=== PATIENT | female | born 1945 | race Caucasian/White ===

== ENCOUNTER 2016-07-28 12:28 | Inpatient (IN) | payer MEDICARE, MEDICAID ==
[~2016-07-28] VITALS: Ht 160 cm; Wt 86.0 kg
[2016-07-28] VITALS (7 sets, daily range): BP systolic 127–144; BP diastolic 60–78; PULSE 80–89; RESP 18–20; TEMP 97.8–98.2; O2SAT 95–98
[~2016-07-28 12:28] MED LIST: ALPR.5 PO; CELE20TA PO; CREON24 PO; HYDR-3516 PO; IPRA1POW8 NEB; LEVO50TA4 PO; METO25TA3 PO; MYLASUS2 PO; POTA10CA PO; QUET1TAB7 PO; XARE15TA PO; ZANTTAB PO
--- NOTE | 2016-07-28 13:04 | PD ---
HPI Chief Complaint: General Weakness Time Seen by Provider: 12:48 Travel History International Travel<30 days: No Contact w/Intl Traveler<30days: No Traveled to known affect area: No History of Present Illness HPI Patient is a 70-year-old female who presents to emergency room for evaluation of general weakness. Patient reports that she does not know why she is in the emergency room, patient reports that she cannot provide any information about her health care, requested I call her primary care doctor at home docs. Patient reports that she has been coughing, reports that she has had a productive cough for an unknown period of time. Patient denies chest pain. Patient reports that she does use 2 L of oxygen at all times, patient reports that her primary care doctor recently increased her oxygen to 3 L. Patient is alert to person and place, requests that I did not ask any questions and I just call her primary care doctor as "they know everything." Patient refuses to provide further HPI at this time. PFSH Past Medical History Hx Anticoagulant Therapy: Yes (XARELTO) Arthritis: Yes (HANDS) Asthma: No Atrial Fibrillation: Yes Autoimmune Disease: No Blood Disorders: No Anxiety: Yes Depression: Yes Heart Rhythm Problems: Yes Cancer: Yes (HX LUNG CA) Cardiac Catheterization: Yes Cardiovascular Problems: Yes (HBP) High Cholesterol: No Chemotherapy: Yes (HX) Chest Pain: Yes Congestive Heart Failure: Yes COPD: Yes Cerebrovascular Accident: No Coronary Artery Disease: Yes Diabetes: No Diminished Hearing: Yes Endocrine: No Fibromyalgia: Yes Gastrointestinal Disorders: Yes GERD: Yes Glaucoma: No Genitourinary: No Headaches: Yes Hepatitis: No Hiatal Hernia: No Hypertension: Yes Immune Disorder: No Implanted Vascular Access Dvce: No Kidney Stones: No Musculoskeletal: No Neurologic: No Psychiatric: Yes Reproductive: No Respiratory: Yes (COPD) Immunizations Current: Yes Migraines: No Myocardial Infarction: Yes (X2) Pneumonia: Yes Radiation Therapy: Yes Renal Failure: No Seizures: No Sickle Cell Disease: No Sleep Apnea: No Thyroid Disease: Yes Ulcer: No Menopausal: Yes : 1 Para: 1 Miscarriage: 0 : 0 Past Surgical History Abdominal Surgery: Yes AICD: No Arteriovenous Shunt: No Body Medical Devices: Neck stent Cardiac Surgery: No Section: No Cholecystectomy: Yes Ear Surgery: No Endocrine Surgery: No Eye Surgery: No Genitourinary Surgery: No Gynecologic Surgery: No Insulin Pump: No Joint Replacement: No Neurologic Surgery: No Oral Surgery: No Pacemaker: No Thoracic Surgery: No Other Surgery: Yes (POLYPS REMOVED FROM LARYNX; ENDOSCOPY) Social History Alcohol Use: No Tobacco Use: No Substance Use: No Allergies-Medications (Allergen,Severity, Reaction): Coded Allergies: Adhesives (Verified Allergy, Severe, RASK, 07/28/16) skin breakdown Calcium Channel Blockers (Verified Allergy, Severe, DIFFICULTY BREATHING, 05/03/16) Entex LA (Verified Allergy, Severe, Anaphylaxis, 05/03/16) Marcaine (Verified Allergy, Severe, DIFFICULTY BREATHING, 05/03/16) Minocin (Verified Allergy, Severe, DIFFICULTY BREATHING, 05/03/16) Nonsteroidal Anti-Inflammatory Agts (Verified Allergy, Severe, DIFFICULTY BREATHING, 05/03/16) PEANUTS (Verified Allergy, Severe, lips swelling, 05/03/16) Penicillin (Verified Allergy, Severe, DIFFICULTY BREATHING, 05/03/16) Prilosec (Verified Allergy, Severe, DIFFICULTY BREATHING, 05/03/16) Promethazine (Verified Allergy, Severe, DIFFICULTY BREATHING, 05/03/16) Sulfa (Verified Allergy, Severe, DIFFICULTY BREATHING, 05/03/16) Prednisone (Verified Allergy, Intermediate, rash and lips swell, 05/03/16) Zyrtec (Verified Allergy, Intermediate, rash, 05/03/16) Zyprexa (Verified Adverse Reaction, Severe, Severe vomiting., 05/03/16) Fluticasone (Verified Adverse Reaction, Intermediate, Rawness of the skin around the nose. Inhaled steroids do , 05/03/16) the same to her mouth. Omeprazole (Verified Adverse Reaction, Intermediate, [place] funny, 05/03/16) Zithromax (Verified Adverse Reaction, Intermediate, Says it made her jittery and it was harder to breathe. 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 Not sure would get same reaction to Injectable. Lian Huber MD. Klonapen (Adverse Reaction, Severe, Caused amnesia and a fall. , 07/10/13) Reported Meds & Prescriptions Reported Meds & Active Scripts Active Xarelto (Rivaroxaban) 15 Mg Tab 20 Mg PO DAILY Quetiapine (Quetiapine Fumarate) 25 Mg Tab 25 Mg PO BID Creon (Amylase/Lipase/Protease) 24,000-76,000-120,000 Units Cap 1 Cap PO TID Metoprolol Tartrate 25 Mg Tab 25 Mg PO Q12HR Hydrocodone-Acetaminophen 5-325 mg Tab 1 Tab PO Q4H PRN Celexa (Citalopram Hydrobromide) 20 Mg Tab 40 Mg PO DAILY Xanax (Alprazolam) 0.5 Mg Tab 0.5 Mg PO Q8H PRN Reported Ipratropium [place] 1 Pow Pow 0.5 Mg NEB TID Levothyroxine (Levothyroxine Sodium) 50 Mcg Tab 50 Mcg PO DAILY Zantac 150 Maximum Strength (Ranitidine HCl) 150 Mg Tab 150 Mg PO BID Mylanta Liq (Pxtcrnri-Zigcekkcx-Tuoikfktsew Liq) 200-200-20 Mg/5 Ml Susp 30 Ml PO Q8HR Take between meals or as directed. Shake well. Maximum 120 ml/24 hrs. Potassium Chloride ER (Potassium Chloride) 10 Meq Cap 10 Meq PO DAILY Review of Systems Except as stated in HPI: all other systems reviewed are Neg General / Constitutional: No: Fever Eyes: No: Visual changes HENT: No: Headaches Cardiovascular: No: Chest Pain or Discomfort Respiratory: Positive: Cough Gastrointestinal: No: Abdominal Pain Genitourinary: No: Dysuria Musculoskeletal: No: Pain Skin: No Rash Neurologic: Positive: Weakness Psychiatric: No: Depression Endocrine: No: Polydipsia Hematologic/Lymphatic: No: Easy Bruising Physical Exam Narrative GENERAL: No acute distress SKIN: Warm and dry. HEAD: Atraumatic. Normocephalic. ENT: No nasal bleeding or discharge. Mucous membranes pink and moist. NECK: Trachea midline. No JVD. CARDIOVASCULAR: Regular rate and rhythm. No murmur appreciated. RESPIRATORY: Patient with scattered wheezing throughout upper and lower lobes lungs . Breath sounds equal bilaterally. GASTROINTESTINAL: Abdomen soft, non-tender, nondistended. Hepatic and splenic margins not palpable. MUSCULOSKELETAL: No obvious deformities. No clubbing. No cyanosis. No edema. NEUROLOGICAL: Awake and alert. No obvious cranial nerve deficits. Motor grossly within normal limits. Normal speech. PSYCHIATRIC: Appropriate mood and affect; insight and judgment normal. Data Data Last Documented VS Vital Signs Date Time Temp Pulse Resp B/P Pulse Ox O2 Delivery O2 Flow Rate FiO2 07/28/16 17:30 97.8 89 18 137/68 96 Room Air 3 Orders Electrocardiogram (07/28/16 13:04) B-Type Natriuretic Peptide (07/28/16 13:04) Ckmb (Isoenzyme) Profile (07/28/16 13:04) Complete Blood Count With Diff (07/28/16 13:04) Comprehensive Metabolic Panel (07/28/16 13:04) Magnesium (Mg) (07/28/16 13:04) Prothrombin Time / Inr (Pt) (07/28/16 13:04) Act Partial Throm Time (Ptt) (07/28/16 13:04) Troponin I (07/28/16 13:04) Lipase (07/28/16 13:04) Chest, Single Ap (07/28/16 13:04) Ecg Monitoring (07/28/16 13:04) Iv Access Insert/Monitor (07/28/16 13:04) Oximetry (07/28/16 13:04) Oxygen Administration (07/28/16 13:04) Sodium Chloride 0.9% Flush (Ns Flush) (07/28/16 13:15) Albuterol-Ipratropium Neb (Duoneb Neb) (07/28/16 13:15) Ct Pulmonary Angiogram (07/28/16 14:32) Iohexol 350 Inj (Omnipaque 350 Inj) (07/28/16 15:36) Albuterol-Ipratropium Neb (Duoneb Neb) (07/28/16 17:15) Admit Order (Ed Use Only) (07/28/16 17:48) Labs Laboratory Tests Test 07/28/16 11:30 White Blood Count 4.8 TH/MM3 Red Blood Count 3.53 MIL/MM3 Hemoglobin 10.3 GM/DL Hematocrit 31.3 % Mean Corpuscular Volume 88.5 FL Mean Corpuscular Hemoglobin 29.3 PG Mean Corpuscular Hemoglobin 33.1 % Concent Red Cell Distribution Width 16.7 % Platelet Count 196 TH/MM3 Mean Platelet Volume 7.2 FL Neutrophils (%) (Auto) 74.6 % Lymphocytes (%) (Auto) 13.1 % Monocytes (%) (Auto) 9.0 % Eosinophils (%) (Auto) 2.5 % Basophils (%) (Auto) 0.8 % Neutrophils # (Auto) 3.6 TH/MM3 Lymphocytes # (Auto) 0.6 TH/MM3 Monocytes # (Auto) 0.4 TH/MM3 Eosinophils # (Auto) 0.1 TH/MM3 Basophils # (Auto) 0.0 TH/MM3 CBC Comment DIFF FINAL Differential Comment Prothrombin Time 12.3 SEC Prothromb Time International 1.1 RATIO Ratio Activated Partial 31.9 SEC Thromboplast Time Sodium Level 139 MEQ/L Potassium Level 3.9 MEQ/L Chloride Level 101 MEQ/L Carbon Dioxide Level 33.7 MEQ/L Anion Gap 4 MEQ/L Blood Urea Nitrogen 8 MG/DL Creatinine 0.92 MG/DL Estimat Glomerular Filtration 61 ML/MIN Rate Random Glucose 101 MG/DL Calcium Level 9.3 MG/DL Magnesium Level 2.2 MG/DL Total Bilirubin 0.5 MG/DL Aspartate Amino Transf 9 U/L (AST/SGOT) Alanine Aminotransferase 19 U/L (ALT/SGPT) Alkaline Phosphatase 67 U/L Total Creatine Kinase 41 U/L Troponin I 0.05 NG/ML B-Type Natriuretic Peptide 128 PG/ML Total Protein 6.6 GM/DL Albumin 3.4 GM/DL Lipase 181 U/L [facility] Medical Decision Making Medical Screen Exam Complete: Yes Emergency Medical Condition: Yes Interpretation(s) Vital Signs Date Time Temp Pulse Resp B/P Pulse Ox O2 Delivery O2 Flow Rate FiO2 07/28/16 12:44 98.2 85 20 136/60 98 Differential Diagnosis electrolyte abnormality, pneumonia, CHF, COPD exacerbation, pneumothorax Narrative Course Patient is a 70 year old female who presents to the ER with c/o of generalized weakness. Patient reports that she has been coughing, reports that she is productive cough. Patient unable to provide further history of present illness this time. Patient requests that I call her primary care doctor for further information about her health care. patients pcp: Guillermo Cm [phone] - pt request that I call Saloni Putnam if I want to know why she was sent to the ER call made to home aakash Campos from [facility] sent pt to ER as she has complete opacification of right hemithorax, pt with hx of lung cancer, reports that pt has been complaining of increasing sob discussed with tayla that this opacification has been there in the past, patient has been seen by pulmonary doctors, Dr. Mckenna and performed a bronchoscopy on previous admission. Tayla with home docs requests the patient be admitted and be seen by pulmonary physicians for possible bronchoscopy. I went to patient's room and reevaluated her, pt now finally speaking to me. pt reports that she has been feeling increasingly sob. pt reports that her oxygen had to be increased from 2 liter to 3 liter. pt reports that she would like to be admitted to the hospital so that she can have bronchoscopy performed. plan to admit her to the hospital under family medicine service as pt's family pcp dr amber pemberton case discussed with nathan hospitalist, accepts pt to dr betts service for obs Diagnosis Primary Impression: COPD exacerbation Additional Impressions: right lung opacification SOB (shortness of breath) Admitting Information Admitting Physician Requests: Observation Lizbeth Abraham DO Jul 28, 2016 13:04
[2016-07-28] MEDS: SODIUM CHLORIDE 0.9% FLUSH 5 ML FLUSH IVF PRN (13:09)
[2016-07-28] MEDS: RESP: ALBUTEROL 2.5 MG/IPRATROPIUM 0.5 MG NEB (SCH) INH ×2 (13:14→13:15)
[2016-07-28 13:34] LABS: AUTOMATED NEUTROPHIL # 3.6 TH/MM3 (1.8-7.7); BASOPHIL % 0.8 % (0.0-2.0); EOSINOPHIL # 0.1 TH/MM3 (0-0.4); EOSINOPHIL % 2.5 % (0.0-4.0); HEMATOCRIT 31.3 % (35.0-46.0); HEMO FLAGS DIFF FINAL; LYMPH % 13.1 % (9.0-44.0); LYMPHOCYTE # 0.6 TH/MM3 (1.0-4.8); MEAN CELL VOLUME 88.5 FL (80.0-100.0); MEAN CORPUSCULAR HEMOGLOBIN 29.3 PG (27.0-34.0); MEAN CORPUSCULAR HGB CONC 33.1 % (32.0-36.0); NEUT % 74.6 % (16.0-70.0); PLATELET COUNT 196 TH/MM3 (150-450); RED BLOOD COUNT 3.53 MIL/MM3 (4.00-5.30); RED CELL DISTRIBUTION WIDTH 16.7 % (11.6-17.2); WHITE BLOOD COUNT 4.8 TH/MM3 (4.0-11.0)
[2016-07-28 13:45] LABS: APTT (PATIENT) 31.9 SEC (24.3-30.1); INTERNATIONAL NORMALIZED RATIO 1.1 RATIO; PROTHROMBIN TIME - PATIENT 12.3 SEC (9.8-11.6)
--- NOTE | 2016-07-28 13:46 | RADRPT ---
EXAM DATE/TIME: 07/28/2016 13:04 [facility] COMPARISON: CT THORAX W/O CONTRAST, June 18, 2016, 9:16. CHEST SINGLE AP, June 172015, 4:29. INDICATIONS : Short of breath. MEDICAL HISTORY : Carcinoma, lung. SURGICAL HISTORY : Right lung surgery. ENCOUNTER: Initial ACUITY: 1 day PAIN SCORE: 0/10 LOCATION: Bilateral chest FINDINGS: AP upright portable view of the chest demonstrates stable appearance of near total opacification of t he right hemithorax but air identified only within the right main bronchus and trachea. The left pedro luis thorax is clear. Osseous structures are unremarkable. CONCLUSION: Persistent opacification of the right hemithorax. The left hemithorax is clear. Rox Rizvi MD on July 28, 2016 at 13:43 Board Certified Radiologist. This report was verified electronically.
[2016-07-28 13:52] LABS: ALT (GPT) 19 U/L (10-53); ANION GAP 4 MEQ/L (5-15); AST (GOT) 9 U/L (15-37); BICARBONATE 33.7 MEQ/L (21.0-32.0); BLOOD UREA NITROGEN 8 MG/DL (7-18); CHLORIDE 101 MEQ/L (98-107); GLOMERULAR FILTRATION RATE 61 ML/MIN (>89); MAGNESIUM 2.2 MG/DL (1.5-2.5); POTASSIUM 3.9 MEQ/L (3.5-5.1); SODIUM (NA) 139 MEQ/L (136-145)
[2016-07-28 13:54] LABS: ALKALINE PHOSPHATASE 67 U/L (45-117); TOTAL BILIRUBIN ADULT 0.5 MG/DL (0.2-1.0)
[2016-07-28 13:58] LABS: CREATINE KINASE 41 U/L (26-192)
[2016-07-28] MEDS ORDERED: IOHEXOL 350 MG/ML 10 ML VIAL (for RAD DIAG) IV ONE (15:36)
--- NOTE | 2016-07-28 15:55 | RADRPT ---
EXAM DATE/TIME: 07/28/2016 15:07 [facility] COMPARISON: CT ABDOMEN & PELVIS W CONTRAST, June 18, 2016, 14:21. CT THORAX W/O CONTRAST, June 18, 2016, 9:16. INDICATIONS : General weakness. Cough. Short of breath with exertion. IV CONTRAST: 50 cc Omnipaque 350 (iohexol) IV RADIATION DOSE: 16.75 CTDIvol (mGy) MEDICAL HISTORY : Myocardial infarction. Congestive heart failure. Chronic obstructive pulmonary disease. Lung cancer. SURGICAL HISTORY : Cholecystectomy. ENCOUNTER: Initial ACUITY: 2 days PAIN SCALE: 0/10 LOCATION: Chest TECHNIQUE: Volumetric scanning of the chest was performed using a pulmonary embolism protocol MIP images were re constructed. Using automated exposure control and adjustment of the mA and/or kV according to patien t size, radiation dose was kept as low as reasonably achievable to obtain optimal diagnostic quality images. FINDINGS: There is complete opacification of the right hemithorax predominantly related to consolidation of the right lung and marked elevation of the right hemidiaphragm. No significant pleural effusion is note d. The right main pulmonary artery is markedly narrowed. There is minimal irregularity involving th e anterior wall of the right main pulmonary artery which may represent minimal chronic pulmonary embo lism. No pulmonary embolism is noted within the left pulmonary artery or its branches. Scattered castro bpleural blebs are noted within the left upper lung field medially. No alveolar consolidation is not ed within the left lung to suggest pneumonia. Minimal scattered scarring and/or atelectasis is noted within the left lung base. No mediastinal, hilar or axillary lymphadenopathy is noted. Degenerativ e changes and scoliosis of the thoracic spine are noted. A 2 cm left renal mass is again noted and u nchanged. CONCLUSION: 1. Complete opacification of the right hemithorax which is predominantly related to chronic alveolar consolidation of the right lung as well as marked elevation of the right hemidiaphragm. No significa nt pleural effusion is noted. 2. Truncation of the right main pulmonary artery with minimal irregularity involving the anterior wal l of the main pulmonary artery on the right suggestive of minimal chronic pulmonary emboli. 3. The left lung is clear. 4. No evidence of left-sided pulmonary emboli. 5. Minimal subpleural blebs within the left upper lung field medially. 6. Degenerative changes and scoliosis of the thoracic spine. 7. 2 cm left renal mass is unchanged. Eliot Rosenbaum MD on July 28, 2016 at 15:31 Board Certified Radiologist. This report was verified electronically.
[2016-07-28] MEDS ORDERED: RESP: ALBUTEROL 2.5 MG/IPRATROPIUM 0.5 MG NEB (SCH) INH ONE (17:15)
[2016-07-28] MEDS ORDERED: RESP: ALBUTEROL 2.5 MG/IPRATROPIUM 0.5 MG NEB (SCH) NEB ONE (21:30)
[2016-07-28] MEDS: ALPRAZolam 0.5 MG TAB PO PRN (23:38)
[2016-07-28] MEDS: ACETAMINOPHEN/HYDROcodone 325 MG/5 MG TAB PO PRN (23:38)
[2016-07-29] VITALS (9 sets, daily range): BP systolic 120–156; BP diastolic 56–87; PULSE 63–96; RESP 18–22; TEMP 97–98.5; O2SAT 95–100
[2016-07-29] MEDS: LEVOTHYROXINE SODIUM 50 MCG TAB PO SCH (06:09)
[2016-07-29] MEDS: ALUMINUM/MAGNESIUM/SIMETH 30 ML CUP PO SCH ×3 (06:09→21:16)
[2016-07-29] MEDS: RESP: IPRATROPIUM 0.5 MG/2.5 ML NEB NEB SCH ×2 (08:00→14:16)
--- NOTE | 2016-07-29 08:39 | HHI.HP ---
HPI Service [facility] Primary Care Physician Roxi Boston M.D. Admission Diagnosis SOB, COPD Exacerbation, right lung opacification Diagnoses: Chief Complaint: SOB (Sherron Mota) Travel History International Travel<30 Days: No Contact w/Intl Traveler <30 Da: No Traveled to Known Affected Are: No (Sherron Mota) History of Present Illness This is a pleasant 70-year-old female with significant past medical history of COPD oxygen dependent, CAD status post OK 2, dementia, 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 fib, depression, anxiety, hypertension. Patient had recent hospitalization for COPD, shortness of breath , was found with right lung opacification and collapse. Underwent bronchoscopy and lung biopsy per Dr. Umana, findings were benign. It was thought that changes were secondary to chronic fibrosis. She was discharge in stable condition. Patient was brought back to the emergency room for evaluation for generalized weakness. During emergency room evaluation, patient was not able to provide any information. Emergency room physician contacted primary care physician and apparently patient had been coughing and has had increased shortness of breath. Patient is on oxygen at 2 L and was increased to 3 L. Patient was evaluated in the emergency room, laboratory workup was essentially unremarkable. BNP was 128. Patient was hemodynamically stable. Sats were 98 % on 3 L, blood pressure 136/60, respiratory rate 20, heart rate 85, temperature 98.2. CTA of the chest was completed showing complete opacification of right hemithorax which is predominantly related to chronic alveolar consolation of the right lung as well as marked elevation of the right hemidiaphragm. No significant pleural effusion. Truncation of the right main pulmonary artery with minimal irregularity involving the anterior wall of the main pulmonary artery and the right suggestive of minimal chronic pulmonary emboli. Left lung is clear. No evidence of left pulmonary emboli. Minimal subpleural blebs within the left upper lung field medially. 2 cm left renal mass is unchanged. This changes appear similar to previous CT findings. Emergency room physician spoke to patient's PCP, they spoke to Zee from [facility] and she requested that the patient be admitted and be seen by pulmonary for possible bronchoscopy. Patient is now evaluated, she doesn't want to talk, she's keeping her eyes closed. She knows she is in the hospital and knows the year. She doesn't know why she is here but states that she has been short of breath and feeling weak and shaky. She thinks she may have had a fever and some chills, denies any chest pain. Patient lives at home, has home health care. Patient is admitted for further evaluation and treatment. (Sherron Mota) Review of Systems ROS Limitations: Poor Historian Respiratory: COMPLAINS OF: Cough, Sputum production, Shortness of breath Other WEAKNESS (Sherron Mota) Past Family Social History Past Medical History COPD CAD s/p OK x2 Neck abscess (drained 02/19/16) Esophageal Stricture, s/p esophageal dilation 08/2015 Small Cell Lung Cancer on R 04/21 [id number] Chemo & Radiation Diverticulosis Afib Depression Anxiety HTN Hypothyroidism Dementia Admitted with SOB, found with collapsed right upper lobe, occlusion RUL bronchus , had bronch/lung bx, benign findings. Changes likely due to chronic fibrosis. Left renal mass Past Surgical History Vocal Cord Polypectomy Breast Bx Laparoscopic Choly Esophageal Dilations Recurrent PortaCath Removed in 11/24 Cardiac Cath: ' Dr Urbina Normal Coronaries. Bilateral Cataracts Permanent IVC filter placed 08/30 Rhinolaryngoscopy 2011 Cardiac Cath 01/26 Dr Essie Paz at [facility] Permanent IVC filter placed 08/30 EGD and Colonoscopy at [facility] 08/30 S/P bronch, lung bx 06/2016, benign findings. Reported Medications Reported Meds & Active Scripts Active Xarelto (Rivaroxaban) 15 Mg Tab 20 Mg PO DAILY Quetiapine (Quetiapine Fumarate) 25 Mg Tab 25 Mg PO BID Creon (Amylase/Lipase/Protease) 24,000-76,000-120,000 Units Cap 1 Cap PO TID Metoprolol Tartrate 25 Mg Tab 25 Mg PO Q12HR Hydrocodone-Acetaminophen 5-325 mg Tab 1 Tab PO Q4H PRN Celexa (Citalopram Hydrobromide) 20 Mg Tab 40 Mg PO DAILY Xanax (Alprazolam) 0.5 Mg Tab 0.5 Mg PO Q8H PRN Reported Ipratropium [place] 1 Pow Pow 0.5 Mg NEB TID Levothyroxine (Levothyroxine Sodium) 50 Mcg Tab 50 Mcg PO DAILY Zantac 150 Maximum Strength (Ranitidine HCl) 150 Mg Tab 150 Mg PO BID Mylanta Liq (Vfswlnia-Wgtnzxlwe-Ykzykyxpcux Liq) 200-200-20 Mg/5 Ml Susp 30 Ml PO Q8HR Take between meals or as directed. Shake well. Maximum 120 ml/24 hrs. Potassium Chloride ER (Potassium Chloride) 10 Meq Cap 10 Meq PO DAILY (Sherron Mota) Allergies: Coded Allergies: Adhesives (Verified Allergy, Severe, RASK, 07/29/16) skin breakdown Calcium Channel Blockers (Verified Allergy, Severe, DIFFICULTY BREATHING, 07/29/16) Entex LA (Verified Allergy, Severe, Anaphylaxis, 07/29/16) Marcaine (Verified Allergy, Severe, DIFFICULTY BREATHING, 07/29/16) Minocin (Verified Allergy, Severe, DIFFICULTY BREATHING, 07/29/16) Nonsteroidal Anti-Inflammatory Agts (Verified Allergy, Severe, DIFFICULTY BREATHING, 07/29/16) PEANUTS (Verified Allergy, Severe, lips swelling, 07/29/16) Penicillin (Verified Allergy, Severe, DIFFICULTY BREATHING, 07/29/16) Prilosec (Verified Allergy, Severe, DIFFICULTY BREATHING, 07/29/16) Promethazine (Verified Allergy, Severe, DIFFICULTY BREATHING, 07/29/16) Sulfa (Verified Allergy, Severe, DIFFICULTY BREATHING, 07/29/16) Prednisone (Verified Allergy, Intermediate, rash and lips swell, 07/29/16) Zyrtec (Verified Allergy, Intermediate, rash, 07/29/16) Zyprexa (Verified Adverse Reaction, Severe, Severe vomiting., 07/29/16) Fluticasone (Verified Adverse Reaction, Intermediate, Rawness of the skin around the nose. Inhaled steroids do , 07/29/16) the same to her mouth. Omeprazole (Verified Adverse Reaction, Intermediate, [place] funny, 07/29/16) Zithromax (Verified Adverse Reaction, Intermediate, Says it made her jittery and it was harder to breathe. , 07/29/16) *MDRO Multi-Drug Resistant Organism (Unverified Adverse Reaction, Unknown , ESBL, 07/29/16) ESBL E. coli (urine) - 01/2014 Uncoded Allergies: Racemic Epinephrine Inhaled (Allergy, Intermediate, Flushing, Mouth Tingling , 08/26/12) Same reaction w/o lips swelling as with inhaled albuterol. Not sure would get same reaction to Injectable. Lian Huber MD. Jacob (Adverse Reaction, Severe, Caused amnesia and a fall. , 07/10/13) Active Ordered Medications Inpatient Medications Acetaminophen/ Hydrocodone Bitart ([place] 5-325 Mg) 1 tab Q4H PRN PO PAIN Last administered on 07/28/16 23:38; Start 07/28/16 at 23:30 Al Hydrox/Mg Hydrox/Simethicone (Mag-Al Plus Susp Liq) 30 ml Q8H PO Last administered on 07/29/16 06:09; Start 07/29/16 at 06:00 Albuterol/ Ipratropium (Duoneb Neb) 1 ampule ONCE ONCE NEB Last administered on 07/28/16 21:58; Start 07/28/16 at 21:30; Stop 07/28/16 at 21:31; Status DC Alprazolam (Xanax) 0.5 mg Q8H PRN PO ANXIETY Last administered on 07/28/16 23: 38; Start 07/28/16 at 23:30 Amylase/Lipase/ Protease (Creon 24-76-120) 1 cap TIDAC PO ; Start 07/29/16 at 08 :00 Citalopram Hydrobromide (CeleXA) 40 mg DAILY PO ; Start 07/29/16 at 09:00 Famotidine (Pepcid) 20 mg BID PO ; Start 07/29/16 at 09:00 Ipratropium [place] (Atrovent Neb) 0.5 mg BID NEB NEB ; Start 07/29/16 at 08:00 IV Flush (NS Flush) 2 ml UNSCH PRN IVF FLUSH AFTER USING IV ACCESS Last administered on 07/28/16 13:09; Start 07/28/16 at 13:15 Levothyroxine Sodium (Synthroid) 50 mcg DAILY@06 PO Last administered on 06:09; Start 07/29/16 at 06:00 Metoprolol Tartrate (Lopressor) 25 mg BID PO ; Start 07/29/16 at 09:00 Potassium Chloride (KCl) 10 meq DAILY PO ; Start 07/29/16 at 09:00 Quetiapine Fumarate (SEROquel) 25 mg BID PO ; Start 07/29/16 at 09:00 Rivaroxaban (Xarelto) 20 mg DAILY PO ; Start 07/29/16 at 09:00 Family History Alcoholism, Drug Abuse, Suicidal Depression/Anxiety. Cancer of the larynx in her brother (Smoker). Sister has gout and renal cancer. One sister has polyposis (Denise), RA in oldest sister. 16 yo niece hung herself. 1 sister with thyroid cancer. Mother was 54 years and killed herself with a 22 pistol. 1 Brother shot himself at age 46. Social History Marital Status: and lives alone Living Situation: Lives in own home, son lives across street Tobacco: DC'd cigs in . Alcohol: None Illicit drug use: none (Sherron Mota) Physical Exam Vital Signs Vital Signs Date Time Temp Pulse Resp B/P Pulse Ox O2 Delivery O2 Flow Rate FiO2 07/29/16 05:48 98.5 85 18 120/56 95 07/29/16 00:37 97.4 89 20 153/73 97 07/29/16 00:12 96 22 156/72 100 Nasal Cannula 2 07/28/16 21:58 95 Nasal Cannula 3.00 07/28/16 20:24 80 18 127/78 95 Nasal Cannula 2 07/28/16 17:30 97.8 89 18 137/68 96 Room Air 3 07/28/16 15:31 98.0 83 18 144/68 98 Room Air 07/28/16 13:15 98 Nasal Cannula 3.00 07/28/16 12:50 98 Nasal Cannula 3 07/28/16 12:50 89 20 98 Nasal Cannula 3 07/28/16 12:50 20 98 Nasal Cannula 3 07/28/16 12:44 98.2 85 20 136/60 98 Physical Exam GENERAL: This is a well-nourished, well-developed patient, in no apparent distress. SKIN: No rashes, ecchymoses or lesions. Cool and dry. HEAD: Atraumatic. Normocephalic. No temporal or scalp tenderness. EYES: Pupils equal round and reactive. Extraocular motions intact. No scleral icterus. No injection or drainage. ENT: Nose without bleeding, purulent drainage or septal hematoma. Throat without erythema, tonsillar hypertrophy or exudate. Uvula midline. Airway patent. NECK: Trachea midline. No JVD or lymphadenopathy. Supple, nontender, no meningeal signs. CARDIOVASCULAR: Regular rate and rhythm without murmurs, gallops, or rubs. RESPIRATORY: Breath sounds diminished. GASTROINTESTINAL: Abdomen soft, non-tender, nondistended. No hepato-splenomegaly , or palpable masses. No guarding. MUSCULOSKELETAL: Extremities without clubbing, cyanosis, or edema. No joint tenderness, effusion, or edema noted. No calf tenderness. Negative Homans sign bilaterally. NEUROLOGICAL: Opens eyes to close but keeping them closed during conversation, oriented to self, place, year. Poor historian. No focal deficits. Laboratory Laboratory Tests Test 07/28/16 11:30 White Blood Count 4.8 Red Blood Count 3.53 Hemoglobin 10.3 Hematocrit 31.3 Mean Corpuscular Volume 88.5 Mean Corpuscular Hemoglobin 29.3 Mean Corpuscular Hemoglobin 33.1 Concent Red Cell Distribution Width 16.7 Platelet Count 196 Mean Platelet Volume 7.2 Neutrophils (%) (Auto) 74.6 Lymphocytes (%) (Auto) 13.1 Monocytes (%) (Auto) 9.0 Eosinophils (%) (Auto) 2.5 Basophils (%) (Auto) 0.8 Neutrophils # (Auto) 3.6 Lymphocytes # (Auto) 0.6 Monocytes # (Auto) 0.4 Eosinophils # (Auto) 0.1 Basophils # (Auto) 0.0 CBC Comment DIFF FINAL Differential Comment Prothrombin Time 12.3 Prothromb Time International 1.1 Ratio Activated Partial 31.9 Thromboplast Time Sodium Level 139 Potassium Level 3.9 Chloride Level 101 Carbon Dioxide Level 33.7 Anion Gap 4 Blood Urea Nitrogen 8 Creatinine 0.92 Estimat Glomerular Filtration 61 Rate Random Glucose 101 Calcium Level 9.3 Magnesium Level 2.2 Total Bilirubin 0.5 Aspartate Amino Transf 9 (AST/SGOT) Alanine Aminotransferase 19 (ALT/SGPT) Alkaline Phosphatase 67 Total Creatine Kinase 41 Troponin I 0.05 B-Type Natriuretic Peptide 128 Total Protein 6.6 Albumin 3.4 Lipase 181 (Sherron Mota) Result Diagram: 07/28/16 1130 07/28/16 [address] Angiography 07/28/16 1432 Signed Impressions: Service Date/Time: Thursday, July 28, 2016 15:07 - CONCLUSION: 1. Complete opacification of the right hemithorax which is predominantly related to chronic alveolar consolidation of the right lung as well as marked elevation of the right hemidiaphragm. No significant pleural effusion is noted. 2. Truncation of the right main pulmonary artery with minimal irregularity involving the anterior wall of the main pulmonary artery on the right suggestive of minimal chronic pulmonary emboli. 3. The left lung is clear. 4. No evidence of left-sided pulmonary emboli. 5. Minimal subpleural blebs within the left upper lung field medially. 6. Degenerative changes and scoliosis of the thoracic spine. 7. 2 cm left renal mass is unchanged. Eliot Rosenbaum MD Chest X-Ray 07/28/16 1304 Signed Impressions: Service Date/Time: Thursday, July 28, 2016 13:04 - CONCLUSION: Persistent opacification of the right hemithorax. The left hemithorax is clear. Rox Rizvi MD (Sherron Mota) Assessment and Plan Problem List: (1) COPD exacerbation (2) Atrial fibrillation (3) CAD (coronary artery disease) (4) Small cell lung cancer Plan: History (5) History of OK (myocardial infarction) (6) Anxiety (7) Depression (8) Renal mass Assessment and Plan Admit to Dr. Caputo 70-year-old female with history of COPD, oxygen dependent, lung cancer, recent admission for right lung opacification, underwent bronchial biopsy with findings of chronic fibrosis, benign findings. Patient presented to the emergency room with complaints of generalized weakness, increased shortness of breath. Likely COPD exacerbation Continue with scheduled DuoNeb's and when necessary Continue with oxygen at 2 L to keep sats greater than 90% Consult pulmonology for evaluation Imaging studies reviewed, findings similar to admission. Doubtful the patient will need further workup. She underwent bronc and biopsy, benign findings. History A. fib on chronic anticoagulation, stable Continue with home medications History of lung cancer, stable Continue to monitor Renal mass, stable -Monitor, f/u urology as OP Anxiety and depression, stable -continue with home meds DVT prophylaxis, continue with Xarelto Pepcid for GI prophylaxis Case management consultation for discharge planning, resume home health residential medications reviewed, initiated as indicated Plan of care discussed with patient, attending and registered nurse. Further management of the patient be dependent on the hospital course This patient was seen by myself and Dr. 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
[2016-07-29] MEDS: POTASSIUM CHLORIDE 10 MEQ CONTROLLED RELEASE TAB PO SCH (10:40)
[2016-07-29] MEDS: LIPASE/PROTEASE/AMYLASE (24,000/76,000/120,000) CAP PO SCH ×3 (10:40→17:59)
[2016-07-29] MEDS: METOPROLOL TARTRATE 25 MG TAB PO SCH ×2 (10:40→21:16)
[2016-07-29] MEDS: CITALOPRAM HYDROBROMIDE 40 MG TAB PO SCH (10:40)
[2016-07-29] MEDS: RIVAROXABAN 20 MG TAB PO SCH (10:40)
[2016-07-29] MEDS: QUEtiapine FUMARATE 25 MG TAB PO SCH ×2 (10:40→21:17)
[2016-07-29] MEDS: FAMOTIDINE 20 MG TAB PO SCH ×2 (10:40→21:16)
--- NOTE | 2016-07-29 10:47 | EKG ---
Date Performed: 07/28/2016 Time Performed: 13:20:48 PTAGE: 70 years EKG: ATRIAL FIBRILLATION BORDERLINE RIGHT AXIS DEVIATION ABNORMAL RHYTHM ECG PREVIOUS TRACING : 07/04/2016 12.00 Compared to prior tracing no significant change DOCTOR: Bryson Alvarado Interpretating Date/Time 07/29/2016 10:46:23
[2016-07-29] MEDS ORDERED: DICYCLOMINE HCL 10 MG CAP PO ONE (16:45)
[2016-07-29] MEDS: RESP: ALBUTEROL 2.5 MG/3 ML NEB (SCH) NEB ×2 (18:58→21:31)
[2016-07-29] MEDS: SODIUM CHLORIDE 0.9% FLUSH 5 ML FLUSH IVF PRN (21:16)
[2016-07-29] MEDS: ALPRAZolam 0.5 MG TAB PO PRN (21:17)
[2016-07-29] MEDS: ACETAMINOPHEN/HYDROcodone 325 MG/5 MG TAB PO PRN (21:22)
[2016-07-30] VITALS (7 sets, daily range): BP systolic 100–171; BP diastolic 53–79; PULSE 60–99; RESP 16–18; TEMP 97–98.6; O2SAT 95–100
[2016-07-30] MEDS: RESP: ALBUTEROL 2.5 MG/3 ML NEB (SCH) NEB ×4 (04:00→20:58)
[2016-07-30] MEDS: LEVOTHYROXINE SODIUM 50 MCG TAB PO SCH (06:14)
[2016-07-30] MEDS: ALUMINUM/MAGNESIUM/SIMETH 30 ML CUP PO SCH ×3 (06:14→21:01)
--- NOTE | 2016-07-30 06:48 | MB ---
cc: KODI BARRERA DATE OF CONSULTATION 07/29/2016 REASON FOR CONSULTATION COPD and dyspnea PRESENT ILLNESS This is a 70-year-old white female with a past history of COPD and coronary artery disease and history of lung cancer non-small cell type diagnosed in 2003. She has undergone radiation and chemotherapy. She also has had a history of hypertension and chronic atrial fibrillation, depression and anxiety. Recently was hospitalized for exacerbation of COPD and she does have a longstanding history of atelectasis of the right lung and underwent bronchoscopy and biopsy two months ago and has had chronic atelectasis due to obstruction of the upper lobe bronchus on the right and biopsies at this time were benign. She has chronic fibrotic changes in the right lung field and right pleura. The patient had been on home oxygen at 3 liters. She was brought to the emergency room due to shortness of breath, weakness and chest congestion and a CTA of the chest was done which showed a opacification of the right hemithorax with chronic alveolar consolidation of the right lung as well as elevation of the right hemidiaphragm with no significant effusion. He has truncation of the right main pulmonary artery with irregularity involving the anterior wall of the main pulmonary artery on the right suggestive of chronic minimal pulmonary emboli. She had a 2 cm left renal mass which was unchanged. The patient has had no hemoptysis. No fevers or chills. She does have anxiety, depression, weakness and abdominal discomfort. OTHER PAST HISTORY Includes: 1. Coronary artery disease with PA x2 2. History of esophageal stricture with dilatations. 3. History of non-small cell lung CA ischemia and radiation. 4. History of anxiety, depression and hypertension. PAST SURGICAL HISTORY Includes: 1. Multiple bronchoscopies 2. Vocal cord polypectomy 3. Breast biopsies 4. Cardiac catheterization 5. Cataract surgery 6. IVC filter placement for clots. MED LIST Included: 1. Xarelto 20 mg daily 2. Quetiapine 25 mg b.i.d. 3. Creon 1 capsule t.i.d. 4. Metoprolol 25 mg b.i.d. 5. Celexa 40 mg a day 6. Xanax 0.5 mg t.i.d. p.r.n. 7. Nebulized Atrovent solution three times a day 8. Potassium chloride 10 mEq daily HABITS The patient does not smoke at present and no significant alcohol use. ALLERGIES SULFA, PREDNISONE, ZYRTEC, PENICILLIN, MINOCIN, MARCAINE, ZYPREXA, FLUTICASONE AND ZITHROMAX. FAMILY HISTORY Noncontributory REVIEW OF SYSTEMS The patient has been overweight. She has wheezing, dyspnea, postnasal drip and cough, epigastric distress and reflux. She has no urinary symptoms. No leg or calf muscle pains. She has some joint pains in her extremities and leg swelling. PHYSICAL EXAMINATION This is a moderately obese elderly lady anxious and in no acute distress. VITAL SIGNS: Blood pressure 138/80, pulse is 85, respirations 20, temperature 97.5. HEENT: Head normocephalic. Pupils reactive. Nasal mucosae edematous. Throat mildly injected. NECK: Supple. No lymphadenopathy. No bruits. CHEST: Decreased breath sounds over the right lung [place] with occasional wheezes in the left lung [place]. HEART: The heart sounds are irregular S1-S2. No murmur. No S3. ABDOMEN: Soft and obese without masses or organomegaly or tenderness. Bowel sounds active. EXTREMITIES: Mild edema. Decreased pulses. Reflexes are brisk. There were no gross motor deficits. NEUROLOGIC: Cranial nerves are intact. IMPRESSION 1. COPD with chronic bronchitis and acute exacerbation. 2. 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 3. History of non-small cell lung CA status post Chemo-radiation. 4. History of myocardial infarct and ASHD. 5. Depression and anxiety 6. Atrial fibrillation PLAN The patient will be maintained on three liters of oxygen, nebulized Atrovent solution t.i.d. p.r.n. and she has been started on antidepressants. At this point, she does not require any steroids and if she is coughing up dark sputum, we will place her on antibiotic therapy. She is clinically stable. The patient can be discharged since we have already completed her bronchoscopy several weeks ago and found to have benign and no unusual infections. The chronic atelectasis of the lung likely will not reverse. A follow up chest x-ray will be done next month. Thank you for this consultation. MD REJI Ruth/STEPHANIE /10:50 PM 6:34 AM
--- NOTE | 2016-07-30 08:17 | HHI.PR ---
Subjective Remarks somnolent, tries to open eyes oriented to self and place "I don't feel well" can't elaborate, no resp. distress noted sats 96% on 3L/NC meds reviewed, given Seroquel, Xanax, and [place] at 2100. Objective Objective Results - Vital Signs Date Time Temp Pulse Resp B/P Pulse Ox O2 Delivery O2 Flow Rate FiO2 07/30/16 04:00 98.6 61 18 100/53 96 07/30/16 00:00 07/29/16 21:24 98.3 07/29/16 20:47 96 Nasal Cannula 3.00 07/29/16 20:00 97.5 78 20 144/87 100 07/29/16 16:19 97.8 63 20 130/60 96 07/29/16 14:16 98 Nasal Cannula 3.00 07/29/16 11:21 97.0 79 18 141/67 100 Result Diagram: 07/28/16 1130 07/28/16 [address] Angiography 07/28/16 1432 Signed Impressions: Service Date/Time: Thursday, July 28, 2016 15:07 - CONCLUSION: 1. Complete opacification of the right hemithorax which is predominantly related to chronic alveolar consolidation of the right lung as well as marked elevation of the right hemidiaphragm. No significant pleural effusion is noted. 2. Truncation of the right main pulmonary artery with minimal irregularity involving the anterior wall of the main pulmonary artery on the right suggestive of minimal chronic pulmonary emboli. 3. The left lung is clear. 4. No evidence of left-sided pulmonary emboli. 5. Minimal subpleural blebs within the left upper lung field medially. 6. Degenerative changes and scoliosis of the thoracic spine. 7. 2 cm left renal mass is unchanged. Eliot Rosenbaum MD Chest X-Ray 07/28/16 1304 Signed Impressions: Service Date/Time: Thursday, July 28, 2016 13:04 - CONCLUSION: Persistent opacification of the right hemithorax. The left hemithorax is clear. Rox Rizvi MD ROS General: Other (12 point ROS unable to obtain ) Physical Exam Physical Exam GENERAL: This is a well-nourished, well-developed patient, in no apparent distress. SKIN: No rashes, ecchymoses or lesions. Cool and dry. HEAD: Atraumatic. Normocephalic. No temporal or scalp tenderness. EYES: Pupils equal round and reactive. Extraocular motions intact. No scleral icterus. No injection or drainage. ENT: Nose without bleeding, purulent drainage or septal hematoma. Throat without erythema, tonsillar hypertrophy or exudate. Uvula midline. Airway patent. NECK: Trachea midline. No JVD or lymphadenopathy. Supple, nontender, no meningeal signs. CARDIOVASCULAR: Regular rate and rhythm without murmurs, gallops, or rubs. RESPIRATORY: Breath sounds diminished. GASTROINTESTINAL: Abdomen soft, non-tender, nondistended. No hepato-splenomegaly , or palpable masses. No guarding. MUSCULOSKELETAL: Extremities without clubbing, cyanosis, or edema. No joint tenderness, effusion, or edema noted. No calf tenderness. Negative Homans sign bilaterally. NEUROLOGICAL: Somnolent, difficult to assess. Urinary Catheter: No Vascular Central Line Catheter: No A/P Diagnosis: (1) COPD exacerbation (2) Atrial fibrillation (3) CAD (coronary artery disease) (4) Small cell lung cancer Plan: History (5) History of [place] (myocardial infarction) (6) Anxiety (7) Depression (8) Renal mass Assessment and Plan 70-year-old female with history of COPD, oxygen dependent, lung cancer, recent admission for right lung opacification, underwent bronchial biopsy with findings of chronic fibrosis, benign findings. Patient presented to the emergency room with complaints of generalized weakness, increased shortness of breath. Likely COPD exacerbation Continue with scheduled DuoNeb's and when necessary Continue with oxygen at 2 L to keep sats greater than 90% Consult pulmonology for evaluation-evaluated per Dr. Preciado, d/w him. No further work up requires. Continue duonebs, cleared for discharge. Imaging studies reviewed, findings similar to admission. Doubtful the patient will need further workup. She underwent bronc and biopsy, benign findings. -stable, no distress. History A. fib on chronic anticoagulation, stable Continue with home medications History of lung cancer, stable Continue to monitor Renal mass, stable -Monitor, f/u urology as OP Anxiety and depression, stable -continue with home meds -d/w RN, instructed not to give pain meds with benzos. Pt. overly sedated today DVT prophylaxis, continue with Xarelto Pepcid for GI prophylaxis Case management consultation for discharge planning, resume home health care will wait for pt. wake up stable, no resp. distress Plan to discharge later today F/U Dr. Preciado 2 weeks Diet-heart healthy Activity-as tolerated D/W RN D/W Dr. Caputo D/W pt. This patient was seen by myself and Dr. Caputo, this note is written on his behalf Problem Qualifiers (1) Atrial fibrillation: Qualified Code: I48.91 - Atrial fibrillation, unspecified type (2) CAD (coronary artery disease): (3) Depression: Qualified Code: F32.9 - Depression, unspecified depression type Sherron Mota Jul 30, 2016 08:17
[2016-07-30] MEDS: FAMOTIDINE 20 MG TAB PO SCH ×2 (09:20→21:02)
[2016-07-30] MEDS: LIPASE/PROTEASE/AMYLASE (24,000/76,000/120,000) CAP PO SCH ×3 (09:20→17:21)
[2016-07-30] MEDS: POTASSIUM CHLORIDE 10 MEQ CONTROLLED RELEASE TAB PO SCH (09:20)
[2016-07-30] MEDS: RIVAROXABAN 20 MG TAB PO SCH (09:21)
[2016-07-30] MEDS: QUEtiapine FUMARATE 25 MG TAB PO SCH ×2 (09:21→21:02)
[2016-07-30] MEDS: METOPROLOL TARTRATE 25 MG TAB PO SCH ×2 (09:21→21:02)
[2016-07-30] MEDS: CITALOPRAM HYDROBROMIDE 40 MG TAB PO SCH (09:21)
[2016-07-30] MEDS: RESP: IPRATROPIUM 0.5 MG/2.5 ML NEB NEB SCH ×2 (09:22→20:58)
[2016-07-30] MEDS: ALPRAZolam 0.5 MG TAB PO PRN ×2 (10:40→18:32)
--- NOTE | 2016-07-30 11:01 | HHI.FF ---
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 My clinical findings support the need for the requested home health care services because: Patient has SOB Deconditioned w/ increased weakness I certify that my clinical findings support that this patient is homebound because: Impaired cognitive ability/safety Hx COPD- exertion dyspnea/weakness Unsafe to leave home unassisted Need for psychosocial assistance Sherron Mota Jul 30, 2016 11:01
[2016-07-30] MEDS ORDERED: LACTULOSE SYRUP 20 GM/30 ML CUP PO PRN (11:45)
[2016-07-30] MEDS ORDERED: DICYCLOMINE HCL 20 MG TAB PO ONE (11:45)
--- NOTE | 2016-07-30 12:14 | HHI.PR ---
Subjective Remarks Coughed up yellow sputum. SOB and had abdominal pain.No fever Objective Vital Signs Date Time Temp Pulse Resp B/P Pulse Ox O2 Delivery O2 Flow Rate FiO2 07/30/16 12:03 98.0 60 18 122/58 100 07/30/16 09:25 95 Nasal Cannula 3.00 07/30/16 08:15 97.0 99 16 109/57 99 07/30/16 04:00 98.6 61 18 100/53 96 07/30/16 00:00 07/29/16 21:24 98.3 07/29/16 20:47 96 Nasal Cannula 3.00 07/29/16 20:00 97.5 78 20 144/87 100 07/29/16 16:19 97.8 63 20 130/60 96 07/29/16 14:16 98 Nasal Cannula 3.00 Result Diagram: 07/28/16 1130 07/28/16 1130 Objective Remarks This is a moderately obese elderly lady anxious and in no acute distress. HEENT: Head normocephalic. Pupils reactive. Nasal mucosae edematous. Throat mildly injected. NECK: Supple. No lymphadenopathy. No bruits. CHEST: Decreased breath sounds over the right lung san[place] with occasional wheezes in the left lung sanford. HEART: The heart sounds are irregular S1-S2. No murmur. No S3. ABDOMEN: Soft and obese without masses or organomegaly or tenderness. Bowel sounds active. EXTREMITIES: Mild edema. Decreased pulses. Reflexes are 1 +. There were no gross motor deficits. NEUROLOGIC: Cranial nerves are intact. Assessment and Plan Assessment and Plan IMPRESSION 1. COPD with chronic bronchitis and acute exacerbation. 2. 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 3. History of non-small cell lung CA status post Chemo-radiation. 4. History of myocardial infarct and ASHD. 5. Depression and anxiety 6. Atrial fibrillation Plan : 1. Add Levaquin 500 mg daily. 2. Solumedrol 40 mg bid. 3. O2 at 3 L. 4. Nebs tid atrovent. 5. Protonix 40 mg daily. Wandy Preciado MD Jul 30, 2016 12:13
[2016-07-30] MEDS: methylPREDNISolone SOD SUCC 40 MG/1 ML VIAL IV PUSH SCH ×2 (13:09→21:01)
[2016-07-30] MEDS: LEVOFLOXACIN 500 MG TAB PO SCH (13:09)
[2016-07-30] MEDS: SODIUM CHLORIDE 0.9% FLUSH 5 ML FLUSH IVF PRN (21:01)
[2016-07-30] MEDS: ACETAMINOPHEN/HYDROcodone 325 MG/5 MG TAB PO PRN (23:04)
[2016-07-31] VITALS (7 sets, daily range): BP systolic 141–179; BP diastolic 67–77; PULSE 61–80; RESP 16–18; TEMP 97.3–98.5; O2SAT 98–100
[2016-07-31] MEDS: ALPRAZolam 0.5 MG TAB PO PRN ×2 (01:37→13:54)
[2016-07-31] MEDS: RESP: ALBUTEROL 2.5 MG/3 ML NEB (SCH) NEB ×3 (03:13→15:52)
[2016-07-31] MEDS: ALUMINUM/MAGNESIUM/SIMETH 30 ML CUP PO SCH ×2 (05:56→13:08)
[2016-07-31] MEDS: LEVOTHYROXINE SODIUM 50 MCG TAB PO SCH (05:56)
[2016-07-31] MEDS: METOPROLOL TARTRATE 25 MG TAB PO SCH (08:50)
[2016-07-31] MEDS: FAMOTIDINE 20 MG TAB PO SCH (08:50)
[2016-07-31] MEDS: CITALOPRAM HYDROBROMIDE 40 MG TAB PO SCH (08:50)
[2016-07-31] MEDS: LIPASE/PROTEASE/AMYLASE (24,000/76,000/120,000) CAP PO SCH ×3 (08:50→16:18)
[2016-07-31] MEDS: QUEtiapine FUMARATE 25 MG TAB PO SCH (08:50)
[2016-07-31] MEDS: POTASSIUM CHLORIDE 10 MEQ CONTROLLED RELEASE TAB PO SCH (08:51)
[2016-07-31] MEDS: LEVOFLOXACIN 500 MG TAB PO SCH (08:51)
[2016-07-31] MEDS: RIVAROXABAN 20 MG TAB PO SCH (08:51)
[2016-07-31] MEDS: methylPREDNISolone SOD SUCC 40 MG/1 ML VIAL IV PUSH SCH (08:51)
[2016-07-31] MEDS ORDERED: LEVOFLOXACIN 500 MG TAB PO SCH (09:00)
--- NOTE | 2016-07-31 09:30 | HHI.PR ---
Subjective Interval History Alert oriented Has loses stool Still having cough with yellowish sputum History slight shortness of breath and wheezing No other complaint Review of system for 10 point system otherwise unremarkable Vitals/Results Vital Signs Vital Signs Date Time Temp Pulse Resp B/P Pulse Ox O2 Delivery O2 Flow Rate FiO2 07/31/16 07:41 98.2 62 16 158/74 99 07/31/16 05:23 141/67 07/31/16 04:34 97.7 70 18 179/77 98 07/31/16 00:23 98.0 70 18 148/68 98 07/30/16 20:30 98 Nasal Cannula 3.00 07/30/16 19:34 97.6 91 18 171/79 100 07/30/16 16:50 98.2 91 18 144/71 100 07/30/16 12:03 98.0 60 18 122/58 100 07/30/16 09:25 95 Nasal Cannula 3.00 CBC/BMP: 07/28/16 1130 07/28/16 1130 Physical Exam General General Appearance: Well Developed, Well Nourished, Comfortable Eyes Eye Exam: Sclera White, Extraocular Movement Intact Throat Throat Exam: Oral Mucosa Touchet & Moist Neck Neck Exam: Neck Supple, Trachea Midline Pulmonary Resp Exam: No Distress, Sputum Resp Remarks Bronchial breathing right base and right mid zone. Good air entry other zones. With occasional expiratory wheeze. No rhonchi noted Cardiology CV Remarks S1-S2 audible unable to hear S3 gallop Gastrointestinal/Abdomen GI Exam: Soft, Non-Tender, Bowel Sounds Present, Positive Bowel Movement Integumentary Skin Exam: Warm, Normal Turgor Neurologic Neuro Exam: Alert, Awake, Oriented, Moving All Extremities Assessment/Plan Assessment/Plan (1) COPD exacerbation (2) Atrial fibrillation (3) CAD (coronary artery disease) (4) Small cell lung cancer (5) History of PA (myocardial infarction) (6) Anxiety (7) Depression (8) Renal mass Plan 70-year-old female with history of COPD, oxygen dependent, lung cancer, recent admission for right lung opacification, underwent bronchial biopsy with findings of chronic fibrosis, benign findings. Patient presented to the emergency room with complaints of generalized weakness, increased shortness of breath. Likely COPD exacerbation Continue with scheduled DuoNeb's and when necessary Continue with oxygen to keep sats greater than 90% Consult pulmonology for evaluation-evaluated per Dr. Preciado, d/w him. No further work up requires. Continue duonebs, cleared for discharge. Imaging studies reviewed, findings similar to admission. Doubtful the patient will need further workup. She underwent bronc and biopsy, benign findings. -stable, no distress. History A. fib on chronic anticoagulation, stable Continue with home medications History of lung cancer, stable Continue to monitor Renal mass, stable -Monitor, f/u urology as OP Anxiety and depression, stable -continue with home meds -d/w RN, instructed not to give pain meds with benzos. Pt. overly sedated today Loses stool/diarrhea. Plan for C. difficile DVT prophylaxis, continue with Xarelto Pepcid for GI prophylaxis Case management consultation for discharge planning, resume home health care will wait for C. difficile results to come back stable, no resp. distress Plan to discharge later today home with home health care F/U Dr. Preciado 2 weeks Diet-heart healthy Activity-as tolerated D/W RN D/W pt. Alistair Caputo MD Jul 31, 2016 09:30
[2016-07-31] MEDS ORDERED: LEVA500T PO (09:34)
--- NOTE | 2016-07-31 09:38 | HHI.DS ---
Discharge Summary Admission Date Jul 30, 2016 at 11:27 Admitting Diagnosis SOB, COPD Exacerbation, right lung opacification (1) COPD exacerbation Diagnosis: Principal (2) Atrial fibrillation Diagnosis: Principal (3) CAD (coronary artery disease) Diagnosis: Principal (4) Small cell lung cancer Diagnosis: Principal (5) History of IL (myocardial infarction) Diagnosis: Principal (6) Anxiety Diagnosis: Principal (7) Depression Diagnosis: Principal (8) Renal mass Diagnosis: Principal Brief History This is a pleasant 70-year-old female with significant past medical history of COPD oxygen dependent, CAD status post IL 2, dementia, 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 fib, depression, anxiety, hypertension. Patient had recent hospitalization for COPD, shortness of breath , was found with right lung opacification and collapse. Underwent bronchoscopy and lung biopsy per Dr. Umana, findings were benign. It was thought that changes were secondary to chronic fibrosis. She was discharge in stable condition. Patient was brought back to the emergency room for evaluation for generalized weakness. During emergency room evaluation, patient was not able to provide any information. Emergency room physician contacted primary care physician and apparently patient had been coughing and has had increased shortness of breath. Patient is on oxygen at 2 L and was increased to 3 L. Patient was evaluated in the emergency room, laboratory workup was essentially unremarkable. BNP was 128. Patient was hemodynamically stable. Sats were 98 % on 3 L, blood pressure 136/60, respiratory rate 20, heart rate 85, temperature 98.2. CTA of the chest was completed showing complete opacification of right hemithorax which is predominantly related to chronic alveolar consolation of the right lung as well as marked elevation of the right hemidiaphragm. No significant pleural effusion. Truncation of the right main pulmonary artery with minimal irregularity involving the anterior wall of the main pulmonary artery and the right suggestive of minimal chronic pulmonary emboli. Left lung is clear. No evidence of left pulmonary emboli. Minimal subpleural blebs within the left upper lung field medially. 2 cm left renal mass is unchanged. This changes appear similar to previous CT findings. Emergency room physician spoke to patient's PCP, they spoke to Z[facility] from [facility] and she requested that the patient be admitted and be seen by pulmonary for possible bronchoscopy. Patient was evaluated and followed to the COPD exacerbation. Patient will put on appropriate medication. Patient was seen and followed by family nurse practitioner. As the family nurse practitioner no need for any intervention. He started her on antibiotic. Patient is clinically better. She has loses stool. For C. difficile. If C. difficile is negative plan to discharge her home on by mouth antibiotic to be followed by primary care doctor and pulmonology as outpatient. Discussed with patient in detail. She understood. CBC/BMP: 07/28/16 1130 07/28/16 1130 Significant Findings Laboratory Tests Test 07/28/16 11:30 Red Blood Count 3.53 MIL/MM3 (4.00-5.30) Hemoglobin 10.3 GM/DL (11.6-15.3) Hematocrit 31.3 % (35.0-46.0) Neutrophils (%) (Auto) 74.6 % (16.0-70.0) Monocytes (%) (Auto) 9.0 % (0.0-8.0) Lymphocytes # (Auto) 0.6 TH/MM3 (1.0-4.8) Prothrombin Time 12.3 SEC (9.8-11.6) Activated Partial 31.9 SEC Thromboplast Time (24.3-30.1) Carbon Dioxide Level 33.7 MEQ/L (21.0-32.0) Anion Gap 4 MEQ/L (5-15) Estimat Glomerular Filtration 61 ML/MIN (>89) Rate Aspartate Amino Transf 9 U/L (15-37) (AST/SGOT) B-Type Natriuretic Peptide 128 PG/ML (0-100) Pt Condition on Discharge: Good Discharge Instructions DIET: Follow Instructions for: Heart Healthy Diet Activities you can perform: Weight Bearing as Sherri Follow up Referrals: PCP Follow-up - 1 Week Pulmonology - 2 Weeks New Medications: Levofloxacin (Levaquin) 500 Mg Tab 500 MG PO DAILY Infection #5 Ref 0 TAB Continued Medications: Alprazolam (Xanax) 0.5 Mg Tab 0.5 MG PO Q8H PRN anxiety #30 TAB Zdbkhlnj-Xhjqcvgbu-Nrwlgveukwm Liq (Mylanta Liq) 200-200-20 Mg/5 Ml Susp 30 ML PO Q8HR Take between meals or as directed. Shake well. Maximum 120 ml/24 hrs. Reflux Ref 0 ML Citalopram (Celexa) 20 Mg Tab 40 MG PO DAILY depression, bipolar #30 TAB Hydrocodone-Acetaminophen (Hydrocodone-Acetaminophen) 5-325 mg Tab 1 TAB PO Q4H PRN PAIN SCALE 6 TO 10 #20 TAB Ipratropium [place] (Ipratropium [place]) 1 Pow Pow 0.5 MG NEB TID Levothyroxine (Levothyroxine) 50 Mcg Tab 50 MCG PO DAILY Thyroid #30 Ref 0 TAB Metoprolol Tartrate (Metoprolol Tartrate) 25 Mg Tab 25 MG PO Q12HR hypertension #60 TAB Pancrelipase (Creon) 24,000-76,000-120,000 Units Cap 1 CAP PO TID abdominal pain #90 CAP Potassium Chloride ER (Potassium Chloride ER) 10 Meq Cap 10 MEQ PO DAILY Electrolyte Replacement #30 Ref 0 CAP Quetiapine (Quetiapine) 25 Mg Tab 25 MG PO BID bipolar #30 TAB Ranitidine (Zantac 150 Maximum Strength) 150 Mg Tab 150 MG PO BID TAB Rivaroxaban (Xarelto) 15 Mg Tab 20 MG PO DAILY atrial fibrillation #60 TAB Alistair Caputo MD Jul 31, 2016 09:38
[2016-07-31] MEDS: RESP: IPRATROPIUM 0.5 MG/2.5 ML NEB NEB SCH (10:23)
[2016-07-31 15:12] LABS: C. DIFF EPI 027 PRESUMPTIVE NEGATIVE (NEGATIVE); C. DIFF TOXIN PCR NEGATIVE (NEGATIVE)
[2016-07-31] MEDS ORDERED: LOPERAMIDE HCL 2 MG CAP PO PRN (15:45)
[2016-07-31] MEDS ORDERED: HYDR-3516 PO (15:52)
[2016-07-31] MEDS ORDERED: ALPR.5 PO (15:52)
[2016-07-31] MEDS ORDERED: PANTOPRAZOLE SOD 40 MG DELAYED RELEASE TAB PO ONE (16:00)
[2016-07-31] MEDS ORDERED: ALUMINUM/MAGNESIUM/SIMETH 30 ML CUP PO ONE (16:00)
[2016-07-31] MEDS ORDERED: ALUMINUM/MAGNESIUM/SIMETH 30 ML CUP PO PRN (16:00)
== END 2016-07-31 19:41 | disposition home health service (06) | DRG 191 ==
LOC: NEPC 12:28 → NEDA 17:49 → NEDH 22:03 → NEPFCDU 07-29 00:34 → OBSVTOIN 07-30 11:27
PROVIDERS: ADMIT Specialist; ATTEND Specialist
DX: J44.1 Chronic obstructive pulmonary disease with (acute) exacerbation (principal); I27.82 Chronic pulmonary embolism; F03.90 Unspecified dementia, unspecified severity, without behavioral disturbance, psychotic disturbance, mood disturbance, and anxiety; J98.11 Atelectasis; Z99.81 Dependence on supplemental oxygen; I25.10 Atherosclerotic heart disease of native coronary artery without angina pectoris; F41.9 Anxiety disorder, unspecified; F32.9 Major depressive disorder, single episode, unspecified; N28.89 Other specified disorders of kidney and ureter; I48.2 Chronic atrial fibrillation; I10 Essential (primary) hypertension; E03.9 Hypothyroidism, unspecified; M19.90 Unspecified osteoarthritis, unspecified site; H91.90 Unspecified hearing loss, unspecified ear; M79.7 Fibromyalgia; K21.9 Gastro-esophageal reflux disease without esophagitis; J84.10 Pulmonary fibrosis, unspecified; R19.7 Diarrhea, unspecified; I25.2 Old myocardial infarction; Z79.01 Long term (current) use of anticoagulants; Z85.118 Personal history of other malignant neoplasm of bronchus and lung; Z92.21 Personal history of antineoplastic chemotherapy; Z92.3 Personal history of irradiation
CPT/HCPCS: 71010; 71275; 80053; 82550; 83690; 83735; 83880; 84484; 85025; 85610; 85730; 87493; 93005; 94640; 94664; G0378; G8987-GP; G8988-GP; J2920; J7613; J7644; Q9967

== ENCOUNTER 2016-09-02 20:53 | Observation (INO) | payer MEDICARE, MEDICAID ==
[~2016-09-02] VITALS: Ht 160 cm; Wt 80.0 kg
[~2016-09-02 20:53] MED LIST changes: +LEVA500T PO
[2016-09-02 21:11] VITALS: BP 227/94; PULSE 102; RESP 16; TEMP 98.4; O2SAT 94
[2016-09-02] MEDS ORDERED: METO25TA3 PO (21:21)
--- NOTE | 2016-09-02 21:26 | PD ---
HPI Chief Complaint: Respiratory Distress Time Seen by Provider: 21:17 Travel History International Travel<30 days: No Contact w/Intl Traveler<30days: No Traveled to known affect area: No History of Present Illness HPI 70yo F with PMH of COPD on home O2 2.5 liters, CAD s/p OR x2, afib on xarelto, small cell lung CA presents to the ED with c/o sob for 4-5 days. SOB is worst with walking. +Tactile fever at home. Pt also with left sided chest pain today. States pain is constant, hard to describe and points to across her chest. Denies any n/v, abdominal pain. +Diarrhea. Pt was recently admitted in July 2016 for copd exacerbation and found to have right lung opacification. PFSH Past Medical History Hx Anticoagulant Therapy: Yes (XARELTO) Arthritis: Yes (HANDS) Asthma: No Atrial Fibrillation: Yes Autoimmune Disease: No Blood Disorders: No Anxiety: Yes Depression: Yes Heart Rhythm Problems: Yes Cancer: Yes (HX LUNG CA) Cardiac Catheterization: Yes Cardiovascular Problems: Yes (HBP) High Cholesterol: No Chemotherapy: Yes (HX) Chest Pain: Yes Congestive Heart Failure: Yes COPD: Yes Cerebrovascular Accident: No Coronary Artery Disease: Yes Diabetes: No Diminished Hearing: Yes Endocrine: No Fibromyalgia: Yes Gastrointestinal Disorders: Yes GERD: Yes Glaucoma: No Genitourinary: No Headaches: Yes Hepatitis: No Hiatal Hernia: No Hypertension: Yes Immune Disorder: No Implanted Vascular Access Dvce: No Kidney Stones: No Medical other: Yes (ARTHRITIS,DIZZINESS) Musculoskeletal: No Neurologic: No Psychiatric: Yes Reproductive: No Respiratory: Yes (COPD) Immunizations Current: Yes Migraines: No Myocardial Infarction: Yes (X2) Pneumonia: Yes Radiation Therapy: Yes Renal Failure: No Seizures: No Sickle Cell Disease: No Sleep Apnea: No Thyroid Disease: Yes Ulcer: No Menopausal: Yes : 1 Para: 1 Miscarriage: 0 : 0 Past Surgical History Abdominal Surgery: Yes AICD: No Arteriovenous Shunt: No Body Medical Devices: Neck stent Cardiac Surgery: No Section: No Cholecystectomy: Yes Ear Surgery: No Endocrine Surgery: No Eye Surgery: No Genitourinary Surgery: No Gynecologic Surgery: No Insulin Pump: No Joint Replacement: No Neurologic Surgery: No Oral Surgery: No Pacemaker: No Thoracic Surgery: No Other Surgery: Yes (POLYPS REMOVED FROM LARYNX; ENDOSCOPY) Social History Alcohol Use: No Tobacco Use: No (quit 1985) Substance Use: No Allergies-Medications (Allergen,Severity, Reaction): Coded Allergies: Adhesives (Verified Allergy, Severe, RASK, 07/29/16) skin breakdown Calcium Channel Blockers (Verified Allergy, Severe, DIFFICULTY BREATHING, 07/29/16) Entex [place] (Verified Allergy, Severe, Anaphylaxis, 07/29/16) Marcaine (Verified Allergy, Severe, DIFFICULTY BREATHING, 07/29/16) Minocin (Verified Allergy, Severe, DIFFICULTY BREATHING, 07/29/16) Nonsteroidal Anti-Inflammatory Agts (Verified Allergy, Severe, DIFFICULTY BREATHING, 07/29/16) PEANUTS (Verified Allergy, Severe, lips swelling, 07/29/16) Penicillin (Verified Allergy, Severe, DIFFICULTY BREATHING, 07/29/16) Prilosec (Verified Allergy, Severe, DIFFICULTY BREATHING, 07/29/16) Promethazine (Verified Allergy, Severe, DIFFICULTY BREATHING, 07/29/16) Sulfa (Verified Allergy, Severe, DIFFICULTY BREATHING, 07/29/16) Prednisone (Verified Allergy, Intermediate, rash and lips swell, 07/29/16) Zyrtec (Verified Allergy, Intermediate, rash, 07/29/16) Zyprexa (Verified Adverse Reaction, Severe, Severe vomiting., 07/29/16) Fluticasone (Verified Adverse Reaction, Intermediate, Rawness of the skin around the nose. Inhaled steroids do , 07/29/16) the same to her mouth. Omeprazole (Verified Adverse Reaction, Intermediate, [place] funny, 07/29/16) Zithromax (Verified Adverse Reaction, Intermediate, Says it made her jittery and it was harder to breathe. , 07/29/16) *MDRO Multi-Drug Resistant Organism (Unverified Adverse Reaction, Unknown , ESBL, 07/29/16) ESBL E. coli (urine) - 01/2014 Uncoded Allergies: Racemic Epinephrine Inhaled (Allergy, Intermediate, Flushing, Mouth Tingling , 08/26/12) Same reaction w/o lips swelling as with inhaled albuterol. Not sure would get same reaction to Injectable. Lian Huber MD. Jermaineonapen (Adverse Reaction, Severe, Caused amnesia and a fall. , 07/10/13) Reported Meds & Prescriptions Reported Meds & Active Scripts Active Hydrocodone-Acetaminophen 5-325 mg Tab 1 Tab PO Q4H PRN Xanax (Alprazolam) 0.5 Mg Tab 0.5 Mg PO Q8H PRN Xarelto (Rivaroxaban) 15 Mg Tab 20 Mg PO DAILY Quetiapine (Quetiapine Fumarate) 25 Mg Tab 25 Mg PO BID Creon (Amylase/Lipase/Protease) 24,000-76,000-120,000 Units Cap 1 Cap PO TID Celexa (Citalopram Hydrobromide) 20 Mg Tab 40 Mg PO DAILY Reported Metoprolol Tartrate 25 Mg Tab 25 Mg PO TID Ipratropium [place] 1 Pow Pow 0.5 Mg NEB TID Levothyroxine (Levothyroxine Sodium) 50 Mcg Tab 50 Mcg PO DAILY Zantac 150 Maximum Strength (Ranitidine HCl) 150 Mg Tab 150 Mg PO BID Mylanta Liq (Gselbtuy-Lrizuytoj-Bepbbgtnkrr Liq) 200-200-20 Mg/5 Ml Susp 30 Ml PO Q8HR Take between meals or as directed. Shake well. Maximum 120 ml/24 hrs. Potassium Chloride ER (Potassium Chloride) 10 Meq Cap 10 Meq PO DAILY Review of Systems Except as stated in HPI: all other systems reviewed are Neg Physical Exam Narrative GENERAL: 70yo F not in distress. SKIN: Warm and dry. HEAD: Atraumatic. Normocephalic. EYES: Pupils equal and round. No scleral icterus. No injection or drainage. ENT: No nasal bleeding or discharge. Mucous membranes pink and moist. NECK: Trachea midline. No JVD. CARDIOVASCULAR: Regular rate and rhythm. No murmur appreciated. RESPIRATORY: No accessory muscle use. Clear to auscultation. Breath sounds equal bilaterally. Speaking in complete sentences. Saturating at 88% on RA but up to 93-94% on 2.5 liters NC. GASTROINTESTINAL: Abdomen soft, non-tender, nondistended. No rebound tenderness or guarding. MUSCULOSKELETAL: No obvious deformities. No clubbing. No cyanosis. +Bilateral lower ext edema. NEUROLOGICAL: Awake and alert. No obvious cranial nerve deficits. Motor grossly within normal limits. Normal speech. PSYCHIATRIC: Appropriate mood and affect; insight and judgment normal. Data Data Last Documented VS Vital Signs Date Time Temp Pulse Resp B/P Pulse Ox O2 Delivery O2 Flow Rate FiO2 09/02/16 21:14 82 20 88 Nasal Cannula 2 09/02/16 21:11 98.4 227/94 Orders Complete Blood Count With Diff (09/02/16 21:20) Basic Metabolic Panel (Bmp) (09/02/16 21:20) B-Type Natriuretic Peptide (09/02/16 21:20) Act Partial Throm Time (Ptt) (09/02/16 21:20) Prothrombin Time / Inr (Pt) (09/02/16 21:20) Ckmb (Isoenzyme) Profile (09/02/16 21:20) Troponin I (09/02/16 21:20) Arterial Blood Gas (Abg) (09/02/16 21:20) Blood Culture (09/02/16 21:20) Iv Access Insert/Monitor (09/02/16 21:20) Electrocardiogram (09/02/16 21:20) Ecg Monitoring (09/02/16 21:20) Oximetry (09/02/16 21:20) Oxygen Administration (09/02/16 21:20) Chest, Single Ap (09/02/16 21:20) Sodium Chloride 0.9% Flush (Ns Flush) (09/02/16 21:30) Lactic Acid Sepsis Protocol (09/02/16 21:20) Methylprednisolone So Succ Inj (Solumedr (09/02/16 22:30) Albuterol-Ipratropium Neb (Duoneb Neb) (09/02/16 22:30) Admit Order (Ed Use Only) (09/02/16 23:33) Activity Bed Rest With Brp (09/02/16 23:33) Vital Signs (Adult) Q4H (09/02/16 23:33) Cardiac Rhythm .As Directed (09/02/16 23:33) ^ Notify Dr: Other .PRN (09/02/16 23:33) ^ Notify Dr. Parameters (09/02/16 23:33) Resp Oxygen Nasal Cannula (09/02/16 ) Ckmb (Isoenzyme) Profile (09/02/16 23:33) Ckmb (Isoenzyme) Profile (09/03/16 02:33) Troponin I (09/02/16 23:33) Troponin I (09/03/16 02:33) Electrocardiogram (09/02/16 23:33) Electrocardiogram (09/03/16 02:33) ^ Obtain (09/02/16 23:33) Sodium Chloride 0.9% Flush (Ns Flush) (09/02/16 23:45) Sodium Chloride 0.9% Flush (Ns Flush) (09/03/16 09:00) Combat Systems Officer / Telemetry KERWIN.[email or web address] (09/02/16 23:33) Labs Laboratory Tests Test 09/02/16 09/02/16 09/02/16 21:45 22:15 22:40 Blood Gas Puncture Site RT BRACHIAL Blood Gas Patient Temperature 98.6 Blood Gas HCO3 26 mmol/L Blood Gas Base Excess 1.7 mmol/L Blood Gas Oxygen Saturation 93 % Arterial Blood pH 7.41 Arterial Blood Partial 42 mmHg Pressure CO2 Arterial Blood Partial 77 mmHG Pressure O2 Arterial Blood Oxygen Content 12.7 Vol % Arterial Blood 2.3 % Carboxyhemoglobin Arterial Blood Methemoglobin 1.7 % Blood Gas Hemoglobin 9.7 G/DL Oxygen Delivery Device NASAL CANNULA Blood Gas Liter Flow 2 L/M White Blood Count 3.8 TH/MM3 Red Blood Count 3.46 MIL/MM3 Hemoglobin 10.7 GM/DL Hematocrit 31.2 % Mean Corpuscular Volume 90.1 FL Mean Corpuscular Hemoglobin 30.9 PG Mean Corpuscular Hemoglobin 34.3 % Concent Red Cell Distribution Width 15.6 % Platelet Count 127 TH/MM3 Mean Platelet Volume 7.8 FL Neutrophils (%) (Auto) 62.8 % Lymphocytes (%) (Auto) 18.4 % Monocytes (%) (Auto) 11.7 % Eosinophils (%) (Auto) 6.3 % Basophils (%) (Auto) 0.8 % Neutrophils # (Auto) 2.4 TH/MM3 Lymphocytes # (Auto) 0.7 TH/MM3 Monocytes # (Auto) 0.4 TH/MM3 Eosinophils # (Auto) 0.2 TH/MM3 Basophils # (Auto) 0.0 TH/MM3 CBC Comment DIFF FINAL Differential Comment B-Type Natriuretic Peptide 151 PG/ML Prothrombin Time 12.2 SEC Prothromb Time International 1.1 RATIO Ratio Activated Partial 33.0 SEC Thromboplast Time Sodium Level 139 MEQ/L Potassium Level 3.6 MEQ/L Chloride Level 103 MEQ/L Carbon Dioxide Level 28.8 MEQ/L Anion Gap 7 MEQ/L Blood Urea Nitrogen 5 MG/DL Creatinine 0.92 MG/DL Estimat Glomerular Filtration 61 ML/MIN Rate Random Glucose 107 MG/DL Lactic Acid Level 0.7 mmol/L Calcium Level 9.1 MG/DL Total Creatine Kinase 66 U/L Troponin I 0.04 NG/ML MDM Medical Decision Making Medical Screen Exam Complete: Yes Emergency Medical Condition: Yes Interpretation(s) EKG: Afib at 91bpm. RAD. No ST segment elevation or depression. Differential Diagnosis Pneumonia vs. Pleural effusion vs. COPD exacerbation vs. PE vs. ACS Narrative Course 70yo F with sob and atypical chest pain. Pt is not wheezing on exam but has COPD so will give duonebs x3 to see if she improves. Pt states she is allergic to steroids. Pt is speaking in complete sentences and saturating well at 94-95% on 2.5L NC. Pt does have significant cardiac risk factors. ABG showed O2 sat 93% on 2L NC. CXR showed stable appearance of right chest with near total opacification on right side. Labs reviewed, no leukocytosis. Troponin 0.04. BNP 151. Lactic acid 0.7. Pt had CT angio Jul 2016 when she was admitted and does not want any more CT scans because she has had so many. Clinically low suspicion for PE since pt is at baseline oxygenation and saturating well on her normal 2.5 liter. Pt is also on xarelto for afib. However, pt has not seen a sanitarian inspector in a long time and has not had chest pain work up in a long time. Will admit for serial EKG and cardiac enzyme for chest pain. Diagnosis Primary Impression: Chest pain Qualified Code: R07.9 - Chest pain, unspecified type Admitting Information Admitting Physician Requests: Tejal Patterson DO Sep 02, 2016 21:26
[2016-09-02] MEDS ORDERED: SODIUM CHLORIDE 0.9% FLUSH 5 ML FLUSH IVF PRN ×2 (21:30→23:45)
--- NOTE | 2016-09-02 21:41 | RADRPT ---
EXAM DATE/TIME: 09/02/2016 21:19 [facility] COMPARISON: CHEST SINGLE AP, July 28, 2016, 13:04. INDICATIONS : Short of breath MEDICAL HISTORY : Carcinoma, lung. SURGICAL HISTORY : Right lung surgery ENCOUNTER: Initial ACUITY: 1 day PAIN SCORE: 0/10 LOCATION: Bilateral chest FINDINGS: There continues to be near total opacification of the right hemithorax. There is a sma ll amount of air seen in the upper right lung. There appears to be metallic density in this region. This may be related to a stent. There is some mild prominence in the interstitium and indistinctness of the pulmonary vessels on the left side. A focal left sided consolidation is not seen. A left effus ion is not seen. CONCLUSION: 1. Stable appearance of the right chest with near total opacification on the right side. 2. Prominence in the interstitium and indistinctness of the pulmonary vasculature likely representing some degree of pulmonary edema seen on the left side. Hasmukh Marley MD on September 02, 2016 at 21:36 Board Certified Radiologist. This report was verified electronically.
[2016-09-02 21:58] LABS: BLOOD GAS BASE EXCESS 1.7 mmol/L (-2-2); BLOOD GAS CARBOXYHEMOGLOBIN 2.3 % (0-4); BLOOD GAS HCO3 26 mmol/L (22-26); BLOOD GAS METHEMOGLOBIN 1.7 % (0-2); BLOOD GAS O2 HGB SATURATION 93 % (90-100); BLOOD GAS OXYGEN CONTENT 12.7 Vol % (12.0-20.0); BLOOD GAS PCO2 42 mmHg (38-42); BLOOD GAS PO2 77 mmHG (61-120); BLOOD GAS TOTAL HGB 9.7 G/DL (12.0-16.0); TEMP CORR TO 98.6
[2016-09-02 21:59] LABS: CRITICAL VALUE NO; DRAW SITE RT BRACHIAL; LITER FLOW 2 L/M; NUMBER OF ARTERIAL PUNCTURES 1; OXYGEN DEVICE NASAL CANNULA; STAT YES; ULNAR PULSE PRESENT
[2016-09-02] MEDS ORDERED: methylPREDNISolone SOD SUCC 125 MG/2 ML VIAL IVP ONE (22:30)
[2016-09-02 22:38] LABS: AUTOMATED NEUTROPHIL # 2.4 TH/MM3 (1.8-7.7); BASOPHIL % 0.8 % (0.0-2.0); EOSINOPHIL # 0.2 TH/MM3 (0-0.4); EOSINOPHIL % 6.3 % (0.0-4.0); HEMATOCRIT 31.2 % (35.0-46.0); HEMO FLAGS DIFF FINAL; LYMPH % 18.4 % (9.0-44.0); LYMPHOCYTE # 0.7 TH/MM3 (1.0-4.8); MEAN CELL VOLUME 90.1 FL (80.0-100.0); MEAN CORPUSCULAR HEMOGLOBIN 30.9 PG (27.0-34.0); MEAN CORPUSCULAR HGB CONC 34.3 % (32.0-36.0); MONO % 11.7 % (0.0-8.0); NEUT % 62.8 % (16.0-70.0); PLATELET COUNT 127 TH/MM3 (150-450); RED BLOOD COUNT 3.46 MIL/MM3 (4.00-5.30); RED CELL DISTRIBUTION WIDTH 15.6 % (11.6-17.2); WHITE BLOOD COUNT 3.8 TH/MM3 (4.0-11.0)
[2016-09-02] MEDS: RESP: ALBUTEROL 2.5 MG/IPRATROPIUM 0.5 MG NEB (SCH) INH (22:41)
[2016-09-02 23:20] LABS: INTERNATIONAL NORMALIZED RATIO 1.1 RATIO; PROTHROMBIN TIME - PATIENT 12.2 SEC (9.8-11.6)
[2016-09-02 23:27] LABS: BICARBONATE 28.8 MEQ/L (21.0-32.0); POTASSIUM 3.6 MEQ/L (3.5-5.1)
[2016-09-03] VITALS: BP 155/73; PULSE 101; RESP 26; TEMP 98.7; O2SAT 94
[2016-09-03 03:00] VITALS: BP 163/75; PULSE 101
[2016-09-03] MEDS ORDERED: RESP: ALBUTEROL 2.5 MG/IPRATROPIUM 0.5 MG NEB (PRN) NEB (03:00)
[2016-09-03 04:00] VITALS: BP 163/75; PULSE 101; RESP 24; O2SAT 96
[2016-09-03 08:00] VITALS: BP 154/72; PULSE 94; RESP 20; O2SAT 98
[2016-09-03] MEDS ORDERED: SODIUM CHLORIDE 0.9% FLUSH 5 ML FLUSH IVF SCH (09:00)
[2016-09-03] MEDS ORDERED: ALPRAZolam 0.5 MG TAB PO PRN (09:30)
[2016-09-03] MEDS ORDERED: METOPROLOL TARTRATE 25 MG TAB PO ONE (09:30)
[2016-09-03] MEDS ORDERED: ACETAMINOPHEN/HYDROcodone 325 MG/5 MG TAB PO PRN (09:30)
--- NOTE | 2016-09-03 10:54 | HHI.HP ---
[facility] Primary Care Physician Francisco Ford MD Chief Complaint Shortness of breath and chest pain History of Present Illness This is a 70-year-old female that presents to the ED complaining of shortness of breath and chest pain. Shortness breath is chronic and follows a tobacco feeder catcher for this. She has history of COPD and non-small cell lung cancer diagnosed 4 undergoing radiation therapy and chemotherapy. She also complains of a left-sided chest pain. When asked how long it last she responds "I don't know." She denies having any discomfort at this time. She also has history of Takotsubo having a heart catheterization in 2009 revealing that. She had normal coronary arteries. She also has history of atrial fibrillation/atrial flutter and takes medications for that. Cannot recall if she was nauseous or diaphoretic last evening. Review of Systems General: Patient denies fevers, chills recent, and recent travel HEENT: Patient denies headache, sore throat, difficulty swallowing. Cardiovascular: Has the chest discomfort as mentioned above. Denies sensation of heart beating rapidly or irregularly. No syncope. Respiratory: Patient has been short of breath which is chronic. Denies coughing wheezing or hemoptysis. GI: Patient denies nausea, vomiting, diarrhea, abdominal pain, bloody stools. Musculoskeletal: Patient denies joint pain or edema. Denies calf pain or edema. Neurovascular: Patient denies numbness, tingling, weakness in extremities. Denies headache. Endocrine: Denies polyuria and polydipsia. Hematologic: Denies easy bruising. Skin: Denies rash or itching. Past Family Social History Allergies: Coded Allergies: Adhesives (Verified Allergy, Severe, RASK, 07/29/16) skin breakdown Calcium Channel Blockers (Verified Allergy, Severe, DIFFICULTY BREATHING, 07/29/16) Entex LA (Verified Allergy, Severe, Anaphylaxis, 07/29/16) Marcaine (Verified Allergy, Severe, DIFFICULTY BREATHING, 07/29/16) Minocin (Verified Allergy, Severe, DIFFICULTY BREATHING, 07/29/16) Nonsteroidal Anti-Inflammatory Agts (Verified Allergy, Severe, DIFFICULTY BREATHING, 07/29/16) PEANUTS (Verified Allergy, Severe, lips swelling, 07/29/16) Penicillin (Verified Allergy, Severe, DIFFICULTY BREATHING, 07/29/16) Prilosec (Verified Allergy, Severe, DIFFICULTY BREATHING, 07/29/16) Promethazine (Verified Allergy, Severe, DIFFICULTY BREATHING, 07/29/16) Sulfa (Verified Allergy, Severe, DIFFICULTY BREATHING, 07/29/16) Prednisone (Verified Allergy, Intermediate, rash and lips swell, 07/29/16) Zyrtec (Verified Allergy, Intermediate, rash, 07/29/16) Zyprexa (Verified Adverse Reaction, Severe, Severe vomiting., 07/29/16) Fluticasone (Verified Adverse Reaction, Intermediate, Rawness of the skin around the nose. Inhaled steroids do , 07/29/16) the same to her mouth. Omeprazole (Verified Adverse Reaction, Intermediate, [place] funny, 07/29/16) Zithromax (Verified Adverse Reaction, Intermediate, Says it made her jittery and it was harder to breathe. , 07/29/16) *MDRO Multi-Drug Resistant Organism (Unverified Adverse Reaction, Unknown , ESBL, 07/29/16) ESBL E. coli (urine) - 01/2014 Uncoded Allergies: Racemic Epinephrine Inhaled (Allergy, Intermediate, Flushing, Mouth Tingling , 08/26/12) Same reaction w/o lips swelling as with inhaled albuterol. Not sure would get same reaction to Injectable. Lian Huber MD. Jcaob (Adverse Reaction, Severe, Caused amnesia and a fall. , 07/10/13) Past Medical History COPD, lung cancer, hypertension, atrial fibrillation/atrial flutter, depression , anxiety, hypothyroidism, and Takotsubo. Past Surgical History Cardiac catheterization in 2009 having normal coronary arteries and Takotsubo cardiomyopathy. Reported Medications Reported Meds & Active Scripts Active Hydrocodone-Acetaminophen 5-325 mg Tab 1 Tab PO Q4H PRN Xanax (Alprazolam) 0.5 Mg Tab 0.5 Mg PO Q8H PRN Xarelto (Rivaroxaban) 15 Mg Tab 20 Mg PO DAILY Quetiapine (Quetiapine Fumarate) 25 Mg Tab 25 Mg PO BID Creon (Amylase/Lipase/Protease) 24,000-76,000-120,000 Units Cap 1 Cap PO TID Celexa (Citalopram Hydrobromide) 20 Mg Tab 40 Mg PO DAILY Reported Metoprolol Tartrate 25 Mg Tab 25 Mg PO TID Ipratropium [place] 1 Pow Pow 0.5 Mg NEB TID Levothyroxine (Levothyroxine Sodium) 50 Mcg Tab 50 Mcg PO DAILY Zantac 150 Maximum Strength (Ranitidine HCl) 150 Mg Tab 150 Mg PO BID Mylanta Liq (Ickeloij-Hcbehtjlu-Adqbgueywio Liq) 200-200-20 Mg/5 Ml Susp 30 Ml PO Q8HR Take between meals or as directed. Shake well. Maximum 120 ml/24 hrs. Potassium Chloride ER (Potassium Chloride) 10 Meq Cap 10 Meq PO DAILY Active Ordered Medications Current Medications Medications (Trade) Dose Ordered Sig/Lorie Route Start Time Stop Time Status Last Admin (NS Flush) 2 ml UNSCH PRN IVF 09/02/16 21:30 (NS Flush) 2 ml UNSCH PRN IVF 09/02/16 23:45 (NS Flush) 2 ml BID IVF 09/03/16 09:00 09/03/16 08:56 (Xanax) 0.5 mg Q8H PRN PO 09/03/16 09:30 (CeleXA) 40 mg DAILY PO 09/04/16 09:00 ([place] 5-325 Mg) 1 tab Q4H PRN PO 09/03/16 09:30 (Synthroid) 50 mcg DAILY@06 PO 09/04/16 06:00 (Lopressor) 25 mg TID PO 09/03/16 13:00 (Creon 24-76-120) 1 cap TID PO 09/03/16 13:00 (KCl) 10 meq DAILY PO 09/04/16 09:00 (SEROquel) 25 mg BID PO 09/03/16 21:00 (Pepcid) 20 mg BID PO 09/03/16 21:00 (Xarelto) 20 mg DAILY PO 09/03/16 11:00 Family History Patient cannot recall. Social History Patient states she quit smoking a long time ago. Physical Exam Vital Signs Vital Signs Date Time Temp Pulse Resp B/P Pulse Ox O2 Delivery O2 Flow Rate FiO2 09/03/16 08:00 94 20 154/72 98 Nasal Cannula 4 09/03/16 07:44 Nasal Cannula 98 09/03/16 07:44 98 Nasal Cannula 4 09/03/16 04:00 101 24 163/75 96 4 09/03/16 03:00 101 163/75 09/03/16 00:00 98.7 101 26 155/73 94 4 09/02/16 21:14 82 20 88 Nasal Cannula 2 09/02/16 21:11 98.4 102 16 227/94 94 Physical Exam GENERAL: This is a well-nourished, well-developed patient, in no apparent distress. Patient speaks in clear complete sentences. Patient is pleasant. HEENT: Head is atraumatic and normocephalic. Neck is supple without lymphadenopathy and trachea is midline. No JVD or carotid bruits. CARDIOVASCULAR: Irregularly irregular rate and rhythm without murmurs, gallops, or rubs. Rate was in the high 90s. RESPIRATORY: Clear to auscultation. Breath sounds equal bilaterally. No wheezes , rales, or rhonchi. Chest wall is nontender. No use of accessory muscles. GASTROINTESTINAL: Abdomen is nontender, nondistended. Abdomen soft. No obvious pulsatile mass or bruit. No CVA tenderness. Strong femoral pulses bilaterally. Normal bowel sounds in all quadrants. MUSCULOSKELETAL: Patient is moving upper and lower extremities freely. No calf tenderness or edema, no Homans sign. Strong pulses in upper and lower extremities. NEUROLOGICAL: Patient is alert and oriented. Cranial nerves 2-12 are grossly intact. No focal deficits and speech is clear. SKIN: No rash and turgor is normal. Laboratory Laboratory Tests Test 09/02/16 09/02/16 09/02/16 09/03/16 21:45 22:15 22:40 02:00 Blood Gas Puncture Site RT BRACHIAL Blood Gas Patient Temperature 98.6 Blood Gas HCO3 26 Blood Gas Base Excess 1.7 Blood Gas Oxygen Saturation 93 Arterial Blood pH 7.41 Arterial Blood Partial 42 Pressure CO2 Arterial Blood Partial 77 Pressure O2 Arterial Blood Oxygen Content 12.7 Arterial Blood 2.3 Carboxyhemoglobin Arterial Blood Methemoglobin 1.7 Blood Gas Hemoglobin 9.7 Oxygen Delivery Device NASAL CANNULA Blood Gas Liter Flow 2 White Blood Count 3.8 Red Blood Count 3.46 Hemoglobin 10.7 Hematocrit 31.2 Mean Corpuscular Volume 90.1 Mean Corpuscular Hemoglobin 30.9 Mean Corpuscular Hemoglobin 34.3 Concent Red Cell Distribution Width 15.6 Platelet Count 127 Mean Platelet Volume 7.8 Neutrophils (%) (Auto) 62.8 Lymphocytes (%) (Auto) 18.4 Monocytes (%) (Auto) 11.7 Eosinophils (%) (Auto) 6.3 Basophils (%) (Auto) 0.8 Neutrophils # (Auto) 2.4 Lymphocytes # (Auto) 0.7 Monocytes # (Auto) 0.4 Eosinophils # (Auto) 0.2 Basophils # (Auto) 0.0 CBC Comment DIFF FINAL Differential Comment B-Type Natriuretic Peptide 151 Prothrombin Time 12.2 Prothromb Time International 1.1 Ratio Activated Partial 33.0 Thromboplast Time Sodium Level 139 Potassium Level 3.6 Chloride Level 103 Carbon Dioxide Level 28.8 Anion Gap 7 Blood Urea Nitrogen 5 Creatinine 0.92 Estimat Glomerular Filtration 61 Rate Random Glucose 107 Lactic Acid Level 0.7 Calcium Level 9.1 Total Creatine Kinase 66 59 Troponin I 0.04 0.04 Test 09/03/16 04:42 Total Creatine Kinase 61 Troponin I 0.04 Date/Time Procedure Status Source Growth 09/02/16 22:40 Aerobic Blood Culture Received Blood Peripheral Pending 09/02/16 22:40 Anaerobic Blood Culture Received Blood Peripheral Pending Result Diagram: 09/02/16 2215 09/02/16 2240 Imaging Last 24 hours Impressions Chest X-Ray 09/02/162119 Signed Impressions: Service Date/Time: August 21:19 - CONCLUSION: 1. Stable appearance of the right chest with near total opacification on the right side. 2. Prominence in the interstitium and indistinctness of the pulmonary vasculature likely representing some degree of pulmonary edema seen on the left side. Hasmukh Marley MD Course EKGs have atrial flutter. Assessment and Plan Assessment and Plan * Atypical chest pain: Patient had serial cardiac enzymes and EKGs for ruling out purposes. She was seen by Dr. Krishna Poon of cardiology and the chest pain center. There will be no further cardiac workup. Patient will be discharged home with instructions to follow-up with her physicians. * COPD: Continue her medications. * A flutter: Continue current medications. Bj Turner Sep 03, 2016 10:54
[2016-09-03] MEDS ORDERED: RIVAROXABAN 20 MG TAB PO SCH (11:00)
[2016-09-03 11:02] VITALS: BP 148/66
[2016-09-03] MEDS ORDERED: METOPROLOL TARTRATE 25 MG TAB PO SCH (13:00)
[2016-09-03] MEDS ORDERED: LIPASE/PROTEASE/AMYLASE (24,000/76,000/120,000) CAP PO SCH (13:00)
--- NOTE | 2016-09-03 14:40 | EKG ---
Date Performed: 09/03/2016 Time Performed: 02:03:30 PTAGE: 70 years EKG: NORMAL Sinus rhythm WITH FIRST DEGREE AV BLOCK MODERATE ST DEPRESSION ABNORMAL ECG PREVIOUS TRACING : 09/02/2016 22.07 Since previous tracing, no significant change noted DOCTOR: Krishna Poon Interpretating Date/Time 09/03/2016 14:39:43
--- NOTE | 2016-09-03 16:49 | EKG ---
Date Performed: 09/02/2016 Time Performed: 22:07:07 PTAGE: 70 years EKG: ATRIAL FLUTTER/TACHYCARDIA BORDERLINE RIGHT AXIS DEVIATION ABNORMAL RHYTHM ECG PREVIOUS TRACING : 07/28/2016 13.20 Since previous tracing, no significant change noted DOCTOR: Krishna Poon Interpretating Date/Time 09/03/2016 16:47:44
[2016-09-03] MEDS ORDERED: QUEtiapine FUMARATE 25 MG TAB PO SCH (21:00)
[2016-09-03] MEDS ORDERED: FAMOTIDINE 20 MG TAB PO SCH (21:00)
[2016-09-04] MEDS ORDERED: LEVOTHYROXINE SODIUM 50 MCG TAB PO SCH (06:00)
[2016-09-04] MEDS ORDERED: CITALOPRAM HYDROBROMIDE 20 MG TAB PO SCH (09:00)
[2016-09-04] MEDS ORDERED: POTASSIUM CHLORIDE 10 MEQ CAP PO SCH (09:00)
[2016-09-04 20:00] VITALS: O2SAT 95
== END 2016-09-03 11:02 | disposition home or self-care (01) ==
LOC: NEPC 20:53 → NEDA 23:34 → NEDH 09-03 03:34 → UNDODEPER 09-07 00:34
PROVIDERS: ADMIT Internal Medicine Cardiovascular Disease; ATTEND Internal Medicine Cardiovascular Disease
DX: R07.89 Other chest pain (principal); J44.9 Chronic obstructive pulmonary disease, unspecified; I48.91 Unspecified atrial fibrillation; I48.92 Unspecified atrial flutter; C34.90 Malignant neoplasm of unspecified part of unspecified bronchus or lung; I51.81 Takotsubo syndrome
CPT/HCPCS: 36600; 71010; 80048; 82550; 82805; 83605; 83880; 84484; 85025; 85610; 85730; 87040; 93005; 94640; 94664; 99285; G0378

== ENCOUNTER 2016-10-13 00:34 | Observation (INO) | payer MEDICARE, MEDICAID ==
[2016-10-13] VITALS (11 sets, daily range): BP systolic 135–182; BP diastolic 64–106; PULSE 66–99; RESP 14–26; TEMP 97.6–98.7; O2SAT 91–100
[~2016-10-13] VITALS: Ht 160 cm; Wt 81.7 kg
[~2016-10-13 00:34] MED LIST changes: -LEVA500T PO
[2016-10-13] MEDS ORDERED: SODIUM CHLORIDE 0.9% FLUSH 10 ML FLUSH IVF PRN (01:15)
[2016-10-13 01:30] LABS: BASOPHIL # 0.1 TH/MM3 (0-0.2); EOSINOPHIL # 0.1 TH/MM3 (0-0.4); EOSINOPHIL % 2.4 % (0.0-4.0); HEMATOCRIT 30.5 % (35.0-46.0); HEMO FLAGS DIFF FINAL; LYMPH % 23.4 % (9.0-44.0); LYMPHOCYTE # 1.4 TH/MM3 (1.0-4.8); MEAN CELL VOLUME 89.1 FL (80.0-100.0); MEAN CORPUSCULAR HEMOGLOBIN 29.8 PG (27.0-34.0); MEAN CORPUSCULAR HGB CONC 33.4 % (32.0-36.0); MONO % 6.8 % (0.0-8.0); NEUT % 66.4 % (16.0-70.0); PLATELET COUNT 146 TH/MM3 (150-450); RED BLOOD COUNT 3.42 MIL/MM3 (4.00-5.30); RED CELL DISTRIBUTION WIDTH 14.7 % (11.6-17.2)
[2016-10-13 01:36] LABS: ANION GAP 7 MEQ/L (5-15); APTT (PATIENT) 31.9 SEC (24.3-30.1); AST (GOT) 18 U/L (15-37); BICARBONATE 26.8 MEQ/L (21.0-32.0); BLOOD UREA NITROGEN 12 MG/DL (7-18); CHLORIDE 97 MEQ/L (98-107); GLOMERULAR FILTRATION RATE 69 ML/MIN (>89); INTERNATIONAL NORMALIZED RATIO 1.1 RATIO; POTASSIUM 4.1 MEQ/L (3.5-5.1); PROTHROMBIN TIME - PATIENT 12.1 SEC (9.8-11.6); SODIUM (NA) 131 MEQ/L (136-145)
[2016-10-13 01:44] LABS: ALKALINE PHOSPHATASE 59 U/L (45-117); ALT (GPT) 19 U/L (10-53); TOTAL BILIRUBIN ADULT 0.5 MG/DL (0.2-1.0)
--- NOTE | 2016-10-13 02:08 | RADRPT ---
EXAM DATE/TIME: 10/13/2016 01:48 [facility] COMPARISON: CHEST SINGLE AP, June 29, 2016, 4:29. CHEST SINGLE AP, September 02, 2016, 21:19. CT PULMONARY A NGIOGRAM, July 28, 2016, 15:07. INDICATIONS : Shortness of breath. MEDICAL HISTORY : Carcinoma, lung SURGICAL HISTORY : Right lung surgery. ENCOUNTER: Initial ACUITY: 1 day PAIN SCORE: 0/10 LOCATION: Bilateral chest FINDINGS: Compared to June 2016. There is persistent near-complete opacification of the right hemithorax ex cept for some air in the right bronchus. There is a stent in the left brachiocephalic vein. Left lung relatively clear except for minimal basilar airspace disease. No pneumothorax. Tortuous aorta. Incid ental note made of inferior vena cava filter. Interstitial prominence left lung with Nhi B-lines. CONCLUSION: 1. Opacification of the right hemithorax, stable. Mild left basilar airspace disease. Nhi B-lines on the left suggest interstitial edema. Kavin Pak MD on October 13, 2016 at 2:03 Board Certified Radiologist. This report was verified electronically.
[2016-10-13] MEDS: RESP: ALBUTEROL 2.5 MG/IPRATROPIUM 0.5 MG NEB (SCH) INH (02:28)
[2016-10-13] MEDS ORDERED: SODIUM CHLORIDE 0.9% FLUSH 10 ML FLUSH IV FLUSH PRN (05:00)
[2016-10-13] MEDS ORDERED: ONDANSETRON HCL 4 MG/2 ML VIAL IVP PRN (05:00)
[2016-10-13] MEDS ORDERED: SENNOSIDES 8.6 MG TAB PO PRN (05:00)
[2016-10-13] MEDS ORDERED: ACETAMINOPHEN 325 MG TAB PO PRN (05:00)
[2016-10-13] MEDS ORDERED: NALOXONE HCL 0.4 MG/ML AMP IV PRN (05:00)
[2016-10-13] MEDS ORDERED: BISACODYL 10 MG SUPP PR PRN (05:00)
--- NOTE | 2016-10-13 06:23 | PD ---
HPI Chief Complaint: Respiratory Symptoms Time Seen by Provider: 00:58 Travel History International Travel<30 days: No Contact w/Intl Traveler<30days: No Traveled to known affect area: No History of Present Illness HPI Patient is a 71 year old female with history of CHF, COPD, CAD, who comes in complaining of SOB. She says she has had increasing shortness of breath for the past 4 days. She says she has been using albuterol at home without much relief. She denies any chest pain. She says she has been coughing. She has not had any fever or chills. PFSH Past Medical History Hx Anticoagulant Therapy: Yes (XARELTO) Arthritis: Yes (HANDS) Asthma: No Atrial Fibrillation: Yes Autoimmune Disease: No Blood Disorders: No Anxiety: Yes Depression: Yes Heart Rhythm Problems: Yes Cancer: Yes (HX LUNG CA) Cardiac Catheterization: Yes Cardiovascular Problems: Yes (HBP) High Cholesterol: No Chemotherapy: Yes (HX) Chest Pain: Yes Congestive Heart Failure: Yes COPD: Yes Cerebrovascular Accident: No Coronary Artery Disease: Yes Diabetes: No Diminished Hearing: No Endocrine: No Fibromyalgia: Yes Gastrointestinal Disorders: Yes GERD: Yes Glaucoma: No Genitourinary: No Headaches: Yes Hepatitis: No Hiatal Hernia: No Heparin Induced Thrombocytopen: No Hypertension: Yes Immune Disorder: No Implanted Vascular Access Dvce: No Kidney Stones: No Medical other: Yes (ARTHRITIS,DIZZINESS) Musculoskeletal: No Neurologic: No Psychiatric: Yes Reproductive: No Respiratory: Yes (COPD) Immunizations Current: Yes Migraines: No Myocardial Infarction: Yes (X2) Pneumonia: Yes Radiation Therapy: Yes Renal Failure: No Seizures: No Sickle Cell Disease: No Sleep Apnea: No Thyroid Disease: Yes Ulcer: No Tetanus Vaccination: > 5 Years ?: Not Menopausal: Yes : 1 Para: 1 Miscarriage: 0 : 0 Past Surgical History Abdominal Surgery: Yes AICD: No Arteriovenous Shunt: No Body Medical Devices: Neck stent Cardiac Surgery: No Section: No Cholecystectomy: Yes Ear Surgery: No Endocrine Surgery: No Eye Surgery: No Genitourinary Surgery: No Gynecologic Surgery: No Insulin Pump: No Joint Replacement: No Neurologic Surgery: No Oral Surgery: No Pacemaker: No Thoracic Surgery: No Other Surgery: Yes (POLYPS REMOVED FROM LARYNX; ENDOSCOPY) Social History Alcohol Use: No Tobacco Use: No Substance Use: No Allergies-Medications (Allergen,Severity, Reaction): Coded Allergies: Adhesives (Verified Allergy, Severe, RASK, 07/29/16) skin breakdown Calcium Channel Blockers (Verified Allergy, Severe, DIFFICULTY BREATHING, 07/29/16) Entex LA (Verified Allergy, Severe, Anaphylaxis, 07/29/16) Marcaine (Verified Allergy, Severe, DIFFICULTY BREATHING, 10/13/16) Minocin (Verified Allergy, Severe, DIFFICULTY BREATHING, 10/13/16) Nonsteroidal Anti-Inflammatory Agts (Verified Allergy, Severe, DIFFICULTY BREATHING, 10/13/16) PEANUTS (Verified Allergy, Severe, lips swelling, 10/13/16) Penicillin (Verified Allergy, Severe, DIFFICULTY BREATHING, 10/13/16) Prilosec (Verified Allergy, Severe, DIFFICULTY BREATHING, 10/13/16) Promethazine (Verified Allergy, Severe, DIFFICULTY BREATHING, 10/13/16) Sulfa (Verified Allergy, Severe, DIFFICULTY BREATHING, 10/13/16) Prednisone (Verified Allergy, Intermediate, rash and lips swell, 10/13/16) Zyrtec (Verified Allergy, Intermediate, rash, 10/13/16) Zyprexa (Verified Adverse Reaction, Severe, Severe vomiting., 10/13/16) Fluticasone (Verified Adverse Reaction, Intermediate, [place]wness of the skin around the nose. Inhaled steroids do , 10/13/16) the same to her mouth. Omeprazole (Verified Adverse Reaction, Intermediate, [place] funny, 10/13/16) Zithromax (Verified Adverse Reaction, Intermediate, Says it made her jittery and it was harder to breathe. 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 Not sure would get same reaction to Injectable. Lian Huber MD. [place] (Adverse Reaction, Severe, Caused amnesia and a fall. , 07/10/13) Reported Meds & Prescriptions Reported Meds & Active Scripts Active Hydrocodone-Acetaminophen 5-325 mg Tab 1 Tab PO Q4H PRN Xanax (Alprazolam) 0.5 Mg Tab 0.5 Mg PO Q8H PRN Xarelto (Rivaroxaban) 15 Mg Tab 20 Mg PO DAILY Quetiapine (Quetiapine Fumarate) 25 Mg Tab 25 Mg PO BID Creon (Amylase/Lipase/Protease) 24,000-76,000-120,000 Units Cap 1 Cap PO TID Celexa (Citalopram Hydrobromide) 20 Mg Tab 40 Mg PO DAILY Reported Metoprolol Tartrate 25 Mg Tab 25 Mg PO TID Ipratropium [place] 1 Pow Pow 0.5 Mg NEB TID Levothyroxine (Levothyroxine Sodium) 50 Mcg Tab 50 Mcg PO DAILY Zantac 150 Maximum Strength (Ranitidine HCl) 150 Mg Tab 150 Mg PO BID Mylanta Liq (Ekclsiff-Dvjfvnccb-Qdaaugjehgv Liq) 200-200-20 Mg/5 Ml Susp 30 Ml PO Q8HR Take between meals or as directed. Shake well. Maximum 120 ml/24 hrs. Potassium Chloride ER (Potassium Chloride) 10 Meq Cap 10 Meq PO DAILY Review of Systems Except as stated in HPI: all other systems reviewed are Neg General / Constitutional: No: Fever, Chills Eyes: No: Blurred Vision HENT: No: Headaches, Lightheadedness Cardiovascular: No: Chest Pain or Discomfort Respiratory: Positive: Shortness of Breath Gastrointestinal: No: Nausea, Vomiting Genitourinary: No: Dysuria Musculoskeletal: No: Edema, Pain Skin: No Rash, No Change in Pigmentation Physical Exam Narrative GENERAL: Awake and alert, in no acute distress. SKIN: Focused skin assessment warm/dry. HEAD: Atraumatic. Normocephalic. EYES: Pupils equal and round. No scleral icterus. ENT: Mucous membranes pink and moist. NECK: Trachea midline. No JVD. CARDIOVASCULAR: Regular rate and rhythm. No murmur appreciated. RESPIRATORY: No accessory muscle use. Wheezing throughout the lungs.. Breath sounds equal bilaterally. GASTROINTESTINAL: Abdomen soft, non-tender, nondistended. MUSCULOSKELETAL: No obvious deformities. No clubbing. No cyanosis. No edema. NEUROLOGICAL: Awake and alert. No obvious cranial nerve deficits. Motor grossly within normal limits. Normal speech. PSYCHIATRIC: Appropriate mood and affect; insight and judgment normal. Data Data Last Documented VS Vital Signs Date Time Temp Pulse Resp B/P Pulse Ox O2 Delivery O2 Flow Rate FiO2 3/29/17 01:31 Nasal Cannula 4 10/13/16 00:54 97.8 88 24 169/93 100 Orders Complete Blood Count With Diff (10/13/16 01:06) Comprehensive Metabolic Panel (10/13/16 01:06) B-Type Natriuretic Peptide (10/13/16 01:06) Act Partial Throm Time (Ptt) (10/13/16 01:06) Prothrombin Time / Inr (Pt) (10/13/16 01:06) Troponin I (10/13/16 01:06) Iv Access Insert/Monitor (10/13/16 01:06) Ecg Monitoring (10/13/16 01:06) Oximetry (10/13/16 01:06) Oxygen Administration (10/13/16 01:06) Chest, Pa & Lat (10/13/16 01:06) Sodium Chloride 0.9% Flush (Ns Flush) (10/13/16 01:15) Albuterol-Ipratropium Neb (Duoneb Neb) (10/13/16 01:15) Furosemide Inj (Lasix Inj) (10/13/16 09:00) Admit Order (Ed Use Only) (10/13/16 ) Labs Laboratory Tests Test 10/13/16 01:00 White Blood Count 6.0 TH/MM3 Red Blood Count 3.42 MIL/MM3 Hemoglobin 10.2 GM/DL Hematocrit 30.5 % Mean Corpuscular Volume 89.1 FL Mean Corpuscular Hemoglobin 29.8 PG Mean Corpuscular Hemoglobin 33.4 % Concent Red Cell Distribution Width 14.7 % Platelet Count 146 TH/MM3 Mean Platelet Volume 7.8 FL Neutrophils (%) (Auto) 66.4 % Lymphocytes (%) (Auto) 23.4 % Monocytes (%) (Auto) 6.8 % Eosinophils (%) (Auto) 2.4 % Basophils (%) (Auto) 1.0 % Neutrophils # (Auto) 4.0 TH/MM3 Lymphocytes # (Auto) 1.4 TH/MM3 Monocytes # (Auto) 0.4 TH/MM3 Eosinophils # (Auto) 0.1 TH/MM3 Basophils # (Auto) 0.1 TH/MM3 CBC Comment DIFF FINAL Differential Comment Prothrombin Time 12.1 SEC Prothromb Time International 1.1 RATIO Ratio Activated Partial 31.9 SEC Thromboplast Time Sodium Level 131 MEQ/L Potassium Level 4.1 MEQ/L Chloride Level 97 MEQ/L Carbon Dioxide Level 26.8 MEQ/L Anion Gap 7 MEQ/L Blood Urea Nitrogen 12 MG/DL Creatinine 0.82 MG/DL Estimat Glomerular Filtration 69 ML/MIN Rate Random Glucose 96 MG/DL Calcium Level 9.4 MG/DL Total Bilirubin 0.5 MG/DL Aspartate Amino Transf 18 U/L (AST/SGOT) Alanine Aminotransferase 19 U/L (ALT/SGPT) Alkaline Phosphatase 59 U/L Troponin I 0.06 NG/ML B-Type Natriuretic Peptide 111 PG/ML Total Protein 7.0 GM/DL Albumin 3.7 GM/DL [facility] Medical Decision Making Medical Screen Exam Complete: Yes Emergency Medical Condition: Yes Medical Record Reviewed: Yes Interpretation(s) ECG shows A. fib with PVCs. Rate is controlled. Differential Diagnosis CHF versus ACS versus COPD exacerbation versus pneumonia Narrative Course Patient is a 71-year-old female complaining of shortness of breath. IV established, labs sent. Patient given 3 duo nebs. Connected to the technology auditor. Labs show a troponin of 0.06. Patient has had a troponin at this level in the past. She is currently not having any chest pain. Given aspirin. Chest x-ray shows a right-sided pleural effusion which is chronic. Does show curly B-lines on the left. Patient given Lasix. Admitted for further management. Diagnosis Primary Impression: COPD (chronic obstructive pulmonary disease) Qualified Code: J44.1 - Chronic obstructive pulmonary disease with acute exacerbation Additional Impression: CHF (congestive heart failure) Qualified Code: I50.21 - Acute systolic congestive heart failure Admitting Information Admitting Physician Requests: Admit Janene Perdomo MD Oct 13, 2016 06:23
--- NOTE | 2016-10-13 08:35 | HHI.HP ---
HPI Service [facility] Primary Care Physician Non-Staff Admission Diagnosis CHF/COPD exacerbation Diagnoses: Chief Complaint: sob (Sherron Mota) Travel History International Travel<30 Days: No Contact w/Intl Traveler <30 Da: No Traveled to Known Affected Are: No (Sherron Mota) History of Present Illness This is a pleasant 71 year-old female with significant past medical history of COPD oxygen dependent, chronic imaging changes secondary to fibrosis, CAD status post UT 2, dementia, 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 fib, depression, anxiety, hypertension. Patient with frequent hospitalizations and ER visits for COPD exacerbation and chest discomfort. Was recently seen here at the chest pain center and discharge. Patient returns to the emergency room complaining of increasing shortness of breath for the last 4 days. Has had increased wheezing, has been using nebulizers without any relief. Has noted increased dyspnea with exertion, no leg swelling, no chest pain, no lightheadedness, no palpitations. She has had a cough, very little sputum. Denies any fever, no chills. Patient lives alone , has home health care services and physical therapy. Patient evaluated in emergency room, laboratory workup is essentially unremarkable. There is mild elevation in BNP- 111. Chest x-ray Last Impressions Chest X-Ray 10/13/16 0106 Signed Impressions: Service Date/Time: Thursday, October 13, 2016 01:48 - CONCLUSION: 1. Opacification of the right hemithorax, stable. Mild left basilar airspace disease. Nhi B-lines on the left suggest interstitial edema. Kavin Pak MD Patient was given DuoNeb's. Indicates she is feeling much better. She wants to know if she is going home today. Also requesting to see her med spec Dr. Connelly. Patient is complaining of anxiety, requesting Xanax. Patient is admitted for further evaluation and treatment. (Sherron Mota) Review of Systems Constitutional: DENIES: Diaphoretic episodes, Fatigue, Fever, Weight gain, Weight loss, Chills, Dizziness, Change in appetite, Night Sweats Endocrine: DENIES: Abnorml menstrual pattern, Heat/cold intolerance, Polydipsia , Polyuria, Polyphagia Eyes: DENIES: Blurred vision, Diplopia, Eye inflammation, Eye pain, Vision loss , Photosensitivity, Double Vision Ears, nose, mouth, throat: DENIES: Tinnitus, Hearing loss, Vertigo, Nasal discharge, Oral lesions, Throat pain, Hoarseness, Ear Pain, Running Nose, Epistaxis, Sinus Pain, Toothache, Odynophagia Respiratory: COMPLAINS OF: Cough, Wheezing, Sputum production, Shortness of breath Cardiovascular: COMPLAINS OF: Dyspnea on Exertion, DENIES: Chest pain, Palpitations, Syncope, PND, Lower Extremity Edema, Orthopnea, Claudication Gastrointestinal: DENIES: Abdominal pain, Black stools, Bloody stools, Constipation, Diarrhea, Nausea, Vomiting, Difficulty Swallowing, Anorexia Genitourinary: DENIES: Abnormal vaginal bleeding, Dysmenorrhea, Dyspareunia, Sexual dysfunction, Urinary frequency, Urinary incontinence, Urgency, Hematuria , Dysuria, Nocturia, Vaginal discharge Musculoskeletal: COMPLAINS OF: Muscle aches, DENIES: Joint pain, Stiffness, Joint Swelling, Back pain, Neck pain Hematologic/lymphatic: DENIES: Bruising, Lymphadenopathy Immunologic/allergic: DENIES: Eczema, Urticaria Neurologic: DENIES: Abnormal gait, Headache, Localized weakness, Paresthesias, Seizures, Speech Problems, Tremor, Poor Balance Psychiatric: COMPLAINS OF: Anxiety, DENIES: Confusion, Mood changes, Depression, Hallucinations, Agitation, Suicidal Ideation, Homicidal Ideation, Delusions (Sherron Mota) Past Family Social History Past Medical History COPD CAD s/p UT x2 Neck abscess (drained 02/19/16) Esophageal Stricture, s/p esophageal dilation 08/2015 Small Cell Lung Cancer on R 04/21 [id number] Chemo & Radiation Diverticulosis Afib Depression Anxiety HTN Hypothyroidism Dementia Admitted with SOB, found with collapsed right upper lobe, occlusion RUL bronchus , had bronch/lung bx, benign findings. Changes likely due to chronic fibrosis. Left renal mass Takotsubo evaluated via cardiac catheter in 2009 Past Surgical History Vocal Cord Polypectomy ' Breast Bx Laparoscopic Choly Esophageal Dilations Recurrent PortaCath Removed in 11/24 Cardiac Cath: Dr Urbina Normal Coronaries. Bilateral Cataracts ' Permanent IVC filter placed 08/30 Rhinolaryngoscopy 2011 Cardiac Cath 01/26 Dr Essie Paz at [facility] Permanent IVC filter placed 08/30 EGD and Colonoscopy at [facility] 08/30 S/P bronch, lung bx 06/2016, benign findings. Reported Medications Reported Meds & Active Scripts Active Hydrocodone-Acetaminophen 5-325 mg Tab 1 Tab PO Q4H PRN Xanax (Alprazolam) 0.5 Mg Tab 0.5 Mg PO Q8H PRN Xarelto (Rivaroxaban) 15 Mg Tab 20 Mg PO DAILY Quetiapine (Quetiapine Fumarate) 25 Mg Tab 25 Mg PO BID Creon (Amylase/Lipase/Protease) 24,000-76,000-120,000 Units Cap 1 Cap PO TID Celexa (Citalopram Hydrobromide) 20 Mg Tab 40 Mg PO DAILY Reported Metoprolol Tartrate 25 Mg Tab 25 Mg PO TID Ipratropium [place] 1 Pow Pow 0.5 Mg NEB TID Levothyroxine (Levothyroxine Sodium) 50 Mcg Tab 50 Mcg PO DAILY Zantac 150 Maximum Strength (Ranitidine HCl) 150 Mg Tab 150 Mg PO BID Mylanta Liq (Ltbaekfp-Rlyyoxbuc-Kndudtyljdf Liq) 200-200-20 Mg/5 Ml Susp 30 Ml PO Q8HR Take between meals or as directed. Shake well. Maximum 120 ml/24 hrs. Potassium Chloride ER (Potassium Chloride) 10 Meq Cap 10 Meq PO DAILY (Sherron Mota) Allergies: Coded Allergies: Adhesives (Verified Allergy, Severe, RASK, 07/29/16) skin breakdown Calcium Channel Blockers (Verified Allergy, Severe, DIFFICULTY BREATHING, 07/29/16) Entex LA (Verified Allergy, Severe, Anaphylaxis, 07/29/16) Marcaine (Verified Allergy, Severe, DIFFICULTY BREATHING, 10/13/16) Minocin (Verified Allergy, Severe, DIFFICULTY BREATHING, 10/13/16) Nonsteroidal Anti-Inflammatory Agts (Verified Allergy, Severe, DIFFICULTY BREATHING, 10/13/16) PEANUTS (Verified Allergy, Severe, lips swelling, 10/13/16) Penicillin (Verified Allergy, Severe, DIFFICULTY BREATHING, 10/13/16) Prilosec (Verified Allergy, Severe, DIFFICULTY BREATHING, 10/13/16) Promethazine (Verified Allergy, Severe, DIFFICULTY BREATHING, 10/13/16) Sulfa (Verified Allergy, Severe, DIFFICULTY BREATHING, 10/13/16) Prednisone (Verified Allergy, Intermediate, rash and lips swell, 10/13/16) Zyrtec (Verified Allergy, Intermediate, rash, 10/13/16) Zyprexa (Verified Adverse Reaction, Severe, Severe vomiting., 10/13/16) Fluticasone (Verified Adverse Reaction, Intermediate, Rawness of the skin around the nose. Inhaled steroids do , 10/13/16) the same to her mouth. Omeprazole (Verified Adverse Reaction, Intermediate, Sullivan funny, 10/13/16) Zithromax (Verified Adverse Reaction, Intermediate, Says it made her jittery and it was harder to breathe. 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 Not sure would get same reaction to Injectable. Lian Huber MD. Jacob (Adverse Reaction, Severe, Caused amnesia and a fall. , 07/10/13) Active Ordered Medications Inpatient Medications Acetaminophen (Tylenol) 650 mg Q4H PRN PO TEMP > 100.4; Start 10/13/16 at 05:00 Albuterol/ Ipratropium (Duoneb Neb) 1 ampule Q4HR NEB PRN NEB sob; Start at 05:00 Bisacodyl (Dulcolax Supp) 10 mg DAILY PRN ND CONSTIPATION; Start 10/13/16 at 05 :00 Furosemide (Lasix Inj) 20 mg DAILY IV PUSH ; Start 10/13/16 at 09:00 Heparin Sodium (Porcine) (Heparin Inj) 5,000 units Q12HR SQ ; Start 10/13/16 at 09:00 Naloxone HCl (Narcan Inj) 0.4 mg UNSCH PRN IV SEE LABEL COMMENTS; Start at 05:00 Ondansetron HCl (Zofran Inj) 4 mg Q6H PRN IVP NAUSEA OR VOMITING; Start at 05:00 Sennosides (Senokot) 17.2 mg Q12H PRN PO CONSTIPATION; Start 10/13/16 at 05:00 Sodium Chloride (NS Flush) 2 ml BID IV FLUSH ; Start 10/13/16 at 09:00 Family History Alcoholism, Drug Abuse, Suicidal Depression/Anxiety. Cancer of the larynx in her brother (Smoker). Sister has gout and renal cancer. One sister has polyposis (Denise), RA in oldest sister. 16 yo niece hung herself. 1 sister with thyroid cancer. Mother was 54 years and killed herself with a 22 pistol. 1 Brother shot himself at age 46. Social History Marital Status: and lives alone. Has [facility], PT services. Living Situation: Lives in own home, son lives across street Tobacco: DC'd cigs in . Alcohol: None Illicit drug use: none (Sherron Mota) Physical Exam Vital Signs Vital Signs Date Time Temp Pulse Resp B/P Pulse Ox O2 Delivery O2 Flow Rate FiO2 10/13/16 05:29 24 100 Nasal Cannula 10/13/16 05:27 66 20 168/72 100 Nasal Cannula 2 10/13/16 01:31 Nasal Cannula 4 10/13/16 00:54 97.8 88 24 169/93 100 10/13/16 00:41 97.9 93 20 169/93 99 Nasal Cannula 4 10/13/16 00:41 82 99 Nasal Cannula 4 Physical Exam GENERAL: This is a well-nourished, well-developed patient, in no apparent distress. SKIN: No rashes, ecchymoses or lesions. Cool and dry. HEAD: Atraumatic. Normocephalic. No temporal or scalp tenderness. EYES: Pupils equal round and reactive. Extraocular motions intact. No scleral icterus. No injection or drainage. ENT: Nose without bleeding, purulent drainage or septal hematoma. Throat without erythema, tonsillar hypertrophy or exudate. Uvula midline. Airway patent. NECK: Trachea midline. No JVD or lymphadenopathy. Supple, nontender, no meningeal signs. CARDIOVASCULAR: Regular rate and rhythm without murmurs, gallops, or rubs. RESPIRATORY: Diminished, poor respiratory effort. Faint upper airway wheezing. GASTROINTESTINAL: Abdomen soft, non-tender, nondistended. No hepato-splenomegaly , or palpable masses. No guarding. MUSCULOSKELETAL: Extremities without clubbing, cyanosis, or edema. No joint tenderness, effusion, or edema noted. No calf tenderness. Negative Homans sign bilaterally. Toes deformities. NEUROLOGICAL: Awake, alert oriented 3. No focal deficit. Pleasant Laboratory Laboratory Tests Test 10/13/16 10/13/16 01:00 07:33 White Blood Count 6.0 Red Blood Count 3.42 Hemoglobin 10.2 Hematocrit 30.5 Mean Corpuscular Volume 89.1 Mean Corpuscular Hemoglobin 29.8 Mean Corpuscular Hemoglobin 33.4 Concent Red Cell Distribution Width 14.7 Platelet Count 146 Mean Platelet Volume 7.8 Neutrophils (%) (Auto) 66.4 Lymphocytes (%) (Auto) 23.4 Monocytes (%) (Auto) 6.8 Eosinophils (%) (Auto) 2.4 Basophils (%) (Auto) 1.0 Neutrophils # (Auto) 4.0 Lymphocytes # (Auto) 1.4 Monocytes # (Auto) 0.4 Eosinophils # (Auto) 0.1 Basophils # (Auto) 0.1 CBC Comment DIFF FINAL Differential Comment Prothrombin Time 12.1 Prothromb Time International 1.1 Ratio Activated Partial 31.9 Thromboplast Time Sodium Level 131 Potassium Level 4.1 Chloride Level 97 Carbon Dioxide Level 26.8 Anion Gap 7 Blood Urea Nitrogen 12 Creatinine 0.82 Estimat Glomerular Filtration 69 Rate Random Glucose 96 Calcium Level 9.4 Total Bilirubin 0.5 Aspartate Amino Transf 18 (AST/SGOT) Alanine Aminotransferase 19 (ALT/SGPT) Alkaline Phosphatase 59 Troponin I 0.06 0.07 B-Type Natriuretic Peptide 111 Total Protein 7.0 Albumin 3.7 (Sherron Mota) Result Diagram: 10/13/169910/13/1699 Imaging Last Impressions Chest X-Ray 10/13/16105 Signed Impressions: Service Date/Time: Thursday, October 13, 2016 01:48 - CONCLUSION: 1. Opacification of the right hemithorax, stable. Mild left basilar airspace disease. Nhi B-lines on the left suggest interstitial edema. Kavin Pak MD (Sherron Mota) Assessment and Plan Problem List: (1) COPD (chronic obstructive pulmonary disease) (2) COPD exacerbation (3) Dyspnea (4) Depression with anxiety (5) HTN (hypertension) (6) History of UT (myocardial infarction) (7) CAD (coronary artery disease) (8) Hypothyroidism (9) Atrial fibrillation (10) CHF (congestive heart failure) Assessment and Plan Admit to Dr. Panja 71-year-old female with history of COPD oxygen dependent, CAD, afib, hx lung cancer. Patient presented to emergency room complaining with worsening dyspnea with exertion, no chest pain, has been using nebulizers without any relief. No fever, chills. Was evaluated in emergency room, possible COPD exacerbation versus CHF. Chest x-ray noted with opacification of the right hemithorax that is similar to previous imaging studies. Mild left basilar airspace disease. Nih B lines suggesting interstitial edema. COPD exacerbation Continue with oxygen Continue with DuoNeb's Patient refusing IV steroids Consult her med spec, Dr. Connelly CHF, acute on chronic -Continue with Lasix 20 mg IV daily Monitor intake and output Chronic A. fib, stable Continue with Lopressor 25 mg by mouth 3 times a day Continue with Xarelto -Continuous cardiac telemetry Hypertension Continue home medications Depression and anxiety Continue with home Home medications reviewed, initiated as indicated Continue with Xarelto for DVT prophylaxis Pepcid for GI prophylaxis Plan of care has been discussed with the patient, attending and registered nurse. Further management of the patient will be dependent on the hospital course If patient remains stable, possible discharge tomorrow. We will resume home healthcare services and physical therapy. This patient was seen by myself and Dr. Caputo, this H&P is written on his behalf (Sherron Mota) Assessment and Plan Pt seen and examined as above chart reviewed meds reviwed labs reviewed rad data reviwed previous notes reviewed sushil mcgraw about plan of care dw pt dw rn agree with above plan of care (Alistair Caputo MD) Problem Qualifiers (1) COPD (chronic obstructive pulmonary disease): Qualified Code: J44.1 - Chronic obstructive pulmonary disease with acute exacerbation (2) Dyspnea: Qualified Code: R06.09 - Dyspnea on exertion (3) HTN (hypertension): Qualified Code: I10 - Essential hypertension (4) CAD (coronary artery disease): Qualified Code: I25.118 - Coronary artery disease of [place] artery of [place] heart with stable angina pectoris (5) Hypothyroidism: Qualified Code: E03.9 - Hypothyroidism, unspecified type (6) Atrial fibrillation: Qualified Code: I48.2 - Chronic atrial fibrillation (7) CHF (congestive heart failure): Qualified Code: I50.23 - Acute on chronic systolic congestive heart failure Sherron Mota Oct 13, 2016 08:34 Alistair Caputo MD Oct 13, 2016 20:56
[2016-10-13] MEDS ORDERED: HEPARIN SODIUM - SQ 10,000 UNITS/ML VIAL SQ SCH (09:00)
[2016-10-13] MEDS: FUROSEMIDE 20 MG/2 ML VIAL IV PUSH SCH (09:27)
[2016-10-13] MEDS: SODIUM CHLORIDE 0.9% FLUSH 10 ML FLUSH IV FLUSH SCH ×2 (09:27→20:31)
[2016-10-13] MEDS ORDERED: ALPRAZolam 0.5 MG TAB PO PRN (10:00)
[2016-10-13] MEDS: METOPROLOL TARTRATE 25 MG TAB PO SCH ×4 (10:11→18:00)
[2016-10-13] MEDS: FAMOTIDINE 20 MG TAB PO SCH ×2 (10:12→20:31)
[2016-10-13] MEDS: LIPASE/PROTEASE/AMYLASE (24,000/76,000/120,000) CAP PO SCH ×3 (10:28→18:00)
[2016-10-13] MEDS: QUEtiapine FUMARATE 25 MG TAB PO SCH ×2 (10:28→20:30)
[2016-10-13] MEDS: POTASSIUM CHLORIDE 10 MEQ CAP PO SCH (10:28)
[2016-10-13] MEDS: CITALOPRAM HYDROBROMIDE 20 MG TAB PO SCH (10:29)
[2016-10-13] MEDS: LEVOTHYROXINE SODIUM 50 MCG TAB PO SCH (10:29)
[2016-10-13] MEDS: RIVAROXABAN 20 MG TAB PO SCH (12:59)
[2016-10-13] MEDS: RESP: ALBUTEROL 2.5 MG/IPRATROPIUM 0.5 MG NEB (PRN) NEB ×2 (13:23→18:31)
[2016-10-13] MEDS: ALUMINUM/MAGNESIUM/SIMETH 30 ML CUP PO SCH ×3 (16:29→20:32)
[2016-10-13] MEDS: MIRTAZAPINE 15 MG TAB PO SCH (20:30)
[2016-10-13] MEDS: ALPRAZolam 0.5 MG TAB PO PRN (20:30)
[2016-10-13] MEDS: methylPREDNISolone SOD SUCC 40 MG/1 ML VIAL IV PUSH SCH (20:30)
--- NOTE | 2016-10-13 20:30 | EKG ---
Date Performed: 10/13/2016 Time Performed: 00:38:50 PTAGE: 71 years EKG: ATRIAL FIBRILLATION WITH ABERRANT CONDUCTION OR VENTRICULAR PREMATURE COMPLEXES ABNORMAL [facility] ECG PREVIOUS TRACING : 09/03/2016 02.03 Compared to the previous tracing PVCs present DOCTOR: Shiv Borrego Interpretating Date/Time 10/13/2016 20:30:06
[2016-10-14] VITALS (9 sets, daily range): BP systolic 118–161; BP diastolic 63–79; PULSE 65–96; RESP 16–20; TEMP 97.2–98.1; O2SAT 94–100
--- NOTE | 2016-10-14 05:19 | MB ---
cc: KODI BARRERA DATE OF CONSULTATION 10/13/2016 REASON FOR CONSULTATION COPD. HISTORY OF PRESENT ILLNESS This is a 71-year-old lady with a history of COPD and a history of chronic anxiety and depression, has been on home oxygen at 2.5 liters nasal cannula. The patient has also been on an anticoagulant including Xarelto at 20 mg daily and she is on Xanax 0.5 mg q. 8 p.r.n. for anxiety as well as Celexa 40 mg daily. She was admitted to the ER because she could not breathe and her O2 sats were low. The patient also has had some leg swelling. Following admission, the patient's chest x-ray was done which demonstrated evidence of opacification of the right lung field which was stable and mild left basilar air space disease and mild pulmonary edema. She was given a dose of diuretics. Denies any fevers or chills, night sweats or hemoptysis. She brings up a little whitish mucus and she also complains of reflux symptoms and nausea. PAST HISTORY 1. COPD. 2. History of non-small cell lung CA with radiation and chemotherapy. There is no history of diabetes or hypertension. ALLERGIES To multiple drugs including - PENICILLIN. PEANUTS. MARCAINE. MINOCIN. ZYRTEC. SULFA. PREDNISONE. ZITHROMAX. OMEPRAZOLE. FAMILY HISTORY Noncontributory. REVIEW OF SYSTEMS The patient is overweight. She has chest tightness and back pain. She as urinary frequency, epigastric distress and nausea. She has no urinary symptoms. No leg or calf muscle pains. She has some joint pains of her extremities. Any other systems reviewed negative. FAMILY HISTORY Unremarkable and noncontributory. HABITS The patient has a prior history of smoking for over 30 years and then quit. No significant alcohol. PHYSICAL EXAMINATION GENERAL: This elderly white female is anxious, mildly dyspneic at rest. VITAL SIGNS: Blood pressure 168/70, pulse is 66, respirations 18, temperature 97.5. HEENT: Head normocephalic. Pupils are reactive. Tongue moist. Nasal mucosa injected. Ears - no inflammation. Throat - clear. NECK: Supple. No lymphadenopathy. Trachea midline. CHEST: Equal movements, prolonged expirations. Diminished breath sounds over the right lung san[place] with occasional wheezes bilaterally and crackles of the left base. HEART: The heart sounds are irregular. S1-S2. No murmur. No S3. ABDOMEN: Soft, benign. No masses or organomegaly or tenderness. Bowel sounds are active. EXTREMITIES: Mild varicosities and diminished peripheral pulses. No edema. Cool and dry. NEUROLOGIC: Reflexes are 1+ with no gross motor deficits. Cranial nerves are grossly intact. IMPRESSION 1. COPD with acute exacerbation. 2. Pulmonary edema, resolving. 3. History of non-small cell lung CA. 4. History of atrial arrhythmias. 5. History of DVT PLAN The patient has been placed on oxygen at 3 liters, nebulized DuoNeb solution added t.i.d. p.r.n. and a repeat chest x-ray to be done. She already has had CAT scans of the chest which have documented the finding in the right lung with no evidence of mass. She will be placed on IV Solu-Medrol 40 mg b.i.d. and electrolytes and CBC will be drawn as well. Thank you Dr. Caputo for this consultation. MD REJI Ruth/MAKAYLA /11:45 PM /5:05 AM
[2016-10-14] MEDS: LEVOTHYROXINE SODIUM 50 MCG TAB PO SCH (05:36)
[2016-10-14] MEDS: ALUMINUM/MAGNESIUM/SIMETH 30 ML CUP PO SCH ×3 (05:36→21:14)
[2016-10-14] MEDS: ALPRAZolam 0.5 MG TAB PO PRN ×4 (07:40→23:45)
[2016-10-14] MEDS: RESP: ALBUTEROL 1.25 MG/3 ML NEB (PRN) NEB ×2 (08:02→19:15)
[2016-10-14 08:07] LABS: AUTOMATED NEUTROPHIL # 3.6 TH/MM3 (1.8-7.7); BASOPHIL % 0.2 % (0.0-2.0); EOSINOPHIL % 0.1 % (0.0-4.0); HEMATOCRIT 29.8 % (35.0-46.0); HEMO FLAGS DIFF FINAL; LYMPH % 11.4 % (9.0-44.0); LYMPHOCYTE # 0.5 TH/MM3 (1.0-4.8); MEAN CELL VOLUME 87.7 FL (80.0-100.0); MEAN CORPUSCULAR HEMOGLOBIN 29.3 PG (27.0-34.0); MEAN CORPUSCULAR HGB CONC 33.5 % (32.0-36.0); MONO % 1.1 % (0.0-8.0); NEUT % 87.2 % (16.0-70.0); PLATELET COUNT 150 TH/MM3 (150-450); RED CELL DISTRIBUTION WIDTH 14.7 % (11.6-17.2); WHITE BLOOD COUNT 4.1 TH/MM3 (4.0-11.0)
[2016-10-14 08:12] LABS: BICARBONATE 28.2 MEQ/L (21.0-32.0); POTASSIUM 4.1 MEQ/L (3.5-5.1)
[2016-10-14] MEDS: RIVAROXABAN 20 MG TAB PO SCH (08:33)
[2016-10-14] MEDS: POTASSIUM CHLORIDE 10 MEQ CAP PO SCH (08:34)
[2016-10-14] MEDS: LIPASE/PROTEASE/AMYLASE (24,000/76,000/120,000) CAP PO SCH ×3 (08:34→17:54)
[2016-10-14] MEDS: QUEtiapine FUMARATE 25 MG TAB PO SCH ×2 (08:34→21:14)
[2016-10-14] MEDS: CITALOPRAM HYDROBROMIDE 20 MG TAB PO SCH (08:35)
[2016-10-14] MEDS: FAMOTIDINE 20 MG TAB PO SCH ×2 (08:36→21:14)
[2016-10-14] MEDS: METOPROLOL TARTRATE 25 MG TAB PO SCH ×3 (08:36→17:54)
[2016-10-14] MEDS: FUROSEMIDE 20 MG/2 ML VIAL IV PUSH SCH (08:38)
[2016-10-14] MEDS: methylPREDNISolone SOD SUCC 40 MG/1 ML VIAL IV PUSH SCH ×2 (08:39→21:14)
[2016-10-14] MEDS: SODIUM CHLORIDE 0.9% FLUSH 10 ML FLUSH IV FLUSH SCH ×2 (08:44→21:00)
[2016-10-14] MEDS ORDERED: FUROSEMIDE 20 MG/2 ML VIAL IV PUSH ONE (10:30)
--- NOTE | 2016-10-14 10:35 | HHI.PR ---
Subjective Remarks Talkative, hopeful to go home soon Counseled on dietary needs, ordering for muffins for breakfast Alert Head of bed elevated 60 BM today Afebrile (Brionna Fuentes) Objective Objective Results - Vital Signs Date Time Temp Pulse Resp B/P Pulse Ox O2 Delivery O2 Flow Rate FiO2 10/14/16 08:02 100 Nasal Cannula 2.00 10/14/16 04:00 97.4 65 17 118/63 97 10/14/16 00:01 97.5 92 16 129/76 96 10/13/16 20:08 82 10/13/16 20:00 97.9 93 17 135/73 96 10/13/16 18:37 98 Nasal Cannula 2.00 10/13/16 16:00 97.6 99 26 147/64 91 10/13/16 12:00 98.7 80 24 151/75 92 10/13/16 10:37 73 18 162/76 100 Nasal Cannula 2 I/O 10/13/16 10/13/16 10/13/16 10/14/16 10/14/16 10/14/16 07:00 15:00 23:00 07:00 15:00 23:00 Intake Total 200 ml 302 ml 202 ml Output Total 500 ml 400 ml Balance -300 ml -98 ml 202 ml Intake Oral 200 ml 300 ml 200 ml IV Total 2 ml 2 ml Output Urine Total 500 ml 400 ml # Voids 1 1 1 (Brionna Fuentes) Result Diagram: 10/14/16 0555 10/14/16 0555 ROS General: Fatigue, Other (10 point ROS done, positives include shortness of breath decreased breath sounds, otherwise unremarkable) Pulmonary: SOB (mild at rest and exertional) GI: BM (today) (Brionna Fuentes) Physical Exam Physical Exam PHYSICAL EXAMINATION GENERAL: This is an obese well-developed, well-nourished female who appears to be in mild SOB distress. She is alert and awake, O2 on her nasal cannula HEAD: Normocephalic without any lesion or mass noted. Facial features appear symmetric. OROPHARYNGEAL: Oropharynx without erythema or edema. NECK: Supple. No nuchal rigidity or lymphadenopathy. Trachea midline without deviation. CARDIAC: Regular rhythm, regular rate, S1 and S2 are heard. No murmurs rubs or gallops LUNGS: Diminished left and right to auscultation bilaterally. Positive for use of accessory muscles on inspiration ABDOMEN: Round ,Soft, nontender, no organomegaly or masses. Bowel sounds are heard in all four quadrants. No rebound. No guarding. EXTREMITIES: Trace to 1+ edema. Pulses equal bilateral. NEUROLOGICAL: Patient mood and affect appropriate. Talkative SKIN:Warm and moist Objective Remarks I'm hoping to go home soon. How am I doing (Brionna Fuentes) A/P Assessment and Plan Vital signs reviewed, labs reviewed, blood sugar 128, probable secondary to meds , mild hyponatremia monitor Dietary counseling for caloric intake, increase protein in her diet COPD exacerbation Continue with oxygen, continuous patient uses home O2. 2.5 L Continue with DuoNeb's Encouraged IV steroids Appreciate pulmonary consult. Anemia, stable probable secondary to chronic disease. Currently at 10. Bowel regimen, BM today CHF, acute on chronic -Continue with Lasix 20 mg IV daily, dose to be given today Monitor intake and output, active diuresis noted Chronic A. fib, stable Continue with Lopressor 25 mg by mouth 3 times a day Continue with Xarelto telemetry, rate controlled Hypertension, stable Continue home medications Depression and anxiety, home meds, Xanax when necessary, would like her dose increased if possible. Encouraged her to discuss with Dr. Caputo Continue with Xarelto for DVT prophylaxis Pepcid for GI prophylaxis Discharge planning initiated, home soon. Discussed With: Nurse, Family (patient), Other (Dr. Caputo, patient seen on his behalf) (Brionna Fuentes) Assessment and Plan Patient seen and examined as above Medications and labs reviewed Plan of care discussed with HORSE BREAKER Discussed with patient Aggravated with above (Alistair Caputo MD) Brionna Fuentes Oct 14, 2016 10:35 Alistair Caputo MD Oct 14, 2016 15:23
[2016-10-14] MEDS: RESP: ALBUTEROL 2.5 MG/IPRATROPIUM 0.5 MG NEB (PRN) NEB ×2 (16:34→21:46)
--- NOTE | 2016-10-14 18:54 | HHI.PR ---
Subjective Remarks C/O some cough and wheezing. Was diuresing well. On 2 L o2 Objective Vital Signs Date Time Temp Pulse Resp B/P Pulse Ox O2 Delivery O2 Flow Rate FiO2 10/14/16 08:02 100 Nasal Cannula 2.00 10/14/16 08:00 97.9 86 20 146/65 94 10/14/16 04:00 97.4 65 17 118/63 97 10/14/16 00:01 97.5 92 16 129/76 96 10/13/16 20:08 82 10/13/16 20:00 97.9 93 17 135/73 96 I/O 10/13/16 10/13/16 10/13/16 10/14/16 10/14/16 10/14/16 07:00 15:00 23:00 07:00 15:00 23:00 Intake Total 200 ml 302 ml 202 ml Output Total 500 ml 400 ml Balance -300 ml -98 ml 202 ml Intake Oral 200 ml 300 ml 200 ml IV Total 2 ml 2 ml Output Urine Total 500 ml 400 ml # Voids 1 1 1 Result Diagram: 10/14/16 0555 10/14/16 0555 Objective Remarks GENERAL: This elderly white female is anxious, mildly dyspneic at rest. HEENT: Head normocephalic. Pupils are reactive. Tongue moist. Nasal mucosa injected. Ears - no inflammation. Throat - clear. NECK: Supple. No lymphadenopathy. Trachea midline. CHEST: Equal movements, prolonged expirations. Diminished breath sounds over the right lung [place] with occasional wheezes bilaterally and crackles at the left base. HEART: The heart sounds are irregular. S1-S2. No murmur. No S3. ABDOMEN: Soft, benign. No masses or organomegaly or tenderness. Bowel sounds are active. EXTREMITIES: Mild varicosities and diminished peripheral pulses. No edema.. NEUROLOGIC: Reflexes are 1+ with no gross motor deficits. Cranial nerves are grossly intact. Assessment and Plan Assessment and Plan IMPRESSION 1. COPD with acute exacerbation. 2. Pulmonary edema, resolving. 3. History of non-small cell lung CA. 4. History of atrial arrhythmias. 5. History of DVT Plan : 1. Taper solumedrol to 20 mg bid. 2. Nebs qid , duoneb. 3. Cont Xarelto 20 mg . 4. Cont Diuretic daily. 5. CBC,BMP. 6. Home in am if stable. D'Mckenna,V. Hasmukh MD Oct 14, 2016 18:54
[2016-10-14] MEDS: MIRTAZAPINE 15 MG TAB PO SCH (21:14)
[2016-10-15] VITALS: BP 160/93; PULSE 92; RESP 20; TEMP 97.8; O2SAT 99
[2016-10-15] MEDS: RESP: ALBUTEROL 2.5 MG/IPRATROPIUM 0.5 MG NEB (PRN) NEB ×3 (01:56→08:06)
[2016-10-15 04:00] VITALS: BP 155/70; PULSE 88; RESP 20; TEMP 97.9; O2SAT 95
[2016-10-15] MEDS: ALUMINUM/MAGNESIUM/SIMETH 30 ML CUP PO SCH ×2 (05:40→15:42)
[2016-10-15] MEDS: LEVOTHYROXINE SODIUM 50 MCG TAB PO SCH (05:42)
[2016-10-15] MEDS: ALPRAZolam 0.5 MG TAB PO PRN ×3 (05:42→15:40)
[2016-10-15 08:00] VITALS: BP 165/75; PULSE 73; RESP 20; TEMP 97.5; O2SAT 99
[2016-10-15 08:06] VITALS: O2SAT 100
[2016-10-15] MEDS: methylPREDNISolone SOD SUCC 40 MG/1 ML VIAL IV PUSH SCH (08:43)
[2016-10-15] MEDS: FAMOTIDINE 20 MG TAB PO SCH (08:44)
[2016-10-15] MEDS: LIPASE/PROTEASE/AMYLASE (24,000/76,000/120,000) CAP PO SCH ×2 (08:44→11:54)
[2016-10-15] MEDS: METOPROLOL TARTRATE 25 MG TAB PO SCH ×2 (08:44→11:54)
[2016-10-15] MEDS: RIVAROXABAN 20 MG TAB PO SCH (08:44)
[2016-10-15] MEDS: CITALOPRAM HYDROBROMIDE 20 MG TAB PO SCH (08:44)
[2016-10-15] MEDS: QUEtiapine FUMARATE 25 MG TAB PO SCH (08:44)
[2016-10-15] MEDS: POTASSIUM CHLORIDE 10 MEQ CAP PO SCH (08:44)
[2016-10-15] MEDS: FUROSEMIDE 20 MG/2 ML VIAL IV PUSH SCH (08:44)
[2016-10-15] MEDS: SODIUM CHLORIDE 0.9% FLUSH 10 ML FLUSH IV FLUSH SCH (08:44)
[2016-10-15 08:55] VITALS: PULSE 75
--- NOTE | 2016-10-15 11:07 | HHI.PR ---
Subjective Remarks Drowsy but responds to verbal stimuli States she didn't sleep well last night Bowel regimin ok Afebrile No SOB at rest (Brionna Fuentes) Objective Objective Results - Vital Signs Date Time Temp Pulse Resp B/P Pulse Ox O2 Delivery O2 Flow Rate FiO2 10/15/16 08:06 100 Nasal Cannula 2.00 10/15/16 08:00 97.5 73 20 165/75 99 10/15/16 04:00 97.9 88 20 155/70 95 10/15/16 00:00 97.8 92 20 160/93 99 10/14/16 20:14 96 10/14/16 20:00 97.2 87 20 149/76 97 10/14/16 19:15 97 Nasal Cannula 2.00 10/14/16 16:00 98.1 87 20 161/79 95 10/14/16 12:00 98.1 73 20 124/69 97 I/O 10/14/16 10/14/16 10/14/16 10/15/16 10/15/16 10/15/16 07:00 15:00 23:00 07:00 15:00 23:00 Intake Total 202 ml 480 ml 242 ml 1080 ml Output Total 200 ml 1800 ml Balance 202 ml 480 ml 42 ml -720 ml Intake Oral 200 ml 480 ml 240 ml 1080 ml IV Total 2 ml 2 ml Output Urine Total 200 ml 1800 ml # Voids 1 4 # Bowel Movements 2 1 0 (Brionna Fuentes) Result Diagram: 10/14/16 0555 10/14/16 0555 ROS General: Fatigue, Weakness (COPD), Other (10 point ROS done positives noted some fatigue and weakness exertional shortness of breath while regimen normal, insomnia last night, other systems unremarkable ) Pulmonary: SOB (exertional, none noted at rest) GI: Other (bowel regimen normal) Neuro/MS: Other (insomnia last night, but sleeping fine today. Encouraged patient not to get her days and nights mixed up) (Brionna Fuentes) Physical Exam Physical Exam PHYSICAL EXAMINATION GENERAL: This is an obese well-developed, well-nourished female who appears to be in no acute distress at rest She is drowsy, but responds to verbal stimuli HEAD: Normocephalic without any lesion or mass noted. Facial features appear symmetric. OROPHARYNGEAL: Oropharynx without erythema or edema. NECK: Supple. No nuchal rigidity or lymphadenopathy. Trachea midline without deviation. CARDIAC: Regular rhythm, regular rate, S1 and S2 are heard. Murmur none no gallops or rubs. LUNGS: Low volumes to auscultation bilaterally. No wheeze, no rhonchi, diminished at bases. ABDOMEN: Obese, Soft, nontender, no organomegaly or masses. Bowel sounds are heard in all four quadrants. No rebound. No guarding. EXTREMITIES: Trace of pedal edema. Pulses equal bilateral. NEUROLOGICAL: Patient mood and affect okay patient is drowsy, but states she did not sleep well last night SKIN:Warm and moist Objective Remarks I'm doing okay, breathing okay. I didn't sleep good last night (Brionna Fuentes) A/P Assessment and Plan Vital signs reviewed, labs reviewed, Afebrile, pulse respiratory rate and blood pressure within normal range Appetite good COPD exacerbation Continue with oxygen, continuous patient uses home O2. 2.5 L Continue with DuoNeb's Encouraged IV steroids No shortness of breath noted at rest Appreciate pulmonary consult. Anemia, stable probable secondary to chronic disease. Bowel regimen, BM today CHF, acute on chronic, interstitial edema No shortness of breath no active rales heard Responded well to active diurese continue by mouth diuretics Chronic A. fib, stable Continue with Lopressor 25 mg by mouth 3 times a day Patient on Xarelto telemetry, rate controlled Hypertension, stable Continue home medications Depression and anxiety, home meds, Xanax when necessary, would like her dose increased if possible. Encouraged her to discuss with Dr. Caputo Continue with Xarelto for DVT prophylaxis Pepcid for GI prophylaxis Discharge planning initiated, Possibly today Discussed With: Nurse, Family (patient), Other (Dr. Caputo, patient seen on his behalf) (Brionna Fuentes) Assessment and Plan Patient seen and examined as above Medications and labs reviewed Plan of care discussed with [facility] [facility] Discussed with patient Appreciate pulmonary input For discharge today Meds done Follow-up explained Time spent and DC planning and management of this patient is more than 45 minutes (Alistair Caputo MD) Brionna Fuentes Oct 15, 2016 11:07 Alistair Caputo MD Oct 15, 2016 13:25
[2016-10-15 12:00] VITALS: BP 169/96; PULSE 86; RESP 20; TEMP 98.2; O2SAT 98
[2016-10-15] MEDS ORDERED: PRED10PA PO (12:21)
--- NOTE | 2016-10-15 12:28 | HHI.FF ---
Face to Face Verification Diagnosis: (1) SOB (shortness of breath) (2) Anxiety (3) COPD exacerbation (4) COPD (chronic obstructive pulmonary disease) (5) Hypothyroidism (6) Depression with anxiety Home Health Nursing Order: Medical education Medication education-adverse effect Nursing assessment with vital signs I have seen patient Lynnette Tillman on 10/15/16. My clinical findings support the need for the requested home health care services because: Ltd mobility - disease progression I certify that my clinical findings support that this patient is homebound because: Hx COPD- exertion dyspnea/weakness Unable to use public transportation Alistair Caputo MD Oct 15, 2016 12:28
[2016-10-15] MEDS: RESP: ALBUTEROL 1.25 MG/3 ML NEB (PRN) NEB (12:29)
--- NOTE | 2016-10-15 13:07 | PD.PN.STU ---
Subjective Remarks Patient better. Sitting up in bed talking. Feels anxious, requesting anxiety meds. On [place] O2 2L, no SOB. Objective Vitals Vital Signs Date Time Temp Pulse Resp B/P Pulse Ox O2 Delivery O2 Flow Rate FiO2 10/15/16 08:55 75 10/15/16 08:06 100 Nasal Cannula 2.00 10/15/16 08:00 97.5 73 20 165/75 99 10/15/16 04:00 97.9 88 20 155/70 95 10/15/16 00:00 97.8 92 20 160/93 99 10/14/16 20:14 96 10/14/16 20:00 97.2 87 20 149/76 97 10/14/16 19:15 97 Nasal Cannula 2.00 10/14/16 16:00 98.1 87 20 161/79 95 I/O 10/14/16 10/14/16 10/14/16 10/15/16 10/15/16 10/15/16 07:00 15:00 23:00 07:00 15:00 23:00 Intake Total 202 ml 480 ml 242 ml 1080 ml Output Total 200 ml 1800 ml Balance 202 ml 480 ml 42 ml -720 ml Intake Oral 200 ml 480 ml 240 ml 1080 ml IV Total 2 ml 2 ml Output Urine Total 200 ml 1800 ml # Voids 1 4 # Bowel Movements 2 1 0 Result Diagram: 10/14/16 0510/14/16 0555 Objective Remarks GENERAL: This elderly white female, no acute distress. Feels anxious. HEENT: Head normocephalic. Pupils are reactive. Tongue moist. Nasal mucosa injected. Ears - no inflammation. Throat - clear. NECK: Supple. No lymphadenopathy. Trachea midline. CHEST: Equal movements, prolonged expirations. Diminished breath sounds over the right lung [place] with occasional wheezes bilaterally. HEART: The heart sounds are irregular. S1-S2. No murmur. No S3. ABDOMEN: Soft, benign. No masses or organomegaly or tenderness. Bowel sounds are active. EXTREMITIES: Mild varicosities and diminished peripheral pulses. No edema.. NEUROLOGIC: Reflexes are 1+ with no gross motor deficits. Cranial nerves are grossly intact. A/P Assessment and Plan IMPRESSION 1. COPD with acute exacerbation. 2. Pulmonary edema, resolving. 3. History of non-small cell lung CA. 4. History of atrial arrhythmias. 5. History of DVT Plan : 1. Continue solumedrol to 20 mg bid. 2. Nebs qid , duoneb. 3. Cont Xarelto 20 mg . 4. Cont Diuretic daily. 5. Home soon. Jessica Cooper M3 Oct 15, 2016 13:07
--- NOTE | 2016-10-15 17:33 | HHI.DS ---
Discharge Summary Admission Date Oct 13, 2016 at 03:57 Admitting Diagnosis CHF/COPD exacerbation (1) COPD (chronic obstructive pulmonary disease) Diagnosis: Principal (2) COPD exacerbation Diagnosis: Principal (3) Dyspnea Diagnosis: Secondary (4) Depression with anxiety Diagnosis: Secondary (5) HTN (hypertension) Diagnosis: Principal (6) History of OH (myocardial infarction) Diagnosis: Secondary (7) CAD (coronary artery disease) Diagnosis: Secondary (8) Hypothyroidism Diagnosis: Secondary (9) Atrial fibrillation Diagnosis: Secondary (10) CHF (congestive heart failure) Diagnosis: Secondary Brief History This was a pleasant 71 year-old female with significant past medical history of COPD oxygen dependent, 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 fib, depression, anxiety, hypertension. Patient had frequent hospitalizations and ER visits for COPD exacerbation and chest discomfort. Was recently seen here at the chest pain center and discharge. Patient returned to the emergency room complained of increasing shortness of breath for the last 4 days. Patient has had increased wheezing, has been using nebulizers without any relief. Patient has noted increased dyspnea with exertion, no leg swelling, no chest pain, no lightheadedness, no palpitations. She had a cough, very little sputum. Denies any fever, no chills. Patient lived alone, has home health care services and physical therapy. Chest X-Ray 10/13/16 0106 Signed Impressions: Service Date/Time: Thursday, October 13, 2016 01:48 - CONCLUSION: 1. Opacification of the right hemithorax, stable. Mild left basilar airspace disease. Nhi B-lines on the left suggest interstitial edema. Kavin Pak MD Patient was given DuoNeb's. Indicates she is feeling much better. She wants to know if she is going home today. 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 Patient is complaining of anxiety, requesting Xanax. Patient is admitted for further evaluation and treatment. CBC/BMP: 10/14/16 0555 10/14/16 0555 Significant Findings Laboratory Tests Test 10/13/16 10/13/16 10/13/16 10/14/16 01:00 07:33 14:14 05:55 Red Blood Count 3.42 MIL/MM3 3.40 MIL/MM3 (4.00-5.30) (4.00-5.30) Hemoglobin 10.2 GM/DL 10.0 GM/DL (11.6-15.3) (11.6-15.3) Hematocrit 30.5 % 29.8 % (35.0-46.0) (35.0-46.0) Platelet Count 146 TH/MM3 (150-450) Prothrombin Time 12.1 SEC (9.8-11.6) Activated Partial 31.9 SEC Thromboplast Time (24.3-30.1) Sodium Level 131 MEQ/L 134 MEQ/L (136-145) (136-145) Chloride Level 97 MEQ/L (98-107) Estimat Glomerular Filtration 69 ML/MIN (>89) 75 ML/MIN (>89) Rate Troponin I 0.06 NG/ML 0.07 NG/ML 0.07 NG/ML (0.02-0.05) (0.02-0.05) (0.02-0.05) B-Type Natriuretic Peptide 111 PG/ML (0-100) Neutrophils (%) (Auto) 87.2 % (16.0-70.0) Lymphocytes # (Auto) 0.5 TH/MM3 (1.0-4.8) Random Glucose 128 MG/DL (74-106) PE at Discharge GENERAL: This was an obese well-developed, well-nourished female who appeared to be in no acute distress at rest She was drowsy, but responds to verbal stimuli . Didnt sleep well last night. HEAD: Normocephalic without any lesion or mass noted. Facial features appear symmetric. OROPHARYNGEAL: Oropharynx without erythema or edema. NECK: Supple. No nuchal rigidity or lymphadenopathy. Trachea midline without deviation. CARDIAC: Regular rhythm, regular rate, S1 and S2 are heard. Murmur none no gallops or rubs. LUNGS: Low volumes to auscultation bilaterally. No wheeze, no rhonchi, diminished at bases. ABDOMEN: Obese, Soft, nontender, no organomegaly or masses. Bowel sounds are heard in all four quadrants. No rebound. No guarding. EXTREMITIES: Trace of pedal edema. Pulses equal bilateral. NEUROLOGICAL: Patient mood and affect okay patient is drowsy, but states she did not sleep well last night SKIN:Warm and moist Hospital Course Patient evaluated in emergency room, laboratory workup is essentially unremarkable. There was mild elevation in BNP- 111. Chest x-ray Last Impressions Vital signs reviewed, labs reviewed, throughout hospital course. CXR Afebrile, pulse respiratory rate and blood pressure within normal range Appetite good COPD exacerbation Continue with oxygen, continuous patient uses home O2. 2.5 L Continue with DuoNeb's Encouraged IV steroids No shortness of breath noted at rest Appreciate pulmonary consult. , , emperic antibiotic therapy, Anemia, stable probable secondary to chronic disease. Bowel regimen, BM today, Patient recieved win softeners and Prn laxatives as warrented through her stay. CHF, acute on chronic, interstitial edema, No shortness of breath no active rales heard, Patient continued to improve with aggressive treatment of IV lasix, O2 therapy. Patient had active diuresis, which controlled her CHF. Responded well to active diurese continue by mouth diuretics Chronic A. fib, stable Continue with Lopressor 25 mg by mouth 3 times a day Patient on Xarelto telemetry, rate controlled Hypertension, stable Continue home medications Depression and anxiety, home meds, Xanax when necessary, would like her dose increased if possible. Encouraged her to discuss with Dr. Caputo Continue with Xarelto for DVT prophylaxis Pepcid for GI prophylaxis Discharge planning for patient safety, seen per MD and Heidi day of discharge and felt she was safe to return home with home health. Discussed in detail per Dr. Caputo. Pt Condition on Discharge: Good Discharge Disposition: Disch w/ Home Health Serv Discharge Instructions DIET: Follow Instructions for: Heart Healthy Diet Activities you can perform: Weight Bearing as Brionna Callahan Oct 15, 2016 17:33
== END 2016-10-15 16:15 ==
LOC: NEPC 00:34 → OBSVTOIN 03:57 → INTOOBSV 03:57 → NEDA 03:57 → NEDH 08:10 → N04A 13:09
PROVIDERS: ADMIT Specialist; ATTEND Specialist
DX: J44.1 Chronic obstructive pulmonary disease with (acute) exacerbation (principal); I11.0 Hypertensive heart disease with heart failure; I50.23 Acute on chronic systolic (congestive) heart failure; I25.10 Atherosclerotic heart disease of native coronary artery without angina pectoris; I25.2 Old myocardial infarction; I48.2 Chronic atrial fibrillation; D64.9 Anemia, unspecified; F03.90 Unspecified dementia, unspecified severity, without behavioral disturbance, psychotic disturbance, mood disturbance, and anxiety; E03.9 Hypothyroidism, unspecified; F41.8 Other specified anxiety disorders; Z87.01 Personal history of pneumonia (recurrent); Z79.01 Long term (current) use of anticoagulants; Z85.118 Personal history of other malignant neoplasm of bronchus and lung; Z99.81 Dependence on supplemental oxygen; Z92.3 Personal history of irradiation; Z92.21 Personal history of antineoplastic chemotherapy; Z86.718 Personal history of other venous thrombosis and embolism; Z88.0 Allergy status to penicillin; Z88.2 Allergy status to sulfonamides; Z88.8 Allergy status to other drugs, medicaments and biological substances; Z88.1 Allergy status to other antibiotic agents; Z91.010 Allergy to peanuts
CPT/HCPCS: 71020; 80048; 80053; 83880; 84484; 85025; 85610; 85730; 93005; 94640; 94664; 99285; G0378; J1644; J1940; J2920; J7613

== ENCOUNTER 2016-10-16 00:49 | Inpatient (IN) | payer MEDICARE, MEDICAID ==
[~2016-10-16] VITALS: Ht 160 cm; Wt 77.5 kg
[2016-10-16] VITALS (21 sets, daily range): BP systolic 125–232; BP diastolic 60–119; PULSE 69–104; RESP 2–26; TEMP 98–98.9; O2SAT 25–100
[~2016-10-16 00:49] MED LIST changes: +PRED10PA PO
[2016-10-16] MEDS ORDERED: SODIUM CHLORIDE 0.9% FLUSH 10 ML FLUSH IVF PRN (01:15)
[2016-10-16] MEDS ORDERED: LORazepam 2 MG/ML VIAL IV PUSH ONE (01:15)
[2016-10-16] MEDS ORDERED: ETOMIDATE 20 MG/10 ML VIAL ONE (01:24)
[2016-10-16] MEDS ORDERED: ROCURONIUM INJ 50 MG/5 ML VIAL ONE (01:25)
--- NOTE | 2016-10-16 01:25 | RADRPT ---
EXAM DATE/TIME: 10/16/2016 01:19 [facility] COMPARISON: CHEST PA & LAT, October 13, 2016, 1:48. CHEST SINGLE AP, September 02, 2016, 21:19. INDICATIONS : Respiratory distress. MEDICAL HISTORY : Carcinoma, lung. SURGICAL HISTORY : Right lung surgery. ENCOUNTER: Initial ACUITY: 1 day PAIN SCORE: Non-responsive. LOCATION: Bilateral chest FINDINGS: Portable upright AP view of the chest is degraded by motion artifact. There is near-complete opacific ation of the right hemithorax with rightward shift of the trachea. There is possible mild interstitia l versus air space opacity at the left lung base. No pneumothorax is visualized. CONCLUSION: Examination quality is significantly degraded by motion artifact. There is complete opacification of the right hemithorax. Questionable changes of the left lung base may represent interstitial versus ai r space opacity. Hasmukh Willett MD on October 16, 2016 at 1:22 Board Certified Radiologist. This report was verified electronically.
[2016-10-16 01:27] LABS: AUTOMATED NEUTROPHIL # 11.8 TH/MM3 (1.8-7.7); BASOPHIL % 0.2 % (0.0-2.0); EOSINOPHIL # 0.1 TH/MM3 (0-0.4); EOSINOPHIL % 0.3 % (0.0-4.0); HEMATOCRIT 36.5 % (35.0-46.0); HEMO FLAGS DIFF FINAL; LYMPHOCYTE # 2.4 TH/MM3 (1.0-4.8); MEAN CELL VOLUME 88.6 FL (80.0-100.0); MEAN CORPUSCULAR HEMOGLOBIN 28.8 PG (27.0-34.0); MEAN CORPUSCULAR HGB CONC 32.5 % (32.0-36.0); NEUT % 75.5 % (16.0-70.0); PLATELET COUNT 232 TH/MM3 (150-450); RED BLOOD COUNT 4.12 MIL/MM3 (4.00-5.30); RED CELL DISTRIBUTION WIDTH 15.2 % (11.6-17.2); WHITE BLOOD COUNT 15.7 TH/MM3 (4.0-11.0)
[2016-10-16 01:36] LABS: APTT (PATIENT) 25.9 SEC (24.3-30.1)
[2016-10-16] MEDS: RESP: ALBUTEROL 2.5 MG/3 ML NEB (SCH) INH (01:38)
--- NOTE | 2016-10-16 01:50 | PD ---
HPI Chief Complaint: Respiratory Distress Time Seen by Provider: 01:01 Travel History International Travel<30 days: No Contact w/Intl Traveler<30days: No Traveled to known affect area: No History of Present Illness HPI 71yo F with PMH of COPD on home O2 2.5 liters, CAD, small cell lung CA 2004 underwent chemo and radiation, afib on xarelto, depression, anxiety presents to the ED in respiratory distress. Pt states she has been sob since discharge today. Denies any fever, chest pain, abdominal pain. Pt was given duonebs x3 by [facility]. Pt was very tachypneic and saturating in the 80s when she arrived. Pt was immediately placed on BIPAP and doing better. However, pt was very anxious and was pulling off her BIPAP. Ativan 1mg IV given and she feels better and now able to tolerate BIPAP. PFSH Past Medical History Medical History: Unable to Obtain Hx Anticoagulant Therapy: Yes (XARELTO) Arthritis: Yes (HANDS) Asthma: No Atrial Fibrillation: Yes Autoimmune Disease: No Blood Disorders: No Anxiety: Yes Depression: Yes Heart Rhythm Problems: Yes Cancer: Yes (HX LUNG CA) Cardiac Catheterization: Yes Cardiovascular Problems: Yes (HBP) High Cholesterol: No Chemotherapy: Yes (HX) Chest Pain: Yes Congestive Heart Failure: Yes COPD: Yes Cerebrovascular Accident: No Coronary Artery Disease: Yes Diabetes: No Diminished Hearing: No Endocrine: No Fibromyalgia: Yes Gastrointestinal Disorders: Yes GERD: Yes Glaucoma: No Genitourinary: No Headaches: Yes Hepatitis: No Hiatal Hernia: No Heparin Induced Thrombocytopen: No Hypertension: No Immune Disorder: No Implanted Vascular Access Dvce: No Kidney Stones: No Medical other: Yes (ARTHRITIS,DIZZINESS) Musculoskeletal: Yes Neurologic: No Psychiatric: Yes Reproductive: No Respiratory: Yes (COPD) Immunizations Current: Yes Migraines: No Myocardial Infarction: Yes (X2) Pneumonia: Yes Radiation Therapy: Yes Renal Failure: No Seizures: No Sickle Cell Disease: No Sleep Apnea: No Thyroid Disease: Yes Ulcer: No Menopausal: Yes : 1 Para: 1 Miscarriage: 0 : 0 Past Surgical History Surgical History: Unable to Obtain Abdominal Surgery: Yes AICD: No Arteriovenous Shunt: No Body Medical Devices: Neck stent Cardiac Surgery: No Section: No Cholecystectomy: Yes Ear Surgery: No Endocrine Surgery: No Eye Surgery: No Genitourinary Surgery: No Gynecologic Surgery: No Insulin Pump: No Joint Replacement: No Neurologic Surgery: No Oral Surgery: No Pacemaker: No Thoracic Surgery: No Other Surgery: Yes (POLYPS REMOVED FROM LARYNX; ENDOSCOPY) Social History Alcohol Use: No Tobacco Use: No Substance Use: No Allergies-Medications (Allergen,Severity, Reaction): Coded Allergies: Adhesives (Verified Allergy, Severe, RASK, 07/29/16) skin breakdown Calcium Channel Blockers (Verified Allergy, Severe, DIFFICULTY BREATHING, 07/29/16) Entex LA (Verified Allergy, Severe, Anaphylaxis, 07/29/16) Marcaine (Verified Allergy, Severe, DIFFICULTY BREATHING, 10/13/16) Minocin (Verified Allergy, Severe, DIFFICULTY BREATHING, 10/13/16) Nonsteroidal Anti-Inflammatory Agts (Verified Allergy, Severe, DIFFICULTY BREATHING, 10/13/16) PEANUTS (Verified Allergy, Severe, lips swelling, 10/13/16) Penicillin (Verified Allergy, Severe, DIFFICULTY BREATHING, 10/13/16) Prilosec (Verified Allergy, Severe, DIFFICULTY BREATHING, 10/13/16) Promethazine (Verified Allergy, Severe, DIFFICULTY BREATHING, 10/13/16) Sulfa (Verified Allergy, Severe, DIFFICULTY BREATHING, 10/13/16) Prednisone (Verified Allergy, Intermediate, rash and lips swell, 10/13/16) Zyrtec (Verified Allergy, Intermediate, rash, 10/13/16) Vancomycin (Verified Allergy, Mild, Flushing, 10/17/16) lips tingling Zyprexa (Verified Adverse Reaction, Severe, Severe vomiting., 10/13/16) Fluticasone (Verified Adverse Reaction, Intermediate, Rawness of the skin around the nose. Inhaled steroids do , 10/13/16) the same to her mouth. Omeprazole (Verified Adverse Reaction, Intermediate, [place] funny, 10/13/16) Zithromax (Verified Adverse Reaction, Intermediate, Says it made her jittery and it was harder to breathe. 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 Not sure would get same reaction to Injectable. Lian Huber MD. Klonapen (Adverse Reaction, Severe, Caused amnesia and a fall. , 07/10/13) Reported Meds & Prescriptions Reported Meds & Active Scripts Active Prednisone (21) 10 mg tab Dose Pack (Prednisone) 10 Mg Pack 10 Mg PO DIRECTED Hydrocodone-Acetaminophen 5-325 mg Tab 1 Tab PO Q4H PRN Xanax (Alprazolam) 0.5 Mg Tab 0.5 Mg PO Q8H PRN Xarelto (Rivaroxaban) 15 Mg Tab 20 Mg PO DAILY Quetiapine (Quetiapine Fumarate) 25 Mg Tab 25 Mg PO BID Creon (Amylase/Lipase/Protease) 24,000-76,000-120,000 Units Cap 1 Cap PO TID Celexa (Citalopram Hydrobromide) 20 Mg Tab 40 Mg PO DAILY Reported Metoprolol Tartrate 25 Mg Tab 25 Mg PO TID Ipratropium [place] 1 Pow Pow 0.5 Mg NEB TID Levothyroxine (Levothyroxine Sodium) 50 Mcg Tab 50 Mcg PO DAILY Zantac 150 Maximum Strength (Ranitidine HCl) 150 Mg Tab 150 Mg PO BID Mylanta Liq (Egmjjnkt-Nrwnzxpwb-Lijrmtpzlmb Liq) 200-200-20 Mg/5 Ml Susp 30 Ml PO Q8HR Take between meals or as directed. Shake well. Maximum 120 ml/24 hrs. Potassium Chloride ER (Potassium Chloride) 10 Meq Cap 10 Meq PO DAILY Review of Systems Except as stated in HPI: all other systems reviewed are Neg Physical Exam Narrative GENERAL: 71yo F in distress. SKIN: Focused skin assessment warm/dry. HEAD: Atraumatic. Normocephalic. NECK: Trachea midline. No JVD. CARDIOVASCULAR: Mild tachycardic. No murmur appreciated. RESPIRATORY: + accessory muscle use. Wheezing bilaterally. Tachypneic. GASTROINTESTINAL: Abdomen soft, non-tender, nondistended. Hepatic and splenic margins not palpable. MUSCULOSKELETAL: No obvious deformities. No clubbing. No cyanosis. No edema. NEUROLOGICAL: Awake and alert. No obvious cranial nerve deficits. Motor grossly within normal limits. Normal speech. PSYCHIATRIC: Appropriate mood and affect; insight and judgment normal. Data Data Last Documented VS Vital Signs Date Time Temp Pulse Resp B/P Pulse Ox O2 Delivery O2 Flow Rate FiO2 10/16/16 03:08 101 20 135/82 100 BiPAP 10/16/16 01:05 50 10/16/16 00:52 98.9 Orders Lorazepam Inj (Ativan Inj) (10/16/16 01:15) Complete Blood Count With Diff (10/16/16 01:03) Basic Metabolic Panel (Bmp) (10/16/16 01:03) B-Type Natriuretic Peptide (10/16/16 01:03) Act Partial Throm Time (Ptt) (10/16/16 01:03) Prothrombin Time / Inr (Pt) (10/16/16 01:03) Ckmb (Isoenzyme) Profile (10/16/16 01:03) Troponin I (10/16/16 01:03) Iv Access Insert/Monitor (10/16/16 01:03) Electrocardiogram (10/16/16 01:03) Ecg Monitoring (10/16/16 01:03) Oximetry (10/16/16 01:03) Oxygen Administration (10/16/16 01:03) Chest, Single Ap (10/16/16 01:03) Sodium Chloride 0.9% Flush (Ns Flush) (10/16/16 01:15) Resp Bipap / Cpap Non Invas Vt (10/16/16 01:03) Etomidate Inj (Amidate Inj) (10/16/16 01:24) Rocuronium Inj (Zemuron Inj) (10/16/16 01:25) Albuterol Neb (Albuterol Neb) (10/16/16 01:30) Lactic Acid Sepsis Protocol (10/16/16 02:16) Vancomycin Inj (Vancomycin Inj) (10/16/16 02:30) Aztreonam Inj (Azactam Inj) (10/16/16 02:30) Blood Culture (10/16/16 02:18) Arterial Blood Gas (Abg) (10/16/16 02:14) CKMB (10/16/16 01:11) CKMB% (10/16/16 01:11) Legionella Urinary Antigen (10/16/16 02:52) Urinalysis - C+S If Indicated (10/16/16 02:58) Admit Order (Ed Use Only) (10/16/16 03:11) Labs Laboratory Tests Test 10/16/16 10/16/16 10/16/16 01:11 02:14 02:53 White Blood Count 15.7 TH/MM3 Red Blood Count 4.12 MIL/MM3 Hemoglobin 11.9 GM/DL Hematocrit 36.5 % Mean Corpuscular Volume 88.6 FL Mean Corpuscular Hemoglobin 28.8 PG Mean Corpuscular Hemoglobin 32.5 % Concent Red Cell Distribution Width 15.2 % Platelet Count 232 TH/MM3 Mean Platelet Volume 7.8 FL Neutrophils (%) (Auto) 75.5 % Lymphocytes (%) (Auto) 15.0 % Monocytes (%) (Auto) 9.0 % Eosinophils (%) (Auto) 0.3 % Basophils (%) (Auto) 0.2 % Neutrophils # (Auto) 11.8 TH/MM3 Lymphocytes # (Auto) 2.4 TH/MM3 Monocytes # (Auto) 1.4 TH/MM3 Eosinophils # (Auto) 0.1 TH/MM3 Basophils # (Auto) 0.0 TH/MM3 CBC Comment DIFF FINAL Differential Comment Prothrombin Time 11.0 SEC Prothromb Time International 1.0 RATIO Ratio Activated Partial 25.9 SEC Thromboplast Time Sodium Level 123 MEQ/L Potassium Level 4.2 MEQ/L Chloride Level 89 MEQ/L Carbon Dioxide Level 25.1 MEQ/L Anion Gap 9 MEQ/L Blood Urea Nitrogen 20 MG/DL Creatinine 0.83 MG/DL Estimat Glomerular Filtration 68 ML/MIN Rate Random Glucose 111 MG/DL Calcium Level 9.6 MG/DL Total Creatine Kinase 109 U/L Creatine Kinase MB 3.0 NG/ML Troponin I 0.04 NG/ML B-Type Natriuretic Peptide 472 PG/ML Thyroid Stimulating Hormone 1.090 uIU/ML 3rd Gen Blood Gas Puncture Site RT RADIAL Blood Gas Patient Temperature 98.6 Blood Gas HCO3 29 mmol/L Blood Gas Base Excess 2.8 mmol/L Blood Gas Oxygen Saturation 95 % Arterial Blood pH 7.31 Arterial Blood Partial 58 mmHg Pressure CO2 Arterial Blood Partial 92 mmHG Pressure O2 Arterial Blood Oxygen Content 14.6 Vol % Arterial Blood 1.0 % Carboxyhemoglobin Arterial Blood Methemoglobin 0.2 % Blood Gas Hemoglobin 10.8 G/DL Oxygen Delivery Device BiPAP Blood Gas Ventilator Setting IPAP12/EPAP6 Blood Gas Inspired Oxygen 40 % Lactic Acid Level 0.8 mmol/L MDM Medical Decision Making Medical Screen Exam Complete: Yes Emergency Medical Condition: Yes Interpretation(s) EKG: Afib at 123bpm. Differential Diagnosis COPD exacerbation vs. CHF exacerbation vs. Pneumonia Narrative Course 71yo F with COPD, lung CA, CHF here in respiratory distress. Labs reviewed, leukocytosis at 15.7. Hyponatremia of 123. BUN elevated at 20. BNP 472. CXR showed complete opacification of right hemithorax and questionable changes of the left lung base may represent interstitial versus air space opacity. Pt also had right lung opacity from prior CXR. I gave pt vancomycin and aztreonam to cover HCAP given pt's leukocytosis and increase left lung opacity. ABG showed respiratory acidosis with pH 7.31 and pCO2 58. Pt doing much better on BIPAP now. Discussed with Dr. Zamarripa and accepted to the ICU under her service. Critical Care Narrative Aggregate critical care time was 50 minutes. Time to perform other separately billable procedures was not included in the critical care time. My time did not include minutes spent treating any other patients simultaneously or on activities that did not directly contribute to the patient's treatment. The services I provided to this patient were to treat and/or prevent clinically significant deterioration that could result in: cardiovascular collapse or . I provided critical care services requiring my management, as noted below: Chart data review, documentation time, medication orders and management, vital sign assessments/reviewing monitor data, ordering and reviewing lab tests, ordering and interpreting/reviewing x-rays and diagnostic studies, care of the patient and discussion of the patient with the admitting physicians. Diagnosis Primary Impression: Acute respiratory failure with hypoxia and hypercapnia Admitting Information Admitting Physician Requests: it Tejal Valencia DO Oct 16, 2016 01:49
[2016-10-16 01:58] LABS: ANION GAP 9 MEQ/L (5-15); BICARBONATE 25.1 MEQ/L (21.0-32.0); BLOOD UREA NITROGEN 20 MG/DL (7-18); CHLORIDE 89 MEQ/L (98-107); CREATINE KINASE 109 U/L (26-192); GLOMERULAR FILTRATION RATE 68 ML/MIN (>89)
[2016-10-16 02:23] LABS: BLOOD GAS BASE EXCESS 2.8 mmol/L (-2-2); BLOOD GAS HCO3 29 mmol/L (22-26); BLOOD GAS METHEMOGLOBIN 0.2 % (0-2); BLOOD GAS O2 HGB SATURATION 95 % (90-100); BLOOD GAS OXYGEN CONTENT 14.6 Vol % (12.0-20.0); BLOOD GAS PCO2 58 mmHg (38-42); BLOOD GAS PO2 92 mmHG (61-120); BLOOD GAS TOTAL HGB 10.8 G/DL (12.0-16.0); CRITICAL VALUE YES; DRAW SITE RT RADIAL; FIO2 40 %; NUMBER OF ARTERIAL PUNCTURES 1; OXYGEN DEVICE BiPAP; TEMP CORR TO 98.6; ULNAR PULSE PRESENT; VENT SETTINGS IPAP12/EPAP6
[2016-10-16 02:24] LABS: STAT YES
[2016-10-16 02:28] LABS: POTASSIUM 4.2 MEQ/L (3.5-5.1)
[2016-10-16 02:29] LABS: SODIUM (NA) 123 MEQ/L (136-145)
[2016-10-16] MEDS ORDERED: VANCOMYCIN INJ 1,200 MG in SODIUM CHLOR 0.9% 250 ML INJ 250 ML IV ONE (02:30)
[2016-10-16] MEDS ORDERED: AZTREONAM INJ 2,000 MG in SODIUM CHLORIDE 0.9% INJ 100 ML IV ONE (02:30)
[2016-10-16] MEDS ORDERED: MISCELLANEOUS NURSING INFORMATION XX SCH (03:30)
[2016-10-16] MEDS ORDERED: CHLORHEXIDINE GLUCONATE 2 % 1 PACK (2 CLOTHS) TOP PRN (03:30)
[2016-10-16] MEDS ORDERED: Vancomycin Consult Pharmacy 1 EA OTHER SCH (03:30)
[2016-10-16] MEDS ORDERED: ACETAMINOPHEN 325 MG TAB PO PRN (03:30)
[2016-10-16] MEDS ORDERED: ONDANSETRON HCL 4 MG/2 ML VIAL IV PRN (03:30)
[2016-10-16] MEDS: RESP: ALBUTEROL 2.5 MG/IPRATROPIUM 0.5 MG NEB (SCH) INH ×6 (03:56→23:29)
[2016-10-16] MEDS: CHLORHEXIDINE GLUCONATE 2 % 1 PACK (2 CLOTHS) TOP SCH (04:00)
[2016-10-16] MEDS ORDERED: HEPARIN SODIUM - SQ 10,000 UNITS/ML VIAL SQ SCH (05:00)
[2016-10-16 06:03] LABS: BLOOD, URINE NEG (NEG); COMMENT (UR) CATH-CULT NOT IND; CULTURE IF INDICATED CATH CULTURE NOT IND; GLUCOSE,URINE NEG (NEG); KETONE, URINE NEG (NEG); NITRITE,URINE NEG (NEG); URINE COLOR COLORLESS (YELLW/STRAW)
--- NOTE | 2016-10-16 07:40 | HHI.HP ---
HPI Service Critical Care Medicine Primary Care Physician Unknown Admission Diagnosis Acute hypoxic and hypercapnic respiratory failure Diagnosis: Travel History International Travel<30 Days: No Contact w/Intl Traveler <30 Da: No Traveled to Known Affected Are: No History of Present Illness 71 year-old female with significant past medical history of COPD on 3 L home oxygen, small cell lung cancer in 2003 treated w/ chemotherapy and radiation with subsequent chronic opacification of R lung, CAD status post RI 2 ,atrial fibrillation fib,hypertension, dementia. She was recently admitted to [facility] 10/13-10/15 for wheezing. She was diuresed and treated with nebs and steroids. She returns to [facility] on 10/16 with SOB. Given duonebs x3 per EVAC and was reportedly tachypneic with significant wheezing upon arrival to ED. Denies fever, chills, chest pain. She was placed on BiPAP 12/5 30%. Was initially not tolerating BiPAP and intubation was contemplated however she was administered Ativan 1 mg IV and then was able to tolerate BiPAP and appeared much improved. Reportedly wheezing significantly improved after nebs in the ED. Chest x-ray shows chronic opacification of the right lung. There is left basilar air space disease. Review of Systems ROS Limitations: Clinical Condition Past Family Social History Allergies: Coded Allergies: Adhesives (Verified Allergy, Severe, RASK, 07/29/16) skin breakdown Calcium Channel Blockers (Verified Allergy, Severe, DIFFICULTY BREATHING, 07/29/16) Entex LA (Verified Allergy, Severe, Anaphylaxis, 07/29/16) Marcaine (Verified Allergy, Severe, DIFFICULTY BREATHING, 10/13/16) Minocin (Verified Allergy, Severe, DIFFICULTY BREATHING, 10/13/16) Nonsteroidal Anti-Inflammatory Agts (Verified Allergy, Severe, DIFFICULTY BREATHING, 10/13/16) PEANUTS (Verified Allergy, Severe, lips swelling, 10/13/16) Penicillin (Verified Allergy, Severe, DIFFICULTY BREATHING, 10/13/16) Prilosec (Verified Allergy, Severe, DIFFICULTY BREATHING, 10/13/16) Promethazine (Verified Allergy, Severe, DIFFICULTY BREATHING, 10/13/16) Sulfa (Verified Allergy, Severe, DIFFICULTY BREATHING, 10/13/16) Prednisone (Verified Allergy, Intermediate, rash and lips swell, 10/13/16) Zyrtec (Verified Allergy, Intermediate, rash, 10/13/16) Zyprexa (Verified Adverse Reaction, Severe, Severe vomiting., 10/13/16) Fluticasone (Verified Adverse Reaction, Intermediate, [place] of the skin around the nose. Inhaled steroids do , 10/13/16) the same to her mouth. Omeprazole (Verified Adverse Reaction, Intermediate, [place] funny, 10/13/16) Zithromax (Verified Adverse Reaction, Intermediate, Says it made her jittery and it was harder to breathe. 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 Not sure would get same reaction to Injectable. Lian Huber MD. Jacob (Adverse Reaction, Severe, Caused amnesia and a fall. , 07/10/13) Past Medical History Hypertension COPD Esophageal stricture Small cell lung cancer status post radiation chemotherapy Depression Anxiety Atrial fibrillation on chronic anticoagulation with xarelto CAD with prior RI x2 Hypothyroidism Past Surgical History Vocal Cord Polypectomy ' Breast Bx Laparoscopic Choly Esophageal Dilations Recurrent PortaCath Removed in 11/24 Cardiac Cath: ' Dr Urbina Normal Coronaries. Bilateral Cataracts ' Permanent IVC filter placed 08/30 Rhinolaryngoscopy 2011 Cardiac Cath 01/26 Dr Essie Paz at [facility] Permanent IVC filter placed 08/30 EGD and Colonoscopy at [facility] 08/30 S/P bronch, lung bx 07/03/2016, benign squamous metaplasia Reported Medications Prednisone 10 mg by mouth daily Mylanta 30 ML by mouth every 8 hours Xarelto 20 mill grams by mouth daily Celexa 40 mg by mouth daily Ipratropium 0.5 mg neb 3 times a day Quetiapine 25 mill grams by mouth twice a day Xanax 0.5 mg by mouth every 8 hours when necessary Metoprolol 25 mill grams by mouth 3 times a day Creon one tab by mouth 3 times a day Zantac 150 mill grams by mouth twice a day Lortab 5/325 one by mouth every 4 hours when necessary pain Potassium chloride 10 mg by mouth daily Synthroid 50 mics grams by mouth daily Family History Unable to obtain secondary to patient's clinical condition Social History Lives at home alone. Has home health services. Is a former smoker who quit in the Alcohol or illicit drug use Physical Exam Vital Signs Vital Signs Date Time Temp Pulse Resp B/P Pulse Ox O2 Delivery O2 Flow Rate FiO2 10/16/16 06:13 98.6 103 20 187/98 93 10/16/16 04:36 81 12 152/71 95 BiPAP 10/16/16 04:01 98 30 10/16/16 03:08 101 20 135/82 100 BiPAP 10/16/16 01:05 80 Room Air 10/16/16 01:05 98 BiPAP 50 10/16/16 00:55 94 40 10/16/16 00:52 98.9 104 26 232/119 80 Physical Exam Temp 98.6 Pulse 85, atrial fibrillation blood pressure 155/72 sats 99% on BiPAP 12 over 5 respiratory rate of 14 getting tidal volumes of 520 GENERAL: Chronically ill-appearing obese female who is sitting up in [facility] [place] on BiPAP. SKIN: Warm and dry. HEAD: Atraumatic. Normocephalic. EYES: Pupils 2 mm and reactive. No scleral icterus. No injection or drainage. ENT: BiPAP mask in place NECK: Trachea midline. CARDIOVASCULAR: Irregular. No murmurs rubs or gallops appreciated. RESPIRATORY: Diminished breath sounds right lung field. Rales left base. Breathing comfortably on BiPAP without accessory muscle use. GASTROINTESTINAL: Abdomen soft, non-tender, nondistended. Bowel sounds present : [place] in place with light yellow urine output. MUSCULOSKELETAL: Extremities without clubbing, cyanosis. There is trace bipedal edema. NEUROLOGICAL: Awakens to voice and makes eye contact. Moves all extremities without apparent focal deficit Laboratory Laboratory Tests Test 10/16/16 10/16/16 10/16/16 10/16/16 01:11 02:14 02:53 05:30 White Blood Count 15.7 Red Blood Count 4.12 Hemoglobin 11.9 Hematocrit 36.5 Mean Corpuscular Volume 88.6 Mean Corpuscular Hemoglobin 28.8 Mean Corpuscular Hemoglobin 32.5 Concent Red Cell Distribution Width 15.2 Platelet Count 232 Mean Platelet Volume 7.8 Neutrophils (%) (Auto) 75.5 Lymphocytes (%) (Auto) 15.0 Monocytes (%) (Auto) 9.0 Eosinophils (%) (Auto) 0.3 Basophils (%) (Auto) 0.2 Neutrophils # (Auto) 11.8 Lymphocytes # (Auto) 2.4 Monocytes # (Auto) 1.4 Eosinophils # (Auto) 0.1 Basophils # (Auto) 0.0 CBC Comment DIFF FINAL Differential Comment Prothrombin Time 11.0 Prothromb Time International 1.0 Ratio Activated Partial 25.9 Thromboplast Time Sodium Level 123 Potassium Level 4.2 Chloride Level 89 Carbon Dioxide Level 25.1 Anion Gap 9 Blood Urea Nitrogen 20 Creatinine 0.83 Estimat Glomerular Filtration 68 Rate Random Glucose 111 Calcium Level 9.6 Total Creatine Kinase 109 Creatine Kinase MB 3.0 Troponin I 0.04 B-Type Natriuretic Peptide 472 Thyroid Stimulating Hormone 1.090 3rd Gen Blood Gas Puncture Site RT RADIAL Blood Gas Patient Temperature 98.6 Blood Gas HCO3 29 Blood Gas Base Excess 2.8 Blood Gas Oxygen Saturation 95 Arterial Blood pH 7.31 Arterial Blood Partial 58 Pressure CO2 Arterial Blood Partial 92 Pressure O2 Arterial Blood Oxygen Content 14.6 Arterial Blood 1.0 Carboxyhemoglobin Arterial Blood Methemoglobin 0.2 Blood Gas Hemoglobin 10.8 Oxygen Delivery Device BiPAP Blood Gas Ventilator Setting IPAP12/EPAP6 Blood Gas Inspired Oxygen 40 Lactic Acid Level 0.8 Urine Color COLORLESS Urine Turbidity CLEAR Urine pH 7.0 Urine Specific [place] 1.006 Urine Protein TRACE Urine Glucose (UA) NEG Urine Ketones NEG Urine Occult Blood NEG Urine Nitrite NEG Urine Bilirubin NEG Urine Urobilinogen LESS THAN 2.0 Urine Leukocyte Esterase NEG Urine RBC LESS THAN 1 Urine WBC LESS THAN 1 Microscopic Urinalysis Comment CATH-CULT NOT IND Urine Osmolality 213 Urine Random Creatinine 25.0 Urine Random Sodium 21 Date/Time Procedure Status Source Growth 10/16/16 05:30 Legionella Antigen Received Urine Clean Catch Pending 10/16/16 02:53 Aerobic Blood Culture Received Blood Peripheral Pending 10/16/16 02:53 Anaerobic Blood Culture Received Blood Peripheral Pending Result Diagram: 10/16/161 10/16/161 Assessment and Plan Assessment and Plan NEURO: Depression Anxiety Dementia Continue Celexa 40 mg by mouth daily Continue quetiapine 25 mg by mouth twice a day Hold Xanax 0.5 mg by mouth every 8 hours for now. RESP: Acute hypercapnic and hypoxemic respiratory failure Chronic opacification of right lung secondary to fibrosis status post radiation therapy (lung biopsy 06/23/16 with benign findings) History of small cell lung cancer COPD History of tobacco abuse BiPAP. DuoNeb's every 4 hours. Albuterol every 2 hours when necessary Solu-Medrol 40 g IV every 12 hours Abx as per below Consult pulmonology (known to Dr. Morrow) CV: Atrial fibrillation Hypertension Coronary artery disease with prior myocardial infarction Continue anticoagulation with xarelto 20 g by mouth daily Continue metoprolol 25 mg by mouth 3 times a day Give aspirin 81 mg daily Initial troponin negative, follow trend.. Follow-up 2-D echo EKG with atrial fibrillation and RVR in the 120s. There is a PVC. There are nonspecific lateral ST changes GI: Esophageal stricture status post multiple esophageal dilatation GERD NPO. zantac FEN/RENAL: Hyponatremia, acute on chronic. Fena is c/w prerenal though this may be related to CHF as BNP has uptrend to 472 , weight is up 1 kg, and rales in left lung field. Will give lasix 20 mg IV q12 and f/u BMP to monitor response closely. ID: ?HCAP Leukocytosis ?secondary to steroids. Follow-up urine Legionella antigen and follow up blood culture. Started empirically on aztreonam and vancomycin which will continue for now. HEME: Monitor CBC ENDO: Hypothyroidism Low-dose insulin sliding scale at bedside glucose every 6 hours while on steroids. TSH normal. Continue levothyroxine 50 mics grams by mouth daily PROPH: Xarelto will provide DVT prophylaxis. zantac for stress ulcer prophylaxis. ACCESS: Peripheral IV providing adequate access at this time. Level 3 H and P Chana Zamarripa MD Oct 16, 2016 07:40
[2016-10-16] MEDS ORDERED: RIVAROXABAN 15 MG TAB PO SCH (09:00)
[2016-10-16] MEDS ORDERED: GLUCAGON 1 MG/ML VIAL OTHER PRN (09:00)
[2016-10-16] MEDS: INSULIN ASPART SUPPLEMENTAL SCALE SQ SCH ×3 (09:00→21:29)
[2016-10-16] MEDS ORDERED: DEXTROSE 50% IN WATER 50 ML VIAL(D50) IV PUSH PRN (09:00)
[2016-10-16] MEDS: QUEtiapine FUMARATE 25 MG TAB PO SCH ×2 (09:52→20:10)
[2016-10-16] MEDS: CITALOPRAM HYDROBROMIDE 20 MG TAB PO SCH (09:52)
[2016-10-16] MEDS: METOPROLOL TARTRATE 25 MG TAB PO SCH ×3 (09:52→18:14)
[2016-10-16] MEDS: methylPREDNISolone SOD SUCC 40 MG/1 ML VIAL IV PUSH SCH ×2 (09:52→20:09)
[2016-10-16] MEDS: FUROSEMIDE 20 MG/2 ML VIAL IV PUSH SCH ×2 (09:52→20:10)
[2016-10-16 09:55] LABS: BLOOD GAS BASE EXCESS 3.1 mmol/L (-2-2); BLOOD GAS CARBOXYHEMOGLOBIN 1.8 % (0-4); BLOOD GAS HCO3 28 mmol/L (22-26); BLOOD GAS METHEMOGLOBIN 0.7 % (0-2); BLOOD GAS O2 HGB SATURATION 95 % (90-100); BLOOD GAS OXYGEN CONTENT 13.3 Vol % (12.0-20.0); BLOOD GAS PCO2 47 mmHg (38-42); BLOOD GAS PO2 97 mmHg (61-120); BLOOD GAS TOTAL HGB 9.8 G/DL (12.0-16.0); CRITICAL VALUE NO; DRAW SITE RT RADIAL; FIO2 30 %; NUMBER OF ARTERIAL PUNCTURES 1; OXYGEN DEVICE BIPAP; TEMP CORR TO 98.6; ULNAR PULSE PRESENT
[2016-10-16 09:56] LABS: STAT YES
[2016-10-16] MEDS: ASPIRIN 81 MG CHEW TAB CHEW SCH (10:09)
[2016-10-16] MEDS: FAMOTIDINE 20 MG TAB PO SCH ×2 (10:09→20:10)
[2016-10-16] MEDS: LIPASE/PROTEASE/AMYLASE (24,000/76,000/120,000) CAP PO SCH ×3 (10:10→18:14)
[2016-10-16] MEDS: LEVOTHYROXINE SODIUM 50 MCG TAB PO SCH (10:15)
[2016-10-16] MEDS: AZTREONAM INJ 2,000 MG in SODIUM CHLORIDE 0.9% INJ 100 ML IV SCH ×2 (10:15→18:14)
[2016-10-16 11:23] LABS: BICARBONATE 31.1 MEQ/L (21.0-32.0); POTASSIUM 3.6 MEQ/L (3.5-5.1)
--- NOTE | 2016-10-16 16:31 | PD.CONS ---
HPI Service [facility] Hospitalists Consult Requested By Dr. Chacko Reason for Consult Assume medical management Primary Care Physician Unknown Diagnoses: History of Present Illness This is a pleasant 71 year-old female with significant past medical history of COPD oxygen dependent, chronic imaging changes secondary to fibrosis, CAD status post WY 2, dementia, 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 fib, depression, anxiety, hypertension. Patient with frequent hospitalizations and ER visits for COPD exacerbation and chest discomfort. Pt. was actually admitted to our services for COPD exacerbation from 10/13 to 10/15. Pt. returned to ED today around 0100 with SOB, was given duonebs x3 per EVAC and was reportedly tachypneic with significant wheezing upon arrival to ED. Denied fever, chills, chest pain. She was placed on BiPAP 12/5 30%. Was initially not tolerating BiPAP and intubation was contemplated however she was administered Ativan 1 mg IV and then was able to tolerate BiPAP and appeared much improved. Reportedly wheezing significantly improved after nebs in the ED. Chest x-ray shows chronic opacification of the right lung. There was left basilar air space disease. Pt. was admitted under flow machine operator services. She has been started on empiric antibiotics, cultures obtained. She was noted hyponatremic, initially 123 now 129. Of note, during prior admission hospice spoke to pt. She had initiated conversations as outpatient however when they spoke to her she wanted to continue with aggressive goals of care. I brought up hospice as a resource to prevent rehospitalization and keep her comfortable at home. However, she doesn't feel like talking about it. When discussing possibility of rehab, she adamantly refuses. Wants to go back home with [facility]. Pt. now transferred to hospitalist services of further medical treatment. (Sherron Mota) Review of Systems ROS Limitations: Clinical Condition Respiratory: COMPLAINS OF: Wheezing, Shortness of breath Cardiovascular: COMPLAINS OF: Chest pain Psychiatric: COMPLAINS OF: Anxiety (Sherron Mota) Past Family Social History Past Medical History COPD CAD s/p W[place] x2 Neck abscess (drained 02/19/16) Esophageal Stricture, s/p esophageal dilation 08/2015 Small Cell Lung Cancer on R 04/21 [id number] Chemo & Radiation Diverticulosis Afib Depression Anxiety HTN Hypothyroidism Dementia Admitted with SOB, found with collapsed right upper lobe, occlusion RUL bronchus , had bronch/lung bx, benign findings. Changes likely due to chronic fibrosis. Left renal mass Takotsubo evaluated via cardiac catheter in 2009 Past Surgical History Vocal Cord Polypectomy Breast Bx Laparoscopic Choly Esophageal Dilations Recurrent PortaCath Removed in 11/24 Cardiac Cath: Dr Urbina Normal Coronaries. Bilateral Cataracts Permanent IVC filter placed 08/30 Rhinolaryngoscopy 2011 Cardiac Cath 01/26 Dr Essie Paz at [facility] Permanent IVC filter placed 08/30 EGD and Colonoscopy at [facility] 08/30 S/P bronch, lung bx 06/2016, benign findings. Reported Medications Reported Meds & Active Scripts Active Prednisone (21) 10 mg tab Dose Pack (Prednisone) 10 Mg Pack 10 Mg PO DIRECTED Hydrocodone-Acetaminophen 5-325 mg Tab 1 Tab PO Q4H PRN Xanax (Alprazolam) 0.5 Mg Tab 0.5 Mg PO Q8H PRN Xarelto (Rivaroxaban) 15 Mg Tab 20 Mg PO DAILY Quetiapine (Quetiapine Fumarate) 25 Mg Tab 25 Mg PO BID Creon (Amylase/Lipase/Protease) 24,000-76,000-120,000 Units Cap 1 Cap PO TID Celexa (Citalopram Hydrobromide) 20 Mg Tab 40 Mg PO DAILY Reported Metoprolol Tartrate 25 Mg Tab 25 Mg PO TID Ipratropium [place] 1 Pow Pow 0.5 Mg NEB TID Levothyroxine (Levothyroxine Sodium) 50 Mcg Tab 50 Mcg PO DAILY Zantac 150 Maximum Strength (Ranitidine HCl) 150 Mg Tab 150 Mg PO BID Mylanta Liq (Ewvhrttx-Shzgpdzpa-Occjloumbwv Liq) 200-200-20 Mg/5 Ml Susp 30 Ml PO Q8HR Take between meals or as directed. Shake well. Maximum 120 ml/24 hrs. Potassium Chloride ER (Potassium Chloride) 10 Meq Cap 10 Meq PO DAILY (Sehrron Mota) Allergies: Coded Allergies: Adhesives (Verified Allergy, Severe, RASK, 07/29/16) skin breakdown Calcium Channel Blockers (Verified Allergy, Severe, DIFFICULTY BREATHING, 07/29/16) Entex LA (Verified Allergy, Severe, Anaphylaxis, 07/29/16) Marcaine (Verified Allergy, Severe, DIFFICULTY BREATHING, 10/13/16) Minocin (Verified Allergy, Severe, DIFFICULTY BREATHING, 10/13/16) Nonsteroidal Anti-Inflammatory Agts (Verified Allergy, Severe, DIFFICULTY BREATHING, 10/13/16) PEANUTS (Verified Allergy, Severe, lips swelling, 10/13/16) Penicillin (Verified Allergy, Severe, DIFFICULTY BREATHING, 10/13/16) Prilosec (Verified Allergy, Severe, DIFFICULTY BREATHING, 10/13/16) Promethazine (Verified Allergy, Severe, DIFFICULTY BREATHING, 10/13/16) Sulfa (Verified Allergy, Severe, DIFFICULTY BREATHING, 10/13/16) Prednisone (Verified Allergy, Intermediate, rash and lips swell, 10/13/16) Zyrtec (Verified Allergy, Intermediate, rash, 10/13/16) Zyprexa (Verified Adverse Reaction, Severe, Severe vomiting., 10/13/16) Fluticasone (Verified Adverse Reaction, Intermediate, Ra[place] of the skin around the nose. Inhaled steroids do , 10/13/16) the same to her mouth. Omeprazole (Verified Adverse Reaction, Intermediate, [place] funny, 10/13/16) Zithromax (Verified Adverse Reaction, Intermediate, Says it made her jittery and it was harder to breathe. 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 Not sure would get same reaction to Injectable. Lian Huber MD. Jacob (Adverse Reaction, Severe, Caused amnesia and a fall. , 07/10/13) Active Ordered Medications Inpatient Medications Acetaminophen (Tylenol) 650 mg Q6H PRN PO PAIN 1-10 AND/OR FEVER >101F; Start 10/16/16 at 03:30 Albuterol Sulfate (Albuterol Neb) 2.5 mg Q2HR NEB PRN INH SOB/WHEEZING; Start 10/16/16 at 03:30 Albuterol Sulfate 2.5 mg 2.5 mg Q15M INH Last administered on 10/16/16t 01:38; Start 10/16/16 at 01:30; Stop 10/16/16 at 02:01; Status DC Albuterol/ Ipratropium (Duoneb Neb) 1 ampule Q4HR NEB INH Last administered on 10/16/16 15:18; Start 10/16/16 at 04:00 Amylase/Lipase/ Protease (Creon 24-76-120) 1 cap TID PO Last administered on 13:24; Start 10/16/16 at 09:00 Aspirin (Aspirin Chew) 81 mg DAILY CHEW Last administered on 10/16/16 10:09; Start 10/16/16 at 09:00 Aztreonam 2000 mg/ Sodium Chloride 100 ml @ 200 mls/hr ONCE ONCE IV Last administered on 10/16/16 03:03; Start 10/16/16 at 02:30; Stop 10/16/16 at 02:59; Status DC Aztreonam/Sodium Chloride (Azactam Inj/NS Inj) 100 ml @ 200 mls/hr Q8H IV Last administered on 10/16/16 10:15; Start 10/16/16 at 11:00 Chlorhexidine Gluconate (Chlorhexidine 2% Cloth) 3 pack UNSCH PRN TOP HYGIENIC CARE; Start 10/16/16 at 03:30 Citalopram Hydrobromide (CeleXA) 40 mg DAILY PO Last administered on 10/16/16 09:52; Start 10/16/16 at 09:00 Dextrose (D50w (Vial) Inj) 25 ml UNSCH PRN IV PUSH HYPOGLYCEMIA-SEE COMMENTS; Start 10/16/16 at 09:00 Famotidine (Pepcid) 20 mg Q12HR PO Last administered on 10/16/16 10:09; Start 10/16/16 at 09:00 Furosemide (Lasix Inj) 20 mg Q12H IV PUSH Last administered on 10/16/16 09:52; Start 10/16/16 at 09:00 Glucagon (Glucagon Inj) 1 mg UNSCH PRN OTHER HYPOGLYCEMIA-SEE COMMENTS; Start 10/16/16 at 09:00 Heparin Sodium (Porcine) (Heparin Inj) 5,000 units Q12H SQ Last administered on 10/16/16 04:35; Start 10/16/16 at 05:00; Stop 10/16/16 at 08:45; Status DC Hydralazine HCl (Apresoline Inj) 10 mg Q6H PRN IV PUSH SYS BP GREATER THAN 160 MMHG; Start 10/16/16 at 12:30 Insulin Aspart (NovoLOG SUPPLEMENTAL SCALE) 1 Q6H SQ Last administered on 09:00; Start 10/16/16 at 09:00 Levothyroxine Sodium (Synthroid) 50 mcg DAILY@06 PO Last administered on 10:15; Start 10/16/16 at 09:00 Lorazepam (Ativan Inj) 1 mg ONCE ONCE IV PUSH Last administered on 10/16/16 01 :14; Start 10/16/16 at 01:15; Stop 10/16/16 at 01:16; Status DC Methylprednisolone Sodium Succinate (SoluMEDROL INJ) 40 mg Q12HR IV PUSH Last administered on 10/16/16 09:52; Start 10/16/16 at 09:00 Metoprolol Tartrate (Lopressor) 25 mg TID PO Last administered on 10/16/16 13: 24; Start 10/16/16 at 09:00 Miscellaneous Information SPECIFIC LAB TO BE DRAWN:VANCO TROUGH DATE TO BE DR... ONCE ONCE .XX ; Start 10/18/16 at 08:45; Stop 10/18/16 at 08:46 Ondansetron HCl (Zofran Inj) 4 mg Q6H PRN IV NAUSEA OR VOMITING; Start 10/16/16 at 03:30 Pharmacy Profile Note 0 ml @ 0 mls/hr UNSCH OTHER ; Start 10/16/16 at 03:30 Quetiapine Fumarate (SEROquel) 25 mg BID PO Last administered on 10/16/16 09:52 ; Start 10/16/16 at 09:00 Rivaroxaban (Xarelto) 15 mg DAILY PO ; Start 10/17/16 at 15:00 Rivaroxaban 15 mg 15 mg DAILY PO ; Start 10/16/16 at 09:00; Stop 10/16/16 at 09:34 ; Status DC Sodium Chloride (NS Flush) 2 ml UNSCH PRN IVF FLUSH AFTER USING IV ACCESS; Start 10/16/16 at 01:15 Vancomycin HCl 1200 mg/Sodium Chloride 262 ml @ 250 mls/hr ONCE ONCE IV Last administered on 4/1/17at 03:03; Start 10/16/16 at 02:30; Stop 10/16/16 at 03:35; Status DC Vancomycin HCl/ Sodium Chloride (Vancomycin Inj/ NS 250 ml Inj) 262.5 ml @ 250 mls/hr Q18H IV ; Start 10/16/16 at 21:00 Family History Alcoholism, Drug Abuse, Suicidal Depression/Anxiety. Cancer of the larynx in her brother (Smoker). Sister has gout and renal cancer. One sister has polyposis (Denise), RA in oldest sister. 16 yo niece hung herself. 1 sister with thyroid cancer. Mother was 54 years and killed herself with a 22 pistol. 1 Brother shot himself at age 46. Social History Marital Status: and lives alone. Has [facility], PT services. Living Situation: Lives in own home, son lives across street Tobacco: DC'd cigs in 's. Alcohol: None Illicit drug use: none (Sherron Mota) Physical Exam Vital Signs Vital Signs Date Time Temp Pulse Resp B/P Pulse Ox O2 Delivery O2 Flow Rate FiO2 10/16/16 10:23 92 Nasal Cannula 5.00 10/16/16 10:00 79 10/16/16 08:10 100 30 10/16/16 08:00 76 10/16/16 07:00 76 10/16/16 06:13 98.6 103 20 187/98 93 10/16/16 04:36 81 12 152/71 95 BiPAP 10/16/16 04:01 98 30 10/16/16 03:08 101 20 135/82 100 BiPAP 10/16/16 01:05 80 Room Air 10/16/16 01:05 98 BiPAP 50 10/16/16 00:55 94 40 10/16/16 00:52 98.9 104 26 232/119 80 Physical Exam GENERAL: This is a well-nourished, well-developed patient, in no apparent distress. SKIN: No rashes, ecchymoses or lesions. Cool and dry. HEAD: Atraumatic. Normocephalic. No temporal or scalp tenderness. EYES: Pupils equal round and reactive. Extraocular motions intact. No scleral icterus. No injection or drainage. ENT: Nose without bleeding, purulent drainage or septal hematoma. Throat without erythema, tonsillar hypertrophy or exudate. Uvula midline. Airway patent. NECK: Trachea midline. No JVD or lymphadenopathy. Supple, nontender, no meningeal signs. CARDIOVASCULAR: Irregular rate and rhythm without murmurs, gallops, or rubs. RESPIRATORY: Diminished, poor respiratory effort. Chest wall tender to palpation, slight bruising to mid chest wall. GASTROINTESTINAL: Abdomen soft, non-tender, nondistended. No hepato-splenomegaly , or palpable masses. No guarding. MUSCULOSKELETAL: Extremities without clubbing, cyanosis, or edema. No joint tenderness, effusion, or edema noted. No calf tenderness. Negative Homans sign bilaterally. Toes with deformities. NEUROLOGICAL: Awakes to voice, oriented 3. No focal deficits. Laboratory Laboratory Tests Test 10/16/16 10/16/16 10/16/16 10/16/16 01:11 02:14 02:53 05:30 White Blood Count 15.7 Red Blood Count 4.12 Hemoglobin 11.9 Hematocrit 36.5 Mean Corpuscular Volume 88.6 Mean Corpuscular Hemoglobin 28.8 Mean Corpuscular Hemoglobin 32.5 Concent Red Cell Distribution Width 15.2 Platelet Count 232 Mean Platelet Volume 7.8 Neutrophils (%) (Auto) 75.5 Lymphocytes (%) (Auto) 15.0 Monocytes (%) (Auto) 9.0 Eosinophils (%) (Auto) 0.3 Basophils (%) (Auto) 0.2 Neutrophils # (Auto) 11.8 Lymphocytes # (Auto) 2.4 Monocytes # (Auto) 1.4 Eosinophils # (Auto) 0.1 Basophils # (Auto) 0.0 CBC Comment DIFF FINAL Differential Comment Prothrombin Time 11.0 Prothromb Time International 1.0 Ratio Activated Partial 25.9 Thromboplast Time Sodium Level 123 Potassium Level 4.2 Chloride Level 89 Carbon Dioxide Level 25.1 Anion Gap 9 Blood Urea Nitrogen 20 Creatinine 0.83 Estimat Glomerular Filtration 68 Rate Random Glucose 111 Calcium Level 9.6 Total Creatine Kinase 109 Creatine Kinase MB 3.0 Troponin I 0.04 B-Type Natriuretic Peptide 472 Thyroid Stimulating Hormone 1.090 3rd Gen Blood Gas Puncture Site RT RADIAL Blood Gas Patient Temperature 98.6 Blood Gas HCO3 29 Blood Gas Base Excess 2.8 Blood Gas Oxygen Saturation 95 Arterial Blood pH 7.31 Arterial Blood Partial 58 Pressure CO2 Arterial Blood Partial 92 Pressure O2 Arterial Blood Oxygen Content 14.6 Arterial Blood 1.0 Carboxyhemoglobin Arterial Blood Methemoglobin 0.2 Blood Gas Hemoglobin 10.8 Oxygen Delivery Device BiPAP Blood Gas Ventilator Setting [id number] Blood Gas Inspired Oxygen 40 Lactic Acid Level 0.8 Urine Color COLORLESS Urine Turbidity CLEAR Urine pH 7.0 Urine Specific [place] 1.006 Urine Protein TRACE Urine Glucose (UA) NEG Urine Ketones NEG Urine Occult Blood NEG Urine Nitrite NEG Urine Bilirubin NEG Urine Urobilinogen LESS THAN 2.0 Urine Leukocyte Esterase NEG Urine RBC LESS THAN 1 Urine WBC LESS THAN 1 Microscopic Urinalysis Comment CATH-CULT NOT IND Urine Osmolality 213 Urine Random Creatinine 25.0 Urine Random Sodium 21 Test 10/16/16 10/16/16 10/16/16 10/16/16 06:15 06:48 09:45 10:34 Nasal Screen MRSA (PCR) NEGATIVE Troponin I 0.07 Blood Gas Puncture Site RT RADIAL Blood Gas Patient Temperature 98.6 Blood Gas HCO3 28 Blood Gas Base Excess 3.1 Blood Gas Oxygen Saturation 95 Arterial Blood pH 7.39 Arterial Blood Partial 47 Pressure CO2 Arterial Blood Partial 97 Pressure O2 Arterial Blood Oxygen Content 13.3 Arterial Blood 1.8 Carboxyhemoglobin Arterial Blood Methemoglobin 0.7 Blood Gas Hemoglobin 9.8 Oxygen Delivery Device BIPAP Blood Gas Inspired Oxygen 30 Sodium Level 129 Potassium Level 3.6 Chloride Level 91 Carbon Dioxide Level 31.1 Anion Gap 7 Blood Urea Nitrogen 16 Creatinine 0.80 Estimat Glomerular Filtration 71 Rate Random Glucose 117 Calcium Level 8.9 Test 10/16/16 13:28 Troponin I 0.06 Date/Time Procedure Status Source Growth 10/16/16 05:30 Legionella Antigen - Final Complete Urine Clean Catch PRESUMPTIVE NEGATIVE FOR LEGIONELLA P... 10/16/16 02:53 Aerobic Blood Culture Received Blood Peripheral Pending 10/16/16 02:53 Anaerobic Blood Culture Received Blood Peripheral Pending (Sherron Mota [facility]) Result Diagram: 10/16/16 0111 10/16/16 1034 Imaging Last Impressions Chest X-Ray 10/16/16 0103 Signed Impressions: Service Date/Time: Sunday, October 16, 2016 01:19 - CONCLUSION: Examination quality is significantly degraded by motion artifact. There is complete opacification of the right hemithorax. Questionable changes of the left lung base may represent interstitial versus air space opacity. Hasmukh Willett MD (Sherron Mota) A/P Diagnosis: (1) Acute respiratory failure with hypoxia and hypercapnia (2) COPD (chronic obstructive pulmonary disease) (3) Hypothyroidism (4) Depression with anxiety (5) Anxiety (6) HTN (hypertension) (7) Atrial fibrillation (8) History of [place] (myocardial infarction) (9) Hyponatremia Assessment and Plan 71-year-old female with history of COPD oxygen dependent, CAD, afib, hx lung cancer. Pt.admitted for COPD exacerbation from 10/13 to 10/15. Pt. returned to ED today around 0100 with SOB, was given duonebs x3 per EVAC and was reportedly tachypneic with significant wheezing upon arrival to ED. She was placed on BiPAP 06/21 30%. Was initially not tolerating BiPAP and intubation was contemplated however she was administered Ativan 1 mg IV and then was able to tolerate BiPAP and appeared much improved. Was admitted to ICU under [facility] care. Acute respiratory failure with hypoxia and hypercarbia -Bipap as needed Continue with oxygen Continue with DuoNeb's Continue with IV steroids Consult her oracle bpm developer, Dr. Connelly CHF, acute on chronic, BNP was 472. -Continue with Lasix 20 mg IV daily BID Monitor intake and output - 2D echo pending Elevated trop, mild, poss. due to cardiac demand -serial cardiac enzymes Chronic A. fib, stable Continue with Lopressor 25 mg by mouth 3 times a day Continue with Xarelto -Continuous cardiac telemetry Hypertension Continue home medications Depression and anxiety Continue with home Continue with Xarelto for DVT prophylaxis Pepcid for GI prophylaxis End of life care issues addressed with pt. Doesn't want to talk about hospice. Pt. may benefit from palliative care services, she has had frequent admissions, has multiple comorbidities. She is likely to continue to decline. We will continue to discuss with patient. Condition guarded. This patient was seen by myself and Dr. Caputo, this H&P is written on his behalf (Sherron Mota) Assessment and Plan Assessment and evaluation was done yesterday chart was reviewed plan of care sushil addisonp as above cond was gaurded (Alistair Caputo MD) Problem Qualifiers (1) COPD (chronic obstructive pulmonary disease): Qualified Code: J44.1 - Chronic obstructive pulmonary disease with acute exacerbation (2) Hypothyroidism: Qualified Code: E03.9 - Hypothyroidism, unspecified type (3) HTN (hypertension): Qualified Code: I10 - Essential hypertension (4) Atrial fibrillation: Qualified Code: I48.2 - Chronic atrial fibrillation Sherron Mota Oct 16, 2016 16:31 Alistair Caputo MD Oct 17, 2016 15:24
--- NOTE | 2016-10-16 19:08 | MB ---
cc: ARMIDA HUFFMAN DATE OF CONSULTATION 10/16/16 REASON FOR CONSULTATION 1. Respiratory failure 2. COPD exacerbation. HISTORY OF PRESENT ILLNESS Mrs. Ruiz is a 71-year-old female with known history of severe COPD, chronic respiratory failure on oxygen therapy 24 hours a day at home admitted through the emergency room with increasing shortness of breath becoming progressively worse despite outpatient therapy. The patient actually was here several days ago, discharged only to return with recurrent exacerbation of her COPD. Her shortness of breath has improved initially on BiPap therapy, now with six liters of oxygen via nasal cannula. Denies history of fever, chills, hemoptysis, no TB or industrial exposure. PAST MEDICAL HISTORY 1. COPD, 2. Coronary artery disease, had myocardial infarction twice in the past 3. History of esophageal stricture 4. Small cell lung cancer treated in 2004 with remission. She had both radiation and chemotherapy. 5. History of diverticular disease, 6. Atrial fibrillation with disorder namely anxiety, depression, 7. Hypertension, 8. Hypothyroidism PAST SURGICAL HISTORY Extensive, well-documented upon presentation. MEDICATIONS Current at home 1. Prednisone 10 mg daily. 2. Xanax 3. Xarelto 4. Quetiapine 5. Creon 6. Celexa. ALLERGIES ADHESIVE TAPE CALCIUM CHANNEL BLOCKERS ENTEX MARCAINE MINOCIN NON-STEROID ANTIINFLAMMATORIES PENICILLIN PRILOSEC PROMETHAZINE SULFA ZYRTEC ZYPREXA FLUTICASONE OMEPRAZOLE ZITHROMAX ALLERGIES For more detail on the allergies kindly review admission record. Most of these allergies are not well documented. FAMILY HISTORY Noncontributory. REVIEW OF SYSTEMS 12-point review of systems as per HPI and past history otherwise negative PHYSICAL EXAMINATION VITAL SIGNS: Pulse is 84, respirations 18, blood pressure 100/60, ox saturation 88% on 5 liters oxygen nasal cannula. HEENT: Exam unremarkable. Eyes without icterus. NECK: Without adenopathy or thyroid enlargement. Central trachea. CHEST: Few scattered rhonchi. CARDIAC: PMI distant. Irregularity noted. ABDOMEN: Lax, bowel sounds audible. EXTREMITIES: No clubbing, cyanosis or edema. SKIN: Normal. No lymphadenopathy. LABORATORY DATA Arterial blood gas today - pH 739, pCO2 47, pO2 97 on BiPap therapy 30% inspired oxygen fraction. Sodium 129, potassium 3.6, BUN 16, creatinine 0.8, INR 1.0. White count 15,000, hemoglobin 11, hematocrit 36. IMAGING STUDIES Chest x-ray today - severe opacification of the right hemithorax. Will need follow up. IMPRESSION 1. COPD and exacerbation 2. Acute on chronic respiratory failure. 3. Coronary artery disease 4. Hypertension 5. Mood disorder PLAN The patient will be maintained on oxygen therapy as needed. Bronchodilator therapy. Antibiotic therapy would be helpful on empiric basis. Would review the patient's previous x-rays and if the left lung opacification is new, then she would require followup CT scan of the chest in attempt to identify the etiology. We will follow her case of care along with you and, depending on progress, would proceed further. I do thank you for asking to partake in Mrs. Tillman' care. Armida Huffman MD WWW/ /6:10 PM /6:48 PM
[2016-10-16] MEDS ORDERED: VANCOMYCIN INJ 1,250 MG in SODIUM CHLOR 0.9% 250 ML INJ 250 ML IV SCH (21:00)
[2016-10-16] MEDS: ALPRAZolam 0.5 MG TAB PO PRN (21:29)
--- NOTE | 2016-10-16 23:36 | EKG ---
Date Performed: 10/16/2016 Time Performed: 22:03:07 PTAGE: 71 years EKG: ATRIAL FLUTTER/TACHYCARDIA WITH ABERRANT CONDUCTION OR VENTRICULAR PREMATURE COMPLEXES ABNO RMAL RHYTHM ECG PREVIOUS TRACING : 10/16/2016 16.02 DOCTOR: Link Ribeiro Interpretating Date/Time 10/16/2016 23:35:03
--- NOTE | 2016-10-16 23:56 | EKG ---
Date Performed: 10/16/2016 Time Performed: 16:02:44 PTAGE: 71 years EKG: ATRIAL FLUTTER/TACHYCARDIA WITH ABERRANT CONDUCTION OR VENTRICULAR PREMATURE COMPLEXES MODE RATE INTRAVENTRICULAR CONDUCTION DELAY MODERATE T-WAVE ABNORMALITY, CONSIDER ANTERIOR ISCHEMIA ABNORM AL ECG PREVIOUS TRACING : 10/16/2016 10.39 DOCTOR: Link Ribeiro Interpretating Date/Time 10/16/2016 23:55:40
[2016-10-17] VITALS (12 sets, daily range): BP systolic 127–177; BP diastolic 72–94; PULSE 81–104; RESP 14–23; TEMP 97.3–98.6; O2SAT 96–99
--- NOTE | 2016-10-17 00:09 | EKG ---
Date Performed: 10/16/2016 Time Performed: 10:39:44 PTAGE: 71 years EKG: ATRIAL FIBRILLATION WITH ABERRANT CONDUCTION OR VENTRICULAR PREMATURE COMPLEXES MODERATE IN TRAVENTRICULAR CONDUCTION DELAY ABNORMAL RHYTHM ECG PREVIOUS TRACING : 10/16/2016 01.13 DOCTOR: Link Ribeiro Interpretating Date/Time 10/17/2016 00:07:52
[2016-10-17] MEDS: INSULIN ASPART SUPPLEMENTAL SCALE SQ SCH ×4 (03:00→19:40)
[2016-10-17] MEDS: AZTREONAM INJ 2,000 MG in SODIUM CHLORIDE 0.9% INJ 100 ML IV SCH ×3 (03:07→19:39)
[2016-10-17] MEDS: CHLORHEXIDINE GLUCONATE 2 % 1 PACK (2 CLOTHS) TOP SCH (03:08)
[2016-10-17] MEDS: RESP: ALBUTEROL 2.5 MG/IPRATROPIUM 0.5 MG NEB (SCH) INH ×5 (04:37→20:00)
[2016-10-17] MEDS: LEVOTHYROXINE SODIUM 50 MCG TAB PO SCH (05:32)
[2016-10-17 05:35] LABS: AUTOMATED NEUTROPHIL # 4.2 TH/MM3 (1.8-7.7); BASOPHIL % 0.1 % (0.0-2.0); HEMATOCRIT 29.7 % (35.0-46.0); HEMO FLAGS DIFF FINAL; LYMPH % 6.3 % (9.0-44.0); LYMPHOCYTE # 0.3 TH/MM3 (1.0-4.8); MEAN CELL VOLUME 87.8 FL (80.0-100.0); MONO % 2.8 % (0.0-8.0); NEUT % 90.8 % (16.0-70.0); PLATELET COUNT 145 TH/MM3 (150-450); RED BLOOD COUNT 3.39 MIL/MM3 (4.00-5.30); RED CELL DISTRIBUTION WIDTH 14.7 % (11.6-17.2); WHITE BLOOD COUNT 4.7 TH/MM3 (4.0-11.0)
--- NOTE | 2016-10-17 05:52 | RADRPT ---
EXAM DATE/TIME: 10/17/2016 04:59 [place] COMPARISON: CT PULMONARY ANGIOGRAM, July 28, 2016, 15:07. CHEST SINGLE AP, October 16, 2016, 1:19. INDICATIONS : Shortness of breath, possible pulmonary disease. MEDICAL HISTORY : Carcinoma, lung. SURGICAL HISTORY : Right lung surgery ENCOUNTER: Subsequent ACUITY: 2 days PAIN SCORE: 0/10 LOCATION: Bilateral chest FINDINGS: Portable AP view of the chest demonstrates a normal-sized cardiac silhouette with rightward deviation of the trachea. There is near-complete opacification of the right hemithorax. Left lung is hyperexpa nded but demonstrates no acute finding. No pneumothorax is visualized. Bones and soft tissues demonst rate no acute finding. CONCLUSION: Stable chest x-ray with near complete opacification right hemithorax with signs of volume loss in the right hemithorax. Hasmukh Willett MD on October 17, 2016 at 5:49 Board Certified Radiologist. This report was verified electronically.
[2016-10-17 05:57] LABS: ALT (GPT) 33 U/L (10-53); ANION GAP 8 MEQ/L (5-15); AST (GOT) 13 U/L (15-37); BICARBONATE 28.8 MEQ/L (21.0-32.0); BLOOD UREA NITROGEN 18 MG/DL (7-18); CHLORIDE 94 MEQ/L (98-107); GLOMERULAR FILTRATION RATE 67 ML/MIN (>89); MAGNESIUM 2.5 MG/DL (1.5-2.5); POTASSIUM 3.6 MEQ/L (3.5-5.1); SODIUM (NA) 131 MEQ/L (136-145)
[2016-10-17 05:59] LABS: ALKALINE PHOSPHATASE 57 U/L (45-117); TOTAL BILIRUBIN ADULT 0.4 MG/DL (0.2-1.0)
[2016-10-17] MEDS: CITALOPRAM HYDROBROMIDE 20 MG TAB PO SCH (08:15)
[2016-10-17] MEDS: LIPASE/PROTEASE/AMYLASE (24,000/76,000/120,000) CAP PO SCH ×3 (08:15→18:00)
[2016-10-17] MEDS: FAMOTIDINE 20 MG TAB PO SCH ×2 (08:16→19:40)
[2016-10-17] MEDS: METOPROLOL TARTRATE 25 MG TAB PO SCH ×3 (08:16→18:00)
[2016-10-17] MEDS: FUROSEMIDE 20 MG/2 ML VIAL IV PUSH SCH (08:16)
[2016-10-17] MEDS: ASPIRIN 81 MG CHEW TAB CHEW SCH (08:16)
[2016-10-17] MEDS: QUEtiapine FUMARATE 25 MG TAB PO SCH ×2 (08:16→19:40)
[2016-10-17] MEDS: methylPREDNISolone SOD SUCC 40 MG/1 ML VIAL IV PUSH SCH ×2 (08:16→19:39)
[2016-10-17] MEDS: ALPRAZolam 0.5 MG TAB PO PRN ×3 (09:00→21:18)
--- NOTE | 2016-10-17 12:17 | HHI.PR ---
Subjective Remarks SOB with wheezing no cp doesn't want steroids, "makes me anxious" wants Oleg feels a little better, doesn't recall how she arrived here no fever Objective Objective Results - Vital Signs Date Time Temp Pulse Resp B/P Pulse Ox O2 Delivery O2 Flow Rate FiO2 10/17/16 07:52 97 Nasal Cannula 3.00 10/17/16 06:00 91 10/17/16 04:00 87 10/17/16 04:00 98.5 87 14 165/79 96 10/17/16 02:00 86 10/17/16 00:00 98.6 83 15 169/75 99 10/17/16 00:00 83 10/16/16 22:00 96 10/16/16 20:00 87 10/16/16 20:00 98.5 87 24 169/80 97 10/16/16 19:49 98 Nasal Cannula 2.00 10/16/16 18:00 70 10/16/16 16:00 69 10/16/16 15:00 98.6 69 2 125/60 25 10/16/16 15:00 88 10/16/16 14:00 72 I/O 10/16/16 10/16/16 10/16/16 10/17/16 10/17/16 10/17/16 07:00 15:00 23:00 07:00 15:00 23:00 Intake Total 200 ml 576 ml 450 ml Output Total 2600 ml 950 ml 1400 ml 1800 ml Balance -2400 ml -374 ml -950 ml -1800 ml Intake Oral 50 ml 350 ml 300 ml IV Total 150 ml 226 ml 150 ml Output Urine Total 2600 ml 950 ml 1400 ml 1800 ml # Voids 2 # Bowel Movements 1 Result Diagram: 10/17/16 0424 10/17/16 0242 Imaging Last Impressions Chest X-Ray 10/16/16 0103 Signed Impressions: Service Date/Time: Sunday, October 16, 2016 01:19 - CONCLUSION: Examination quality is significantly degraded by motion artifact. There is complete opacification of the right hemithorax. Questionable changes of the left lung base may represent interstitial versus air space opacity. Hasmukh Willett MD Other Results Laboratory Tests Test 10/16/16 10/17/16 10/17/16 13:28 02:42 04:24 Troponin I 0.06 Sodium Level 131 Potassium Level 3.6 Chloride Level 94 Carbon Dioxide Level 28.8 Anion Gap 8 Blood Urea Nitrogen 18 Creatinine 0.84 Estimat Glomerular Filtration 67 Rate Random Glucose 126 Calcium Level 9.0 Phosphorus Level 2.4 Magnesium Level 2.5 Total Bilirubin 0.4 Aspartate Amino Transf 13 (AST/SGOT) Alanine Aminotransferase 33 (ALT/SGPT) Alkaline Phosphatase 57 Total Protein 6.9 Albumin 3.5 White Blood Count 4.7 Red Blood Count 3.39 Hemoglobin 9.8 Hematocrit 29.7 Mean Corpuscular Volume 87.8 Mean Corpuscular Hemoglobin 29.0 Mean Corpuscular Hemoglobin 33.0 Concent Red Cell Distribution Width 14.7 Platelet Count 145 Mean Platelet Volume 8.0 Neutrophils (%) (Auto) 90.8 Lymphocytes (%) (Auto) 6.3 Monocytes (%) (Auto) 2.8 Eosinophils (%) (Auto) 0.0 Basophils (%) (Auto) 0.1 Neutrophils # (Auto) 4.2 Lymphocytes # (Auto) 0.3 Monocytes # (Auto) 0.1 Eosinophils # (Auto) 0.0 Basophils # (Auto) 0.0 CBC Comment DIFF FINAL Differential Comment B-Type Natriuretic Peptide 483 Date/Time Procedure Status Source Growth 10/16/16 05:30 Legionella Antigen - Final Complete Urine Clean Catch PRESUMPTIVE NEGATIVE FOR LEGIONELLA P... 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 SKIN: No rashes, ecchymoses or lesions. Cool and dry. HEAD: Atraumatic. Normocephalic. No temporal or scalp tenderness. EYES: Pupils equal round and reactive. Extraocular motions intact. No scleral icterus. No injection or drainage. ENT: Nose without bleeding, purulent drainage or septal hematoma. Throat without erythema, tonsillar hypertrophy or exudate. Uvula midline. Airway patent. NECK: Trachea midline. No JVD or lymphadenopathy. Supple, nontender, no meningeal signs. CARDIOVASCULAR: Irregular rate and rhythm without murmurs, gallops, or rubs. RESPIRATORY: Exp. wheezing, faint ronchi. Chest wall tender to palpation, slight bruising to mid chest wall. GASTROINTESTINAL: Abdomen soft, non-tender, nondistended. No hepato-splenomegaly , or palpable masses. No guarding. MUSCULOSKELETAL: Extremities without clubbing, cyanosis, or edema. No joint tenderness, effusion, or edema noted. No calf tenderness. Negative Homans sign bilaterally. Toes with deformities. NEUROLOGICAL: Awakes to voice, oriented 3. No focal deficits. Urinary Catheter: Yes Assessment to: Continue Barnett insert reason: ICU Pt Getting Diuretics Vascular Central Line Catheter: No A/P Diagnosis: (1) Acute respiratory failure with hypoxia and hypercapnia (2) COPD (chronic obstructive pulmonary disease) (3) Hypothyroidism (4) Depression with anxiety (5) Anxiety (6) HTN (hypertension) (7) Atrial fibrillation (8) History of SC (myocardial infarction) (9) Hyponatremia Assessment and Plan 71-year-old female with history of COPD oxygen dependent, CAD, afib, hx lung cancer. Pt.admitted for COPD exacerbation from 10/13 to 10/15. Pt. returned to ED today around 0100 with SOB, was given duonebs x3 per EVAC and was reportedly tachypneic with significant wheezing upon arrival to ED. She was placed on BiPAP 12/5 30%. Was initially not tolerating BiPAP and intubation was contemplated however she was administered Ativan 1 mg IV and then was able to tolerate BiPAP and appeared much improved. Was admitted to ICU under [facility] care. Acute respiratory failure with hypoxia and hypercarbia-improving -Bipap as needed Continue with oxygen Continue with DuoNeb's Continue with IV steroids Pulmonology input appreciated CHF, acute on chronic, BNP was 472. -change to Lasix PO 20 mg BID Monitor intake and output - 2D echo pending Elevated trop, mild, poss. due to cardiac demand -serial cardiac enzymes indeterminate -continue with medical management Chronic A. fib, stable Continue with Lopressor 25 mg by mouth 3 times a day Continue with Xarelto -Continuous cardiac telemetry Hypertension Continue home medications Depression and anxiety Continue with home Continue with Xarelto for DVT prophylaxis Pepcid for GI prophylaxis wants full code improving slowly stable to transfer out of ICU D/W Dr. Caputo D/W pt. This patient was seen by myself and Dr. Caputo, this note is written on his behalf Problem Qualifiers (1) COPD (chronic obstructive pulmonary disease): Qualified Code: J44.1 - Chronic obstructive pulmonary disease with acute exacerbation (2) Hypothyroidism: Qualified Code: E03.9 - Hypothyroidism, unspecified type (3) HTN (hypertension): Qualified Code: I10 - Essential hypertension (4) Atrial fibrillation: Qualified Code: I48.2 - Chronic atrial fibrillation Sherron Mota Oct 17, 2016 12:17
[2016-10-17] MEDS: hydrALAZINE HCL 20 MG/ML VIAL IV PUSH PRN ×2 (15:00→21:18)
[2016-10-17] MEDS: RIVAROXABAN 15 MG TAB PO SCH (15:00)
[2016-10-17] MEDS: FUROSEMIDE 20 MG TAB PO SCH (18:00)
[2016-10-17] MEDS: diphenhydrAMINE HCL 25 MG CAP PO PRN (19:40)
--- NOTE | 2016-10-17 21:17 | EKG ---
Date Performed: 10/16/2016 Time Performed: 01:13:53 PTAGE: 71 years EKG: ATRIAL FIBRILLATION WITH RAPID VENTRICULAR RESPONSE NONSPECIFIC T-WAVE ABNORMALITY ABNORMAL RHYTHM ECG PREVIOUS TRACING : 10/13/2016 00.38 DOCTOR: Link Ribeiro Interpretating Date/Time 10/17/2016 21:15:40
--- NOTE | 2016-10-17 22:01 | EC ---
Study Study Date:10/17/2016 STUDY CONCLUSIONS SUMMARY - Left ventricle: The cavity size was normal. Wall thickness was normal. Systolic function was mildly to moderately reduced. The estimated ejection fraction was in the range of 40% to 45%. Wall motion was normal; there were no regional wall motion abnormalities. The study is not technically sufficient to allow evaluation of LV diastolic function. - Mitral valve: Mild regurgitation. - Pulmonary arteries: PA peak pressure: 46mm Hg (S). If LV function is below 40, please consider prescribing an ACEI or ARB or document rationale for non-use. PROCEDURE DATA STUDY STATUS: Elective. Procedure: Transthoracic echocardiography. Image quality was good. Scanning was performed from the parasternal, apical, and subcostal acoustic windows. Study completion: The patient tolerated the procedure well. Transthoracic echocardiography. M-mode, complete 2D, complete spectral Doppler, and color Doppler. Patient status: Inpatient. CARDIAC ANATOMY LEFT VENTRICLE: The cavity size was normal. Wall thickness was normal. Systolic function was mildly to moderately reduced. The estimated ejection fraction was in the range of 40% to 45%. Wall motion was normal; there were no regional wall motion abnormalities. The study is not technically sufficient to allow evaluation of LV diastolic function. AORTIC VALVE: Trileaflet; normal thickness leaflets. Doppler: Transvalvular velocity was within the normal range. There was no stenosis. No regurgitation. AORTA: Aortic root: The aortic root was normal in size. MITRAL VALVE: Structurally normal valve. Doppler: Transvalvular velocity was within the normal range. There was no evidence for stenosis. Mild regurgitation. LEFT ATRIUM: The atrium was normal in size. RIGHT VENTRICLE: The cavity size was normal. Wall thickness was normal. Systolic pressure was within the normal range. PULMONIC VALVE: Doppler: Transvalvular velocity was within the normal range. There was no evidence for stenosis. No regurgitation. TRICUSPID VALVE: Structurally normal valve. Doppler: Transvalvular velocity was within the normal range. Trace regurgitation. PULMONARY ARTERY: The main pulmonary artery was normal-sized. Systolic pressure was within the normal range. RIGHT ATRIUM: The atrium was normal in size. PERICARDIUM: There was no pericardial effusion. SYSTEMIC VEINS: Inferior vena cava: The vessel was normal in size. BASIC MEASUREMENTS ADULT Normal Left ventricle LV internal dimension, ED, chordal level, *40.5 mm 43-52 PLAX LV internal dimension, ES, chordal level, 34 mm 23-38 PLAX Fractional shortening, chordal level, PLAX *16 % >29 LV posterior wall thickness, ED 11.1 mm IVS/LVPW ratio, ED 1.16 <1.3 Ventricular septum Septal thickness, ED 12.9 mm Aortic valve Leaflet separation 20 mm 15-26 Right ventricle RV internal dimension, ED, PLAX 25.5 mm 19-38 BASIC MEASUREMENTS ADULT Normal Aortic valve Leaflet separation 20 mm 15-26 Aorta Root diameter, ED 37 mm 20-37 Left atrium Anterior-posterior dimension, ES 28 mm 19-40 LA/aortic root ratio 0.76 DOPPLER MEASUREMENTS ADULT Normal Main pulmonary artery Pressure, S *46 mm Hg =30 Tricuspid valve Regurgitant peak velocity 299 cm/s Peak RV-RA gradient, S 36 mm Hg Maximal regurgitant velocity 299 cm/s Systemic veins Estimated CVP 10 mm Hg Right ventricle RV pressure, S *46 mm Hg <30 LEGEND: Mean values are shown as u=mean value. Asterisk (*) sandoval values outside specified normal range. Prepared and signed by Link Ribeiro [id number]
[2016-10-18] VITALS (14 sets, daily range): BP systolic 97–146; BP diastolic 51–74; PULSE 69–88; RESP 13–25; TEMP 98–99; O2SAT 95–99
[2016-10-18] MEDS: INSULIN ASPART SUPPLEMENTAL SCALE SQ SCH ×4 (03:00→20:19)
[2016-10-18] MEDS: CHLORHEXIDINE GLUCONATE 2 % 1 PACK (2 CLOTHS) TOP SCH (03:53)
[2016-10-18] MEDS: AZTREONAM INJ 2,000 MG in SODIUM CHLORIDE 0.9% INJ 100 ML IV SCH ×3 (03:53→18:01)
[2016-10-18] MEDS: RESP: ALBUTEROL 2.5 MG/IPRATROPIUM 0.5 MG NEB (SCH) INH ×6 (04:00→19:59)
[2016-10-18] MEDS: LEVOTHYROXINE SODIUM 50 MCG TAB PO SCH (05:09)
[2016-10-18] MEDS: LIPASE/PROTEASE/AMYLASE (24,000/76,000/120,000) CAP PO SCH ×3 (08:34→17:59)
[2016-10-18] MEDS: METOPROLOL TARTRATE 25 MG TAB PO SCH ×3 (08:35→17:59)
[2016-10-18] MEDS: RIVAROXABAN 15 MG TAB PO SCH (08:35)
[2016-10-18] MEDS: FAMOTIDINE 20 MG TAB PO SCH ×2 (08:36→19:51)
[2016-10-18] MEDS: FUROSEMIDE 20 MG TAB PO SCH ×2 (08:36→17:59)
[2016-10-18] MEDS: QUEtiapine FUMARATE 25 MG TAB PO SCH ×2 (08:36→19:52)
[2016-10-18] MEDS: CITALOPRAM HYDROBROMIDE 20 MG TAB PO SCH (08:36)
[2016-10-18] MEDS: ASPIRIN 81 MG CHEW TAB CHEW SCH (08:36)
[2016-10-18] MEDS ORDERED: PHARMACY ORDERED LAB ONE (08:45)
[2016-10-18] MEDS: methylPREDNISolone SOD SUCC 40 MG/1 ML VIAL IV PUSH SCH ×3 (09:00→19:56)
[2016-10-18] MEDS: ALPRAZolam 0.5 MG TAB PO PRN ×3 (09:14→19:52)
[2016-10-18] MEDS: hydrALAZINE HCL 20 MG/ML VIAL IV PUSH PRN (10:14)
--- NOTE | 2016-10-18 11:47 | HHI.PR ---
Subjective Interval History awake alert and oriented on 3 l NC anxious per nursing staff thirsty 3L urine output overnight does not like the spicy food Vitals/Results Intake & Output 10/17/16 10/17/16 10/18/16 15:00 23:00 07:00 Intake Total 650 ml 236 ml 400 ml Output Total 2800 ml 1000 ml 2000 ml Balance -2150 ml -764 ml -1600 ml Intake Oral 500 ml 300 ml IV Total 150 ml 236 ml 100 ml Output Urine Total 2800 ml 1000 ml 2000 ml # Bowel Movements 0 Vital Signs Vital Signs Date Time Temp Pulse Resp B/P Pulse Ox O2 Delivery O2 Flow Rate FiO2 10/18/16 10:00 88 10/18/16 09:27 97 Nasal Cannula 3.00 10/18/16 08:00 98.2 75 13 146/63 96 10/18/16 08:00 75 10/18/16 06:00 73 10/18/16 04:00 80 10/18/16 04:00 98.6 80 17 115/56 98 10/18/16 02:00 81 10/18/16 00:00 82 10/18/16 00:00 98.4 82 15 142/65 97 10/17/16 22:00 97 10/17/16 20:00 103 10/17/16 20:00 98.4 103 23 169/94 98 10/17/16 20:00 96 Nasal Cannula 3.00 10/17/16 16:00 97.3 103 18 127/72 98 10/17/16 16:00 103 10/17/16 14:00 87 10/17/16 12:00 97.3 104 18 177/87 98 10/17/16 12:00 104 CBC/BMP: 10/17/16 0424 10/17/16 0242 Physical Exam General General Appearance: Well Developed, Well Nourished, No Acute Distress, Anxious Eyes Eye Exam: Pupils Equal, Pupils Reactive Throat Throat Exam: Oral Mucosa [place] & Moist Neck Neck Exam: Neck Supple, Trachea Midline Pulmonary Resp Exam: Clear Bilaterally, No Distress Cardiology CV Exam: Irregular Gastrointestinal/Abdomen GI Exam: Soft, Non-Tender Genitourinary Exam: Clear Urine Musculoskeletal MS Exam: Joints Intact Integumentary Skin Exam: Clear, Warm, Dry, Intact Neurologic Neuro Exam: Alert, Awake, Oriented Assessment/Plan Assessment/Plan A/P Diagnosis: (1) Acute respiratory failure with hypoxia and hypercapnia (2) COPD (chronic obstructive pulmonary disease) (3) Hypothyroidism (4) Depression with anxiety (5) Anxiety (6) HTN (hypertension) (7) Atrial fibrillation (8) History of ME (myocardial infarction) (9) Hyponatremia Assessment and Plan 71-year-old female with history of COPD oxygen dependent, CAD, afib, hx lung cancer. Pt.admitted for COPD exacerbation from 10/13 to 10/15. Pt. returned to ED today around 0100 with SOB, was given duonebs x3 per EVAC and was reportedly tachypneic with significant wheezing upon arrival to ED. She was placed on BiPAP 06/21 30%. Was initially not tolerating BiPAP and intubation was contemplated however she was administered Ativan 1 mg IV and then was able to tolerate BiPAP and appeared much improved. Was admitted to ICU under [facility] care. Acute respiratory failure with hypoxia and hypercarbia-improving -Bipap as needed Continue with oxygen Continue with DuoNeb's Continue with IV steroids Pulmonology input appreciated CHF, acute on chronic, BNP was 472. -change to Lasix PO 20 mg BID Monitor intake and output - 2D echo EF 40- 45% Elevated trop, mild, poss. due to cardiac demand -serial cardiac enzymes indeterminate -continue with medical management Chronic A. fib, stable Continue with Lopressor 25 mg by mouth 3 times a day Continue with Xarelto -Continuous cardiac telemetry Hypertension Continue home medications Depression and anxiety Continue with home meds - Seroquel increased Continue with Xarelto for DVT prophylaxis Pepcid for GI prophylaxis wants full code improving slowly stable to transfer out of ICU discussed with patient discussed with nursing staff no family at bed side labs in Sherry Dahl MD Oct 18, 2016 11:47
--- NOTE | 2016-10-18 19:30 | HHI.PR ---
Subjective Remarks Doing better .C/O some wheezing. On 3 L o2.On antibiotics Objective Vital Signs Date Time Temp Pulse Resp B/P Pulse Ox O2 Delivery O2 Flow Rate FiO2 10/18/16 18:00 82 10/18/16 16:00 78 10/18/16 16:00 98.0 78 20 143/74 97 10/18/16 14:00 80 10/18/16 12:00 69 10/18/16 12:00 99.0 69 14 97/51 97 10/18/16 10:00 88 10/18/16 09:27 97 Nasal Cannula 3.00 10/18/16 08:00 98.2 75 13 146/63 96 10/18/16 08:00 75 10/18/16 06:00 73 10/18/16 04:00 80 10/18/16 04:00 98.6 80 17 115/56 98 10/18/16 02:00 81 10/18/16 00:00 82 10/18/16 00:00 98.4 82 15 142/65 97 10/17/16 22:00 97 10/17/16 20:00 103 10/17/16 20:00 98.4 103 23 169/94 98 10/17/16 20:00 96 Nasal Cannula 3.00 I/O 10/17/16 10/17/16 10/17/16 10/18/16 10/18/16 10/18/16 07:00 15:00 23:00 07:00 15:00 23:00 Intake Total 450 ml 650 ml 236 ml 400 ml 780 ml Output Total 1400 ml 2800 ml 1000 ml 2000 ml 850 ml Balance -950 ml -2150 ml -764 ml -1600 ml -70 ml Intake Oral 300 ml 500 ml 300 ml 680 ml IV Total 150 ml 150 ml 236 ml 100 ml 100 ml Output Urine Total 1400 ml 2800 ml 1000 ml 2000 ml 850 ml # Bowel Movements 0 0 Result Diagram: 10/17/16 0424 10/17/16 0242 Objective Remarks Elderly W/F alert no distress HEENT: Exam unremarkable. Eyes without icterus. NECK: Without adenopathy or thyroid enlargement. Central trachea. CHEST: Few scattered rhonchi.Decreased breath sounds on right CARDIAC: PMI distant. Irregularity noted. ABDOMEN: Lax, bowel sounds audible. EXTREMITIES: No clubbing, cyanosis or edema. SKIN: Normal. No lymphadenopathy. Assessment and Plan Assessment and Plan IMPRESSION 1. COPD and exacerbation 2. Acute on chronic respiratory failure. 3. Coronary artery disease 4. Hypertension 5. Mood disorder Plan : 1. O2 at 3 L. 2. Nebs qid , duoneb. 3. Cont seroquel 50 mg BID 4 CBC,BMP in am. 5. Cont Azactam IV 6. Solumedrol 40 mg bid Wandy Preciado MD Oct 18, 2016 19:30
[2016-10-18] MEDS: diphenhydrAMINE HCL 25 MG CAP PO PRN (19:52)
[2016-10-19] VITALS (12 sets, daily range): BP systolic 115–158; BP diastolic 59–73; PULSE 68–88; RESP 18; TEMP 97.4–98.2; O2SAT 94–98
[2016-10-19] MEDS: RESP: ALBUTEROL 2.5 MG/IPRATROPIUM 0.5 MG NEB (SCH) INH ×7 (00:46→19:30)
[2016-10-19] MEDS: ALPRAZolam 0.5 MG TAB PO PRN ×4 (02:16→20:55)
[2016-10-19] MEDS: diphenhydrAMINE HCL 25 MG CAP PO PRN ×2 (02:16→20:56)
[2016-10-19] MEDS: INSULIN ASPART SUPPLEMENTAL SCALE SQ SCH ×4 (03:00→20:56)
[2016-10-19] MEDS: AZTREONAM INJ 2,000 MG in SODIUM CHLORIDE 0.9% INJ 100 ML IV SCH ×3 (03:24→18:37)
[2016-10-19] MEDS: CHLORHEXIDINE GLUCONATE 2 % 1 PACK (2 CLOTHS) TOP SCH (04:00)
[2016-10-19] MEDS: LEVOTHYROXINE SODIUM 50 MCG TAB PO SCH (06:12)
[2016-10-19] MEDS: methylPREDNISolone SOD SUCC 40 MG/1 ML VIAL IV PUSH SCH ×2 (09:00→20:54)
[2016-10-19] MEDS: ASPIRIN 81 MG CHEW TAB CHEW SCH (09:00)
[2016-10-19] MEDS: QUEtiapine FUMARATE 25 MG TAB PO SCH ×2 (09:06→20:56)
[2016-10-19] MEDS: FUROSEMIDE 20 MG TAB PO SCH ×2 (09:06→18:37)
[2016-10-19] MEDS: FAMOTIDINE 20 MG TAB PO SCH ×2 (09:07→20:55)
[2016-10-19] MEDS: CITALOPRAM HYDROBROMIDE 20 MG TAB PO SCH (09:07)
[2016-10-19] MEDS: METOPROLOL TARTRATE 25 MG TAB PO SCH ×3 (09:07→18:37)
[2016-10-19] MEDS: RIVAROXABAN 15 MG TAB PO SCH (09:07)
[2016-10-19] MEDS: LIPASE/PROTEASE/AMYLASE (24,000/76,000/120,000) CAP PO SCH ×3 (09:42→18:37)
--- NOTE | 2016-10-19 09:50 | HHI.PR ---
Subjective Remarks awake responsive and smiling appetite improving, No chest pain No SOB, O2 prn Encouraged to be OOB, chair (Brionna Fuentes) Objective Objective Results - Vital Signs Date Time Temp Pulse Resp B/P Pulse Ox O2 Delivery O2 Flow Rate FiO2 10/19/16 08:02 76 10/19/16 08:00 97.8 77 18 157/73 97 10/19/16 00:00 98.1 75 18 137/65 98 10/18/16 22:00 76 10/18/16 20:01 95 Nasal Cannula 3.00 10/18/16 20:00 75 10/18/16 20:00 98.3 75 25 140/66 95 10/18/16 18:00 82 10/18/16 16:00 78 10/18/16 16:00 98.0 78 20 143/74 97 10/18/16 14:00 80 10/18/16 12:00 69 10/18/16 12:00 99.0 69 14 97/51 97 10/18/16 10:00 88 I/O 10/18/16 10/18/16 10/18/16 10/19/16 10/19/16 10/19/16 07:00 15:00 23:00 07:00 15:00 23:00 Intake Total 400 ml 780 ml 450 ml 600 ml Output Total 2000 ml 850 ml 3350 ml 1850 ml Balance -1600 ml -70 ml -2900 ml -1250 ml Intake Oral 300 ml 680 ml 350 ml 600 ml IV Total 100 ml 100 ml 100 ml Output Urine Total 2000 ml 850 ml 3350 ml 1850 ml # Bowel Movements 0 0 0 (Brionna Fuentes) Result Diagram: 10/17/16 0424 10/17/16 0242 ROS General: Fatigue, Weakness, Other (10 point ROS done, positives noted) Pulmonary: SOB (none at rest today) /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 She is alert and awake , HEAD: Normocephalic without any lesion or mass noted. Facial features appear symmetric. edentuous OROPHARYNGEAL: Oropharynx without erythema or edema. NECK: Supple. Trachea midline without deviation. CARDIAC: Regular rhythm, regular rate, S1 and S2 are heard. Murmur none; no gallops or rubs. LUNGS:Low volumes Clear to auscultation bilaterally. few mild expiratory wheeze, no rhonchi or no rale. No use of accessory muscles on inspiration or expiration. ABDOMEN: ,round, Soft, nontender, no organomegaly or masses. Bowel sounds are heard in all four quadrants. No rebound. No guarding. EXTREMITIES: no edema. Pulses equal bilateral. Bilateral great toes twisted , athritic NEUROLOGICAL: Patient mood and affect appropriate. SKIN:Warm and moist Objective Remarks Im feeling better (Brionna Fuentes) A/P Assessment and Plan Acute respiratory failure, resolving back to her baseline alert, oriented, appetite returning -Bipap as needed oxygen, Svetlana's Pulmonology input appreciated Needs OOB with LE elevated. Up to BR with assistance and safety. PT ordered for eval and treat. Patient anxious and not real motivated. Encouraged again to be up. WBC ct. normal., moniot CHF, acute on chronic, BNP was 472. Lasix PO 20 mg BID luong catheter dcd. patient able to void on her own. Chronic A. fib, stable Lopressor, Xarelto telemetry vital signs reviewed, pt. afebrile Hypertension, stable. monitor Depression and anxiety, resolved, medical management Continue with Xarelto for DVT prophylaxis Pepcid for GI prophylaxis Bout of reflux today, HOB elevated 30 degrees, medical management DC planning Discussed With: Nurse, Family (pt.), Other (Dr. De La Rosa, seen on her behalf) ( Brionna Fuentes) Assessment and Plan patient seen and examied anticipate dischargesoon anxiety control discused with patient discussed with Brionna (Sherry De La Rosa MD) Brionna Fuentes Oct 19, 2016 09:49 Sherry De La Rosa MD Oct 19, 2016 23:14
[2016-10-19 10:28] LABS: AUTOMATED NEUTROPHIL # 2.9 TH/MM3 (1.8-7.7); BASOPHIL % 0.8 % (0.0-2.0); EOSINOPHIL # 0.3 TH/MM3 (0-0.4); EOSINOPHIL % 7.4 % (0.0-4.0); HEMATOCRIT 31.8 % (35.0-46.0); HEMO FLAGS DIFF FINAL; LYMPHOCYTE # 0.8 TH/MM3 (1.0-4.8); MEAN CELL VOLUME 88.3 FL (80.0-100.0); MEAN CORPUSCULAR HEMOGLOBIN 29.6 PG (27.0-34.0); MEAN CORPUSCULAR HGB CONC 33.6 % (32.0-36.0); NEUT % 63.8 % (16.0-70.0); PLATELET COUNT 184 TH/MM3 (150-450); RED CELL DISTRIBUTION WIDTH 15.1 % (11.6-17.2); WHITE BLOOD COUNT 4.6 TH/MM3 (4.0-11.0)
[2016-10-19 10:52] LABS: BICARBONATE 34.6 MEQ/L (21.0-32.0); POTASSIUM 3.5 MEQ/L (3.5-5.1)
--- NOTE | 2016-10-19 12:18 | PD.PN.STU ---
Subjective Remarks Patient resting comfortably in bed, no cough, no wheezing. on 3L O2 NC, sat 97% . Patient refused SoluMedrol dose this am because makes her "shakey". Complains of "burning stomach pain." Objective Vitals Vital Signs Date Time Temp Pulse Resp B/P Pulse Ox O2 Delivery O2 Flow Rate FiO2 10/19/16 11:37 98.2 68 18 123/60 97 10/19/16 11:31 98 Nasal Cannula 2.00 10/19/16 08:02 76 10/19/16 08:00 97.8 77 18 157/73 97 10/19/16 00:00 98.1 75 18 137/65 98 10/18/16 22:00 76 10/18/16 20:01 95 Nasal Cannula 3.00 10/18/16 20:00 75 10/18/16 20:00 98.3 75 25 140/66 95 10/18/16 18:00 82 10/18/16 16:00 78 10/18/16 16:00 98.0 78 20 143/74 97 10/18/16 14:00 80 I/O 10/18/16 10/18/16 10/18/16 10/19/16 10/19/16 10/19/16 07:00 15:00 23:00 07:00 15:00 23:00 Intake Total 400 ml 780 ml 450 ml 600 ml Output Total 2000 ml 850 ml 3350 ml 1850 ml Balance -1600 ml -70 ml -2900 ml -1250 ml Intake Oral 300 ml 680 ml 350 ml 600 ml IV Total 100 ml 100 ml 100 ml Output Urine Total 2000 ml 850 ml 3350 ml 1850 ml # Bowel Movements 0 0 0 Result Diagram: 10/19/16 1003 10/19/16 1003 Objective Remarks Elderly W/F alert no distress, resting comfortably. HEENT: Exam unremarkable. Eyes without icterus. NECK: Without adenopathy or thyroid enlargement. Central trachea. CHEST: Decreased breath sounds on right CARDIAC: PMI distant. Irregularity noted. ABDOMEN: Lax, bowel sounds audible, soft non tender. EXTREMITIES: No clubbing, cyanosis or edema. SKIN: Normal. No lymphadenopathy. PSYCH: Says feels "anxious", appears comfortable. A/P Assessment and Plan IMPRESSION 1. COPD and exacerbation 2. Acute on chronic respiratory failure. 3. Coronary artery disease 4. Hypertension 5. Mood disorder 6. Gastritis Plan : 1. Continue O2 at 3 L. 2. Nebs qid , duoneb. 3. Cont seroquel 50 mg BID 4. Cont Azactam IV 5. Continue Solumedrol 40 mg bid 6. Give Protonix 40mg, Malox 1 oz for gastritis Jessica Cooper M3 Oct 19, 2016 12:18
--- NOTE | 2016-10-19 13:06 | HHI.PR ---
Subjective Remarks Doing better .Less wheezing. On 3 L o2.On antibiotics Objective Vital Signs Date Time Temp Pulse Resp B/P Pulse Ox O2 Delivery O2 Flow Rate FiO2 10/19/16 11:37 98.2 68 18 123/60 97 10/19/16 11:31 98 Nasal Cannula 2.00 10/19/16 08:02 76 10/19/16 08:00 97.8 77 18 157/73 97 10/19/16 00:00 98.1 75 18 137/65 98 10/18/16 22:00 76 10/18/16 20:01 95 Nasal Cannula 3.00 10/18/16 20:00 75 10/18/16 20:00 98.3 75 25 140/66 95 10/18/16 18:00 82 10/18/16 16:00 78 10/18/16 16:00 98.0 78 20 143/74 97 10/18/16 14:00 80 I/O 10/18/16 10/18/16 10/18/16 10/19/16 10/19/16 10/19/16 07:00 15:00 23:00 07:00 15:00 23:00 Intake Total 400 ml 780 ml 450 ml 600 ml Output Total 2000 ml 850 ml 3350 ml 1850 ml Balance -1600 ml -70 ml -2900 ml -1250 ml Intake Oral 300 ml 680 ml 350 ml 600 ml IV Total 100 ml 100 ml 100 ml Output Urine Total 2000 ml 850 ml 3350 ml 1850 ml # Bowel Movements 0 0 0 Result Diagram: 10/19/16 1003 10/19/16 1003 Objective Remarks Elderly W/F alert no distress HEENT: Exam unremarkable. Eyes without icterus. NECK: Without adenopathy or thyroid enlargement. Central trachea. CHEST: Few scattered rhonchi.Decreased breath sounds on right CARDIAC: PMI distant. Irregularity noted. ABDOMEN: Lax, bowel sounds audible. EXTREMITIES: No clubbing, cyanosis or edema. SKIN: Normal. No lymphadenopathy. Assessment and Plan Assessment and Plan IMPRESSION 1. COPD and exacerbation 2. Acute on chronic respiratory failure. 3. Coronary artery disease 4. Hypertension 5. Mood disorder Plan : 1. O2 at 2 L. 2. Nebs qid , duoneb. 3. Cont seroquel 50 mg BID 4 Pepcid 20 mg bid 5. Cont Azactam IV 6. D/C Solumedrol , she refused Wandy Preciado MD Oct 19, 2016 13:06
[2016-10-19] MEDS: ALUMINUM/MAGNESIUM/SIMETH 30 ML CUP PO PRN (13:14)
[2016-10-20] VITALS (8 sets, daily range): BP systolic 114–149; BP diastolic 57–74; PULSE 73–105; RESP 18–22; TEMP 97.9–98.6; O2SAT 96–100
[2016-10-20] MEDS: RESP: ALBUTEROL 2.5 MG/IPRATROPIUM 0.5 MG NEB (SCH) INH (01:19)
[2016-10-20] MEDS: INSULIN ASPART SUPPLEMENTAL SCALE SQ SCH ×4 (03:00→21:00)
[2016-10-20] MEDS: CHLORHEXIDINE GLUCONATE 2 % 1 PACK (2 CLOTHS) TOP SCH (04:00)
[2016-10-20] MEDS: AZTREONAM INJ 2,000 MG in SODIUM CHLORIDE 0.9% INJ 100 ML IV SCH ×2 (04:25→11:52)
[2016-10-20] MEDS: ALUMINUM/MAGNESIUM/SIMETH 30 ML CUP PO PRN (04:28)
[2016-10-20] MEDS: LEVOTHYROXINE SODIUM 50 MCG TAB PO SCH (04:32)
[2016-10-20] MEDS: ALPRAZolam 0.5 MG TAB PO PRN ×3 (04:32→22:25)
[2016-10-20] MEDS: diphenhydrAMINE HCL 25 MG CAP PO PRN ×3 (04:32→22:25)
[2016-10-20] MEDS: RESP: ALBUTEROL 2.5 MG/3 ML NEB (PRN) INH (05:10)
[2016-10-20] MEDS: NITROGLYCERIN 0.4 MG SL 25 TABS/BTL SL PRN ×2 (06:02→07:32)
[2016-10-20] MEDS: methylPREDNISolone SOD SUCC 40 MG/1 ML VIAL IV PUSH SCH ×2 (09:00→21:00)
--- NOTE | 2016-10-20 09:01 | HHI.PR ---
Subjective Remarks awake up to BSC, anxious being by herself appetite improving, No chest pain No SOB, O2 prn encouraged to be up in chair. afebrile (Brionna Fuentes) Objective Objective Results - Vital Signs Date Time Temp Pulse Resp B/P Pulse Ox O2 Delivery O2 Flow Rate FiO2 10/20/16 08:07 97.9 105 20 149/72 96 10/20/16 03:50 98.2 81 18 118/57 99 10/20/16 01:19 99 Nasal Cannula 2.00 10/19/16 23:38 97.4 75 18 115/59 96 10/19/16 20:54 83 10/19/16 19:28 98.2 80 18 158/73 94 10/19/16 16:00 98.1 70 18 143/65 97 10/19/16 15:39 97 Nasal Cannula 2.00 10/19/16 12:00 98.2 71 18 123/60 97 10/19/16 11:37 98.2 68 18 123/60 97 10/19/16 11:31 98 Nasal Cannula 2.00 I/O 10/19/16 10/19/16 10/19/16 10/20/16 10/20/16 10/20/16 07:00 15:00 23:00 07:00 15:00 23:00 Intake Total 600 ml 480 ml 330 ml 960 ml Output Total 1850 ml 1800 ml 1125 ml 1775 ml Balance -1250 ml -1320 ml -795 ml -815 ml Intake Oral 600 ml 480 ml 330 ml 960 ml Output Urine Total 1850 ml 1800 ml 1125 ml 1775 ml # Bowel Movements 0 0 0 0 (Brionna Fuentes) Result Diagram: 10/19/16 1003 10/19/16 1003 ROS General: Fatigue (easily), Other (10 point ROS done positives noted anxiety generalized fatigue and shortness of breath with activity, constipation, other systems negative or unremarkable) Pulmonary: Cough (thick white), 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 Facial features appear symmetric. OROPHARYNGEAL: Oropharynx without erythema or edema. NECK: Supple. No nuchal rigidity or lymphadenopathy. Trachea midline without deviation. CARDIAC: Regular rhythm, regular rate, S1 and S2 are heard. Murmur none no gallops or rubs. LUNGS: Few wheezes to auscultation bilaterally. few rhonch. Exertional dyspnea ABDOMEN: Soft, nontender, no organomegaly or masses. Bowel sounds are heard in all four quadrants. No rebound. No guarding. EXTREMITIES: No edema. Pulses equal bilateral. NEUROLOGICAL: Patient mood and affect appropriate. No focal deficit SKIN:Warm and moist Objective Remarks My bowels haven't moved in 4 days (Brionna Fuentes) A/P Assessment and Plan Acute respiratory failure, resolving back to her baseline alert, oriented, appetite returning -Bipap as needed, not requiring oxygen, Svetlana's Pulmonology input appreciated Needs OOB and encouraged. PT ordered for eval and treat. Patient anxious and not real motivated. Encouraged again to be up. Encouraged to turn cough and deep breathe and to expel her sputum. Constipation, meds given today CHF, acute on chronic, BNP was 472. Lasix PO 20 mg BID Up to bedside commode, voiding Chronic A. fib, stable Lopressor, Xarelto telemetry vital signs reviewed, pt. afebrile Hypertension, stable. monitor Depression and anxiety, medical management Continue with Xarelto for DVT prophylaxis Pepcid for GI prophylaxis DC planning, possible today or tomorrow Discussed With: Nurse, Family (pt.), Other (Dr. Caputo, seen on his behalf) ( Brionna Fuentes) Assessment and Plan Patient seen and examined as above with her old pcp at bedside labs and meds reviewed some pf previous notes reviewed dw pt and her pcp at bedside pt is crying about her anxiety wants to inc her medication and also wants to see psychiatrist. sushil mcgraw about plan of care (Alistair Caputo MD) Brionna Fuentes Oct 20, 2016 09:01 Alistair Caputo MD Oct 20, 2016 14:04
--- NOTE | 2016-10-20 09:06 | EKG ---
Date Performed: 10/20/2016 Time Performed: 05:39:32 PTAGE: 71 years EKG: Sinus rhythm with first degree av block PACs Rightward axis Abnormal ECG PREVIOUS TRACING : 10/16/2016 22.03 DOCTOR: Rafael Turk Interpretating Date/Time 10/20/2016 09:05:03
[2016-10-20] MEDS: ASPIRIN 81 MG CHEW TAB CHEW SCH (11:49)
[2016-10-20] MEDS: CITALOPRAM HYDROBROMIDE 20 MG TAB PO SCH (11:49)
[2016-10-20] MEDS: FUROSEMIDE 20 MG TAB PO SCH ×2 (11:50→17:59)
[2016-10-20] MEDS: METOPROLOL TARTRATE 25 MG TAB PO SCH ×3 (11:50→17:59)
[2016-10-20] MEDS: LIPASE/PROTEASE/AMYLASE (24,000/76,000/120,000) CAP PO SCH ×3 (11:50→17:59)
[2016-10-20] MEDS: FAMOTIDINE 20 MG TAB PO SCH ×2 (11:51→22:25)
[2016-10-20] MEDS: POLYETHYLENE GLYCOL 17 GM PKG PO SCH (11:51)
[2016-10-20] MEDS: RIVAROXABAN 15 MG TAB PO SCH (11:51)
[2016-10-20] MEDS: QUEtiapine FUMARATE 25 MG TAB PO SCH ×2 (11:51→22:25)
[2016-10-20] MEDS ORDERED: BISACODYL 10 MG SUPP RECTAL ONE (14:30)
[2016-10-20] MEDS: NYSTAT/DIPHENHY/LIDO MOUTHWASH (Adult) 120ML SWISH-SWAL SCH ×2 (17:59→21:00)
--- NOTE | 2016-10-20 19:14 | HHI.PR ---
Subjective Remarks Anxious .No wheezing. On 3 L o2.On antibiotics. will go to rehab . Objective Vital Signs Date Time Temp Pulse Resp B/P Pulse Ox O2 Delivery O2 Flow Rate FiO2 10/20/16 16:03 98.2 78 22 146/58 100 10/20/16 12:07 98.2 89 20 143/74 100 10/20/16 10:51 98 Nasal Cannula 2.00 10/20/16 08:07 97.9 105 20 149/72 96 10/20/16 07:45 20 10/20/16 03:50 98.2 81 18 118/57 99 10/20/16 01:19 99 Nasal Cannula 2.00 10/19/16 23:38 97.4 75 18 115/59 96 10/19/16 20:54 83 10/19/16 19:28 98.2 80 18 158/73 94 I/O 10/19/16 10/19/16 10/19/16 10/20/16 10/20/16 10/20/16 07:00 15:00 23:00 07:00 15:00 23:00 Intake Total 600 ml 480 ml 330 ml 960 ml 840 ml Output Total 1850 ml 1800 ml 1125 ml 1775 ml Balance -1250 ml -1320 ml -795 ml -815 ml 840 ml Intake Oral 600 ml 480 ml 330 ml 960 ml 840 ml Output Urine Total 1850 ml 1800 ml 1125 ml 1775 ml # Voids 2 # Bowel Movements 0 0 0 0 0 Result Diagram: 10/19/16 1003 10/19/16 1003 Objective Remarks Elderly W/F alert no distress HEENT: Exam unremarkable. Eyes without icterus. NECK: Without adenopathy or thyroid enlargement. No JVD CHEST: Few scattered rhonchi.Decreased breath sounds on right CARDIAC: PMI distant. Irregularity noted. ABDOMEN: Lax, bowel sounds audible. EXTREMITIES: No clubbing, cyanosis or edema. SKIN: Normal. No lymphadenopathy. Assessment and Plan Assessment and Plan IMPRESSION 1. COPD and exacerbation 2. Acute on chronic respiratory failure. 3. Coronary artery disease 4. Hypertension 5. Mood disorder Plan : 1. O2 at 2 L. 2. Nebs qid , duoneb. 3. Cont seroquel 50 mg BID 4 Pepcid 20 mg bid 5. D/c Azactam IV 6.Add Levaquin 500 mg daily X 4 Wandy Preciado MD Oct 20, 2016 19:14
[2016-10-21] VITALS (10 sets, daily range): BP systolic 118–166; BP diastolic 56–93; PULSE 63–100; RESP 16–20; TEMP 97.7–98.4; O2SAT 91–100
[2016-10-21] MEDS: INSULIN ASPART SUPPLEMENTAL SCALE SQ SCH ×4 (03:00→21:00)
[2016-10-21] MEDS: CHLORHEXIDINE GLUCONATE 2 % 1 PACK (2 CLOTHS) TOP SCH (04:00)
[2016-10-21] MEDS: ALPRAZolam 0.5 MG TAB PO PRN ×2 (06:55→12:54)
[2016-10-21] MEDS: diphenhydrAMINE HCL 25 MG CAP PO PRN ×2 (06:55→12:54)
[2016-10-21] MEDS: LEVOTHYROXINE SODIUM 50 MCG TAB PO SCH (06:55)
[2016-10-21] MEDS: LIPASE/PROTEASE/AMYLASE (24,000/76,000/120,000) CAP PO SCH ×3 (08:54→18:00)
[2016-10-21] MEDS: QUEtiapine FUMARATE 25 MG TAB PO SCH ×2 (08:54→21:14)
[2016-10-21] MEDS: FAMOTIDINE 20 MG TAB PO SCH ×2 (08:54→21:14)
[2016-10-21] MEDS: LEVOFLOXACIN 500 MG TAB PO SCH (08:55)
[2016-10-21] MEDS: FUROSEMIDE 20 MG TAB PO SCH ×2 (08:55→18:00)
[2016-10-21] MEDS: POLYETHYLENE GLYCOL 17 GM PKG PO SCH (08:55)
[2016-10-21] MEDS: methylPREDNISolone SOD SUCC 40 MG/1 ML VIAL IV PUSH SCH (08:55)
[2016-10-21] MEDS: ASPIRIN 81 MG CHEW TAB CHEW SCH (08:55)
[2016-10-21] MEDS: METOPROLOL TARTRATE 25 MG TAB PO SCH ×3 (08:56→18:00)
[2016-10-21] MEDS: RIVAROXABAN 15 MG TAB PO SCH (08:56)
[2016-10-21] MEDS: CITALOPRAM HYDROBROMIDE 20 MG TAB PO SCH (08:56)
[2016-10-21] MEDS: NYSTAT/DIPHENHY/LIDO MOUTHWASH (Adult) 120ML SWISH-SWAL SCH ×4 (08:57→21:00)
--- NOTE | 2016-10-21 10:04 | HHI.PR ---
Subjective Remarks Less anxious "I'm trying to work with it" Minimal shortness of breath with activity Some wheezing this morning Patient somewhat agreeable with going to rehabilitation Constipated today No fever Objective Objective Results - Vital Signs Date Time Temp Pulse Resp B/P Pulse Ox O2 Delivery O2 Flow Rate FiO2 10/21/16 08:14 96 Nasal Cannula 2.00 10/21/16 08:00 98.2 98 18 159/93 91 10/21/16 04:00 97.7 74 18 166/78 98 10/21/16 00:00 98.4 67 16 119/56 99 10/20/16 20:56 99 Nasal Cannula 2.00 10/20/16 20:00 98.6 73 18 114/71 96 10/20/16 20:00 74 10/20/16 16:03 98.2 78 22 146/58 100 10/20/16 12:07 98.2 89 20 143/74 100 10/20/16 10:51 98 Nasal Cannula 2.00 I/O 10/20/16 10/20/16 10/20/16 10/21/16 10/21/16 10/21/16 07:00 15:00 23:00 07:00 15:00 23:00 Intake Total 960 ml 840 ml 240 ml 0 ml Output Total 1775 ml Balance -815 ml 840 ml 240 ml 0 ml Intake Oral 960 ml 840 ml 240 ml 0 ml Output Urine Total 1775 ml # Voids 2 2 0 # Bowel Movements 0 0 2 0 Result Diagram: 10/19/16 1003 10/19/16 1003 Imaging Last Impressions Chest X-Ray 10/16/16 0103 Signed Impressions: Service Date/Time: Sunday, October 16, 2016 01:19 - CONCLUSION: Examination quality is significantly degraded by motion artifact. There is complete opacification of the right hemithorax. Questionable changes of the left lung base may represent interstitial versus air space opacity. 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 SKIN: No rashes, ecchymoses or lesions. Cool and dry. HEAD: Atraumatic. Normocephalic. No temporal or scalp tenderness. EYES: Pupils equal round and reactive. Extraocular motions intact. No scleral icterus. No injection or drainage. ENT: Nose without bleeding, purulent drainage or septal hematoma. Throat without erythema, tonsillar hypertrophy or exudate. Uvula midline. Airway patent. NECK: Trachea midline. No JVD or lymphadenopathy. Supple, nontender, no meningeal signs. CARDIOVASCULAR: Irregular rate and rhythm without murmurs, gallops, or rubs. RESPIRATORY: Exp. wheezing. Chest wall tender to palpation, slight bruising to mid chest wall. GASTROINTESTINAL: Abdomen soft, non-tender, nondistended. No hepato-splenomegaly , or palpable masses. No guarding. MUSCULOSKELETAL: Extremities without clubbing, cyanosis, or edema. No joint tenderness, effusion, or edema noted. No calf tenderness. Negative Homans sign bilaterally. Toes with deformities. NEUROLOGICAL: Awakes to voice, oriented 3. Anxious. No focal deficits. Urinary Catheter: No Vascular Central Line Catheter: No A/P Diagnosis: (1) Acute respiratory failure with hypoxia and hypercapnia (2) COPD (chronic obstructive pulmonary disease) (3) Hypothyroidism (4) Depression with anxiety (5) Anxiety (6) HTN (hypertension) (7) Atrial fibrillation (8) History of IL (myocardial infarction) (9) Hyponatremia Assessment and Plan 71-year-old female with history of COPD oxygen dependent, CAD, afib, hx lung cancer. Pt.admitted for COPD exacerbation from 10/13 to 10/15. Pt. returned to ED today around 0100 with SOB, was given duonebs x3 per EVAC and was reportedly tachypneic with significant wheezing upon arrival to ED. She was placed on BiPAP 12/5 30%. Was initially not tolerating BiPAP and intubation was contemplated however she was administered Ativan 1 mg IV and then was able to tolerate BiPAP and appeared much improved. Was admitted to ICU under [facility] care. Acute respiratory failure with hypoxia and hypercarbia-improving -Bipap as needed Continue with oxygen Continue with DuoNeb's Has been refusing IV Solu-Medrol, we will discontinue Pulmonology input appreciated, started on Levaquin CHF, acute on chronic, BNP was 472. Stable -Continue with Lasix PO 20 mg BID Monitor intake and output - 2D echo EF 40-45% Elevated trop, mild, poss. due to cardiac demand -serial cardiac enzymes indeterminate -continue with medical management Chronic A. fib, stable Continue with Lopressor 25 mg by mouth 3 times a day Continue with Xarelto -Continuous cardiac telemetry Hypertension, stable. Continue home medications Depression and anxiety Continue with Xanax when necessary -Remains anxious, psychiatry has been consulted Continue with Seroquel 50 mm by mouth twice a day Continue with Xarelto for DVT prophylaxis Pepcid for GI prophylaxis Full code constipated, bowel regimen PRN, add Lactulose Case management consultation for discharge planning, can benefit from SNF D/W RN D/W Dr. De La Rosa D/W pt. D/W CM This patient was seen by myself and Dr. De La Rosa, this note is written on his behalf Problem Qualifiers (1) COPD (chronic obstructive pulmonary disease): Qualified Code: J44.1 - Chronic obstructive pulmonary disease with acute exacerbation (2) Hypothyroidism: Qualified Code: E03.9 - Hypothyroidism, unspecified type (3) HTN (hypertension): Qualified Code: I10 - Essential hypertension (4) Atrial fibrillation: Qualified Code: I48.2 - Chronic atrial fibrillation Sherron Mota Oct 21, 2016 10:04
[2016-10-21] MEDS ORDERED: LACTULOSE SYRUP 20 GM/30 ML CUP PO PRN (10:15)
[2016-10-21] MEDS: RESP: ALBUTEROL 2.5 MG/3 ML NEB (PRN) INH ×2 (11:31→20:09)
--- NOTE | 2016-10-21 13:08 | PD.PN.STU ---
Subjective Remarks Patient sitting up comfortably in bed, getting up and going to restroom. On NC O2 2L, sat 100%. Minimal wheezing, no coughing, no SOB. Ready to go to rehab. Objective Vitals Vital Signs Date Time Temp Pulse Resp B/P Pulse Ox O2 Delivery O2 Flow Rate FiO2 10/21/16 12:00 98.0 63 18 118/56 100 10/21/16 08:14 96 Nasal Cannula 2.00 10/21/16 08:00 98.2 98 18 159/93 91 10/21/16 04:00 97.7 74 18 166/78 98 10/21/16 00:00 98.4 67 16 119/56 99 10/20/16 20:56 99 Nasal Cannula 2.00 10/20/16 20:00 98.6 73 18 114/71 96 10/20/16 20:00 74 10/20/16 16:03 98.2 78 22 146/58 100 I/O 10/20/16 10/20/16 10/20/16 10/21/16 10/21/16 10/21/16 07:00 15:00 23:00 07:00 15:00 23:00 Intake Total 960 ml 840 ml 240 ml 0 ml Output Total 1775 ml Balance -815 ml 840 ml 240 ml 0 ml Intake Oral 960 ml 840 ml 240 ml 0 ml Output Urine Total 1775 ml # Voids 2 2 0 # Bowel Movements 0 0 2 0 Result Diagram: 10/19/16 1003 10/19/16 1003 Objective Remarks Elderly W/F alert no distress HEENT: Exam unremarkable. Eyes without icterus. NECK: Without adenopathy or thyroid enlargement. No JVD CHEST: Minimal wheezes throughout. Decreased breath sounds on right CARDIAC: PMI distant. Irregularity noted. ABDOMEN: Soft, non tender. bowel sounds audible. EXTREMITIES: No clubbing, cyanosis or edema. SKIN: Normal. No lymphadenopathy. A/P Assessment and Plan IMPRESSION 1. COPD and exacerbation 2. Acute on chronic respiratory failure RESOLVED 3. Coronary artery disease 4. Hypertension 5. Mood disorder Plan : 1. Continue O2 at 2 L. 2. Nebs qid , duoneb. 3. Cont seroquel 50 mg BID 4 Continue Pepcid 20 mg bid for gastritis 5. Awaiting psych consult per admitting physician 6. Continue Levaquin 500 mg daily X 4 7. Awaiting bottle caser for rehab placement and DC Jessica Cooper M3 Oct 21, 2016 13:08
--- NOTE | 2016-10-21 16:50 | PD.CONS ---
Provisional Diagnosis Admission Date Oct 16, 2016 at 03:12 History of Present Illness Service Psychiatry Consult Requested By Primary Care Physician Rebekah Smith MD HPI The patient is a 70 years old woman, domiciled alone in [place] , , retired, on SSD, with psychiatric history of anxiety and depression , 1 previous hospitalization, she is an outpatient psychiatric care, she sees monthly and nurse practitioner, no previous suicide attempts, extensive history of COPD, obesity, lung cancer, A. fib, renal mass, hospitalized due to respiratory failure and pneumonia. Consulted to psychiatry due to anxiety. Patient is admitted for COPD exacerbation from 10/13 to 10/15. Pt. returned to ED today around 0100 with SOB, was given duonebs x3 per EVAC and was reportedly tachypneic with significant wheezing upon arrival to ED. She was placed on BiPAP 06/21 30%. Was initially not tolerating BiPAP and intubation was contemplated however she was administered Ativan 1 mg IV and then was able to tolerate BiPAP and appeared much improved. Was admitted to ICU under [facility] care. No consulted to psychiatry for management of anxiety. Significant evaluation today patient is found calm, cooperative, she immediately recognized me from previous encounter. Patient stated that she is feeling better because "I am breathing better now". Patient states that as she is breathing better her anxiety have also improved. However, she has episodes of acute anxiety during the day, she describes them as severe, episodic, sudden. She reports finding mood, she feels sad on and off secondary to his underlying medical conditions. But she denies anhedonia, she denies helplessness, she denies hopelessness, she denies suicidal or homicidal ideation, she denies visual and auditory hallucinations. Patient is fully oriented 3, no confusion, no cognitive impairment observed. Patient denies the use of drugs and alcohol. Review of Systems Constitutional: DENIES: Diaphoretic episodes, Fatigue, Fever, Weight gain, Weight loss, Chills, Dizziness, Change in appetite, Night Sweats Endocrine: DENIES: Abnorml menstrual pattern, Heat/cold intolerance, Polydipsia , Polyuria, Polyphagia Eyes: DENIES: Blurred vision, Diplopia, Eye inflammation, Eye pain, Vision loss , Photosensitivity, Double Vision Ears, nose, mouth, throat: DENIES: Tinnitus, Hearing loss, Vertigo, Nasal discharge, Oral lesions, Throat pain, Hoarseness, Ear Pain, Running Nose, Epistaxis, Sinus Pain, Toothache, Odynophagia Respiratory: COMPLAINS OF: Shortness of breath Cardiovascular: DENIES: Chest pain, Palpitations, Syncope, Dyspnea on Exertion , PND, Lower Extremity Edema, Orthopnea, Claudication Gastrointestinal: DENIES: Abdominal pain, Black stools, Bloody stools, Constipation, Diarrhea, Nausea, Vomiting, Difficulty Swallowing, Anorexia Musculoskeletal: DENIES: Joint pain, Muscle aches, Stiffness, Joint Swelling, Back pain, Neck pain Integumentary: DENIES: Abnormal pigmentation, Pruritus, Rash, Nail changes, Breast masses, Breast skin changes, Nipple discharge Hematologic/lymphatic: DENIES: Bruising, Lymphadenopathy Immunologic/allergic: DENIES: Eczema, Urticaria Neurologic: DENIES: Abnormal gait, Headache, Localized weakness, Paresthesias, Seizures, Speech Problems, Tremor, Poor Balance Psychiatric: COMPLAINS OF: Anxiety, DENIES: Confusion, Mood changes, Depression, Hallucinations, Agitation, Suicidal Ideation, Homicidal Ideation, Delusions Past Family Social History Coded Allergies: Adhesives (Verified Allergy, Severe, RASK, 07/29/16) skin breakdown Calcium Channel Blockers (Verified Allergy, Severe, DIFFICULTY BREATHING, 07/29/16) Entex LA (Verified Allergy, Severe, Anaphylaxis, 07/29/16) Marcaine (Verified Allergy, Severe, DIFFICULTY BREATHING, 10/13/16) Minocin (Verified Allergy, Severe, DIFFICULTY BREATHING, 10/13/16) Nonsteroidal Anti-Inflammatory Agts (Verified Allergy, Severe, DIFFICULTY BREATHING, 10/13/16) PEANUTS (Verified Allergy, Severe, lips swelling, 10/13/16) Penicillin (Verified Allergy, Severe, DIFFICULTY BREATHING, 10/13/16) Prilosec (Verified Allergy, Severe, DIFFICULTY BREATHING, 10/13/16) Promethazine (Verified Allergy, Severe, DIFFICULTY BREATHING, 10/13/16) Sulfa (Verified Allergy, Severe, DIFFICULTY BREATHING, 10/13/16) Prednisone (Verified Allergy, Intermediate, rash and lips swell, 10/13/16) Zyrtec (Verified Allergy, Intermediate, rash, 10/13/16) Vancomycin (Verified Allergy, Mild, Flushing, 10/17/16) lips tingling Zyprexa (Verified Adverse Reaction, Severe, Severe vomiting., 10/13/16) Fluticasone (Verified Adverse Reaction, Intermediate, Rawness of the skin around the nose. Inhaled steroids do , 10/13/16) the same to her mouth. Omeprazole (Verified Adverse Reaction, Intermediate, Boyce funny, 10/13/16) Zithromax (Verified Adverse Reaction, Intermediate, Says it made her jittery and it was harder to breathe. 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 Not sure would get same reaction to Injectable. Lian Huber MD. Jacob (Adverse Reaction, Severe, Caused amnesia and a fall. , 07/10/13) Active Scripts Prednisone (21) 10 mg tab Dose Pack 10 Mg Pack10 Mg PO DIRECTED #1 DSPK Ref 0 Prov:Alistair Caputo MD 10/15/16 Hydrocodone-Acetaminophen 5-325 mg Tab1 Tab PO Q4H PRN (PAIN SCALE 6 TO 10) #15 TAB Prov:Alistair Caputo MD 07/31/16 Alprazolam (Xanax)0.5 Mg Tab0.5 Mg PO Q8H PRN (anxiety) #15 TAB Prov:Alistair Caputo MD 07/31/16 Rivaroxaban (Xarelto)15 Mg Tab20 Mg PO DAILY #60 TAB Prov:John Ewing MD 06/29/16 Quetiapine 25 Mg Tab25 Mg PO BID #30 TAB Prov:John Ewing MD 06/29/16 Pancrelipase (Creon)24,000-76,000-120,000 Units Cap1 Cap PO TID #90 CAP Prov:John Ewing MD 06/29/16 Citalopram (Celexa)20 Mg Tab40 Mg PO DAILY #30 TAB Prov:John Ewing MD 06/29/16 Reported Medications Metoprolol Tartrate 25 Mg Tab25 Mg PO TID #60 TAB Ref 0 2/16/17 Ipratropium Holton 1 Pow Pow0.5 Mg NEB TID 06/17/16 Levothyroxine 50 Mcg Tab50 Mcg PO DAILY #30 TAB Ref 0 06/17/16 Ranitidine (Zantac 150 Maximum Strength)150 Mg Pul237 Mg PO BID 06/17/16 Vlzuxtqt-Ubxruouri-Vjjnusvhtlq Liq (Mylanta Liq)200-200-20 Mg/5 Ml Susp30 Ml PO Q8HR Ref 0 Take between meals or as directed. Shake well. Maximum 120 ml/24 hrs. 06/17/16 Potassium Chloride ER 10 Meq Cap10 Meq PO DAILY #30 CAP Ref 0 06/16/16 Current Medications Medications (Trade) Dose Ordered Sig/Lorie Route Start Time Stop Time Status Last Admin (NS Flush) 2 ml UNSCH PRN IVF 10/16/16 01:15 (Tylenol) 650 mg Q6H PRN PO 10/16/16 03:30 10/19/16 02:17 (Zofran Inj) 4 mg Q6H PRN IV 10/16/16 03:30 10/17/16 12:00 Miscellaneous Information 1 Q361D XX 10/16/16 03:30 (Chlorhexidine 2% Cloth) Taper DAILY@04 TOP 10/16/16 04:00 10/12/17 03:59 10/18/16 03:53 (Chlorhexidine 2% Cloth) 3 pack UNSCH PRN TOP 10/16/16 03:30 (CeleXA) 40 mg DAILY PO 10/16/16 09:00 10/21/16 08:56 (Synthroid) 50 mcg DAILY@06 PO 10/16/16 09:00 10/21/16 06:55 (Lopressor) 25 mg TID PO 10/16/16 09:00 10/21/16 12:54 (Creon 24-76-120) 1 cap TID PO 10/16/16 09:00 10/21/16 12:54 (Aspirin Chew) 81 mg DAILY CHEW 10/16/16 09:00 10/21/16 08:55 (D50w (Vial) Inj) 25 ml UNSCH PRN IV PUSH 10/16/16 09:00 (Glucagon Inj) 1 mg UNSCH PRN OTHER 10/16/16 09:00 (NovoLOG SUPPLEMENTAL SCALE) 1 Q6H SQ 10/16/16 09:00 10/17/16 15:00 (Xarelto) 15 mg DAILY PO 10/17/16 15:00 10/21/16 08:56 (Apresoline Inj) 10 mg Q6H PRN IV PUSH 10/16/16 12:30 10/18/16 10:14 (Lasix) 20 mg BID@09,18 PO 10/17/16 18:00 10/21/16 08:55 (Xanax) 0.5 mg Q6H PRN PO 10/17/16 14:00 10/21/16 12:54 (Benadryl) 25 mg Q6H PRN PO 10/17/16 16:30 10/21/16 12:54 (SEROquel) 50 mg BID PO 10/18/16 21:00 10/21/16 08:54 (Mag-Al Plus Susp Liq) 30 ml Q6H PRN PO 10/19/16 13:15 10/20/16 04:28 (Nitrostat Sl) 0.4 mg Q5M PRN SL 10/20/16 05:45 10/20/16 07:32 (Miralax) 17 gm DAILY PO 10/20/16 09:00 10/21/16 08:55 (Magic Mouthwash Adult Liq) 5 ml QID SWISH-SWAL 10/20/16 18:00 10/20/16 17:59 (Levaquin) 500 mg DAILY PO 10/21/16 09:00 10/21/16 08:55 (Lactulose Liq) 30 ml DAILY PRN PO 10/21/16 10:15 (Pepcid) 10 mg Q12HR PO 10/21/16 21:00 Family History She denies Social History Patient lives alone in [place], she has a home health aid , who comes 3 times a week, she is unemployed, single, highest level of education is high school Physical Exam Vital Signs Vital Signs Date Time Temp Pulse Resp B/P Pulse Ox O2 Delivery O2 Flow Rate FiO2 10/21/16 16:17 100 10/21/16 16:00 98.4 20 133/63 100 10/21/16 08:14 Nasal Cannula 2.00 I/O 10/20/16 10/20/16 10/21/16 08:00 16:00 00:00 Intake Total 960 ml 840 ml 240 ml Output Total 1775 ml Balance -815 ml 840 ml 240 ml Mental Status Examination Speech: Unremarkable Orientation: x3 Memory: Unremarkable Thought Process: Logical Thought Content: Depersonal Hallucination Type: None Suicidal Ideation: No Previous Suicide Attempts: No Homicidal Ideation: No Previous Homicide Attempts: No Insight: Good Affect: Good Affect if Inappropriate: Flat Mood: Appropriate Motor Activity: Normal gait Assessment & Plan Problem List: (1) Adjustment disorder with mixed anxiety and depressed mood Assessment & Plan: Psychotic evaluation patient reports acute anxiety and mild symptomatology of depression related with underlying decompensation of medical conditions. She denies suicidal and homicidal ideation, she denies visual and auditory hallucinations. She does not meet criteria for psychiatric hospitalization at this moment. Continue citalopram 40 mg for depressive symptoms, continue alprazolam 0.5 mg when necessary anxiety every 6 hours, continue Seroquel 50 mg twice a day for mood swings, add clonazepam 0.5 mg twice a day for anxiety. Extensive psycho education, supportive motivation provided. We'll follow-up. ICD Code: F43.23 Assessment & Plan Estimated LOS: Kenji Live MD Oct 21, 2016 16:50
--- NOTE | 2016-10-21 18:26 | HHI.PR ---
Subjective Remarks Anxious .No wheezing. On 3 L o2.On antibiotics. will go to rehab as planned. Objective Vital Signs Date Time Temp Pulse Resp B/P Pulse Ox O2 Delivery O2 Flow Rate FiO2 10/21/16 16:17 100 10/21/16 16:00 98.4 69 20 133/63 100 10/21/16 12:00 98.0 63 18 118/56 100 10/21/16 08:14 96 Nasal Cannula 2.00 10/21/16 08:00 98.2 98 18 159/93 91 10/21/16 04:00 97.7 74 18 166/78 98 10/21/16 00:00 98.4 67 16 119/56 99 10/20/16 20:56 99 Nasal Cannula 2.00 10/20/16 20:00 98.6 73 18 114/71 96 10/20/16 20:00 74 I/O 10/20/16 10/20/16 10/20/16 10/21/16 10/21/16 10/21/16 07:00 15:00 23:00 07:00 15:00 23:00 Intake Total 960 ml 840 ml 240 ml 0 ml 960 ml Output Total 1775 ml Balance -815 ml 840 ml 240 ml 0 ml 960 ml Intake Oral 960 ml 840 ml 240 ml 0 ml 960 ml Output Urine Total 1775 ml # Voids 2 2 0 1 # Bowel Movements 0 0 2 0 1 Result Diagram: 10/19/16 1003 10/19/16 1003 Objective Remarks Elderly W/F alert no distress HEENT: Exam unremarkable. Eyes without icterus. NECK: Without adenopathy or thyroid enlargement. No JVD CHEST: Few scattered rhonchi.Decreased breath sounds on right CARDIAC: PMI distant. Irregularity noted. ABDOMEN: Lax, bowel sounds audible. EXTREMITIES: No clubbing, cyanosis but has 1 + edema. SKIN: Normal. No lymphadenopathy. Assessment and Plan Assessment and Plan IMPRESSION 1. COPD and exacerbation 2. Acute on chronic respiratory failure. 3. Coronary artery disease 4. Hypertension 5. Mood disorder Plan : 1. O2 at 2 L. 2. Nebs qid , duoneb. 3. Cont seroquel 50 mg BID 4 Pepcid 20 mg bid 5. OK to rehab anytime 6. Levaquin 500 mg daily X 4 D'Mckenna,V. Hasmukh MD Oct 21, 2016 18:26
[2016-10-21] MEDS: clonazePAM 0.5 MG TAB PO SCH (21:14)
[2016-10-22 00:09] VITALS: BP 159/70; PULSE 83; RESP 20; TEMP 98.7; O2SAT 98
[2016-10-22] MEDS: INSULIN ASPART SUPPLEMENTAL SCALE SQ SCH ×2 (03:00→09:00)
[2016-10-22 04:00] VITALS: BP 146/82; PULSE 87; RESP 20; TEMP 97.5; O2SAT 100
[2016-10-22] MEDS: CHLORHEXIDINE GLUCONATE 2 % 1 PACK (2 CLOTHS) TOP SCH (04:00)
[2016-10-22] MEDS: LEVOTHYROXINE SODIUM 50 MCG TAB PO SCH (06:57)
[2016-10-22] MEDS: ALPRAZolam 0.5 MG TAB PO PRN ×2 (06:57→13:20)
[2016-10-22 08:00] VITALS: BP 155/72; PULSE 87; RESP 20; TEMP 98.3; O2SAT 99
[2016-10-22 08:20] VITALS: PULSE 102
[2016-10-22] MEDS: NYSTAT/DIPHENHY/LIDO MOUTHWASH (Adult) 120ML SWISH-SWAL SCH ×2 (09:00→13:00)
[2016-10-22] MEDS: FAMOTIDINE 20 MG TAB PO SCH (09:14)
[2016-10-22] MEDS: FUROSEMIDE 20 MG TAB PO SCH (09:51)
[2016-10-22] MEDS: clonazePAM 0.5 MG TAB PO SCH (09:51)
[2016-10-22] MEDS: CITALOPRAM HYDROBROMIDE 20 MG TAB PO SCH (09:51)
[2016-10-22] MEDS: LEVOFLOXACIN 500 MG TAB PO SCH (09:52)
[2016-10-22] MEDS: ASPIRIN 81 MG CHEW TAB CHEW SCH (09:52)
[2016-10-22] MEDS: RIVAROXABAN 15 MG TAB PO SCH (09:52)
[2016-10-22] MEDS: LIPASE/PROTEASE/AMYLASE (24,000/76,000/120,000) CAP PO SCH ×2 (09:52→12:22)
[2016-10-22] MEDS: ALUMINUM/MAGNESIUM/SIMETH 30 ML CUP PO PRN (09:53)
[2016-10-22] MEDS: QUEtiapine FUMARATE 25 MG TAB PO SCH (09:53)
[2016-10-22] MEDS: METOPROLOL TARTRATE 25 MG TAB PO SCH ×2 (09:53→12:23)
[2016-10-22] MEDS: POLYETHYLENE GLYCOL 17 GM PKG PO SCH (09:55)
[2016-10-22] MEDS ORDERED: QUET1TAB7 PO (10:01)
[2016-10-22] MEDS ORDERED: LEVA500T PO (10:01)
[2016-10-22] MEDS ORDERED: ALBU0.08 INH (10:01)
[2016-10-22] MEDS ORDERED: FURO20TA PO (10:01)
--- NOTE | 2016-10-22 10:05 | HHI.PR ---
Subjective Remarks anxious, tearful multiple complaints because medications are late. c/o heartburn, constipation per nursing documentation, had BM yesterday no cp no sob Objective Objective Results - Vital Signs Date Time Temp Pulse Resp B/P Pulse Ox O2 Delivery O2 Flow Rate FiO2 10/22/16 08:20 102 10/22/16 08:00 98.3 87 20 155/72 99 10/22/16 04:00 97.5 87 20 146/82 100 10/22/16 00:09 98.7 83 20 159/70 98 10/21/16 20:11 98 Nasal Cannula 2.00 10/21/16 20:00 98.3 75 20 158/67 100 10/21/16 19:20 86 10/21/16 16:17 100 10/21/16 16:00 98.4 69 20 133/63 100 10/21/16 12:00 98.0 63 18 118/56 100 10/21/16 12:00 100 I/O 10/21/16 10/21/16 10/21/16 10/22/16 10/22/16 10/22/16 07:00 15:00 23:00 07:00 15:00 23:00 Intake Total 0 ml 960 ml 720 ml 720 ml Balance 0 ml 960 ml 720 ml 720 ml Intake Oral 0 ml 960 ml 720 ml 720 ml # Voids 0 1 2 2 # Bowel Movements 0 1 0 Result Diagram: 10/19/16 1003 10/19/16 1003 Imaging Last Impressions Chest X-Ray 10/16/16 0103 Signed Impressions: Service Date/Time: Sunday, October 16, 2016 01:19 - CONCLUSION: Examination quality is significantly degraded by motion artifact. There is complete opacification of the right hemithorax. Questionable changes of the left lung base may represent interstitial versus air space opacity. Hasmukh Willett MD ROS General: Other (anxious, ROS difficult at times) GI: Other (heartburn, constipation ) Physical Exam Physical Exam GENERAL: This is a well-nourished, well-developed patient, anxious SKIN: No rashes, ecchymoses or lesions. Cool and dry. HEAD: Atraumatic. Normocephalic. No temporal or scalp tenderness. EYES: Pupils equal round and reactive. Extraocular motions intact. No scleral icterus. No injection or drainage. ENT: Nose without bleeding, purulent drainage or septal hematoma. Throat without erythema, tonsillar hypertrophy or exudate. Uvula midline. Airway patent. NECK: Trachea midline. No JVD or lymphadenopathy. Supple, nontender, no meningeal signs. CARDIOVASCULAR: Irregular rate and rhythm without murmurs, gallops, or rubs. RESPIRATORY: Exp. wheezing. Chest wall tender to palpation, slight bruising to mid chest wall. GASTROINTESTINAL: Abdomen soft, non-tender, nondistended. No hepato-splenomegaly , or palpable masses. No guarding. MUSCULOSKELETAL: Extremities without clubbing, cyanosis, or edema. No joint tenderness, effusion, or edema noted. No calf tenderness. Negative Homans sign bilaterally. Toes with deformities. NEUROLOGICAL: Awakes to voice, oriented 3. Anxious. No focal deficits. Urinary Catheter: No Vascular Central Line Catheter: No A/P Diagnosis: (1) Acute respiratory failure with hypoxia and hypercapnia (2) COPD (chronic obstructive pulmonary disease) (3) Hypothyroidism (4) Depression with anxiety (5) Anxiety (6) HTN (hypertension) (7) Atrial fibrillation (8) History of GA (myocardial infarction) (9) Hyponatremia Assessment and Plan 71-year-old female with history of COPD oxygen dependent, CAD, afib, hx lung cancer. Pt.admitted for COPD exacerbation from 10/13 to 10/15. Pt. returned to ED today around 0100 with SOB, was given duonebs x3 per EVAC and was reportedly tachypneic with significant wheezing upon arrival to ED. She was placed on BiPAP 12/5 30%. Was initially not tolerating BiPAP and intubation was contemplated however she was administered Ativan 1 mg IV and then was able to tolerate BiPAP and appeared much improved. Was admitted to ICU under [facility] care. Acute respiratory failure with hypoxia and hypercarbia-improving -Bipap as needed Continue with oxygen Continue with DuoNeb's Refused IV [id number] Pulmonology input appreciated,continue Levaquin x 4 more days CHF, acute on chronic, BNP was 472. Stable -Continue with Lasix PO 20 mg BID Monitor intake and output - 2D echo EF 40-45% Elevated trop, mild, poss. due to cardiac demand -serial cardiac enzymes indeterminate -continue with medical management Chronic A. fib, stable Continue with Lopressor 25 mg by mouth 3 times a day Continue with Xarelto -Continuous cardiac telemetry Hypertension, stable. Continue home medications Depression and anxiety Continue with Xanax when necessary -Remains anxious, psychiatry has been consulted Continue with Seroquel 50 mm by mouth twice a day Continue with Xarelto for DVT prophylaxis Pepcid for GI prophylaxis Full code bowel regimen accepted at SNF Discharge to SNF today F/U Dr. Jo, PCP, card Diet heart healthy Activity as tolerated D/W RN D/W Dr. De La Rosa D/W pt. D/W CM This patient was seen by myself and Dr. De La Rosa, this note is written on his behalf Discharge Planning 45 minutes Problem Qualifiers (1) COPD (chronic obstructive pulmonary disease): Qualified Code: J44.1 - Chronic obstructive pulmonary disease with acute exacerbation (2) Hypothyroidism: Qualified Code: E03.9 - Hypothyroidism, unspecified type (3) HTN (hypertension): Qualified Code: I10 - Essential hypertension (4) Atrial fibrillation: Qualified Code: I48.2 - Chronic atrial fibrillation Sherron Mota Oct 22, 2016 10:05
--- NOTE | 2016-10-22 10:06 | HHI.DS ---
Discharge Summary Admission Date Oct 16, 2016 at 03:12 Discharge Date: Oct 22, 2016 Admitting Diagnosis Acute hypoxic and hypercapnic respiratory failure (1) Acute respiratory failure with hypoxia and hypercapnia (2) COPD (chronic obstructive pulmonary disease) (3) Hypothyroidism (4) Depression with anxiety (5) Anxiety (6) HTN (hypertension) (7) Atrial fibrillation (8) History of DC (myocardial infarction) (9) Hyponatremia CBC/BMP: 10/19/16 1003 10/19/16 1003 Imaging Last Impressions Chest X-Ray 10/17/16 0000 Signed Impressions: Service Date/Time: Monday, October 17, 2016 04:59 - CONCLUSION: Stable chest x-ray with near complete opacification right hemithorax with signs of volume loss in the right hemithorax. Hasmukh Willett MD Hospital Course This is a pleasant 71 year-old female with significant past medical history of COPD oxygen dependent, chronic imaging changes secondary to fibrosis, CAD status post DC 2, dementia, 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 fib, depression, anxiety, hypertension. Patient with frequent hospitalizations and ER visits for COPD exacerbation and chest discomfort. Pt. was actually admitted to our services for COPD exacerbation from 10/13 to 10/15. Pt. returned to ED today around 0100 with SOB, was given duonebs x3 per EVAC and was reportedly tachypneic with significant wheezing upon arrival to ED. Denied fever, chills, chest pain. She was placed on BiPAP 12/5 30%. Was initially not tolerating BiPAP and intubation was contemplated however she was administered Ativan 1 mg IV and then was able to tolerate BiPAP and appeared much improved. Reportedly wheezing significantly improved after nebs in the ED. Chest x-ray shows chronic opacification of the right lung. There was left basilar air space disease. Pt. was admitted under [facility]. She was started on empiric antibiotics, cultures obtained. She was noted hyponatremic, initially 123 then 129. Of note, during prior admission hospice spoke to pt. She had initiated conversations as outpatient however when they spoke to her she wanted to continue with aggressive goals of care. I brought up hospice as a resource to prevent rehospitalization and keep her comfortable at home. However, she did not feel like talking about it. When discussing possibility of rehab, she adamantly refused. Wanted to go back home with [facility]. Pt.was transferred to hospitalist services for further medical treatment. Final diagnoses were: (1) Acute respiratory failure with hypoxia and hypercapnia (2) COPD (chronic obstructive pulmonary disease) (3) Hypothyroidism (4) Depression with anxiety (5) Anxiety (6) HTN (hypertension) (7) Atrial fibrillation (8) History of DC (myocardial infarction) (9) Hyponatremia During the course of the hospitalization, the following took place: 71-year-old female with history of COPD oxygen dependent, CAD, afib, hx lung cancer. Pt.admitted for COPD exacerbation from 10/13 to 10/15. Pt. returned to ED today around 0100 with SOB, was given duonebs x3 per EVAC and was reportedly tachypneic with significant wheezing upon arrival to ED. She was placed on BiPAP 12/5 30%. Was initially not tolerating BiPAP and intubation was contemplated however she was administered Ativan 1 mg IV and then was able to tolerate BiPAP and appeared much improved. Was admitted to ICU under [facility] care. Acute respiratory failure with hypoxia and hypercarbia-improving -Bipap as needed. was eventually transferred out of ICU. Weaned down to oxygen per NC Continue with DuoNeb's Refused IV [id number] Pulmonology input appreciated,put on abx. Recommended to continue Levaquin x 4 more days CHF, acute on chronic, BNP was 472. Stable. Improved -Put on IV Lasix then changed to PO Monitor intake and output - 2D echo EF 40-45% Elevated trop, mild, poss. due to cardiac demand -serial cardiac enzymes indeterminate -continued with medical management Chronic A. fib, stable Continued with Lopressor 25 mg by mouth 3 times a day Continued with Xarelto -Continuous cardiac telemetry Hypertension, stable. Continue home medications Depression and anxiety Continue with Xanax when necessary -Remained anxious, psychiatry was consulted. Recommended Clonazepam 0.5 mg PO BID, continue Xanax PRN and cont. Seroquel Continued with Seroquel 50 mm by mouth twice a day -some improvement Continued with Xarelto for DVT prophylaxis Pepcid for GI prophylaxis Full code bowel regimen ordered. CM consulted, initially insisted on home but eventually agreed to SNF. Clinically stable, no resp. distress. accepted at SNF Discharged to SNF in stable condition. Instructed to: F/U Dr. Jo, PCP Diet heart healthy Activity as tolerated Pt Condition on Discharge: Stable Discharge Disposition: Discharge to SNF Discharge Instructions DIET: Follow Instructions for: Heart Healthy Diet Speech Therapy-Diet Recommends: Mechanical Soft, Chopped Meat w/Gravy Activities you can perform: Weight Bearing as Sherri Follow up Referrals: PCP Follow-up Pulmonology - 2 Weeks with Wandy Preciado MD New Medications: Albuterol Neb (Albuterol Neb) 2.5 Mg/3 Ml Neb 2.5 MG INH Q2HR NEB PRN SOB/WHEEZING #60 NEBULE Furosemide (Furosemide) 20 Mg Tab 20 MG PO DAILY FLUID OVERLOAD #30 Ref 1 TAB Levofloxacin (Levaquin) 500 Mg Tab 500 MG PO DAILY Infection #4 TAB Quetiapine (Quetiapine) 25 Mg Tab 50 MG PO BID Psychosis #60 Ref 1 TAB Continued Medications: Kyvewyvk-Phlpjvfui-Jiyvxbdzhww Liq (Mylanta Liq) 200-200-20 Mg/5 Ml Susp 30 ML PO Q8HR Take between meals or as directed. Shake well. Maximum 120 ml/24 hrs. Reflux Ref 0 ML Citalopram (Celexa) 20 Mg Tab 40 MG PO DAILY depression, bipolar #30 TAB Levothyroxine (Levothyroxine) 50 Mcg Tab 50 MCG PO DAILY Thyroid #30 Ref 0 TAB Metoprolol Tartrate (Metoprolol Tartrate) 25 Mg Tab 25 MG PO TID #60 Ref 0 TAB Pancrelipase (Creon) 24,000-76,000-120,000 Units Cap 1 CAP PO TID abdominal pain #90 CAP Potassium Chloride ER (Potassium Chloride ER) 10 Meq Cap 10 MEQ PO DAILY Electrolyte Replacement #30 Ref 0 CAP Quetiapine (Quetiapine) 25 Mg Tab 25 MG PO BID bipolar #30 TAB Ranitidine (Zantac 150 Maximum Strength) 150 Mg Tab 150 MG PO BID TAB Rivaroxaban (Xarelto) 15 Mg Tab 20 MG PO DAILY atrial fibrillation #60 TAB Discontinued Medications: Alprazolam (Xanax) 0.5 Mg Tab 0.5 MG PO Q8H PRN anxiety #15 TAB Hydrocodone-Acetaminophen (Hydrocodone-Acetaminophen) 5-325 mg Tab 1 TAB PO Q4H PRN PAIN SCALE 6 TO 10 #15 TAB Ipratropium Sorento (Ipratropium Sorento) 1 Pow Pow 0.5 MG NEB TID Prednisone (21) 10 mg tab Dose Pack (Prednisone (21) 10 mg tab Dose Pack) 10 Mg Pack 10 MG PO DIRECTED Inflammation #1 Ref 0 LEE ANNK Sherron Mota [facility] Oct 22, 2016 10:06
[2016-10-22] MEDS ORDERED: FAMOTIDINE 20 MG TAB PO SCH ×2 (11:00→21:00)
--- NOTE | 2016-10-22 11:29 | PD.PN.STU ---
Subjective Remarks Patient continues to be anxious. On 2L O2 NC, no wheezing, no SOB. Up out of bed to bathroom on own. To rehab soon. C/O Reflux and abdominal pain Objective Vitals Vital Signs Date Time Temp Pulse Resp B/P Pulse Ox O2 Delivery O2 Flow Rate FiO2 10/22/16 08:20 102 10/22/16 08:00 98.3 87 20 155/72 99 10/22/16 04:00 97.5 87 20 146/82 100 10/22/16 00:09 98.7 83 20 159/70 98 10/21/16 20:11 98 Nasal Cannula 2.00 10/21/16 20:00 98.3 75 20 158/67 100 10/21/16 19:20 86 10/21/16 16:17 100 10/21/16 16:00 98.4 69 20 133/63 100 10/21/16 12:00 98.0 63 18 118/56 100 10/21/16 12:00 100 I/O 10/21/16 10/21/16 10/21/16 10/22/16 10/22/16 10/22/16 07:00 15:00 23:00 07:00 15:00 23:00 Intake Total 0 ml 960 ml 720 ml 720 ml Balance 0 ml 960 ml 720 ml 720 ml Intake Oral 0 ml 960 ml 720 ml 720 ml # Voids 0 1 2 2 # Bowel Movements 0 1 0 Result Diagram: 10/19/16 1003 10/19/16 1003 Objective Remarks Elderly: Elderly white female. No acute distress. HEENT: Exam unremarkable. Eyes without icterus. NECK: Without adenopathy or thyroid enlargement. No JVD CHEST: No wheezes, decreased breath sounds on right CARDIAC: PMI distant. Irregularity noted. ABDOMEN: Soft non tender, BS heard all 4 quadrants. EXTREMITIES: No clubbing, cyanosis but has trace edema to BL LE. . SKIN: Normal. No lymphadenopathy. PSYCH: Appears anxious with depressed mood. A/P Assessment and Plan IMPRESSION 1. COPD and exacerbation 2. Acute on chronic respiratory failure. RESOLVED 3. Coronary artery disease 4. Hypertension 5. Mood disorder Plan : 1. Continue O2 at 2 L. 2. Nebs qid , duoneb. 3. Cont seroquel 50 mg BID, Citalopram 40 mg qd and Clonazepam 0.5 mg q12h PRN per psych 4 Continue Pepcid 20 mg bid 5. OK to rehab anytime 6. Levaquin 500 mg daily X 4 Concur with Findings and Plan. Essie Preciado MD. Jessica Cooper M3 Oct 22, 2016 11:29 Wandy Preciado MD Oct 22, 2016 12:52
[2016-10-22] MEDS ORDERED: HYDR-3516 PO (11:47)
[2016-10-22] MEDS ORDERED: CLON.5 PO (11:47)
[2016-10-22] MEDS ORDERED: ALPR.5 PO (11:47)
[2016-10-22] MEDS ORDERED: Aspirin Chew CHEW (11:47)
[2016-10-22 12:00] VITALS: BP 131/79; PULSE 61; RESP 20; TEMP 97.5; O2SAT 100
[2016-10-22 13:10] VITALS: O2SAT 99
--- NOTE | 2016-10-24 14:30 | PQ ---
Physician Query Response Document PATIENT: KEITH STRONG : 1945 ADMIT DATE: 10/16/2016 3:12 AM DISCH DATE: 10/22/2016 2:04 PM RESPONDING PROVIDER #: haile QUERY TEXT: CHF Acuity and Type Congestive Heart Failure is documented in the Medical Record. Please document the type and acuity (in cludes probable or suspected) Such as: Type: -- Systolic -- Diastolic -- Combined -- Other, please specify Acuity: -- Acute -- Chronic -- Acute on chronic -- Other, please specify Also please document the underlying cause of the CHF (includes probable or suspected) The patient's Clinical Indicators include: PER PROGRESS NOTE 10/17/16: CHF, acute on chronic, BNP was 472. -change to Lasix PO 20 mg BID ?Monitor intake and output - 2D echo pending ECHO 10/17/16: SYSTOLIC FUNCTION MILD TO MODERATELY REDUCED, EF=40-45%, TECHNICALLY INSUFFICIENT TO MEAGHAN LUATE LV DIASTOLIC FUNCTION Query created by: Estephania Vasquez on 10/19/2016 8:16 AM RESPONSE TEXT: Chronic systolic CHF EF 40-45% Electronically signed by: Sherry De La Rosa MD 10/24/2016 2:27 PM
== END 2016-10-22 14:04 | DRG 189 ==
LOC: NEPE 00:49 → NEDA 03:12 → HIME 06:00 → N04B 10-19 00:04
PROVIDERS: ADMIT Emergency Medicine; ATTEND Emergency Medicine
PROC: 5A09357 Assistance with Respiratory Ventilation, Less than 24 Consecutive Hours, Continuous Positive Airway Pressure (ICD-10-PCS; principal; 2016-10-16)
DX: J96.22 Acute and chronic respiratory failure with hypercapnia (principal); E87.2 Acidosis; I50.22 Chronic systolic (congestive) heart failure; I11.0 Hypertensive heart disease with heart failure; F03.90 Unspecified dementia, unspecified severity, without behavioral disturbance, psychotic disturbance, mood disturbance, and anxiety; E87.1 Hypo-osmolality and hyponatremia; J44.1 Chronic obstructive pulmonary disease with (acute) exacerbation; J96.21 Acute and chronic respiratory failure with hypoxia; I48.2 Chronic atrial fibrillation; I25.10 Atherosclerotic heart disease of native coronary artery without angina pectoris; I25.2 Old myocardial infarction; E03.9 Hypothyroidism, unspecified; K21.9 Gastro-esophageal reflux disease without esophagitis; M19.042 Primary osteoarthritis, left hand; M19.041 Primary osteoarthritis, right hand; M79.7 Fibromyalgia; J84.10 Pulmonary fibrosis, unspecified; I49.3 Ventricular premature depolarization; E66.9 Obesity, unspecified; F43.23 Adjustment disorder with mixed anxiety and depressed mood; D64.9 Anemia, unspecified; K29.70 Gastritis, unspecified, without bleeding; K59.00 Constipation, unspecified; Z68.30 Body mass index [BMI] 30.0-30.9, adult; Z79.01 Long term (current) use of anticoagulants; Z85.118 Personal history of other malignant neoplasm of bronchus and lung; Z87.891 Personal history of nicotine dependence; Z88.0 Allergy status to penicillin; Z88.1 Allergy status to other antibiotic agents; Z88.2 Allergy status to sulfonamides; Z88.6 Allergy status to analgesic agent; Z88.8 Allergy status to other drugs, medicaments and biological substances; Z91.010 Allergy to peanuts; Z92.21 Personal history of antineoplastic chemotherapy; Z92.3 Personal history of irradiation; Z99.81 Dependence on supplemental oxygen
CPT/HCPCS: 36600; 71010; 71020; 80048; 80053; 81001; 82550; 82552; 82570; 82805; 82948; 83605; 83735; 83880; 83935; 84100; 84300; 84443; 84484; 85025; 85610; 85730; 87040; 87449; 87641; 93005; 93306; 94002; 94640; 94664; 96374; 96375; G0378; J0360; J1644; J1815; J1940; J2060; J2405; J2920; J3370; J7050; J7613

== ENCOUNTER 2016-11-26 01:34 | Inpatient (IN) | payer MEDICARE, MEDICAID ==
[2016-11-26] VITALS (16 sets, daily range): BP systolic 108–170; BP diastolic 59–106; PULSE 67–135; RESP 14–26; TEMP 97.6–99; O2SAT 94–100
[~2016-11-26] VITALS: Ht 160 cm; Wt 72.1 kg
[~2016-11-26 01:34] MED LIST changes: +ALBU0.08 INH; +Aspirin Chew CHEW; +CLON.5 PO; +FURO20TA PO; -IPRA1POW8 NEB; +LEVA500T PO; -PRED10PA PO
[2016-11-26] MEDS ORDERED: RESP: IPRATROPIUM 0.5 MG/2.5 ML NEB NEB ONE (01:45)
[2016-11-26] MEDS ORDERED: ROCURONIUM INJ 50 MG/5 ML VIAL IV ONE (02:00)
[2016-11-26] MEDS ORDERED: ETOMIDATE 20 MG/10 ML VIAL IV PUSH ONE (02:00)
[2016-11-26 02:04] LABS: AUTOMATED NEUTROPHIL # 7.2 TH/MM3 (1.8-7.7); BASOPHIL # 0.1 TH/MM3 (0-0.2); BASOPHIL % 0.7 % (0.0-2.0); EOSINOPHIL # 0.3 TH/MM3 (0-0.4); EOSINOPHIL % 2.8 % (0.0-4.0); HEMATOCRIT 35.1 % (35.0-46.0); HEMO FLAGS DIFF FINAL; LYMPH % 19.5 % (9.0-44.0); LYMPHOCYTE # 2.1 TH/MM3 (1.0-4.8); MEAN CELL VOLUME 89.6 FL (80.0-100.0); MEAN CORPUSCULAR HEMOGLOBIN 29.3 PG (27.0-34.0); MEAN CORPUSCULAR HGB CONC 32.7 % (32.0-36.0); MONO % 9.3 % (0.0-8.0); NEUT % 67.7 % (16.0-70.0); PLATELET COUNT 248 TH/MM3 (150-450); RED BLOOD COUNT 3.92 MIL/MM3 (4.00-5.30); WHITE BLOOD COUNT 10.6 TH/MM3 (4.0-11.0)
[2016-11-26] MEDS: RESP: ALBUTEROL 2.5 MG/IPRATROPIUM 0.5 MG NEB (SCH) INH ×2 (02:06→02:07)
--- NOTE | 2016-11-26 02:06 | RADRPT ---
EXAM DATE/TIME: 11/26/2016 01:52 [facility] COMPARISON: CHEST SINGLE AP, September 02, 2016, 21:19. CHEST SINGLE AP, October 16, 2016, 1:19. CHEST SINGLE AP, October 17, 2016, 4:59. INDICATIONS : Respiratory distress. MEDICAL HISTORY : Carcinoma, lung. SURGICAL HISTORY : Right lung surgery. ENCOUNTER: Initial ACUITY: 1 day PAIN SCORE: Non-responsive. LOCATION: Bilateral chest FINDINGS: There continues to be near complete opacification of the right hemithorax. This is stable and unchang ed compared to the prior exams. The right lung is grossly clear. There is some motion artifact which limits the evaluation. The heart size is stable. Compared to the prior study no significant changes a re demonstrated. CONCLUSION: Stable examination of the chest compared to the prior studies with near complete opacification of the right hemithorax. The left lung remains grossly clear. Arie Olvera MD on November 26, 2016 at 2:02 Board Certified Radiologist. This report was verified electronically.
--- NOTE | 2016-11-26 02:11 | PD ---
HPI Chief Complaint: Respiratory Symptoms Time Seen by Provider: 01:37 Travel History International Travel<30 days: No Contact w/Intl Traveler<30days: No Traveled to known affect area: No History of Present Illness HPI 71-year-old female was brought in by EMS for shortness of breath. Patient states that the shortness breath started today. Patient has history COPD on home O2. 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 Patient has history of CAD status post [place] 2, atrial fibrillation, hypertension, dementia. Patient originally told EMS personnel that she is allergic to albuterol and steroid. Patient was transported and given O2 via nonrebreathing mask. In reviewing medical records, patient was given DuoNeb treatment and Solu-Medrol IV the past without any problem. PFSH Past Medical History Hx Anticoagulant Therapy: Yes (XARELTO) Arthritis: Yes (HANDS) Asthma: No Atrial Fibrillation: Yes Autoimmune Disease: No Blood Disorders: No Anxiety: Yes Depression: Yes Heart Rhythm Problems: Yes Cancer: Yes (HX LUNG CA) Cardiac Catheterization: Yes Cardiovascular Problems: Yes (HBP) High Cholesterol: No Chemotherapy: Yes (HX) Chest Pain: Yes Congestive Heart Failure: Yes COPD: Yes Cerebrovascular Accident: No Coronary Artery Disease: Yes Diabetes: No Diminished Hearing: No Endocrine: No Fibromyalgia: Yes Gastrointestinal Disorders: Yes GERD: Yes Glaucoma: No Genitourinary: No Headaches: Yes Hepatitis: No Hiatal Hernia: No Heparin Induced Thrombocytopen: No Hypertension: No Immune Disorder: No Implanted Vascular Access Dvce: No Kidney Stones: No Medical other: Yes (ARTHRITIS,DIZZINESS) Musculoskeletal: Yes Neurologic: No Psychiatric: Yes Reproductive: No Respiratory: Yes (COPD) Immunizations Current: Yes Migraines: No Myocardial Infarction: Yes (X2) Pneumonia: Yes Radiation Therapy: Yes Renal Failure: No Seizures: No Sickle Cell Disease: No Sleep Apnea: No Thyroid Disease: Yes Ulcer: No ?: Not Menopausal: Yes : 1 Para: 1 Miscarriage: 0 : 0 Past Surgical History Abdominal Surgery: Yes AICD: No Arteriovenous Shunt: No Body Medical Devices: Neck stent Cardiac Surgery: No Section: No Cholecystectomy: Yes Ear Surgery: No Endocrine Surgery: No Eye Surgery: No Genitourinary Surgery: No Gynecologic Surgery: No Insulin Pump: No Joint Replacement: No Neurologic Surgery: No Oral Surgery: No Pacemaker: No Thoracic Surgery: No Other Surgery: Yes (POLYPS REMOVED FROM LARYNX; ENDOSCOPY) Social History Alcohol Use: No Tobacco Use: No Substance Use: No Allergies-Medications (Allergen,Severity, Reaction): Coded Allergies: Adhesives (Verified Allergy, Severe, RASK, 07/29/16) skin breakdown Calcium Channel Blockers (Verified Allergy, Severe, DIFFICULTY BREATHING, 07/29/16) Entex LA (Verified Allergy, Severe, Anaphylaxis, 07/29/16) Marcaine (Verified Allergy, Severe, DIFFICULTY BREATHING, 10/13/16) Minocin (Verified Allergy, Severe, DIFFICULTY BREATHING, 10/13/16) Nonsteroidal Anti-Inflammatory Agts (Verified Allergy, Severe, DIFFICULTY BREATHING, 10/13/16) PEANUTS (Verified Allergy, Severe, lips swelling, 10/13/16) Penicillin (Verified Allergy, Severe, DIFFICULTY BREATHING, 10/13/16) Prilosec (Verified Allergy, Severe, DIFFICULTY BREATHING, 10/13/16) Promethazine (Verified Allergy, Severe, DIFFICULTY BREATHING, 10/13/16) Sulfa (Verified Allergy, Severe, DIFFICULTY BREATHING, 10/13/16) Prednisone (Verified Allergy, Intermediate, rash and lips swell, 10/13/16) Zyrtec (Verified Allergy, Intermediate, rash, 10/13/16) Vancomycin (Verified Allergy, Mild, Flushing, 10/17/16) lips tingling Zyprexa (Verified Adverse Reaction, Severe, Severe vomiting., 10/13/16) Fluticasone (Verified Adverse Reaction, Intermediate, [place] of the skin around the nose. Inhaled steroids do , 10/13/16) the same to her mouth. Omeprazole (Verified Adverse Reaction, Intermediate, [place] funny, 10/13/16) Zithromax (Verified Adverse Reaction, Intermediate, Says it made her jittery and it was harder to breathe. 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 Not sure would get same reaction to Injectable. K. Mayo, MD. James (Adverse Reaction, Severe, Caused amnesia and a fall. , 07/10/13) Reported Meds & Prescriptions Reported Meds & Active Scripts Active Hydrocodone-Acetaminophen 5-325 mg Tab 1 Tab PO Q6H PRN 14 Days Klonopin (Clonazepam) 0.5 Mg Tab 0.5 Mg PO Q12HR 14 Days Xanax (Alprazolam) 0.5 Mg Tab 0.5 Mg PO Q6H PRN 14 Days Quetiapine (Quetiapine Fumarate) 25 Mg Tab 50 Mg PO BID Levaquin (Levofloxacin) 500 Mg Tab 500 Mg PO DAILY Furosemide 20 Mg Tab 20 Mg PO DAILY Albuterol Neb (Albuterol Sulfate) 2.5 Mg/3 Ml Neb 2.5 Mg INH Q2HR NEB PRN Xarelto (Rivaroxaban) 15 Mg Tab 20 Mg PO DAILY Quetiapine (Quetiapine Fumarate) 25 Mg Tab 25 Mg PO BID Creon (Amylase/Lipase/Protease) 24,000-76,000-120,000 Units Cap 1 Cap PO TID Reported Aspir-81 (Aspirin) 81 Mg Tabdr Lorazepam 1 Mg Tab 1 Mg PO Q4H PRN Lexapro (Escitalopram Oxalate) 20 Mg Tab 20 Mg PO DAILY Seroquel (Quetiapine Fumarate) 50 Mg Tab 50 Mg PO DAILY Mirtazapine 15 Mg Tab 15 Mg PO HS Cymbalta DR (Duloxetine HCl) 30 Mg Capdr 30 Mg PO DAILY Enalapril (Enalapril Maleate) 20 Mg Tab 20 Mg PO DAILY Melatonin 5 Mg Tab 3 Mg PO HS Buspirone (Buspirone HCl) 10 Mg Tab 10 Mg PO TID Metoprolol Tartrate 25 Mg Tab 25 Mg PO TID Levothyroxine (Levothyroxine Sodium) 50 Mcg Tab 50 Mcg PO DAILY Zantac 150 Maximum Strength (Ranitidine HCl) 150 Mg Tab 150 Mg PO BID Mylanta Liq (Sdfggfik-Syqdqfyya-Kucvfqydqnb Liq) 200-200-20 Mg/5 Ml Susp 30 Ml PO Q8HR Take between meals or as directed. Shake well. Maximum 120 ml/24 hrs. Potassium Chloride ER (Potassium Chloride) 10 Meq Cap 10 Meq PO DAILY Review of Systems General / Constitutional: No: Fever Eyes: No: Visual changes HENT: No: Headaches Cardiovascular: No: Chest Pain or Discomfort Respiratory: Positive: Cough, Shortness of Breath, Wheezing Gastrointestinal: No: Abdominal Pain Genitourinary: No: Dysuria Musculoskeletal: No: Pain Skin: No Rash Neurologic: No: Weakness Psychiatric: No: Depression Endocrine: No: Polydipsia Hematologic/Lymphatic: No: Easy Bruising Physical Exam Narrative GENERAL: Well-nourished, well-developed patient. SKIN: Focused skin assessment warm/dry. HEAD: Normocephalic. EYES: No scleral icterus. No injection or drainage. NECK: Supple, trachea midline. No JVD or lymphadenopathy. CARDIOVASCULAR: Tachycardia rate and rhythm without murmurs, gallops, or rubs. RESPIRATORY: Patient has moderate expiratory wheezes bilaterally. Few rhonchi at the bases. Patient has retractions. Patient's tachypneic. GASTROINTESTINAL: Abdomen soft, non-tender, nondistended. MUSCULOSKELETAL: No cyanosis, or edema. BACK: Nontender without obvious deformity. No CVA tenderness. Neurologic exam: Patient's awake and alert oriented 3. No obvious focal neurological deficit. Data Data Last Documented VS Vital Signs Date Time Temp Pulse Resp B/P Pulse Ox O2 Delivery O2 Flow Rate FiO2 11/26/16 03:25 95 BiPAP 11/26/16 03:25 16 11/26/16 03:07 125 170/106 11/26/16 02:11 75 11/26/16 01:59 15 11/26/16 01:54 97.6 Orders Complete Blood Count With Diff (11/26/16 01:37) Comprehensive Metabolic Panel (11/26/16 01:37) B-Type Natriuretic Peptide (11/26/16 01:37) Act Partial Throm Time (Ptt) (11/26/16 01:37) Prothrombin Time / Inr (Pt) (11/26/16 01:37) Urinalysis - C+S If Indicated (11/26/16 01:37) Influenzae A/B Antigen (11/26/16 01:37) Iv Access Insert/Monitor (11/26/16 01:37) Ecg Monitoring (11/26/16 01:37) Oximetry (11/26/16 01:37) Oxygen Administration (11/26/16 01:37) Chest, Single Ap (11/26/16 01:37) Ipratropium Neb (Atrovent Neb) (11/26/16 01:45) Lactic Acid (11/26/16 01:49) Etomidate Inj (Amidate Inj) (11/26/16 02:00) Rocuronium Inj (Zemuron Inj) (11/26/16 02:00) Propofol 1000 Mg/100 Ml Inj (Diprivan 10 (11/26/16 02:00) Methylprednisolone So Succ Inj (Solumedr (11/26/16 02:15) Albuterol-Ipratropium Neb (Duoneb Neb) (11/26/16 02:15) Lorazepam Inj (Ativan Inj) (11/26/16 02:15) Arterial Blood Gas (Abg) (11/26/16 ) Lorazepam Inj (Ativan Inj) (11/26/16 03:15) Albuterol-Ipratropium Neb (Duoneb Neb) (11/26/16 03:15) Arterial Blood Gas (Abg) (11/26/16 03:35) Aztreonam Inj (Azactam Inj) (11/26/16 04:00) Labs Laboratory Tests Test 11/26/16 11/26/16 11/26/16 11/26/16 01:49 01:55 02:35 03:35 White Blood Count 10.6 TH/MM3 Red Blood Count 3.92 MIL/MM3 Hemoglobin 11.5 GM/DL Hematocrit 35.1 % Mean Corpuscular Volume 89.6 FL Mean Corpuscular Hemoglobin 29.3 PG Mean Corpuscular Hemoglobin 32.7 % Concent Red Cell Distribution Width 18.0 % Platelet Count 248 TH/MM3 Mean Platelet Volume 8.5 FL Neutrophils (%) (Auto) 67.7 % Lymphocytes (%) (Auto) 19.5 % Monocytes (%) (Auto) 9.3 % Eosinophils (%) (Auto) 2.8 % Basophils (%) (Auto) 0.7 % Neutrophils # (Auto) 7.2 TH/MM3 Lymphocytes # (Auto) 2.1 TH/MM3 Monocytes # (Auto) 1.0 TH/MM3 Eosinophils # (Auto) 0.3 TH/MM3 Basophils # (Auto) 0.1 TH/MM3 CBC Comment DIFF FINAL Differential Comment Prothrombin Time 12.0 SEC Prothromb Time International 1.1 RATIO Ratio Activated Partial 29.1 SEC Thromboplast Time Sodium Level 134 MEQ/L Potassium Level 3.9 MEQ/L Chloride Level 97 MEQ/L Carbon Dioxide Level 32.0 MEQ/L Anion Gap 5 MEQ/L Blood Urea Nitrogen 7 MG/DL Creatinine 1.12 MG/DL Estimat Glomerular Filtration 48 ML/MIN Rate Random Glucose 157 MG/DL Calcium Level 10.1 MG/DL Total Bilirubin 0.8 MG/DL Aspartate Amino Transf 36 U/L (AST/SGOT) Alanine Aminotransferase 25 U/L (ALT/SGPT) Alkaline Phosphatase 66 U/L B-Type Natriuretic Peptide 391 PG/ML Total Protein 7.9 GM/DL Albumin 4.1 GM/DL Lactic Acid Level 1.7 mmol/L Blood Gas Puncture Site RT RADIAL RT RADIAL Blood Gas Patient Temperature 98.6 98.6 Blood Gas HCO3 29 mmol/L 30 mmol/L Blood Gas Base Excess 3.0 mmol/L 4.6 mmol/L Blood Gas Oxygen Saturation 98 % 93 % Arterial Blood pH 7.27 7.38 Arterial Blood Partial 65 mmHg 51 mmHg Pressure CO2 Arterial Blood Partial 328 mmHG 78 mmHG Pressure O2 Arterial Blood Oxygen Content 15.8 Vol % 13.3 Vol % Arterial Blood 1.1 % 1.6 % Carboxyhemoglobin Arterial Blood Methemoglobin 0.4 % 0.5 % Blood Gas Hemoglobin 10.8 G/DL 10.1 G/DL Oxygen Delivery Device BiPAP BiPAP Blood Gas Ventilator Setting 15/.8 15/.4 Blood Gas Inspired Oxygen 80 % 40 % MDM Medical Decision Making Medical Screen Exam Complete: Yes Emergency Medical Condition: Yes Interpretation(s) Last Impressions Chest X-Ray 11/26/16 0137 Signed Impressions: Service Date/Time: Saturday, November 26, 2016 01:52 - CONCLUSION: Stable examination of the chest compared to the prior studies with near complete opacification of the right hemithorax. The left lung remains grossly clear. Arie Olvera MD 3:56 AM. Influenza AB antigen negative. CBC within normal limit. Creatinine 1.12. GFR 48. BNP 391. Lactic acid 1.7. Differential Diagnosis Differential diagnosis including acute exacerbation COPD, bronchitis, pneumonia , PE, pneumothorax. Narrative Course 71-year-old female with coughing wheezing shortness of breath. History of COPD. Although patient states that she is allergic to albuterol and steroid, patient was given DuoNeb treatment in the past and diabetes Solu-Medrol without problem in the past. Albuterol with Atrovent the dose treatment 3. Solu- Medrol 125 mg IV. Patient was put on BiPAP. Ativan 1 mg IV given. Azactam 1 g IV given. Albuterol Atrovent unit dose treatment 1. Ativan 1 mg IV. Diagnosis Primary Impression: COPD with acute exacerbation Admitting Information Admitting Physician Requests: Admit Orestes Cornelius MD November 26, 2016 02:11
[2016-11-26] MEDS ORDERED: LORazepam 2 MG/ML VIAL IV PUSH ONE ×2 (02:15→03:15)
[2016-11-26] MEDS ORDERED: methylPREDNISolone SOD SUCC 125 MG/2 ML VIAL IVP ONE (02:15)
[2016-11-26 02:19] LABS: APTT (PATIENT) 29.1 SEC (24.3-30.1); INTERNATIONAL NORMALIZED RATIO 1.1 RATIO
[2016-11-26 02:39] LABS: ALKALINE PHOSPHATASE 66 U/L (45-117); TOTAL BILIRUBIN ADULT 0.8 MG/DL (0.2-1.0)
[2016-11-26 02:45] LABS: BLOOD GAS CARBOXYHEMOGLOBIN 1.1 % (0-4); BLOOD GAS HCO3 29 mmol/L (22-26); BLOOD GAS METHEMOGLOBIN 0.4 % (0-2); BLOOD GAS O2 HGB SATURATION 98 % (90-100); BLOOD GAS OXYGEN CONTENT 15.8 Vol % (12.0-20.0); BLOOD GAS PCO2 65 mmHg (38-42); BLOOD GAS PO2 328 mmHG (61-120); BLOOD GAS TOTAL HGB 10.8 G/DL (12.0-16.0); CRITICAL VALUE YES; OXYGEN DEVICE BiPAP; TEMP CORR TO 98.6; VENT SETTINGS 15/5/.8
[2016-11-26 02:46] LABS: ALT (GPT) 25 U/L (10-53); ANION GAP 5 MEQ/L (5-15); AST (GOT) 36 U/L (15-37); BLOOD UREA NITROGEN 7 MG/DL (7-18); CHLORIDE 97 MEQ/L (98-107); GLOMERULAR FILTRATION RATE 48 ML/MIN (>89); POTASSIUM 3.9 MEQ/L (3.5-5.1); SODIUM (NA) 134 MEQ/L (136-145)
[2016-11-26 02:46] LABS: DRAW SITE RT RADIAL; FIO2 80 %; NUMBER OF ARTERIAL PUNCTURES 1; STAT YES
[2016-11-26] MEDS ORDERED: RESP: ALBUTEROL 2.5 MG/IPRATROPIUM 0.5 MG NEB (SCH) INH ONE (03:15)
[2016-11-26] MEDS ORDERED: BUSP10TA PO (03:25)
[2016-11-26] MEDS ORDERED: MELA5TAB15 PO (03:25)
[2016-11-26] MEDS ORDERED: SERO50TA PO (03:25)
[2016-11-26] MEDS ORDERED: MIRTA15 PO (03:25)
[2016-11-26] MEDS ORDERED: ASPI81TA81 PO (03:25)
[2016-11-26] MEDS ORDERED: LORA1TAB12 PO (03:25)
[2016-11-26] MEDS ORDERED: LEXA20TA PO (03:25)
[2016-11-26] MEDS ORDERED: CYMB30CA PO (03:25)
[2016-11-26] MEDS ORDERED: ENAL20TA PO (03:25)
[2016-11-26 03:53] LABS: BLOOD GAS BASE EXCESS 4.6 mmol/L (-2-2); BLOOD GAS CARBOXYHEMOGLOBIN 1.6 % (0-4); BLOOD GAS HCO3 30 mmol/L (22-26); BLOOD GAS METHEMOGLOBIN 0.5 % (0-2); BLOOD GAS O2 HGB SATURATION 93 % (90-100); BLOOD GAS OXYGEN CONTENT 13.3 Vol % (12.0-20.0); BLOOD GAS PCO2 51 mmHg (38-42); BLOOD GAS PO2 78 mmHG (61-120); BLOOD GAS TOTAL HGB 10.1 G/DL (12.0-16.0); TEMP CORR TO 98.6
[2016-11-26 03:54] LABS: CRITICAL VALUE YES; DRAW SITE RT RADIAL; FIO2 40 %; NUMBER OF ARTERIAL PUNCTURES 1; OXYGEN DEVICE BiPAP; STAT YES; VENT SETTINGS 15/5/.4
[2016-11-26] MEDS ORDERED: AZTREONAM INJ 1,000 MG in SODIUM CHLORIDE 0.9% INJ 100 ML IV ONE (04:00)
[2016-11-26] MEDS ORDERED: SODIUM CHLORIDE 0.9% FLUSH 10 ML FLUSH IVF PRN (04:45)
[2016-11-26] MEDS ORDERED: ONDANSETRON HCL 4 MG/2 ML VIAL IV PRN (04:45)
[2016-11-26] MEDS: LORazepam 2 MG/ML VIAL IV PUSH PRN (06:35)
[2016-11-26] MEDS ORDERED: MIDAZOLAM HCL 5 MG/ML VIAL (1 ML) ONE (06:49)
[2016-11-26] MEDS ORDERED: METOPROLOL TARTRATE 5 MG/5 ML VIAL ONE (07:03)
--- NOTE | 2016-11-26 07:35 | PD.CONS ---
HPI Service Critical Care Medicine Consult Requested By Dr. Caputo Reason for Consult Acute hypoxemic respiratory failure Impending respiratory arrest Acute COPD exacerbation Atrial fibrillation with RVR Primary Care Physician Unknown History of Present Illness Patient is a 71-year-old female with past medical history significant for COPD on 3 L home oxygen, small cell lung cancer in 2003 treated w/ chemotherapy and radiation, subsequent chronic opacification of Right lung ( Also has obstructing benign mass RUL per Dr. Ocampo's previous notes), CAD status post [place] 2,atrial fibrillation,hypertension, dementia. Patient has history of admission to hospital multiple times for COPD exacerbations. Seen in the ER at 1:[address] Cornelius for acute COPD exacerbation. Patient was given DuoNeb breathing treatments, IV Solu-Medrol and Azactam, was placed on BiPAP and admitted to [facility]. Around 6:30 AM I was emergently called to the ICU room. Patient was acutely decompensated. On my evaluation patient was in acute respiratory extremis on BiPAP, breathing about 50 breaths per minute with severe wheezing, extremely anxious and in impending respiratory arrest. Her heart rate was in the 190s. Patient was emergently intubated and placed on mechanical ventilation. Her peak pressures were consistently high due to bronchospasm and I placed her on PCV mode of ventilation. CXR is pending at this time but review of the ER chest x-ray shows chronic opacification of the right lung. I will continue her IV steroids at increased dose continue duo nebs antibiotics in the form of Azactam and Flagyl. Pulmonary Dr. Ocampo will be consulted Review of Systems ROS Limitations: Clinical Condition, Other (unable to obtain) Past Family Social History Allergies: Coded Allergies: Adhesives (Verified Allergy, Severe, RASK, 07/29/16) skin breakdown Calcium Channel Blockers (Verified Allergy, Severe, DIFFICULTY BREATHING, 07/29/16) Entex LA (Verified Allergy, Severe, Anaphylaxis, 07/29/16) Marcaine (Verified Allergy, Severe, DIFFICULTY BREATHING, 10/13/16) Minocin (Verified Allergy, Severe, DIFFICULTY BREATHING, 10/13/16) Nonsteroidal Anti-Inflammatory Agts (Verified Allergy, Severe, DIFFICULTY BREATHING, 10/13/16) PEANUTS (Verified Allergy, Severe, lips swelling, 10/13/16) Penicillin (Verified Allergy, Severe, DIFFICULTY BREATHING, 10/13/16) Prilosec (Verified Allergy, Severe, DIFFICULTY BREATHING, 10/13/16) Promethazine (Verified Allergy, Severe, DIFFICULTY BREATHING, 10/13/16) Sulfa (Verified Allergy, Severe, DIFFICULTY BREATHING, 10/13/16) Prednisone (Verified Allergy, Intermediate, rash and lips swell, 10/13/16) Zyrtec (Verified Allergy, Intermediate, rash, 10/13/16) Vancomycin (Verified Allergy, Mild, Flushing, 10/17/16) lips tingling Zyprexa (Verified Adverse Reaction, Severe, Severe vomiting., 10/13/16) Fluticasone (Verified Adverse Reaction, Intermediate, [place] of the skin around the nose. Inhaled steroids do , 10/13/16) the same to her mouth. Omeprazole (Verified Adverse Reaction, Intermediate, [place] funny, 10/13/16) Zithromax (Verified Adverse Reaction, Intermediate, Says it made her jittery and it was harder to breathe. 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 Not sure would get same reaction to Injectable. Lian Huber MD. Jacob (Adverse Reaction, Severe, Caused amnesia and a fall. , 07/10/13) Past Medical History Chronic atelectasis of right lung Right upper lobe obstructing mass biopsies negative for malignancy per Dr. Una torres's notes Hypertension COPD Esophageal stricture Small cell lung cancer status post radiation chemotherapy Depression Anxiety Atrial fibrillation on chronic anticoagulation with Xarelto CAD with prior [place] x2 Hypothyroidism Past Surgical History Cardiac Cat Permanent IVC filter placed 08/30 EGD and Colonoscopy at [facility] 08/30 S/P bronch, lung bx 07/03/2016, benign squamous metaplasia Vocal Cord Polypectomy Breast Biopsy Laparoscopic Choly Esophageal Dilations Recurrent PortaCath Removed in 11/24 Reported Medications Hydrocodone-Acetaminophen 5-325 mg Tab 1 Tab PO Q6H PRN 14 Days Klonopin (Clonazepam) 0.5 Mg Tab 0.5 Mg PO Q12HR 14 Days Xanax (Alprazolam) 0.5 Mg Tab 0.5 Mg PO Q6H PRN 14 Days Quetiapine (Quetiapine Fumarate) 25 Mg Tab 50 Mg PO BID Levaquin (Levofloxacin) 500 Mg Tab 500 Mg PO DAILY Furosemide 20 Mg Tab 20 Mg PO DAILY Albuterol Neb (Albuterol Sulfate) 2.5 Mg/3 Ml Neb 2.5 Mg INH Q2HR NEB PRN Xarelto (Rivaroxaban) 15 Mg Tab 20 Mg PO DAILY Quetiapine (Quetiapine Fumarate) 25 Mg Tab 25 Mg PO BID Creon (Amylase/Lipase/Protease) 24,000-76,000-120,000 Units Cap 1 Cap PO TID Aspir-81 (Aspirin) 81 Mg Tabdr Lorazepam 1 Mg Tab 1 Mg PO Q4H PRN Lexapro (Escitalopram Oxalate) 20 Mg Tab 20 Mg PO DAILY Seroquel (Quetiapine Fumarate) 50 Mg Tab 50 Mg PO DAILY Mirtazapine 15 Mg Tab 15 Mg PO HS Cymbalta DR (Duloxetine HCl) 30 Mg Capdr 30 Mg PO DAILY Enalapril (Enalapril Maleate) 20 Mg Tab 20 Mg PO DAILY Melatonin 5 Mg Tab 3 Mg PO HS Buspirone (Buspirone HCl) 10 Mg Tab 10 Mg PO TID Metoprolol Tartrate 25 Mg Tab 25 Mg PO TID Levothyroxine (Levothyroxine Sodium) 50 Mcg Tab 50 Mcg PO DAILY Zantac 150 Maximum Strength (Ranitidine HCl) 150 Mg Tab 150 Mg PO BID Mylanta Liq (Youwzees-Bxmbwmlvd-Lfdkclmvyjm Liq) 200-200-20 Mg/5 Ml Susp 30 Ml PO Q8HR Take between meals or as directed. Shake well. Maximum 120 ml/24 hrs. Potassium Chloride ER (Potassium Chloride) 10 Meq Cap 10 Meq PO DAILY Active Ordered Medications Reviewed Family History Reviewed Social History Quit smoking in . Physical Exam Vital Signs Vital Signs Date Time Temp Pulse Resp B/P Pulse Ox O2 Delivery O2 Flow Rate FiO2 11/26/16 05:34 98 18 120/83 98 BiPAP 40 11/26/16 03:25 95 BiPAP 11/26/16 03:25 16 96 BiPAP 11/26/16 03:07 125 18 170/106 94 BiPAP 11/26/16 03:00 100 18 169/91 96 BiPAP 40 11/26/16 02:11 100 75 11/26/16 01:59 140 26 15 11/26/16 01:54 97.6 135 26 94 Physical Exam GENERAL: Well-nourished, well-developed patient, in severe distress stress respiratory extremis SKIN: warm/dry. HEAD: Normocephalic. EYES: No injection or drainage. NECK: Supple, trachea midline. No JVD or lymphadenopathy. CARDIOVASCULAR: Tachycardia rate and rhythm without murmurs, gallops, or rubs. Rhythm appears to be atrial fibrillation with RVR RESPIRATORY: Patient is on BiPAP and respiratory extremis, breathing 50 breath per min. extensive bilateral wheezing very anxious. GASTROINTESTINAL: Abdomen soft MUSCULOSKELETAL: No cyanosis, or edema. BACK: Nontender without obvious deformity. No CVA tenderness. NEURO: Patient's awake, severe respiratory distress limits exam Laboratory Laboratory Tests Test 11/26/16 11/26/16 11/26/16 11/26/16 01:49 01:55 02:35 03:35 White Blood Count 10.6 Red Blood Count 3.92 Hemoglobin 11.5 Hematocrit 35.1 Mean Corpuscular Volume 89.6 Mean Corpuscular Hemoglobin 29.3 Mean Corpuscular Hemoglobin 32.7 Concent Red Cell Distribution Width 18.0 Platelet Count 248 Mean Platelet Volume 8.5 Neutrophils (%) (Auto) 67.7 Lymphocytes (%) (Auto) 19.5 Monocytes (%) (Auto) 9.3 Eosinophils (%) (Auto) 2.8 Basophils (%) (Auto) 0.7 Neutrophils # (Auto) 7.2 Lymphocytes # (Auto) 2.1 Monocytes # (Auto) 1.0 Eosinophils # (Auto) 0.3 Basophils # (Auto) 0.1 CBC Comment DIFF FINAL Differential Comment Prothrombin Time 12.0 Prothromb Time International 1.1 Ratio Activated Partial 29.1 Thromboplast Time Sodium Level 134 Potassium Level 3.9 Chloride Level 97 Carbon Dioxide Level 32.0 Anion Gap 5 Blood Urea Nitrogen 7 Creatinine 1.12 Estimat Glomerular Filtration 48 Rate Random Glucose 157 Calcium Level 10.1 Total Bilirubin 0.8 Aspartate Amino Transf 36 (AST/SGOT) Alanine Aminotransferase 25 (ALT/SGPT) Alkaline Phosphatase 66 B-Type Natriuretic Peptide 391 Total Protein 7.9 Albumin 4.1 Lactic Acid Level 1.7 Blood Gas Puncture Site RT RADIAL RT RADIAL Blood Gas Patient Temperature 98.6 98.6 Blood Gas HCO3 29 30 Blood Gas Base Excess 3.0 4.6 Blood Gas Oxygen Saturation 98 93 Arterial Blood pH 7.27 7.38 Arterial Blood Partial 65 51 Pressure CO2 Arterial Blood Partial 328 78 Pressure O2 Arterial Blood Oxygen Content 15.8 13.3 Arterial Blood 1.1 1.6 Carboxyhemoglobin Arterial Blood Methemoglobin 0.4 0.5 Blood Gas Hemoglobin 10.8 10.1 Oxygen Delivery Device BiPAP BiPAP Blood Gas Ventilator Setting 15.8 Blood Gas Inspired Oxygen 80 40 Date/Time Procedure Status Source Growth 11/26/16 02:05 Aerobic Blood Culture Received Blood Peripheral Pending 11/26/16 02:05 Anaerobic Blood Culture Received Blood Peripheral Pending 11/26/16 01:52 Influenza Types A,B Antigen (RAZA) - Final Complete Nasal Washing NEGATIVE FOR FLU A AND B ANTIGEN.... Result Diagram: 11/26/1614811/26/16148 Imaging CXR shows chronic R lung opacity with volume loss Assessment and Plan Assessment and Plan NEURO: Anxiety depression History of dementia -Hold all antidepressants and anxiety medications. Continue Seroquel at a lower dose 50 mg by mouth twice a day RESP: Acute hypoxemic respiratory failure Acute COPD exacerbation Chronic right lung opacification/atelectasis History of lung cancer (Small cell 2003) -Emergently intubated and placed on PC/AC ventilation -DuoNeb every 4 hours and when necessary, ventilator bundle -Broad-spectrum antibiotics -Consult pulmonology (Dr. Zhou) -IV Solu-Medrol 60 mg every 6 hours CV: Atrial fibrillation with RVR History of carotid disease -Rate controlled after receiving 2.5 mg of metoprolol -Continue metoprolol 25 mg by mouth every 12 -Continue Xarelto -Echo 10/16/16 EF 40-45% GI: -Nothing by mouth, IV Protonix -Start tube feeds in 24 hours : -Monitor renal function closely. Place Barnett catheter. ID: Possible pneumonia -IV vancomycin x1. Azactam and Flagyl for broad-spectrum coverage -Check blood and sputum culture HEME: -Monitor CBC, CMP -Continue Xarelto ENDO: -Electrolyte replacement protocol PROPH: -Bilateral lower extremity SCDs. Continue Xarelto LINES: -Utilize peripheral IVs, central line if needed CC time 90 min excluding procedures Code Status Full Discussed Condition With D/W bedside RN Dulce Noe MD November 26, 2016 07:35
[2016-11-26 07:55] LABS: BACTERIA, URINE RARE /hpf; BLOOD, URINE NEG (NEG); COMMENT (UR) CULT NOT INDICATED; CULTURE IF INDICATED CULT NOT INDICATED; GLUCOSE,URINE NEG (NEG); HYALINE CAST, URINE 21 /lpf (RARE); KETONE, URINE 10 mg/dL (NEG); MUCUS URINE FEW /lpf (OCC); NITRITE,URINE NEG (NEG); URINE COLOR YELLOW (YELLW/STRAW)
[2016-11-26] MEDS: RESP: ALBUTEROL 2.5 MG/IPRATROPIUM 0.5 MG NEB (SCH) NEB ×5 (08:00→23:23)
--- NOTE | 2016-11-26 08:10 | RADRPT ---
EXAM DATE/TIME: 11/26/2016 07:49 [place] COMPARISON: CHEST SINGLE AP, July 28, 2016, 13:04. CHEST SINGLE AP, November 26, 2016, 1:52. INDICATIONS : Respiratory disease, short of breath MEDICAL HISTORY : Carcinoma, lung. SURGICAL HISTORY : right lung surgery ENCOUNTER: Subsequent ACUITY: 2 days PAIN SCORE: Non-responsive. LOCATION: Bilateral chest FINDINGS: A single view of the chest demonstrates almost complete opacification right hemithorax. Endotracheal tube with tip in the right mainstem bronchus. There is volume loss on the right. Left lung is well ae rated.. Osseous structures are intact. CONCLUSION: 1. Endotracheal tube with tip in the right mainstem bronchus and should be retracted 3 cm. 2. Volume loss with near-complete opacification right hemithorax, unchanged. Quang Clarke MD on November 26, 2016 at 8:06 Board Certified Radiologist. This report was verified electronically.
--- NOTE | 2016-11-26 08:13 | EKG ---
Date Performed: 11/26/2016 Time Performed: 07:08:56 PTAGE: 71 years EKG: Probable atrial fibrillation with rapid response Rightward axis Possible anterior infarct - age undetermined Nonspecific ST-T wave changes Abnormal ECG COMPARED TO PRIOR ELECTROCARDIOGRAM, Pro bable atrial fibrillation has replaced wide complex tachycardia. PREVIOUS TRACING : 11/26/2016 07.04 DOCTOR: Bennie Urbina Interpretating Date/Time 11/26/2016 08:11:49
--- NOTE | 2016-11-26 08:13 | EKG ---
Date Performed: 11/26/2016 Time Performed: 07:04:22 PTAGE: 71 years EKG: Wide-complex tachycardia, probably ventricular.This has replaced atrial fibrillation. PREVIOUS TRACING : 11/26/2016 01.57 DOCTOR: Bennie Urbina Interpretating Date/Time 11/26/2016 08:12:37
--- NOTE | 2016-11-26 08:17 | EKG ---
Date Performed: 11/26/2016 Time Performed: 01:57:48 PTAGE: 71 years EKG: ATRIAL FIBRILLATION WITH RAPID VENTRICULAR RESPONSE WITH ABERRANT CONDUCTION OR VENTRICULAR PREMATURE COMPLEXES BORDERLINE RIGHT AXIS DEVIATION NONSPECIFIC ST & T-WAVE ABNORMALITY ABNORMAL RHY THM ECG COMPARED TO PRIOR ELECTROCARDIOGRAM, Atrial fibrillation and nonspecific ST-T wave changes ar e present. PREVIOUS TRACING : 10/20/2016 05.39 DOCTOR: Bennie Urbina Interpretating Date/Time 11/26/2016 08:16:41
[2016-11-26] MEDS: PROPOFOL 1000 MG/100 ML INJ 100 ML IV SCH ×2 (08:24→20:15)
[2016-11-26] MEDS ORDERED: METOPROLOL TARTRATE 5 MG/5 ML VIAL IV PUSH ONE (08:30)
--- NOTE | 2016-11-26 08:43 | HHI.HP ---
HPI Service [facility] Primary Care Physician Unknown Admission Diagnosis acute exacerbation COPD Diagnoses: Chief Complaint: SOB (Sherron Mota) Travel History International Travel<30 Days: No Contact w/Intl Traveler <30 Da: No Traveled to Known Affected Are: No (Sherron Mota) History of Present Illness This is a pleasant 71 year-old female with significant past medical history of COPD oxygen dependent, chronic imaging changes secondary to fibrosis, CAD status post NM 2, dementia, 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 fib, depression, anxiety, hypertension. Patient has been admitted multiple times for COPD exacerbation requiring BiPAP. Patient again presented via EMS for shortness of breath, she is on oxygen at home. Patient was put on nonrebreather and given IV steroids and DuoNeb's. She was put on BiPAP initially. Laboratory workup completed was essentially unremarkable, except for mild elevation in creatinine 1.12. B natruretic peptide 391. Troponin 0.25. Patient was admitted to the intensive care unit on BiPAP. Around 6:30 this morning, she was evaluated by wax cutter and was noted to be in extreme respiratory distress. Patient was mechanically intubated and is currently on propofol. During prior admissions, status and end -of-life care discussions have been held with patient and she has refused hospice and DO NOT RESUSCITATE. There is no family at bedside at this time. Patient is hemodynamically stable. She remains sedated. Patient is admitted for further evaluation and treatment (Sherron Mota) Review of Systems ROS Limitations: Intubated (Sherron Mota) Past Family Social History Past Medical History COPD CAD s/p NM x2 Neck abscess (drained 02/19/16) Esophageal Stricture, s/p esophageal dilation 08/2015 Small Cell Lung Cancer on R 04/21 [id number] Chemo & Radiation Diverticulosis Afib Depression Anxiety HTN Hypothyroidism Dementia Admitted with SOB, found with collapsed right upper lobe, occlusion RUL bronchus , had bronch/lung bx, benign findings. Changes likely due to chronic fibrosis. Left renal mass Takotsubo evaluated via cardiac catheter in 2009 multiple admissions for COPD exacerbation and hypoxia Past Surgical History Vocal Cord Polypectomy Breast Bx Laparoscopic Choly Esophageal Dilations Recurrent PortaCath Removed in 11/24 Cardiac Cath: Dr Urbina Normal Coronaries. Bilateral Cataracts '07 Permanent IVC filter placed 08/30 Rhinolaryngoscopy 2011 Cardiac Cath 01/26 Dr Essie Paz at [facility] Permanent IVC filter placed 08/30 EGD and Colonoscopy at [facility] 08/30 S/P bronch, lung bx 06/2016, benign findings. Reported Medications Reported Meds & Active Scripts Active Hydrocodone-Acetaminophen 5-325 mg Tab 1 Tab PO Q6H PRN 14 Days Klonopin (Clonazepam) 0.5 Mg Tab 0.5 Mg PO Q12HR 14 Days Xanax (Alprazolam) 0.5 Mg Tab 0.5 Mg PO Q6H PRN 14 Days Quetiapine (Quetiapine Fumarate) 25 Mg Tab 50 Mg PO BID Levaquin (Levofloxacin) 500 Mg Tab 500 Mg PO DAILY Furosemide 20 Mg Tab 20 Mg PO DAILY Albuterol Neb (Albuterol Sulfate) 2.5 Mg/3 Ml Neb 2.5 Mg INH Q2HR NEB PRN Xarelto (Rivaroxaban) 15 Mg Tab 20 Mg PO DAILY Quetiapine (Quetiapine Fumarate) 25 Mg Tab 25 Mg PO BID Creon (Amylase/Lipase/Protease) 24,000-76,000-120,000 Units Cap 1 Cap PO TID Reported Aspir-81 (Aspirin) 81 Mg Tabdr Lorazepam 1 Mg Tab 1 Mg PO Q4H PRN Lexapro (Escitalopram Oxalate) 20 Mg Tab 20 Mg PO DAILY Seroquel (Quetiapine Fumarate) 50 Mg Tab 50 Mg PO DAILY Mirtazapine 15 Mg Tab 15 Mg PO HS Cymbalta DR (Duloxetine HCl) 30 Mg Capdr 30 Mg PO DAILY Enalapril (Enalapril Maleate) 20 Mg Tab 20 Mg PO DAILY Melatonin 5 Mg Tab 3 Mg PO HS Buspirone (Buspirone HCl) 10 Mg Tab 10 Mg PO TID Metoprolol Tartrate 25 Mg Tab 25 Mg PO TID Levothyroxine (Levothyroxine Sodium) 50 Mcg Tab 50 Mcg PO DAILY Zantac 150 Maximum Strength (Ranitidine HCl) 150 Mg Tab 150 Mg PO BID Mylanta Liq (Bfvrswgf-Kpnkongwk-Vnecccteuzu Liq) 200-200-20 Mg/5 Ml Susp 30 Ml PO Q8HR Take between meals or as directed. Shake well. Maximum 120 ml/24 hrs. Potassium Chloride ER (Potassium Chloride) 10 Meq Cap 10 Meq PO DAILY (Sherron Mota) Allergies: Coded Allergies: Adhesives (Verified Allergy, Severe, RASK, 07/29/16) skin breakdown Calcium Channel Blockers (Verified Allergy, Severe, DIFFICULTY BREATHING, 07/29/16) Entex LA (Verified Allergy, Severe, Anaphylaxis, 07/29/16) Marcaine (Verified Allergy, Severe, DIFFICULTY BREATHING, 10/13/16) Minocin (Verified Allergy, Severe, DIFFICULTY BREATHING, 10/13/16) Nonsteroidal Anti-Inflammatory Agts (Verified Allergy, Severe, DIFFICULTY BREATHING, 10/13/16) PEANUTS (Verified Allergy, Severe, lips swelling, 10/13/16) Penicillin (Verified Allergy, Severe, DIFFICULTY BREATHING, 10/13/16) Prilosec (Verified Allergy, Severe, DIFFICULTY BREATHING, 10/13/16) Promethazine (Verified Allergy, Severe, DIFFICULTY BREATHING, 10/13/16) Sulfa (Verified Allergy, Severe, DIFFICULTY BREATHING, 10/13/16) Prednisone (Verified Allergy, Intermediate, rash and lips swell, 10/13/16) Zyrtec (Verified Allergy, Intermediate, rash, 10/13/16) Vancomycin (Verified Allergy, Mild, Flushing, 10/17/16) lips tingling Zyprexa (Verified Adverse Reaction, Severe, Severe vomiting., 10/13/16) Fluticasone (Verified Adverse Reaction, Intermediate, Rawness of the skin around the nose. Inhaled steroids do , 10/13/16) the same to her mouth. Omeprazole (Verified Adverse Reaction, Intermediate, [place] funny, 10/13/16) Zithromax (Verified Adverse Reaction, Intermediate, Says it made her jittery and it was harder to breathe. 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 Not sure would get same reaction to Injectable. Lian Huber MD. Jacob (Adverse Reaction, Severe, Caused amnesia and a fall. , 07/10/13) Active Ordered Medications Inpatient Medications Acetaminophen (Tylenol) 650 mg Q4H PRN PO Temp>101F, Headache; Start 11/26/16 at 04:45 Albuterol Sulfate (Albuterol Neb) 2.5 mg Q2HR NEB PRN NEB SOB/WHEEZING; Start 11/26/16 at 04:45 Albuterol/ Ipratropium (Duoneb Neb) 1 ampule Q4HR NEB NEB ; Start 11/26/16 at 08:00 Albuterol/ Ipratropium 1 ampule 1 ampule ONCE ONCE INH Last administered on 03:26; Start 11/26/16 at 03:15; Stop 11/26/16 at 03:16; Status DC Amylase/Lipase/ Protease (Creon 24-76-120) 1 cap TID PO ; Start 11/26/16 at 09: 00; Status UNV Aspirin 81 mg 81 mg DAILY CHEW ; Start 11/26/16 at 09:00; Status UNV Aztreonam 1000 mg/ Sodium Chloride 100 ml @ 200 mls/hr Q8H IV ; Start 11/26/16 at 07:45; Status UNV Aztreonam/Sodium Chloride (Azactam Inj/NS Inj) 100 ml @ 200 mls/hr ONCE ONCE IV Last administered on 11/26/16 05:43; Start 11/26/16 at 04:00; Stop at 04:29; Status DC Chlorhexidine Gluconate (Peridex 0.12% Liq) 15 ml BID@08,20 MT ; Start 11/26/16 at 08:00; Status UNV Etomidate (Amidate Inj) 20 mg ONCE ONCE IV PUSH ; Start 11/26/16 at 02:00; Stop 11/26/16 at 02:01; Status DC Ipratropium [place] (Atrovent Neb) 0.5 mg ONCE ONCE NEB Last administered on 02:04; Start 11/26/16 at 01:45; Stop 11/26/16 at 01:46; Status DC Levothyroxine Sodium (Synthroid) 50 mcg DAILY PO ; Start 11/26/16 at 09:00; Status UNV Lorazepam (Ativan Inj) 1 mg Q6H PRN IV PUSH ANXIETY Last administered on 06:35; Start 11/26/16 at 04:45 Methylprednisolone Sodium Succinate (SoluMEDROL INJ) 60 mg Q6HR IV PUSH ; Start 11/26/16 at 12:00 Metoprolol Tartrate (Lopressor Inj) 2.5 mg ONCE ONCE IV PUSH Last administered on 11/26/16 08:24; Start 11/26/16 at 08:30; Stop 11/26/16 at 08:31 ; Status DC Metoprolol Tartrate (Lopressor) 25 mg TID PO ; Start 11/26/16 at 09:00; Status UNV Metronidazole (Flagyl 500 Mg Inj) 100 ml @ 100 mls/hr Q8H IV ; Start 11/26/16 at 07:45; Status UNV Ondansetron HCl (Zofran Inj) 4 mg Q6H PRN IV NAUSEA OR VOMITING; Start at 04:45 Propofol (Diprivan 1000 Mg/100ml Inj) 100 ml @ 0 mls/hr TITRATE IV Last administered on 11/26/16 08:24; Start 11/26/16 at 02:00 Quetiapine Fumarate (SEROquel) 50 mg BID PO ; Start 11/26/16 at 09:00; Status UNV Rivaroxaban (Xarelto) 20 mg DAILY PO ; Start 11/26/16 at 09:00; Status UNV Rocuronium [place] 50 mg 50 mg BOLUS ONCE IV ; Start 11/26/16 at 02:00; Stop at 02:01; Status DC Sodium Chloride (NS Flush) 2 ml UNSCH PRN IVF FLUSH AFTER USING IV ACCESS; Start 11/26/16 at 04:45 Family History Alcoholism, Drug Abuse, Suicidal Depression/Anxiety. Cancer of the larynx in her brother (Smoker). Sister has gout and renal cancer. One sister has polyposis (Denise), RA in oldest sister. 16 yo niece hung herself. 1 sister with thyroid cancer. Mother was 54 years and killed herself with a 22 pistol. 1 Brother shot himself at age 46. Social History Marital Status: and lives alone. Has [facility], PT services. Living Situation: Lives in own home, son lives across street Tobacco: DC'd cigs in . Alcohol: None Illicit drug use: none (Sherron Mota) Physical Exam Vital Signs Vital Signs Date Time Temp Pulse Resp B/P Pulse Ox O2 Delivery O2 Flow Rate FiO2 11/26/16 05:34 98 18 120/83 98 BiPAP 40 11/26/16 03:25 95 BiPAP 11/26/16 03:25 16 96 BiPAP 11/26/16 03:07 125 18 170/106 94 BiPAP 11/26/16 03:00 100 18 169/91 96 BiPAP 40 11/26/16 02:11 100 75 11/26/16 01:59 140 26 15 11/26/16 01:54 97.6 135 26 94 Physical Exam GENERAL: This is an elderly female currently on vent SKIN: No rashes, ecchymoses or lesions. Cool and dry. HEAD: Atraumatic. Normocephalic. No temporal or scalp tenderness. EYES: Pupils pinpoint, sluggish. No scleral icterus. No injection or drainage. ENT: Nose without bleeding, purulent drainage or septal hematoma. Throat without erythema, tonsillar hypertrophy or exudate. Uvula midline. Airway patent. NECK: Trachea midline. No JVD or lymphadenopathy. Supple, nontender, no meningeal signs. CARDIOVASCULAR: Regular rate and rhythm without murmurs, gallops, or rubs. RESPIRATORY: Coarse ronchi L > R. On mechanical ventilation GASTROINTESTINAL: Abdomen soft, non-tender, nondistended. No hepato-splenomegaly , or palpable masses. No guarding. MUSCULOSKELETAL: Extremities without clubbing, cyanosis, or edema. No joint tenderness, effusion, or edema noted. No calf tenderness. Negative Homans sign bilaterally. NEUROLOGICAL: Sedated on vent Laboratory Laboratory Tests Test 11/26/16 11/26/16 11/26/16 11/26/16 01:49 01:55 02:35 03:35 White Blood Count 10.6 Red Blood Count 3.92 Hemoglobin 11.5 Hematocrit 35.1 Mean Corpuscular Volume 89.6 Mean Corpuscular Hemoglobin 29.3 Mean Corpuscular Hemoglobin 32.7 Concent Red Cell Distribution Width 18.0 Platelet Count 248 Mean Platelet Volume 8.5 Neutrophils (%) (Auto) 67.7 Lymphocytes (%) (Auto) 19.5 Monocytes (%) (Auto) 9.3 Eosinophils (%) (Auto) 2.8 Basophils (%) (Auto) 0.7 Neutrophils # (Auto) 7.2 Lymphocytes # (Auto) 2.1 Monocytes # (Auto) 1.0 Eosinophils # (Auto) 0.3 Basophils # (Auto) 0.1 CBC Comment DIFF FINAL Differential Comment Prothrombin Time 12.0 Prothromb Time International 1.1 Ratio Activated Partial 29.1 Thromboplast Time Sodium Level 134 Potassium Level 3.9 Chloride Level 97 Carbon Dioxide Level 32.0 Anion Gap 5 Blood Urea Nitrogen 7 Creatinine 1.12 Estimat Glomerular Filtration 48 Rate Random Glucose 157 Calcium Level 10.1 Total Bilirubin 0.8 Aspartate Amino Transf 36 (AST/SGOT) Alanine Aminotransferase 25 (ALT/SGPT) Alkaline Phosphatase 66 B-Type Natriuretic Peptide 391 Total Protein 7.9 Albumin 4.1 Lactic Acid Level 1.7 Blood Gas Puncture Site RT RADIAL RT RADIAL Blood Gas Patient Temperature 98.6 98.6 Blood Gas HCO3 29 30 Blood Gas Base Excess 3.0 4.6 Blood Gas Oxygen Saturation 98 93 Arterial Blood pH 7.27 7.38 Arterial Blood Partial 65 51 Pressure CO2 Arterial Blood Partial 328 78 Pressure O2 Arterial Blood Oxygen Content 15.8 13.3 Arterial Blood 1.1 1.6 Carboxyhemoglobin Arterial Blood Methemoglobin 0.4 0.5 Blood Gas Hemoglobin 10.8 10.1 Oxygen Delivery Device BiPAP BiPAP Blood Gas Ventilator Setting 15/.8 15/.4 Blood Gas Inspired Oxygen 80 40 Test 11/26/16 07:30 Urine Color YELLOW Urine Turbidity HAZY Urine pH 7.0 Urine Specific [place] 1.015 Urine Protein 30 Urine Glucose (UA) NEG Urine Ketones 10 Urine Occult Blood NEG Urine Nitrite NEG Urine Bilirubin NEG Urine Urobilinogen LESS THAN 2.0 Urine Leukocyte Esterase NEG Urine RBC 1 Urine WBC 4 Urine Amorphous Sediment RARE Urine Bacteria RARE Urine Hyaline Casts 21 Urine Mucus FEW Microscopic Urinalysis Comment CULT NOT INDICATED Date/Time Procedure Status Source Growth 11/26/16 02:05 Aerobic Blood Culture Received Blood Peripheral Pending 11/26/16 02:05 Anaerobic Blood Culture Received Blood Peripheral Pending 11/26/16 01:52 Influenza Types A,B Antigen (RAZA) - Final Complete Nasal Washing NEGATIVE FOR FLU A AND B ANTIGEN.... (Sherron Mota) Result Diagram: 11/26/16 0149 11/26/16148 Imaging Last Impressions Chest X-Ray 11/26/16 0137 Signed Impressions: Service Date/Time: Saturday, November 26, 2016 01:52 - CONCLUSION: Stable examination of the chest compared to the prior studies with near complete opacification of the right hemithorax. The left lung remains grossly clear. Arie Olvera MD (Sherron Mota) Assessment and Plan Problem List: (1) Respiratory failure (2) NSTEMI (non-ST elevated myocardial infarction) (3) COPD (chronic obstructive pulmonary disease) (4) Atrial fibrillation (5) Chronic kidney disease (6) Hypothyroidism (7) Depression with anxiety (8) HTN (hypertension) (9) History of NM (myocardial infarction) (10) CAD (coronary artery disease) Assessment and Plan 71-year-old female with history of COPD oxygen dependent, CAD, afib, hx lung cancer. Pt. patient presented to the emergency room with shortness of breath, initially put on BiPAP. Patient decompensated requiring mechanical ventilation. Currently in ICU, remains on mechanical ventilation on propofol. 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 Negative for malignancy -Critical care has been consulted, input is appreciated. Patient currently on mechanical ventilation, sedated on propofol. Continue with DuoNeb's Continue with IV steroids -Continue empiric antibiotics and follow cultures Consult her log marker, Dr. Connelly Elevated trop, non-STEMI secondary to cardiac demand -continue with home meds Chronic A. fib, stable Continue with Lopressor 25 mg by mouth 3 times a day Continue with Xarelto Hypertension Continue home medications Depression and anxiety -Continue home and he came Chronic kidney disease stage III, Continue to monitor Avoid nephrotoxic agents Home medications reviewed, initiated as indicated Continue with Xarelto for DVT prophylaxis Pepcid for GI prophylaxis Condition guarded, pt. with multiple admissions for COPD exacerbation and respiratory failure. She has been reluctant to accept hospice services, continues to live alone with home health care.We will reach out to family. Will benefit from palliative care consultation. This patient was seen by myself and Dr. Caputo, this H&P is written on his behalf (Sherron Mota) Assessment and Plan pt seen and examined as above chart reviewed including labs rad data meds and notes dw pulmonolgist sushil mcgraw about plan of care cond melony bueno (Alistair Caputo MD) Physician Certification 2 Midnight Certification Type: Admission for Inpatient Services Order for Inpatient Services The services are ordered in accordance with Medicare regulations or non- Medicare payer requirements, as applicable. In the case of services not specified as inpatient-only, they are appropriately provided as inpatient services in accordance with the 2-midnight benchmark. Estimated LOS (days): 2 2 days is the estimated time the patient will need to remain in the hospital, assuming treatment plan goals are met and no additional complications. Post-Hospital Plan: Not yet determined (Sherron Mota) Problem Qualifiers (1) Respiratory failure: Qualified Code: J96.21 - Acute on chronic respiratory failure with hypoxia and hypercapnia (2) Atrial fibrillation: Qualified Code: I48.2 - Chronic atrial fibrillation (3) Chronic kidney disease: Qualified Code: N18.3 - Stage 3 chronic kidney disease (4) Hypothyroidism: Qualified Code: E03.9 - Hypothyroidism, unspecified type (5) HTN (hypertension): Qualified Code: I10 - Essential hypertension (6) CAD (coronary artery disease): Qualified Code: I25.118 - Coronary artery disease involving [place] coronary artery of [place] heart with other form of angina pectoris Sherron Mota November 26, 2016 08:43 Alistair Caputo MD November 26, 2016 22:12
[2016-11-26 08:49] LABS: CREATINE KINASE 173 U/L (26-192)
[2016-11-26] MEDS: LIPASE/PROTEASE/AMYLASE (24,000/76,000/120,000) CAP PO SCH ×3 (08:56→18:00)
[2016-11-26] MEDS: SODIUM CHLORIDE 0.9% FLUSH 10 ML FLUSH IV FLUSH SCH ×2 (09:00→20:03)
[2016-11-26] MEDS ORDERED: methylPREDNISolone SOD SUCC 40 MG/1 ML VIAL IV PUSH SCH (09:00)
[2016-11-26] MEDS: metroNIDAZOLE 500 MG INJ 100 ML IV SCH ×2 (09:09→18:05)
[2016-11-26] MEDS: METOPROLOL TARTRATE 25 MG TAB PO SCH ×3 (09:09→18:05)
[2016-11-26] MEDS: CHLORHEXIDINE 0.12% (ORAL KIT) 15 ML CUP MT SCH ×2 (09:09→20:02)
[2016-11-26] MEDS: QUEtiapine FUMARATE 25 MG TAB PO SCH ×2 (09:10→20:01)
[2016-11-26] MEDS: RIVAROXABAN 20 MG TAB PO SCH (09:10)
[2016-11-26] MEDS: LEVOTHYROXINE SODIUM 50 MCG TAB PO SCH (09:10)
[2016-11-26] MEDS: ASPIRIN 81 MG CHEW TAB CHEW SCH (09:10)
[2016-11-26 09:16] LABS: CKMB 4.6 NG/ML (0.5-3.6)
[2016-11-26] MEDS: methylPREDNISolone SOD SUCC 125 MG/2 ML VIAL IV PUSH SCH ×2 (11:47→18:05)
--- NOTE | 2016-11-26 12:53 | PD.PROCEDR ---
Procedure Note Procedure Endotracheal intubation Note: After the risks and benefits were discussed the following procedure was performed: INTUBATION: The patient was put in optimal position for the procedure. Rapid sequence intubation was initiated by me using 20 milligrams of etomidate IV and Versed 5 milligrams IV. Rocuronium 50 mg for NM blockade. DL with Mac 4 blade Grade 1 view. Single attempt. The patient was intubated with a 8 cuffed endotracheal tube. Tube placement was confirmed by visualization of the tube and balloon passing through the cords, capnometry and subsequent chest x-ray. Breath sounds were equal and well aerated bilaterally postintubation. No breath sounds over stomach. Patient tolerated procedure well. Dulce Noe MD November 26, 2016 12:53
[2016-11-26] MEDS: AZTREONAM INJ 1,000 MG in SODIUM CHLORIDE 0.9% INJ 100 ML IV SCH ×2 (15:46→21:37)
[2016-11-26 17:43] LABS: BLOOD GAS CARBOXYHEMOGLOBIN 1.4 % (0-4); BLOOD GAS HCO3 28 mmol/L (22-26); BLOOD GAS METHEMOGLOBIN 0.8 % (0-2); BLOOD GAS O2 HGB SATURATION 97 % (90-100); BLOOD GAS OXYGEN CONTENT 14.7 Vol % (12.0-20.0); BLOOD GAS PCO2 36 mmHg (38-42); BLOOD GAS PO2 123 mmHg (61-120); BLOOD GAS TOTAL HGB 10.6 G/DL (12.0-16.0); CRITICAL VALUE NO; OXYGEN DEVICE VENT; TEMP CORR TO 98.6
[2016-11-26 17:44] LABS: DRAW SITE RT RADIAL; FIO2 50 %; NUMBER OF ARTERIAL PUNCTURES 1; STAT NO; ULNAR PULSE PRESENT; VENT SETTINGS PCAC/14/8IP/5PEEP/
--- NOTE | 2016-11-26 20:18 | MB ---
cc: KODI BARRERA DATE OF CONSULTATION: 11/26/2016. REASON FOR CONSULTATION: Respiratory failure, COPD. HISTORY OF PRESENT ILLNESS: This is a 71-year-old lady with a longstanding history of COPD on home oxygen continuously and previous history of small cell lung cancer treated in 2003 who has had chronic opacification of the right lung and has had scarring and narrowing of the right upper lobe as well as the right middle lobe and previous bronchoscopy done two months ago had benign cytology and biopsy. The patient has been experiencing increasing shortness of breath, wheezing and cough, and thus was brought to the emergency room and placed in the intensive care unit. She became quite tachypneic and was in acute distress and thus had to be intubated today and is now on ventilator support at 100% FIO2. Initially she was placed on BiPAP but was unable to tolerate it. The patient has also been placed on Azactam IV as well as Solu-Medrol. Chest x-ray done today showed opacification of the right chest as seen on multiple previous x-rays and she has had a previous CT scan which shows complete consolidation of the right lung field. The patient following intubation has remained stable and her oxygenation did improve and now she is down to FIO2 of 60%. Hemodynamically she is stable. PAST MEDICAL HISTORY: 1. History of chronic opacification of the right lung with atelectasis and bronchial obstruction of the right upper and middle lobe. 2. She was also has had previous history of small cell lung cancer with radiation therapy and chemotherapy more than 10 years ago. 3. She has anxiety with depression. 4. History of recurrent pneumonia. 5. History of atrial fibrillation on Xarelto. 6. Previous history of DVT. 7. History of coronary artery disease with myocardial infarction. 8. History of hypothyroidism PAST SURGICAL HISTORY: Her past history includes: 1. Bronchoscopy and biopsy. 2. IVC filter placement for DVT. 3. History of breast biopsy. 4. Polypectomy of the vocal cords. 5. Cholecystectomy. 6. Esophageal dilatation. MEDICATIONS: Her medication list includes: 1. Xanax 0.5 milligrams PRN. 2. Klonopin 0.5 milligrams at bedtime twice a day.. 3. Levaquin 500 milligrams daily. 4. Lasix 20 milligrams p.o. daily. 5. Lexapro 20 milligrams a day. 6. Enalapril 20 milligrams daily. 7. Metoprolol 25 milligrams twice a day. 8. Xarelto 20 milligrams daily. HABITS: The patient smoked one pack per day for twenty years and then quit. No significant alcohol. She lives alone. FAMILY HISTORY: Noncontributory. REVIEW OF SYSTEMS: The patient is intubated. PHYSICAL EXAMINATION: GENERAL: This is elderly moderately obese white female is intubated and sedated. VITAL SIGNS: Blood pressure is 120/70, pulse 95, respirations 20, temperature 97.5. HEAD, EYES, EARS, NOSE, THROAT: Head normocephalic. The pupils are reactive. The sclerae were injected. Tongue is moist. NECK: The neck is supple without venous distention. No thyromegaly or lymphadenopathy. CHEST: Decreased breath sounds over the right lung field. The left chest has good breath sounds with wheezes in the upper chest. HEART: The heart sounds are regular. S1 and S2. No murmur. No S3. ABDOMEN: Abdomen is soft and protuberant without masses. No organomegaly or tenderness. The bowel sounds are active. EXTREMITIES: No edema. Peripheral pulses are well-felt. NEUROLOGIC: Reflexes are 1+. The patient is sedated. SKIN: No lesions are observed. IMPRESSION: 1. Acute on chronic respiratory failure. 2. Severe COPD with acute exacerbation. 3. Chronic right lung opacification with atelectasis. 4. 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 5. Atrial fibrillation. 6. Obstructive pneumonia. PLAN: 1. The patient will be maintained on ventilator support. 2. FIO2 will be reduced to 40% nebulized DuoNeb solution added four times a day. 3. Solu-Medrol 60 milligrams IV every 8 hours. 4. Repeat chest x-ray in the a.m. 5. Cultures from tracheal aspirate with Gram stain. 6. The patient will be weaned to C-PAP if possible over the next 24-48 hours. Thank you, Dr. Noe, for this consultation. I will follow the case with you. MD REJI Ruth/RAOUL /7:54 PM /8:04 PM
[2016-11-27] VITALS (14 sets, daily range): BP systolic 105–136; BP diastolic 56–69; PULSE 69–82; RESP 14–20; TEMP 98.2–98.7; O2SAT 99–100
[2016-11-27] MEDS: methylPREDNISolone SOD SUCC 40 MG/1 ML VIAL IV PUSH SCH ×3 (02:43→17:27)
[2016-11-27] MEDS: PROPOFOL 1000 MG/100 ML INJ 100 ML IV SCH ×3 (02:43→21:09)
[2016-11-27] MEDS: metroNIDAZOLE 500 MG INJ 100 ML IV SCH ×3 (02:43→16:29)
[2016-11-27] MEDS: RESP: ALBUTEROL 2.5 MG/IPRATROPIUM 0.5 MG NEB (SCH) NEB ×6 (03:27→23:57)
[2016-11-27] MEDS: LEVOTHYROXINE SODIUM 50 MCG TAB PO SCH (05:55)
[2016-11-27] MEDS: AZTREONAM INJ 1,000 MG in SODIUM CHLORIDE 0.9% INJ 100 ML IV SCH ×3 (05:56→21:09)
--- NOTE | 2016-11-27 08:23 | HHI.PR ---
Subjective Remarks on vent sedation off, waking up agitated, follows simple commands no fever overnight hemodynamically stable Objective Objective Results - Vital Signs Date Time Temp Pulse Resp B/P Pulse Ox O2 Delivery O2 Flow Rate FiO2 11/27/16 07:51 100 40 11/27/16 04:17 100 40 11/27/16 04:00 98.4 82 16 123/58 100 11/27/16 04:00 40 11/27/16 02:00 77 11/27/16 01:28 100 40 11/27/16 00:00 40 11/27/16 00:00 82 11/27/16 00:00 98.4 82 20 105/56 100 11/26/16 20:00 40 11/26/16 20:00 98.4 96 16 112/59 100 11/26/16 19:35 100 40 11/26/16 19:00 100 Mechanical Ventilator 40 11/26/16 16:51 100 40 11/26/16 16:00 97.8 67 14 108/59 100 11/26/16 16:00 50 11/26/16 16:00 67 11/26/16 14:00 70 11/26/16 12:19 50 11/26/16 12:02 100 50 11/26/16 12:00 98.3 67 14 109/59 100 11/26/16 12:00 67 11/26/16 12:00 60 11/26/16 10:48 70 11/26/16 10:00 89 11/26/16 10:00 80 11/26/16 09:44 100 80 11/26/16 09:00 80 I/O 11/26/16 11/26/16 11/26/16 11/27/16 11/27/16 11/27/16 06:59 14:59 22:59 06:59 14:59 22:59 Intake Total 198 ml 99 ml 49 ml Output Total 625 ml 350 ml 200 ml Balance -427 ml -251 ml -151 ml IV Total 198 ml 99 ml 49 ml Output Urine Total 625 ml 350 ml 200 ml Gastric Drainage Total 0 ml 0 ml 0 ml # Bowel Movements 1 1 1 Result Diagram: 11/26/16 0149 11/26/16 0149 Imaging Last Impressions Chest X-Ray 11/26/16 0137 Signed Impressions: Service Date/Time: Saturday, November 26, 2016 01:52 - CONCLUSION: Stable examination of the chest compared to the prior studies with near complete opacification of the right hemithorax. The left lung remains grossly clear. Arie Olvera MD Other Results Laboratory Tests Test 11/26/16 11/26/16 11/26/16 09:45 10:10 17:40 Nasal Screen MRSA (PCR) MRSA NOT DETECTED Troponin I 0.25 Blood Gas Puncture Site RT RADIAL Blood Gas Patient Temperature 98.6 Blood Gas HCO3 28 Blood Gas Base Excess 5.0 Blood Gas Oxygen Saturation 97 Arterial Blood pH 7.50 Arterial Blood Partial 36 Pressure CO2 Arterial Blood Partial 123 Pressure O2 Arterial Blood Oxygen Content 14.7 Arterial Blood 1.4 Carboxyhemoglobin Arterial Blood Methemoglobin 0.8 Blood Gas Hemoglobin 10.6 Oxygen Delivery Device VENT Blood Gas Ventilator Setting PCAC/14/8IP/5PEEP/ Blood Gas Inspired Oxygen 50 Date/Time Procedure Status Source Growth 11/26/16 02:05 Aerobic Blood Culture Received Blood Peripheral Pending 11/26/16 02:05 Anaerobic Blood Culture Received Blood Peripheral Pending 11/26/16 01:52 Influenza Types A,B Antigen (RAZA) - Final Complete Nasal Washing NEGATIVE FOR FLU A AND B ANTIGEN.... ROS General: Other (unable to obtain ROS ) Physical Exam Physical Exam GENERAL: This is an elderly female currently on vent SKIN: No rashes, ecchymoses or lesions. Cool and dry. HEAD: Atraumatic. Normocephalic. No temporal or scalp tenderness. EYES: Pupils pinpoint, sluggish. No scleral icterus. No injection or drainage. ENT: Nose without bleeding, purulent drainage or septal hematoma. Throat without erythema, tonsillar hypertrophy or exudate. Uvula midline. Airway patent. NECK: Trachea midline. No JVD or lymphadenopathy. Supple, nontender, no meningeal signs. CARDIOVASCULAR: Regular rate and rhythm without murmurs, gallops, or rubs. RESPIRATORY: Scattered ronchi. On mechanical ventilation GASTROINTESTINAL: Abdomen soft, non-tender, nondistended. No hepato-splenomegaly , or palpable masses. No guarding. MUSCULOSKELETAL: Extremities without clubbing, cyanosis, or edema. No joint tenderness, effusion, or edema noted. No calf tenderness. Negative Homans sign bilaterally. NEUROLOGICAL: waking up, opening eyes, no focal deficits, following simple commands Urinary Catheter: Yes Barnett insert reason: ICU Pt Getting Diuretics Vascular Central Line Catheter: No A/P Diagnosis: (1) Respiratory failure (2) NSTEMI (non-ST elevated myocardial infarction) (3) COPD (chronic obstructive pulmonary disease) (4) Atrial fibrillation (5) Chronic kidney disease (6) Hypothyroidism (7) Depression with anxiety (8) HTN (hypertension) (9) History of CA (myocardial infarction) (10) CAD (coronary artery disease) Assessment and Plan 71-year-old female with history of COPD oxygen dependent, CAD, afib, hx lung cancer. Pt. patient presented to the emergency room with shortness of breath, initially put on BiPAP. Patient decompensated requiring mechanical ventilation. Currently in ICU, remains on mechanical ventilation on propofol. 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 Negative for malignancy -Critical care has been consulted, input is appreciated. Patient currently on mechanical ventilation, sedated on propofol. Continue with DuoNeb's Continue with IV steroids -Continue empiric antibiotics and follow cultures Dr. Connelly's input appreciated Elevated trop, non-STEMI secondary to cardiac demand -continue with home meds Chronic A. fib, stable Continue with Lopressor 25 mg by mouth 3 times a day Continue with Xarelto Hypertension Continue home medications Depression and anxiety -Continue home and he came Chronic kidney disease stage III, Continue to monitor Avoid nephrotoxic agents Continue with Xarelto for DVT prophylaxis Pepcid for GI prophylaxis Condition guarded, pt. with multiple admissions for COPD exacerbation and respiratory failure. She has been reluctant to accept hospice services, continues to live alone with home health care.We will reach out to family. Will benefit from palliative care consultation. Continue with care as above, remains on vent D/W RN D/W Dr. Caputo This patient was seen by myself and Dr. Caputo, this note is written on his behalf Problem Qualifiers (1) Respiratory failure: Qualified Code: J96.21 - Acute on chronic respiratory failure with hypoxia and hypercapnia (2) Atrial fibrillation: Qualified Code: I48.2 - Chronic atrial fibrillation (3) Chronic kidney disease: Qualified Code: N18.3 - Stage 3 chronic kidney disease (4) Hypothyroidism: Qualified Code: E03.9 - Hypothyroidism, unspecified type (5) HTN (hypertension): Qualified Code: I10 - Essential hypertension (6) CAD (coronary artery disease): Qualified Code: I25.118 - Coronary artery disease involving tangir[place]q coronary artery of tangirnaq heart with other form of angina pectoris Sherron Mota November 27, 2016 08:23
--- NOTE | 2016-11-27 08:46 | HHI.CCPN ---
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 Ocampo's previous notes), CAD status post [place] 2,atrial fibrillation,hypertension, dementia. Patient has history of admission to hospital multiple times for COPD exacerbations. Seen in the ER at 1:[address] Cornelius for acute COPD exacerbation. Patient was given DuoNeb breathing treatments, IV Solu-Medrol and Azactam, was placed on BiPAP and admitted to [facility]. Around 6:30 AM I was emergently called to the ICU room. Patient was acutely decompensated. On my evaluation patient was in acute respiratory extremis on BiPAP, breathing about 50 breaths per minute with severe wheezing, extremely anxious and in impending respiratory arrest. Her heart rate was in the 190s. Patient was emergently intubated and placed on mechanical ventilation. Her peak pressures were consistently high due to bronchospasm and I placed her on PCV mode of ventilation. CXR is pending at this time but review of the ER chest x-ray shows chronic opacification of the right lung. I will continue her IV steroids at increased dose continue duo nebs antibiotics in the form of Azactam and Flagyl. Pulmonary Dr. Ocampo will be consulted. 11/27: Remains sedated, orally intubated on mechanical ventilation. Objective Vital Signs Date Time Temp Pulse Resp B/P Pulse Ox O2 Delivery O2 Flow Rate FiO2 11/27/16 07:51 100 40 11/27/16 04:00 98.4 82 16 123/58 11/26/16 19:00 Mechanical Ventilator 11/26/16 01:59 15 Intake and Output 11/26/16 11/26/16 11/27/16 08:00 16:00 00:00 Intake Total 198 ml 99 ml Output Total 625 ml 350 ml Balance -427 ml -251 ml Result Diagram: 11/26/16 0149 11/26/16 0149 Other Results Microbiology Date/Time Procedure Status Source Growth 11/26/16 01:52 Influenza Types A,B Antigen (RAZA) - Final Complete Nasal Washing NEGATIVE FOR FLU A AND B ANTIGEN.... Laboratory Tests Test 11/26/16 17:40 Blood Gas Puncture Site RT RADIAL Blood Gas Patient Temperature 98.6 Blood Gas HCO3 28 mmol/L (22-26) Blood Gas Base Excess 5.0 mmol/L (-2-2) Blood Gas Oxygen Saturation 97 % (90-100) Arterial Blood pH 7.50 (7.380-7.420) Arterial Blood Partial 36 mmHg (38-42) Pressure CO2 Arterial Blood Partial 123 mmHg Pressure O2 (61-120) Arterial Blood Oxygen Content 14.7 Vol % (12.0-20.0) Arterial Blood 1.4 % (0-4) Carboxyhemoglobin Arterial Blood Methemoglobin 0.8 % (0-2) Blood Gas Hemoglobin 10.6 G/DL (12.0-16.0) Oxygen Delivery Device VENT Blood Gas Ventilator Setting PCAC/14/8IP/5PEEP/ Blood Gas Inspired Oxygen 50 % Imaging CXR shows chronic R lung opacity with volume loss Objective Remarks HEENT/ Neuro: Sedated, orally intubated, Pallor present, no icterus, tongue/ mucosa moist Neck: No JVD Chest/Pulm: on mech vent, air entry decreased oral right lung field, scattered rhonchi, no wheezing CVS: S1-S2 regular, no murmur GI/abdomen: soft, nontender, bowel sounds sluggish Extremities: warm bilaterally, no edema A/P Assessment and Plan NEURO: Anxiety depression History of dementia -Hold all antidepressants and anxiety medications. Continue Seroquel at a lower dose 50 mg by mouth twice a day -Continue sedation with propofol, daily sedation vacation RESP: Acute hypoxemic respiratory failure Acute COPD exacerbation Chronic right lung opacification/atelectasis History of lung cancer (Small cell 2003) -Emergently intubated and placed on PC/AC ventilation on 11/26 -DuoNeb every 4 hours and when necessary, ventilator bundle -Broad-spectrum antibiotics -Consulted pulmonology (Dr. Zhou) -IV Solu-Medrol 60 mg every 6 hours CV: Atrial fibrillation with RVR History of carotid disease -Continue metoprolol 25 mg by mouth every 12 -Continue Xarelto -Echo 10/16/16 EF 40-45% GI: - IV Protonix -Start tube feeds with Jevity and advanced to goal as tolerated Renal/: -Strict intake output, monitor and replete electro lites, follow BUN/creatinine. ID: Possible pneumonia -IV vancomycin x1. Azactam and Flagyl for broad-spectrum coverage -Check blood and sputum culture HEME: -Monitor CBC, CMP -Continue Xarelto ENDO: -Electrolyte replacement protocol PROPH: -Bilateral lower extremity SCDs. Continue Xarelto LINES: -Utilize peripheral IVs, central line if needed CC time 40 min excluding procedures Ty Garcia MD November 27, 2016 08:46
[2016-11-27] MEDS: LIPASE/PROTEASE/AMYLASE (24,000/76,000/120,000) CAP PO SCH ×3 (09:00→17:27)
[2016-11-27] MEDS: ASPIRIN 81 MG CHEW TAB CHEW SCH (09:16)
[2016-11-27] MEDS: METOPROLOL TARTRATE 25 MG TAB PO SCH ×3 (09:16→17:27)
[2016-11-27] MEDS: QUEtiapine FUMARATE 25 MG TAB PO SCH ×2 (09:16→21:09)
[2016-11-27] MEDS: SODIUM CHLORIDE 0.9% FLUSH 10 ML FLUSH IV FLUSH SCH ×2 (09:16→21:00)
[2016-11-27] MEDS: CHLORHEXIDINE 0.12% (ORAL KIT) 15 ML CUP MT SCH ×2 (09:17→20:00)
[2016-11-27] MEDS: RIVAROXABAN 20 MG TAB PO SCH (09:26)
--- NOTE | 2016-11-27 15:31 | HHI.PR ---
Subjective Remarks Awake and on Vent support. FIO2 35 %. Good output. On tube feeds Objective Vital Signs Date Time Temp Pulse Resp B/P Pulse Ox O2 Delivery O2 Flow Rate FiO2 11/27/16 12:58 100 40 11/27/16 08:00 40 11/27/16 08:00 72 11/27/16 08:00 99 Mechanical Ventilator 40 11/27/16 08:00 98.4 74 14 119/69 99 11/27/16 07:51 100 40 11/27/16 04:17 100 40 11/27/16 04:00 98.4 82 16 123/58 100 11/27/16 04:00 40 11/27/16 02:00 77 11/27/16 01:28 100 40 11/27/16 00:00 40 11/27/16 00:00 82 11/27/16 00:00 98.4 82 20 105/56 100 11/26/16 20:00 40 11/26/16 20:00 98.4 96 16 112/59 100 11/26/16 19:35 100 40 11/26/16 19:00 100 Mechanical Ventilator 40 11/26/16 16:51 100 40 11/26/16 16:00 97.8 67 14 108/59 100 11/26/16 16:00 50 11/26/16 16:00 67 I/O 11/26/16 11/26/16 11/26/16 11/27/16 11/27/16 11/27/16 07:00 15:00 23:00 07:00 15:00 23:00 Intake Total 198 ml 99 ml 49 ml Output Total 625 ml 350 ml 200 ml Balance -427 ml -251 ml -151 ml IV Total 198 ml 99 ml 49 ml Output Urine Total 625 ml 350 ml 200 ml Gastric Drainage Total 0 ml 0 ml 0 ml # Bowel Movements 1 1 1 Result Diagram: 11/26/16 0149 11/26/169 Objective Remarks GENERAL: This is elderly moderately obese white female is intubated and awake. HEAD, EYES, EARS, NOSE, THROAT: Head normocephalic. The pupils are reactive. The sclerae were injected. Tongue is moist. NECK: The neck is supple without venous distention. No thyromegaly or lymphadenopathy. CHEST: Decreased breath sounds over the right lung field. The left chest has good breath sounds with wheezes in the upper chest. HEART: The heart sounds are regular. S1 and S2. No murmur. No S3. ABDOMEN: Abdomen is soft and protuberant without masses. No organomegaly or tenderness. The bowel sounds are active. EXTREMITIES: No edema. Peripheral pulses are well-felt. NEUROLOGIC: Reflexes are 1+. The patient is sedated. SKIN: No lesions are observed. Assessment and Plan Assessment and Plan IMPRESSION: 1. Acute on chronic respiratory failure. 2. Severe COPD with acute exacerbation. 3. Chronic right lung opacification with atelectasis. 4. 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 5. Atrial fibrillation. 6. Obstructive pneumonia. Plan : 1.Wean FIO2 and vent to CPAP. 2. Cont Nebs qid Duoneb 3. Solumedrol 40 mg IV q6h. 4. Cont antibiotics, Azactam/Levaquin 5. CXR in am. 6. Reduce sedation Wandy Preciado MD November 27, 2016 15:31
[2016-11-27] MEDS: ACETAMINOPHEN 325 MG TAB PO PRN (21:09)
[2016-11-28] VITALS (15 sets, daily range): BP systolic 96–157; BP diastolic 55–93; PULSE 63–112; RESP 14–27; TEMP 97.7–98.7; O2SAT 83–100
[2016-11-28] MEDS: metroNIDAZOLE 500 MG INJ 100 ML IV SCH ×3 (02:38→17:06)
[2016-11-28] MEDS: methylPREDNISolone SOD SUCC 40 MG/1 ML VIAL IV PUSH SCH ×3 (02:39→17:06)
[2016-11-28] MEDS: PROPOFOL 1000 MG/100 ML INJ 100 ML IV SCH ×2 (02:42→04:16)
[2016-11-28] MEDS ORDERED: fentaNYL 2,500 MCG/NS 250 ML IV SCH (03:45)
[2016-11-28] MEDS: RESP: ALBUTEROL 2.5 MG/IPRATROPIUM 0.5 MG NEB (SCH) NEB ×6 (03:50→22:51)
[2016-11-28 04:08] LABS: HEMATOCRIT 31.1 % (35.0-46.0); MEAN CELL VOLUME 88.4 FL (80.0-100.0); MEAN CORPUSCULAR HEMOGLOBIN 29.1 PG (27.0-34.0); MEAN CORPUSCULAR HGB CONC 32.9 % (32.0-36.0); PLATELET COUNT 168 TH/MM3 (150-450); RED BLOOD COUNT 3.51 MIL/MM3 (4.00-5.30); RED CELL DISTRIBUTION WIDTH 18.3 % (11.6-17.2); REVIEW FLAG FINAL; WHITE BLOOD COUNT 5.8 TH/MM3 (4.0-11.0)
[2016-11-28 04:25] LABS: BICARBONATE 28.8 MEQ/L (21.0-32.0); POTASSIUM 3.2 MEQ/L (3.5-5.1)
[2016-11-28] MEDS: AZTREONAM INJ 1,000 MG in SODIUM CHLORIDE 0.9% INJ 100 ML IV SCH ×3 (06:52→21:22)
[2016-11-28] MEDS: LEVOTHYROXINE SODIUM 50 MCG TAB PO SCH (06:53)
[2016-11-28] MEDS: ASPIRIN 81 MG CHEW TAB CHEW SCH (08:49)
[2016-11-28] MEDS: QUEtiapine FUMARATE 25 MG TAB PO SCH ×2 (08:49→20:34)
[2016-11-28] MEDS: RIVAROXABAN 20 MG TAB PO SCH (08:50)
[2016-11-28] MEDS: SODIUM CHLORIDE 0.9% FLUSH 10 ML FLUSH IV FLUSH SCH ×2 (08:51→20:02)
[2016-11-28] MEDS: METOPROLOL TARTRATE 25 MG TAB PO SCH ×3 (08:52→17:07)
[2016-11-28] MEDS: CHLORHEXIDINE 0.12% (ORAL KIT) 15 ML CUP MT SCH ×2 (08:52→20:00)
[2016-11-28] MEDS: LIPASE/PROTEASE/AMYLASE (24,000/76,000/120,000) CAP PO SCH ×3 (08:52→17:08)
--- NOTE | 2016-11-28 10:07 | HHI.PR ---
Subjective Remarks on vent, CPAP awake, following commands eyes open, tracking cooperative no fever hemodynamically stable Objective Objective Results - Vital Signs Date Time Temp Pulse Resp B/P Pulse Ox O2 Delivery O2 Flow Rate FiO2 11/28/16 08:49 99 40 11/28/16 08:35 40 11/28/16 04:00 98.2 83 18 126/72 83 11/28/16 03:50 100 40 11/28/16 01:49 100 40 11/28/16 00:00 40 11/28/16 00:00 98.7 63 14 96/55 100 11/28/16 00:00 100 40 11/27/16 23:00 69 11/27/16 22:09 14 11/27/16 20:25 100 40 11/27/16 20:00 40 11/27/16 20:00 98.7 69 14 136/64 100 11/27/16 19:00 100 Mechanical Ventilator 40 11/27/16 17:13 100 40 11/27/16 16:00 40 11/27/16 16:00 69 11/27/16 16:00 98.4 69 14 121/60 99 11/27/16 12:58 100 40 11/27/16 12:00 98.2 69 14 113/56 100 11/27/16 12:00 69 11/27/16 12:00 40 I/O 11/27/16 11/27/16 11/27/16 11/28/16 11/28/16 11/28/16 07:00 15:00 23:00 07:00 15:00 23:00 Intake Total 49 ml 1055 ml 950 ml 690 ml Output Total 200 ml 275 ml 250 ml Balance -151 ml 780 ml 700 ml 690 ml Intake Oral 0 ml IV Total 49 ml 879 ml 500 ml 240 ml Tube Feeding 146 ml 330 ml 330 ml Other 30 ml 120 ml 120 ml Output Urine Total 200 ml 275 ml 250 ml Stool Total 0 ml Gastric Drainage Total 0 ml 0 ml # Bowel Movements 1 1 Result Diagram: 11/28/164 11/28/16 0314 Imaging Last Impressions Chest X-Ray 11/26/16 0137 Signed Impressions: Service Date/Time: Saturday, November 26, 2016 01:52 - CONCLUSION: Stable examination of the chest compared to the prior studies with near complete opacification of the right hemithorax. The left lung remains grossly clear. Arie Olvera MD Other Results Laboratory Tests Test 11/28/16 03:14 White Blood Count 5.8 Red Blood Count 3.51 Hemoglobin 10.2 Hematocrit 31.1 Mean Corpuscular Volume 88.4 Mean Corpuscular Hemoglobin 29.1 Mean Corpuscular Hemoglobin 32.9 Concent Red Cell Distribution Width 18.3 Platelet Count 168 Mean Platelet Volume 8.3 Sodium Level 140 Potassium Level 3.2 Chloride Level 101 Carbon Dioxide Level 28.8 Anion Gap 10 Blood Urea Nitrogen 19 Creatinine 1.05 Estimat Glomerular Filtration 52 Rate Random Glucose 160 Calcium Level 9.3 Date/Time Procedure Status Source Growth 11/26/16 02:05 Aerobic Blood Culture - Preliminary Resulted Blood Peripheral NO GROWTH IN 1 DAY 11/26/16 02:05 Anaerobic Blood Culture - Preliminary Resulted Blood Peripheral NO GROWTH IN 1 DAY 11/26/16 01:52 Influenza Types A,B Antigen (RAZA) - Final Complete Nasal Washing NEGATIVE FOR FLU A AND B ANTIGEN.... ROS General: Other (unable to obtain ROS) Physical Exam Physical Exam GENERAL: This is an elderly female currently on vent SKIN: No rashes, ecchymoses or lesions. Cool and dry. HEAD: Atraumatic. Normocephalic. No temporal or scalp tenderness. EYES: Pupils pinpoint, sluggish. No scleral icterus. No injection or drainage. ENT: Nose without bleeding, purulent drainage or septal hematoma. Throat without erythema, tonsillar hypertrophy or exudate. Uvula midline. Airway patent. NECK: Trachea midline. No JVD or lymphadenopathy. Supple, nontender, no meningeal signs. CARDIOVASCULAR: Regular rate and rhythm without murmurs, gallops, or rubs. RESPIRATORY: Faint ronchi. On mechanical ventilation GASTROINTESTINAL: Abdomen soft, non-tender, nondistended. No hepato-splenomegaly , or palpable masses. No guarding. MUSCULOSKELETAL: Extremities without clubbing, cyanosis, or edema. No joint tenderness, effusion, or edema noted. No calf tenderness. Negative Homans sign bilaterally. NEUROLOGICAL:awake, following commands, intubated. Calm Urinary Catheter: Yes Barnett insert reason: ICU Pt Getting Diuretics Vascular Central Line Catheter: No A/P Diagnosis: (1) Respiratory failure (2) NSTEMI (non-ST elevated myocardial infarction) (3) COPD (chronic obstructive pulmonary disease) (4) Atrial fibrillation (5) Chronic kidney disease (6) Hypothyroidism (7) Depression with anxiety (8) HTN (hypertension) (9) History of SC (myocardial infarction) (10) CAD (coronary artery disease) Assessment and Plan 71-year-old female with history of COPD oxygen dependent, CAD, afib, hx lung cancer. Pt. patient presented to the emergency room with shortness of breath, initially put on BiPAP. Patient decompensated requiring mechanical ventilation. Currently in ICU, remains on mechanical ventilation on propofol. 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 Negative for malignancy -Critical care has been consulted, input is appreciated. Continue with DuoNeb's Continue with IV steroids -Continue empiric antibiotics and follow cultures Dr. Connelly's input appreciated -improving slowly, on CPAP, poss extubation today. Sedation weaned down. Elevated trop, non-STEMI secondary to cardiac demand -continue with home meds Chronic A. fib, stable Continue with Lopressor 25 mg by mouth 3 times a day Continue with Xarelto Hypertension Continue home medications Depression and anxiety -Continue home and he came Chronic kidney disease stage III, Continue to monitor Avoid nephrotoxic agents Continue with Xarelto for DVT prophylaxis Pepcid for GI prophylaxis Condition guarded, pt. with multiple admissions for COPD exacerbation and respiratory failure. She has been reluctant to accept hospice services, continues to live alone with home health care.We will reach out to family. Will benefit from palliative care consultation. Replace K Improving, poss ext today D/W RN D/W Dr. Caputo This patient was seen by myself and Dr. Caputo, this note is written on his behalf Problem Qualifiers (1) Respiratory failure: Qualified Code: J96.21 - Acute on chronic respiratory failure with hypoxia and hypercapnia (2) Atrial fibrillation: Qualified Code: I48.2 - Chronic atrial fibrillation (3) Chronic kidney disease: Qualified Code: N18.3 - Stage 3 chronic kidney disease (4) Hypothyroidism: Qualified Code: E03.9 - Hypothyroidism, unspecified type (5) HTN (hypertension): Qualified Code: I10 - Essential hypertension (6) CAD (coronary artery disease): Qualified Code: I25.118 - Coronary artery disease involving grayling coronary artery of grayling heart with other form of angina pectoris Sherron Mota 14, 2017 10:07
[2016-11-28] MEDS ORDERED: POTASSIUM CHLORIDE 25 MEQ EFFERVESCENT TAB PO ONE (10:15)
--- NOTE | 2016-11-28 10:53 | HHI.CCPN ---
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 Ocampo's previous notes), CAD status post CT 2,atrial fibrillation,hypertension, dementia. Patient has history of admission to hospital multiple times for COPD exacerbations. Seen in the ER at 1:[address] Cornelius for acute COPD exacerbation. Patient was given DuoNeb breathing treatments, IV Solu-Medrol and Azactam, was placed on BiPAP and admitted to [facility]. Around 6:30 AM I was emergently called to the ICU room. Patient was acutely decompensated. On my evaluation patient was in acute respiratory extremis on BiPAP, breathing about 50 breaths per minute with severe wheezing, extremely anxious and in impending respiratory arrest. Her heart rate was in the 190s. Patient was emergently intubated and placed on mechanical ventilation. Her peak pressures were consistently high due to bronchospasm and I placed her on PCV mode of ventilation. CXR is pending at this time but review of the ER chest x-ray shows chronic opacification of the right lung. I will continue her IV steroids at increased dose continue duo nebs antibiotics in the form of Azactam and Flagyl. Pulmonary Dr. Ocampo will be consulted. 11/27: Remains sedated, orally intubated on mechanical ventilation. 11/28: Remains sedated, orally intubated on mechanical ventilation. Objective Vital Signs Date Time Temp Pulse Resp B/P Pulse Ox O2 Delivery O2 Flow Rate FiO2 11/28/16 08:49 99 40 11/28/16 04:00 98.2 83 18 126/72 11/27/16 19:00 Mechanical Ventilator 11/26/16 01:59 15 Intake and Output 11/27/16 11/27/16 11/27/16 07:59 15:59 23:59 Intake Total 49 ml 1055 ml 950 ml Output Total 200 ml 275 ml 250 ml Balance -151 ml 780 ml 700 ml Result Diagram: 11/28/16 0314 11/28/16 0314 Other Results Microbiology Date/Time Procedure Status Source Growth 11/26/16 01:52 Influenza Types A,B Antigen (RAZA) - Final Complete Nasal Washing NEGATIVE FOR FLU A AND B ANTIGEN.... Imaging CXR shows chronic R lung opacity with volume loss Objective Remarks HEENT/ Neuro: Sedated, orally intubated, Pallor present, no icterus, tongue/ mucosa moist Neck: No JVD Chest/Pulm: on mech vent, air entry decreased oral right lung field, scattered rhonchi, no wheezing CVS: S1-S2 regular, no murmur GI/abdomen: soft, nontender, bowel sounds sluggish Extremities: warm bilaterally, no edema A/P Assessment and Plan NEURO: Anxiety depression History of dementia -Hold all antidepressants and anxiety medications. Continue Seroquel at a lower dose 50 mg by mouth twice a day -Continue sedation with propofol, daily sedation vacation RESP: Acute hypoxemic respiratory failure Acute COPD exacerbation Chronic right lung opacification/atelectasis History of lung cancer (Small cell 2003) -Emergently intubated and placed on ventilation on 11/26 -DuoNeb every 4 hours and when necessary, ventilator bundle -Broad-spectrum antibiotics -Consulted pulmonology (Dr. Ag). Daily C Pap trials. Plan to extubate if tolerating C Pap trials today. -IV Solu-Medrol 60 mg every 6 hours CV: Atrial fibrillation with RVR History of carotid disease -Continue metoprolol 25 mg by mouth every 12 -Continue Xarelto -Echo 10/16/16 EF 40-45% GI: - IV Protonix -On tube feeds with Jevity and advanced to goal as tolerated Renal/: -Strict intake output, monitor and replete electro lites, follow BUN/creatinine. ID: Possible pneumonia -IV vancomycin x1. Azactam and Flagyl for broad-spectrum coverage -Check blood and sputum culture HEME: -Monitor CBC, CMP -Continue Xarelto ENDO: -Electrolyte replacement protocol PROPH: -Bilateral lower extremity SCDs. Continue Xarelto LINES: -Utilize peripheral IVs, central line if needed CC time 40 min excluding procedures Ty Garcia MD November 28, 2016 10:53
--- NOTE | 2016-11-28 13:41 | HHI.PR ---
Subjective Remarks Awake and extubated. On 4 L o2. taking Po diet Objective Vital Signs Date Time Temp Pulse Resp B/P Pulse Ox O2 Delivery O2 Flow Rate FiO2 11/28/16 10:45 100 Nasal Cannula 3 11/28/16 08:49 99 40 11/28/16 08:35 40 11/28/16 08:00 99 Mechanical Ventilator 40 11/28/16 08:00 98.2 69 14 110/56 99 11/28/16 08:00 69 11/28/16 04:00 98.2 83 18 126/72 83 11/28/16 03:50 100 40 11/28/16 01:49 100 40 11/28/16 00:00 40 11/28/16 00:00 98.7 63 14 96/55 100 11/28/16 00:00 100 40 11/27/16 23:00 69 11/27/16 22:09 14 11/27/16 20:25 100 40 11/27/16 20:00 40 11/27/16 20:00 98.7 69 14 136/64 100 11/27/16 19:00 100 Mechanical Ventilator 40 11/27/16 17:13 100 40 11/27/16 16:00 40 11/27/16 16:00 69 11/27/16 16:00 98.4 69 14 121/60 99 I/O 11/27/16 11/27/16 11/27/16 11/28/16 11/28/16 11/28/16 07:00 15:00 23:00 07:00 15:00 23:00 Intake Total 49 ml 1055 ml 950 ml 690 ml Output Total 200 ml 275 ml 250 ml 0 ml Balance -151 ml 780 ml 700 ml 690 ml 0 ml Intake Oral 0 ml IV Total 49 ml 879 ml 500 ml 240 ml Tube Feeding 146 ml 330 ml 330 ml Other 30 ml 120 ml 120 ml Output Urine Total 200 ml 275 ml 250 ml Stool Total 0 ml Gastric Drainage Total 0 ml 0 ml Tube Feeding Residual Discard 0 ml # Bowel Movements 1 1 Result Diagram: 11/28/1631311/28/16313 Objective Remarks GENERAL: This is elderly moderately obese white female alert. HEAD, EYES, EARS, NOSE, THROAT: Head normocephalic. The pupils are reactive. The sclerae were injected. Tongue is moist. NECK: The neck is supple without venous distention. No thyromegaly or lymphadenopathy. CHEST: Decreased breath sounds over the right lung field. The left chest has good breath sounds with wheezes. HEART: The heart sounds are regular. S1 and S2. No murmur. No S3. ABDOMEN: Abdomen is soft and protuberant without masses. No organomegaly or tenderness. The bowel sounds are active. EXTREMITIES: No edema. Peripheral pulses are well-felt. NEUROLOGIC: Reflexes are 1+. The patient is awake SKIN: No lesions are observed. Assessment and Plan Assessment and Plan IMPRESSION: 1. Acute on chronic respiratory failure. 2. Severe COPD with acute exacerbation. 3. Chronic right lung opacification with atelectasis. 4. 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 5. Atrial fibrillation. 6. Obstructive pneumonia. Plan : 1. O2 3 L N/C 2. Cont Nebs qid Duoneb 3. Solumedrol 40 mg IV q8h. 4. Cont antibiotics, Azactam/Levaquin 5. CBC,BMP in am. 6. Transfer to [facility] Wandy Preciado MD November 28, 2016 13:41
[2016-11-28] MEDS: ACETAMINOPHEN 325 MG TAB PO PRN (14:31)
[2016-11-28] MEDS: ALPRAZolam 0.25 MG TAB PO PRN (18:11)
[2016-11-29] VITALS (12 sets, daily range): BP systolic 131–172; BP diastolic 83–96; PULSE 95–108; RESP 15–23; TEMP 97.6–98.9; O2SAT 93–100
[2016-11-29] MEDS: metroNIDAZOLE 500 MG INJ 100 ML IV SCH ×3 (01:27→15:52)
[2016-11-29] MEDS: methylPREDNISolone SOD SUCC 40 MG/1 ML VIAL IV PUSH SCH ×4 (02:19→21:00)
[2016-11-29] MEDS: RESP: ALBUTEROL 2.5 MG/IPRATROPIUM 0.5 MG NEB (SCH) NEB ×6 (03:12→23:22)
[2016-11-29] MEDS: RESP: ALBUTEROL 2.5 MG/3 ML NEB (PRN) NEB (04:57)
[2016-11-29] MEDS: ALPRAZolam 0.25 MG TAB PO PRN ×2 (05:00→08:46)
[2016-11-29] MEDS: LORazepam 2 MG/ML VIAL IV PUSH PRN ×2 (05:15→14:44)
--- NOTE | 2016-11-29 05:51 | RADRPT ---
EXAM DATE/TIME: 11/29/2016 05:29 [place] COMPARISON: CT PULMONARY ANGIOGRAM, July 28, 2016, 15:07. CHEST SINGLE AP, November 26, 2016, 7:49. INDICATIONS : Shortness of breath. Right lung consolidation MEDICAL HISTORY : Carcinoma, lung. SURGICAL HISTORY : Right lung surgery. ENCOUNTER: Subsequent ACUITY: 4 - 6 days PAIN SCORE: Non-responsive. LOCATION: Bilateral chest FINDINGS: A single AP erect view of the chest was obtained and no longer demonstrates the endotracheal tube. Th e lung apices were cut off the study. The right hemithorax remains opacified with only a small amount of aeration in the upper portion. Volume loss is again noted. The left lung is well aerated. The hea rt size appears within normal limits. Multiple overlying electrical leads are present. CONCLUSION: 1. The endotracheal tube is no longer visualized and the patient appears to been extubated. 2. Right lung remains almost completely opacified. Bartolo Araya MD on November 29, 2016 at 5:46 Board Certified Radiologist. This report was verified electronically.
[2016-11-29] MEDS: AZTREONAM INJ 1,000 MG in SODIUM CHLORIDE 0.9% INJ 100 ML IV SCH ×3 (05:57→22:29)
[2016-11-29] MEDS: LEVOTHYROXINE SODIUM 50 MCG TAB PO SCH (06:00)
[2016-11-29 06:13] LABS: BLOOD GAS CARBOXYHEMOGLOBIN 1.6 % (0-4); BLOOD GAS HCO3 28 mmol/L (22-26); BLOOD GAS METHEMOGLOBIN 0.6 % (0-2); BLOOD GAS O2 HGB SATURATION 91 % (90-100); BLOOD GAS OXYGEN CONTENT 13.8 Vol % (12.0-20.0); BLOOD GAS PCO2 48 mmHg (38-42); BLOOD GAS PO2 71 mmHg (61-120); BLOOD GAS TOTAL HGB 10.8 G/DL (12.0-16.0); CRITICAL VALUE NO; DRAW SITE RT RADIAL; FIO2 35 %; NUMBER OF ARTERIAL PUNCTURES 1; OXYGEN DEVICE BIPAP; STAT NO; TEMP CORR TO 98.6; ULNAR PULSE PRESENT; VENT SETTINGS 12 IPAP/5 EPAP
--- NOTE | 2016-11-29 07:26 | HHI.CCPN ---
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 Ocampo's previous notes), CAD status post [place] 2,atrial fibrillation,hypertension, dementia. Patient has history of admission to hospital multiple times for COPD exacerbations. Seen in the ER at 1:[address] Cornelius for acute COPD exacerbation. Patient was given DuoNeb breathing treatments, IV Solu-Medrol and Azactam, was placed on BiPAP and admitted to [facility]. Around 6:30 AM I was emergently called to the ICU room. Patient was acutely decompensated. On my evaluation patient was in acute respiratory extremis on BiPAP, breathing about 50 breaths per minute with severe wheezing, extremely anxious and in impending respiratory arrest. Her heart rate was in the 190s. Patient was emergently intubated and placed on mechanical ventilation. Her peak pressures were consistently high due to bronchospasm and I placed her on PCV mode of ventilation. CXR is pending at this time but review of the ER chest x-ray shows chronic opacification of the right lung. I will continue her IV steroids at increased dose continue duo nebs antibiotics in the form of Azactam and Flagyl. Pulmonary Dr. Ocampo will be consulted. 11/27: Remains sedated, orally intubated on mechanical ventilation. 11/28: Remains sedated, orally intubated on mechanical ventilation. 11/29: Extubated yesterday, overnight back on BiPAP. CXR unchanged. Exam reveals significant wheezing L lung field, R lung breath sounds diminished Objective Vital Signs Date Time Temp Pulse Resp B/P Pulse Ox O2 Delivery O2 Flow Rate FiO2 11/29/16 05:23 95 35 11/29/16 04:00 97.6 101 20 163/89 11/28/16 20:37 Nasal Cannula 2.00 Intake and Output 11/28/16 11/28/16 11/29/16 08:00 16:00 00:00 Intake Total 690 ml 1340 ml 829 ml Output Total 0 ml 401 ml 400 ml Balance 690 ml 939 ml 429 ml Result Diagram: 11/28/164 11/28/164 Other Results Laboratory Tests Test 11/29/16 06:00 Blood Gas Puncture Site RT RADIAL Blood Gas Patient Temperature 98.6 Blood Gas HCO3 28 mmol/L (22-26) Blood Gas Base Excess 3.0 mmol/L (-2-2) Blood Gas Oxygen Saturation 91 % (90-100) Arterial Blood pH 7.38 (7.380-7.420) Arterial Blood Partial 48 mmHg (38-42) Pressure CO2 Arterial Blood Partial 71 mmHg Pressure O2 (61-120) Arterial Blood Oxygen Content 13.8 Vol % (12.0-20.0) Arterial Blood 1.6 % (0-4) Carboxyhemoglobin Arterial Blood Methemoglobin 0.6 % (0-2) Blood Gas Hemoglobin 10.8 G/DL (12.0-16.0) Oxygen Delivery Device BIPAP Blood Gas Ventilator Setting 12 IPAP/5 EPAP Blood Gas Inspired Oxygen 35 % Imaging CXR shows chronic R lung opacity with volume loss Objective Remarks HEENT/ Neuro: On BiPAP, alert awake refuses labs today, Pallor present, no icterus, tongue/mucosa moist Neck: No JVD Chest/Pulm: On BiPAP. Severe exp wheezing on L lung field. R lung sir entry diminished CVS: S1-S2 regular, no murmur GI/abdomen: soft, nontender, bowel sounds sluggish Extremities: warm bilaterally, no edema Urinary Catheter: Yes Assessment to: Continue A/P Assessment and Plan NEURO: Anxiety depression History of dementia -Hold all antidepressants and anxiety medications. Continue Seroquel at a lower dose 50 mg by mouth twice a day -Ativan PRN for anxiety RESP: Acute hypoxemic respiratory failure Acute COPD exacerbation Chronic right lung opacification/atelectasis History of lung cancer (Small cell 2003) -Emergently intubated and placed on ventilation on 11/26. Extubated 11/28, now on BiPAP -DuoNeb every 4 hours and when necessary, ventilator bundle -Broad-spectrum antibiotics -Pulmonology (Dr. Ag). -IV Solu-Medrol 40 mg every 8 hours -Add Symbicort, Spiriva CV: Atrial fibrillation with RVR History of carotid disease -Continue metoprolol 25 mg by mouth every 12 -Continue Xarelto -Echo 10/16/16 EF 40-45% GI: - IV Protonix -NPO until resp status improves Renal/: -Strict intake output, monitor and replete electrolytes, follow BUN/creatinine. ID: Possible pneumonia -IV vancomycin x1 given 11/26. Azactam and Flagyl for broad-spectrum coverage -Blood cultures and influenza negative HEME: -Monitor CBC, CMP -Continue Xarelto ENDO: -Electrolyte replacement protocol PROPH: -Bilateral lower extremity SCDs. Continue Xarelto LINES: -Utilize peripheral IVs, central line if needed CC time 35 min excluding procedures Dulce Noe MD November 29, 2016 07:26
[2016-11-29] MEDS ORDERED: SODIUM PHOSPHATE INJ 30 MMOL in SODIUM CHLOR 0.9% 250 ML INJ 240 ML IV PRN (07:45)
[2016-11-29] MEDS ORDERED: POTASSIUM PHOSPHATE MONOBASIC 500 MG TAB PO PRN (07:45)
[2016-11-29] MEDS ORDERED: POTASSIUM CHLOR 20 MEQ PREMIX 100 ML IV PRN ×2 (07:45)
[2016-11-29] MEDS ORDERED: MAGNESIUM OXIDE 400 MG TAB PO PRN (07:45)
[2016-11-29] MEDS ORDERED: MAGNESIUM SULFATE INJ 2 GM in SODIUM CHLORIDE 0.9% INJ 96 ML IV PRN (07:45)
[2016-11-29] MEDS ORDERED: MAGNESIUM SULFATE INJ 4 GM in SODIUM CHLORIDE 0.9% INJ 92 ML IV PRN (07:45)
[2016-11-29] MEDS ORDERED: POTASSIUM CHLORIDE 25 MEQ EFFERVESCENT TAB PO PRN (07:45)
[2016-11-29] MEDS ORDERED: POTASSIUM CHLOR 40 MEQ PREMIX 100 ML IV-CENTRAL PRN ×2 (07:45)
[2016-11-29] MEDS: CHLORHEXIDINE 0.12% (ORAL KIT) 15 ML CUP MT SCH ×2 (07:53→20:00)
[2016-11-29] MEDS: METOPROLOL TARTRATE 25 MG TAB PO SCH ×3 (08:45→17:55)
[2016-11-29] MEDS: LIPASE/PROTEASE/AMYLASE (24,000/76,000/120,000) CAP PO SCH ×3 (08:45→17:55)
[2016-11-29] MEDS: QUEtiapine FUMARATE 25 MG TAB PO SCH ×3 (08:46→21:00)
[2016-11-29] MEDS: ASPIRIN 81 MG CHEW TAB CHEW SCH (08:46)
[2016-11-29] MEDS: SODIUM CHLORIDE 0.9% FLUSH 10 ML FLUSH IV FLUSH SCH ×3 (08:46→21:00)
[2016-11-29] MEDS: TIOTROPIUM BROMIDE 18 MCG INH INH SCH (09:00)
[2016-11-29] MEDS: BUDESONIDE-FORMOTEROL 160/4.5 MCG INHALER INH SCH ×2 (09:00→21:00)
--- NOTE | 2016-11-29 09:34 | HHI.PR ---
Subjective Remarks resting in bed SOB mild at rest, generalized aches, mild facial grimmace Diminished breath sounds Afebrile Tachycardia mild (Brionna Fuentes) Objective Objective Results - Vital Signs Date Time Temp Pulse Resp B/P Pulse Ox O2 Delivery O2 Flow Rate FiO2 11/29/16 08:26 100 Nasal Cannula 3.00 11/29/16 08:00 98.2 108 20 172/85 97 11/29/16 07:00 94 Bi-Pap 35 11/29/16 07:00 108 11/29/16 05:23 95 35 11/29/16 04:00 97.6 101 20 163/89 93 11/29/16 00:00 98.0 95 18 139/85 95 11/28/16 23:00 93 11/28/16 20:37 96 Nasal Cannula 2.00 11/28/16 20:00 97.8 95 23 153/93 94 11/28/16 19:00 94 Nasal Cannula 2.00 11/28/16 18:00 104 11/28/16 16:00 92 11/28/16 16:00 97.7 92 27 157/80 100 11/28/16 14:00 108 11/28/16 12:00 97.7 112 14 123/76 100 11/28/16 12:00 108 11/28/16 10:45 100 Nasal Cannula 3 11/28/16 10:00 106 I/O 11/28/16 11/28/16 11/28/16 11/29/16 11/29/16 11/29/16 07:00 15:00 23:00 07:00 15:00 23:00 Intake Total 690 ml 1340 ml 829 ml 934 ml Output Total 401 ml 400 ml 1400 ml Balance 690 ml 939 ml 429 ml -466 ml Intake Oral 0 ml 660 ml 580 ml 800 ml IV Total 240 ml 180 ml 249 ml 134 ml Tube Feeding 330 ml 440 ml Other 120 ml 60 ml Output Urine Total 400 ml 400 ml 1400 ml Stool Total 1 ml Tube Feeding Residual Discard 0 ml (Brionna Fuentes) Result Diagram: 11/28/1631311/28/16 0314 ROS General: Fatigue, Weakness, Other (10 point ROS done, positives noted otherwise systems negative, no recent extubation) Pulmonary: Cough, SOB, Wheezing /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 distress. distress. She is awake, responds to verbal stimuli HEAD: Normocephalic , atraumatic OROPHARYNGEAL: Oropharynx without erythema or edema. NECK: Supple. No nuchal rigidity or lymphadenopathy. Trachea midline without deviation. CARDIAC: Regular tachycardic rhythm, regular rate, S1 and S2 are heard. Distant LUNGS: Diminished to auscultation bilaterally worse on the right. Expiratory wheeze heard more on the left lower base, ABDOMEN: Soft, nontender, no organomegaly or masses. Bowel sounds are heard in all four quadrants. EXTREMITIES: No edema. Pulses equal bilateral. NEUROLOGICAL: Patient mood and affect mild anxiety. Oriented SKIN:Warm and moist, pale Objective Remarks I don't want to do all this, refuse labs this a.m. (Brionna Fuentes) A/P Assessment and Plan Acute respiratory failure with hypoxia and hypercarbia COPD exacerbation Pulmonary consulted, input is appreciated. Patient is asking his expert opinion this morning and wants to speak to him DuoNeb's, IV steroids Cultures pending Extubated on 514, currently O2 per nasal cannula but still having shortness of breath at rest. Noted hypokalemia yesterday but received potassium, ordered a recheck of labs but patient is refusing to have them drawn Elevated trop, non-STEMI secondary to cardiac demand -continue with home meds Chronic A. fib, still having some mild tachycardia Continue with Lopressor 25 mg by mouth 3 times a day Hypertension Continue home medications Depression and anxiety, supportive care and medical management -Continue home and he came Chronic kidney disease stage III, Medical management Continue with Xarelto for DVT prophylaxis Pepcid for GI prophylaxis Condition guarded, and continues to struggle with her shortness of breath and respiratory failure/insufficiency. States initially she doesn't want to go through this anymore. Refuse labs this morning. Requesting to speak to pulmonary doctor Patient would benefit from palliative care especially if she is refusing treatment. D/W RN D/W Dr. Caputo, seen on his behalf Problem Qualifiers (1) Respiratory failure: Qualified Code: J96.21 - Acute on chronic respiratory failure with hypoxia and hypercapnia (2) Atrial fibrillation: Qualified Code: I48.2 - Chronic atrial fibrillation (3) Chronic kidney disease: Qualified Code: N18.3 - Stage 3 chronic kidney disease (4) Hypothyroidism: Qualified Code: E03.9 - Hypothyroidism, unspecified type (5) HTN (hypertension): Qualified Code: I10 - Essential hypertension (6) CAD (coronary artery disease): Qualified Code: I25.118 - Coronary artery disease involving [place] coronary artery of [place] heart with other form of angina pectoris (Brionna Fuentes) Assessment and Plan pt seen and examied as above labs and meds reviewed plan of care dw email developer dw pt dw rn [facility] (Alistair Caputo MD) Brionna Fuentes November 29, 2016 09:33 Alistair Caputo MD November 29, 2016 13:03
[2016-11-29] MEDS: RIVAROXABAN 20 MG TAB PO SCH (10:08)
--- NOTE | 2016-11-29 13:14 | HHI.PR ---
Subjective Remarks Awake and anxious. On 4 L o2. taking Po diet. Does not want steroids.IV Objective Vital Signs Date Time Temp Pulse Resp B/P Pulse Ox O2 Delivery O2 Flow Rate FiO2 11/29/16 12:00 98.9 104 22 161/95 98 11/29/16 08:26 100 Nasal Cannula 3.00 11/29/16 08:00 98.2 108 20 172/85 97 11/29/16 07:00 94 Bi-Pap 35 11/29/16 07:00 108 11/29/16 05:23 95 35 11/29/16 04:00 97.6 101 20 163/89 93 11/29/16 00:00 98.0 95 18 139/85 95 11/28/16 23:00 93 11/28/16 20:37 96 Nasal Cannula 2.00 11/28/16 20:00 97.8 95 23 153/93 94 11/28/16 19:00 94 Nasal Cannula 2.00 11/28/16 18:00 104 11/28/16 16:00 92 11/28/16 16:00 97.7 92 27 157/80 100 11/28/16 14:00 108 I/O 11/28/16 11/28/16 11/28/16 11/29/16 11/29/16 11/29/16 07:00 15:00 23:00 07:00 15:00 23:00 Intake Total 690 ml 1340 ml 829 ml 934 ml Output Total 401 ml 400 ml 1400 ml Balance 690 ml 939 ml 429 ml -466 ml Intake Oral 0 ml 660 ml 580 ml 800 ml IV Total 240 ml 180 ml 249 ml 134 ml Tube Feeding 330 ml 440 ml Other 120 ml 60 ml Output Urine Total 400 ml 400 ml 1400 ml Stool Total 1 ml Tube Feeding Residual Discard 0 ml Result Diagram: 11/28/164 11/28/16 0314 Objective Remarks GENERAL: This is elderly moderately obese white female alert. HEAD, EYES, EARS, NOSE, THROAT: Head normocephalic. The pupils are reactive. The sclerae were clear. Tongue is moist. NECK: The neck is supple without venous distention. No thyromegaly or lymphadenopathy. CHEST: Decreased breath sounds over the right lung field. The left chest has good breath sounds with occ wheezes. HEART: The heart sounds are regular. S1 and S2. No murmur. No S3. ABDOMEN: Abdomen is soft and protuberant without masses. No organomegaly or tenderness. The bowel sounds are active. EXTREMITIES: No edema. Peripheral pulses are well-felt. NEUROLOGIC: Reflexes are 1+. SKIN: No lesions are observed. Assessment and Plan Assessment and Plan IMPRESSION: 1. Acute on chronic respiratory failure. 2. Severe COPD with acute exacerbation. 3. Chronic right lung opacification with atelectasis. 4. 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 5. Atrial fibrillation. 6. Obstructive pneumonia. Plan : 1. O2 3 L N/C 2. Cont Nebs qid Duoneb 3. Solumedrol 40 mg IV q12h.and D/C in am 4. Cont antibiotics, Azactam/Levaquin 5. BMP in am. 6. Transfer to [facility] Wandy Preciado MD November 29, 2016 13:14
[2016-11-29] MEDS ORDERED: MORPHINE SULFATE 4 MG/ML INJ IV PUSH PRN (15:30)
[2016-11-29] MEDS: hydrALAZINE HCL 20 MG/ML VIAL IV PUSH PRN (15:50)
[2016-11-30] VITALS (12 sets, daily range): BP systolic 127–170; BP diastolic 59–85; PULSE 72–113; RESP 14–24; TEMP 98.1–98.8; O2SAT 94–100
[2016-11-30] MEDS: hydrALAZINE HCL 20 MG/ML VIAL IV PUSH PRN ×2 (00:21→06:30)
[2016-11-30] MEDS: metroNIDAZOLE 500 MG INJ 100 ML IV SCH ×4 (00:21→23:48)
[2016-11-30] MEDS: RESP: ALBUTEROL 2.5 MG/3 ML NEB (PRN) NEB (00:40)
[2016-11-30] MEDS: RESP: ALBUTEROL 2.5 MG/IPRATROPIUM 0.5 MG NEB (SCH) NEB ×6 (04:00→23:04)
[2016-11-30] MEDS: AZTREONAM INJ 1,000 MG in SODIUM CHLORIDE 0.9% INJ 100 ML IV SCH ×3 (06:11→21:04)
[2016-11-30] MEDS: LEVOTHYROXINE SODIUM 50 MCG TAB PO SCH (06:11)
[2016-11-30] MEDS: LORazepam 2 MG/ML VIAL IV PUSH PRN ×3 (06:23→19:36)
[2016-11-30] MEDS: methylPREDNISolone SOD SUCC 40 MG/1 ML VIAL IV PUSH SCH ×2 (06:30→19:35)
[2016-11-30] MEDS: CHLORHEXIDINE 0.12% (ORAL KIT) 15 ML CUP MT SCH ×2 (08:00→19:15)
--- NOTE | 2016-11-30 08:01 | HHI.CCPN ---
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 Ocampo's previous notes), CAD status post [place] 2,atrial fibrillation,hypertension, dementia. Patient has history of admission to hospital multiple times for COPD exacerbations. Seen in the ER at 1:[address] Cornelius for acute COPD exacerbation. Patient was given DuoNeb breathing treatments, IV Solu-Medrol and Azactam, was placed on BiPAP and [facility]. Around 6:30 AM I was emergently called to the ICU room. Patient was acutely decompensated. On my evaluation patient was in acute respiratory extremis on BiPAP, breathing about 50 breaths per minute with severe wheezing, extremely anxious and in impending respiratory arrest. Her heart rate was in the 190s. Patient was emergently intubated and placed on mechanical ventilation. Her peak pressures were consistently high due to bronchospasm and I placed her on PCV mode of ventilation. CXR is pending at this time but review of the ER chest x-ray shows chronic opacification of the right lung. I will continue her IV steroids at increased dose continue duo nebs antibiotics in the form of Azactam and Flagyl. Pulmonary Dr. Ocampo will be consulted. 11/27: Remains sedated, orally intubated on mechanical ventilation. 11/28: Remains sedated, orally intubated on mechanical ventilation. 11/29: Extubated yesterday, overnight back on BiPAP. CXR unchanged. Exam reveals significant wheezing L lung field, R lung breath sounds diminished 11/30: Continues to require BiPAP overnight. Significant wheezing L nimo filed. patient refused Solu-Medrol yesterday. Even refusing labs Objective Vital Signs Date Time Temp Pulse Resp B/P Pulse Ox O2 Delivery O2 Flow Rate FiO2 11/30/16 05:40 94 35 11/30/16 04:00 98.6 105 22 147/72 11/29/16 20:08 Nasal Cannula 3.00 Intake and Output 11/29/16 11/29/16 11/30/16 08:00 16:00 00:00 Intake Total 934 ml 1400 ml 600 ml Output Total 1400 ml 1525 ml 1600 ml Balance -466 ml -125 ml -1000 ml Result Diagram: 11/28/16 0314 11/28/16 031 Imaging CXR shows chronic R lung opacity with volume loss Objective Remarks HEENT/ Neuro: On BiPAP, alert awake refusing labs and some meds. No focal deficits, Pallor present, no icterus, tongue/mucosa moist Neck: No JVD Chest/Pulm: On BiPAP. Exp wheezing on anterior L lung field. R lung entry diminished CVS: S1-S2 regular, no murmur GI/abdomen: soft, nontender, bowel sounds sluggish Extremities: warm bilaterally, no edema A/P Assessment and Plan NEURO: Anxiety depression History of dementia -Hold all antidepressants and anxiety medications. -Continue Seroquel at a lower dose 50 mg by mouth twice a day -Ativan PRN for anxiety RESP: Acute hypoxemic respiratory failure Acute COPD exacerbation Chronic right lung opacification/atelectasis History of lung cancer (Small cell 2003) -Emergently intubated and placed on ventilation on 11/26. Extubated 11/28, now on BiPAP -DuoNeb every 4 hours and when necessary, ventilator bundle -Broad-spectrum antibiotics -Pulmonology (Dr. Ag). -IV Solu-Medrol 40 mg every 8 hours -Added Symbicort, Spiriva 11/29/16 CV: Atrial fibrillation with RVR History of carotid disease -Continue metoprolol 25 mg by mouth every 12 -Continue Xarelto -Echo 10/16/16 EF 40-45% GI: -IV Protonix -Heart healthy diet Renal/: -Strict intake output, monitor and replete electrolytes, follow BUN/creatinine. ID: Possible pneumonia -IV vancomycin x1 given 11/26. Azactam and Flagyl for broad-spectrum coverage, postobstructive pneumonia -Blood cultures and influenza negative HEME: -Monitor CBC, CMP -Continue Xarelto ENDO: -Electrolyte replacement protocol PROPH: -Bilateral lower extremity SCDs. Continue Xarelto LINES: -Utilize peripheral IVs, central line if needed Level 3 Dulce Noe MD November 30, 2016 08:01
[2016-11-30] MEDS: BUDESONIDE-FORMOTEROL 160/4.5 MCG INHALER INH SCH ×2 (09:00→19:35)
[2016-11-30] MEDS: SODIUM CHLORIDE 0.9% FLUSH 10 ML FLUSH IV FLUSH SCH ×2 (09:00→19:35)
[2016-11-30] MEDS: TIOTROPIUM BROMIDE 18 MCG INH INH SCH (09:00)
[2016-11-30] MEDS: ASPIRIN 81 MG CHEW TAB CHEW SCH (10:56)
[2016-11-30] MEDS: LIPASE/PROTEASE/AMYLASE (24,000/76,000/120,000) CAP PO SCH ×3 (10:56→18:22)
[2016-11-30] MEDS: RIVAROXABAN 20 MG TAB PO SCH (10:56)
[2016-11-30] MEDS: QUEtiapine FUMARATE 25 MG TAB PO SCH ×2 (10:57→19:35)
[2016-11-30] MEDS: METOPROLOL TARTRATE 25 MG TAB PO SCH ×3 (10:57→18:22)
--- NOTE | 2016-11-30 11:04 | PD.CONS ---
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 2016 11:04
[2016-11-30] MEDS ORDERED: LABETALOL HCL 100 MG/20 ML VIAL IV PRN (12:30)
--- NOTE | 2016-11-30 12:43 | HHI.PR ---
Subjective Remarks Awake and lethargic. On 4 L o2. taking Po diet. On a Ventimask 40 %. Objective Vital Signs Date Time Temp Pulse Resp B/P Pulse Ox O2 Delivery O2 Flow Rate FiO2 11/30/16 08:11 100 40 11/30/16 08:11 98 BiPAP 40 11/30/16 07:00 113 11/30/16 07:00 97 Bi-Pap 11/30/16 05:40 94 35 11/30/16 04:00 98.6 105 22 147/72 97 11/30/16 00:00 98.4 105 21 170/85 98 11/29/16 23:00 103 11/29/16 20:08 98 Nasal Cannula 3.00 11/29/16 20:00 98.4 99 15 131/83 95 11/29/16 19:15 95 Nasal Cannula 3.00 11/29/16 16:00 98.7 102 23 150/96 98 11/29/16 15:55 24 11/29/16 15:00 104 I/O 11/29/16 11/29/16 11/29/16 11/30/16 11/30/16 11/30/16 07:00 15:00 23:00 07:00 15:00 23:00 Intake Total 934 ml 1400 ml 600 ml 300 ml Output Total 1400 ml 1525 ml 1600 ml 1300 ml Balance -466 ml -125 ml -1000 ml -1000 ml Intake Oral 800 ml 1100 ml 450 ml IV Total 134 ml 300 ml 150 ml 300 ml Output Urine Total 1400 ml 1525 ml 1600 ml 1300 ml Result Diagram: 11/28/16 0314 11/28/16 0314 Objective Remarks GENERAL: This is elderly moderately obese white female . HEAD, EYES, EARS, NOSE, THROAT: Head normocephalic. The pupils are reactive. The sclerae clear. Tongue is moist. NECK: The neck is supple without venous distention. No thyromegaly or lymphadenopathy. CHEST: Decreased breath sounds over the right lung field. The left chest has good breath sounds with wheezes. HEART: The heart sounds are regular. S1 and S2. No murmur. No S3. ABDOMEN: Abdomen is soft and protuberant without masses. No organomegaly or tenderness. The bowel sounds are active. EXTREMITIES: 1 + edema. Peripheral pulses are well-felt. NEUROLOGIC: Reflexes are 1+. The patient is awake SKIN: No lesions are observed. Assessment and Plan Assessment and Plan IMPRESSION: 1. Acute on chronic respiratory failure. 2. Severe COPD with acute exacerbation. 3. Chronic right lung opacification with atelectasis. 4. 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 5. Atrial fibrillation. 6. Obstructive pneumonia. Plan : 1. O2 4 L N/C 2. Cont Nebs qid Duoneb 3. Solumedrol 40 mg IV q12h. 4. Cont antibiotics, Azactam/Levaquin 5. Chest X ray in am. 6. Transfer to [facility] Wandy Preciado MD November 30, 2016 12:43
--- NOTE | 2016-11-30 14:48 | HHI.PR ---
Subjective Remarks resting in bed O2 mask on, drowsy but responds, Got Ativan at 1300 Diminished breath sounds Afebrile HR 74 when resting for now (Brionna Fuentes) Objective Objective Results - Vital Signs Date Time Temp Pulse Resp B/P Pulse Ox O2 Delivery O2 Flow Rate FiO2 11/30/16 12:00 98.8 83 14 135/63 99 11/30/16 08:11 100 40 11/30/16 08:11 98 BiPAP 40 11/30/16 08:00 98.4 112 19 128/62 100 11/30/16 07:00 113 11/30/16 07:00 97 Bi-Pap 11/30/16 05:40 94 35 11/30/16 04:00 98.6 105 22 147/72 97 11/30/16 00:00 98.4 105 21 170/85 98 11/29/16 23:00 103 11/29/16 20:08 98 Nasal Cannula 3.00 11/29/16 20:00 98.4 99 15 131/83 95 11/29/16 19:15 95 Nasal Cannula 3.00 11/29/16 16:00 98.7 102 23 150/96 98 11/29/16 15:55 24 11/29/16 15:00 104 I/O 11/29/16 11/29/16 11/29/16 11/30/16 11/30/16 11/30/16 07:00 15:00 23:00 07:00 15:00 23:00 Intake Total 934 ml 1400 ml 600 ml 300 ml 592 ml Output Total 1400 ml 1525 ml 1600 ml 1300 ml 325 ml Balance -466 ml -125 ml -1000 ml -1000 ml 267 ml Intake Oral 800 ml 1100 ml 450 ml 250 ml IV Total 134 ml 300 ml 150 ml 300 ml 342 ml Output Urine Total 1400 ml 1525 ml 1600 ml 1300 ml 325 ml (Brionna Fuentes) Result Diagram: 11/28/1631311/28/16313 ROS General: Fatigue, Weakness, Other (10 point ROS done, positives noted, otherwise unremarkable) Pulmonary: Cough (occ), SOB (almost all the time) GI: BM (ckeck bowel regimen) /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 Facial features appear symmetric. OROPHARYNGEAL: Oropharynx without erythema or edema. NECK: Supple. Trachea midline without deviation. CARDIAC: Regular rhythm, regular rate, S1 and S2 are heard. LUNGS: Diminished to auscultation bilaterally. occ wheeze, occ rhonchi or [] rale. Positive use of accessory muscles on inspiration or expiration most of the time. ABDOMEN:round, Soft, nontender, no organomegaly or masses. Bowel sounds active EXTREMITIES: no LE edema. Cold rt. foot, but pulse palpable, lt, leg warm, Hammer toes bilateral . great toes. NEUROLOGICAL: Patient mood and affect sedate for now. Does respond to verbal stimuli SKIN:Warm, dry (Brionna Fuentes) A/P Assessment and Plan Acute respiratory failure with hypoxia and hypercarbia, Patient is currently calm and resting without struggle. Was requiring Bipap this am. COPD exacerbation Pulmonary consulted, input is appreciated. DuoNeb's, IV steroids Cultures pending Extubated on 11-28, currently requiring mask at 50%. Will attempt to wean to 35 % while patient is calm. O2 sat 100 Rt foot cool to touch, pulse palpable, SCDs off and elevated and wrapped with cover. No doscoloration, but will monitor. Elevated trop, non-STEMI secondary to cardiac demand -continue with home meds Chronic A. fib, still having some mild tachycardi off and on, but now 74 while patient is calm. Ativan given for SOB and restlessness. Effective tx. plan. Continue with Lopressor 25 mg by mouth 3 times a day Hypertension Continue home medications Depression and anxiety, supportive care and medical management Chronic kidney disease stage III, luong catheter, urine cranberry colored, U/A and culture done if warrented. Eval for possible UTI Continue with Xarelto for DVT prophylaxis Pepcid for GI prophylaxis Palliative care to follow. ID her wishes and family support. D/W RN D/W Dr. Caputo, seen on his behalf Problem Qualifiers (1) Respiratory failure: Qualified Code: J96.21 - Acute on chronic respiratory failure with hypoxia and hypercapnia (2) Atrial fibrillation: Qualified Code: I48.2 - Chronic atrial fibrillation (3) Chronic kidney disease: Qualified Code: N18.3 - Stage 3 chronic kidney disease (4) Hypothyroidism: Qualified Code: E03.9 - Hypothyroidism, unspecified type (5) HTN (hypertension): Qualified Code: I10 - Essential hypertension (6) CAD (coronary artery disease): Qualified Code: I25.118 - Coronary artery disease involving [place] coronary artery of [place] heart with other form of angina pectoris (Brionna Fuentes) Assessment and Plan pt seen and examined as above labs and meds reviewed previous notes reviewed [employer] input 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
[2016-11-30] MEDS: METOCLOPRAMIDE HCL 10 MG/2 ML VIAL IV SCH ×2 (16:29→23:48)
[2016-11-30 16:48] LABS: BACTERIA, URINE MOD /hpf; BLOOD, URINE LARGE (NEG); GLUCOSE,URINE NEG (NEG); KETONE, URINE NEG (NEG); NITRITE,URINE NEG (NEG); TRANSITIONAL EPI CELLS, URINE 2 /hpf
[2016-11-30 16:49] LABS: URINE COLOR LIGHT-RED (YELLW/STRAW)
[2016-11-30 16:50] LABS: COMMENT (UR) CATH-CULTURE IND; CULTURE IF INDICATED CATH CULTURE IND
[2016-12-01] VITALS (11 sets, daily range): BP systolic 119–160; BP diastolic 59–80; PULSE 78–110; RESP 14–34; TEMP 97.8–99.3; O2SAT 94–100
[2016-12-01 03:24] LABS: AUTOMATED NEUTROPHIL # 5.8 TH/MM3 (1.8-7.7); BASOPHIL % 0.1 % (0.0-2.0); EOSINOPHIL % 0.1 % (0.0-4.0); HEMATOCRIT 30.3 % (35.0-46.0); HEMO FLAGS DIFF FINAL; LYMPH % 5.8 % (9.0-44.0); LYMPHOCYTE # 0.4 TH/MM3 (1.0-4.8); MEAN CORPUSCULAR HEMOGLOBIN 29.5 PG (27.0-34.0); MEAN CORPUSCULAR HGB CONC 33.1 % (32.0-36.0); MONO % 3.1 % (0.0-8.0); NEUT % 90.9 % (16.0-70.0); PLATELET COUNT 161 TH/MM3 (150-450); RED BLOOD COUNT 3.41 MIL/MM3 (4.00-5.30); RED CELL DISTRIBUTION WIDTH 18.3 % (11.6-17.2); WHITE BLOOD COUNT 6.4 TH/MM3 (4.0-11.0)
[2016-12-01] MEDS: LORazepam 2 MG/ML VIAL IV PUSH PRN ×2 (03:49→22:03)
[2016-12-01 03:56] LABS: ALKALINE PHOSPHATASE 42 U/L (45-117); ALT (GPT) 60 U/L (10-53); ANION GAP 5 MEQ/L (5-15); AST (GOT) 50 U/L (15-37); BLOOD UREA NITROGEN 23 MG/DL (7-18); CHLORIDE 104 MEQ/L (98-107); GLOMERULAR FILTRATION RATE 80 ML/MIN (>89); MAGNESIUM 2.6 MG/DL (1.5-2.5); POTASSIUM 4.7 MEQ/L (3.5-5.1); SODIUM (NA) 139 MEQ/L (136-145); TOTAL BILIRUBIN ADULT 0.6 MG/DL (0.2-1.0)
[2016-12-01] MEDS: RESP: ALBUTEROL 2.5 MG/IPRATROPIUM 0.5 MG NEB (SCH) NEB ×6 (04:00→22:34)
[2016-12-01] MEDS: AZTREONAM INJ 1,000 MG in SODIUM CHLORIDE 0.9% INJ 100 ML IV SCH ×3 (04:11→21:04)
[2016-12-01] MEDS: LEVOTHYROXINE SODIUM 50 MCG TAB PO SCH (04:11)
--- NOTE | 2016-12-01 05:45 | RADRPT ---
EXAM DATE/TIME: 12/01/2016 04:48 [facility] COMPARISON: CHEST SINGLE AP, November 29, 2016, 5:29. INDICATIONS : Shortness of breath. MEDICAL HISTORY : Carcinoma, lung. Myocardial infarction. Chronic obstructive pulmonary disease. CHF SURGICAL HISTORY : Cholecystectomy. Right lung surgery. ENCOUNTER: Subsequent ACUITY: 1 week PAIN SCORE: Non-responsive. LOCATION: Bilateral chest FINDINGS: A single AP semierect view of the chest was obtained and again demonstrates volume loss in the right hemithorax with near-complete opacification. There is tracheal deviation to the right. There is mild hazy opacity in the left lung base. The heart size is at the upper limits of normal. There overlying electrocardiogram leads. CONCLUSION: No significant change. Bartolo Araya MD on December 01, 2016 at 5:42 Board Certified Radiologist. This report was verified electronically.
--- NOTE | 2016-12-01 07:42 | HHI.CCPN ---
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 Ocampo's previous notes), CAD status post PR 2,atrial fibrillation,hypertension, dementia. Patient has history of admission to hospital multiple times for COPD exacerbations. Seen in the ER at 1:[address] Cornelius for acute COPD exacerbation. Patient was given DuoNeb breathing treatments, IV Solu-Medrol and Azactam, was placed on BiPAP and admitted to [facility]. Around 6:30 AM I was emergently called to the ICU room. Patient was acutely decompensated. On my evaluation patient was in acute respiratory extremis on BiPAP, breathing about 50 breaths per minute with severe wheezing, extremely anxious and in impending respiratory arrest. Her heart rate was in the 190s. Patient was emergently intubated and placed on mechanical ventilation. Her peak pressures were consistently high due to bronchospasm and I placed her on PCV mode of ventilation. CXR is pending at this time but review of the ER chest x-ray shows chronic opacification of the right lung. I will continue her IV steroids at increased dose continue duo nebs antibiotics in the form of Azactam and Flagyl. Pulmonary Dr. Ocampo will be consulted. 11/27: Remains sedated, orally intubated on mechanical ventilation. 11/28: Remains sedated, orally intubated on mechanical ventilation. 11/29: Extubated yesterday, overnight back on BiPAP. CXR unchanged. Exam reveals significant wheezing L lung field, R lung breath sounds diminished 11/30: Continues to require BiPAP overnight. Significant wheezing L nimo filed. patient refused Solu-Medrol yesterday. Even refusing labs 12/01: continued to refuse medications and labs yesterday. however, improving today. remained on NC overnight. Objective Vital Signs Date Time Temp Pulse Resp B/P Pulse Ox O2 Delivery O2 Flow Rate FiO2 12/01/16 04:00 98.9 84 25 154/75 96 11/30/16 19:51 Nasal Cannula 4.00 11/30/16 08:11 40 Intake and Output 11/30/16 11/30/16 12/01/16 08:00 16:00 00:00 Intake Total 300 ml 592 ml 168 ml Output Total 1300 ml 325 ml 400 ml Balance -1000 ml 267 ml -232 ml Result Diagram: 12/01/1631512/01/16315 Imaging CXR shows chronic R lung opacity with volume loss Objective Remarks HEENT/ Neuro: on NC. alert awake refusing labs and some meds. No focal deficits , Pallor present, no icterus, tongue/mucosa moist Neck: No JVD Chest/Pulm: on NC o2. scant wheezes. unlabored. equal chest rise. CVS: tachycardic rate, regular rhythm. sinus by tele. GI/abdomen: soft, nontender, no guarding. Extremities: warm bilaterally, no edema A/P Assessment and Plan NEURO: Anxiety depression History of dementia -Hold all antidepressants and anxiety medications. -Continue Seroquel at a lower dose 50 mg by mouth twice a day -Ativan PRN for anxiety RESP: Acute hypoxemic respiratory failure Acute COPD exacerbation Chronic right lung opacification/atelectasis History of lung cancer (Small cell 2003) -Emergently intubated and placed on ventilation on 11/26. Extubated 11/28, now on BiPAP -DuoNeb every 4 hours and when necessary, ventilator bundle -Broad-spectrum antibiotics -Pulmonology (Dr. Ag). -IV Solu-Medrol 40 mg every 8 hours -Symbicort, Spiriva 11/29/16 CV: Atrial fibrillation with RVR History of carotid disease -increase metoprolol 37.5 mg q8h -Continue Xarelto -Echo 10/16/16 EF 40-45% GI: -Heart healthy diet Renal/: -Strict intake output, monitor and replete electrolytes, follow BUN/creatinine. ID: Possible pneumonia -Azactam and Flagyl for broad-spectrum coverage, postobstructive pneumonia, anticipate 7 day course of abx unless clinical decline, anticipated stop date . -Blood cultures and influenza negative HEME: -Monitor CBC, CMP -Continue Xarelto ENDO: -Electrolyte replacement protocol PROPH: -Bilateral lower extremity SCDs. Continue Xarelto LINES: -Utilize peripheral IVs, central line if needed Dispo: stable for transfer to floor. Critical Care medicine will sign off. Please re-consult as needed. Level 3 Sohan Vasquez MD December 01, 2016 07:42
[2016-12-01] MEDS ORDERED: PILL SPLITTER OTHER PRN (08:00)
[2016-12-01] MEDS: CHLORHEXIDINE 0.12% (ORAL KIT) 15 ML CUP MT SCH ×2 (08:00→20:00)
--- NOTE | 2016-12-01 09:07 | HHI.PR ---
Subjective Remarks resting in bed drowsy but responds, wants to sleep still refusing most of her meds Afebrile Activity to be OOB New UTI, luong out. (Brionna Fuentes) Objective Objective Results - Vital Signs Date Time Temp Pulse Resp B/P Pulse Ox O2 Delivery O2 Flow Rate FiO2 12/01/16 04:00 98.9 84 25 154/75 96 12/01/16 00:00 99.3 82 25 150/67 96 11/30/16 23:00 74 11/30/16 23:00 72 11/30/16 20:00 98.5 82 24 127/71 96 11/30/16 19:51 96 Nasal Cannula 4.00 11/30/16 19:00 97 Nasal Cannula 3.00 Bi-Pap 11/30/16 16:00 98.1 74 14 128/59 96 11/30/16 15:00 72 11/30/16 12:00 98.8 83 14 135/63 99 I/O 11/30/16 11/30/16 11/30/16 12/01/16 12/01/16 12/01/16 07:00 15:00 23:00 07:00 15:00 23:00 Intake Total 300 ml 592 ml 168 ml 611 ml Output Total 1300 ml 325 ml 400 ml 325 ml Balance -1000 ml 267 ml -232 ml 286 ml Intake Oral 250 ml 360 ml IV Total 300 ml 342 ml 168 ml 251 ml Output Urine Total 1300 ml 325 ml 400 ml 325 ml (Brionna Fuentes) Result Diagram: 12/01/166 12/01/16 0316 Other Results Last Impressions Chest X-Ray 12/01/16 0600 Signed Impressions: Service Date/Time: Thursday, December 01, 2016 04:48 - CONCLUSION: No significant change. Bartolo Araya MD Medications and IVs Administered Medications Medications (Trade) Dose Ordered Sig/Lorie Route PRN Reason Start Time Stop Time Status Last Admin Dose Admin Ondansetron HCl (Zofran Inj) 4 mg Q6H PRN IV NAUSEA OR VOMITING 11/26/16 04:45 12/01/16 03:49 Acetaminophen (Tylenol) 650 mg Q4H PRN PO Temp>101F, Headache 11/26/16 04:45 11/28/16 14:31 Sodium Chloride (NS Flush) 2 ml BID IV FLUSH 11/26/16 09:00 11/30/16 19:35 Lorazepam (Ativan Inj) 1 mg Q6H PRN IV PUSH ANXIETY 11/26/16 04:45 12/01/16 03:49 Levothyroxine Sodium (Synthroid) 50 mcg DAILY@06 PO 11/26/16 09:00 12/01/16 04:11 Amylase/Lipase/ Protease (Creon 24-76-120) 1 cap TID PO 11/26/16 09:00 11/30/16 18:22 Quetiapine Fumarate (SEROquel) 50 mg BID PO 11/26/16 09:00 11/30/16 19:35 Rivaroxaban (Xarelto) 20 mg DAILY PO 11/26/16 09:00 11/30/16 10:56 Aspirin 81 mg 81 mg DAILY CHEW 11/26/16 09:00 11/30/16 10:56 Aztreonam 1000 mg/ Sodium Chloride 100 ml @ 200 mls/hr Q8H IV 11/26/16 14:00 12/02/16 23:59 12/01/16 04:11 Metronidazole (Flagyl 500 Mg Inj) 100 ml @ 100 mls/hr Q8H IV 11/26/16 09:00 12/02/16 23:59 11/30/16 23:48 Chlorhexidine Gluconate (Peridex 0.12% Liq) 15 ml BID@08,20 MT 11/26/16 08:00 11/28/16 20:00 Alprazolam (Xanax) 0.25 mg Q6H PRN PO ANXIETY 11/28/16 17:30 11/29/16 08:46 Budesonide/ Formoterol Fumarate (Symbicort 160-4.5 Inh) 1 puff Q12HR INH 11/29/16 09:00 11/29/16 09:00 Tiotropium [place] (Spiriva Inh) 18 mcg DAILY INH 11/29/16 09:00 11/29/16 09:00 Methylprednisolone Sodium Succinate (SoluMEDROL INJ) 40 mg BID IV PUSH 11/29/16 21:00 11/30/16 19:35 Morphine Sulfate (Morphine Inj) 2 mg Q3H PRN IV PUSH pain 6-10 11/29/16 15:30 11/29/16 15:50 Hydralazine HCl (Apresoline Inj) 20 mg Q4H PRN IV PUSH SYS BP GREATER THAN 160 MMHG 11/29/16 15:30 11/30/16 06:30 Metoclopramide HCl (Reglan Inj) 5 mg Q8H IV 11/30/16 16:00 11/30/16 23:48 (Brionna Fuentes) ROS General: Fatigue, Weakness Cardiac: Other (afib controlled) Pulmonary: Cough (occ), SOB (exertional) /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 responds to verbal stimuli HEAD: Normocephalic without any lesion or mass noted. Facial features appear symmetric. OROPHARYNGEAL: Oropharynx without erythema or edema. NECK: Supple. No nuchal rigidity or lymphadenopathy. Trachea midline without deviation. CARDIAC: irrRegular rhythm, regular rate, S1 and S2 are heard. LUNGS: Diminished to auscultation bilaterally. Expiratory wheeze, occasional cough and rhonchi No use of accessory muscles on inspiration or expiration at rest ABDOMEN: Round, obese ,Soft, nontender, no organomegaly or masses. Bowel sounds present EXTREMITIES: no edema. Pulses equal bilateral. Right extremity cooler than the left, pulse present no discoloration NEUROLOGICAL: Patient mood drowsy, somewhat withdrawn feelings SKIN:Warm, dry Objective Remarks I just want to sleep this morning (Brionna Fuentes) A/P Assessment and Plan Acute respiratory failure with hypoxia and hypercarbia, Patient is currently calm and resting without struggle. Responds verbally but wants to sleep. COPD exacerbation , now possible pna Pulmonary consulted, input is appreciated. DuoNeb's, IV steroids Cultures, no growth Extubated on 11-28, currently requiring mask at 50%. Back to O2 at 3L, NC SCDs , rt. foot elevated in bed. transfer out of intensive care Activity to increase, OOB daily and PT. to assist. Elevated trop, non-STEMI secondary to cardiac demand -continue with home meds , medical management Chronic A. fib, HR controlled, Ativan given for SOB and restlessness. Effective tx. plan. medical management Hypertension, controlled. Continue home medications Depression and anxiety, supportive care and medical management Chronic kidney disease stage III, UTI luong catheter, urine cranberry colored Positive urine, culture pending, start Levaquin IV today. Remove luong catheter Continue with Xarelto for DVT prophylaxis Pepcid for GI prophylaxis Bowel regimen, laxative today if no BM x 3 DAY, CHECK FOR IMPACTION AND CHART. Palliative care to follow. Son has been in contract . Wants full code, continue aggressive care. D/W RN D/W Dr. Caputo, seen on his behalf D/W patient, Problem Qualifiers (1) Respiratory failure: Qualified Code: J96.21 - Acute on chronic respiratory failure with hypoxia and hypercapnia (2) Atrial fibrillation: Qualified Code: I48.2 - Chronic atrial fibrillation (3) Chronic kidney disease: Qualified Code: N18.3 - Stage 3 chronic kidney disease (4) Hypothyroidism: Qualified Code: E03.9 - Hypothyroidism, unspecified type (5) HTN (hypertension): Qualified Code: I10 - Essential hypertension (6) CAD (coronary artery disease): Qualified Code: I25.118 - Coronary artery disease involving [place] coronary artery of [place] heart with other form of angina pectoris (Brionna Fuentes) Assessment and Plan Patient seen and examined as above Meds and labs reviewed Discussed with RN on the floor Appreciate systems security consultant help Plan of care discussed with WIRER Discussed with patient Waiting for bed to be transferred Physical therapy for deconditioning (Alistair Caputo MD) Brionna Fuentes December 01, 2016 09:07 Alistair Caputo MD December 01, 2016 15:54
[2016-12-01] MEDS: methylPREDNISolone SOD SUCC 40 MG/1 ML VIAL IV PUSH SCH (09:21)
[2016-12-01] MEDS: METOCLOPRAMIDE HCL 10 MG/2 ML VIAL IV SCH ×3 (09:21→23:30)
[2016-12-01] MEDS: QUEtiapine FUMARATE 25 MG TAB PO SCH ×2 (09:22→21:04)
[2016-12-01] MEDS: metroNIDAZOLE 500 MG INJ 100 ML IV SCH ×2 (09:22→16:33)
[2016-12-01] MEDS: RIVAROXABAN 20 MG TAB PO SCH (09:22)
[2016-12-01] MEDS: LIPASE/PROTEASE/AMYLASE (24,000/76,000/120,000) CAP PO SCH ×3 (09:22→16:32)
[2016-12-01] MEDS: ASPIRIN 81 MG CHEW TAB CHEW SCH (09:22)
[2016-12-01] MEDS: METOPROLOL TARTRATE 25 MG TAB PO SCH ×3 (09:24→23:30)
[2016-12-01] MEDS: TIOTROPIUM BROMIDE 18 MCG INH INH SCH (09:25)
[2016-12-01] MEDS: SODIUM CHLORIDE 0.9% FLUSH 10 ML FLUSH IV FLUSH SCH ×2 (09:26→21:00)
[2016-12-01] MEDS: BUDESONIDE-FORMOTEROL 160/4.5 MCG INHALER INH SCH ×2 (09:26→21:00)
[2016-12-01] MEDS: LEVOFLOXACIN 500 MG PREMIX INJ 100 ML IV SCH (10:11)
--- NOTE | 2016-12-01 12:41 | HHI.PR ---
Subjective Remarks Alert and feels better. On 4 L o2. taking Po diet. On a N/C 3 L. Objective Vital Signs Date Time Temp Pulse Resp B/P Pulse Ox O2 Delivery O2 Flow Rate FiO2 12/01/16 04:00 98.9 84 25 154/75 96 12/01/16 00:00 99.3 82 25 150/67 96 11/30/16 23:00 74 11/30/16 23:00 72 11/30/16 20:00 98.5 82 24 127/71 96 11/30/16 19:51 96 Nasal Cannula 4.00 11/30/16 19:00 97 Nasal Cannula 3.00 Bi-Pap 11/30/16 16:00 98.1 74 14 128/59 96 11/30/16 15:00 72 I/O 11/30/16 11/30/16 11/30/16 12/01/16 12/01/16 12/01/16 07:00 15:00 23:00 07:00 15:00 23:00 Intake Total 300 ml 592 ml 168 ml 611 ml Output Total 1300 ml 325 ml 400 ml 325 ml Balance -1000 ml 267 ml -232 ml 286 ml Intake Oral 250 ml 360 ml IV Total 300 ml 342 ml 168 ml 251 ml Output Urine Total 1300 ml 325 ml 400 ml 325 ml Result Diagram: 12/01/1631512/01/16315 Objective Remarks GENERAL: This is elderly moderately obese white female . HEAD, EYES, EARS, NOSE, THROAT: Head normocephalic. The pupils are reactive. The sclerae clear. Tongue is moist. NECK: The neck is supple without venous distention. No thyromegaly or lymphadenopathy. CHEST: Decreased breath sounds over the right lung field. The left chest has good breath sounds with occ wheezes. HEART: The heart sounds are regular. S1 and S2. No murmur. No S3. ABDOMEN: Abdomen is soft and protuberant without masses. No organomegaly or tenderness. The bowel sounds are active. EXTREMITIES: No edema. Peripheral pulses are well-felt. NEUROLOGIC: Reflexes are 1+. The patient is awake SKIN: No lesions are observed. Assessment and Plan Assessment and Plan IMPRESSION: 1. Acute on chronic respiratory failure. 2. Severe COPD with acute exacerbation. 3. Chronic right lung opacification with atelectasis. 4. 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 5. Atrial fibrillation. 6. Obstructive pneumonia. Plan : 1. O2 4 L N/C 2. Cont Nebs qid Duoneb 3. D/C Solumedrol 4. Cont antibiotics, Azactam/Levaquin 5. CBC, BMP 6. Transfer to [facility] Wandy Preciado MD December 01, 2016 12:41
--- NOTE | 2016-12-01 13:58 | HHI.HCPN ---
Reason for visit a. To assist with evaluation and management of symptoms including: Dyspnea, anxiety, chronic pain b. To assist medical decision maker(s) with: better understanding of current medical conditions; weighing benefits/burdens of medical treatment options; making medical treatment decisions. . Subjective/Interval History Ms. Tillman is a 71 year old female currently admitted with acute COPD exacerbation. PMH includes CHF, COPD, CAD s/p ND x 2, h/o esophageal stricture, h/o small cell lung cancer s/p chemotherapy and radiation in 2004, diverticulosis, atrial fibrillation, depression/anxiety, hypothyroidism and HTN. Patient has been hospitalized 12 times in the past year. Follow-up visit for symptom management and clarification of medical treatment goals. Patient currently tolerating 3-4L oxygen via nasal cannula, oxygen saturation 96%. Patient reporting ongoing shortness of breath with minimal exertion, appears dyspneic with conversation. Follow-up chest x-ray on 2016 showing no significant change, right lung remains almost completely opacified. Lab work 12/01/2016: = WBC: 6.4, hemoglobin 10.0, hematocrit 30.3, platelets 161, neutrophils 90.9% = Sodium: 139, potassium 4.7, chloride 104, carbon dioxide 30.0, glucose 133, calcium 8.9, phosphorus 2.3, magnesium 2.6 = BUN: 23, creatinine 0.72, GFR 80 = Total bilirubin: 0.6, AST 50, ALT 60, alkaline phosphatase 42 = Troponin: 2.07 = Total protein: 5.9, albumin 2.8 Urine culture from 11/30/2016: + Enterococcus. Started on Levofloxacin, remains on Azactam and Flagyl. Patient reporting fatigue, asking to return to bed. Ongoing anxiety reported. Discussed medical treatment goals and end-of-life care issues with both patient and patient's son (via telephone). Both continue to verbalize aggressive goals. Patient stating she plans to return to the SNF for ongoing rehabilitation after discharge, hoping to return to her home in the future ( where she was living independently prior to her most recent hospitalization in ). . Family/friend interactions Spoke with patient's son, Larry, via telephone. Update provided on patient's clinical condition, current medications were reviewed. . Advance Directives Health Care Surrogate: Copy in medical record Advance Directive Specifics Date completed: 03/16/2016 . Health Care Surrogate(s): Patient has designated her son, Larry Tillman, as the health care surrogate decision maker. . Objective Vital Signs Date Time Temp Pulse Resp B/P Pulse Ox O2 Delivery O2 Flow Rate FiO2 12/01/16 04:00 98.9 84 25 154/75 96 12/01/16 00:00 99.3 82 25 150/67 96 11/30/16 23:00 74 11/30/16 23:00 72 11/30/16 20:00 98.5 82 24 127/71 96 11/30/16 19:51 96 Nasal Cannula 4.00 11/30/16 19:00 97 Nasal Cannula 3.00 Bi-Pap 11/30/16 16:00 98.1 74 14 128/59 96 11/30/16 15:00 72 Intake & Output 12/01/16 12/01/16 07:00 19:00 Intake Total 779 ml Output Total 725 ml Balance 54 ml Intake Oral 360 ml IV Total 419 ml Output Urine Total 725 ml . Physical Exam CONSTITUTIONAL/GENERAL: This is an adequately nourished, elderly female patient in no apparent distress. TUBES/LINES/DRAINS: Barnett catheter, NC, PIV x 4 SKIN: No jaundice, rashes, or lesions. Ecchymoses on upper extremities. No wounds seen anteriorly. Skin temperature appropriate. Not diaphoretic. HEAD: Atraumatic. Normocephalic. EYES: Pupils equal and round and reactive. . No scleral icterus. No injection or drainage. Fundi not examined. ENT: Hearing grossly normal. Nose without bleeding or purulent drainage. NECK: Trachea midline. Supple, nontender. No palpable thyroid enlargement or nodularity. CARDIOVASCULAR: Regular rate and rhythm without murmurs, gallops, or rubs. No JVD. Peripheral pulses symmetric. RESPIRATORY/CHEST: Breath sounds diminished bilaterally with scattered rale; expiratory wheeze. Shortness of breath up served with conversation; Intermittent accessory muscle use noted. GASTROINTESTINAL: Abdomen soft, non-tender, nondistended. No hepato-splenomegaly , or palpable masses. No guarding. Bowel sounds present. GENITOURINARY: Without palpable bladder distension. Barnett catheter in place. MUSCULOSKELETAL: Trace edema BLE LYMPHATICS: No palpable cervical or supraclavicular adenopathy. NEUROLOGICAL: More alert today, answering questions, follows commands. PSYCHIATRIC: Ongoing anxiety. . . . Diagnostic Tests Laboratory Laboratory Tests Test 11/29/16 11/30/16 12/01/16 06:00 15:42 03:16 Blood Gas Puncture Site RT RADIAL Blood Gas Patient Temperature 98.6 Blood Gas HCO3 28 mmol/L (22-26) Blood Gas Base Excess 3.0 mmol/L (-2-2) Blood Gas Oxygen Saturation 91 % (90-100) Arterial Blood pH 7.38 (7.380-7.420) Arterial Blood Partial 48 mmHg (38-42) Pressure CO2 Arterial Blood Partial 71 mmHg Pressure O2 (61-120) Arterial Blood Oxygen Content 13.8 Vol % (12.0-20.0) Arterial Blood 1.6 % (0-4) Carboxyhemoglobin Arterial Blood Methemoglobin 0.6 % (0-2) Blood Gas Hemoglobin 10.8 G/DL (12.0-16.0) Oxygen Delivery Device BIPAP Blood Gas Ventilator Setting 12 IPAP/5 EPAP Blood Gas Inspired Oxygen 35 % Urine Color LIGHT-RED (YELLW/STRAW) Urine Turbidity HAZY (CLEAR) Urine pH 7.0 (5.0-8.5) Urine Specific [place] 1.019 (1.002-1.035) Urine Protein 30 mg/dL (NEG-TRACE) Urine Glucose (UA) NEG mg/dL (NEG) Urine Ketones NEG mg/dL (NEG) Urine Occult Blood LARGE (NEG) Urine Nitrite NEG (NEG) Urine Bilirubin NEG (NEG) Urine Urobilinogen LESS THAN 2.0 MG/DL (LESS THAN 2.0) Urine Leukocyte Esterase LARGE (NEG) Urine RBC /hpf (0-3) Urine WBC /hpf (0-5) Urine WBC Clumps MANY (NONE) Urine Transitional Epithelial 2 /hpf (NONE) Cells Urine Amorphous Sediment RARE Urine Bacteria MOD /hpf (NONE) Microscopic Urinalysis Comment CATH-CULTURE IND White Blood Count 6.4 TH/MM3 (4.0-11.0) Red Blood Count 3.41 MIL/MM3 (4.00-5.30) Hemoglobin 10.0 GM/DL (11.6-15.3) Hematocrit 30.3 % (35.0-46.0) Mean Corpuscular Volume 89.0 FL (80.0-100.0) Mean Corpuscular Hemoglobin 29.5 PG (27.0-34.0) Mean Corpuscular Hemoglobin 33.1 % Concent (32.0-36.0) Red Cell Distribution Width 18.3 % (11.6-17.2) Platelet Count 161 TH/MM3 (150-450) Mean Platelet Volume 8.3 FL (7.0-11.0) Neutrophils (%) (Auto) 90.9 % (16.0-70.0) Lymphocytes (%) (Auto) 5.8 % (9.0-44.0) Monocytes (%) (Auto) 3.1 % (0.0-8.0) Eosinophils (%) (Auto) 0.1 % (0.0-4.0) Basophils (%) (Auto) 0.1 % (0.0-2.0) Neutrophils # (Auto) 5.8 TH/MM3 (1.8-7.7) Lymphocytes # (Auto) 0.4 TH/MM3 (1.0-4.8) Monocytes # (Auto) 0.2 TH/MM3 (0-0.9) Eosinophils # (Auto) 0.0 TH/MM3 (0-0.4) Basophils # (Auto) 0.0 TH/MM3 (0-0.2) CBC Comment DIFF FINAL Differential Comment Sodium Level 139 MEQ/L (136-145) Potassium Level 4.7 MEQ/L (3.5-5.1) Chloride Level 104 MEQ/L (98-107) Carbon Dioxide Level 30.0 MEQ/L (21.0-32.0) Anion Gap 5 MEQ/L (5-15) Blood Urea Nitrogen 23 MG/DL (7-18) Creatinine 0.72 MG/DL (0.50-1.00) Estimat Glomerular Filtration 80 ML/MIN (>89) Rate Random Glucose 133 MG/DL (74-106) Calcium Level 8.9 MG/DL (8.5-10.1) Phosphorus Level 2.3 MG/DL (2.5-4.9) Magnesium Level 2.6 MG/DL (1.5-2.5) Total Bilirubin 0.6 MG/DL (0.2-1.0) Aspartate Amino Transf 50 U/L (15-37) (AST/SGOT) Alanine Aminotransferase 60 U/L (10-53) (ALT/SGPT) Alkaline Phosphatase 42 U/L (45-117) Troponin I 0.07 NG/ML (0.02-0.05) Total Protein 5.9 GM/DL (6.4-8.2) Albumin 2.8 GM/DL (3.4-5.0) . Result Diagram: 12/01/16 0316 12/01/16 0316 Microbiology Microbiology Date/Time Procedure Status Source Growth 11/30/16 15:42 Urine Culture - Preliminary Resulted Urine Clean Catch Group D Enterococcus Imaging Last 72 hours Impressions Chest X-Ray 12/01/16 0600 Signed Impressions: Service Date/Time: Thursday, December 01, 2016 04:48 - CONCLUSION: No significant change. Bartolo Araya MD Chest X-Ray 11/29/16 0000 Signed Impressions: Service Date/Time: Tuesday, November 29, 2016 05:29 - CONCLUSION: 1. The endotracheal tube is no longer visualized and the patient appears to been extubated. 2. Right lung remains almost completely opacified. Bartolo Araya MD . Procedures 11/26/2016: Intubation 11/28/2016: Extubation . Assessment and Plan Disease Oriented Problem List: (1) COPD (chronic obstructive pulmonary disease) (2) HTN (hypertension) (3) Hypothyroidism (4) Depression with anxiety (5) Chronic Renal Failure / insufficiency, unspec (6) CHF (congestive heart failure) (7) CAD (coronary artery disease) (8) Supplemental oxygen dependent (9) DVT prophylaxis (10) Atrial fibrillation (11) Chronic pain (12) History of ND (myocardial infarction) (13) Diverticulosis Symptom Scale: (1) Chronic pain Comment: Morphine 2 mg IV push every 3 hours as needed for pain rated 6/10; 24- hour dosage total = 2 mg 1. . (2) SOB (shortness of breath) Comment: Breath sounds diminished bilaterally with scattered rales; expiratory wheezing; dyspnea with conversation; intermittent accessory muscle use noted. Follow-up chest x-ray on 12/01/2016 showing no significant change, right lung remains almost completely opacified. . (3) Anxiety Comment: Patient has underlying history of anxiety, currently exacerbated secondary to shortness of breath. Orders for lorazepam 1 mg IV push every 6 hours as needed for anxiety; 24-hour dosing requirements = 1mg x 3 Pertinent Non-Medical Issues Psychosocial:Per EMR and patient interview, Ms. Tillman is originally from [place]. She had 4 sisters and brothers. Patient states she has lost 3 family members to suicide, her mother, her brother and a niece. Patient quit going to school after ninth grade. 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 She moved to [place] approximately 48 years ago with her before they . Patient was for approximately 19 years, together they had one son ( Larry Tillman), who lives locally. 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 Patient states she currently lives independently at home, however documentation states patient is living in a nursing facility. Spiritual: Yazdanism adeline Legal: Health care surrogate form completed 03/16/16, designating the patient's son (Larry) as the HCS. Ethical issues impacting care: No ethical issues impacting care at this time. . Important Contacts Larry Tillman, son: [phone] . Prognosis Ms. Tillman is a 71 year old female who is familiar to palliative care team. She has a long-standing history of COPD on continuous supplemental oxygen 2L via nasal cannula at home with multiple comorbid conditions. The patient has been hospitalized approximately 12 times past 12 months. In February, the patient reported having increased difficulty caring for herself secondary to weakness and fatigue. She reported dyspnea with minimal exertion, stating she could only walk 10-15 feet independently before becoming short of breath. Patient was lethargic on exam s/p receiving lorazepam. Spoke with patient's son , Ruben, via telephone. He indicates the patient was living alone until her last hospitalization in October, and has been residing at a SNF for rehabilitation since that time. Given patient's advanced age, decline in functional status and multiple hospitalizations within the past year-her overall prognosis is poor. Patient is appropriate for hospice services when/if medical treatment goals become . Plan * FULL CODE * Decision-making: Patient's son, Larry Tillman, is the designated health care surrogate decision maker. * Goals: CODE STATUS preference and end-of-life care/have been ongoing during prior admissions. Patient has previously verbalized aggressive goals and did not want to consider transitioning to comfort focus care/hospice. Goals remain aggressive at this time. * Discussed medical treatment goals and end-of-life care issues with both patient and patient's son (via telephone). Both continue to verbalize aggressive goals. Patient stating she plans to return to the SNF for ongoing rehabilitation after discharge, hoping to return to her home in the future ( where she was living independently prior to her most recent hospitalization in ). * Symptom managementdyspnea: Breath sounds diminished bilaterally with scattered rales; expiratory wheezing; dyspnea with conversation; intermittent accessory muscle use noted. Follow-up chest x-ray on 12/01/2016 showing no significant change, right lung remains almost completely opacified. * Symptom managementanxiety: Patient has underlying history of anxiety, currently exacerbated secondary to shortness of breath. Patient is currently on Seroquel 50 mg PO 2 times daily; additionally PRN orders for both Lorazepam and Alprazolam every 6 hours PRN. Recommendation to discontinue alprazolam, patient' s uses PRN lorazepam at home for symptom management. * Symptom managementpain: Patient has a history of chronic back pain. Showing no nonverbal signs or symptoms of pain on exam. Morphine 2 mg IV push every 3 hours as needed for pain rated 6/10; 24-hour dosage total = 2 mg 1. * Patient's son is verbalizing concerns that multiple medication changes are being made during this hospitalization and requests that changes in the patient' s medication regime be limited. He states when the patient was last discharged from [facility] in 10/2016, she was placed in a SNF and the messed up her medications. The patient's son says he transferred her to [facility], and they had just adjusted her medications before she was admitted. * Palliative care will continue to follow this patient throughout his hospitalization to establish trust, assist with symptom management and clarification of medical treatment goals. . Attestation To help prompt me to consider important information that might be impacting today's encounter and assessment, information from prior notes written by myself or my colleagues may have been "brought forward" into today's note. My signature on this note, however, is an attestation that I personally performed the exam, history, and/or decision-making noted today, and, unless otherwise indicated, the interactions with patient, family, and staff as well as the review of records all occurred today. I also attest that the listed assessment and stated plan reflect my best clinical judgment today based on the combination of historical information, prior notes, and today's exam/ interactions. When time spent is documented, it refers only to time spent today by the signer, or if indicated, combined time spent today by collaborating physician/nurse practitioner. . Donna Raines December 01, 2016 13:58
[2016-12-01] MEDS: ALPRAZolam 0.25 MG TAB PO PRN ×2 (18:14→23:30)
[2016-12-02] VITALS (15 sets, daily range): BP systolic 137–164; BP diastolic 63–76; PULSE 70–94; RESP 12–26; TEMP 97.9–98.6; O2SAT 92–100
[2016-12-02] MEDS: metroNIDAZOLE 500 MG INJ 100 ML IV SCH ×3 (00:16→15:45)
[2016-12-02] MEDS: RESP: ALBUTEROL 2.5 MG/IPRATROPIUM 0.5 MG NEB (SCH) NEB ×6 (03:34→22:15)
[2016-12-02] MEDS: LEVOTHYROXINE SODIUM 50 MCG TAB PO SCH (06:29)
[2016-12-02] MEDS: ALPRAZolam 0.25 MG TAB PO PRN ×2 (06:29→12:48)
[2016-12-02] MEDS: AZTREONAM INJ 1,000 MG in SODIUM CHLORIDE 0.9% INJ 100 ML IV SCH ×3 (06:29→21:13)
[2016-12-02] MEDS: CHLORHEXIDINE 0.12% (ORAL KIT) 15 ML CUP MT SCH ×2 (08:00→21:12)
[2016-12-02] MEDS: METOCLOPRAMIDE HCL 10 MG/2 ML VIAL IV SCH (09:54)
[2016-12-02] MEDS: SODIUM CHLORIDE 0.9% FLUSH 10 ML FLUSH IV FLUSH SCH ×2 (09:55→21:12)
[2016-12-02] MEDS: LIPASE/PROTEASE/AMYLASE (24,000/76,000/120,000) CAP PO SCH ×3 (09:55→18:07)
[2016-12-02] MEDS: ASPIRIN 81 MG CHEW TAB CHEW SCH (09:56)
[2016-12-02] MEDS: QUEtiapine FUMARATE 25 MG TAB PO SCH ×2 (09:56→21:12)
[2016-12-02] MEDS: RIVAROXABAN 20 MG TAB PO SCH (09:56)
[2016-12-02] MEDS: BUDESONIDE-FORMOTEROL 160/4.5 MCG INHALER INH SCH ×2 (09:58→21:12)
[2016-12-02] MEDS: TIOTROPIUM BROMIDE 18 MCG INH INH SCH (09:58)
[2016-12-02] MEDS: METOPROLOL TARTRATE 25 MG TAB PO SCH ×2 (09:58→15:45)
[2016-12-02] MEDS: LEVOFLOXACIN 500 MG PREMIX INJ 100 ML IV SCH (09:59)
--- NOTE | 2016-12-02 12:25 | HHI.HCPN ---
Reason for visit a. To assist with evaluation and management of symptoms including: Dyspnea, anxiety, chronic pain b. To assist medical decision maker(s) with: better understanding of current medical conditions; weighing benefits/burdens of medical treatment options; making medical treatment decisions. . Subjective/Interval History Ms. Tillman is a 71 year old female currently admitted with acute COPD exacerbation. PMH includes CHF, COPD, CAD s/p IN x 2, h/o esophageal stricture, h/o small cell lung cancer s/p chemotherapy and radiation in 2004, diverticulosis, atrial fibrillation, depression/anxiety, hypothyroidism and HTN. Patient has been hospitalized 12 times in the past year. Follow-up visit for symptom management and clarification of medical treatment goals. Patient on 4L via nasal cannula, oxygen saturation 100%. She denies shortness of breath on exam. Follow-up chest x-ray on 12/01/2016 showed no significant change, right lung remains almost completely opacified. No recent lab work available. Urine culture from 11/30/2016: + Enterococcus. Receiving IV Levofloxacin, Azactam and Flagyl. Patient reporting ongoing fatigue and weakness, asking " Why am I not getting better". Reviewed patient's extensive medical history and frequent hospitalization, explaining that she becomes increasingly debilitated with each episode. Patient verbalizes understanding but reiterates aggressive goals stating " Well, I can just give up. I have family ya know". Patient stating she plans to return to the SNF for ongoing rehabilitation after discharge, hoping to return to her home in the future (where she was living independently prior to her most recent hospitalization in 10/2016). . Advance Directives Health Care Surrogate: Copy in medical record Advance Directive Specifics Date completed: 03/16/2016 . Health Care Surrogate(s): Patient has designated her son, Larry Tillman, as the health care surrogate decision maker. . Objective Vital Signs Date Time Temp Pulse Resp B/P Pulse Ox O2 Delivery O2 Flow Rate FiO2 12/02/16 08:00 98.2 83 18 164/69 98 12/02/16 07:14 100 Nasal Cannula 4.00 12/02/16 07:00 98 Nasal Cannula 3.00 12/02/16 06:00 73 12/02/16 04:00 73 12/02/16 04:00 98.1 73 12 145/63 98 12/02/16 02:00 73 12/02/16 00:00 87 12/02/16 00:00 97.9 87 25 160/76 98 12/01/16 22:00 85 12/01/16 20:00 98.1 90 34 160/73 94 12/01/16 19:43 100 Nasal Cannula 3.00 12/01/16 19:00 98 Nasal Cannula 3.00 12/01/16 18:00 90 12/01/16 16:00 98 12/01/16 16:00 98.0 110 20 148/80 98 12/01/16 15:23 99 Nasal Cannula 3.00 12/01/16 15:00 96 Intake & Output 12/02/16 12/02/16 07:00 19:00 Intake Total 1267 ml 120 ml Output Total 550 ml Balance 1267 ml -430 ml Intake Oral 720 ml 120 ml IV Total 547 ml Output Urine Total 550 ml # Voids 6 # Bowel Movements 1 1 . Physical Exam CONSTITUTIONAL/GENERAL: This is an adequately nourished, elderly female patient in no apparent distress. TUBES/LINES/DRAINS: Barnett catheter, NC, PIV x 4 SKIN: No jaundice, rashes, or lesions. Ecchymoses on upper extremities. No wounds seen anteriorly. Skin temperature appropriate. Not diaphoretic. HEAD: Atraumatic. Normocephalic. EYES: Pupils equal and round and reactive. . No scleral icterus. No injection or drainage. Fundi not examined. ENT: Hearing grossly normal. Nose without bleeding or purulent drainage. NECK: Trachea midline. Supple, nontender. No palpable thyroid enlargement or nodularity. CARDIOVASCULAR: Regular rate and rhythm without murmurs, gallops, or rubs. No JVD. Peripheral pulses symmetric. RESPIRATORY/CHEST: Breath sounds diminished bilaterally with scattered rale; expiratory wheeze. Shortness of breath up served with conversation; Intermittent accessory muscle use noted. GASTROINTESTINAL: Abdomen soft, non-tender, nondistended. No hepato-splenomegaly , or palpable masses. No guarding. Bowel sounds present. GENITOURINARY: Without palpable bladder distension. Barnett catheter in place. MUSCULOSKELETAL: Trace edema BLE LYMPHATICS: No palpable cervical or supraclavicular adenopathy. NEUROLOGICAL: More alert today, answering questions, follows commands. PSYCHIATRIC: Ongoing anxiety. . . . Diagnostic Tests Laboratory Laboratory Tests Test 11/30/16 12/01/16 15:42 03:16 Urine Color LIGHT-RED (YELLW/STRAW) Urine Turbidity HAZY (CLEAR) Urine pH 7.0 (5.0-8.5) Urine Specific [place] 1.019 (1.002-1.035) Urine Protein 30 mg/dL (NEG-TRACE) Urine Glucose (UA) NEG mg/dL (NEG) Urine Ketones NEG mg/dL (NEG) Urine Occult Blood LARGE (NEG) Urine Nitrite NEG (NEG) Urine Bilirubin NEG (NEG) Urine Urobilinogen LESS THAN 2.0 MG/DL (LESS THAN 2.0) Urine Leukocyte Esterase LARGE (NEG) Urine RBC /hpf (0-3) Urine WBC /hpf (0-5) Urine WBC Clumps MANY (NONE) Urine Transitional Epithelial 2 /hpf (NONE) Cells Urine Amorphous Sediment RARE Urine Bacteria MOD /hpf (NONE) Microscopic Urinalysis Comment CATH-CULTURE IND White Blood Count 6.4 TH/MM3 (4.0-11.0) Red Blood Count 3.41 MIL/MM3 (4.00-5.30) Hemoglobin 10.0 GM/DL (11.6-15.3) Hematocrit 30.3 % (35.0-46.0) Mean Corpuscular Volume 89.0 FL (80.0-100.0) Mean Corpuscular Hemoglobin 29.5 PG (27.0-34.0) Mean Corpuscular Hemoglobin 33.1 % Concent (32.0-36.0) Red Cell Distribution Width 18.3 % (11.6-17.2) Platelet Count 161 TH/MM3 (150-450) Mean Platelet Volume 8.3 FL (7.0-11.0) Neutrophils (%) (Auto) 90.9 % (16.0-70.0) Lymphocytes (%) (Auto) 5.8 % (9.0-44.0) Monocytes (%) (Auto) 3.1 % (0.0-8.0) Eosinophils (%) (Auto) 0.1 % (0.0-4.0) Basophils (%) (Auto) 0.1 % (0.0-2.0) Neutrophils # (Auto) 5.8 TH/MM3 (1.8-7.7) Lymphocytes # (Auto) 0.4 TH/MM3 (1.0-4.8) Monocytes # (Auto) 0.2 TH/MM3 (0-0.9) Eosinophils # (Auto) 0.0 TH/MM3 (0-0.4) Basophils # (Auto) 0.0 TH/MM3 (0-0.2) CBC Comment DIFF FINAL Differential Comment Sodium Level 139 MEQ/L (136-145) Potassium Level 4.7 MEQ/L (3.5-5.1) Chloride Level 104 MEQ/L (98-107) Carbon Dioxide Level 30.0 MEQ/L (21.0-32.0) Anion Gap 5 MEQ/L (5-15) Blood Urea Nitrogen 23 MG/DL (7-18) Creatinine 0.72 MG/DL (0.50-1.00) Estimat Glomerular Filtration 80 ML/MIN (>89) Rate Random Glucose 133 MG/DL (74-106) Calcium Level 8.9 MG/DL (8.5-10.1) Phosphorus Level 2.3 MG/DL (2.5-4.9) Magnesium Level 2.6 MG/DL (1.5-2.5) Total Bilirubin 0.6 MG/DL (0.2-1.0) Aspartate Amino Transf 50 U/L (15-37) (AST/SGOT) Alanine Aminotransferase 60 U/L (10-53) (ALT/SGPT) Alkaline Phosphatase 42 U/L (45-117) Troponin I 0.07 NG/ML (0.02-0.05) Total Protein 5.9 GM/DL (6.4-8.2) Albumin 2.8 GM/DL (3.4-5.0) Result Diagram: 12/01/16 0316 12/01/16 0316 Microbiology Microbiology Date/Time Procedure Status Source Growth 11/30/16 15:42 Urine Culture - Preliminary Resulted Urine Clean Catch Group D Enterococcus Procedures 11/26/2016: Intubation 11/28/2016: Extubation . Assessment and Plan Disease Oriented Problem List: (1) COPD (chronic obstructive pulmonary disease) (2) HTN (hypertension) (3) Hypothyroidism (4) Depression with anxiety (5) Chronic Renal Failure / insufficiency, unspec (6) CHF (congestive heart failure) (7) CAD (coronary artery disease) (8) Supplemental oxygen dependent (9) DVT prophylaxis (10) Atrial fibrillation (11) Chronic pain (12) History of IN (myocardial infarction) (13) Diverticulosis Symptom Scale: (1) Chronic pain Comment: Morphine 2 mg IV push every 3 hours as needed for pain rated 6/10 . (2) SOB (shortness of breath) Comment: Breath sounds diminished bilaterally with scattered rales; expiratory wheezing; dyspnea with conversation; intermittent accessory muscle use noted. Follow-up chest x-ray on 12/01/2016 showing no significant change, right lung remains almost completely opacified. . (3) Anxiety Comment: Patient has underlying history of anxiety, currently exacerbated secondary to shortness of breath. Orders for lorazepam 1 mg IV push every 6 hours as needed for anxiety; 24-hour dosing requirements = 1mg x 3 Pertinent Non-Medical Issues Psychosocial:Per EMR and patient interview, Ms. Tillman is originally from [place]. She had 4 sisters and brothers. Patient states she has lost 3 family members to suicide, her mother, her brother and a niece. Patient quit going to school after ninth grade. 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 She moved to [place] approximately 48 years ago with her before they . Patient was for approximately 19 years, together they had one son ( Larry Tillman), who lives locally. 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 Patient states she currently lives independently at home, however documentation states patient is living in a nursing facility. Spiritual: Adventism adeline Legal: Health care surrogate form completed 03/16/16, designating the patient's son (Larry) as the HCS. Ethical issues impacting care: No ethical issues impacting care at this time. . Important Contacts Larry Tillman, son: [phone] . Prognosis Ms. Tillman is a 71 year old female who is familiar to palliative care team. She has a long-standing history of COPD on continuous supplemental oxygen 2L via nasal cannula at home with multiple comorbid conditions. The patient has been hospitalized approximately 12 times past 12 months. In February, the patient reported having increased difficulty caring for herself secondary to weakness and fatigue. She reported dyspnea with minimal exertion, stating she could only walk 10-15 feet independently before becoming short of breath. Patient was lethargic on exam s/p receiving lorazepam. Spoke with patient's son , Ruben, via telephone. He indicates the patient was living alone until her last hospitalization in October, and has been residing at a SNF for rehabilitation since that time. Given patient's advanced age, decline in functional status and multiple hospitalizations within the past year-her overall prognosis is poor. Patient is appropriate for hospice services when/if medical treatment goals become . Code Status: Full Code Plan * FULL CODE * Decision-making: Patient's son, Larry Tillman, is the designated health care surrogate decision maker. * Goals: CODE STATUS preference and end-of-life care/have been ongoing during prior admissions. Patient has previously verbalized aggressive goals and did not want to consider transitioning to comfort focus care/hospice. Goals remain aggressive at this time. * Discussed medical treatment goals and end-of-life care issues with both patient and patient's son (via telephone). Both continue to verbalize aggressive goals. Patient stating she plans to return to the SNF for ongoing rehabilitation after discharge, hoping to return to her home in the future ( where she was living independently prior to her most recent hospitalization in ). * Symptom managementdyspnea: Breath sounds diminished bilaterally with scattered rales; expiratory wheezing; dyspnea with conversation; intermittent accessory muscle use noted. Follow-up chest x-ray on 12/01/2016 showing no significant change, right lung remains almost completely opacified. * Symptom managementanxiety: Patient has underlying history of anxiety, currently exacerbated secondary to shortness of breath. Patient is currently on Seroquel 50 mg PO 2 times daily; additionally PRN orders for both Lorazepam and Alprazolam every 6 hours PRN. Recommendation to discontinue either alprazolam or lorazepam. * Symptom managementpain: Patient has a history of chronic back pain. Showing no nonverbal signs or symptoms of pain on exam. Morphine 2 mg IV push every 3 hours as needed for pain rated 6/10 * Patient's son is verbalizing concerns that multiple medication changes are being made during this hospitalization and requests that changes in the patient' s medication regime be limited. He states when the patient was last discharged from [facility] in 10/2016, she was placed in a SNF and the messed up her medications. The patient's son says he transferred her to [facility], and they had just adjusted her medications before she was admitted. * Palliative care will continue to follow this patient throughout his hospitalization to establish trust, assist with symptom management and clarification of medical treatment goals. . Attestation To help prompt me to consider important information that might be impacting today's encounter and assessment, information from prior notes written by myself or my colleagues may have been "brought forward" into today's note. My signature on this note, however, is an attestation that I personally performed the exam, history, and/or decision-making noted today, and, unless otherwise indicated, the interactions with patient, family, and staff as well as the review of records all occurred today. I also attest that the listed assessment and stated plan reflect my best clinical judgment today based on the combination of historical information, prior notes, and today's exam/ interactions. When time spent is documented, it refers only to time spent today by the signer, or if indicated, combined time spent today by collaborating physician/nurse practitioner. . Donna Raines December 02, 2016 12:25
--- NOTE | 2016-12-02 12:56 | HHI.PR ---
Subjective Remarks awake, oriented x 2 " I want to get better" anxious no cp no sob no cough Has been compliant, taking medications. wants to go to rehab then to rehab no family at [facility] (Sherron Mota) Objective Objective Results - Vital Signs Date Time Temp Pulse Resp B/P Pulse Ox O2 Delivery O2 Flow Rate FiO2 12/02/16 12:00 72 12/02/16 10:00 78 12/02/16 08:00 98.2 83 18 164/69 98 12/02/16 08:00 83 12/02/16 07:14 100 Nasal Cannula 4.00 12/02/16 07:00 98 Nasal Cannula 3.00 12/02/16 06:00 73 12/02/16 04:00 73 12/02/16 04:00 98.1 73 12 145/63 98 12/02/16 02:00 73 12/02/16 00:00 87 12/02/16 00:00 97.9 87 25 160/76 98 12/01/16 22:00 85 12/01/16 20:00 98.1 90 34 160/73 94 12/01/16 19:43 100 Nasal Cannula 3.00 12/01/16 19:00 98 Nasal Cannula 3.00 12/01/16 18:00 90 12/01/16 16:00 98 12/01/16 16:00 98.0 110 20 148/80 98 12/01/16 15:23 99 Nasal Cannula 3.00 12/01/16 15:00 96 I/O 12/01/16 12/01/16 12/01/16 12/02/16 12/02/16 12/02/16 07:00 15:00 23:00 07:00 15:00 23:00 Intake Total 611 ml 1142 ml 757 ml 510 ml 120 ml Output Total 325 ml 400 ml 550 ml Balance 286 ml 742 ml 757 ml 510 ml -430 ml Intake Oral 360 ml 660 ml 480 ml 240 ml 120 ml IV Total 251 ml 482 ml 277 ml 270 ml Output Urine Total 325 ml 400 ml 550 ml # Voids 5 1 # Bowel Movements 1 1 0 1 (Sherron Mota) Result Diagram: 12/01/166 12/01/16315 Imaging Last Impressions Chest X-Ray 11/26/16 013 Signed Impressions: Service Date/Time: Saturday, November 26, 2016 01:52 - CONCLUSION: Stable examination of the chest compared to the prior studies with near complete opacification of the right hemithorax. The left lung remains grossly clear. 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 SKIN: No rashes, ecchymoses or lesions. Cool and dry. HEAD: Atraumatic. Normocephalic. No temporal or scalp tenderness. EYES: Pupils pinpoint, sluggish. No scleral icterus. No injection or drainage. ENT: Nose without bleeding, purulent drainage or septal hematoma. Throat without erythema, tonsillar hypertrophy or exudate. Uvula midline. Airway patent. NECK: Trachea midline. No JVD or lymphadenopathy. Supple, nontender, no meningeal signs. CARDIOVASCULAR: Regular rate and rhythm without murmurs, gallops, or rubs. RESPIRATORY: Diminished GASTROINTESTINAL: Abdomen soft, non-tender, nondistended. No hepato-splenomegaly , or palpable masses. No guarding. MUSCULOSKELETAL: Extremities without clubbing, cyanosis, or edema. No joint tenderness, effusion, or edema noted. No calf tenderness. Negative Homans sign bilaterally. NEUROLOGICAL:awake, oriented x 2-3, no focal deficits. (Sherron Mota) Urinary Catheter: Yes Luong insert reason: ICU Pt Getting Diuretics (Sherron Mota) Vascular Central Line Catheter: No (Sherron Mota) A/P Diagnosis: (1) Respiratory failure (2) NSTEMI (non-ST elevated myocardial infarction) (3) COPD (chronic obstructive pulmonary disease) (4) Atrial fibrillation (5) Chronic kidney disease (6) Hypothyroidism (7) Depression with anxiety (8) HTN (hypertension) (9) History of ME (myocardial infarction) (10) CAD (coronary artery disease) Assessment and Plan 71-year-old female with history of COPD oxygen dependent, CAD, afib, hx lung cancer. Pt. patient presented to the emergency room with shortness of breath, initially put on BiPAP. Patient decompensated requiring mechanical ventilation. 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 Negative for malignancy -Critical care has been consulted, input is appreciated. Signed off. Pt. extubated 11/28 Continue with DuoNeb's, oxygen -off steroids -Continue empiric antibiotics and follow cultures Dr. Connelly's input appreciated -improving slowly. Elevated trop, non-STEMI secondary to cardiac demand -continue with home meds Chronic A. fib, stable Continue with Lopressor 25 mg by mouth 3 times a day Continue with Xarelto Hypertension Continue home medications Depression and anxiety -Continue home and he came Chronic kidney disease stage III, Continue to monitor Avoid nephrotoxic agents -stable Constipated -add Miralax -continue other bowel regimen C/O heartburn -Add Pepcid 20 mg PO daily UTI luong has been dc'd -UA/UC + Enterococcus faecalis -DC Levaquin -Macrodantin 100 mg by mouth twice a day. Patient will multiple allergies. Continue with Xarelto for DVT prophylaxis Pepcid for GI prophylaxis Appreciate palliative care input, goals remain aggressive. Attempted to call son to give update, no answer Labs in am Waiting to transfer out of ICU. CM consulted for SNF placement, possible discharge 1-2 days. D/W RN D/W Dr. Caputo This patient was seen by myself and Dr. 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 pt dw rn [facility] help (Alistair Caputo MD) Problem Qualifiers (1) Respiratory failure: Qualified Code: J96.21 - Acute on chronic respiratory failure with hypoxia and hypercapnia (2) Atrial fibrillation: Qualified Code: I48.2 - Chronic atrial fibrillation (3) Chronic kidney disease: Qualified Code: N18.3 - Stage 3 chronic kidney disease (4) Hypothyroidism: Qualified Code: E03.9 - Hypothyroidism, unspecified type (5) HTN (hypertension): Qualified Code: I10 - Essential hypertension (6) CAD (coronary artery disease): Qualified Code: I25.118 - Coronary artery disease involving [place] coronary artery of [place] heart with other form of angina pectoris Sherron Mota December 02, 2016 12:56 Alistair Caputo MD December 02, 2016 16:34
[2016-12-02] MEDS: POLYETHYLENE GLYCOL 17 GM PKG PO SCH (13:00)
--- NOTE | 2016-12-02 18:06 | HHI.PR ---
Subjective Remarks Alert and doing better On a N/C 3 L. Good output. No chest pains. Objective Vital Signs Date Time Temp Pulse Resp B/P Pulse Ox O2 Delivery O2 Flow Rate FiO2 12/02/16 16:00 76 12/02/16 16:00 98.6 76 26 137/63 92 12/02/16 14:00 70 12/02/16 13:34 100 40 12/02/16 12:00 98.2 72 13 138/65 100 12/02/16 12:00 72 12/02/16 10:00 78 12/02/16 08:00 98.2 83 18 164/69 98 12/02/16 08:00 83 12/02/16 07:14 100 Nasal Cannula 4.00 12/02/16 07:00 98 Nasal Cannula 3.00 12/02/16 06:00 73 12/02/16 04:00 73 12/02/16 04:00 98.1 73 12 145/63 98 12/02/16 02:00 73 12/02/16 00:00 87 12/02/16 00:00 97.9 87 25 160/76 98 12/01/16 22:00 85 12/01/16 20:00 98.1 90 34 160/73 94 12/01/16 19:43 100 Nasal Cannula 3.00 12/01/16 19:00 98 Nasal Cannula 3.00 I/O 12/01/16 12/01/16 12/01/16 12/02/16 12/02/16 12/02/16 07:00 15:00 23:00 07:00 15:00 23:00 Intake Total 611 ml 1142 ml 757 ml 510 ml 1000 ml Output Total 325 ml 400 ml 900 ml Balance 286 ml 742 ml 757 ml 510 ml 100 ml Intake Oral 360 ml 660 ml 480 ml 240 ml 1000 ml IV Total 251 ml 482 ml 277 ml 270 ml Output Urine Total 325 ml 400 ml 900 ml # Voids 5 1 # Bowel Movements 1 1 0 1 Result Diagram: 12/01/1631512/01/16315 Objective Remarks GENERAL: This is elderly moderately obese white female . HEAD, EYES, EARS, NOSE, THROAT: Head normocephalic. The pupils are reactive. The sclerae clear. Tongue is moist. NECK: The neck is supple without venous distention. No thyromegaly or lymphadenopathy. CHEST: Decreased breath sounds over the right lung field. The left chest has good breath sounds with wheezes. HEART: The heart sounds are regular. S1 and S2. No murmur. No S3. ABDOMEN: Abdomen is soft and protuberant without masses. No organomegaly or tenderness. The bowel sounds are active. EXTREMITIES: 1 + edema. Peripheral pulses are well-felt. NEUROLOGIC: Reflexes are 1+. The patient is awake SKIN: No lesions are observed. Assessment and Plan Assessment and Plan IMPRESSION: 1. Acute on chronic respiratory failure. 2. Severe COPD with acute exacerbation. 3. Chronic right lung opacification with atelectasis. 4. 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 5. Atrial fibrillation. 6. Obstructive pneumonia. Plan : 1. O2 3 L N/C 2. Cont Nebs qid Duoneb 3. Add lasix 20 mg daily. 4. D/C antibiotics, Azactam/Levaquin 5. CBC, BMP 6. Cont Anticoagulants. Wandy Preciado MD December 02, 2016 18:06
[2016-12-02] MEDS: ALPRAZolam 0.25 MG TAB PO SCH (18:07)
[2016-12-02] MEDS: FAMOTIDINE 20 MG TAB PO SCH (21:12)
[2016-12-02] MEDS: LORazepam 2 MG/ML VIAL IV PUSH PRN (22:40)
[2016-12-03] VITALS (12 sets, daily range): BP systolic 120–154; BP diastolic 58–78; PULSE 72–87; RESP 13–19; TEMP 98.2–99.1; O2SAT 94–100
[2016-12-03] MEDS: RESP: ALBUTEROL 2.5 MG/IPRATROPIUM 0.5 MG NEB (SCH) NEB ×3 (03:12→11:48)
[2016-12-03 04:27] LABS: HEMATOCRIT 27.9 % (35.0-46.0); MEAN CELL VOLUME 89.3 FL (80.0-100.0); MEAN CORPUSCULAR HEMOGLOBIN 29.6 PG (27.0-34.0); MEAN CORPUSCULAR HGB CONC 33.2 % (32.0-36.0); PLATELET COUNT 158 TH/MM3 (150-450); RED BLOOD COUNT 3.13 MIL/MM3 (4.00-5.30); RED CELL DISTRIBUTION WIDTH 17.7 % (11.6-17.2); REVIEW FLAG FINAL; WHITE BLOOD COUNT 6.8 TH/MM3 (4.0-11.0)
[2016-12-03 04:47] LABS: BICARBONATE 28.3 MEQ/L (21.0-32.0); INDIRECT BILIRUBIN 0.3 MG/DL (0.0-0.8); TOTAL BILIRUBIN ADULT 0.5 MG/DL (0.2-1.0)
[2016-12-03] MEDS: ALPRAZolam 0.25 MG TAB PO SCH ×5 (06:00→23:54)
[2016-12-03] MEDS: LEVOTHYROXINE SODIUM 50 MCG TAB PO SCH (06:00)
[2016-12-03] MEDS: CHLORHEXIDINE 0.12% (ORAL KIT) 15 ML CUP MT SCH ×2 (08:00→19:38)
[2016-12-03] MEDS: TIOTROPIUM BROMIDE 18 MCG INH INH SCH (09:00)
[2016-12-03] MEDS: BUDESONIDE-FORMOTEROL 160/4.5 MCG INHALER INH SCH ×2 (09:00→19:43)
[2016-12-03] MEDS ORDERED: NITROFURANTOIN MONOHYD MACROCR 100 MG CAP PO SCH (09:00)
[2016-12-03] MEDS: POTASSIUM CHLORIDE 20 MEQ CONTROLLED RELEASE TAB PO SCH (09:18)
[2016-12-03] MEDS: QUEtiapine FUMARATE 25 MG TAB PO SCH ×2 (09:18→19:43)
[2016-12-03] MEDS: FUROSEMIDE 20 MG TAB PO SCH (09:19)
[2016-12-03] MEDS: METOPROLOL TARTRATE 25 MG TAB PO SCH ×4 (09:19→23:54)
[2016-12-03] MEDS: LIPASE/PROTEASE/AMYLASE (24,000/76,000/120,000) CAP PO SCH ×3 (09:19→18:19)
[2016-12-03] MEDS: ASPIRIN 81 MG CHEW TAB CHEW SCH (09:19)
[2016-12-03] MEDS: SODIUM CHLORIDE 0.9% FLUSH 10 ML FLUSH IV FLUSH SCH ×2 (09:19→19:43)
[2016-12-03] MEDS: RIVAROXABAN 20 MG TAB PO SCH (09:19)
[2016-12-03] MEDS: POLYETHYLENE GLYCOL 17 GM PKG PO SCH (09:20)
--- NOTE | 2016-12-03 09:41 | HHI.PR ---
Subjective Remarks anxious overnight, received Ativan initially refused meds, then she took ok no cp some cough and wheezing wants to go up to floor no fever Objective Objective Results - Vital Signs Date Time Temp Pulse Resp B/P Pulse Ox O2 Delivery O2 Flow Rate FiO2 12/03/16 08:00 98.3 74 14 120/58 97 12/03/16 06:00 77 12/03/16 04:00 98.5 74 15 125/58 97 12/03/16 04:00 74 12/03/16 02:00 74 12/03/16 00:00 74 12/03/16 00:00 98.3 74 19 129/61 98 12/02/16 22:00 94 12/02/16 20:00 80 12/02/16 20:00 98.1 80 25 154/68 99 12/02/16 19:20 97 Nasal Cannula 4.00 12/02/16 19:00 96 Nasal Cannula 3.00 12/02/16 18:00 80 12/02/16 16:00 76 12/02/16 16:00 98.6 76 26 137/63 92 12/02/16 14:00 70 12/02/16 13:34 100 40 12/02/16 12:00 98.2 72 13 138/65 100 12/02/16 12:00 72 12/02/16 10:00 78 I/O 12/02/16 12/02/16 12/02/16 12/03/16 12/03/16 12/03/16 06:59 14:59 22:59 06:59 14:59 22:59 Intake Total 510 ml 1000 ml 733 ml 195 ml 250 ml Output Total 900 ml 425 ml 0 ml 700 ml Balance 510 ml 100 ml 308 ml 195 ml -450 ml Intake Oral 240 ml 1000 ml 480 ml 60 ml 250 ml IV Total 270 ml 253 ml 135 ml Output Urine Total 900 ml 425 ml 0 ml 700 ml # Voids 1 1 # Bowel Movements 0 1 0 0 Result Diagram: 12/03/16 0353 12/03/16 0353 Imaging Last Impressions Chest X-Ray 11/26/16 0137 Signed Impressions: Service Date/Time: Saturday, November 26, 2016 01:52 - CONCLUSION: Stable examination of the chest compared to the prior studies with near complete opacification of the right hemithorax. The left lung remains grossly clear. Arie J. Siragusa , MD Other Results Laboratory Tests Test 12/03/16 03:53 White Blood Count 6.8 Red Blood Count 3.13 Hemoglobin 9.3 Hematocrit 27.9 Mean Corpuscular Volume 89.3 Mean Corpuscular Hemoglobin 29.6 Mean Corpuscular Hemoglobin 33.2 Concent Red Cell Distribution Width 17.7 Platelet Count 158 Mean Platelet Volume 7.8 Sodium Level 139 Potassium Level 4.0 Chloride Level 104 Carbon Dioxide Level 28.3 Anion Gap 7 Blood Urea Nitrogen 15 Creatinine 0.64 Estimat Glomerular Filtration 92 Rate Random Glucose 100 Calcium Level 8.6 Total Bilirubin 0.5 Direct Bilirubin 0.2 Indirect Bilirubin 0.3 Aspartate Amino Transf 23 (AST/SGOT) Alanine Aminotransferase 43 (ALT/SGPT) Alkaline Phosphatase 37 Total Protein 5.3 Albumin 2.5 Date/Time Procedure Status Source Growth 11/30/16 15:42 Urine Culture - Final Complete Urine Clean Catch Enterococcus Faecalis ROS General: Other (poor historian ) Pulmonary: Cough, SOB, Wheezing Psych: Anxiety Physical Exam Physical Exam GENERAL: This is an elderly female no acute distress. SKIN: No rashes, ecchymoses or lesions. Cool and dry. HEAD: Atraumatic. Normocephalic. No temporal or scalp tenderness. EYES: Pupils pinpoint, sluggish. No scleral icterus. No injection or drainage. ENT: Nose without bleeding, purulent drainage or septal hematoma. Throat without erythema, tonsillar hypertrophy or exudate. Uvula midline. Airway patent. NECK: Trachea midline. No JVD or lymphadenopathy. Supple, nontender, no meningeal signs. CARDIOVASCULAR: Regular rate and rhythm without murmurs, gallops, or rubs. RESPIRATORY: exp. wheezing, ronchi GASTROINTESTINAL: Abdomen soft, non-tender, nondistended. No hepato-splenomegaly , or palpable masses. No guarding. MUSCULOSKELETAL: Extremities without clubbing, cyanosis, or edema. No joint tenderness, effusion, or edema noted. No calf tenderness. Negative Homans sign bilaterally. NEUROLOGICAL:awake, oriented x 2-3, no focal deficits. Urinary Catheter: No Vascular Central Line Catheter: No A/P Diagnosis: (1) Respiratory failure (2) NSTEMI (non-ST elevated myocardial infarction) (3) COPD (chronic obstructive pulmonary disease) (4) Atrial fibrillation (5) Chronic kidney disease (6) Hypothyroidism (7) Depression with anxiety (8) HTN (hypertension) (9) History of [place] (myocardial infarction) (10) CAD (coronary artery disease) Assessment and Plan 71-year-old female with history of COPD oxygen dependent, CAD, afib, hx lung cancer. Pt. patient presented to the emergency room with shortness of breath, initially put on BiPAP. Patient decompensated requiring mechanical ventilation. 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 Negative for malignancy -Critical care has been consulted, input is appreciated. Signed off. Pt. extubated 11/28 Continue with DuoNeb's, oxygen -off steroids -Continue empiric antibiotics and follow cultures Dr. Connelly's input appreciated -improving slowly. Elevated trop, non-STEMI secondary to cardiac demand -continue with home meds Chronic A. fib, stable Continue with Lopressor 25 mg by mouth 3 times a day Continue with Xarelto Hypertension Continue home medications Depression and anxiety -Continue home -remains anxious, continue Xanax. Chronic kidney disease stage III, Continue to monitor Avoid nephrotoxic agents -stable Constipated-had BM -continue Miralax -continue other bowel regimen heartburn -continue Pepcid 20 mg PO daily UTI luong has been dc'd -UA/UC + Enterococcus faecalis -DC Levaquin -hold off abx, no fever Continue with Xarelto for DVT prophylaxis Pepcid for GI prophylaxis Appreciate palliative care input, goals remain aggressive. Waiting to transfer out of ICU. poss dc tomorrow after pulm clears. stable, improving. D/W RN D/W Dr. Caputo D/W Pt. This patient was seen by myself and Dr. Caputo, this note is written on his behalf Problem Qualifiers (1) Respiratory failure: Qualified Code: J96.21 - Acute on chronic respiratory failure with hypoxia and hypercapnia (2) Atrial fibrillation: Qualified Code: I48.2 - Chronic atrial fibrillation (3) Chronic kidney disease: Qualified Code: N18.3 - Stage 3 chronic kidney disease (4) Hypothyroidism: Qualified Code: E03.9 - Hypothyroidism, unspecified type (5) HTN (hypertension): Qualified Code: I10 - Essential hypertension (6) CAD (coronary artery disease): Qualified Code: I25.118 - Coronary artery disease involving muscogee coronary artery of muscogee heart with other form of angina pectoris Sherron Mota [facility] December 03, 2016 09:41
[2016-12-03] MEDS ORDERED: BISACODYL 10 MG SUPP RECTAL PRN (10:45)
--- NOTE | 2016-12-03 11:46 | HHI.HCPN ---
Reason for visit a. To assist with evaluation and management of symptoms including: Dyspnea, anxiety, chronic pain, constipation b. To assist medical decision maker(s) with: better understanding of current medical conditions; weighing benefits/burdens of medical treatment options; making medical treatment decisions. . Subjective/Interval History Ms. Tillman is a 71 year old female currently admitted with acute COPD exacerbation. 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 Patient has been hospitalized 12 times in the past year. Follow-up visit for symptom management and clarification of medical treatment goals. Patient on 3L via nasal cannula, oxygen saturation 97%. She denies shortness of breath on exam. Follow-up chest x-ray on 12/01/2016 showed no significant change, right lung remains almost completely opacified. Continued No recent lab work available. Urine culture from 11/30/2016: + Enterococcus. Receiving IV Levofloxacin, Azactam and Flagyl. Patient complains of constipation. Order placed for daily PRN Dulcolax suppository-positive effect. LBM: 12/03/16 Goals remain aggressive and will likely not changed. Patient stating she plans to return to the SNF for ongoing rehabilitation after discharge, hoping to return to her home in the future (where she was living independently prior to her most recent hospitalization in 10/2016). Per CM notes, [facility] is not reaccepting patient after discharge. Discussed with CM, Maria Elena, who continues to work on placement. . Advance Directives Health Care Surrogate: Copy in medical record Advance Directive Specifics Date completed: 03/16/2016 . Health Care Surrogate(s): Patient has designated her son, Larry Tillman, as the health care surrogate decision maker. . Objective Vital Signs Date Time Temp Pulse Resp B/P Pulse Ox O2 Delivery O2 Flow Rate FiO2 12/03/16 10:00 87 12/03/16 08:00 74 12/03/16 08:00 98.3 74 14 120/58 97 12/03/16 07:00 97 Nasal Cannula 3.00 12/03/16 06:00 77 12/03/16 04:00 98.5 74 15 125/58 97 12/03/16 04:00 74 12/03/16 02:00 74 12/03/16 00:00 74 12/03/16 00:00 98.3 74 19 129/61 98 12/02/16 22:00 94 12/02/16 20:00 80 12/02/16 20:00 98.1 80 25 154/68 99 12/02/16 19:20 97 Nasal Cannula 4.00 12/02/16 19:00 96 Nasal Cannula 3.00 12/02/16 18:00 80 12/02/16 16:00 76 12/02/16 16:00 98.6 76 26 137/63 92 12/02/16 14:00 70 12/02/16 13:34 100 40 12/02/16 12:00 98.2 72 13 138/65 100 12/02/16 12:00 72 Intake & Output 12/03/16 12/03/16 06:59 18:59 Intake Total 928 ml 250 ml Output Total 425 ml 700 ml Balance 503 ml -450 ml Intake Oral 540 ml 250 ml IV Total 388 ml Output Urine Total 425 ml 700 ml # Voids 1 # Bowel Movements 0 Physical Exam CONSTITUTIONAL/GENERAL: This is an adequately nourished, elderly female patient in no apparent distress. TUBES/LINES/DRAINS: Barnett catheter, NC, PIV x 4 SKIN: No jaundice, rashes, or lesions. Ecchymoses on upper extremities. No wounds seen anteriorly. Skin temperature appropriate. Not diaphoretic. HEAD: Atraumatic. Normocephalic. EYES: Pupils equal and round and reactive. . No scleral icterus. No injection or drainage. Fundi not examined. ENT: Hearing grossly normal. Nose without bleeding or purulent drainage. NECK: Trachea midline. Supple, nontender. No palpable thyroid enlargement or nodularity. CARDIOVASCULAR: Regular rate and rhythm without murmurs, gallops, or rubs. No JVD. Peripheral pulses symmetric. RESPIRATORY/CHEST: Breath sounds diminished bilaterally with scattered rale; expiratory wheeze. Intermittent accessory muscle use noted. GASTROINTESTINAL: Abdomen soft, non-tender, nondistended. No guarding. Bowel sounds present. GENITOURINARY: Without palpable bladder distension. Barnett catheter in place. MUSCULOSKELETAL: Trace edema BLE LYMPHATICS: No palpable cervical or supraclavicular adenopathy. NEUROLOGICAL: More alert today, answering questions, follows commands. PSYCHIATRIC: Ongoing anxiety. . . . Diagnostic Tests Laboratory Laboratory Tests Test 11/30/16 12/01/16 12/03/16 15:42 03:16 03:53 Urine Color LIGHT-RED (YELLW/STRAW) Urine Turbidity HAZY (CLEAR) Urine pH 7.0 (5.0-8.5) Urine Specific Rover 1.019 (1.002-1.035) Urine Protein 30 mg/dL (NEG-TRACE) Urine Glucose (UA) NEG mg/dL (NEG) Urine Ketones NEG mg/dL (NEG) Urine Occult Blood LARGE (NEG) Urine Nitrite NEG (NEG) Urine Bilirubin NEG (NEG) Urine Urobilinogen LESS THAN 2.0 MG/DL (LESS THAN 2.0) Urine Leukocyte Esterase LARGE (NEG) Urine RBC /hpf (0-3) Urine WBC /hpf (0-5) Urine WBC Clumps MANY (NONE) Urine Transitional Epithelial 2 /hpf (NONE) Cells Urine Amorphous Sediment RARE Urine Bacteria MOD /hpf (NONE) Microscopic Urinalysis Comment CATH-CULTURE IND White Blood Count 6.4 TH/MM3 6.8 TH/MM3 (4.0-11.0) (4.0-11.0) Red Blood Count 3.41 MIL/MM3 3.13 MIL/MM3 (4.00-5.30) (4.00-5.30) Hemoglobin 10.0 GM/DL 9.3 GM/DL (11.6-15.3) (11.6-15.3) Hematocrit 30.3 % 27.9 % (35.0-46.0) (35.0-46.0) Mean Corpuscular Volume 89.0 FL 89.3 FL (80.0-100.0) (80.0-100.0) Mean Corpuscular Hemoglobin 29.5 PG 29.6 PG (27.0-34.0) (27.0-34.0) Mean Corpuscular Hemoglobin 33.1 % 33.2 % Concent (32.0-36.0) (32.0-36.0) Red Cell Distribution Width 18.3 % 17.7 % (11.6-17.2) (11.6-17.2) Platelet Count 161 TH/MM3 158 TH/MM3 (150-450) (150-450) Mean Platelet Volume 8.3 FL 7.8 FL (7.0-11.0) (7.0-11.0) Neutrophils (%) (Auto) 90.9 % (16.0-70.0) Lymphocytes (%) (Auto) 5.8 % (9.0-44.0) Monocytes (%) (Auto) 3.1 % (0.0-8.0) Eosinophils (%) (Auto) 0.1 % (0.0-4.0) Basophils (%) (Auto) 0.1 % (0.0-2.0) Neutrophils # (Auto) 5.8 TH/MM3 (1.8-7.7) Lymphocytes # (Auto) 0.4 TH/MM3 (1.0-4.8) Monocytes # (Auto) 0.2 TH/MM3 (0-0.9) Eosinophils # (Auto) 0.0 TH/MM3 (0-0.4) Basophils # (Auto) 0.0 TH/MM3 (0-0.2) CBC Comment DIFF FINAL Differential Comment Sodium Level 139 MEQ/L 139 MEQ/L (136-145) (136-145) Potassium Level 4.7 MEQ/L 4.0 MEQ/L (3.5-5.1) (3.5-5.1) Chloride Level 104 MEQ/L 104 MEQ/L (98-107) (98-107) Carbon Dioxide Level 30.0 MEQ/L 28.3 MEQ/L (21.0-32.0) (21.0-32.0) Anion Gap 5 MEQ/L (5-15) 7 MEQ/L (5-15) Blood Urea Nitrogen 23 MG/DL (7-18) 15 MG/DL (7-18) Creatinine 0.72 MG/DL 0.64 MG/DL (0.50-1.00) (0.50-1.00) Estimat Glomerular Filtration 80 ML/MIN (>89) 92 ML/MIN (>89) Rate Random Glucose 133 MG/DL 100 MG/DL (74-106) (74-106) Calcium Level 8.9 MG/DL 8.6 MG/DL (8.5-10.1) (8.5-10.1) Phosphorus Level 2.3 MG/DL (2.5-4.9) Magnesium Level 2.6 MG/DL (1.5-2.5) Total Bilirubin 0.6 MG/DL 0.5 MG/DL (0.2-1.0) (0.2-1.0) Aspartate Amino Transf 50 U/L (15-37) 23 U/L (15-37) (AST/SGOT) Alanine Aminotransferase 60 U/L (10-53) 43 U/L (10-53) (ALT/SGPT) Alkaline Phosphatase 42 U/L (45-117) 37 U/L (45-117) Troponin I 0.07 NG/ML (0.02-0.05) Total Protein 5.9 GM/DL 5.3 GM/DL (6.4-8.2) (6.4-8.2) Albumin 2.8 GM/DL 2.5 GM/DL (3.4-5.0) (3.4-5.0) Direct Bilirubin 0.2 MG/DL (0.0-0.2) Indirect Bilirubin 0.3 MG/DL (0.0-0.8) . Result Diagram: 12/03/16 0353 12/03/16 0353 Microbiology Microbiology Date/Time Procedure Status Source Growth 11/30/16 15:42 Urine Culture - Final Complete Urine Clean Catch Enterococcus Faecalis . Procedures 11/26/2016: Intubation 11/28/2016: Extubation . Assessment and Plan Disease Oriented Problem List: (1) COPD (chronic obstructive pulmonary disease) (2) HTN (hypertension) (3) Hypothyroidism (4) Depression with anxiety (5) Chronic Renal Failure / insufficiency, unspec (6) CHF (congestive heart failure) (7) CAD (coronary artery disease) (8) Supplemental oxygen dependent (9) DVT prophylaxis (10) Atrial fibrillation (11) Chronic pain (12) History of LA (myocardial infarction) (13) Diverticulosis Symptom Scale: (1) Chronic pain Comment: Morphine 2 mg IV push every 3 hours as needed for pain rated 6/10 . (2) SOB (shortness of breath) Comment: Breath sounds diminished bilaterally with scattered rales; expiratory wheezing; dyspnea with conversation; intermittent accessory muscle use noted. Follow-up chest x-ray on 12/01/2016 showing no significant change, right lung remains almost completely opacified. . (3) Anxiety Comment: Patient has underlying history of anxiety, currently exacerbated secondary to shortness of breath. Orders for lorazepam 1 mg IV push every 6 hours as needed for anxiety; 24-hour dosing requirements = 1mg x 3 (4) Constipation Comment: Patient complains of constipation. Order placed for daily PRN Dulcolax suppository-positive effect. LBM: 12/03/16 . Pertinent Non-Medical Issues Psychosocial:Per EMR and patient interview, Ms. Tillman is originally from [place]. She had 4 sisters and brothers. Patient states she has lost 3 family members to suicide, her mother, her brother and a niece. Patient quit going to school after ninth grade. 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 She moved to [place] approximately 48 years ago with her before they . Patient was for approximately 19 years, together they had one son ( Larry Tillman), who lives locally. 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 Patient states she currently lives independently at home, however documentation states patient is living in a nursing facility. Spiritual: Jewish adeline Legal: Health care surrogate form completed 03/16/16, designating the patient's son (Larry) as the HCS. Ethical issues impacting care: No ethical issues impacting care at this time. . Important Contacts Larry Tillman, son: [phone] . Prognosis Ms. Tillman is a 71 year old female who is familiar to palliative care team. She has a long-standing history of COPD on continuous supplemental oxygen 2L via nasal cannula at home with multiple comorbid conditions. The patient has been hospitalized approximately 12 times past 12 months. In February, the patient reported having increased difficulty caring for herself secondary to weakness and fatigue. She reported dyspnea with minimal exertion, stating she could only walk 10-15 feet independently before becoming short of breath. Patient was lethargic on exam s/p receiving lorazepam. Spoke with patient's son , Ruben, via telephone. He indicates the patient was living alone until her last hospitalization in October, and has been residing at a SNF for rehabilitation since that time. Given patient's advanced age, decline in functional status and multiple hospitalizations within the past year-her overall prognosis is poor. Patient is appropriate for hospice services when/if medical treatment goals become . Code Status: Full Code Plan * FULL CODE * Decision-making: Patient's son, Larry Tillman, is the designated health care surrogate decision maker. * Goals: CODE STATUS preference and end-of-life care/have been ongoing during prior admissions. Patient has previously verbalized aggressive goals and did not want to consider transitioning to comfort focus care/hospice. Goals remain aggressive at this time. * Discussed medical treatment goals and end-of-life care issues with both patient and patient's son (via telephone). Both continue to verbalize aggressive goals. Patient stating she plans to return to the SNF for ongoing rehabilitation after discharge, hoping to return to her home in the future ( where she was living independently prior to her most recent hospitalization in ). * Symptom managementdyspnea: Breath sounds diminished bilaterally with scattered rales; expiratory wheezing; dyspnea with conversation; intermittent accessory muscle use noted. Follow-up chest x-ray on 12/01/2016 showing no significant change, right lung remains almost completely opacified. * Symptom management- constipation: Patient complains of constipation. Order placed for daily PRN Dulcolax suppository-positive effect. LBM: 12/03/16 * Symptom managementanxiety: Patient has underlying history of anxiety, currently exacerbated secondary to shortness of breath. Patient is currently on Seroquel 50 mg PO 2 times daily; additionally PRN orders for both Lorazepam and Alprazolam every 6 hours PRN. Recommendation to discontinue either alprazolam or lorazepam. * Symptom managementpain: Patient has a history of chronic back pain. Showing no nonverbal signs or symptoms of pain on exam. Morphine 2 mg IV push every 3 hours as needed for pain rated 6/10 * Patient's son is verbalizing concerns that multiple medication changes are being made during this hospitalization and requests that changes in the patient' s medication regime be limited. He states when the patient was last discharged from [facility] in 10/2016, she was placed in a SNF and the messed up her medications. The patient's son says he transferred her to [facility], and they had just adjusted her medications before she was admitted. * Palliative care will continue to follow this patient throughout his hospitalization to establish trust, assist with symptom management and clarification of medical treatment goals. . Donna Raines December 03, 2016 11:46
[2016-12-03] MEDS: FAMOTIDINE 20 MG TAB PO SCH (19:43)
--- NOTE | 2016-12-03 19:57 | HHI.PR ---
Subjective Remarks Alert and feels good. On a N/C 3 L. .C/O weakness No chest pains. Objective Vital Signs Date Time Temp Pulse Resp B/P Pulse Ox O2 Delivery O2 Flow Rate FiO2 12/03/16 18:25 99.1 72 18 146/78 98 12/03/16 16:00 74 12/03/16 16:00 98.2 73 15 154/69 100 12/03/16 14:00 73 12/03/16 12:00 98.2 74 13 131/63 94 12/03/16 12:00 74 12/03/16 10:00 87 12/03/16 08:00 74 12/03/16 08:00 98.3 74 14 120/58 97 12/03/16 07:00 97 Nasal Cannula 3.00 12/03/16 06:00 77 12/03/16 04:00 98.5 74 15 125/58 97 12/03/16 04:00 74 12/03/16 02:00 74 12/03/16 00:00 74 12/03/16 00:00 98.3 74 19 129/61 98 12/02/16 22:00 94 12/02/16 20:00 80 12/02/16 20:00 98.1 80 25 154/68 99 I/O 12/02/16 12/02/16 12/02/16 12/03/16 12/03/16 12/03/16 07:00 15:00 23:00 07:00 15:00 23:00 Intake Total 510 ml 1000 ml 733 ml 195 ml 450 ml 50 ml Output Total 900 ml 425 ml 0 ml 1050 ml 600 ml Balance 510 ml 100 ml 308 ml 195 ml -600 ml -550 ml Intake Oral 240 ml 1000 ml 480 ml 60 ml 450 ml 50 ml IV Total 270 ml 253 ml 135 ml 0 ml Output Urine Total 900 ml 425 ml 0 ml 1050 ml 600 ml # Voids 1 2 1 # Bowel Movements 0 1 0 0 1 Result Diagram: 12/03/16 0353 12/03/16 0353 Objective Remarks GENERAL: This is elderly moderately obese white female . HEAD, EYES, EARS, NOSE, THROAT: Head normocephalic. The pupils are reactive. The sclerae clear. Tongue is moist. NECK: The neck is supple without venous distention. No thyromegaly or lymphadenopathy. CHEST: Decreased breath sounds over the right lung field. The left chest has good breath sounds with occ wheezes. HEART: The heart sounds are regular. S1 and S2. No murmur. No S3. ABDOMEN: Abdomen is soft and protuberant without masses. No organomegaly or tenderness. The bowel sounds are active. EXTREMITIES: 1 + edema. Peripheral pulses are well-felt. NEUROLOGIC: Reflexes are 1+. The patient is awake SKIN: No lesions are observed. Assessment and Plan Assessment and Plan IMPRESSION: 1. Acute on chronic respiratory failure. 2. Severe COPD with acute exacerbation. 3. Chronic right lung opacification with atelectasis. 4. 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 5. Atrial fibrillation. 6. Obstructive pneumonia. Plan : 1. O2 3 L N/C 2. Cont Nebs qid Duoneb 3. Cont lasix 20 mg daily. 4. IS qid at Bedside 5. Transfer to tele 6. Cont Anticoagulants. Wandy Preciado MD December 03, 2016 19:57
[2016-12-03] MEDS: RESP: ALBUTEROL 2.5 MG/3 ML NEB (PRN) NEB (19:58)
[2016-12-04] VITALS (9 sets, daily range): BP systolic 117–147; BP diastolic 62–87; PULSE 69–83; RESP 16–19; TEMP 98.2–99.5; O2SAT 94–99
[2016-12-04] MEDS: LEVOTHYROXINE SODIUM 50 MCG TAB PO SCH (05:38)
[2016-12-04] MEDS: ALPRAZolam 0.25 MG TAB PO SCH ×3 (05:38→16:17)
[2016-12-04] MEDS: RESP: ALBUTEROL 2.5 MG/3 ML NEB (PRN) NEB ×3 (06:25→19:59)
[2016-12-04] MEDS: CHLORHEXIDINE 0.12% (ORAL KIT) 15 ML CUP MT SCH ×2 (08:00→19:59)
[2016-12-04] MEDS: QUEtiapine FUMARATE 25 MG TAB PO SCH ×2 (08:52→19:58)
[2016-12-04] MEDS: FUROSEMIDE 20 MG TAB PO SCH (08:52)
[2016-12-04] MEDS: ASPIRIN 81 MG CHEW TAB CHEW SCH (08:53)
[2016-12-04] MEDS: LIPASE/PROTEASE/AMYLASE (24,000/76,000/120,000) CAP PO SCH ×3 (08:53→16:17)
[2016-12-04] MEDS: POTASSIUM CHLORIDE 20 MEQ CONTROLLED RELEASE TAB PO SCH (08:53)
[2016-12-04] MEDS: METOPROLOL TARTRATE 25 MG TAB PO SCH ×2 (08:53→16:17)
[2016-12-04] MEDS: TIOTROPIUM BROMIDE 18 MCG INH INH SCH (08:58)
[2016-12-04] MEDS: BUDESONIDE-FORMOTEROL 160/4.5 MCG INHALER INH SCH ×2 (08:58→19:59)
[2016-12-04] MEDS: SODIUM CHLORIDE 0.9% FLUSH 10 ML FLUSH IV FLUSH SCH ×2 (08:58→19:59)
[2016-12-04] MEDS: POLYETHYLENE GLYCOL 17 GM PKG PO SCH (08:59)
[2016-12-04] MEDS: RIVAROXABAN 20 MG TAB PO SCH (08:59)
--- NOTE | 2016-12-04 11:00 | HHI.PR ---
Subjective Remarks calm, awakes to voice no cp no sob at this time agreeable with rehab no fever forgetful wants to get up to walk Objective Objective Results - Vital Signs Date Time Temp Pulse Resp B/P Pulse Ox O2 Delivery O2 Flow Rate FiO2 12/04/16 08:00 98.5 72 17 133/71 99 12/04/16 04:15 99.5 80 16 117/62 98 12/04/16 00:16 98.3 83 17 147/64 98 12/03/16 20:10 98.5 74 16 123/64 94 12/03/16 19:58 94 Nasal Cannula 3.00 12/03/16 18:25 99.1 72 18 146/78 98 12/03/16 16:00 74 12/03/16 16:00 98.2 73 15 154/69 100 12/03/16 14:00 73 12/03/16 12:00 98.2 74 13 131/63 94 12/03/16 12:00 74 I/O 12/03/16 12/03/16 12/03/16 12/04/16 12/04/16 12/04/16 07:00 15:00 23:00 07:00 15:00 23:00 Intake Total 195 ml 450 ml 290 ml 240 ml Output Total 0 ml 1050 ml 600 ml Balance 195 ml -600 ml -310 ml 240 ml Intake Oral 60 ml 450 ml 290 ml 240 ml IV Total 135 ml 0 ml Output Urine Total 0 ml 1050 ml 600 ml # Voids 2 2 2 # Bowel Movements 0 1 1 1 Result Diagram: 12/03/16 0353 12/03/16 0353 Imaging Last Impressions Chest X-Ray 11/26/16 0137 Signed Impressions: Service Date/Time: Saturday, November 26, 2016 01:52 - CONCLUSION: Stable examination of the chest compared to the prior studies with near complete opacification of the right hemithorax. The left lung remains grossly clear. Arie Olvera MD Other Results Date/Time Procedure Status Source Growth 11/30/16 15:42 Urine Culture - Final Complete Urine Clean Catch Enterococcus Faecalis ROS General: Other (poor historian ) HEENT: No: Sore Throat, Dysphagia Cardiac: No: Chest Pain, Edema, Palpitations Pulmonary: SOB GI: No: Abdominal Pain, BM, Diarrhea, N/V /CLAIMS COLLECTOR: No: Dysuria, Urgency Neuro/MS: No: Lightheaded, Confusion Psych: Anxiety Skin: No: Itching, Rash Physical Exam Physical Exam GENERAL: This is an elderly female no acute distress. SKIN: No rashes, ecchymoses or lesions. Cool and dry. HEAD: Atraumatic. Normocephalic. No temporal or scalp tenderness. EYES: Pupils pinpoint, sluggish. No scleral icterus. No injection or drainage. ENT: Nose without bleeding, purulent drainage or septal hematoma. Throat without erythema, tonsillar hypertrophy or exudate. Uvula midline. Airway patent. NECK: Trachea midline. No JVD or lymphadenopathy. Supple, nontender, no meningeal signs. CARDIOVASCULAR: Regular rate and rhythm without murmurs, gallops, or rubs. RESPIRATORY: diminished, faint wheezes GASTROINTESTINAL: Abdomen soft, non-tender, nondistended. No hepato-splenomegaly , or palpable masses. No guarding. MUSCULOSKELETAL: Extremities without clubbing, cyanosis, or edema. No joint tenderness, effusion, or edema noted. No calf tenderness. Negative Homans sign bilaterally. NEUROLOGICAL:awakes to voice, oriented x 2-3, no focal deficits. Urinary Catheter: No Vascular Central Line Catheter: No A/P Diagnosis: (1) Respiratory failure (2) NSTEMI (non-ST elevated myocardial infarction) (3) COPD (chronic obstructive pulmonary disease) (4) Atrial fibrillation (5) Chronic kidney disease (6) Hypothyroidism (7) Depression with anxiety (8) HTN (hypertension) (9) History of [place] (myocardial infarction) (10) CAD (coronary artery disease) Assessment and Plan 71-year-old female with history of COPD oxygen dependent, CAD, afib, hx lung cancer. Pt. patient presented to the emergency room with shortness of breath, initially put on BiPAP. Patient decompensated requiring mechanical ventilation. 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 Negative for malignancy -Critical care has been consulted, input is appreciated. Signed off. Pt. extubated 11/28 Continue with DuoNeb's, oxygen -off steroids -DC abx Dr. Connelly's input appreciated -improving, ok for dc Elevated trop, non-STEMI secondary to cardiac demand -continue with home meds Chronic A. fib, stable Continue with Lopressor 25 mg by mouth 3 times a day Continue with Xarelto Hypertension Continue home medications Depression and anxiety -Continue home -remains anxious, continue Xanax. Chronic kidney disease stage III, Continue to monitor Avoid nephrotoxic agents -stable Constipated-had BM -continue Miralax -continue other bowel regimen heartburn -continue Pepcid 20 mg PO daily UTI luong has been dc'd -UA/UC + Enterococcus faecalis -DC Levaquin -hold off abx, no fever -afebrile, stable PT eval and treat, OOB daily Continue with Xarelto for DVT prophylaxis Pepcid for GI prophylaxis Appreciate palliative care input, goals remain aggressive. stable for discharge. Pt. likely to continue having exacerbations and may come back. Discussed again poss hospice but she is not sure. Pt. wants whatever son wants. Son wants pt. in rehab CM working on SNF placement, pending. Pt. declined by [facility] Discharge when arrangements make F/U pulmonary, PCP Diet -heart healthy Activity as tolerated D/W RN D/W Dr. Caputo D/W Pt. D/W CM This patient was seen by myself and Dr. Caputo, this note is written on his behalf Discharge Planning 45 Problem Qualifiers (1) Respiratory failure: Qualified Code: J96.21 - Acute on chronic respiratory failure with hypoxia and hypercapnia (2) Atrial fibrillation: Qualified Code: I48.2 - Chronic atrial fibrillation (3) Chronic kidney disease: Qualified Code: N18.3 - Stage 3 chronic kidney disease (4) Hypothyroidism: Qualified Code: E03.9 - Hypothyroidism, unspecified type (5) HTN (hypertension): Qualified Code: I10 - Essential hypertension (6) CAD (coronary artery disease): Qualified Code: I25.118 - Coronary artery disease involving [place] coronary artery of [place] heart with other form of angina pectoris Sherron Mota December 04, 2016 11:00
--- NOTE | 2016-12-04 11:05 | HHI.DCPOC ---
Discharge Care Plan Diagnosis: (1) Acute respiratory failure with hypoxia and hypercapnia (2) SOB (shortness of breath) (3) CHF (congestive heart failure) Your Health Problems Are: Chest Pain Cough Fluid/Lung Overload Shortness of Breath Goals to Promote Your Health * To prevent worsening of your condition and complications * To maintain your health at the optimal level Directions to Meet Your Goals Take your medications as prescribed Follow your dietary instruction Follow activity as directed Keep your appointments as scheduled Take your immunizations and boosters as scheduled If your symptoms worsen call your PCP, if no PCP go to Urgent Care Center or Emergency Room Smoking is Dangerous to Your Health. Avoid second hand smoke Call the 24-hour hour crisis hotline for domestic abuse at Sherron Mota [facility] December 04, 2016 11:05
[2016-12-04] MEDS ORDERED: ALPR.5 PO (12:54)
[2016-12-04] MEDS ORDERED: HYDR-3516 PO (12:54)
[2016-12-04] MEDS: FAMOTIDINE 20 MG TAB PO SCH (19:58)
[2016-12-05] VITALS (8 sets, daily range): BP systolic 143–166; BP diastolic 73–87; PULSE 72–82; RESP 17–18; TEMP 96.6–98.7; O2SAT 93–99
[2016-12-05] MEDS: RESP: ALBUTEROL 2.5 MG/3 ML NEB (PRN) NEB ×4 (02:16→22:23)
[2016-12-05] MEDS: LEVOTHYROXINE SODIUM 50 MCG TAB PO SCH (05:28)
[2016-12-05] MEDS: ALPRAZolam 0.25 MG TAB PO SCH ×4 (05:29→17:49)
[2016-12-05] MEDS: FUROSEMIDE 20 MG TAB PO SCH (07:57)
[2016-12-05] MEDS: QUEtiapine FUMARATE 25 MG TAB PO SCH ×2 (07:57→20:39)
[2016-12-05] MEDS: LIPASE/PROTEASE/AMYLASE (24,000/76,000/120,000) CAP PO SCH ×3 (07:57→17:49)
[2016-12-05] MEDS: RIVAROXABAN 20 MG TAB PO SCH (07:57)
[2016-12-05] MEDS: METOPROLOL TARTRATE 25 MG TAB PO SCH ×3 (07:58→17:50)
[2016-12-05] MEDS: POTASSIUM CHLORIDE 20 MEQ CONTROLLED RELEASE TAB PO SCH (07:58)
[2016-12-05] MEDS: TIOTROPIUM BROMIDE 18 MCG INH INH SCH (07:59)
[2016-12-05] MEDS: BUDESONIDE-FORMOTEROL 160/4.5 MCG INHALER INH SCH ×2 (07:59→20:45)
[2016-12-05] MEDS: CHLORHEXIDINE 0.12% (ORAL KIT) 15 ML CUP MT SCH ×2 (08:00→20:00)
[2016-12-05] MEDS: ASPIRIN 81 MG CHEW TAB CHEW SCH (08:00)
[2016-12-05] MEDS: SODIUM CHLORIDE 0.9% FLUSH 10 ML FLUSH IV FLUSH SCH ×2 (08:01→20:39)
[2016-12-05] MEDS: POLYETHYLENE GLYCOL 17 GM PKG PO SCH (08:05)
--- NOTE | 2016-12-05 11:31 | HHI.PR ---
Subjective Remarks sitting on edge of bed awake, oriented x 3 pt. tearful and anxious "I feel so weak, I'm tired of fighting this" states she doesn't know what to do, "my son is trying to rule my life" not sure that she wants to pursue rehab discussed hospice, she is not sure but willing to speak to palliative care nurse tomorrow "I feel depressed" no suicidal ideation Objective Objective Results - Vital Signs Date Time Temp Pulse Resp B/P Pulse Ox O2 Delivery O2 Flow Rate FiO2 12/05/16 07:59 98.4 73 18 166/87 95 12/05/16 07:51 93 Nasal Cannula 2.00 12/05/16 04:30 98.3 72 18 146/74 96 12/05/16 00:00 96.6 73 18 143/76 95 12/04/16 20:05 98.4 69 19 132/85 98 12/04/16 20:03 95 Nasal Cannula 2.00 12/04/16 17:06 78 12/04/16 16:00 98.6 72 18 132/66 94 12/04/16 12:00 98.2 70 16 139/87 94 I/O 12/04/16 12/04/16 12/04/16 12/05/16 12/05/16 12/05/16 07:00 15:00 23:00 07:00 15:00 23:00 Intake Total 240 ml 980 ml 600 ml 480 ml Output Total 1200 ml Balance 240 ml -220 ml 600 ml 480 ml Intake Oral 240 ml 980 ml 600 ml 480 ml Output Urine Total 1200 ml # Voids 2 3 3 2 # Bowel Movements 1 1 0 Result Diagram: 12/03/16 0353 12/03/16 0353 Imaging Last Impressions Chest X-Ray 11/26/16 0137 Signed Impressions: Service Date/Time: Saturday, November 26, 2016 01:52 - CONCLUSION: Stable examination of the chest compared to the prior studies with near complete opacification of the right hemithorax. The left lung remains grossly clear. Arie Olvera MD Other Results Date/Time Procedure Status Source Growth 11/30/16 15:42 Urine Culture - Final Complete Urine Clean Catch Enterococcus Faecalis ROS General: Weakness Pulmonary: SOB (improved ) Psych: Anxiety, Depression Physical Exam Physical Exam GENERAL: This is an elderly female no acute distress. SKIN: No rashes, ecchymoses or lesions. Cool and dry. HEAD: Atraumatic. Normocephalic. No temporal or scalp tenderness. EYES: Pupils pinpoint, sluggish. No scleral icterus. No injection or drainage. ENT: Nose without bleeding, purulent drainage or septal hematoma. Throat without erythema, tonsillar hypertrophy or exudate. Uvula midline. Airway patent. NECK: Trachea midline. No JVD or lymphadenopathy. Supple, nontender, no meningeal signs. CARDIOVASCULAR: Regular rate and rhythm without murmurs, gallops, or rubs. RESPIRATORY: diminished, faint wheezes GASTROINTESTINAL: Abdomen soft, non-tender, nondistended. No hepato-splenomegaly , or palpable masses. No guarding. MUSCULOSKELETAL: Extremities without clubbing, cyanosis, or edema. No joint tenderness, effusion, or edema noted. No calf tenderness. Negative Homans sign bilaterally. NEUROLOGICAL:awakes to voice, oriented x 3, much more improved. Anxious and tearful. Urinary Catheter: No Vascular Central Line Catheter: No A/P Diagnosis: (1) Respiratory failure (2) NSTEMI (non-ST elevated myocardial infarction) (3) COPD (chronic obstructive pulmonary disease) (4) Atrial fibrillation (5) Chronic kidney disease (6) Hypothyroidism (7) Depression with anxiety (8) HTN (hypertension) (9) History of [place] (myocardial infarction) (10) CAD (coronary artery disease) Assessment and Plan 71-year-old female with history of COPD oxygen dependent, CAD, afib, hx lung cancer. Pt. patient presented to the emergency room with shortness of breath, initially put on BiPAP. Patient decompensated requiring mechanical ventilation. 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 Negative for malignancy -Critical care has been consulted, input is appreciated. Signed off. Pt. extubated 11/28 Continue with DuoNeb's, oxygen -off steroids -DC abx Dr. Connelly's input appreciated -improving, ok for dc Elevated trop, non-STEMI secondary to cardiac demand -continue with home meds Chronic A. fib, stable Continue with Lopressor 25 mg by mouth 3 times a day Continue with Xarelto Hypertension Continue home medications Depression and anxiety. Pt. was on multiple meds Buspar, Seroquel, Cymbalta, Mirtazapine, Lexapro, Ativan and Clonazepam -resume Cymbalta today. -continue Xanax PRN -Continue Seroquel 50 mg PO BID -psych consult, more depressed, tearful, very anxious Chronic kidney disease stage III, Continue to monitor Avoid nephrotoxic agents -stable Constipated-had BM -continue Miralax -continue other bowel regimen heartburn -continue Pepcid 20 mg PO daily UTI luong has been dc'd -UA/UC + Enterococcus faecalis -DC Levaquin -hold off abx, no fever -afebrile, stable PT eval and treat, OOB daily Continue with Xarelto for DVT prophylaxis Pepcid for GI prophylaxis Appreciate palliative care input, goals remain aggressive. Will have palliative care talk to pt. tomorrow. Pt. seems very overwhelmed with making choices and doesn't want to continue pursuing aggressive care however she is concerned about son's wishes as well. clinically stable for discharge. Placement is challenging due to behavior issues pt. has severe anxiety, on multiple meds at SNF. Son was concerned that was making her confused and had recently pulled her out of one SNF into another. will obtain psych evaluation for recommendations. CM working on SNF placement, pending. Pt. declined by [facility] Discharge when arrangements make F/U pulmonary, PCP Diet -heart healthy Activity as tolerated D/W RN D/W Dr. Caputo D/W Pt. D/W CM This patient was seen by myself and Dr. Caputo, this note is written on his behalf Discharge Planning 45 Problem Qualifiers (1) Respiratory failure: Qualified Code: J96.21 - Acute on chronic respiratory failure with hypoxia and hypercapnia (2) Atrial fibrillation: Qualified Code: I48.2 - Chronic atrial fibrillation (3) Chronic kidney disease: Qualified Code: N18.3 - Stage 3 chronic kidney disease (4) Hypothyroidism: Qualified Code: E03.9 - Hypothyroidism, unspecified type (5) HTN (hypertension): Qualified Code: I10 - Essential hypertension (6) CAD (coronary artery disease): Qualified Code: I25.118 - Coronary artery disease involving [place] coronary artery of [place] heart with other form of angina pectoris Sherron Mota December 05, 2016 11:31
[2016-12-05] MEDS: DULoxetine HCl DR 30 MG CAP PO SCH (11:48)
[2016-12-05] MEDS: FAMOTIDINE 20 MG TAB PO SCH (20:39)
[2016-12-06] VITALS (9 sets, daily range): BP systolic 108–176; BP diastolic 68–84; PULSE 60–76; RESP 16–20; TEMP 96–98.5; O2SAT 95–100
[2016-12-06] MEDS: METOPROLOL TARTRATE 25 MG TAB PO SCH ×3 (00:46→16:27)
[2016-12-06] MEDS: ALPRAZolam 0.25 MG TAB PO SCH ×3 (00:46→12:57)
[2016-12-06] MEDS: RESP: ALBUTEROL 2.5 MG/3 ML NEB (PRN) NEB ×4 (01:00→19:07)
[2016-12-06] MEDS: LEVOTHYROXINE SODIUM 50 MCG TAB PO SCH (05:59)
[2016-12-06] MEDS: CHLORHEXIDINE 0.12% (ORAL KIT) 15 ML CUP MT SCH ×2 (09:30→20:00)
[2016-12-06] MEDS: POTASSIUM CHLORIDE 20 MEQ CONTROLLED RELEASE TAB PO SCH (09:31)
[2016-12-06] MEDS: FUROSEMIDE 20 MG TAB PO SCH (09:31)
[2016-12-06] MEDS: RIVAROXABAN 20 MG TAB PO SCH (09:31)
[2016-12-06] MEDS: LIPASE/PROTEASE/AMYLASE (24,000/76,000/120,000) CAP PO SCH ×3 (09:32→17:55)
[2016-12-06] MEDS: ASPIRIN 81 MG CHEW TAB CHEW SCH (09:32)
[2016-12-06] MEDS: POLYETHYLENE GLYCOL 17 GM PKG PO SCH (09:32)
[2016-12-06] MEDS: DULoxetine HCl DR 30 MG CAP PO SCH (09:32)
[2016-12-06] MEDS: QUEtiapine FUMARATE 25 MG TAB PO SCH ×2 (09:32→20:15)
[2016-12-06] MEDS: TIOTROPIUM BROMIDE 18 MCG INH INH SCH (09:33)
[2016-12-06] MEDS: SODIUM CHLORIDE 0.9% FLUSH 10 ML FLUSH IV FLUSH SCH ×2 (09:33→20:17)
[2016-12-06] MEDS: BUDESONIDE-FORMOTEROL 160/4.5 MCG INHALER INH SCH ×2 (09:33→20:17)
--- NOTE | 2016-12-06 14:08 | HHI.PR ---
Subjective Remarks more calm, has been talking to slot floorperson "I'm tired of fighting" "I'm weak" doesn't want us to call son and discuss dc planning, does not want him to make decisions for her sob improved no cp tearful at times, wants company, requesting that I sit with her Objective Objective Results - Vital Signs Date Time Temp Pulse Resp B/P Pulse Ox O2 Delivery O2 Flow Rate FiO2 12/06/16 07:58 96.0 69 18 176/79 99 12/06/16 07:32 99 Nasal Cannula 2.00 12/06/16 04:40 96.9 69 16 134/69 99 12/06/16 02:40 Nasal Cannula 3.00 Humidified 12/06/16 00:35 96.7 76 17 164/84 99 12/05/16 20:00 98.7 73 18 155/73 94 12/05/16 19:52 73 12/05/16 16:00 97.9 72 18 153/81 93 I/O 12/05/16 12/05/16 12/05/16 12/06/16 12/06/16 12/06/16 06:59 14:59 22:59 06:59 14:59 22:59 Intake Total 1080 ml 720 ml 240 ml Balance 1080 ml 720 ml 240 ml Intake Oral 1080 ml 720 ml 240 ml # Voids 5 3 2 # Bowel Movements 0 0 0 Result Diagram: 12/03/16 0353 12/03/16 0353 Imaging Last Impressions Chest X-Ray 11/26/16 0137 Signed Impressions: Service Date/Time: Saturday, November 26, 2016 01:52 - CONCLUSION: Stable examination of the chest compared to the prior studies with near complete opacification of the right hemithorax. The left lung remains grossly clear. Arie Olvera MD ROS General: Weakness Pulmonary: Cough (improved ), Wheezing (less wheezing ) Psych: Anxiety, Depression Physical Exam Physical Exam GENERAL: This is an elderly female no acute distress. SKIN: No rashes, ecchymoses or lesions. Cool and dry. HEAD: Atraumatic. Normocephalic. No temporal or scalp tenderness. EYES: Pupils pinpoint, sluggish. No scleral icterus. No injection or drainage. ENT: Nose without bleeding, purulent drainage or septal hematoma. Throat without erythema, tonsillar hypertrophy or exudate. Uvula midline. Airway patent. NECK: Trachea midline. No JVD or lymphadenopathy. Supple, nontender, no meningeal signs. CARDIOVASCULAR: Regular rate and rhythm without murmurs, gallops, or rubs. RESPIRATORY: diminished, faint wheezes GASTROINTESTINAL: Abdomen soft, non-tender, nondistended. No hepato-splenomegaly , or palpable masses. No guarding. MUSCULOSKELETAL: Extremities without clubbing, cyanosis, or edema. No joint tenderness, effusion, or edema noted. No calf tenderness. Negative Homans sign bilaterally. NEUROLOGICAL:awakes to voice, oriented x 3, much more improved. Anxious and tearful. Urinary Catheter: No Vascular Central Line Catheter: No A/P Diagnosis: (1) Respiratory failure (2) NSTEMI (non-ST elevated myocardial infarction) (3) COPD (chronic obstructive pulmonary disease) (4) Atrial fibrillation (5) Chronic kidney disease (6) Hypothyroidism (7) Depression with anxiety (8) HTN (hypertension) (9) History of [place] (myocardial infarction) (10) CAD (coronary artery disease) Assessment and Plan 71-year-old female with history of COPD oxygen dependent, CAD, afib, hx lung cancer. Pt. patient presented to the emergency room with shortness of breath, initially put on BiPAP. Patient decompensated requiring mechanical ventilation. 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 Negative for malignancy -Critical care has been consulted, input is appreciated. Signed off. Pt. extubated 11/28 Continue with DuoNeb's, oxygen -off steroids -DC abx Dr. Connelly's input appreciated -improving, ok for dc Elevated trop, non-STEMI secondary to cardiac demand -continue with home meds Chronic A. fib, stable Continue with Lopressor 25 mg by mouth 3 times a day Continue with Xarelto Hypertension Continue home medications Depression and anxiety. Pt. was on multiple meds Buspar, Seroquel, Cymbalta, Mirtazapine, Lexapro, Ativan and Clonazepam -continue Cymbalta, inc. to 60 mg po daily per psych -continue Xanax PRN -Continue Seroquel 50 mg PO BID -appreciate psych input, medication adjustments made. Input appreciated. -pastoral care consult, input appreciated. Chronic kidney disease stage III, Continue to monitor Avoid nephrotoxic agents -stable Constipated-had BM -continue Miralax -continue other bowel regimen heartburn -continue Pepcid 20 mg PO daily UTI luong has been dc'd -UA/UC + Enterococcus faecalis -DC Levaquin -hold off abx, no fever -afebrile, stable PT eval and treat, OOB daily Continue with Xarelto for DVT prophylaxis Pepcid for GI prophylaxis Appreciate palliative care input. D/W Brenda WHITE, she will meet and talk to patient. d/w pt. at length, she seems more amenable to discussing hospice. She is adamant that we don't speak to her son about her wishes. She verbalizes being "tired" and wants to be comfortable. clinically stable for discharge. SNF placement pending Discharge to SNF, poss. with hospice. F/U pulmonary, PCP Diet -heart healthy Activity as tolerated D/W RN D/W Dr. De La Rosa D/W Pt. D/W CM This patient was seen by myself and Dr. De La Rosa, this note is written on his behalf Discharge Planning 45 Problem Qualifiers (1) Respiratory failure: Qualified Code: J96.21 - Acute on chronic respiratory failure with hypoxia and hypercapnia (2) Atrial fibrillation: Qualified Code: I48.2 - Chronic atrial fibrillation (3) Chronic kidney disease: Qualified Code: N18.3 - Stage 3 chronic kidney disease (4) Hypothyroidism: Qualified Code: E03.9 - Hypothyroidism, unspecified type (5) HTN (hypertension): Qualified Code: I10 - Essential hypertension (6) CAD (coronary artery disease): Qualified Code: I25.118 - Coronary artery disease involving [place] coronary artery of [place] heart with other form of angina pectoris Sherron Mota December 06, 2016 14:08
--- NOTE | 2016-12-06 14:41 | PD.CONS ---
Provisional Diagnosis Admission Date November 26, 2016 at 04:42 [place] I. Adjustment disorder with mixed anxiety and depressed mood [place] II. Deferred [place] III. COPD History of Present Illness Service Psychiatry Consult Requested By Primary Care Physician Unknown HPI The patient is a 70 years old woman, domiciled alone in [place] , , retired, on SSD, with psychiatric history of anxiety and depression , 1 previous hospitalization, she is on outpatient psychiatric care, she sees monthly and nurse practitioner, no previous suicide attempts, she is on multiple psychotropic, Seroquel, Remeron, BuSpar, Ativan, clonazepam, Lexapro, extensive history of COPD, obesity, lung cancer, A. fib, renal mass, hospitalized due to respiratory failure and COPD exacerbation. Consulted to psychiatry due to anxiety. On psychiatric evaluation today patient is found calm, cooperative and pleasant. Patient stated that she is feeling better because "I am breathing better now". Patient states that as she is breathing better her anxiety have also improved. However, she has episodes of acute anxiety during the day, she describes them as severe, episodic, and sudden. She reports mood swings, she feels sad and tearful on and off secondary to his underlying medical conditions and her lengthy hospitalization. But she denies anhedonia, she denies helplessness, she denies hopelessness, she denies suicidal or homicidal ideation, she denies visual and auditory hallucinations. Patient is fully oriented 3, no confusion, no cognitive impairment observed. Patient denies the use of drugs and alcohol. Review of Systems Constitutional: DENIES: Diaphoretic episodes, Fatigue, Fever, Weight gain, Weight loss, Chills, Dizziness, Change in appetite, Night Sweats Eyes: DENIES: Blurred vision, Diplopia, Eye inflammation, Eye pain, Vision loss , Photosensitivity, Double Vision Ears, nose, mouth, throat: DENIES: Tinnitus, Hearing loss, Vertigo, Nasal discharge, Oral lesions, Throat pain, Hoarseness, Ear Pain, Running Nose, Epistaxis, Sinus Pain, Toothache, Odynophagia Respiratory: COMPLAINS OF: Cough, Shortness of breath, DENIES: Apneas, Snoring , Wheezing, Hemoptysis, Sputum production Cardiovascular: DENIES: Chest pain, Palpitations, Syncope, Dyspnea on Exertion , PND, Lower Extremity Edema, Orthopnea, Claudication Gastrointestinal: DENIES: Abdominal pain, Black stools, Bloody stools, Constipation, Diarrhea, Nausea, Vomiting, Difficulty Swallowing, Anorexia Genitourinary: DENIES: Abnormal vaginal bleeding, Dysmenorrhea, Dyspareunia, Sexual dysfunction, Urinary frequency, Urinary incontinence, Urgency, Hematuria , Dysuria, Nocturia, Vaginal discharge Musculoskeletal: DENIES: Joint pain, Muscle aches, Stiffness, Joint Swelling, Back pain, Neck pain Integumentary: DENIES: Abnormal pigmentation, Pruritus, Rash, Nail changes, Breast masses, Breast skin changes, Nipple discharge Hematologic/lymphatic: DENIES: Bruising, Lymphadenopathy Immunologic/allergic: DENIES: Eczema, Urticaria Neurologic: DENIES: Abnormal gait, Headache, Localized weakness, Paresthesias, Seizures, Speech Problems, Tremor, Poor Balance Psychiatric: COMPLAINS OF: Anxiety, Depression, DENIES: Confusion, Mood changes, Hallucinations, Agitation, Suicidal Ideation, Homicidal Ideation, Delusions Past Family Social History Coded Allergies: Adhesives (Verified Allergy, Severe, RASK, 07/29/16) skin breakdown Calcium Channel Blockers (Verified Allergy, Severe, DIFFICULTY BREATHING, 07/29/16) Entex LA (Verified Allergy, Severe, Anaphylaxis, 07/29/16) Marcaine (Verified Allergy, Severe, DIFFICULTY BREATHING, 10/13/16) Minocin (Verified Allergy, Severe, DIFFICULTY BREATHING, 10/13/16) Nonsteroidal Anti-Inflammatory Agts (Verified Allergy, Severe, DIFFICULTY BREATHING, 10/13/16) PEANUTS (Verified Allergy, Severe, lips swelling, 10/13/16) Penicillin (Verified Allergy, Severe, DIFFICULTY BREATHING, 10/13/16) Prilosec (Verified Allergy, Severe, DIFFICULTY BREATHING, 10/13/16) Promethazine (Verified Allergy, Severe, DIFFICULTY BREATHING, 10/13/16) Sulfa (Verified Allergy, Severe, DIFFICULTY BREATHING, 10/13/16) Prednisone (Verified Allergy, Intermediate, rash and lips swell, 10/13/16) Zyrtec (Verified Allergy, Intermediate, rash, 10/13/16) Vancomycin (Verified Allergy, Mild, Flushing, 10/17/16) lips tingling Zyprexa (Verified Adverse Reaction, Severe, Severe vomiting., 10/13/16) Fluticasone (Verified Adverse Reaction, Intermediate, Rawness of the skin around the nose. Inhaled steroids do , 10/13/16) the same to her mouth. Omeprazole (Verified Adverse Reaction, Intermediate, [place] funny, 10/13/16) Zithromax (Verified Adverse Reaction, Intermediate, Says it made her jittery and it was harder to breathe. 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 Not sure would get same reaction to Injectable. Lian Huber MD. Jacob (Adverse Reaction, Severe, Caused amnesia and a fall. , 07/10/13) Active Scripts Hydrocodone-Acetaminophen 5-325 mg Tab1 Tab PO Q6H PRN (PAIN) 14 Days Ref 0 Prov:Alistair Caputo MD 12/04/16 Alprazolam (Xanax)0.5 Mg Tab0.5 Mg PO Q6H PRN (ANXIETY) 14 Days Prov:Alistair Caputo MD 12/04/16 Clonazepam (Klonopin)0.5 Mg Tab0.5 Mg PO Q12HR 14 Days Prov:Sherry De La Rosa MD 10/22/16 Quetiapine 25 Mg Tab50 Mg PO BID #60 TAB Ref 1 Prov:Sherron Mota 10/22/16 Levofloxacin (Levaquin)500 Mg Yte764 Mg PO DAILY #4 TAB Prov:Sherron Mota 10/22/16 Furosemide 20 Mg Tab20 Mg PO DAILY #30 TAB Ref 1 Prov:Sherron Mota 10/22/16 Albuterol Neb 2.5 Mg/3 Ml Neb2.5 Mg INH Q2HR NEB PRN (SOB/WHEEZING) #60 NEBULE Prov:Sherron Mota 10/22/16 Rivaroxaban (Xarelto)15 Mg Tab20 Mg PO DAILY #60 TAB Prov:Jhon Ewing MD 06/29/16 Quetiapine 25 Mg Tab25 Mg PO BID #30 TAB Prov:John Ewing MD 12/13/16 Pancrelipase (Creon)24,000-76,000-120,000 Units Cap1 Cap PO TID #90 CAP Prov:John Ewing MD 06/29/[address] (Aspir-81)81 Mg Tabdr 11/26/16 Lorazepam 1 Mg Tab1 Mg PO Q4H PRN (for severe anxiety or dyspnea) Ref 0 11/26/16 Escitalopram (Lexapro)20 Mg Tab20 Mg PO DAILY #30 TAB Ref 0 11/26/16 Quetiapine (Seroquel)50 Mg Tab50 Mg PO DAILY #30 TAB Ref 0 11/26/16 Mirtazapine 15 Mg Tab15 Mg PO HS #30 TAB Ref 0 11/26/[address] (Cymbalta DR)30 Mg Capdr30 Mg PO DAILY #30 CAP Ref 0 11/26/16 Enalapril 20 Mg Tab20 Mg PO DAILY #30 TAB Ref 0 11/26/16 Melatonin 5 Mg Tab3 Mg PO HS Ref 0 11/26/16 Buspirone 10 Mg Tab10 Mg PO TID Ref 0 11/26/16 Metoprolol Tartrate 25 Mg Tab25 Mg PO TID #60 TAB Ref 0 09/02/16 Levothyroxine 50 Mcg Tab50 Mcg PO DAILY #30 TAB Ref 0 06/17/16 Ranitidine (Zantac 150 Maximum Strength)150 Mg Sgt346 Mg PO BID 06/17/16 Nofboehs-Dzyekdxhh-Ubdsakpkvae Liq (Mylanta Liq)200-200-20 Mg/5 Ml Susp30 Ml PO Q8HR Ref 0 Take between meals or as directed. Shake well. Maximum 120 ml/24 hrs. 06/17/16 Potassium Chloride ER 10 Meq Cap10 Meq PO DAILY #30 CAP Ref 0 06/16/16 Discontinued Scripts Hydrocodone-Acetaminophen 5-325 mg Tab1 Tab PO Q6H PRN (PAIN) 14 Days Ref 0 Prov:Sherry De La Rosa MD 10/22/16 Alprazolam (Xanax)0.5 Mg Tab0.5 Mg PO Q6H PRN (ANXIETY) 14 Days Prov:Sherry De La Rosa MD 10/22/16 Current Medications Medications (Trade) Dose Ordered Sig/Lorie Route Start Time Stop Time Status Last Admin (Zofran Inj) 4 mg Q6H PRN IV 11/26/16 04:45 12/01/16 03:49 (Tylenol) 650 mg Q4H PRN PO 11/26/16 04:45 11/28/16 14:31 (NS Flush) 2 ml BID IV FLUSH 11/26/16 09:00 12/06/16 09:33 (NS Flush) 2 ml UNSCH PRN IVF 11/26/16 04:45 (Ativan Inj) 1 mg Q6H PRN IV PUSH 11/26/16 04:45 12/02/16 22:40 (Synthroid) 50 mcg DAILY@06 PO 11/26/16 09:00 12/06/16 05:59 (Creon 24-76-120) 1 cap TID PO 11/26/16 09:00 12/06/16 12:57 (SEROquel) 50 mg BID PO 11/26/16 09:00 12/06/16 09:32 (Xarelto) 20 mg DAILY PO 11/26/16 09:00 12/06/16 09:31 (Aspirin Chew) 81 mg DAILY CHEW 11/26/16 09:00 12/06/16 09:32 (Peridex 0.12% Liq) 15 ml BID@08,20 MT 11/26/16 08:00 12/04/16 08:00 (Symbicort 160-4.5 Inh) 1 puff Q12HR INH 11/29/16 09:00 12/06/16 09:33 (Spiriva Inh) 18 mcg DAILY INH 11/29/16 09:00 12/06/16 09:33 (Morphine Inj) 2 mg Q3H PRN IV PUSH 11/29/16 15:30 11/29/16 15:50 (Lopressor) 37.5 mg Q8H PO 12/01/16 08:00 12/06/16 09:32 (Pill Splitter) 1 ea UNSCH PRN OTHER 12/01/16 08:00 (Miralax) 17 gm DAILY PO 12/02/16 13:00 12/04/16 08:59 (Lasix) 20 mg DAILY PO 12/03/16 09:00 12/06/16 09:31 (KCl) 20 meq DAILY PO 12/03/16 09:00 12/06/16 09:31 (Pepcid) 20 mg HS PO 12/02/16 21:00 12/05/16 20:39 (Dulcolax Supp) 10 mg DAILY PRN RECTAL 12/03/16 10:45 (Xanax) 0.5 mg Q8HR PO 12/06/16 22:00 (Cymbalta Dr) 60 mg DAILY PO 12/07/16 09:00 UNV Family History She denies psychiatric family history Social History Patient was born in [place], lives alone in [place], she has a home health aid , who comes 3 times a week, she is unemployed, single, highest level of education is high school Physical Exam No EPS, no withdrawal, no tremors, no status, Vital Signs Vital Signs Date Time Temp Pulse Resp B/P Pulse Ox O2 Delivery O2 Flow Rate FiO2 12/06/16 12:00 96.3 74 18 149/78 100 12/06/16 07:32 Nasal Cannula 2.00 12/02/16 13:34 40 I/O 12/05/16 12/05/16 12/05/16 07:59 15:59 23:59 Intake Total 480 ml 600 ml 720 ml Balance 480 ml 600 ml 720 ml Mental Status Examination Appearance woman, age appearing, [facility], good hygiene, calm, cooperative and pleasant Speech: Unremarkable Orientation: x3 Memory: Unremarkable Thought Process: Logical, Goal Directed, Linear Language Fluent and spontaneous Fund of Knowledge Adequate for level of education Hallucination Type: None Attention and Concentration: Good Attention Remarks No attention deficit Suicidal Ideation: No Previous Suicide Attempts: No Homicidal Ideation: No Previous Homicide Attempts: No Judgment: WNL Affect: Good Mood: Appropriate Motor Activity: Abnormal gait-specify Assessment & Plan Problem List: (1) Adjustment disorder with mixed anxiety and depressed mood Assessment & Plan: On psychiatric evaluation patient reports acute anxiety and mild to moderate symptomatology of depression related with underlying decompensation of medical conditions and length of hospitalization. She denies suicidal and homicidal ideation, she denies visual and auditory hallucinations. She does not meet criteria for psychiatric hospitalization at this moment. Will increase duloxetine to 60 mg for depressive symptoms, we will reinitiate Remeron 15 mg to help with sleep at night, also restart clonazepam 0.5 mg twice a day for anxiety, alprazolam to 0.5 mg every 8 hours when necessary anxiety, continue Seroquel 50 mg twice a day for mood swings, Extensive psycho education , supportive motivation provided. We'll follow-up. ICD Code: F43.23 Assessment & Plan Estimated LOS: Kenji Live MD December 06, 2016 14:41
[2016-12-06] MEDS: clonazePAM 0.5 MG TAB PO SCH ×2 (16:27→20:14)
--- NOTE | 2016-12-06 17:48 | HHI.HCPN ---
Received phone call Sherron Mota MERCHANDISE PRESENTATION MANAGER. Patient has indicated that she is tired. She has questions about hospice and would like to consider transitioning to [facility] upon discharge. Palliative care will follow up with patient and consult hospice if indicated. . (Donna Raines) . Chart reviewed. Case discussed with palliative care ELECTRICAL SUPERINTENDENT. I have reviewed above ELECTRICAL SUPERINTENDENT note and I concur. . (Abel Fox MD) Donna Raines December 06, 2016 17:48 Abel Fox MD December 14, 2016 12:42
--- NOTE | 2016-12-06 19:04 | HHI.PR ---
Subjective Remarks Better today. On a N/C 3 L. .C/O weakness and dizziness. No chest pains. Objective Vital Signs Date Time Temp Pulse Resp B/P Pulse Ox O2 Delivery O2 Flow Rate FiO2 12/06/16 16:00 96.3 71 18 149/78 100 12/06/16 12:00 96.3 74 18 149/78 100 12/06/16 12:00 97.7 60 20 108/68 98 12/06/16 07:58 96.0 69 18 176/79 99 12/06/16 07:32 99 Nasal Cannula 2.00 12/06/16 04:40 96.9 69 16 134/69 99 12/06/16 02:40 Nasal Cannula 3.00 Humidified 12/06/16 00:35 96.7 76 17 164/84 99 12/05/16 20:00 98.7 73 18 155/73 94 12/05/16 19:52 73 I/O 12/05/16 12/05/16 12/05/16 12/06/16 12/06/16 12/06/16 07:00 15:00 23:00 07:00 15:00 23:00 Intake Total 1080 ml 720 ml 240 ml 960 ml Balance 1080 ml 720 ml 240 ml 960 ml Intake Oral 1080 ml 720 ml 240 ml 960 ml # Voids 5 3 2 3 # Bowel Movements 0 0 0 0 Result Diagram: 12/03/16 03512/03/16 0353 Objective Remarks GENERAL: This is elderly moderately obese white female . HEAD, EYES, EARS, NOSE, THROAT: Head normocephalic. The pupils are reactive. The sclerae clear. Tongue is moist. NECK: The neck is supple without venous distention. No thyromegaly or lymphadenopathy. CHEST: Decreased breath sounds over the right lung field. The left chest has good breath sounds . HEART: The heart sounds are regular. S1 and S2. No murmur. No S3. ABDOMEN: Abdomen is soft and protuberant without masses. No organomegaly or tenderness. The bowel sounds are active. EXTREMITIES: No edema. Peripheral pulses are well-felt. NEUROLOGIC: Reflexes are 1+. The patient is awake SKIN: No lesions are observed. Assessment and Plan Assessment and Plan IMPRESSION: 1. Acute on chronic respiratory failure. 2. Severe COPD with acute exacerbation. 3. Chronic right lung opacification with atelectasis. 4. 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 5. Atrial fibrillation. 6. Obstructive pneumonia. Plan : 1. O2 2 L N/C 2. Cont Nebs qid Duoneb 3. Cont lasix 20 mg daily. 4. IS qid at Bedside 5. Transfer to rehab this week 6. Cont Anticoagulants. Wandy Preciado MD December 06, 2016 19:04
[2016-12-06] MEDS: FAMOTIDINE 20 MG TAB PO SCH (20:14)
[2016-12-06] MEDS: MIRTAZAPINE 15 MG TAB PO SCH (20:14)
[2016-12-06] MEDS ORDERED: ALPRAZolam 0.5 MG TAB PO SCH (22:00)
[2016-12-07] VITALS (9 sets, daily range): BP systolic 136–160; BP diastolic 68–87; PULSE 69–104; RESP 18–20; TEMP 96.2–98.3; O2SAT 94–100
[2016-12-07] MEDS: METOPROLOL TARTRATE 25 MG TAB PO SCH ×3 (01:06→17:41)
[2016-12-07] MEDS: LEVOTHYROXINE SODIUM 50 MCG TAB PO SCH (05:40)
[2016-12-07] MEDS: LIPASE/PROTEASE/AMYLASE (24,000/76,000/120,000) CAP PO SCH ×3 (07:51→17:41)
[2016-12-07] MEDS: ASPIRIN 81 MG CHEW TAB CHEW SCH (07:51)
[2016-12-07] MEDS: FUROSEMIDE 20 MG TAB PO SCH (07:52)
[2016-12-07] MEDS: POTASSIUM CHLORIDE 20 MEQ CONTROLLED RELEASE TAB PO SCH (07:52)
[2016-12-07] MEDS: QUEtiapine FUMARATE 25 MG TAB PO SCH ×2 (07:52→19:55)
[2016-12-07] MEDS: RIVAROXABAN 20 MG TAB PO SCH (07:52)
[2016-12-07] MEDS: DULoxetine HCl DR 30 MG CAP PO SCH (07:52)
[2016-12-07] MEDS: clonazePAM 0.5 MG TAB PO SCH ×2 (07:53→19:55)
[2016-12-07] MEDS: TIOTROPIUM BROMIDE 18 MCG INH INH SCH (07:53)
[2016-12-07] MEDS: SODIUM CHLORIDE 0.9% FLUSH 10 ML FLUSH IV FLUSH SCH ×2 (07:53→19:56)
[2016-12-07] MEDS: CHLORHEXIDINE 0.12% (ORAL KIT) 15 ML CUP MT SCH ×2 (07:55→19:55)
[2016-12-07] MEDS: BUDESONIDE-FORMOTEROL 160/4.5 MCG INHALER INH SCH ×2 (07:55→19:55)
[2016-12-07] MEDS: POLYETHYLENE GLYCOL 17 GM PKG PO SCH (07:56)
--- NOTE | 2016-12-07 13:27 | HHI.HCPN ---
Reason for visit a. To assist with evaluation and management of symptoms including: Dyspnea, anxiety, chronic pain, constipation b. To assist medical decision maker(s) with: better understanding of current medical conditions; weighing benefits/burdens of medical treatment options; making medical treatment decisions. . (Donna Raines) Subjective/Interval History Ms. Tillman is a 71 year old female currently admitted with acute COPD exacerbation. PMH includes CHF, COPD, CAD s/p UT x 2, h/o esophageal stricture, h/o small cell lung cancer s/p chemotherapy and radiation in 2004, diverticulosis, atrial fibrillation, depression/anxiety, hypothyroidism and HTN. Patient has been hospitalized 12 times in the past year. Follow-up visit for symptom management and clarification of medical treatment goals. Patient on 3L via nasal cannula, oxygen saturation 100%. She denies shortness of breath on exam. Follow-up chest x-ray on 12/01/2016 showed no significant change, right lung remains almost completely opacified. No recent lab work available. Urine culture from 11/30/2016: + Enterococcus. Patient completed course of IV antibiotics. Received a phone call from Sherron Mota NP yesterday stating the patient is now verbalizing she no longer desires aggressive interventions. Patient stating, "I' m tired of fighting. I'm weak." She doesn't want us to call her son and discuss discharge planning; she does not 1 him to make decisions for her. On exam today, the patient again expresses comfort focused goals stating, " I just want someone to take care of me. My body can't do it anymore." CODE STATUS was addressed; the procedure of cardiopulmonary resuscitation including compressions ACLS medications, cardioversion and intubation/mechanical ventilation were discussed. Patient states if she should experience cardiopulmonary arrest, she does not want aggressive interventions but instead requests she be allowed to peacefully and naturally. Discussed with Sherron Mota NP, who confirms this is consistent with the conversation she had with the patient yesterday. Also spoke with case management, Elana, to discuss discharge planning. Hospice consult pending. . . (Donna Raines) Advance Directives Health Care Surrogate: Copy in medical record (Donna Raines) Advance Directive Specifics Date completed: 03/16/2016 . Health Care Surrogate(s): Patient has designated her son, Larry Tillman, as the health care surrogate decision maker. . Significant change in goals: Patient now verbalizing comfort focused goals. CODE STATUS change to NO CODE per patient, after a detailed conversation about the process of cardiopulmonary resuscitation. Hospice consult pending. Next line. (Donna Raines) Objective Vital Signs Date Time Temp Pulse Resp B/P Pulse Ox O2 Delivery O2 Flow Rate FiO2 12/07/16 08:00 97.6 104 20 160/87 96 12/07/16 07:27 72 12/07/16 07:25 Humidified 3.00 12/07/16 04:45 97.2 76 18 152/86 100 12/07/16 00:10 96.2 69 18 136/68 97 12/06/16 20:30 98.5 73 18 170/79 97 12/06/16 20:11 Nasal Cannula 3.00 Humidified 12/06/16 20:09 69 12/06/16 19:07 95 Nasal Cannula 2.00 12/06/16 16:00 96.3 71 18 149/78 100 Intake & Output 12/07/16 12/07/16 06:59 18:59 Intake Total 360 ml Balance 360 ml Intake Oral 360 ml # Voids 1 # Bowel Movements 0 . Physical Exam CONSTITUTIONAL/GENERAL: This is an adequately nourished, elderly female patient in no apparent distress. TUBES/LINES/DRAINS: Barnett catheter, NC, PIV SKIN: No jaundice, rashes, or lesions. Ecchymoses on upper extremities. No wounds seen anteriorly. Skin temperature appropriate. Not diaphoretic. HEAD: Atraumatic. Normocephalic. EYES: Pupils equal and round and reactive. . No scleral icterus. No injection or drainage. Fundi not examined. ENT: Hearing grossly normal. Nose without bleeding or purulent drainage. NECK: Trachea midline. Supple, nontender. No palpable thyroid enlargement or nodularity. CARDIOVASCULAR: Intermittent tachycardia, regular rhythm without murmurs, gallops, or rubs. No JVD. Peripheral pulses symmetric. RESPIRATORY/CHEST: Breath sounds diminished bilaterally. Intermittent accessory muscle use noted. GASTROINTESTINAL: Abdomen soft, non-tender, nondistended. No guarding. Bowel sounds present. GENITOURINARY: Without palpable bladder distension. Barnett catheter in place. MUSCULOSKELETAL: Trace edema BLE, no mottling or clubbing. LYMPHATICS: No palpable cervical or supraclavicular adenopathy. NEUROLOGICAL: Lethargic. Able to make needs known, follows directions. PSYCHIATRIC: Ongoing anxiety. . . . (Donna Raines) Diagnostic Tests Result Diagram: 12/03/16 0353 12/03/16 0353 Procedures 11/26/2016: Intubation 11/28/2016: Extubation . (Donna Raines) Assessment and Plan Disease Oriented Problem List: (1) COPD (chronic obstructive pulmonary disease) (2) HTN (hypertension) (3) Hypothyroidism (4) Depression with anxiety (5) Chronic Renal Failure / insufficiency, unspec (6) CHF (congestive heart failure) (7) CAD (coronary artery disease) (8) Supplemental oxygen dependent (9) DVT prophylaxis (10) Atrial fibrillation (11) Chronic pain (12) History of UT (myocardial infarction) (13) Diverticulosis Symptom Scale: (1) Chronic pain Comment: Morphine 2 mg IV push every 3 hours as needed for pain rated 6/10. . (2) SOB (shortness of breath) Comment: Breath sounds diminished bilaterally with scattered rales. Follow-up chest x-ray on 12/01/2016 showing no significant change, right lung remains almost completely opacified. . (3) Anxiety Comment: Patient has underlying history of anxiety, currently exacerbated secondary to shortness of breath. Orders for lorazepam 1 mg IV push every 6 hours as needed for anxiety; 24-hour dosing requirements = 1mg x 3 (4) Constipation Comment: Patient complains of constipation, bowel protocol in place. . Pertinent Non-Medical Issues Psychosocial:Per EMR and patient interview, Ms. Tillman is originally from [place]. She had 4 sisters and brothers. Patient states she has lost 3 family members to suicide, her mother, her brother and a niece. Patient quit going to school after ninth grade. 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 She moved to [place] approximately 48 years ago with her before they . Patient was for approximately 19 years, together they had one son ( Larry Tillman), who lives locally. 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 Patient states she currently lives independently at home, however documentation states patient is living in a nursing facility. Spiritual: [employer]ism adeline Legal: Health care surrogate form completed 03/16/16, designating the patient's son (Larry) as the HCS. Ethical issues impacting care: No ethical issues impacting care at this time. . Important Contacts Larry Tillman, son: [phone] . Prognosis Ms. Tillman is a 71 year old female who is familiar to palliative care team. She has a long-standing history of COPD on continuous supplemental oxygen 2L via nasal cannula at home with multiple comorbid conditions. The patient has been hospitalized approximately 12 times past 12 months. In February, the patient reported having increased difficulty caring for herself secondary to weakness and fatigue. She reported dyspnea with minimal exertion, stating she could only walk 10-15 feet independently before becoming short of breath. Patient was lethargic on exam s/p receiving lorazepam. Spoke with patient's son , Ruben, via telephone. He indicates the patient was living alone until her last hospitalization in October, and has been residing at a SNF for rehabilitation since that time. Given patient's advanced age, decline in functional status and multiple hospitalizations within the past year-her overall prognosis is poor. Patient is appropriate for hospice services when/if medical treatment goals become . Code Status: No Code Plan * FULL CODE * Decision-making: Patient's son, Larry Tillman, is the designated health care surrogate decision maker. * Goals: Patient considering transitioning to comfort focus goals, hospice consult pending. * Received a phone call from Sherron Mota NP yesterday stating the patient is now verbalizing she no longer desires aggressive interventions. Patient stating , "I'm tired of fighting. I'm weak." She doesn't want us to call her son and discuss discharge planning; she does not 1 him to make decisions for her. On exam today, the patient again expresses comfort focused goals stating, " I just want someone to take care of me. My body can't do it anymore." CODE STATUS was addressed; the procedure of cardiopulmonary resuscitation including compressions ACLS medications, cardioversion and intubation/mechanical ventilation were discussed. Patient states if she should experience cardiopulmonary arrest, she does not want aggressive interventions but instead requests she be allowed to peacefully and naturally. Discussed with Sherron Mota NP, who confirms this is consistent with the conversation she had with the patient yesterday. Also spoke with case management, Elana, to discuss discharge planning. Hospice consult pending. * Symptom managementdyspnea: Breath sounds diminished bilaterally with scattered rales; Follow-up chest x-ray on 12/01/2016 showing no significant change, right lung remains almost completely opacified. * Symptom management- constipation: Patient complains of constipation, bowel protocol in place * Symptom managementanxiety: Patient has underlying history of anxiety, currently exacerbated secondary to shortness of breath. Psychiatry following. Current orders alprazolam 0.5 PO every 8 hours PRN; clonazepam 0.5 mg PO q12 hours; Seroquel 50 mg PO BID. * Symptom managementpain: Patient has a history of chronic back pain. Showing no nonverbal signs or symptoms of pain on exam. Morphine 2 mg IV push every 3 hours as needed for pain rated 6/10 * Palliative care will continue to follow this patient throughout his hospitalization to establish trust, assist with symptom management and clarification of medical treatment goals. . (Donna Raines) Attestation To help prompt me to consider important information that might be impacting today's encounter and assessment, information from prior notes written by myself or my colleagues may have been "brought forward" into today's note. My signature on this note, however, is an attestation that I personally performed the exam, history, and/or decision-making noted today, and, unless otherwise indicated, the interactions with patient, family, and staff as well as the review of records all occurred today. I also attest that the listed assessment and stated plan reflect my best clinical judgment today based on the combination of historical information, prior notes, and today's exam/ interactions. When time spent is documented, it refers only to time spent today by the signer, or if indicated, combined time spent today by collaborating physician/nurse practitioner. . (Donna Raines) Collaborating MD Comments . Chart reviewed. Case discussed with palliative care PRO SHOP ATTENDANT. I have reviewed above PRO SHOP ATTENDANT note and I concur. . (Abel Fox MD) Donna Raines December 07, 2016 13:27 Abel Fox MD December 14, 2016 12:45
[2016-12-07] MEDS: ALPRAZolam 0.5 MG TAB PO PRN ×2 (14:41→22:07)
--- NOTE | 2016-12-07 14:54 | HHI.PR ---
Subjective Remarks resting in bed Awake and conversational Afebrile Encouraged activity out of bed No shortness of breath Peripheral neuropathy pain bilateral both legs (Brionna Fuentes) Objective Objective Results - Vital Signs Date Time Temp Pulse Resp B/P Pulse Ox O2 Delivery O2 Flow Rate FiO2 12/07/16 08:00 97.6 104 20 160/87 96 12/07/16 07:27 72 12/07/16 07:25 Humidified 3.00 12/07/16 04:45 97.2 76 18 152/86 100 12/07/16 00:10 96.2 69 18 136/68 97 12/06/16 20:30 98.5 73 18 170/79 97 12/06/16 20:11 Nasal Cannula 3.00 Humidified 12/06/16 20:09 69 12/06/16 19:07 95 Nasal Cannula 2.00 12/06/16 16:00 96.3 71 18 149/78 100 I/O 12/06/16 12/06/16 12/06/16 12/07/16 12/07/16 12/07/16 06:59 14:59 22:59 06:59 14:59 22:59 Intake Total 240 ml 960 ml 240 ml 120 ml Balance 240 ml 960 ml 240 ml 120 ml Intake Oral 240 ml 960 ml 240 ml 120 ml # Voids 2 3 1 0 # Bowel Movements 0 0 0 0 (Brionna Fuentes) Result Diagram: 12/03/16 0353 12/03/16 0353 ROS General: Fatigue, Weakness (generalized), Other (10 point ROS done positives noted otherwise systems unremarkable) HEENT: Other (decreased appetite) Cardiac: Other (tachycardia within creased activity) Pulmonary: Cough (occasional), SOB (exertional) GI: Diarrhea (incontinent bowels, bowel regimen) Neuro/MS: Other (anxiety) (Brionna Fuentes) Physical Exam Physical Exam PHYSICAL EXAMINATION GENERAL: This is a elderly female who appears to be in no acute distress. She is awake, responds well to verbal stimuli HEAD: Normocephalic without any lesion or mass noted. Facial features appear symmetric. OROPHARYNGEAL: Oropharynx without erythema or edema. NECK: Supple. No nuchal rigidity or lymphadenopathy. Trachea midline without deviation. CARDIAC: Sinus rhythm ,Regular rhythm, regular rate, S1 and S2 heart rate 72- 104 LUNGS: Decreased to auscultation bilaterally. no wheeze, low volumes ABDOMEN: Soft, nontender, no organomegaly or masses. Bowel sounds are heard in all four quadrants. Occasional incontinence EXTREMITIES: no edema. Generalized weakness but can move her extremities without purpose NEUROLOGICAL: Patient mood and affect seems appropriate but probable depression over current medical condition SKIN:Warm and moist, pale Objective Remarks I wished could just go on to another place I'm ready to go leave this world ( Brionna Fuentes) A/P Assessment and Plan (1) Respiratory failure (2) NSTEMI (non-ST elevated myocardial infarction) (3) COPD (chronic obstructive pulmonary disease) (4) Atrial fibrillation (5) Chronic kidney disease (6) Hypothyroidism (7) Depression with anxiety (8) HTN (hypertension) (9) History of [place] (myocardial infarction) (10) CAD (coronary artery disease) Assessment and Plan Vital signs reviewed normal trends, heart rate labile between 72 and 104 Afebrile Labs reviewed Acute respiratory failure with hypoxia and hypercarbia, resolved and stable, Continue O2, duonebs prn, COPD exacerbation Chronic lung opacification secondary to fibrosis, bronchitis and biopsy negative for any cancer -Critical care has been consulted, input is appreciated. Signed off. Pt. extubated 11/28 Continue with DuoNeb's, oxygen Dr. Connelly's input appreciated May discharge when bed available Elevated trop, non-STEMI secondary to cardiac demand -continue with home meds Chronic A. fib, stable, maintained on Xarelto Hypertension, medical management and monitored throughout course of hospital stay Depression and anxiety. Pt. was on multiple meds Buspar, Seroquel, Cymbalta, Mirtazapine, Lexapro, Ativan and Clonazepam -continue Cymbalta, inc. to 60 mg po daily per psych -continue Xanax PRN -Continue Seroquel 50 mg PO BID -appreciate psych input, medication adjustments made. Currently needs medical management, not inpatient psych for now -pastoral care consult, input appreciated. Supportive care to patient, she states she is tired, and doesn't want fight anymore, appears fully alert and seems to understand what she is saying Discussed making sure her family's understands her wishes, she states her son does. Requested prayer at her bedside Constipated-continue to monitor for BM at least every 3 days, patient states BM yesterday -continue Miralax -continue other bowel regimen UTI, resolved, asymptomatic, incontinent luong has been dc'd PT eval and treat, OOB daily Continue with Xarelto for DVT prophylaxis Pepcid for GI prophylaxis Appreciate palliative care input. Patient states again today that she is tired , and ready to go to another place. Asking for prayers, and appears coherent to her wishes States that she cannot it well enough to stay out of the hospital and this is not what she wants to live. Supportive care and prayer given to her per her request clinically stable for discharge. SNF placement pending Possible Discharge to SNF, poss. with hospice, but son states full code, Will reevaluate for SNF placement F/U pulmonary, PCP Diet -heart healthy Activity as tolerated D/W RN D/W Dr. De La Rosa , seen on her behalf D/W Pt. D/W CM (Brionna Fuentes) Assessment and Plan patient seen and examined agree with above assessment and plan awaiting Hospice consult plan of care discussed with Brionna WHITE (Sherry De La Rosa MD) Bironna Fuentes December 07, 2016 14:54 Sherry De La Rosa MD December 07, 2016 16:39
[2016-12-07] MEDS: RESP: ALBUTEROL 2.5 MG/3 ML NEB (PRN) NEB (15:39)
[2016-12-07] MEDS: FAMOTIDINE 20 MG TAB PO SCH (19:54)
[2016-12-07] MEDS: MIRTAZAPINE 15 MG TAB PO SCH (19:55)
[2016-12-07] MEDS: ACETAMINOPHEN 325 MG TAB PO PRN (19:56)
--- NOTE | 2016-12-07 20:44 | HHI.PR ---
Subjective Remarks Better today. On O2 N/C 3 L. .C/O weakness and dizziness. c/o chest pains. Objective Vital Signs Date Time Temp Pulse Resp B/P Pulse Ox O2 Delivery O2 Flow Rate FiO2 12/07/16 19:49 Humidified 3.00 12/07/16 16:00 98.3 80 18 155/74 100 12/07/16 14:50 94 12/07/16 09:17 Nasal Cannula 3.00 12/07/16 08:00 97.6 104 20 160/87 96 12/07/16 07:27 72 12/07/16 07:25 Humidified 3.00 12/07/16 04:45 97.2 76 18 152/86 100 12/07/16 00:10 96.2 69 18 136/68 97 I/O 12/06/16 12/06/16 12/06/16 12/07/16 12/07/16 12/07/16 07:00 15:00 23:00 07:00 15:00 23:00 Intake Total 240 ml 960 ml 240 ml 120 ml 600 ml Balance 240 ml 960 ml 240 ml 120 ml 600 ml Intake Oral 240 ml 960 ml 240 ml 120 ml 600 ml # Voids 2 3 1 0 2 # Bowel Movements 0 0 0 0 0 Result Diagram: 12/03/16 0353 12/03/16 0353 Objective Remarks GENERAL: This is elderly moderately obese white female . HEAD, EYES, EARS, NOSE, THROAT: Head normocephalic. The pupils are reactive. The sclerae clear. Tongue is moist. NECK: The neck is supple without venous distention. No thyromegaly or lymphadenopathy. CHEST: Decreased breath sounds over the right lung field. The left chest has good breath sounds .Occ Wheeze HEART: The heart sounds are regular. S1 and S2. No murmur. No S3. ABDOMEN: Abdomen is soft and protuberant without masses. No organomegaly or tenderness. The bowel sounds are active. EXTREMITIES: No edema. Peripheral pulses are well-felt. NEUROLOGIC: Reflexes are 1+. The patient is awake SKIN: No lesions are observed. Assessment and Plan Assessment and Plan IMPRESSION: 1. Acute on chronic respiratory failure. 2. Severe COPD with acute exacerbation. 3. Chronic right lung opacification with atelectasis. 4. 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 5. Atrial fibrillation. 6. Obstructive pneumonia. Plan : 1. O2 3 L N/C 2. Cont Nebs qid Duoneb 3. lasix 20 mg daily. 4. IS qid at Bedside 5. Transfer to rehab this week 6. Cont Anticoagulants. Wandy Preciado MD December 07, 2016 20:44
[2016-12-08] VITALS (10 sets, daily range): BP systolic 143–166; BP diastolic 65–80; PULSE 66–83; RESP 17–21; TEMP 96–98.4; O2SAT 90–100
[2016-12-08] MEDS: METOPROLOL TARTRATE 25 MG TAB PO SCH ×3 (00:01→15:33)
[2016-12-08] MEDS: LEVOTHYROXINE SODIUM 50 MCG TAB PO SCH (06:14)
[2016-12-08] MEDS: CHLORHEXIDINE 0.12% (ORAL KIT) 15 ML CUP MT SCH ×2 (08:00→20:00)
[2016-12-08] MEDS: POLYETHYLENE GLYCOL 17 GM PKG PO SCH (08:34)
[2016-12-08] MEDS: clonazePAM 0.5 MG TAB PO SCH ×2 (08:34→20:23)
[2016-12-08] MEDS: QUEtiapine FUMARATE 25 MG TAB PO SCH ×2 (08:34→20:23)
[2016-12-08] MEDS: DULoxetine HCl DR 30 MG CAP PO SCH (08:34)
[2016-12-08] MEDS: POTASSIUM CHLORIDE 20 MEQ CONTROLLED RELEASE TAB PO SCH (08:34)
[2016-12-08] MEDS: LIPASE/PROTEASE/AMYLASE (24,000/76,000/120,000) CAP PO SCH ×3 (08:35→15:33)
[2016-12-08] MEDS: RIVAROXABAN 20 MG TAB PO SCH (08:35)
[2016-12-08] MEDS: FUROSEMIDE 20 MG TAB PO SCH (08:35)
[2016-12-08] MEDS: ASPIRIN 81 MG CHEW TAB CHEW SCH (08:39)
[2016-12-08] MEDS: TIOTROPIUM BROMIDE 18 MCG INH INH SCH (08:39)
[2016-12-08] MEDS: BUDESONIDE-FORMOTEROL 160/4.5 MCG INHALER INH SCH ×2 (08:39→20:23)
[2016-12-08] MEDS: SODIUM CHLORIDE 0.9% FLUSH 10 ML FLUSH IV FLUSH SCH ×2 (08:40→20:23)
--- NOTE | 2016-12-08 13:22 | HHI.PR ---
Subjective Remarks resting in bed Awake and conversational Afebrile Physical therapy and patient set on side of the bed No shortness of breath at rest Decreased appetite, doesn't like hospital food (Brionna Fuentes) Objective Objective Results - Vital Signs Date Time Temp Pulse Resp B/P Pulse Ox O2 Delivery O2 Flow Rate FiO2 12/08/16 11:37 97.8 67 21 145/75 98 12/08/16 07:29 96.0 83 21 151/80 90 12/08/16 04:25 96.4 66 18 145/78 100 12/08/16 00:15 96.7 67 19 143/65 100 12/07/16 23:01 76 12/07/16 21:40 98 Nasal Cannula 3.00 12/07/16 20:10 98.0 81 20 156/78 99 12/07/16 19:49 Humidified 3.00 12/07/16 16:00 98.3 80 18 155/74 100 12/07/16 14:50 94 I/O 12/07/16 12/07/16 12/07/16 12/08/16 12/08/16 12/08/16 07:00 15:00 23:00 07:00 15:00 23:00 Intake Total 120 ml 600 ml 240 ml 240 ml Balance 120 ml 600 ml 240 ml 240 ml Intake Oral 120 ml 600 ml 240 ml 240 ml # Voids 0 2 2 0 # Bowel Movements 0 0 0 0 (Brionna Fuentes) ROS General: Fatigue, Weakness, Other (10 point ROS done positives noted) HEENT: Other (decreased appetite) Pulmonary: Cough (occasional), SOB (exertional), Wheezing (done for now) GI: BM (bowel regimen reviewed) Neuro/MS: Other (anxiety at times, complains of peripheral neuropathy pain) ( Brionna Fuentes) Physical Exam Physical Exam PHYSICAL EXAMINATION GENERAL: This is a elderly obese female who appears to be in no acute distress. She is alert and awake, mild anxiety HEAD: Normocephalic without any lesion or mass noted. Facial features appear symmetric. OROPHARYNGEAL: Oropharynx without erythema or edema. NECK: Supple. No nuchal rigidity or lymphadenopathy. Trachea midline without deviation. CARDIAC: Regular rhythm, regular rate, S1 and S2 are heard. LUNGS: Diminished to auscultation bilaterally. No acute wheezes or rhonchi noted ABDOMEN: Soft, nontender, no organomegaly or masses. Bowel sounds soft EXTREMITIES: no edema. Pulses present NEUROLOGICAL: Patient mood and affect flat. Doesn't seem to see any lightheaded and at the tunnel SKIN:Warm and moist Objective Remarks I just want to go home (Brionna Fuentes) A/P Assessment and Plan (1) Respiratory failure (2) NSTEMI (non-ST elevated myocardial infarction) (3) COPD (chronic obstructive pulmonary disease) (4) Atrial fibrillation (5) Chronic kidney disease (6) Hypothyroidism (7) Depression with anxiety (8) HTN (hypertension) (9) History of [place] (myocardial infarction) (10) CAD (coronary artery disease) Assessment and Plan Vital signs reviewed normal trends, heart rate labile between 72 and 104 Afebrile Labs reviewed Acute respiratory failure with hypoxia and hypercarbia, resolved and stable, Continue O2, duonebs prn, COPD exacerbation Dr. Connelly's input appreciated May discharge when bed available , hospice versus rehabilitation SNF Elevated trop, non-STEMI secondary to cardiac demand -continue with home meds stable Chronic A. fib, stable, maintained on Xarelto stable Hypertension, medical management and monitored throughout course of hospital stay stable Depression and anxiety. Pt. was on multiple meds Buspar, Seroquel, Cymbalta, Mirtazapine, Lexapro, Ativan and Clonazepam -continue Cymbalta, inc. to 60 mg po daily per psych -continue Xanax PRN, patient more talkative today but still sees no lidocaine and of the tunnel -Continue Seroquel 50 mg PO BID -appreciate psych input, medication adjustments made. Currently needs medical management, not inpatient psych for now -pastoral care consult, input appreciated. Supportive care to patient, Constipated-continue to monitor for BM at least every 3 days, patient states BM 1 day ago -continue Miralax -continue other bowel regimen UTI, resolved, asymptomatic, incontinent luong has been dc'd PT eval and treat, patient states that she is getting sitting on the side of the bed with PT, but not getting up Continue with Xarelto for DVT prophylaxis Pepcid for GI prophylaxis Appreciate palliative care input. CODE STATUS changed to DO NOT RESUSCITATE clinically stable for discharge. SNF placement pending versus hospice, consult is pending F/U pulmonary, PCP Diet -heart healthy Activity as tolerated D/W RN D/W Dr. De La Rosa , seen on her behalf D/W Pt. (Brionna Fuentes) Assessment and Plan patient seen and examined plan to go to SNF with Hospice in am discussed with family caseworker discussed with Brionna doran acute issues (Sherry De La Rosa MD) Brionna Fuentes December 08, 2016 13:22 Sherry De La Rosa MD December 08, 2016 16:27
--- NOTE | 2016-12-08 14:29 | HHI.HCPN ---
Reason for visit a. To assist with evaluation and management of symptoms including: Dyspnea, anxiety, chronic pain, constipation b. To assist medical decision maker(s) with: better understanding of current medical conditions; weighing benefits/burdens of medical treatment options; making medical treatment decisions. . (Donna Raines) Subjective/Interval History Ms. Tillman is a 71 year old female currently admitted with acute COPD exacerbation. PMH includes CHF, COPD, CAD s/p [place] x 2, h/o esophageal stricture, h/o small cell lung cancer s/p chemotherapy and radiation in 2004, diverticulosis, atrial fibrillation, depression/anxiety, hypothyroidism and HTN. Patient has been hospitalized 12 times in the past year. Follow-up visit for symptom management and clarification of medical treatment goals. Patient presents lying in bed with eyes closed, face relaxed. Arouses easily to verbal stimuli, denies pain or anxiety. Respirations unlabored n 3L via nasal cannula, oxygen saturation 96%. Follow-up chest x-ray on 12/01/2016 showed no significant change, right lung remains almost completely opacified. Afebrile; hemodynamically stable. No recent lab work available. Urine culture from 11/30/2016: + Enterococcus, antibiotic course completed 12/03/16. Patient complaining of diminished appetite; eating approximately 40% per notes. Physical therapy following. Patient was agreeable to getting out of bed, assisted to bedside commode. Fatigues quickly and becomes dyspneic with minimal exertion; heart rate increased 104 and oxygen saturation dropped into the mid 80s. Hospice continues to follow patient. Case management continues to work toward placement. Hospital course discussed with both hospice admission nurse (Deann) and case management (Elana). . (Donna Raines) Advance Directives Health Care Surrogate: Copy in medical record (Donna Raines) Advance Directive Specifics Date completed: 03/16/2016 . Health Care Surrogate(s): Patient has designated her son, Larry Tillman, as the health care surrogate decision maker. . (Donna Raines) Objective Vital Signs Date Time Temp Pulse Resp B/P Pulse Ox O2 Delivery O2 Flow Rate FiO2 12/08/16 13:49 96 Nasal Cannula 3.00 12/08/16 11:37 97.8 67 21 145/75 98 12/08/16 07:29 96.0 83 21 151/80 90 12/08/16 04:25 96.4 66 18 145/78 100 12/08/16 00:15 96.7 67 19 143/65 100 12/07/16 23:01 76 12/07/16 21:40 98 Nasal Cannula 3.00 12/07/16 20:10 98.0 81 20 156/78 99 12/07/16 19:49 Humidified 3.00 12/07/16 16:00 98.3 80 18 155/74 100 12/07/16 14:50 94 Intake & Output 12/08/16 12/08/16 07:00 19:00 Intake Total 480 ml Balance 480 ml Intake Oral 480 ml # Voids 2 # Bowel Movements 0 . Physical Exam CONSTITUTIONAL/GENERAL: This is an adequately nourished, elderly female patient in no apparent distress. TUBES/LINES/DRAINS: Barnett catheter, NC, PIV SKIN: No jaundice, rashes, or lesions. Ecchymoses on upper extremities. No wounds seen anteriorly. Skin temperature appropriate. Not diaphoretic. HEAD: Atraumatic. Normocephalic. EYES: Pupils equal and round and reactive. . No scleral icterus. No injection or drainage. Fundi not examined. ENT: Hearing grossly normal. Nose without bleeding or purulent drainage. NECK: Trachea midline. Supple, nontender. No palpable thyroid enlargement or nodularity. CARDIOVASCULAR: Intermittent tachycardia, regular rhythm without murmurs, gallops, or rubs. No JVD. Peripheral pulses symmetric. RESPIRATORY/CHEST: Breath sounds diminished bilaterally. GASTROINTESTINAL: Abdomen soft, non-tender, nondistended. No guarding. Bowel sounds present. GENITOURINARY: Without palpable bladder distension. Barnett catheter in place. MUSCULOSKELETAL: Trace edema BLE, no mottling or clubbing. LYMPHATICS: No palpable cervical or supraclavicular adenopathy. NEUROLOGICAL: Lethargic. Able to make needs known, follows directions. PSYCHIATRIC: Ongoing anxiety. . . . (Donna Raines) Diagnostic Tests Procedures 11/26/2016: Intubation 11/28/2016: Extubation . (Donna Raines) Assessment and Plan Disease Oriented Problem List: (1) COPD (chronic obstructive pulmonary disease) (2) HTN (hypertension) (3) Hypothyroidism (4) Depression with anxiety (5) Chronic Renal Failure / insufficiency, unspec (6) CHF (congestive heart failure) (7) CAD (coronary artery disease) (8) Supplemental oxygen dependent (9) DVT prophylaxis (10) Atrial fibrillation (11) Chronic pain (12) History of [place] (myocardial infarction) (13) Diverticulosis Symptom Scale: (1) Chronic pain Comment: Morphine 2 mg IV push every 3 hours as needed for pain rated 6/10. . (2) SOB (shortness of breath) Comment: Breath sounds diminished bilaterally. Patient fatigues easily, becoming dyspneic with exertion. Earlier today 12/08/16 while working with physical therapy, patient became short of breath and oxygen saturations dropped into the mid 80s, heart rate increased to 104. Symptoms resolved spontaneously with rest. . (3) Anxiety Comment: Patient has underlying history of anxiety, currently exacerbated secondary to shortness of breath. Orders for lorazepam 1 mg IV push every 6 hours as needed for anxiety; 24-hour dosing requirements = 1mg x 3 (4) Constipation Comment: Bowel protocol in place. . Pertinent Non-Medical Issues Psychosocial:Per EMR and patient interview, Ms. Tillman is originally from [place]. She had 4 sisters and brothers. Patient states she has lost 3 family members to suicide, her mother, her brother and a niece. Patient quit going to school after ninth grade. 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 She moved to [place] approximately 48 years ago with her before they . Patient was for approximately 19 years, together they had one son ( Larry Tillman), who lives locally. 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 Patient states she currently lives independently at home, however documentation states patient is living in a nursing facility. Spiritual: Zoroastrian adeline Legal: Health care surrogate form completed 03/16/16, designating the patient's son (Larry) as the HCS. Ethical issues impacting care: No ethical issues impacting care at this time. . Important Contacts Larry Tillman, son: [phone] . Prognosis Ms. Tillman is a 71 year old female who is familiar to palliative care team. She has a long-standing history of COPD on continuous supplemental oxygen 2L via nasal cannula at home with multiple comorbid conditions. The patient has been hospitalized approximately 12 times past 12 months. In February, the patient reported having increased difficulty caring for herself secondary to weakness and fatigue. She reported dyspnea with minimal exertion, stating she could only walk 10-15 feet independently before becoming short of breath. Patient was lethargic on exam s/p receiving lorazepam. Spoke with patient's son , Ruben, via telephone. He indicates the patient was living alone until her last hospitalization in October, and has been residing at a SNF for rehabilitation since that time. Given patient's advanced age, decline in functional status and multiple hospitalizations within the past year-her overall prognosis is poor. Patient is appropriate for hospice services when/if medical treatment goals become . Code Status: No Code Plan * FULL CODE * Decision-making: Patient's son, Larry Tillman, is the designated health care surrogate decision maker. * Goals: Patient considering transitioning to comfort focus goals, hospice consult pending. * Symptom managementdyspnea: Breath sounds diminished bilaterally. Patient fatigues easily, becoming dyspneic with exertion. Earlier today 12/08/16 while working with physical therapy, patient became short of breath and oxygen saturations dropped into the mid 80s, heart rate increased to 104. Symptoms resolved spontaneously with rest. * Symptom management- constipation: Bowel protocol in place * Symptom managementanxiety: Patient has underlying history of anxiety, currently exacerbated secondary to shortness of breath. Psychiatry following. Current orders alprazolam 0.5 PO every 8 hours PRN; clonazepam 0.5 mg PO q12 hours; Seroquel 50 mg PO BID. * Symptom managementpain: Patient has a history of chronic back pain. Showing no nonverbal signs or symptoms of pain on exam. Morphine 2 mg IV push every 3 hours as needed for pain rated 6/10 * Hospice continues to follow patient. Case management continues to work toward placement. Hospital course discussed with both hospice admission nurse (Deann) and case management (Elana). * Palliative care will continue to follow this patient throughout his hospitalization to establish trust, assist with symptom management and clarification of medical treatment goals. . (Donna Raines) Attestation To help prompt me to consider important information that might be impacting today's encounter and assessment, information from prior notes written by myself or my colleagues may have been "brought forward" into today's note. My signature on this note, however, is an attestation that I personally performed the exam, history, and/or decision-making noted today, and, unless otherwise indicated, the interactions with patient, family, and staff as well as the review of records all occurred today. I also attest that the listed assessment and stated plan reflect my best clinical judgment today based on the combination of historical information, prior notes, and today's exam/ interactions. When time spent is documented, it refers only to time spent today by the signer, or if indicated, combined time spent today by collaborating physician/nurse practitioner. . (Donna Raines) Collaborating MD Comments . Chart reviewed. Case discussed with palliative care PESTICIDE CONTROL INSPECTOR. Above PESTICIDE CONTROL INSPECTOR note reviewed and I concur. . (Abel Fox MD) Donna Raines December 08, 2016 14:28 Abel Fox MD December 14, 2016 16:26
--- NOTE | 2016-12-08 14:44 | HHI.HCPN ---
Met with Ms. Tillman for follow-up on goals of care and ongoing support. Ms. Tillman is alert and able to make her needs known. Self reports some confusion, is somewhat appropriate in conversation but easily redirected. Reports some shortness of breath at times and some mild pain, pointing to her sides. Does not appear she ate much of her lunch, requests ice cream then declines eating it stating she feels like she needs to take a nap. Offered emotional support. Ms. Tillman inquires about getting her hair washed, informed [employer]. Briefly discussed goals of care. Ms. Tillman confirms DNR status, declines completing community DNR stating she hasn't spoken with her son yet. Tells me she is thinking about hospice. Inquired about sons support of this decision, states she hasn't spoken with him and asks to "not talk about this right now, it upsets me". Offered support. Palliative care will continue to follow throughout hospitalization. Dalia Worthington, CLOTH DYER December 08, 2016 14:44
[2016-12-08] MEDS: ALPRAZolam 0.5 MG TAB PO PRN (15:33)
[2016-12-08] MEDS: RESP: ALBUTEROL 2.5 MG/3 ML NEB (PRN) NEB ×2 (17:25→23:54)
--- NOTE | 2016-12-08 18:55 | HHI.PR ---
Subjective Remarks Alert and breathing well. On O2 N/C 3 L. .C/O weakness and dizziness. No chest pains. Objective Vital Signs Date Time Temp Pulse Resp B/P Pulse Ox O2 Delivery O2 Flow Rate FiO2 12/08/16 17:25 95 Nasal Cannula 3.00 12/08/16 15:52 98.4 77 21 149/80 95 12/08/16 15:03 74 12/08/16 13:49 96 Nasal Cannula 3.00 12/08/16 11:37 97.8 67 21 145/75 98 12/08/16 07:40 Nasal Cannula 3.00 12/08/16 07:29 96.0 83 21 151/80 90 12/08/16 04:25 96.4 66 18 145/78 100 12/08/16 00:15 96.7 67 19 143/65 100 12/07/16 23:01 76 12/07/16 21:40 98 Nasal Cannula 3.00 12/07/16 20:10 98.0 81 20 156/78 99 12/07/16 19:49 Humidified 3.00 I/O 12/07/16 12/07/16 12/07/16 12/08/16 12/08/16 12/08/16 07:00 15:00 23:00 07:00 15:00 23:00 Intake Total 120 ml 600 ml 240 ml 240 ml 500 ml Balance 120 ml 600 ml 240 ml 240 ml 500 ml Intake Oral 120 ml 600 ml 240 ml 240 ml 500 ml # Voids 0 2 2 0 3 # Bowel Movements 0 0 0 0 0 Objective Remarks GENERAL: This is elderly moderately obese white female . HEAD, EYES, EARS, NOSE, THROAT: Head normocephalic. The pupils are reactive. The sclerae clear. Tongue is moist. NECK: The neck is supple without venous distention. No thyromegaly or lymphadenopathy. CHEST: Decreased breath sounds over the right lung field. The left chest has good breath sounds . HEART: The heart sounds are regular. S1 and S2. No murmur. No S3. ABDOMEN: Abdomen is soft and protuberant without masses. No organomegaly or tenderness. The bowel sounds are active. EXTREMITIES: No edema. Peripheral pulses are well-felt. NEUROLOGIC: Reflexes are 1+. The patient is awake SKIN: No lesions are observed. Assessment and Plan Assessment and Plan IMPRESSION: 1. Acute on chronic respiratory failure. 2. Severe COPD with acute exacerbation. 3. Chronic right lung opacification with atelectasis. 4. 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 5. Atrial fibrillation. 6. Obstructive pneumonia. Plan : 1. O2 3 L N/C 2. Cont Nebs qid Duoneb 3. lasix 20 mg daily. 4.Symbicort 160/4.5 mcg , 2puffs bid 5. Transfer to rehab this week 6. Cont Anticoagulants. Wandy Preciado MD December 08, 2016 18:55
[2016-12-08] MEDS: MIRTAZAPINE 15 MG TAB PO SCH (20:23)
[2016-12-08] MEDS: FAMOTIDINE 20 MG TAB PO SCH (20:23)
[2016-12-09] VITALS: BP 161/74; PULSE 70; RESP 18; TEMP 96.3; O2SAT 98
[2016-12-09] MEDS: METOPROLOL TARTRATE 25 MG TAB PO SCH ×2 (00:29→08:46)
[2016-12-09 04:00] VITALS: BP 136/81; PULSE 93; RESP 17; TEMP 97; O2SAT 97
[2016-12-09] MEDS: LEVOTHYROXINE SODIUM 50 MCG TAB PO SCH (04:57)
[2016-12-09 08:00] VITALS: BP 158/70; PULSE 107; RESP 20; TEMP 98; O2SAT 91
[2016-12-09] MEDS: CHLORHEXIDINE 0.12% (ORAL KIT) 15 ML CUP MT SCH (08:00)
[2016-12-09] MEDS: LIPASE/PROTEASE/AMYLASE (24,000/76,000/120,000) CAP PO SCH (08:46)
[2016-12-09] MEDS: clonazePAM 0.5 MG TAB PO SCH (08:46)
[2016-12-09] MEDS: DULoxetine HCl DR 30 MG CAP PO SCH (08:46)
[2016-12-09] MEDS: FUROSEMIDE 20 MG TAB PO SCH (08:46)
[2016-12-09] MEDS: POTASSIUM CHLORIDE 20 MEQ CONTROLLED RELEASE TAB PO SCH (08:46)
[2016-12-09] MEDS: QUEtiapine FUMARATE 25 MG TAB PO SCH (08:47)
[2016-12-09] MEDS: RIVAROXABAN 20 MG TAB PO SCH (08:47)
[2016-12-09] MEDS: SODIUM CHLORIDE 0.9% FLUSH 10 ML FLUSH IV FLUSH SCH (08:48)
[2016-12-09] MEDS: BUDESONIDE-FORMOTEROL 160/4.5 MCG INHALER INH SCH (08:48)
[2016-12-09] MEDS: TIOTROPIUM BROMIDE 18 MCG INH INH SCH (08:48)
[2016-12-09] MEDS: ASPIRIN 81 MG CHEW TAB CHEW SCH (08:49)
[2016-12-09] MEDS: POLYETHYLENE GLYCOL 17 GM PKG PO SCH (08:50)
[2016-12-09 08:54] VITALS: PULSE 102
--- NOTE | 2016-12-09 15:14 | HHI.PR ---
Subjective Remarks calm, wants someone to sit with her no sob no wheezing eating okay no acute changes overnight Objective Objective Results - Vital Signs Date Time Temp Pulse Resp B/P Pulse Ox O2 Delivery O2 Flow Rate FiO2 12/09/16 08:54 102 12/09/16 08:00 98.0 107 20 158/70 91 12/09/16 04:00 97.0 93 17 136/81 97 12/09/16 00:00 96.3 70 18 161/74 98 12/08/16 23:57 99 Nasal Cannula 3.00 12/08/16 21:00 Nasal Cannula 3.00 12/08/16 20:00 98.3 79 17 166/72 96 12/08/16 17:25 95 Nasal Cannula 3.00 12/08/16 15:52 98.4 77 21 149/80 95 I/O 12/08/16 12/08/16 12/08/16 12/09/16 12/09/16 12/09/16 07:00 15:00 23:00 07:00 15:00 23:00 Intake Total 240 ml 500 ml 240 ml 240 ml Balance 240 ml 500 ml 240 ml 240 ml Intake Oral 240 ml 500 ml 240 ml 240 ml # Voids 0 3 1 2 # Bowel Movements 0 0 0 0 Imaging Last Impressions Chest X-Ray 11/26/16 0137 Signed Impressions: Service Date/Time: Saturday, November 26, 2016 01:52 - CONCLUSION: Stable examination of the chest compared to the prior studies with near complete opacification of the right hemithorax. The left lung remains grossly clear. Arie Olvera MD ROS General: Weakness (improved ) Pulmonary: SOB (improved), Wheezing (resolving ) Psych: Anxiety (improved) Physical Exam Physical Exam GENERAL: This is an elderly female no acute distress. SKIN: No rashes, ecchymoses or lesions. Cool and dry. HEAD: Atraumatic. Normocephalic. No temporal or scalp tenderness. EYES: Pupils pinpoint, sluggish. No scleral icterus. No injection or drainage. ENT: Nose without bleeding, purulent drainage or septal hematoma. Throat without erythema, tonsillar hypertrophy or exudate. Uvula midline. Airway patent. NECK: Trachea midline. No JVD or lymphadenopathy. Supple, nontender, no meningeal signs. CARDIOVASCULAR: Regular rate and rhythm without murmurs, gallops, or rubs. RESPIRATORY: diminished, faint wheezes GASTROINTESTINAL: Abdomen soft, non-tender, nondistended. No hepato-splenomegaly , or palpable masses. No guarding. MUSCULOSKELETAL: Extremities without clubbing, cyanosis, or edema. No joint tenderness, effusion, or edema noted. No calf tenderness. Negative Homans sign bilaterally. NEUROLOGICAL:awakes to voice, oriented x 3, much more improved. Less anxious Urinary Catheter: No Vascular Central Line Catheter: No A/P Diagnosis: (1) Respiratory failure (2) NSTEMI (non-ST elevated myocardial infarction) (3) COPD (chronic obstructive pulmonary disease) (4) Atrial fibrillation (5) Chronic kidney disease (6) Hypothyroidism (7) Depression with anxiety (8) HTN (hypertension) (9) History of [place] (myocardial infarction) (10) CAD (coronary artery disease) Assessment and Plan 71-year-old female with history of COPD oxygen dependent, CAD, afib, hx lung cancer. Pt. patient presented to the emergency room with shortness of breath, initially put on BiPAP. Patient decompensated requiring mechanical ventilation. 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 Negative for malignancy -Critical care has been consulted, input is appreciated. Signed off. Pt. extubated 11/28 Continue with DuoNeb's, oxygen -off steroids -DC abx Dr. Connelly's input appreciated -improving, ok for dc Elevated trop, non-STEMI secondary to cardiac demand -continue with home meds Chronic A. fib, stable Continue with Lopressor 25 mg by mouth 3 times a day Continue with Xarelto Hypertension Continue home medications Depression and anxiety. Pt. was on multiple meds Buspar, Seroquel, Cymbalta, Mirtazapine, Lexapro, Ativan and Clonazepam -continue Cymbalta, inc. to 60 mg po daily per psych -continue Xanax PRN -Continue Seroquel 50 mg PO BID -appreciate psych input, medication adjustments made. Input appreciated. -pastoral care consult, input appreciated. -overall, better mood, not as labile and anxious. Chronic kidney disease stage III, Continue to monitor Avoid nephrotoxic agents -stable Constipated-had BM -continue Miralax -continue other bowel regimen heartburn -continue Pepcid 20 mg PO daily UTI luong has been dc'd -UA/UC + Enterococcus faecalis -DC Levaquin -hold off abx, no fever -afebrile, stable PT eval and treat, OOB daily Continue with Xarelto for DVT prophylaxis Pepcid for GI prophylaxis Appreciate palliative care input. Hospice consulted, pt. not sure to proceed but changed code status to DNR clinically stable for discharge discharge to SNF diet-heart healthy activity-as tolerated F/U pulmonary, PCP D/W RN D/W Dr. De La Rosa D/W Pt. D/W CM This patient was seen by myself and Dr. De La Rosa, this note is written on his behalf Discharge Planning 45 Problem Qualifiers (1) Respiratory failure: Qualified Code: J96.21 - Acute on chronic respiratory failure with hypoxia and hypercapnia (2) Atrial fibrillation: Qualified Code: I48.2 - Chronic atrial fibrillation (3) Chronic kidney disease: Qualified Code: N18.3 - Stage 3 chronic kidney disease (4) Hypothyroidism: Qualified Code: E03.9 - Hypothyroidism, unspecified type (5) HTN (hypertension): Qualified Code: I10 - Essential hypertension (6) CAD (coronary artery disease): Qualified Code: I25.118 - Coronary artery disease involving [place] coronary artery of [place] heart with other form of angina pectoris Sherron Mota December 09, 2016 15:14
--- NOTE | 2016-12-09 20:32 | HHI.DS ---
Discharge Summary Admission Date November 26, 2016 at 04:42 Discharge Date: December 09, 2016 Admitting Diagnosis acute exacerbation COPD (1) Respiratory failure (2) NSTEMI (non-ST elevated myocardial infarction) (3) COPD (chronic obstructive pulmonary disease) (4) Atrial fibrillation (5) Chronic kidney disease (6) Hypothyroidism (7) Depression with anxiety (8) HTN (hypertension) (9) History of [place] (myocardial infarction) (10) CAD (coronary artery disease) Brief History Imaging Last Impressions Chest X-Ray 12/01/16 0600 Signed Impressions: Service Date/Time: Thursday, December 01, 2016 04:48 - CONCLUSION: No significant change. 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 fib, depression, anxiety, hypertension. Patient has been admitted multiple times for COPD exacerbation requiring BiPAP. Patient again presented via EMS for shortness of breath, she is on oxygen at home. Patient was put on nonrebreather and given IV steroids and DuoNeb's. She was put on BiPAP initially. Laboratory workup completed was essentially unremarkable, except for mild elevation in creatinine 1.12. B natriuretic peptide 391. Troponin 0.25. Patient was admitted to the intensive care unit on BiPAP. Around 6:30 am the next day, she was evaluated by ballet master/mistress and was noted to be in extreme respiratory distress. Patient was mechanically intubated and put on propofol. During prior admissions, code status and end-of- life care discussions have been held with patient and she has refused hospice and DO NOT RESUSCITATE status. There was no family at bedside at that time. Patient was hemodynamically stable. She was sedated. Patient was admitted for further evaluation and treatment for: (1) Respiratory failure (2) NSTEMI (non-ST elevated myocardial infarction) (3) COPD (chronic obstructive pulmonary disease) (4) Atrial fibrillation (5) Chronic kidney disease (6) Hypothyroidism (7) Depression with anxiety (8) HTN (hypertension) (9) History of [place] (myocardial infarction) (10) CAD (coronary artery disease) During the course of the hospitalization, the following took place: 71-year-old female with history of COPD oxygen dependent, CAD, afib, hx lung cancer. Pt. patient presented to the emergency room with shortness of breath, initially put on BiPAP. Patient decompensated requiring mechanical ventilation. 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 Negative for malignancy -Critical care was consulted, input is appreciated. Signed off. Pt. extubated Continue with DuoNeb's, oxygen -off steroids -DCd abx Dr. Connelly's input appreciated. -Pt. improved, back to baseline. Chronically SOB worst with excessive activity. Was cleared for dc Elevated trop, non-STEMI secondary to cardiac demand -continued with home meds -stable Chronic A. fib, stable Continue with Lopressor 25 mg by mouth 3 times a day Continued with Xarelto Hypertension Continue home medications Depression and anxiety. Pt. was on multiple meds Buspar, Seroquel, Cymbalta, Mirtazapine, Lexapro, Ativan and Clonazepam -continued Cymbalta, inc. to 60 mg po daily per psych -continued Xanax PRN -Continued Seroquel 50 mg PO BID -appreciate psych input, medication adjustments made. Input appreciated. -pastoral care consulted, input appreciated. -overall, better mood, not as labile and anxious. Chronic kidney disease stage III, Continued to monitor Avoided nephrotoxic agents -stable, BMP followed daily Constipated- -continue Miralax -continue other bowel regimen -had BM c/o heartburn -put Pepcid 20 mg PO daily UTI luong was dc'd -UA/UC + Enterococcus faecalis. Had one dose of Levaquin until sens. back. -DCd Levaquin -held off abx, no fever -afebrile, stable PT eval and treat, OOB daily Continued with Xarelto for DVT prophylaxis Pepcid for GI prophylaxis Palliative care consulted to assist with goal of care. They met with pt and son. Initially closed remain aggressive. Case management consulted for DC planning. Placement was challenging due to some behavior issues patient had had in the past. During hospitalization, patient very anxious which required psychiatric evaluation. Patient was tearful, did express her desire not continue further aggressive treatment. Palliative care requested to speak to patient again. Pastoral also spoke to patient Appreciate palliative care input. Hospice consulted, pt. not sure to proceed but changed code status to DNR clinically stable for discharge discharged to SNF diet-heart healthy activity-as tolerated F/U pulmonary, PCP Pt Condition on Discharge: Stable Discharge Disposition: Discharge to SNF Discharge Instructions DIET: Follow Instructions for: Heart Healthy Diet Speech Therapy-Diet Recommends: Mechanical Soft, Chopped Meat w/Gravy Activities you can perform: Weight Bearing as Sherri Follow up Referrals: PCP Follow-up Pulmonology Continued Medications: Albuterol Neb (Albuterol Neb) 2.5 Mg/3 Ml Neb 2.5 MG INH Q2HR NEB PRN SOB/WHEEZING #60 NEBULE Alprazolam (Xanax) 0.5 Mg Tab 0.5 MG PO Q6H PRN ANXIETY Days 14 TAB (This prescription has been renewed) Kuciaflg-Vuwygzbca-Vkfpqgcpwwn Liq (Mylanta Liq) 200-200-20 Mg/5 Ml Susp 30 ML PO Q8HR Take between meals or as directed. Shake well. Maximum 120 ml/24 hrs. Reflux Ref [address] (Aspir-81) [address] (Cymbalta DR) 30 Mg Capdr 30 MG PO DAILY #30 Ref 0 CAP Enalapril (Enalapril) 20 Mg Tab 20 MG PO DAILY #30 Ref 0 TAB Escitalopram (Lexapro) 20 Mg Tab 20 MG PO DAILY #30 Ref 0 TAB Furosemide (Furosemide) 20 Mg Tab 20 MG PO DAILY FLUID OVERLOAD #30 Ref 1 TAB Hydrocodone-Acetaminophen (Hydrocodone-Acetaminophen) 5-325 mg Tab 1 TAB PO Q6H PRN PAIN Days 14 Ref 0 TAB (This prescription has been renewed) Levothyroxine (Levothyroxine) 50 Mcg Tab 50 MCG PO DAILY Thyroid #30 Ref 0 TAB Melatonin (Melatonin) 5 Mg Tab 3 MG PO HS Provide Good Sleep Ref 0 TAB Metoprolol Tartrate (Metoprolol Tartrate) 25 Mg Tab 25 MG PO TID #60 Ref 0 TAB Mirtazapine (Mirtazapine) 15 Mg Tab 15 MG PO HS Depression Control #30 Ref 0 TAB Pancrelipase (Creon) 24,000-76,000-120,000 Units Cap 1 CAP PO TID abdominal pain #90 CAP Potassium Chloride ER (Potassium Chloride ER) 10 Meq Cap 10 MEQ PO DAILY Electrolyte Replacement #30 Ref 0 CAP Quetiapine (Quetiapine) 25 Mg Tab 50 MG PO BID Psychosis #60 Ref 1 TAB Ranitidine (Zantac 150 Maximum Strength) 150 Mg Tab 150 MG PO BID TAB Rivaroxaban (Xarelto) 15 Mg Tab 20 MG PO DAILY atrial fibrillation #60 TAB Discontinued Medications: Buspirone (Buspirone) 10 Mg Tab 10 MG PO TID Anxiety Ref 0 TAB Clonazepam (Klonopin) 0.5 Mg Tab 0.5 MG PO Q12HR Anxiety and/or Insomnia Days 14 TAB Levofloxacin (Levaquin) 500 Mg Tab 500 MG PO DAILY Infection #4 TAB Lorazepam (Lorazepam) 1 Mg Tab 1 MG PO Q4H PRN for severe anxiety or dyspnea Ref 0 TAB Quetiapine (Quetiapine) 25 Mg Tab 25 MG PO BID bipolar #30 TAB Quetiapine (Seroquel) 50 Mg Tab 50 MG PO DAILY #30 Ref 0 TAB Sherron Mota [facility] December 09, 2016 20:32
== END 2016-12-09 12:35 | DRG 208 ==
LOC: NEPC 01:34 → NEDA 04:42 → N03A 06:26 → N06A 12-03 17:24
PROVIDERS: ADMIT Specialist; ATTEND Specialist
PROC: 0BH17EZ Insertion of Endotracheal Airway into Trachea, Via Natural or Artificial Opening (ICD-10-PCS; principal; 2016-11-26)
PROC: 5A1945Z Respiratory Ventilation, 24-96 Consecutive Hours (ICD-10-PCS; 2016-11-26)
PROC: 5A09357 Assistance with Respiratory Ventilation, Less than 24 Consecutive Hours, Continuous Positive Airway Pressure (ICD-10-PCS; 2016-11-26)
DX: J96.21 Acute and chronic respiratory failure with hypoxia (principal); I21.4 Non-ST elevation (NSTEMI) myocardial infarction; J18.9 Pneumonia, unspecified organism; I13.0 Hypertensive heart and chronic kidney disease with heart failure and stage 1 through stage 4 chronic kidney disease, or unspecified chronic kidney disease; J44.0 Chronic obstructive pulmonary disease with (acute) lower respiratory infection; J84.10 Pulmonary fibrosis, unspecified; I50.32 Chronic diastolic (congestive) heart failure; N39.0 Urinary tract infection, site not specified; J44.1 Chronic obstructive pulmonary disease with (acute) exacerbation; J98.11 Atelectasis; Z99.81 Dependence on supplemental oxygen; I48.2 Chronic atrial fibrillation; N18.3 Chronic kidney disease, stage 3 (moderate); E03.9 Hypothyroidism, unspecified; J96.22 Acute and chronic respiratory failure with hypercapnia; I25.2 Old myocardial infarction; K59.00 Constipation, unspecified; E87.6 Hypokalemia; B95.2 Enterococcus as the cause of diseases classified elsewhere; G62.9 Polyneuropathy, unspecified; I25.10 Atherosclerotic heart disease of native coronary artery without angina pectoris; G89.29 Other chronic pain; F43.23 Adjustment disorder with mixed anxiety and depressed mood; J98.01 Acute bronchospasm; K21.9 Gastro-esophageal reflux disease without esophagitis; Z85.118 Personal history of other malignant neoplasm of bronchus and lung; Z92.3 Personal history of irradiation; Z92.21 Personal history of antineoplastic chemotherapy; Z87.891 Personal history of nicotine dependence; Z86.718 Personal history of other venous thrombosis and embolism; Z79.01 Long term (current) use of anticoagulants; Z88.1 Allergy status to other antibiotic agents; Z88.2 Allergy status to sulfonamides; Z88.0 Allergy status to penicillin; Z88.8 Allergy status to other drugs, medicaments and biological substances
CPT/HCPCS: 31500; 36600; 71010; 76937; 80048; 80053; 80076; 81001; 82550; 82552; 82805; 82948; 83605; 83735; 83880; 84100; 84484; 85025; 85027; 85610; 85730; 87040; 87077; 87086; 87186; 87641; 87804; 93005; 94002; 94003; 94150; 94640; 94664; 96374; 96375; 96376; J0360; J1956; J2060; J2250; J2270; J2405; J2765; J2920; J2930; J3010; J7050; J7613; J7644

== ENCOUNTER 2017-01-07 15:20 | Observation (INO) | payer MEDICARE, MEDICAID ==
[2017-01-07] VITALS (14 sets, daily range): BP systolic 119–181; BP diastolic 59–88; PULSE 70–90; RESP 14–19; TEMP 97.8–98.3; O2SAT 92–100
[~2017-01-07] VITALS: Ht 160 cm; Wt 80.0 kg
[~2017-01-07 15:20] MED LIST changes: +ASPI81TA81 PO; -Aspirin Chew CHEW; -CELE20TA PO; -CLON.5 PO; +CYMB30CA PO; +ENAL20TA PO; -LEVA500T PO; +LEXA20TA PO; +MELA5TAB15 PO; +MIRTA15 PO
--- NOTE | 2017-01-07 15:35 | PD ---
HPI . fall at SNF Chief Complaint: Fall Time Seen by Provider: 15:23 Travel History International Travel<30 days: No Contact w/Intl Traveler<30days: No Traveled to known affect area: No History of Present Illness HPI 71-year-old female with history of COPD, diabetes, major depressive disorder, hypothyroid, chronic heart disease, anxiety here via fire rescue secondary fall at the nursing facility. Patient has been in rehabilitation and somehow was in the bathroom screaming for help and unfortunately was not assisted in time and she fell back hitting her head. Initially patient had periods of confusion, but in transport returned her to her baseline level of functioning. There is a small hematoma on the back of her scalp. Patient tells me that she is not having any pain. On examination she has some abnormality with her left breast peau d' orange. She denies any problems with this breast, however it is warm to touch, slightly erythematous and hardened. She does have COPD and uses oxygen every day. Initially her O2 saturation was low, however after 3 L of oxygen via nasal cannula here in the ED she is now satting in the 93% or above. Patient goes on to tell me that she thinks she is bleeding from her "cootie." She tells me that there is no blood in her vagina at this moment, but she thinks that she may be bleeding from here. She denies any hematuria. She has no other complaints. PFSH Past Medical History Hx Anticoagulant Therapy: Yes (XARELTO) Arthritis: Yes (HANDS) Asthma: No Atrial Fibrillation: Yes Autoimmune Disease: No Blood Disorders: No Anxiety: Yes Depression: Yes Heart Rhythm Problems: Yes Cancer: Yes (HX LUNG CA) Cardiac Catheterization: Yes Cardiovascular Problems: Yes (HBP) High Cholesterol: No Chemotherapy: Yes (HX) Chest Pain: Yes Congestive Heart Failure: Yes COPD: Yes Cerebrovascular Accident: No Coronary Artery Disease: Yes Diabetes: No Diminished Hearing: No Endocrine: No Fibromyalgia: Yes Gastrointestinal Disorders: Yes GERD: Yes Glaucoma: No Genitourinary: No Headaches: Yes Hepatitis: No Hiatal Hernia: No Heparin Induced Thrombocytopen: No Hypertension: No Immune Disorder: No Implanted Vascular Access Dvce: No Kidney Stones: No Musculoskeletal: Yes Neurologic: No Psychiatric: Yes Reproductive: No Respiratory: Yes (COPD) Immunizations Current: Yes Migraines: No Myocardial Infarction: Yes (X2) Pneumonia: Yes Radiation Therapy: Yes Renal Failure: No Seizures: No Sickle Cell Disease: No Sleep Apnea: No Thyroid Disease: Yes Ulcer: No Menopausal: Yes : 1 Para: 1 Miscarriage: 0 : 0 Past Surgical History Abdominal Surgery: Yes AICD: No Arteriovenous Shunt: No Body Medical Devices: Neck stent Cardiac Surgery: No Section: No Cholecystectomy: Yes Ear Surgery: No Endocrine Surgery: No Eye Surgery: No Genitourinary Surgery: No Gynecologic Surgery: No Insulin Pump: No Joint Replacement: No Neurologic Surgery: No Oral Surgery: No Pacemaker: No Thoracic Surgery: No Other Surgery: Yes (POLYPS REMOVED FROM LARYNX; ENDOSCOPY) Social History Alcohol Use: No Tobacco Use: No Substance Use: No Allergies-Medications (Allergen,Severity, Reaction): Coded Allergies: Adhesives (Verified Allergy, Severe, RASK, 01/07/17) skin breakdown Calcium Channel Blockers (Verified Allergy, Severe, DIFFICULTY BREATHING, 01/07/17) Entex LA (Verified Allergy, Severe, Anaphylaxis, 01/07/17) Marcaine (Verified Allergy, Severe, DIFFICULTY BREATHING, 01/07/17) Minocin (Verified Allergy, Severe, DIFFICULTY BREATHING, 01/07/17) Nonsteroidal Anti-Inflammatory Agts (Verified Allergy, Severe, DIFFICULTY BREATHING, 01/07/17) PEANUTS (Verified Allergy, Severe, lips swelling, 01/07/17) Penicillin (Verified Allergy, Severe, DIFFICULTY BREATHING, 01/07/17) Prilosec (Verified Allergy, Severe, DIFFICULTY BREATHING, 01/07/17) Promethazine (Verified Allergy, Severe, DIFFICULTY BREATHING, 01/07/17) Sulfa (Verified Allergy, Severe, DIFFICULTY BREATHING, 01/07/17) Prednisone (Verified Allergy, Intermediate, rash and lips swell, 01/07/17) Zyrtec (Verified Allergy, Intermediate, rash, 01/07/17) Vancomycin (Verified Allergy, Mild, Flushing, 01/07/17) lips tingling Zyprexa (Verified Adverse Reaction, Severe, Severe vomiting., 01/07/17) Fluticasone (Verified Adverse Reaction, Intermediate, Rawness of the skin around the nose. Inhaled steroids do , 01/07/17) the same to her mouth. Omeprazole (Verified Adverse Reaction, Intermediate, [place] funny, 01/07/17) Zithromax (Verified Adverse Reaction, Intermediate, Says it made her jittery and it was harder to breathe. 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 Not sure would get same reaction to Injectable. Lian Huber MD. Jacob (Adverse Reaction, Severe, Caused amnesia and a fall. , 07/10/13) Reported Meds & Prescriptions Reported Meds & Active Scripts Active Hydrocodone-Acetaminophen 5-325 mg Tab 1 Tab PO Q6H PRN 14 Days Furosemide 20 Mg Tab 20 Mg PO DAILY Albuterol Neb (Albuterol Sulfate) 2.5 Mg/3 Ml Neb 2.5 Mg INH Q2HR NEB PRN Creon (Amylase/Lipase/Protease) 24,000-76,000-120,000 Units Cap 1 Cap PO TID Reported Milk of Magnesia Liq (Magnesium Hydroxide) 400 Mg/5 Ml Susp 30 Ml PO Q4HR PRN Xanax (Alprazolam) 0.5 Mg Tab 0.5 Mg PO Q4H PRN Seroquel (Quetiapine Fumarate) 100 Mg Tab 100 Mg PO TID Xarelto (Rivaroxaban) 20 Mg Tab 20 Mg PO DAILY Antacid Anti-Gas Regular Liq (Urutpsrh-Mfkoxyllt-Namooxpkxqp Liq) 200-200-20 Mg/ 5 Ml Susp 30 Ml PO Q8HR Loperamide (Loperamide HCl) 2 Mg Tablet 4 Mg PO INITIAL DOSE PRN After initial dose, give 1 tab (2mg) after each loose stool Not to exceed 8 tabs/24hrs Enema Disposable (Sodium Phosphates) 1 Jasmin Jasmin 1 Applic RECTAL DAILY PRN As needed if no results from Dulcolax Dulcolax Supp (Bisacodyl) 10 Mg Supp 10 Mg RECTAL DAILY PRN As needed if no results from Milk of Mag Tylenol (Acetaminophen) 325 Mg Tab 650 Mg PO Q4H PRN Duloxetine DR (Duloxetine HCl) 60 Mg Capdr 60 Mg PO DAILY Melatonin 3 Mg Tab 3 Mg PO HS Antacid II-Simethicone Liq (Mag Hydrox/Aluminum Hyd/Simeth) 360 Ml Oral.susp 30 Ml PO Q4HR PRN Aspir-81 (Aspirin) 81 Mg Tabdr 81 Mg PO DAILY Enalapril (Enalapril Maleate) 20 Mg Tab 20 Mg PO DAILY Metoprolol Tartrate 25 Mg Tab 25 Mg PO Q8HR Levothyroxine (Levothyroxine Sodium) 50 Mcg Tab 50 Mcg PO DAILY Zantac 150 Maximum Strength (Ranitidine HCl) 150 Mg Tab 150 Mg PO BID Potassium Chloride ER (Potassium Chloride) 10 Meq Cap 10 Meq PO DAILY Review of Systems General / Constitutional: No: Fever Eyes: No: Visual changes HENT: No: Headaches Cardiovascular: No: Chest Pain or Discomfort Respiratory: No: Shortness of Breath Gastrointestinal: No: Abdominal Pain Genitourinary: No: Dysuria Musculoskeletal: No: Pain Skin: Positive Breast Swelling (redness, and change in texture of skin ), No Rash Neurologic: Positive: Change in Mentation, No: Weakness Psychiatric: No: Depression Endocrine: No: Polydipsia Hematologic/Lymphatic: No: Easy Bruising Physical Exam Narrative GENERAL: AAO x 2, no acute distress, Well-nourished, well-developed patient. SKIN: Warm and dry. No visible rashes or bruising. Left breast with peau d' orange appearance, erythematous, warm to touch and firm, under left breast with erythema (intertrigo) HEAD: Normocephalic and atraumatic. EYES: No scleral icterus. No injection or drainage. EOM intact, PERRLA ENT: No nasal drainage noted. Mucous membranes pink. Airway patent. NECK: Supple, trachea midline. No JVD. no lymphadenopathy CARDIOVASCULAR: Regular rate and rhythm without murmurs, gallops, or rubs. RESPIRATORY: Breath sounds equally diminished. No accessory muscle use. no wheezing or rhonchi. GASTROINTESTINAL: Abdomen soft, non-tender, nondistended. EXTREMITIES: No cyanosis or edema. no tenderness to palpation of UE and LE BACK: Nontender without obvious deformity. No CVA tenderness. NEURO: communications scientist strength normal, slightly confused, PSYCH: AAO x 2, somewhat confused, Data Data Last Documented VS Vital Signs Date Time Temp Pulse Resp B/P Pulse Ox O2 Delivery O2 Flow Rate FiO2 01/07/17 15:41 99 Nasal Cannula 3 01/07/17 15:41 98.0 75 17 119/73 Orders Complete Blood Count With Diff (01/07/17 15:35) Comprehensive Metabolic Panel (01/07/17 15:35) Lactic Acid Sepsis Protocol (01/07/17 15:35) Urinalysis - C+S If Indicated (01/07/17 15:35) Blood Culture (01/07/17 15:35) Chest, Single Ap (01/07/17 15:35) Blood Glucose (01/07/17 15:35) Ecg Monitoring (01/07/17 15:35) Iv Access Insert/Monitor (01/07/17 15:35) Oximetry (01/07/17 15:35) Oxygen Administration (01/07/17 15:35) Ct Brain W/O Iv Contrast(Rout) (01/07/17 15:35) Place In Observation (01/07/17 ) Vital Signs (Adult) Q4H (01/07/17 17:20) Activity Oob With Assistance (01/07/17 17:20) Dog Behaviorist / Telemetry .CONTINUOUS (01/07/17 17:20) Diet 1800 Ada Cons Carb (01/07/17 Dinner) Sodium Chlor 0.9% 1000 Ml Inj (Ns 1000 M (01/07/17 17:20) Sodium Chloride 0.9% Flush (Ns Flush) (01/07/17 17:30) Sodium Chloride 0.9% Flush (Ns Flush) (01/07/17 21:00) Acetaminophen (Tylenol) (01/07/17 17:30) Ondansetron Inj (Zofran Inj) (01/07/17 17:30) Basic Metabolic Panel (Bmp) (01/08/17 06:00) Complete Blood Count With Diff (01/08/17 06:00) Scd Bilateral/Knee High KERWIN.BID (01/07/17 17:20) Naloxone Inj (Narcan Inj) (01/07/17 17:30) Docusate Sodium-Senna (Gwen-Colace) (01/07/17 21:00) Magnesium Hydroxide Liq (Milk Of Magnesi (01/07/17 17:30) Sennosides (Senokot) (01/07/17 17:30) Bisacodyl Supp (Dulcolax Supp) (01/07/17 17:30) Lactulose Liq (Lactulose Liq) (01/07/17 17:30) Consult Gynecology (01/07/17 ) Hgb & Hct (01/07/17 17:20) Hgb & Hct (01/07/17 23:20) Hgb & Hct (01/08/17 05:20) Hgb & Hct (01/08/17 11:20) Acetaminophen (Tylenol) (01/07/17 17:30) Albuterol Neb (Albuterol Neb) (01/07/17 17:30) Alprazolam (Xanax) (01/07/17 17:30) Al-Mag Hy-Si 40-40-4 Mg/Ml Liq (Mag-Al P (01/07/17 22:00) Aspirin Ec (Ecotrin Ec) (01/08/17 09:00) Bisacodyl Supp (Dulcolax Supp) (01/07/17 17:30) Duloxetine (Beka Powers) (01/08/17 09:00) Enalapril (Vasotec) (01/08/17 09:00) Furosemide (Lasix) (01/08/17 09:00) Acetamin-Hydrocod 325-5 Mg ([place] 5-325 (01/07/17 17:30) Levothyroxine (Synthroid) (01/08/17 09:00) Magnesium Hydroxide Liq (Milk Of Magnesi (01/07/17 17:30) Metoprolol Tartrate (Lopressor) (01/07/17 22:00) Qcvrvp-Ntzhce-Jegc 24-76-120 (Creon 24-7 (01/07/17 18:00) Potassium Chloride (Kcl) (01/08/17 09:00) Quetiapine (Seroquel) (01/07/17 18:00) (Nf) Loperamide Hcl (Loperamide) (01/07/17 17:30) (Nf) Mag Hydrox/Aluminum Hyd/Simeth (Ant (01/07/17 17:30) (Nf) Melatonin (01/07/17 21:00) (Nf) Ranitidine (Zantac 150 Maximum Stre (01/07/17 21:00) Blood Glucose Goal (Criteria) (01/07/17 17:33) Hypoglycemia 70 Mg/Dl Or < (01/07/17 17:33) Notify Dr: Other (01/07/17 17:33) Dextrose 50% In [place] (Vial) Inj (D50w (Vi (01/07/17 17:45) Glucagon Inj (Glucagon Inj) (01/07/17 17:45) Insulin Aspart Supplemtl Scale (Novolog (01/07/17 21:00) Admit Order (Ed Use Only) (01/07/17 17:30) Labs Laboratory Tests Test 01/07/17 01/07/17 16:00 16:20 White Blood Count 6.4 TH/MM3 Red Blood Count 2.59 MIL/MM3 Hemoglobin 7.5 GM/DL Hematocrit 23.9 % Mean Corpuscular Volume 92.2 FL Mean Corpuscular Hemoglobin 29.0 PG Mean Corpuscular Hemoglobin 31.5 % Concent Red Cell Distribution Width 17.8 % Platelet Count 122 TH/MM3 Mean Platelet Volume 7.5 FL Neutrophils (%) (Auto) 82.2 % Lymphocytes (%) (Auto) 5.6 % Monocytes (%) (Auto) 9.3 % Eosinophils (%) (Auto) 2.5 % Basophils (%) (Auto) 0.4 % Neutrophils # (Auto) 5.2 TH/MM3 Lymphocytes # (Auto) 0.4 TH/MM3 Monocytes # (Auto) 0.6 TH/MM3 Eosinophils # (Auto) 0.2 TH/MM3 Basophils # (Auto) 0.0 TH/MM3 CBC Comment DIFF FINAL Differential Comment Sodium Level 133 MEQ/L Potassium Level 4.1 MEQ/L Chloride Level 97 MEQ/L Carbon Dioxide Level 31.0 MEQ/L Anion Gap 5 MEQ/L Blood Urea Nitrogen 8 MG/DL Creatinine 0.75 MG/DL Estimat Glomerular Filtration 76 ML/MIN Rate Random Glucose 101 MG/DL Lactic Acid Level 1.5 mmol/L Calcium Level 8.0 MG/DL Total Bilirubin 0.4 MG/DL Aspartate Amino Transf 13 U/L (AST/SGOT) Alanine Aminotransferase 15 U/L (ALT/SGPT) Alkaline Phosphatase 60 U/L Total Protein 5.8 GM/DL Albumin 2.8 GM/DL Urine Color YELLOW Urine Turbidity HAZY Urine pH 7.5 Urine Specific [place] 1.041 Urine Protein 300 mg/dL Urine Glucose (UA) NEG mg/dL Urine Ketones NEG mg/dL Urine Occult Blood NEG Urine Nitrite NEG Urine Bilirubin NEG Urine Urobilinogen LESS THAN 2.0 MG/DL Urine Leukocyte Esterase NEG Urine WBC LESS THAN 1 /hpf Urine Amorphous Sediment RARE Urine Hyaline Casts 7 /lpf Urine Mucus FEW /lpf Microscopic Urinalysis Comment CATH-CULT NOT IND MDM Medical Decision Making Medical Screen Exam Complete: Yes Emergency Medical Condition: Yes Medical Record Reviewed: Yes Differential Diagnosis Closed head injury, fall, breast cellulitis, breast cancer, vaginal bleeding, GI bleed, scalp hematoma Narrative Course 71 yr old female here s/p fall. Patient had confusion on initial exam by paramedics. During her transport she returned to her baseline and was AAO x 3. During my initial examination patient was AAO 3, however she goes in and out of periods of confusion. She does have SOB on exam from her COPD and uses O2 regularly. She also reports some vaginal bleeding. Bedside guaiac negative. Labs, CXR, Ct of brain ordered. 1700: I reassess patient, she is somewhat confused and still uncertain about her current situation. I explained her that a CT scan of the brain is normal and she gazes off into space. Unfortunately I do not feel patient is a safe discharge with her periods of intermittent confusion. For this reason, I recommend admission for at least 23 hour observation. Additionally patient reports some vaginal bleeding, however we do not see any on examination at this moment. She does have a significant drop in her hemoglobin and hematocrit since her last labs were done here in November. Her baseline hemoglobin seems to be in the 10 range. Today she is at 7.5. Additionally on examination she has an abnormality with her left breast, this appears to be a possible cellulitis versus breast cancer versus her other. She is afebrile and lactic acid is normal. I do not suspect any sepsis and with the degree of abnormality it seems to be more chronic in nature. She also has some intertrigo that is clearing. Breast navigator consult placed for outpatient f/u. Ultimately, I recommend admission for her altered mental status. 1718: Discussed with Dr. Caputo, patient will be admitted to medicine, but will also require Heavy Duty Truck Mechanic consult. Call has been placed to Heavy Duty Truck Mechanic: 1754: Discussed with Dr. Trinidad: patient not actively bleeding. Can follow up outpatient. Discussed with my attending; we will transfuse patient. Orders have been placed. She can f/u outpatient for her vaginal bleeding issues. Diagnosis Primary Impression: Altered mental status Qualified Code: R41.82 - Altered mental status, unspecified altered mental status type Additional Impression: Anemia Qualified Code: D64.9 - Anemia, unspecified type Admitting Information Admitting Physician Requests: Admit Condition: Stable Erlinda Vargas Jan 07, 2017 15:35
[2017-01-07] MEDS ORDERED: LOPE2TAB21 PO (16:31)
[2017-01-07] MEDS ORDERED: XARE20TA PO (16:31)
[2017-01-07] MEDS ORDERED: MILKSUS PO (16:31)
[2017-01-07] MEDS ORDERED: ANTASUS13 PO (16:31)
[2017-01-07] MEDS ORDERED: DULO1CAP3 PO (16:31)
[2017-01-07] MEDS ORDERED: MELA0.02 PO (16:31)
[2017-01-07] MEDS ORDERED: ENEMENE5 RECTAL (16:31)
[2017-01-07] MEDS ORDERED: ALPR.5 PO (16:31)
[2017-01-07] MEDS ORDERED: TYLE325T PO (16:31)
[2017-01-07] MEDS ORDERED: SERO100T PO (16:31)
[2017-01-07] MEDS ORDERED: DULC10SU3 RECTAL (16:31)
[2017-01-07] MEDS ORDERED: [UNRECOGNIZED DRUG - CODE] PO (16:31)
--- NOTE | 2017-01-07 16:32 | RADRPT ---
EXAM DATE/TIME: 01/07/2017 15:55 [facility] COMPARISON: No previous studies available for comparison. INDICATIONS : Back pain, fall, decreased breath sounds MEDICAL HISTORY : Hypertension. Chronic obstructive pulmonary disease. SURGICAL HISTORY : Stents ENCOUNTER: Initial ACUITY: 1 day PAIN SCORE: Non-responsive. LOCATION: Bilateral chest FINDINGS: A single view of the chest demonstrates stable opacification of right hemithorax. Minimal left basal atelectasis. No pneumothorax. Vascular stent present in the upper mediastinum. CONCLUSION: 1. Stable opacification of right hemithorax since December 01. Minimal left basilar opacity, probably atel ectasis. Kavin Pak MD on January 07, 2017 at 16:24 Board Certified Radiologist. This report was verified electronically.
[2017-01-07 16:46] LABS: BLOOD, URINE NEG (NEG); COMMENT (UR) CATH-CULT NOT IND; CULTURE IF INDICATED CATH CULTURE NOT IND; GLUCOSE,URINE NEG (NEG); HYALINE CAST, URINE 7 /lpf (RARE); KETONE, URINE NEG (NEG); MUCUS URINE FEW /lpf (OCC); NITRITE,URINE NEG (NEG); PH, URINE 7.5 (5.0-8.5); URINE COLOR YELLOW (YELLW/STRAW)
[2017-01-07 16:46] LABS: AUTOMATED NEUTROPHIL # 5.2 TH/MM3 (1.8-7.7); BASOPHIL % 0.4 % (0.0-2.0); EOSINOPHIL # 0.2 TH/MM3 (0-0.4); EOSINOPHIL % 2.5 % (0.0-4.0); HEMATOCRIT 23.9 % (35.0-46.0); HEMO FLAGS DIFF FINAL; LYMPH % 5.6 % (9.0-44.0); LYMPHOCYTE # 0.4 TH/MM3 (1.0-4.8); MEAN CELL VOLUME 92.2 FL (80.0-100.0); MEAN CORPUSCULAR HGB CONC 31.5 % (32.0-36.0); MONO % 9.3 % (0.0-8.0); NEUT % 82.2 % (16.0-70.0); PLATELET COUNT 122 TH/MM3 (150-450); RED BLOOD COUNT 2.59 MIL/MM3 (4.00-5.30); RED CELL DISTRIBUTION WIDTH 17.8 % (11.6-17.2); WHITE BLOOD COUNT 6.4 TH/MM3 (4.0-11.0)
--- NOTE | 2017-01-07 16:50 | RADRPT ---
EXAM DATE/TIME: 01/07/2017 16:30 [place] COMPARISON: No previous studies available for comparison. INDICATIONS : Evaluate head for injury. RADIATION DOSE: 56.38 CTDIvol (mGy) MEDICAL HISTORY : Cardiovascular disease. Congestive heart failure. Carcinoma, lung.AFIB SURGICAL HISTORY : Cholecystectomy. ENCOUNTER: Initial ACUITY: 1 day PAIN SCALE: 4/10 LOCATION: Left cranial region. TECHNIQUE: Multiple contiguous axial images were obtained of the head. Using automated exposure control and adj ustment of the mA and/or kV according to patient size, radiation dose was kept as low as reasonably a chievable to obtain optimal diagnostic quality images. DICOM format image data is available electro nically for review and comparison. FINDINGS: CEREBRUM: The ventricles are normal for age. No evidence of midline shift, mass lesion, hemorrhage or acute in farction. No extra-axial fluid collections are seen. POSTERIOR FOSSA: The cerebellum and brainstem are intact. The 4th ventricle is midline. The cerebellopontine angle i s unremarkable. EXTRACRANIAL: The visualized portion of the orbits is intact. SKULL: The calvaria is intact. No evidence of skull fracture. CONCLUSION: Normal examination for a patient of this age. No significant change has occurred. Kavin Pak MD on January 07, 2017 at 16:45 Board Certified Radiologist. This report was verified electronically.
[2017-01-07 17:03] LABS: ANION GAP 5 MEQ/L (5-15); AST (GOT) 13 U/L (15-37); BLOOD UREA NITROGEN 8 MG/DL (7-18); CHLORIDE 97 MEQ/L (98-107); GLOMERULAR FILTRATION RATE 76 ML/MIN (>89); POTASSIUM 4.1 MEQ/L (3.5-5.1); SODIUM (NA) 133 MEQ/L (136-145)
[2017-01-07 17:04] LABS: ALT (GPT) 15 U/L (10-53)
[2017-01-07 17:06] LABS: ALKALINE PHOSPHATASE 60 U/L (45-117); TOTAL BILIRUBIN ADULT 0.4 MG/DL (0.2-1.0)
[2017-01-07] MEDS ORDERED: NALOXONE HCL 0.4 MG/ML AMP IV PRN (17:30)
[2017-01-07] MEDS ORDERED: LACTULOSE SYRUP 20 GM/30 ML CUP PO PRN (17:30)
[2017-01-07] MEDS ORDERED: MAG HYDROX PO PRN (17:30)
[2017-01-07] MEDS ORDERED: RESP: ALBUTEROL 2.5 MG/3 ML NEB (PRN) INH (17:30)
[2017-01-07] MEDS ORDERED: BISACODYL 10 MG SUPP RECTAL PRN ×2 (17:30)
[2017-01-07] MEDS ORDERED: ALPRAZolam 0.5 MG TAB PO PRN (17:30)
[2017-01-07] MEDS ORDERED: MAGNESIUM HYDROXIDE SUSP 30 ML CUP PO PRN ×2 (17:30)
[2017-01-07] MEDS ORDERED: ONDANSETRON HCL 4 MG/2 ML VIAL IVP PRN (17:30)
[2017-01-07] MEDS ORDERED: ACETAMINOPHEN 325 MG TAB PO PRN ×2 (17:30)
[2017-01-07] MEDS ORDERED: SIMETH PO PRN (17:30)
[2017-01-07] MEDS ORDERED: SODIUM CHLORIDE 0.9% FLUSH 10 ML FLUSH IV FLUSH PRN (17:30)
[2017-01-07] MEDS ORDERED: ALUMINUM HYD PO PRN (17:30)
[2017-01-07] MEDS ORDERED: SENNOSIDES 8.6 MG TAB PO PRN (17:30)
[2017-01-07] MEDS ORDERED: DEXTROSE 50% IN WATER 50 ML VIAL(D50) IV PRN (17:45)
[2017-01-07] MEDS ORDERED: GLUCAGON 1 MG/ML VIAL OTHER PRN (17:45)
[2017-01-07] MEDS ORDERED: SODIUM CHLOR 0.9% 250 ML INJ 250 ML IV ONE (18:00)
[2017-01-07] MEDS: LIPASE/PROTEASE/AMYLASE (24,000/76,000/120,000) CAP PO SCH (18:00)
--- NOTE | 2017-01-07 20:20 | MH ---
cc: JOSE ALEJANDROMANFRED DATE OF ADMISSION: 01/07/2017 DATE OF : 1945. REASON FOR ADMISSION: Altered mental status and fall at [facility]. TRAVEL IN THE LAST THIRTY DAYS: None. HISTORY OF PRESENT ILLNESS: This is a pleasant 71-year-old white female who was recently discharged from [facility] approximately a month ago and sent to [facility] for rehabilitation. According to the record, the patient had been in rehabilitation and had been doing fairly well but was in the bathroom calling for some help and no one heard her. She tried to get up by herself and lost her balance and fell backwards hitting the back of her head. She has a contusion on the mid right outer aspect of her scalp on the back of her head. It is still oozing bright red blood but minimal amounts. It is a small hematoma contusion on the mid right side. The patient also is noted to have some altered mental status which currently could be related to her chronic anxiety. The patient does not remember what happened to her but notes that she is at [facility] and is oriented to person. According to the record, the patient had a low oxygen saturation initially. She was placed on three liters nasal cannula and now is satting 93%. The patient also noted initially that she had been having some vaginal bleeding. She currently tells me that she is not having any, but then finally admitted that she noted some approximately a week ago. The patient is on Xarelto. She also has a red rash which looks like a sunburn or a heat rash under her left breast. The patient currently denies any headache. She is awake but pleasantly confused. She does have exertional dizziness and end-stage COPD, major depressive disorder and extreme anxiety. The patient also states that she has had some nausea and vomiting off and on but when she vomits, it is a clear liquid consistency. She has also noted some diarrhea for the past two days but no constipation. PAST MEDICAL HISTORY: According to the record and the patient: 1. Osteoarthritis. 2. Atrial fibrillation. The patient has been on Xarelto. 3. COPD. 4. History of cancer of the lung. 5. High blood pressure. 6. Congestive heart failure. 7. Coronary artery disease. 8. GI disorders. 9. Gastroesophageal reflux disease (GERD). 10. Headaches. 11. Major anxiety disorder. 12. Psychiatric issues, major depressive disorder. 13. Thyroid disease. 14. Generalized weakness and debility. PAST SURGICAL HISTORY: 1. Chemotherapy. 2. Neck stent which is probably a carotid stent. 3. Cholecystectomy. 4. Polyps removed from her larynx. 5. Endoscopy. 6. Abdominal surgery. 7. There may be more, but this is according to the record right now. CODED ALLERGIES: 1. ADHESIVES. 2. CALCIUM CHANNEL BLOCKERS. 3. ENTEX. 4. MARCAINE. 5. MINOCIN. 6. ANTIINFLAMMATORY AGENTS. 7. PEANUTS. 8. PENICILLIN. 9. PRILOSEC. 10. PROMETHAZINE. 11. SULFA. 12. PREDNISONE. 13. ZYRTEC. 14. VANCOMYCIN. 15. ZYPREXA. 16. FLUCONAZOLE. 17. OMEPRAZOLE. 18. ZITHROMAX. 19. ESBL. 20. E. COLI IN HER URINE, so we will need to do probable isolation. UNCODED ALLERGIES: 1. RACEMIC EPINEPHRINE INHALANT. 2. KLONOPIN. CURRENT ACTIVES MEDICATIONS: 1. Hydrocodone. 2. Lasix. 3. Albuterol. 4. Creon. 5. Milk of magnesia. 6. Xanax. 7. Seroquel. 8. Xarelto. 9. Antacids. 10. Loperamide. 11. Fleet enema. 12. Dulcolax. 13. Tylenol. 14. Duloxetine. 15. Melatonin. 16. Antacids. 17. Aspirin. 18. Enalapril. 19. Metoprolol. 20. Thyroxine. 21. Zantac. 22. Potassium. REVIEW OF SYSTEMS: A limited review of systems due to the patient's pleasant but altered mental status. Most of the information has been obtained from the record except what has been noted in the history of present illness. PHYSICAL EXAMINATION: VITAL SIGNS: 98, pulse 86, respirations 16 to 20, blood pressure 154/79, has been as low at 119/73, 02 saturation 99% to 100% nasal cannula at three liters. GENERAL: An elderly white female looks to be her stated age resting in the bed. She is awake, responding to verbal stimuli but states that she cannot remember what happened to her this afternoon but can carry on a fairly decent conversation. SKIN: Pale, warm and dry. She does have a hematoma/contusion on the back of the right side of her head that is oozing small amounts of blood. HEAD, EYES, EARS, NOSE, THROAT: Traumatic injury status post fall. Normocephalic. Pupils equal, round and reactive to light and accommodation. Speech is clear. No scleral icterus. NECK: The neck is supple. CARDIOVASCULAR: Irregular rate and rhythm but her rate is controlled. Heart sounds are distant but no murmurs, rubs or gallops audible. RESPIRATORY: Diminished breath sounds anteriorly and posteriorly with mild expiratory wheeze and a little rhonchi. She does have bibasilar diminished breath sounds. ABDOMEN; Round, soft, nontender and nondistended. Bowel sounds are active. EXTREMITIES: Trace to 1+ lower extremity edema. She has bilateral hammer toes on her great toe, left and right foot. Extremities are warm. NEUROLOGIC: Altered mental status with pleasant confusion. 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 PSYCHIATRIC: Still has mild confusion. Does not remember what happened but remembers where she is and remembers people. DIAGNOSTIC DATA: White blood cell count 6.4, RBCs 2.59, hemoglobin 7.5, hematocrit 23.9. Platelet count 122,000. Neutrophil count 82.2. Chemistries: Sodium 133, potassium 4.1, chloride 97, carbon dioxide 31, anion gap 5, BUN 8, creatinine 0.75, GFR 76, calcium is 8, lactic acid is 1.5, albumin 2.8, total protein 5.8, AST 13. Her urine is yellow, hazy, pH is 7.5, specific gravity 1.041, 300 protein, negative glucose, ketones, occult blood, nitrites, bilirubin and leukocyte esterase. Cathed culture is not needed. Chest x-ray does show some stable calcification of the right hemithorax, minimal left basilar opacity, probably atelectasis. CT of the head is a normal exam for someone of this age. ASSESSMENT AND PLAN: 1. Altered mental status. 2. Fall. 3. Hematoma to the back of the head, right side. 4. Recent history of vaginal bleeding. 5. Constipation. 6. Adjustment disorder with mixed anxiety and depressed mood. 7. History of major depressive disorder. 8. History of diverticulosis. 9. COPD. 10. Chronic kidney disease. 11. Hypertension. 12. Generalized weakness and debility. PLAN: 1. Admit. 2. Will monitor her labs. 3. Will put a dressing on the back of her head. 4. Monitor for any change in her altered mental status. 5. Blood cultures are pending. 6. Bowel regimen has been ordered. 7. Home medications have been reconciled as needed. 8. SCDs. 9. 1800 calorie ADA diet. 10. Activity will be bed rest but out of bed only with assistance. 11. We placed her in observation. 12. Peptic ulcer disease prophylaxis with Xanax. 13. She is back on her Seroquel. 14. Anxiety medication PRN. 15. Will continue her aspirin. 16. She will have IV fluids for gentle hydration. 17. Xanax for her anxiety. 18. Mild pain management. 19. The patient has an order for red blood cells type and screen and administration of some packed blood cells tonight based on her hemoglobin and her symptomatic dizziness or altered mental status and fall. 20. Sliding scale insulin. 21. The patient is full code. Full aggressive care. 22. Will get case management involved for her discharge planning when she is stable. 23. She would like to go back to [facility] or a facility who can assist with her care. Dictated by CINDY Reardon. Manfred Caputo MD JP/RAOUL /7:03 PM /7:56 PM pt evaluation was done as above on day of admission chart was reviewed including meds labs and rad data notes were reviewed dw cardiology dw rn plan of care was sushil mcgraw in detail as above MTDD
[2017-01-07] MEDS: MELATONIN 5 MG TAB PO SCH (21:00)
[2017-01-07] MEDS: INSULIN ASPART SUPPLEMENTAL SCALE SQ SCH (21:00)
[2017-01-07] MEDS: ALUMINUM/MAGNESIUM/SIMETH 30 ML CUP PO SCH (22:00)
[2017-01-08] VITALS (9 sets, daily range): BP systolic 144–167; BP diastolic 70–86; PULSE 74–87; RESP 18–20; TEMP 97.8–98.2; O2SAT 94–100
[2017-01-08] MEDS: ALPRAZolam 0.5 MG TAB PO PRN ×3 (00:36→18:18)
[2017-01-08] MEDS: METOPROLOL TARTRATE 25 MG TAB PO SCH ×4 (00:36→21:25)
[2017-01-08] MEDS: SODIUM CHLOR 0.9% 1000 ML INJ 1,000 ML IV SCH ×2 (00:37→13:20)
[2017-01-08] MEDS: RESP: ALBUTEROL 2.5 MG/3 ML NEB (PRN) INH ×4 (01:02→21:15)
[2017-01-08] MEDS: QUEtiapine FUMARATE 100 MG TAB PO SCH ×4 (01:03→17:42)
[2017-01-08] MEDS: DOCUSATE SODIUM 50 MG/SENNA 8.6 MG TAB PO SCH ×3 (01:17→21:00)
[2017-01-08] MEDS: FAMOTIDINE 20 MG TAB PO SCH ×3 (01:17→21:25)
[2017-01-08] MEDS: ALUMINUM/MAGNESIUM/SIMETH 30 ML CUP PO SCH ×3 (06:23→21:30)
[2017-01-08] MEDS: LEVOTHYROXINE SODIUM 50 MCG TAB PO SCH (06:23)
[2017-01-08] MEDS: SODIUM CHLORIDE 0.9% FLUSH 10 ML FLUSH IV FLUSH SCH ×3 (06:24→21:25)
[2017-01-08] MEDS: INSULIN ASPART SUPPLEMENTAL SCALE SQ SCH ×4 (06:44→21:00)
--- NOTE | 2017-01-08 07:48 | HHI.PR ---
Subjective Remarks resting in bed, awake states bad night with anxiety stool X 1 , loose denies any vaginal bleeding, she she was confused. hematoma/laceration back of head/no bleeding now (Brionna Fuentes) Objective Objective Results - Vital Signs Date Time Temp Pulse Resp B/P Pulse Ox O2 Delivery O2 Flow Rate FiO2 01/08/17 07:37 97.8 87 20 147/86 100 01/08/17 00:42 98.2 18 152/86 01/07/17 23:13 98.3 89 18 181/86 97 01/07/17 21:40 98.1 88 18 144/85 95 01/07/17 21:27 78 01/07/17 21:24 88 18 144/85 92 01/07/17 21:18 97.8 80 18 150/80 100 01/07/17 21:01 97.9 83 18 151/82 01/07/17 19:26 97.9 83 18 151/82 100 01/07/17 18:00 86 19 154/79 100 Nasal Cannula 3.0 01/07/17 17:50 86 16 167/88 99 Nasal Cannula 2 01/07/17 17:45 86 18 134/78 99 Nasal Cannula 3.0 01/07/17 16:00 70 18 126/59 99 Nasal Cannula 3.0 01/07/17 15:41 99 Nasal Cannula 3 01/07/17 15:41 98.0 75 17 119/73 99 Nasal Cannula 3 01/07/17 15:40 99 Nasal Cannula 3 01/07/17 15:40 99 Nasal Cannula 3 01/07/17 15:34 90 14 119/73 I/O 01/07/17 01/07/17 01/07/17 01/08/17 01/08/17 01/08/17 07:00 15:00 23:00 07:00 15:00 23:00 Intake Total 200 ml 200 ml 200 ml Output Total 400 ml 100 ml Balance -200 ml 100 ml 200 ml Intake Oral 200 ml 200 ml 200 ml Output Urine Total 400 ml Stool Total 100 ml # Bowel Movements 1 (Brionna Fuentes) Result Diagram: 01/07/17 1600 01/07/17 1600 ROS General: Fatigue, Weakness, Other (10 point ROS done positives noted) HEENT: Other (hematoma and laceration to the back of the head not bleeding) GI: BM (BM loose ends 1) Neuro/MS: Confusion (mild but improving, seems to be back to her baseline), Other (anxiety acute on chronic) (Brionna Fuentes) Physical Exam Physical Exam PHYSICAL EXAMINATION GENERAL: This is a obese elderly female who appears to be in no acute distress. She is alert and awake, states mild anxiety HEAD: Mid posterior hematoma with small laceration traumatic/ no active bleeding OROPHARYNGEAL: Oropharynx clear NECK: Supple. CARDIAC: Regular rhythm, regular rate, S1 and S2 are heard. LUNGS: Low volumes and some diminished sounds posteriorly mid to lower bases. No acute wheezing or rhonchi ABDOMEN: Soft, nontender, round, obese EXTREMITIES: no edema. Pulses equal bilateral. NEUROLOGICAL: Patient mood and affect appropriate with mild anxiety SKIN:Warm and moist (Brionna Fuentes) A/P Assessment and Plan 1. Altered mental status. 2. Fall. 3. Hematoma to the back of the head, right side. 4. Recent history of vaginal bleeding. 5. Constipation. 6. Adjustment disorder with mixed anxiety and depressed mood. 7. History of major depressive disorder. 8. History of diverticulosis. 9. COPD. 10. Chronic kidney disease. 11. Hypertension. 12. Generalized weakness and debility. 13. Anemia, vital signs reviewed , normal trends labs reviewed, CBC , BMP pending this am. Anemia, low value this past p.m.. Patient received 1 unit of blood, labs are pending today. She did have a scalp wound and laceration of acute blood loss. We will monitor, lab pending Altered mental status seems to be improving, strength questions appropriately, anxiety persist Fall with injury to the mid posterior aspect of her head, no bleeding noted, no dressing for now open to air, has golfball size hematoma, will monitor size and mental status Initially patient stated recent vaginal bleeding, but is currently denying any problems. His been no leading noted since she's been here. 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 COPD, seems to be controlled for now will order O2, dual nebs when necessary, medical management with her medications. Comorbidities of hypertension and chronic kidney disease will be monitored with medical management Generalized weakness and debility is an acute on chronic problem. She came from [facility]. We'll order physical therapy to janet and get her up and monitor any symptoms of dizziness or weakness. Bowel regimen, soft loose stools, patient requested Mylanta. Ordered as needed DVT prophylaxis PUD prophylaxis Discussed with nurse Discussed with Dr. Caputo seen on his behalf Discussed with patient, supportive care (Brionna Fuentes) Assessment and Plan Patient seen and examined as above Dr. Tapia her PCP is bedside Labs medications reviewed Discussed with patient Plan of care discussed with MANAGER PATHOLOGY Increase activity out of bed Discussed with RN (Alistair Caputo MD) Brionna Fuentes Jan 08, 2017 07:48 Alistair Caputo MD Jan 08, 2017 15:02
[2017-01-08] MEDS ORDERED: LOPERAMIDE HCL 2 MG CAP PO PRN ×2 (08:00)
[2017-01-08] MEDS ORDERED: ALUMINUM/MAGNESIUM/SIMETH 30 ML CUP PO PRN (08:45)
[2017-01-08] MEDS ORDERED: PNEUMOCOCCAL POLYVALENT INJ 25 MCG/0.5 ML SYR IM ONE (09:00)
[2017-01-08] MEDS: ASPIRIN EC 81 MG TABEC PO SCH (09:25)
[2017-01-08] MEDS: DULoxetine HCl DR 60 MG CAP PO SCH (09:25)
[2017-01-08] MEDS: POTASSIUM CHLORIDE 10 MEQ CAP PO SCH (09:25)
[2017-01-08] MEDS: LIPASE/PROTEASE/AMYLASE (24,000/76,000/120,000) CAP PO SCH ×3 (09:26→17:42)
[2017-01-08] MEDS: FUROSEMIDE 20 MG TAB PO SCH (09:26)
[2017-01-08] MEDS: ENALAPRIL MALEATE 10 MG TAB PO SCH (09:26)
[2017-01-08 11:43] LABS: AUTOMATED NEUTROPHIL # 5.6 TH/MM3 (1.8-7.7); BASOPHIL % 0.4 % (0.0-2.0); EOSINOPHIL # 0.1 TH/MM3 (0-0.4); EOSINOPHIL % 1.4 % (0.0-4.0); HEMATOCRIT 29.9 % (35.0-46.0); HEMO FLAGS DIFF FINAL; LYMPH % 8.1 % (9.0-44.0); LYMPHOCYTE # 0.6 TH/MM3 (1.0-4.8); MEAN CELL VOLUME 89.8 FL (80.0-100.0); MEAN CORPUSCULAR HEMOGLOBIN 29.5 PG (27.0-34.0); MEAN CORPUSCULAR HGB CONC 32.8 % (32.0-36.0); NEUT % 81.1 % (16.0-70.0); PLATELET COUNT 140 TH/MM3 (150-450); RED BLOOD COUNT 3.24 MIL/MM3 (4.00-5.30); RED CELL DISTRIBUTION WIDTH 17.4 % (11.6-17.2); REVIEW FLAG FINAL; WHITE BLOOD COUNT 6.9 TH/MM3 (4.0-11.0)
[2017-01-08 12:15] LABS: BICARBONATE 30.6 MEQ/L (21.0-32.0); POTASSIUM 4.7 MEQ/L (3.5-5.1)
[2017-01-08] MEDS: MELATONIN 5 MG TAB PO SCH (21:24)
[2017-01-09] VITALS (12 sets, daily range): BP systolic 140–183; BP diastolic 64–99; PULSE 54–92; RESP 16–20; TEMP 96.8–98.2; O2SAT 91–97
[2017-01-09] MEDS: ALUMINUM/MAGNESIUM/SIMETH 30 ML CUP PO SCH ×5 (02:03→22:43)
[2017-01-09] MEDS: ALPRAZolam 0.5 MG TAB PO PRN ×3 (02:15→15:30)
[2017-01-09] MEDS: ACETAMINOPHEN/HYDROcodone 325 MG/5 MG TAB PO PRN ×2 (03:02→10:45)
[2017-01-09] MEDS: RESP: ALBUTEROL 2.5 MG/3 ML NEB (PRN) INH ×4 (03:43→23:03)
[2017-01-09] MEDS: METOPROLOL TARTRATE 25 MG TAB PO SCH ×3 (06:49→22:00)
[2017-01-09] MEDS: LEVOTHYROXINE SODIUM 50 MCG TAB PO SCH (06:49)
[2017-01-09] MEDS: INSULIN ASPART SUPPLEMENTAL SCALE SQ SCH ×4 (06:51→21:00)
--- NOTE | 2017-01-09 07:40 | HHI.PR ---
Subjective Remarks resting in bed, awake anxiety acute on chronic denies any vaginal bleeding hematoma/laceration back of head/no bleeding now, improved Objective Objective Results - Vital Signs Date Time Temp Pulse Resp B/P Pulse Ox O2 Delivery O2 Flow Rate FiO2 01/09/17 04:24 98.1 85 20 140/75 93 01/09/17 03:02 92 01/09/17 00:05 98.2 87 18 142/78 94 01/08/17 21:08 94 Nasal Cannula 3.00 01/08/17 21:07 98.2 85 18 144/70 95 01/08/17 20:00 84 01/08/17 19:00 Nasal Cannula 3.00 01/08/17 16:54 95 Nasal Cannula 3.00 21 01/08/17 15:21 97.8 74 18 167/80 95 01/08/17 14:31 81 01/08/17 11:37 97.8 85 18 148/77 97 01/08/17 09:00 96 Nasal Cannula 4.00 I/O 01/08/17 01/08/17 01/08/17 01/09/17 01/09/17 01/09/17 07:00 15:00 23:00 07:00 15:00 23:00 Intake Total 200 ml 200 ml 25 ml Output Total 100 ml Balance 100 ml 200 ml 25 ml Intake Oral 200 ml 200 ml 25 ml Stool Total 100 ml # Voids 3 1 # Bowel Movements 1 12 Result Diagram: 01/08/17 1128 01/08/17 1128 Other Results Last Impressions Head CT 01/07/17 1535 Signed Impressions: Service Date/Time: Saturday, January 07, 2017 16:30 - CONCLUSION: Normal examination for a patient of this age. No significant change has occurred. Kavin Pak MD Chest X-Ray 01/07/17 1535 Signed Impressions: Service Date/Time: Saturday, January 07, 2017 15:55 - CONCLUSION: 1. Stable opacification of right hemithorax since December 01. Minimal left basilar opacity, probably atelectasis. Kavin Pak MD Medications and IVs Administered Medications Medications (Trade) Dose Ordered Sig/Lorie Route PRN Reason Start Time Stop Time Status Last Admin Dose Admin Sodium Chloride (NS 1000 ml Inj) 1,000 ml @ 50 mls/hr Q20H IV 01/07/17 17:20 01/08/17 00:37 Sodium Chloride (NS Flush) 2 ml BID IV FLUSH 01/07/17 21:00 01/08/17 21:25 Senna/Docusate Sodium (Gwen-Colace) 1 tab BID PO 01/07/17 21:00 01/08/17 01:17 Al Hydrox/Mg Hydrox/Simethicone (Mag-Al Plus Susp Liq) 30 ml Q8HR PO 01/07/17 22:00 01/09/17 06:47 Aspirin (Ecotrin Ec) 81 mg DAILY PO 01/08/17 09:00 01/08/17 09:25 Duloxetine HCl (Cymbalta Dr) 60 mg DAILY PO 01/08/17 09:00 01/08/17 09:25 Enalapril Maleate (Vasotec) 20 mg DAILY PO 01/08/17 09:00 01/08/17 09:26 Furosemide (Lasix) 20 mg DAILY PO 01/08/17 09:00 01/08/17 09:26 Acetaminophen/ Hydrocodone Bitart (Mcbee 5-325 Mg) 1 tab Q6H PRN PO PAIN 01/07/17 17:30 01/09/17 03:02 Levothyroxine Sodium (Synthroid) 50 mcg DAILY@07 PO 01/08/17 07:00 01/09/17 06:49 Metoprolol Tartrate (Lopressor) 25 mg Q8HR PO 01/07/17 22:00 01/09/17 06:49 Amylase/Lipase/ Protease (Creon 2476-120) 1 cap TID PO 01/07/17 18:00 01/08/17 17:42 Potassium Chloride (KCl) 10 meq DAILY PO 01/08/17 09:00 01/08/17 09:25 Quetiapine Fumarate (SEROquel) 100 mg TID PO 01/07/17 18:00 01/08/17 17:42 Melatonin (Melatonin) 5 mg HS PO 01/07/17 21:00 01/08/17 21:24 Famotidine (Pepcid) 20 mg BID PO 01/07/17 21:00 01/08/17 21:25 Alprazolam (Xanax) 0.5 mg Q6H PRN PO ANXIETY 01/08/17 00:15 01/09/17 02:15 ROS General: Fatigue, Weakness Pulmonary: Cough (occ), SOB (chronic) GI: BM Neuro/MS: Confusion (back to baseline) Skin: Rash (lt. breast) Physical Exam Physical Exam PHYSICAL EXAMINATION GENERAL: This is an obese female anxious. She is alert and awake, HEAD: Normocephalic, hematoma to back of head improved OROPHARYNGEAL: Oropharynx without erythema or edema. NECK: Supple. Trachea midline without deviation. CARDIAC: Regular rhythm, regular rate, S1 and S2 are heard. LUNGS: Diminished to auscultation bilaterally. ABDOMEN: Soft, nontender, obese, EXTREMITIES: trace edema. Pulses equal bilateral. great toes, hammer NEUROLOGICAL: Patient mood and affect anxious. No focal deficit SKIN:Warm and moist A/P Assessment and Plan 1. Altered mental status. 2. Fall. 3. Hematoma to the back of the head, right side. 4. Recent history of vaginal bleeding. 5. Constipation. 6. Adjustment disorder with mixed anxiety and depressed mood. 7. History of major depressive disorder. 8. History of diverticulosis. 9. COPD. 10. Chronic kidney disease. 11. Hypertension. 12. Generalized weakness and debility. 13. Anemia, 14. Chronic fungal skin rash, lt. breast vital signs reviewed , normal trends labs reviewed, Anemia, low value this past p.m.. Patient received 1 unit of blood, scalp wound and laceration of acute blood loss, decreased in size. Improved. Altered mental status seems to be improving, strength questions appropriately, anxiety persist, back to baseline Fall with injury to the mid posterior aspect of her head, decreased in size, healing vaginal bleeding, but is currently denying any problems. None seen this am COPD, seems to be controlled for now will order O2, dual nebs when necessary, medical management with her medications. Comorbidities of hypertension and chronic kidney disease will be monitored with medical management Generalized weakness and debility is an acute on chronic problem. She came from [facility], would like to transition to another facility. CM assisted, pt. will need to request change when she returns to the facility. Recommend she speak to her son to assist her and know her wishes. Bowel regimen, soft loose stools, patient requested Mylanta. Ordered as needed Nystatin powder ordered for chronic itch, heat rash., probable fungal. Chronic on adm. noted. DVT prophylaxis, refusing to wear SCDs PUD prophylaxis DC possible today if facility can recieve. 3308 on chart Discussed with nurse Discussed with Dr. Caputo seen on his behalf Discussed with patient, supportive care Brionna Fuentes Jan 09, 2017 07:40
[2017-01-09] MEDS: SODIUM CHLORIDE 0.9% FLUSH 10 ML FLUSH IV FLUSH SCH ×2 (09:00→21:00)
[2017-01-09] MEDS: FAMOTIDINE 20 MG TAB PO SCH ×3 (09:02→22:43)
[2017-01-09] MEDS: QUEtiapine FUMARATE 100 MG TAB PO SCH ×3 (09:02→17:47)
[2017-01-09] MEDS: ASPIRIN EC 81 MG TABEC PO SCH (09:02)
[2017-01-09] MEDS: FUROSEMIDE 20 MG TAB PO SCH (09:02)
[2017-01-09] MEDS: LIPASE/PROTEASE/AMYLASE (24,000/76,000/120,000) CAP PO SCH ×3 (09:02→17:47)
[2017-01-09] MEDS: DULoxetine HCl DR 60 MG CAP PO SCH (09:02)
[2017-01-09] MEDS: ENALAPRIL MALEATE 10 MG TAB PO SCH (09:03)
[2017-01-09] MEDS: DOCUSATE SODIUM 50 MG/SENNA 8.6 MG TAB PO SCH ×2 (09:03→22:00)
[2017-01-09] MEDS: POTASSIUM CHLORIDE 10 MEQ CAP PO SCH (09:03)
[2017-01-09] MEDS: SODIUM CHLOR 0.9% 1000 ML INJ 1,000 ML IV SCH ×2 (10:44→15:57)
[2017-01-09] MEDS: NYSTATIN 100,000 U/GM PWD 15 GM BTL TOPICAL SCH ×3 (11:58→22:21)
--- NOTE | 2017-01-09 14:17 | HHI.DS ---
Discharge Summary Admission Date Jan 07, 2017 at 17:35 Discharge Date: Jan 09, 2017 Admitting Diagnosis AMS/Anemia/Vaginal Bleeding CBC/BMP: 01/08/17 1128 01/08/17 1128 Significant Findings Laboratory Tests Test 01/07/17 01/07/17 01/08/17 16:00 16:20 11:28 Red Blood Count 2.59 MIL/MM3 3.24 MIL/MM3 (4.00-5.30) (4.00-5.30) Hemoglobin 7.5 GM/DL 9.6 GM/DL (11.6-15.3) (11.6-15.3) Hematocrit 23.9 % 29.9 % (35.0-46.0) (35.0-46.0) Mean Corpuscular Hemoglobin 31.5 % Concent (32.0-36.0) Red Cell Distribution Width 17.8 % 17.4 % (11.6-17.2) (11.6-17.2) Platelet Count 122 TH/MM3 140 TH/MM3 (150-450) (150-450) Neutrophils (%) (Auto) 82.2 % 81.1 % (16.0-70.0) (16.0-70.0) Lymphocytes (%) (Auto) 5.6 % 8.1 % (9.0-44.0) (9.0-44.0) Monocytes (%) (Auto) 9.3 % (0.0-8.0) 9.0 % (0.0-8.0) Lymphocytes # (Auto) 0.4 TH/MM3 0.6 TH/MM3 (1.0-4.8) (1.0-4.8) Sodium Level 133 MEQ/L 131 MEQ/L (136-145) (136-145) Chloride Level 97 MEQ/L 95 MEQ/L (98-107) (98-107) Estimat Glomerular Filtration 76 ML/MIN (>89) 75 ML/MIN (>89) Rate Calcium Level 8.0 MG/DL (8.5-10.1) Aspartate Amino Transf 13 U/L (15-37) (AST/SGOT) Total Protein 5.8 GM/DL (6.4-8.2) Albumin 2.8 GM/DL (3.4-5.0) Urine Turbidity HAZY (CLEAR) Urine Specific Weed 1.041 (1.002-1.035) Urine Protein 300 mg/dL (NEG-TRACE) Urine Mucus FEW /lpf (OCC) Random Glucose 107 MG/DL (74-106) Imaging Last Impressions Head CT 01/07/17 1535 Signed Impressions: Service Date/Time: Saturday, January 07, 2017 16:30 - CONCLUSION: Normal examination for a patient of this age. No significant change has occurred. Kavin Pak MD Chest X-Ray 01/07/171534 Signed Impressions: Service Date/Time: Saturday, January 07, 2017 15:55 - CONCLUSION: 1. Stable opacification of right hemithorax since December 01. Minimal left basilar opacity, probably atelectasis. Kavin Pak MD Pt Condition on Discharge: Stable Discharge Disposition: Discharge to SNF Discharge Instructions DIET: Follow Instructions for: Heart Healthy Diet Activities you can perform: Regular-No Restrictions Follow up Referrals: PCP Follow-up - 2-3 Days Continued Medications: Acetaminophen (Tylenol) 325 Mg Tab 650 MG PO Q4H PRN Pain/Discomfort/Temp >101 Ref 0 TAB Albuterol Neb (Albuterol Neb) 2.5 Mg/3 Ml Neb 2.5 MG INH Q2HR NEB PRN SOB/WHEEZING #60 NEBULE Alprazolam (Xanax) 0.5 Mg Tab 0.5 MG PO Q4H PRN ANXIETY Ref 0 TAB Qtktbwds-Oazciumpf-Kncqtltdusn Liq (Antacid Anti-Gas Regular Liq) 200-200-20 Mg/ 5 Ml Susp 30 ML PO Q8HR Indigestion Ref [address] (Aspir-81) 81 Mg Tabdr 81 MG PO DAILY [place] Bisacodyl Supp (Dulcolax Supp) 10 Mg Supp 10 MG RECTAL DAILY As needed if no results from Milk of Mag PRN CONSTIPATION # 12 [address] (Duloxetine DR) 60 Mg Capdr 60 MG PO DAILY Depression Control #30 Ref 0 CAP Enalapril (Enalapril) 20 Mg Tab 20 MG PO DAILY #30 Ref 0 TAB Furosemide (Furosemide) 20 Mg Tab 20 MG PO DAILY FLUID OVERLOAD #30 Ref 1 TAB Levothyroxine (Levothyroxine) 50 Mcg Tab 50 MCG PO DAILY Thyroid #30 Ref 0 TAB Loperamide HCl (Loperamide) 2 Mg Tablet 4 MG PO Initial Dose After initial dose, give 1 tab (2mg) after each loose stool Not to exceed 8 tabs/24hrs PRN DIARRHEA Mag Hydrox/Aluminum Hyd/Simeth (Antacid II-Simethicone Liq) 360 Ml Oral.susp 30 ML PO Q4HR PRN Indigestion/Heartburn Magnesium Hydroxide Liq (Milk of Magnesia Liq) 400 Mg/5 Ml Susp 30 ML PO Q4HR PRN CONSTIPATION #1 Ref 0 BOTTLE Melatonin (Melatonin) 3 Mg Tab 3 MG PO HS Insomnia Metoprolol Tartrate (Metoprolol Tartrate) 25 Mg Tab 25 MG PO Q8HR #90 Ref 0 TAB Pancrelipase (Creon) 24,000-76,000-120,000 Units Cap 1 CAP PO TID abdominal pain #90 CAP Potassium Chloride ER (Potassium Chloride ER) 10 Meq Cap 10 MEQ PO DAILY Electrolyte Replacement #30 Ref 0 CAP Quetiapine (Seroquel) 100 Mg Tab 100 MG PO TID #60 Ref 0 TAB Ranitidine (Zantac 150 Maximum Strength) 150 Mg Tab 150 MG PO BID TAB Rivaroxaban (Xarelto) 20 Mg Tab 20 MG PO DAILY Blood Clot Prevention Ref 0 TAB Sodium Phosphates (Enema Disposable) 1 Jasmin Jasmin 1 APPLIC RECTAL DAILY As needed if no results from Dulcolax PRN CONSTIPATION Brionna Fuentes Jan 09, 2017 14:17
[2017-01-09] MEDS: MELATONIN 5 MG TAB PO SCH ×2 (21:00→22:43)
[2017-01-10 03:07] VITALS: BP_SYST 184; BP_SYST 212; BP_DIAS 105; BP_DIAS 93; PULSE 94; RESP 22; TEMP 97.5; O2SAT 94
[2017-01-10] MEDS: ALPRAZolam 0.5 MG TAB PO PRN ×2 (03:45→09:59)
[2017-01-10] MEDS: METOPROLOL TARTRATE 25 MG TAB PO SCH ×3 (03:47→13:29)
[2017-01-10] MEDS: ALUMINUM/MAGNESIUM/SIMETH 30 ML CUP PO SCH ×3 (05:58→13:28)
[2017-01-10] MEDS: LEVOTHYROXINE SODIUM 50 MCG TAB PO SCH (06:06)
[2017-01-10] MEDS: NYSTATIN 100,000 U/GM PWD 15 GM BTL TOPICAL SCH (06:06)
[2017-01-10] MEDS: INSULIN ASPART SUPPLEMENTAL SCALE SQ SCH ×2 (06:11→11:00)
[2017-01-10 06:17] VITALS: BP 171/91
[2017-01-10] MEDS: RESP: ALBUTEROL 2.5 MG/3 ML NEB (PRN) INH ×2 (06:28→12:05)
[2017-01-10 07:39] VITALS: BP 142/80; PULSE 78; RESP 17; TEMP 97.9; O2SAT 97
[2017-01-10 07:43] VITALS: O2SAT 98
--- NOTE | 2017-01-10 07:56 | HHI.PR ---
Subjective Remarks awakes to voice, oriented x 2 no cp no sob anxious last night, BP went up, better now, 140s no fever Objective Objective Results - Vital Signs Date Time Temp Pulse Resp B/P Pulse Ox O2 Delivery O2 Flow Rate FiO2 01/10/17 07:39 97.9 78 17 142/80 97 01/10/17 06:17 171/91 01/10/17 03:07 97.5 94 22 184/93 94 01/09/17 23:57 97.4 63 18 140/64 97 01/09/17 20:00 3.00 01/09/17 20:00 54 01/09/17 19:25 95 Nasal Cannula 3.00 01/09/17 19:21 97.6 84 16 140/77 97 01/09/17 15:51 97.8 90 18 140/80 96 01/09/17 13:40 81 01/09/17 13:29 93 Nasal Cannula 3.00 21 01/09/17 12:12 97.9 92 18 149/86 93 01/09/17 10:36 91 Nasal Cannula 3.00 01/09/17 08:15 96.8 90 18 183/99 96 I/O 01/09/17 01/09/17 01/09/17 01/10/17 01/10/17 01/10/17 07:00 15:00 23:00 07:00 15:00 23:00 Intake Total 120 ml 636 ml Output Total 501 ml Balance -381 ml 636 ml Intake Oral 120 ml 240 ml IV Total 396 ml Output Urine Total 500 ml Stool Total 1 ml # Voids 1 1 1 2 # Bowel Movements 1 Result Diagram: 01/08/17 1128 01/08/17 1128 Other Results Date/Time Procedure Status Source Growth 01/07/17 16:00 Aerobic Blood Culture - Preliminary Resulted Blood Peripheral NO GROWTH IN 2 DAYS 01/07/17 16:00 Anaerobic Blood Culture - Preliminary Resulted Blood Peripheral NO GROWTH IN 2 DAYS ROS General: Other (12 point ROS unreliable) Physical Exam Physical Exam PHYSICAL EXAMINATION GENERAL: This is an obese female, elderly. She is alert and awake, HEAD: Normocephalic, hematoma to back of head improved OROPHARYNGEAL: Oropharynx without erythema or edema. NECK: Supple. Trachea midline without deviation. CARDIAC: Regular rhythm, regular rate, S1 and S2 are heard. LUNGS: Diminished to auscultation bilaterally. ABDOMEN: Soft, nontender, obese, EXTREMITIES: trace edema. Pulses equal bilateral. Pedal pulses 2+ NEUROLOGICAL: Patient mood and affect anxious at times. No focal deficit SKIN:Warm and moist Urinary Catheter: No Vascular Central Line Catheter: No A/P Assessment and Plan 1. Altered mental status. 2. Fall. 3. Hematoma to the back of the head, right side. 4. Recent history of vaginal bleeding. 5. Constipation. 6. Adjustment disorder with mixed anxiety and depressed mood. 7. History of major depressive disorder. 8. History of diverticulosis. 9. COPD. 10. Chronic kidney disease. 11. Hypertension. 12. Generalized weakness and debility. 13. Anemia, 14. Chronic fungal skin rash, lt. breast 15. Anemia Plan s/p fall with hematoma, neuro intact hematoma better Anemia, dropped, HH, s/p PRBC HH stable no active bleeding Xarelto on hold anxiety, panic attacks continue home meds Xanax PRN vaginal bleeding report, none noted S/P PRBC transfusion, HH stable COPD, stable continue with supplemental oxygent Duonebs HTN, at times uncontrolled continue home and PRN meds CKD stable continue to monitor weakness, physical debility continue OOB, PT eval Fungal rash to breast continue Nystatin continue bowel regimen DVT prophylaxis, refusing to wear SCDs Xarelto on hold Pepcid for PUD prophylaxis Discharge to SNF, no facility has accepted yet f/u PCP Diet-heart healthy Activity-as tolerated Discussed with nurse Discussed with Dr. Caputo Discussed with patient This patient seen by myself and Dr. Caputo, this note is written on his behalf. Sherron Mota Jan 10, 2017 07:55
[2017-01-10] MEDS: FUROSEMIDE 20 MG TAB PO SCH (08:06)
[2017-01-10] MEDS: DULoxetine HCl DR 60 MG CAP PO SCH (08:06)
[2017-01-10] MEDS: QUEtiapine FUMARATE 100 MG TAB PO SCH ×2 (08:06→13:29)
[2017-01-10] MEDS: ENALAPRIL MALEATE 10 MG TAB PO SCH (08:07)
[2017-01-10] MEDS: ASPIRIN EC 81 MG TABEC PO SCH (08:07)
[2017-01-10] MEDS: FAMOTIDINE 20 MG TAB PO SCH (08:07)
[2017-01-10] MEDS: LIPASE/PROTEASE/AMYLASE (24,000/76,000/120,000) CAP PO SCH ×2 (08:07→13:29)
[2017-01-10] MEDS: POTASSIUM CHLORIDE 10 MEQ CAP PO SCH (08:07)
[2017-01-10] MEDS: DOCUSATE SODIUM 50 MG/SENNA 8.6 MG TAB PO SCH (08:08)
[2017-01-10] MEDS: SODIUM CHLORIDE 0.9% FLUSH 10 ML FLUSH IV FLUSH SCH (08:08)
[2017-01-10 11:47] VITALS: BP 140/94; PULSE 88; RESP 20; TEMP 98; O2SAT 100
[2017-01-10 13:05] VITALS: PULSE 91
== END 2017-01-10 13:53 ==
LOC: NEPC 15:20 → NEDA 17:35 → NEPHCDU 18:47
PROVIDERS: ADMIT Specialist; ATTEND Specialist
DX: R41.82 Altered mental status, unspecified (principal); S00.03XA Contusion of scalp, initial encounter; K59.00 Constipation, unspecified; N93.9 Abnormal uterine and vaginal bleeding, unspecified; R53.1 Weakness; R21 Rash and other nonspecific skin eruption; R42 Dizziness and giddiness; R19.7 Diarrhea, unspecified; R11.2 Nausea with vomiting, unspecified; R06.02 Shortness of breath; R53.83 Other fatigue; R05 Cough; L30.4 Erythema intertrigo; R91.8 Other nonspecific abnormal finding of lung field; M54.9 Dorsalgia, unspecified; D64.9 Anemia, unspecified; I48.91 Unspecified atrial fibrillation; I25.10 Atherosclerotic heart disease of native coronary artery without angina pectoris; K21.9 Gastro-esophageal reflux disease without esophagitis; E07.9 Disorder of thyroid, unspecified; M79.7 Fibromyalgia; I25.2 Old myocardial infarction; F41.0 Panic disorder [episodic paroxysmal anxiety]; F43.23 Adjustment disorder with mixed anxiety and depressed mood; J44.9 Chronic obstructive pulmonary disease, unspecified; I13.0 Hypertensive heart and chronic kidney disease with heart failure and stage 1 through stage 4 chronic kidney disease, or unspecified chronic kidney disease; I50.9 Heart failure, unspecified; E11.22 Type 2 diabetes mellitus with diabetic chronic kidney disease; N18.9 Chronic kidney disease, unspecified; M19.90 Unspecified osteoarthritis, unspecified site; Z79.899 Other long term (current) drug therapy; Z79.01 Long term (current) use of anticoagulants; Z85.118 Personal history of other malignant neoplasm of bronchus and lung; W01.0XXA Fall on same level from slipping, tripping and stumbling without subsequent striking against object, initial encounter; Y92.129 Unspecified place in nursing home as the place of occurrence of the external cause
CPT/HCPCS: 36430; 70450; 71010; 80048; 80053; 81001; 82948; 83605; 85014; 85018; 85025; 86850; 86900; 86901; 86920; 87040; 94640; 94664; 97162; 99285; G0378; G8987; G8988; J2405; J7030; J7050; J7613; P9016

== ENCOUNTER 2017-01-26 21:50 | Inpatient (IN) | payer MEDICARE, MEDICAID ==
[2017-01-26] VITALS (9 sets, daily range): BP systolic 109–165; BP diastolic 53–84; PULSE 63–80; RESP 16–20; TEMP 98.9; O2SAT 100
[~2017-01-26] VITALS: Ht 165.1 cm; Wt 99.0 kg
[~2017-01-26 21:50] MED LIST changes: +ANTASUS13 PO; -CYMB30CA PO; +DULC10SU3 RECTAL; +DULO1CAP3 PO; +ENEMENE5 RECTAL; -LEXA20TA PO; +LOPE2TAB21 PO; +MELA0.02 PO; -MELA5TAB15 PO; +MILKSUS PO; -MIRTA15 PO; -MYLASUS2 PO; -QUET1TAB7 PO; +SERO100T PO; +TYLE325T PO; -XARE15TA PO; +XARE20TA PO; +[UNRECOGNIZED DRUG - CODE] PO
[2017-01-26] MEDS ORDERED: SODIUM CHLOR 0.9% 1000 ML INJ 1,000 ML IV ONE ×2 (22:45)
[2017-01-26] MEDS ORDERED: TERBUTALINE INJ 1 MG/ML AMP SQ PRN (22:45)
[2017-01-26] MEDS ORDERED: NOREPINEPHRINE-DEXTROSE DRIP 250 ML IV SCH (22:45)
--- NOTE | 2017-01-26 22:51 | PD ---
HPI Chief Complaint: Cardiac Complaint Time Seen by Provider: 22:36 Travel History International Travel<30 days: No Contact w/Intl Traveler<30days: No Traveled to known affect area: No ([place]) History of Present Illness HPI 8 year-old woman, multiple medical problems, presents to the emergency department following cardiac arrest. Patient was reportedly last seen around 4 hours or so ago. She was found unresponsive. She had no pulse. CPR was started. EMS found the patient asystolic. They continued ACLS, intubation, 3 rounds of epi, some bicarbonate. The return of spontaneous circulation and patient presented to the ED hypotensive but with pulses. No other history is available. History Past Medical History Narrative Medical A. fib, reportedly on Xarelto COPD History of cancer the long High blood pressure CHF CAD GI disorders GERD Headaches Anxiety, major depression Hypothyroidism Diabetes Menopausal: Yes : 1 Para: 1 Social History Alcohol Use: No Tobacco Use: No Allergies-Medications (Allergen,Severity, Reaction): Coded Allergies: Adhesives (Verified Allergy, Severe, RASK, 01/26/17) skin breakdown Calcium Channel Blockers (Verified Allergy, Severe, DIFFICULTY BREATHING, 01/26/17) Entex LA (Verified Allergy, Severe, Anaphylaxis, 01/26/17) Marcaine (Verified Allergy, Severe, DIFFICULTY BREATHING, 01/26/17) Minocin (Verified Allergy, Severe, DIFFICULTY BREATHING, 01/26/17) Nonsteroidal Anti-Inflammatory Agts (Verified Allergy, Severe, DIFFICULTY BREATHING, 01/26/17) PEANUTS (Verified Allergy, Severe, lips swelling, 01/26/17) Penicillin (Verified Allergy, Severe, DIFFICULTY BREATHING, 01/26/17) Prilosec (Verified Allergy, Severe, DIFFICULTY BREATHING, 01/26/17) Promethazine (Verified Allergy, Severe, DIFFICULTY BREATHING, 01/26/17) Sulfa (Verified Allergy, Severe, DIFFICULTY BREATHING, 01/26/17) Prednisone (Verified Allergy, Intermediate, rash and lips swell, 01/26/17) Zyrtec (Verified Allergy, Intermediate, rash, 01/26/17) Vancomycin (Verified Allergy, Mild, Flushing, 01/26/17) lips tingling Zyprexa (Verified Adverse Reaction, Severe, Severe vomiting., 01/26/17) Fluticasone (Verified Adverse Reaction, Intermediate, Rawness of the skin around the nose. Inhaled steroids do , 01/26/17) the same to her mouth. Omeprazole (Verified Adverse Reaction, Intermediate, Freedom funny, 01/26/17) Zithromax (Verified Adverse Reaction, Intermediate, Says it made her jittery and it was harder to breathe. 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 Not sure would get same reaction to Injectable. Lian Huber MD. Jacob (Adverse Reaction, Severe, Caused amnesia and a fall. , 07/10/13) Reported Meds & Prescriptions Reported Meds & Active Scripts Active Hydrocodone-Acetaminophen 5-325 mg Tab 1 Tab PO Q6H PRN 14 Days Furosemide 20 Mg Tab 20 Mg PO DAILY Albuterol Neb (Albuterol Sulfate) 2.5 Mg/3 Ml Neb 2.5 Mg INH Q2HR NEB PRN Creon (Amylase/Lipase/Protease) 24,000-76,000-120,000 Units Cap 1 Cap PO TID Reported Milk of Magnesia Liq (Magnesium Hydroxide) 400 Mg/5 Ml Susp 30 Ml PO Q4HR PRN Xanax (Alprazolam) 0.5 Mg Tab 0.5 Mg PO Q4H PRN Seroquel (Quetiapine Fumarate) 100 Mg Tab 100 Mg PO TID Xarelto (Rivaroxaban) 20 Mg Tab 20 Mg PO DAILY Antacid Anti-Gas Regular Liq (Fycxsgxn-Hzwtdzslc-Abggxcqvnzs Liq) 200-200-20 Mg/ 5 Ml Susp 30 Ml PO Q8HR Loperamide (Loperamide HCl) 2 Mg Tablet 4 Mg PO INITIAL DOSE PRN After initial dose, give 1 tab (2mg) after each loose stool Not to exceed 8 tabs/24hrs Enema Disposable (Sodium Phosphates) 1 Jasmin Jasmin 1 Applic RECTAL DAILY PRN As needed if no results from Dulcolax Dulcolax Supp (Bisacodyl) 10 Mg Supp 10 Mg RECTAL DAILY PRN As needed if no results from Milk of Mag Tylenol (Acetaminophen) 325 Mg Tab 650 Mg PO Q4H PRN Duloxetine DR (Duloxetine HCl) 60 Mg Capdr 60 Mg PO DAILY Melatonin 3 Mg Tab 3 Mg PO HS Antacid II-Simethicone Liq (Mag Hydrox/Aluminum Hyd/Simeth) 360 Ml Oral.susp 30 Ml PO Q4HR PRN Aspir-81 (Aspirin) 81 Mg Tabdr 81 Mg PO DAILY Enalapril (Enalapril Maleate) 20 Mg Tab 20 Mg PO DAILY Metoprolol Tartrate 25 Mg Tab 25 Mg PO Q8HR Levothyroxine (Levothyroxine Sodium) 50 Mcg Tab 50 Mcg PO DAILY Zantac 150 Maximum Strength (Ranitidine HCl) 150 Mg Tab 150 Mg PO BID Potassium Chloride ER (Potassium Chloride) 10 Meq Cap 10 Meq PO DAILY Review of Systems ROS Limitations: Clinical Condition Physical Exam Narrative GENERAL: Obtunded 8 year-old woman, no response to any stimuli. Ill-appearing. SKIN: Cool and clammy. HEAD: Atraumatic. Normocephalic. EYES: Pupils fixed mid position, no corneal reflex. ENT: No nasal bleeding or discharge. Mucous membranes pink and moist. NECK: Trachea midline. No JVD. CARDIOVASCULAR: Unable to palpate central pulses. Poor perfusion. RESPIRATORY: Occasional gasping respiration. GASTROINTESTINAL: Abdomen obese and soft. Mildly distended. MUSCULOSKELETAL: No obvious deformities. Some chronic edema. NEUROLOGICAL: Obtunded. No response to any stimuli. Data Data Last Documented VS Vital Signs Date Time Temp Pulse Resp B/P Pulse Ox O2 Delivery O2 Flow Rate FiO2 01/26/17 23:45 100 70 01/26/17 22:21 63 20 130/59 01/26/17 22:10 Ventilator 01/26/17 22:02 98.9 01/26/17 21:45 15.00 Orders Electrocardiogram (01/26/17 22:36) Complete Blood Count With Diff (01/26/17 22:36) Comprehensive Metabolic Panel (01/26/17 22:36) Prothrombin Time / Inr (Pt) (01/26/17 22:36) Act Partial Throm Time (Ptt) (01/26/17 22:36) Lactic Acid Sepsis Protocol (01/26/17 22:36) Magnesium (Mg) (01/26/17 22:36) Lipase (01/26/17 22:36) Troponin I (01/26/17 22:36) Urinalysis - C+S If Indicated (01/26/17 22:36) Blood Culture (01/26/17 22:36) Chest, Single Ap (01/26/17 22:36) Arterial Blood Gas (Abg) (01/26/17 22:36) Blood Glucose (01/26/17 22:36) Ecg Monitoring (01/26/17 22:36) Iv Access Insert/Monitor (01/26/17 22:36) Oximetry (01/26/17 22:36) Oxygen Administration (01/26/17 22:36) Ct Brain W/O Iv Contrast(Rout) (01/26/17 22:36) Sodium Chlor 0.9% 1000 Ml Inj (Ns 1000 M (01/26/17 22:45) Sodium Chlor 0.9% 1000 Ml Inj (Ns 1000 M (01/26/17 22:45) Norepinephrine-Dextrose Drip (Levophed-D (01/26/17 22:45) Terbutaline Inj (Brethine Inj) (01/26/17 22:45) Restraints Non-Violent KERWIN.Q3H (01/26/17 22:36) Joshua-Gastric Tube Insert/Mon (01/26/17 22:39) Insert Temp Sensing Barnett Cath (01/26/17 22:39) Atropine Inj (Atropine Inj) (01/26/17 23:48) Resp Ventilation- Volume (01/26/17 ) Admit Order (Ed Use Only) (01/26/17 ) Labs Laboratory Tests Test 01/26/17 01/26/17 22:42 23:00 White Blood Count 9.6 TH/MM3 Red Blood Count 2.78 MIL/MM3 Hemoglobin 8.3 GM/DL Hematocrit 25.7 % Mean Corpuscular Volume 92.6 FL Mean Corpuscular Hemoglobin 29.7 PG Mean Corpuscular Hemoglobin 32.1 % Concent Red Cell Distribution Width 18.9 % Platelet Count 208 TH/MM3 Mean Platelet Volume 8.7 FL Neutrophils (%) (Auto) 76.1 % Lymphocytes (%) (Auto) 14.5 % Monocytes (%) (Auto) 5.8 % Eosinophils (%) (Auto) 3.2 % Basophils (%) (Auto) 0.4 % Neutrophils # (Auto) 7.3 TH/MM3 Lymphocytes # (Auto) 1.4 TH/MM3 Monocytes # (Auto) 0.6 TH/MM3 Eosinophils # (Auto) 0.3 TH/MM3 Basophils # (Auto) 0.0 TH/MM3 CBC Comment DIFF FINAL Differential Comment Prothrombin Time 16.1 SEC Prothromb Time International 1.4 RATIO Ratio Activated Partial 29.9 SEC Thromboplast Time Sodium Level 134 MEQ/L Potassium Level 4.2 MEQ/L Chloride Level 96 MEQ/L Carbon Dioxide Level 28.1 MEQ/L Anion Gap 10 MEQ/L Blood Urea Nitrogen 11 MG/DL Creatinine 1.44 MG/DL Estimat Glomerular Filtration 36 ML/MIN Rate Random Glucose 121 MG/DL Lactic Acid Level 5.5 mmol/L Calcium Level 7.8 MG/DL Magnesium Level 2.1 MG/DL Total Bilirubin 0.7 MG/DL Aspartate Amino Transf 34 U/L (AST/SGOT) Alanine Aminotransferase 15 U/L (ALT/SGPT) Alkaline Phosphatase 72 U/L Troponin I 0.05 NG/ML Total Protein 5.5 GM/DL Albumin 2.6 GM/DL Lipase 109 U/L Blood Gas Puncture Site ART LINE Blood Gas Patient Temperature 98.6 Blood Gas HCO3 25 mmol/L Blood Gas Base Excess 1.2 mmol/L Blood Gas Oxygen Saturation 98 % Arterial Blood pH 7.44 Arterial Blood Partial 38 mmHg Pressure CO2 Arterial Blood Partial 215 mmHG Pressure O2 Arterial Blood Oxygen Content 11.6 Vol % Arterial Blood 1.7 % Carboxyhemoglobin Arterial Blood Methemoglobin 0.4 % Blood Gas Hemoglobin 8.0 G/DL Oxygen Delivery Device VENTILATOR Blood Gas Ventilator Setting VAC20/500/8 Blood Gas Inspired Oxygen 70 % [facility] Medical Decision Making Medical Screen Exam Complete: Yes Emergency Medical Condition: Yes Differential Diagnosis Cardiac arrest, arrhythmia, adverse effect to medication, PE, head bleed, other Narrative Course Medical decision making INITIAL: 71 year-old woman says post cardiac arrest. Hypotensive on arrival. Treated with some push doses of epinephrine, started nor epi drip. ET tube was confirmed. Only access was through an IO. Right femoral central line and arterial line were placed. Etiology is unclear. Looking through her records she had a Xanax this morning but no other sedating medications that I can see. No history of trauma that is reported. No obvious evidence of trauma. Ental status is very poor, with no response to noxious stimuli, no corneal reflex, no pupillary reflex. We'll get CT head, labs, fluid resuscitation, continue vasopressors, reassess. Critical Care Narrative Aggregate critical care time was 45 minutes. Time to perform other separately billable procedures was not included in the critical care time. My time did not include minutes spent treating any other patients simultaneously or on activities that did not directly contribute to the patient's treatment. The services I provided to this patient were to treat and/or prevent clinically significant deterioration that could result in: , disability, permanent neurologic dysfunction, other. I provided critical care services requiring my management, as noted below: Chart data review, documentation time, medication orders and management, vital sign assessments/reviewing monitor data, ordering and reviewing lab tests, ordering and interpreting/reviewing x-rays and diagnostic studies, care of the patient and discussion of the patient with the admitting physicians. Procedures Procedure Narrative CENTRAL VENOUS LINE: The site was prepped with chlorhexidine and sterilely draped. Ultrasound was utilized to gain access to the vessel. The deep vein was cannulated using normal Seldinger technique. A triple lumen central line was placed in the right femoral site and secured with simple interrupted suture. The site was sterilely dressed. The patient tolerated the procedure well. ARTERIAL line: The site was prepped with cracking sterilely draped. Ultrasound utilized to gain access to the vessel. The deep vessels cannula is using normal Seldinger technique. 18-gauge right femoral arterial line was placed. Good waveform. Patient tolerated well. Diagnosis Primary Impression: Acute respiratory failure with hypoxia and hypercapnia Additional Impression: Cardiac arrest Rafael Parks MD Jan 26, 2017 22:51
[2017-01-26 23:04] LABS: AUTOMATED NEUTROPHIL # 7.3 TH/MM3 (1.8-7.7); BASOPHIL % 0.4 % (0.0-2.0); EOSINOPHIL # 0.3 TH/MM3 (0-0.4); EOSINOPHIL % 3.2 % (0.0-4.0); HEMATOCRIT 25.7 % (35.0-46.0); HEMO FLAGS DIFF FINAL; LYMPH % 14.5 % (9.0-44.0); LYMPHOCYTE # 1.4 TH/MM3 (1.0-4.8); MEAN CELL VOLUME 92.6 FL (80.0-100.0); MEAN CORPUSCULAR HEMOGLOBIN 29.7 PG (27.0-34.0); MEAN CORPUSCULAR HGB CONC 32.1 % (32.0-36.0); MONO % 5.8 % (0.0-8.0); NEUT % 76.1 % (16.0-70.0); PLATELET COUNT 208 TH/MM3 (150-450); RED BLOOD COUNT 2.78 MIL/MM3 (4.00-5.30); RED CELL DISTRIBUTION WIDTH 18.9 % (11.6-17.2); WHITE BLOOD COUNT 9.6 TH/MM3 (4.0-11.0)
[2017-01-26 23:15] LABS: BLOOD GAS BASE EXCESS 1.2 mmol/L (-2-2); BLOOD GAS CARBOXYHEMOGLOBIN 1.7 % (0-4); BLOOD GAS HCO3 25 mmol/L (22-26); BLOOD GAS METHEMOGLOBIN 0.4 % (0-2); BLOOD GAS O2 HGB SATURATION 98 % (90-100); BLOOD GAS OXYGEN CONTENT 11.6 Vol % (12.0-20.0); BLOOD GAS PCO2 38 mmHg (38-42); BLOOD GAS PO2 215 mmHG (61-120); CRITICAL VALUE NO; DRAW SITE ART LINE; FIO2 70 %; OXYGEN DEVICE VENTILATOR; TEMP CORR TO 98.6; VENT SETTINGS VAC20/500/8
[2017-01-26 23:16] LABS: APTT (PATIENT) 29.9 SEC (24.3-30.1); INTERNATIONAL NORMALIZED RATIO 1.4 RATIO; PROTHROMBIN TIME - PATIENT 16.1 SEC (9.8-11.6)
[2017-01-26 23:16] LABS: STAT YES
--- NOTE | 2017-01-26 23:24 | RADRPT ---
EXAM DATE/TIME: 01/26/2017 22:35 [facility] COMPARISON: CHEST SINGLE AP, January 07, 2017, 15:55. INDICATIONS : Post intubation. MEDICAL HISTORY : Cardiovascular disease. Congestive heart failure. Carcinoma, lung. AFIB. SURGICAL HISTORY : Cholecystectomy. ENCOUNTER: Initial ACUITY: 1 day PAIN SCORE: Non-responsive. LOCATION: Bilateral chest FINDINGS: 2 AP views of the chest. Endotracheal tube is in place with the tip 2.6 cm above the kiley. Nasogast guy tube is in place with the tip in the distal stomach. Near complete opacification of the right hem ithorax is unchanged. Left lung is clear. Cardiomediastinal silhouette unchanged. No evidence of pneu mothorax. CONCLUSION: 1. Near-complete opacification of the right hemithorax again seen. 2. Endotracheal tube and nasogastric tube now in place. Larry Curiel MD on January 26, 2017 at 23:18 Board Certified Radiologist. This report was verified electronically.
[2017-01-26 23:26] LABS: ANION GAP 10 MEQ/L (5-15); AST (GOT) 34 U/L (15-37); BICARBONATE 28.1 MEQ/L (21.0-32.0); BLOOD UREA NITROGEN 11 MG/DL (7-18); CHLORIDE 96 MEQ/L (98-107); GLOMERULAR FILTRATION RATE 36 ML/MIN (>89); MAGNESIUM 2.1 MG/DL (1.5-2.5); POTASSIUM 4.2 MEQ/L (3.5-5.1); SODIUM (NA) 134 MEQ/L (136-145)
[2017-01-26 23:27] LABS: ALT (GPT) 15 U/L (10-53)
[2017-01-26 23:31] LABS: ALKALINE PHOSPHATASE 72 U/L (45-117); TOTAL BILIRUBIN ADULT 0.7 MG/DL (0.2-1.0)
[2017-01-26] MEDS ORDERED: ATROPINE SULFATE 1 MG/10 ML SYRINGE ONE (23:48)
[2017-01-27] VITALS (20 sets, daily range): BP systolic 117–145; BP diastolic 43–63; PULSE 48–62; RESP 1–26; TEMP 97–100.4; O2SAT 86–100
--- NOTE | 2017-01-27 00:11 | RADRPT ---
EXAM DATE/TIME: 01/26/2017 23:36 [facility] COMPARISON: CT BRAIN W/O CONTRAST, January 07, 2017, 16:30. INDICATIONS : Altered mental status. RADIATION DOSE: 56.35 CTDIvol (mGy) MEDICAL HISTORY : Myocardial infarction. Cardiovascular disease Hypertension. SURGICAL HISTORY : None. ENCOUNTER: Initial ACUITY: 1 day PAIN SCALE: Non-responsive LOCATION: cranial TECHNIQUE: Multiple contiguous axial images were obtained of the head. Using automated exposure control and adj ustment of the mA and/or kV according to patient size, radiation dose was kept as low as reasonably a chievable to obtain optimal diagnostic quality images. DICOM format image data is available electro nically for review and comparison. FINDINGS: CEREBRUM: The ventricles are normal for age. No evidence of midline shift, mass lesion, hemorrhage or acute in farction. No extra-axial fluid collections are seen. POSTERIOR FOSSA: The cerebellum and brainstem are intact. The 4th ventricle is midline. The cerebellopontine angle i s unremarkable. EXTRACRANIAL: Prominent air fluid levels in the maxillary sinuses and partial opacification of the ethmoid sinuses. Small air-fluid levels of the ethmoid sinuses and sphenoid sinuses. Left maxillary sinus polyp versu s retention cyst again seen. Hemorrhagic or proteinaceous material is seen within the left maxillary sinus. SKULL: The calvaria is intact. No evidence of skull fracture. CONCLUSION: 1. Moderate amount of fluid in the sinuses involving the maxillary, ethmoid, and sphenoid sinuses. Hi gh density fluid is seen at the dependent portion of the left maxillary sinus. This may represent hem orrhagic material or proteinaceous material. Polyp or retention cyst is again seen in the left maxill mayda sinus. The fluid is new compared to the prior study of 01/07/2017. 2. No acute intracranial findings. Larry Curiel MD on January 27, 2017 at 0:03 Board Certified Radiologist. This report was verified electronically.
[2017-01-27] MEDS ORDERED: ACETAMINOPHEN 325 MG TAB PO PRN ×2 (00:15)
[2017-01-27] MEDS ORDERED: BISACODYL 10 MG SUPP RECTAL PRN (00:15)
[2017-01-27] MEDS ORDERED: ONDANSETRON HCL 4 MG/2 ML VIAL IV PRN (00:15)
[2017-01-27] MEDS ORDERED: MIDAZOLAM HCL 2 MG/2 ML VIAL IV PRN (00:15)
[2017-01-27] MEDS ORDERED: SENNOSIDES 8.6 MG TAB PO PRN (00:15)
[2017-01-27] MEDS ORDERED: SODIUM CHLORIDE 0.9% FLUSH 10 ML FLUSH PRN (00:15)
[2017-01-27] MEDS ORDERED: ALPRAZolam 0.5 MG TAB PO PRN (00:15)
[2017-01-27] MEDS ORDERED: MISCELLANEOUS NURSING INFORMATION XX SCH (00:15)
[2017-01-27] MEDS ORDERED: RESP: ALBUTEROL 2.5 MG/IPRATROPIUM 0.5 MG NEB (PRN) INH (00:15)
[2017-01-27] MEDS ORDERED: CHLORHEXIDINE GLUCONATE 2 % 1 PACK (2 CLOTHS) TOP PRN (00:15)
[2017-01-27] MEDS ORDERED: LACTULOSE SYRUP 20 GM/30 ML CUP PO PRN (00:15)
[2017-01-27] MEDS ORDERED: MAGNESIUM HYDROXIDE SUSP 30 ML CUP PO PRN (00:15)
[2017-01-27 00:28] LABS: BACTERIA, URINE OCC /hpf; BLOOD, URINE SMALL (NEG); GLUCOSE,URINE NEG (NEG); KETONE, URINE NEG (NEG); MUCUS URINE FEW /lpf (OCC); NITRITE,URINE NEG (NEG); PH, URINE 7.5 (5.0-8.5); URINE COLOR YELLOW (YELLW/STRAW)
[2017-01-27 00:29] LABS: COMMENT (UR) CATH-CULTURE IND; CULTURE IF INDICATED CATH CULTURE IND
[2017-01-27 00:39] LABS: BLOOD GAS BASE EXCESS 0.8 mmol/L (-2-2); BLOOD GAS CARBOXYHEMOGLOBIN 1.7 % (0-4); BLOOD GAS HCO3 24 mmol/L (22-26); BLOOD GAS METHEMOGLOBIN 0.3 % (0-2); BLOOD GAS O2 HGB SATURATION 98 % (90-100); BLOOD GAS OXYGEN CONTENT 11.7 Vol % (12.0-20.0); BLOOD GAS PCO2 35 mmHg (38-42); BLOOD GAS PO2 167 mmHG (61-120); BLOOD GAS TOTAL HGB 8.3 G/DL (12.0-16.0); CRITICAL VALUE NO; OXYGEN DEVICE VENTILATOR; TEMP CORR TO 98.6
[2017-01-27 00:40] LABS: DRAW SITE ART LINE; FIO2 70 %; STAT NO; VENT SETTINGS VAC/20/500/PEEP8
[2017-01-27 00:57] LABS: LACTIC ACID GHOST NOT REPORTABLE
--- NOTE | 2017-01-27 01:05 | HHI.HP ---
[facility] Critical Care Medicine Primary Care Physician Krishna San MD Admission Diagnosis asystolic cardiac arrest Diagnosis: Travel History International Travel<30 Days: No Contact w/Intl Traveler <30 Da: No Traveled to Known Affected Are: No (uto) History of Present Illness 71 year-old woman, multiple medical problems, presents to the emergency department following cardiac arrest. Patient was reportedly last seen around 4 hours or so before she was found unresponsive. She had no pulse. CPR was started. EMS found the patient asystolic. They continued ACLS, intubation, 3 rounds of epi, some bicarbonate. The return of spontaneous circulation and patient presented to the ED hypotensive but with pulses. No other history is available. Review of Systems ROS Unobtainable Past Family Social History Allergies: Coded Allergies: Adhesives (Verified Allergy, Severe, RASK, 01/26/17) skin breakdown Calcium Channel Blockers (Verified Allergy, Severe, DIFFICULTY BREATHING, 01/26/17) Entex LA (Verified Allergy, Severe, Anaphylaxis, 01/26/17) Marcaine (Verified Allergy, Severe, DIFFICULTY BREATHING, 01/26/17) Minocin (Verified Allergy, Severe, DIFFICULTY BREATHING, 01/26/17) Nonsteroidal Anti-Inflammatory Agts (Verified Allergy, Severe, DIFFICULTY BREATHING, 01/26/17) PEANUTS (Verified Allergy, Severe, lips swelling, 01/26/17) Penicillin (Verified Allergy, Severe, DIFFICULTY BREATHING, 01/26/17) Prilosec (Verified Allergy, Severe, DIFFICULTY BREATHING, 01/26/17) Promethazine (Verified Allergy, Severe, DIFFICULTY BREATHING, 01/26/17) Sulfa (Verified Allergy, Severe, DIFFICULTY BREATHING, 01/26/17) Prednisone (Verified Allergy, Intermediate, rash and lips swell, 01/26/17) Zyrtec (Verified Allergy, Intermediate, rash, 01/26/17) Vancomycin (Verified Allergy, Mild, Flushing, 01/26/17) lips tingling Zyprexa (Verified Adverse Reaction, Severe, Severe vomiting., 01/26/17) Fluticasone (Verified Adverse Reaction, Intermediate, Rawness of the skin around the nose. Inhaled steroids do , 01/26/17) the same to her mouth. Omeprazole (Verified Adverse Reaction, Intermediate, [place] funny, 01/26/17) Zithromax (Verified Adverse Reaction, Intermediate, Says it made her jittery and it was harder to breathe. 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 Not sure would get same reaction to Injectable. Lian Huber MD. Jacob (Adverse Reaction, Severe, Caused amnesia and a fall. , 07/10/13) Past Medical History A. fib, reportedly on Xarelto COPD History of the lung cancer Hypertension CHF CAD GI disorders GERD Headaches Anxiety, major depression Hypothyroidism Diabetes Past Surgical History Unobtainable Reported Medications Reported Meds & Active Scripts Active Hydrocodone-Acetaminophen 5-325 mg Tab 1 Tab PO Q6H PRN 14 Days Furosemide 20 Mg Tab 20 Mg PO DAILY Albuterol Neb (Albuterol Sulfate) 2.5 Mg/3 Ml Neb 2.5 Mg INH Q2HR NEB PRN Creon (Amylase/Lipase/Protease) 24,000-76,000-120,000 Units Cap 1 Cap PO TID Reported Milk of Magnesia Liq (Magnesium Hydroxide) 400 Mg/5 Ml Susp 30 Ml PO Q4HR PRN Xanax (Alprazolam) 0.5 Mg Tab 0.5 Mg PO Q4H PRN Seroquel (Quetiapine Fumarate) 100 Mg Tab 100 Mg PO TID Xarelto (Rivaroxaban) 20 Mg Tab 20 Mg PO DAILY Antacid Anti-Gas Regular Liq (Gtjilmup-Pdhqhicbb-Dbbimtgpoxl Liq) 200-200-20 Mg/ 5 Ml Susp 30 Ml PO Q8HR Loperamide (Loperamide HCl) 2 Mg Tablet 4 Mg PO INITIAL DOSE PRN After initial dose, give 1 tab (2mg) after each loose stool Not to exceed 8 tabs/24hrs Enema Disposable (Sodium Phosphates) 1 Jasmin Jasmin 1 Applic RECTAL DAILY PRN As needed if no results from Dulcolax Dulcolax Supp (Bisacodyl) 10 Mg Supp 10 Mg RECTAL DAILY PRN As needed if no results from Milk of Mag Tylenol (Acetaminophen) 325 Mg Tab 650 Mg PO Q4H PRN Duloxetine DR (Duloxetine HCl) 60 Mg Capdr 60 Mg PO DAILY Melatonin 3 Mg Tab 3 Mg PO HS Antacid II-Simethicone Liq (Mag Hydrox/Aluminum Hyd/Simeth) 360 Ml Oral.susp 30 Ml PO Q4HR PRN Aspir-81 (Aspirin) 81 Mg Tabdr 81 Mg PO DAILY Enalapril (Enalapril Maleate) 20 Mg Tab 20 Mg PO DAILY Metoprolol Tartrate 25 Mg Tab 25 Mg PO Q8HR Levothyroxine (Levothyroxine Sodium) 50 Mcg Tab 50 Mcg PO DAILY Zantac 150 Maximum Strength (Ranitidine HCl) 150 Mg Tab 150 Mg PO BID Potassium Chloride ER (Potassium Chloride) 10 Meq Cap 10 Meq PO DAILY Active Ordered Medications Current Medications Medications (Trade) Dose Ordered Sig/Lorie Route PRN Reason Start Time Stop Time Status Last Admin Dose Admin Norepinephrine Bitartrate (Levophed-Dextrose Drip) 250 ml @ 0 mls/hr TITRATE IV 01/26/17 22:45 01/26/17 23:05 Terbutaline Sulfate (Brethine Inj) 1 mg UNSCH PRN SQ For Extravasation 01/26/17 22:45 Acetaminophen (Tylenol) 650 mg Q4H PRN PO Pain/Discomfort/Temp >101 01/27/17 00:15 UNV Alprazolam (Xanax) 0.5 mg Q4H PRN PO ANXIETY 01/27/17 00:15 Aspirin (Ecotrin Ec) 81 mg DAILY PO 01/27/17 09:00 UNV Levothyroxine Sodium (Synthroid) 50 mcg DAILY@0600 PO 01/27/17 06:00 Metoprolol Tartrate (Lopressor) 25 mg Q8HR PO 01/27/17 06:00 Amylase/Lipase/ Protease (Creon 24-76-120) 1 cap TID PO 01/27/17 09:00 Quetiapine Fumarate (SEROquel) 100 mg TID PO 01/27/17 09:00 Rivaroxaban (Xarelto) 20 mg DAILY PO 01/27/17 09:00 UNV Non-Formulary Medication 150 mg 150 mg BID PO 01/27/17 09:00 UNV Sodium Chloride (NS 1000 ml Inj) 1,000 ml @ 84 mls/hr [id number] IV 01/27/17 00:11 Sodium Chloride (NS Flush) 2 ml UNSCH PRN .XX FLUSH AFTER USING IV ACCESS 01/27/17 00:15 Sodium Chloride (NS Flush) 2 ml BID .XX 01/27/17 09:00 Acetaminophen (Tylenol) 650 mg Q6H PRN PO PAIN 1-10 AND/OR FEVER >101F 01/27/17 00:15 UNV Midazolam HCl (Versed Inj) 2 mg Q1H PRN IV SEDATION 01/27/17 00:15 Ondansetron HCl (Zofran Inj) 4 mg Q6H PRN IV NAUSEA OR VOMITING 01/27/17 00:15 Miscellaneous Information 1 Q361D XX 01/27/17 00:15 Chlorhexidine Gluconate (Chlorhexidine 2% Cloth) 3 pack Taper DAILY@04 TOP 01/27/17 04:00 01/23/18 03:59 Chlorhexidine Gluconate (Chlorhexidine 2% Cloth) 3 pack UNSCH PRN TOP HYGIENIC CARE 01/27/17 00:15 Senna/Docusate Sodium (Gwen-Colace) 1 tab BID PO 01/27/17 09:00 Magnesium Hydroxide (Milk Of Magnesia Liq) 30 ml Q12H PRN PO MILD - MODERATE CONSTIPATION 01/27/17 00:15 Sennosides (Senokot) 17.2 mg Q12H PRN PO MODERATE - SEVERE CONSTIPATION 01/27/17 00:15 Bisacodyl (Dulcolax Supp) 10 mg DAILY PRN RECTAL SEVERE CONSITIPATION 01/27/17 00:15 Lactulose (Lactulose Liq) 30 ml DAILY PRN PO SEVERE CONSITIPATION 01/27/17 00:15 Family History Unobtainable Social History Per chart review negative history of illicit drug alcohol or tobacco abuse Physical Exam Vital Signs Vital Signs Date Time Temp Pulse Resp B/P Pulse Ox O2 Delivery O2 Flow Rate FiO2 01/26/17 23:45 100 70 01/26/17 23:30 100 100 01/26/17 22:21 63 20 130/59 100 70 01/26/17 22:12 70 01/26/17 22:10 80 20 100 Ventilator 70 01/26/17 22:07 80 16 165/84 100 100 01/26/17 22:02 98.9 75 18 109/53 100 01/26/17 22:00 100 70 01/26/17 21:58 80 16 109/53 100 01/26/17 21:50 100 70 01/26/17 21:45 100 15.00 100 Physical Exam GENERAL: Obese elderly female unresponsive and intubated. SKIN: Warm and dry. HEAD: Normocephalic. EYES: No scleral icterus. No injection or drainage. NECK: Supple, trachea midline. No JVD or lymphadenopathy. CARDIOVASCULAR: Regular rate and rhythm without murmurs, gallops, or rubs. RESPIRATORY: Breath sounds equal bilaterally. No accessory muscle use. GASTROINTESTINAL: Abdomen soft, non-tender, nondistended. MUSCULOSKELETAL: No cyanosis, or edema. BACK: Nontender without obvious deformity. No CVA tenderness. EXTREMITIES: No clubbing or cyanosis Laboratory Laboratory Tests Test 01/26/17 01/26/17 01/27/17 01/27/17 22:42 23:00 00:04 00:30 Prothrombin Time 16.1 Prothromb Time International 1.4 Ratio Activated Partial 29.9 Thromboplast Time Sodium Level 134 Potassium Level 4.2 Chloride Level 96 Carbon Dioxide Level 28.1 Anion Gap 10 Blood Urea Nitrogen 11 Creatinine 1.44 Estimat Glomerular Filtration 36 Rate Random Glucose 121 Lactic Acid Level 5.5 Calcium Level 7.8 Magnesium Level 2.1 Total Bilirubin 0.7 Aspartate Amino Transf 34 (AST/SGOT) Alanine Aminotransferase 15 (ALT/SGPT) Alkaline Phosphatase 72 Troponin I 0.05 Total Protein 5.5 Albumin 2.6 Lipase 109 White Blood Count 9.6 Red Blood Count 2.78 Hemoglobin 8.3 Hematocrit 25.7 Mean Corpuscular Volume 92.6 Mean Corpuscular Hemoglobin 29.7 Mean Corpuscular Hemoglobin 32.1 Concent Red Cell Distribution Width 18.9 Platelet Count 208 Mean Platelet Volume 8.7 Neutrophils (%) (Auto) 76.1 Lymphocytes (%) (Auto) 14.5 Monocytes (%) (Auto) 5.8 Eosinophils (%) (Auto) 3.2 Basophils (%) (Auto) 0.4 Neutrophils # (Auto) 7.3 Lymphocytes # (Auto) 1.4 Monocytes # (Auto) 0.6 Eosinophils # (Auto) 0.3 Basophils # (Auto) 0.0 CBC Comment DIFF FINAL Differential Comment Blood Gas Puncture Site ART LINE ART LINE Blood Gas Patient Temperature 98.6 98.6 Blood Gas HCO3 25 24 Blood Gas Base Excess 1.2 0.8 Blood Gas Oxygen Saturation 98 98 Arterial Blood pH 7.44 7.46 Arterial Blood Partial 38 35 Pressure CO2 Arterial Blood Partial 215 167 Pressure O2 Arterial Blood Oxygen Content 11.6 11.7 Arterial Blood 1.7 1.7 Carboxyhemoglobin Arterial Blood Methemoglobin 0.4 0.3 Blood Gas Hemoglobin 8.0 8.3 Oxygen Delivery Device VENTILATOR VENTILATOR Blood Gas Ventilator Setting VAC20/500/8 VAC/20/500/PEEP8 Blood Gas Inspired Oxygen 70 70 Urine Color YELLOW Urine Turbidity HAZY Urine pH 7.5 Urine Specific [place] 1.010 Urine Protein 300 Urine Glucose (UA) NEG Urine Ketones NEG Urine Occult Blood SMALL Urine Nitrite NEG Urine Bilirubin NEG Urine Urobilinogen LESS THAN 2.0 Urine Leukocyte Esterase NEG Urine RBC 5 Urine WBC 16 Urine Amorphous Sediment FEW Urine Bacteria OCC Urine Mucus FEW Microscopic Urinalysis Comment CATH-CULTURE IND Date/Time Procedure Status Source Growth 01/27/17 00:04 Urine Culture Received Urine Catheterized Urine Pending 01/26/17 22:42 Aerobic Blood Culture Received Blood Peripheral Pending 01/26/17 22:42 Anaerobic Blood Culture Received Blood Peripheral Pending Result Diagram: 01/26/17 2242 01/26/17 2242 Imaging Last [address] 01/26/172235 Signed Impressions: Service Date/Time: Thursday, January 26, 2017 23:36 - CONCLUSION: 1. Moderate amount of fluid in the sinuses involving the maxillary, ethmoid, and sphenoid sinuses. High density fluid is seen at the dependent portion of the left maxillary sinus. This may represent hemorrhagic material or proteinaceous material. Polyp or retention cyst is again seen in the left maxillary sinus. The fluid is new compared to the prior study of 01/07/2017. 2. No acute intracranial findings. Larry Curiel MD Chest X-Ray 01/26/172235 Signed Impressions: Service Date/Time: Thursday, January 26, 2017 22:35 - CONCLUSION: 1. Near-complete opacification of the right hemithorax again seen. 2. Endotracheal tube and nasogastric tube now in place. Larry Curiel MD Assessment and Plan Assessment and Plan Respiratory failure - Postcardiac arrest - Continue intubation and mechanical ventilation until neurologically improved - Chest x-ray and ABG daily A. fib - Continue on Xarelto - Rate controlled with metoprolol COPD - No exacerbation - No indication for steroids - DuoNeb scheduled and when necessary History of the lung cancer - Obtain advanced directives - Supportive care Status postcardiac arrest - Unknown down time - Unknown duration postcardiac arrest - not the candidate for hypothermia protocol - History of Hypertension, CHF, CAD - Series of troponins and EKG - Cardiology consult Anxiety, major depression - Continue home meds Hypothyroidism - Levothyroxine Diabetes - Insulin sliding scale DVT GI prophylaxis - Xarelto and Pepcid Critical Care: The total critical care time was 35 minutes. Time to perform other separately billable procedures was not included in the critical care time. Christian Goldsmith MD Jan 27, 2017 01:05
[2017-01-27] MEDS: RESP: ALBUTEROL 2.5 MG/IPRATROPIUM 0.5 MG NEB (SCH) INH ×4 (03:42→20:11)
[2017-01-27] MEDS: CHLORHEXIDINE GLUCONATE 2 % 1 PACK (2 CLOTHS) TOP SCH (04:00)
[2017-01-27] MEDS ORDERED: EPINEPHrine HCL (1:10,000) 1 MG/10 ML SYRINGE IV ONE (05:00)
[2017-01-27 05:31] LABS: BLOOD GAS CARBOXYHEMOGLOBIN 1.5 % (0-4); BLOOD GAS HCO3 24 mmol/L (22-26); BLOOD GAS METHEMOGLOBIN 0.9 % (0-2); BLOOD GAS O2 HGB SATURATION 97 % (90-100); BLOOD GAS OXYGEN CONTENT 12.7 Vol % (12.0-20.0); BLOOD GAS PCO2 49 mmHg (38-42); BLOOD GAS PO2 229 mmHg (61-120); BLOOD GAS TOTAL HGB 8.8 G/DL (12.0-16.0); TEMP CORR TO 98.6
[2017-01-27 05:32] LABS: CRITICAL VALUE NO; OXYGEN DEVICE VENT; VENT SETTINGS SEE COMMENTS
[2017-01-27 05:33] LABS: DRAW SITE ART LINE; FIO2 100 %; STAT NO; ULNAR PULSE PRESENT
--- NOTE | 2017-01-27 05:43 | RADRPT ---
EXAM DATE/TIME: 01/27/2017 04:20 [place] COMPARISON: CHEST SINGLE AP, January 26, 2017, 22:35. INDICATIONS : Respiratory failure. MEDICAL HISTORY : None. SURGICAL HISTORY : None. ENCOUNTER: Subsequent ACUITY: 4 - 6 days PAIN SCORE: Non-responsive. LOCATION: Bilateral chest FINDINGS: Single AP view of the chest. Endotracheal tube and nasogastric tube remain in place. Near-complete op acification of the right hemithorax again seen. Left lung clear. CONCLUSION: No significant change with persistent near-complete opacification of the right hemithorax. Larry Curiel MD on January 27, 2017 at 5:41 Board Certified Radiologist. This report was verified electronically.
[2017-01-27] MEDS: LEVOTHYROXINE SODIUM 50 MCG TAB PO SCH (06:53)
[2017-01-27] MEDS: METOPROLOL TARTRATE 25 MG TAB PO SCH ×3 (06:53→21:56)
[2017-01-27] MEDS: SODIUM CHLOR 0.9% 1000 ML INJ 1,000 ML IV SCH ×2 (06:54→12:06)
[2017-01-27] MEDS: ASPIRIN EC 81 MG TABEC PO SCH (08:36)
[2017-01-27] MEDS: LIPASE/PROTEASE/AMYLASE (24,000/76,000/120,000) CAP PO SCH ×3 (08:37→18:07)
[2017-01-27] MEDS: SODIUM CHLORIDE 0.9% FLUSH 10 ML FLUSH SCH ×2 (08:37→19:39)
--- NOTE | 2017-01-27 08:38 | EKG ---
Date Performed: 01/26/2017 Time Performed: 22:24:01 PTAGE: 71 years EKG: POSSIBLE ATRIAL FIBRILLATION WITH A SLOW VENTRICULAR RESPONSE RIGHT AXIS DEVIATION RIGHT BU NDLE BRANCH BLOCK ABNORMAL ECG PREVIOUS TRACING : 11/26/2016 07.08 Compared to previous tracing, heart rate has slowed, right bundle branch block pattern is now evident. DOCTOR: Robi Fine Interpretating Date/Time 01/27/2017 08:36:51
[2017-01-27] MEDS: FAMOTIDINE 20 MG TAB PO SCH ×2 (08:41→19:38)
[2017-01-27] MEDS ORDERED: RIVAROXABAN 20 MG TAB PO SCH (09:00)
[2017-01-27] MEDS ORDERED: QUEtiapine FUMARATE 100 MG TAB PO SCH (09:00)
[2017-01-27] MEDS: DOCUSATE SODIUM 50 MG/SENNA 8.6 MG TAB PO SCH ×2 (09:00→19:38)
--- NOTE | 2017-01-27 10:46 | MB ---
cc: JENY RIOS DATE OF CONSULTATION 01/27/2017 REASON FOR CONSULTATION Ms. Tillman is a 71 year-old white female who was found unresponsive, pulseless in her current jail. CPR was started. She was intubated and had return of spontaneous circulation but no neurologic response. She was admitted to the ICU and has been on the ventilator. PAST MEDICAL HISTORY Positive for: 1. Chronic atrial fibrillation on Xarelto 2. COPD 3. Lung cancer 4. Hypertension 5. Congestive heart failure 6. Coronary artery disease 7. Gastroesophageal reflux disease 8. Headaches 9. Anxiety 10. Depression 11. Hypothyroidism 12. Diabetes mellitus MEDICATIONS Include: 1. Potassium 2. Zantac 3. Levothyroxine 4. Metoprolol 5. Enalapril 6. Baby aspirin 7. Antacid 8. Melatonin 9. Duloxetine 10. Tylenol p.r.n. 11. Dulcolax p.r.n. 12. Loperamide p.r.n. 13. Xarelto 20 mg a day 14. Seroquel 15. Xanax 16. Milk of magnesia 17. Albuterol 18. Furosemide 19. Hydrocodone/acetaminophen ALLERGIES EPINEPHRINE, POSSIBLY ALBUTEROL, KLONOPIN. SOCIAL HISTORY The patient does not smoke. She does not use alcohol. She lives in a jail. FAMILY HISTORY Not known at this time. REVIEW OF SYSTEMS Otherwise negative. PHYSICAL EXAMINATION VITAL SIGNS: Blood pressure 126/54, pulse 60 and irregular. HEENT: The patient is intubated. NECK: 2+ carotid upstrokes. LUNGS: Clear. HEART: Irregular with no murmur, gallop or rub. ABDOMEN: Soft, obese. No bruits. EXTREMITIES: Without edema. 1 to 2+ pulses. NEUROLOGIC: Grossly normal neurologic exam. The patient is unresponsive. She does not react to pain or stimuli. EKG was reviewed and showed atrial fibrillation with controlled ventricular response, right axis, right bundle-branch block. Telemetry shows atrial fibrillation with controlled ventricular response. LABORATORY DATA Hemoglobin 8.3, potassium 4.2, creatinine 1.44, AST 34, ALT 15, troponin 0.05 and 0.2. DIAGNOSIS 1. Cardiac arrest, asystole 2. Chronic atrial fibrillation 3. COPD 4. History of lung cancer 5. Diabetes mellitus 6. Anoxic encephalopathy Ms. Tillman will be monitored in the ICU. At this time, she appears to have severe anoxic encephalopathy. I recommend a neurologic evaluation including an EEG. I will follow her for cardiology and hospitalization. Unless an neurologic status improves, no further cardiac ablation will be proceeded at this time. MD EMELINA Prieto/STEPHANIE /8:39 AM /10:31 AM
[2017-01-27] MEDS ORDERED: PROPOFOL 1000 MG/100 ML INJ 100 ML ONE (11:36)
[2017-01-27] MEDS ORDERED: ACETAMINOPHEN 1000 MG/100 ML VIAL IV PRN (11:45)
[2017-01-27] MEDS ORDERED: NITROGLYCERIN 2% OINT 1 GM PACKET TOPICAL PRN (12:30)
[2017-01-27] MEDS ORDERED: hydrALAZINE HCL 20 MG/ML VIAL IV PUSH PRN (12:30)
--- NOTE | 2017-01-27 12:39 | PD.CONS ---
Consult Service Palliative Care Consult Requested By Dr. Cornelius. Primary Care Physician Krishna San MD Reason for Consultation a. To assist with evaluation and management of symptoms including: Shortness of breath and debility. b. To assist medical decision maker(s) with: better understanding of current medical conditions; weighing benefits/burdens of medical treatment options; making medical treatment decisions. . HPI History of Present Illness Mrs. Tillman is a 71-year-old female, known to palliative care services. This is patient's 7th of acute hospitalization this year, multiple prior hospitalizations and frequent ED visits during the past 12 months. Patient with a past medical history of COPD, A. fib on anticoagulation, hypertension, CHF, among other multiple chronic comorbidities. Patient presented from [facility] via EMS secondary to unwitnessed cardiac arrest. As per medical records, patient was found unresponsive, she had no pulse. CPR was started. EMS found patient asystolic, ACLS started requiring 3 rounds of epinephrine and bicarbonate. ROSC obtained. Patient presented to ED hypotensive but with a pulse. CT of the head negative for acute process. Chest x-ray revealing near complete opacification of the right hemithorax. Patient was admitted for further management. Palliative care has been consulted for further clarifications of goals of care given poor prognosis for survival. Reviewed past medical history and prior acute hospitalizations and ED visits. Patient with documented physical decline, worsen since October 2016. Multiple acute hospitalizations to see her, this is patient's seventh admission. Most recent 01/07/17 to 01/10/17 secondary to altered mental status and anemia. Patient was discharged to [facility]. Multiple hospitalizations secondary to COPD exacerbation, hypoxia, CHF and pneumonia. Cardiology, Dr. Borrego consulted on 01/27/17 for evaluation. Patient appears to have severe anoxic encephalopathy. Neurological evaluation including EEG recommended. Pending consultation. Laboratory workup 01/26/17 revealing WBC 9.6 , Hgb 8.3, platelet count 208. Sodium 144, potassium 4.2, BUN/creatinine 11/ 1.44. Lactic acid 5.5 yesterday, 1.8 this morning. Liver enzymes within normal limits. Troponin 0.22. Checks x-ray today showing persistent near- complete opacification of the right hemithorax. Patient seen in ICU, she remains orally intubated on mechanical ventilation. Unresponsive to verbal or tactile stimuli. Eyes open, no corneal reflex noted. Myoclonic-like jaw movements noted, frothy oral secretions. Max temp 101.3. Stable hemodynamically. Currently on 100% FiO2, oxygen saturation in the mid 80s. Telephone conversation with patient's son Larry Tillman. Medical update provided. Palliative care to follow-up with bedside conversation, son to visit patient within the next hour. Case has been discussed with Dr. Cornelius and bedside RN Jerardo. 12:45. Met patient's son family friend Fior Calix at bedside. Medical update provided. Son tells me that he had an opportunity to talk with Dr. Cornelius. Goal of care at this time is to allow the weekend to evaluate patient's clinical condition and prognosis, code remains FULL at this time. Risks, benefits and limitations of CPR were discussed with son, he verbalized understanding. Son was made aware that patient's clinical condition is critical and that she will not likely survive this hospitalization. . Function/Cognitive Trajectory Patient residing independently with frequent home health up to acute hospitalization in October 2016. At that time, she was discharged to [facility]. Currently at [facility] since December 09, 2016. Reported progressive physical decline, O2 dependent at home secondary to COPD. Multiple hospitalizations within the past 12 months. In February, the patient reported having increased difficulty caring for herself secondary to weakness and fatigue. She reported dyspnea with minimal exertion, stating she could only walk 10-15 feet independently before becoming short of breath. . Review of Systems ROS Limitations: Clinical Condition, Intubated, Unresponsive Constitutional: DENIES: Fatigue Endocrine: DENIES: Heat/cold intolerance Respiratory: COMPLAINS OF: Shortness of breath, DENIES: Cough Cardiovascular: COMPLAINS OF: Chest pain, Dyspnea on Exertion Gastrointestinal: DENIES: Diarrhea, Nausea Musculoskeletal: COMPLAINS OF: Decreased range of motion Hematologic/Lymphatics: COMPLAINS OF: Bruising Neurologic: COMPLAINS OF: Abnormal gait, Poor Balance Psychiatric: COMPLAINS OF: Anxiety, Depression Other ROS: Limited ROS secondary to clinical condition, patient intubated and unresponsive. ROS obtained from medical records and clinical observation. Past Family Social History Coded Allergies: Adhesives (Verified Allergy, Severe, RASK, 01/26/17) skin breakdown Calcium Channel Blockers (Verified Allergy, Severe, DIFFICULTY BREATHING, 01/26/17) Entex LA (Verified Allergy, Severe, Anaphylaxis, 01/26/17) Marcaine (Verified Allergy, Severe, DIFFICULTY BREATHING, 01/26/17) Minocin (Verified Allergy, Severe, DIFFICULTY BREATHING, 01/26/17) Nonsteroidal Anti-Inflammatory Agts (Verified Allergy, Severe, DIFFICULTY BREATHING, 01/26/17) PEANUTS (Verified Allergy, Severe, lips swelling, 01/26/17) Penicillin (Verified Allergy, Severe, DIFFICULTY BREATHING, 01/26/17) Prilosec (Verified Allergy, Severe, DIFFICULTY BREATHING, 01/26/17) Promethazine (Verified Allergy, Severe, DIFFICULTY BREATHING, 01/26/17) Sulfa (Verified Allergy, Severe, DIFFICULTY BREATHING, 01/26/17) Prednisone (Verified Allergy, Intermediate, rash and lips swell, 01/26/17) Zyrtec (Verified Allergy, Intermediate, rash, 01/26/17) Vancomycin (Verified Allergy, Mild, Flushing, 01/26/17) lips tingling Zyprexa (Verified Adverse Reaction, Severe, Severe vomiting., 01/26/17) Fluticasone (Verified Adverse Reaction, Intermediate, Rawness of the skin around the nose. Inhaled steroids do , 01/26/17) the same to her mouth. Omeprazole (Verified Adverse Reaction, Intermediate, [place] funny, 01/26/17) Zithromax (Verified Adverse Reaction, Intermediate, Says it made her jittery and it was harder to breathe. 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 Not sure would get same reaction to Injectable. Lian Huber MD. Jermaineonapen (Adverse Reaction, Severe, Caused amnesia and a fall. , 07/10/13) Past Medical History CHF (chronic, diastolic) COPD, O2 dependent CAD s/p NM x2 Neck abscess (drained 02/19/16) Esophageal Stricture, s/p esophageal dilation 08/2015 Small Cell Lung Cancer 04/21 s/p Chemo & Radiation Diverticulosis Afib, on anticoagulation Depression Anxiety HTN Hypothyroidism Dementia Left renal mass . Past Surgical History Vocal Cord Polypectomy ' Breast Bx Laparoscopic Choly Esophageal Dilations Recurrent PortaCath Removed in 11/24 Bilateral Cataracts Permanent IVC filter placed 08/30 Rhinolaryngoscopy 2011 Cardiac Cath in 2002 Cardiac Cath 01/26 Dr Essie Paz at [facility] Permanent IVC filter placed 08/30 EGD and Colonoscopy at [facility] 08/30 Status post bronchoscopy, lung biopsy 06/2016benign findings . Reported Medications Hydrocodone-Acetaminophen 5-325 mg Tab 1 Tab PO Q6H PRN 14 Days Furosemide 20 Mg Tab 20 Mg PO DAILY Albuterol Neb (Albuterol Sulfate) 2.5 Mg/3 Ml Neb 2.5 Mg INH Q2HR NEB PRN Creon (Amylase/Lipase/Protease) 24,000-76,000-120,000 Units Cap 1 Cap PO TID Milk of Magnesia Liq (Magnesium Hydroxide) 400 Mg/5 Ml Susp 30 Ml PO Q4HR PRN Xanax (Alprazolam) 0.5 Mg Tab 0.5 Mg PO Q4H PRN Seroquel (Quetiapine Fumarate) 100 Mg Tab 100 Mg PO TID Xarelto (Rivaroxaban) 20 Mg Tab 20 Mg PO DAILY Antacid Anti-Gas Regular Liq (Iatwmfog-Xoaodguen-Jaixfsdczna Liq) 200-200-20 Mg/ 5 Ml Susp 30 Ml PO Q8HR Loperamide (Loperamide HCl) 2 Mg Tablet 4 Mg PO INITIAL DOSE PRN Enema Disposable (Sodium Phosphates) 1 Jasmin Jasmin 1 Applic RECTAL DAILY PRN Dulcolax Supp (Bisacodyl) 10 Mg Supp 10 Mg RECTAL DAILY PRN Tylenol (Acetaminophen) 325 Mg Tab 650 Mg PO Q4H PRN Duloxetine DR (Duloxetine HCl) 60 Mg Capdr 60 Mg PO DAILY Melatonin 3 Mg Tab 3 Mg PO HS Antacid II-Simethicone Liq (Mag Hydrox/Aluminum Hyd/Simeth) 360 Ml Oral.susp 30 Ml PO Q4HR PRN Aspir-81 (Aspirin) 81 Mg Tabdr 81 Mg PO DAILY Enalapril (Enalapril Maleate) 20 Mg Tab 20 Mg PO DAILY Metoprolol Tartrate 25 Mg Tab 25 Mg PO Q8HR Levothyroxine (Levothyroxine Sodium) 50 Mcg Tab 50 Mcg PO DAILY Zantac 150 Maximum Strength (Ranitidine HCl) 150 Mg Tab 150 Mg PO BID Potassium Chloride ER (Potassium Chloride) 10 Meq Cap 10 Meq PO DAILY . Current Medications Medications (Trade) Dose Ordered Sig/Lorie Route Start Time Stop Time Status Last Admin (Levophed-Dextrose Drip) 250 ml @ 0 mls/hr TITRATE IV 01/26/17 22:45 01/26/17 23:05 (Brethine Inj) 1 mg UNSCH PRN SQ 01/26/17 22:45 (Ecotrin Ec) 81 mg DAILY PO 01/27/17 09:00 01/27/17 08:36 (Synthroid) 50 mcg DAILY@0600 PO 01/27/17 06:00 01/27/17 06:53 (Lopressor) 25 mg Q8HR PO 01/27/17 06:00 01/27/17 06:53 (Creon 24-76-120) 1 cap TID PO 01/27/17 09:00 01/27/17 08:37 Famotidine 10 mg 10 mg Q12HR PO 01/27/17 09:00 01/27/17 08:41 (NS 1000 ml Inj) 1,000 ml @ 84 mls/hr [id number] IV 01/27/17 00:11 01/27/17 06:54 (NS Flush) 2 ml UNSCH PRN .XX 01/27/17 00:15 (NS Flush) 2 ml BID .XX 01/27/17 09:00 01/27/17 08:37 (Versed Inj) 2 mg Q1H PRN IV 01/27/17 00:15 (Zofran Inj) 4 mg Q6H PRN IV 01/27/17 00:15 Miscellaneous Information 1 Q361D XX 01/27/17 00:15 (Chlorhexidine 2% Cloth) 3 pack Taper DAILY@04 TOP 01/27/17 04:00 01/23/18 03:59 01/27/17 04:00 (Chlorhexidine 2% Cloth) 3 pack UNSCH PRN TOP 01/27/17 00:15 (Gwen-Colace) 1 tab BID PO 01/27/17 09:00 01/27/17 09:00 (Milk Of Magnesia Liq) 30 ml Q12H PRN PO 01/27/17 00:15 (Senokot) 17.2 mg Q12H PRN PO 01/27/17 00:15 (Dulcolax Supp) 10 mg DAILY PRN RECTAL 01/27/17 00:15 (Lactulose Liq) 30 ml DAILY PRN PO 01/27/17 00:15 (Ofirmev Inj) 1,000 mg Q8HR PRN IV 01/27/17 11:45 UNV Chlorhexidine Gluconate 15 ml 15 ml BID@08,20 MT 01/27/17 20:00 UNV (Versed 100 Mg/ ml Inj) 100 ml @ 0 mls/hr TITRATE IV 01/27/17 11:45 UNV Family History Familial history of alcoholism, substance abuse, suicidal ideation, depression and anxiety. Patient's mother committed suicide when she was 55 years old with a pistol. Her brother shot and killed himself at the age of 46. She also had a 16 year old niece who hung herself. Patient's brother, who is a smoker, had cancer of the larynx. One of the patient's sisters has gout and renal cancer, another sister has polyposis. The patient's oldest sister has rheumatoid arthritis. . Substance Use Tobacco: Remote smoker. Quit in . Alcohol: Denies. Prescription med abuse: None reported. Illicits: None reported. . Psychosocial History Ms. Tillman is originally from the [facility]. She moved to [place] approximately 48 years ago. She her in 1985. Together they had one son ( Larry Tillman), who lives locally. 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 She had 4 sisters and 2 brothers, one brother is . She quit going to school in ninth grade and was by the age of 19. . Spiritual/Cultural Factors Holiness adeline. . Living Will: Never completed Health Care Surrogate: Copy in medical record Date completed: 03/16/2016. . Health Care Surrogate(s): HCS/son Larry Tillman. . Documented care wishes: No living will completed. . Family/friends goals: Full code. Goal of care at this time is to allow the weekend to reevaluate patient's clinical condition and prognosis. . Ethical and Legal Issues No ethical legal issues identified. . Physical Exam Vital Signs Date Time Temp Pulse Resp B/P Pulse Ox O2 Delivery O2 Flow Rate FiO2 01/27/17 10:00 61 01/27/17 08:00 62 01/27/17 08:00 101.3 62 26 145/63 86 01/27/17 07:48 100 01/27/17 07:35 91 100 01/27/17 06:00 60 01/27/17 05:00 94 100 01/27/17 04:08 98 70 01/27/17 04:00 51 01/27/17 04:00 98.2 51 20 126/54 100 01/27/17 02:00 48 01/27/17 02:00 70 01/27/17 01:30 48 01/27/17 01:13 70 01/27/17 01:09 97.0 49 26 133/61 100 01/27/17 01:05 100 70 01/27/17 00:52 100 100 01/26/17 23:45 100 70 01/26/17 23:30 100 100 01/26/17 22:21 63 20 130/59 100 70 01/26/17 22:12 70 01/26/17 22:10 80 20 100 Ventilator 70 01/26/17 22:07 80 16 165/84 100 100 01/26/17 22:02 98.9 75 18 109/53 100 01/26/17 22:00 100 70 01/26/17 21:58 80 16 109/53 100 01/26/17 21:50 100 70 01/26/17 21:45 100 15.00 100 01/26/17 01/27/17 18:59 06:59 Intake Total 176 ml Output Total 45 ml Balance 131 ml IV Total 176 ml Output Urine Total 45 ml Exam CONSTITUTIONAL/GENERAL: This is an elderly frail female in moderate distress, myoclonic-type jaw movement noted. Unresponsive. TUBES/LINES/DRAINS: ETT, OG, right femoral central line, Barnett catheter, PIV's. SKIN: No jaundice, rashes, or lesions. Ecchymoses on upper extremities. No wounds seen anteriorly. Skin temperature appropriate. Not diaphoretic. HEAD: Atraumatic. Normocephalic. EYES: No corneal reflex noted. No scleral icterus. No injection or drainage. ENT: Unable to evaluate hearing secondary to clinical condition. Nose without bleeding or purulent drainage. Moist oral mucosa, frothy oral secretions noted. NECK: Trachea midline. Supple. CARDIOVASCULAR: Irregular rate and rhythm without murmurs, gallops, or rubs. Mottling of bilateral lower extremities noted. RESPIRATORY/CHEST: Symmetric, abdominal breathing noted. Coarse breath sounds bilaterally. GASTROINTESTINAL: Abdomen soft, round, obese. No guarding. Bowel sounds present. GENITOURINARY: Without palpable bladder distension. Barnett catheter in place. MUSCULOSKELETAL: Extremities with osteoarthritic changes to all 4 extremities. NEUROLOGICAL: Unresponsive to verbal or tactile stimuli. Not sedated, not following any commands. Myoclonic-type jaw movement noted. PSYCHIATRIC: Unable to assess secondary to clinical condition. . Diagnostic Tests Laboratory Laboratory Tests Test 01/26/17 01/26/17 01/27/17 01/27/17 22:42 23:00 00:04 00:30 Prothrombin Time 16.1 SEC (9.8-11.6) Prothromb Time International 1.4 RATIO Ratio Activated Partial 29.9 SEC Thromboplast Time (24.3-30.1) Sodium Level 134 MEQ/L (136-145) Potassium Level 4.2 MEQ/L (3.5-5.1) Chloride Level 96 MEQ/L (98-107) Carbon Dioxide Level 28.1 MEQ/L (21.0-32.0) Anion Gap 10 MEQ/L (5-15) Blood Urea Nitrogen 11 MG/DL (7-18) Creatinine 1.44 MG/DL (0.50-1.00) Estimat Glomerular Filtration 36 ML/MIN (>89) Rate Random Glucose 121 MG/DL (74-106) Calcium Level 7.8 MG/DL (8.5-10.1) Magnesium Level 2.1 MG/DL (1.5-2.5) Total Bilirubin 0.7 MG/DL (0.2-1.0) Aspartate Amino Transf 34 U/L (15-37) (AST/SGOT) Alanine Aminotransferase 15 U/L (10-53) (ALT/SGPT) Alkaline Phosphatase 72 U/L (45-117) Troponin I 0.05 NG/ML (0.02-0.05) Total Protein 5.5 GM/DL (6.4-8.2) Albumin 2.6 GM/DL (3.4-5.0) Lipase 109 U/L (73-393) White Blood Count 9.6 TH/MM3 (4.0-11.0) Red Blood Count 2.78 MIL/MM3 (4.00-5.30) Hemoglobin 8.3 GM/DL (11.6-15.3) Hematocrit 25.7 % (35.0-46.0) Mean Corpuscular Volume 92.6 FL (80.0-100.0) Mean Corpuscular Hemoglobin 29.7 PG (27.0-34.0) Mean Corpuscular Hemoglobin 32.1 % Concent (32.0-36.0) Red Cell Distribution Width 18.9 % (11.6-17.2) Platelet Count 208 TH/MM3 (150-450) Mean Platelet Volume 8.7 FL (7.0-11.0) Neutrophils (%) (Auto) 76.1 % (16.0-70.0) Lymphocytes (%) (Auto) 14.5 % (9.0-44.0) Monocytes (%) (Auto) 5.8 % (0.0-8.0) Eosinophils (%) (Auto) 3.2 % (0.0-4.0) Basophils (%) (Auto) 0.4 % (0.0-2.0) Neutrophils # (Auto) 7.3 TH/MM3 (1.8-7.7) Lymphocytes # (Auto) 1.4 TH/MM3 (1.0-4.8) Monocytes # (Auto) 0.6 TH/MM3 (0-0.9) Eosinophils # (Auto) 0.3 TH/MM3 (0-0.4) Basophils # (Auto) 0.0 TH/MM3 (0-0.2) CBC Comment DIFF FINAL Differential Comment Lactic Acid Level 5.5 mmol/L (0.4-2.0) Blood Gas Puncture Site ART LINE ART LINE Blood Gas Patient Temperature 98.6 98.6 Blood Gas HCO3 25 mmol/L 24 mmol/L (22-26) (22-26) Blood Gas Base Excess 1.2 mmol/L 0.8 mmol/L (-2-2) (-2-2) Blood Gas Oxygen Saturation 98 % (90-100) 98 % (90-100) Arterial Blood pH 7.44 7.46 (7.380-7.420) (7.380-7.420) Arterial Blood Partial 38 mmHg (38-42) 35 mmHg (38-42) Pressure CO2 Arterial Blood Partial 215 mmHG 167 mmHG Pressure O2 (61-120) (61-120) Arterial Blood Oxygen Content 11.6 Vol % 11.7 Vol % (12.0-20.0) (12.0-20.0) Arterial Blood 1.7 % (0-4) 1.7 % (0-4) Carboxyhemoglobin Arterial Blood Methemoglobin 0.4 % (0-2) 0.3 % (0-2) Blood Gas Hemoglobin 8.0 G/DL 8.3 G/DL (12.0-16.0) (12.0-16.0) Oxygen Delivery Device VENTILATOR VENTILATOR Blood Gas Ventilator Setting VAC20/500/8 VAC/20/500/PEEP8 Blood Gas Inspired Oxygen 70 % 70 % Urine Color YELLOW (YELLW/STRAW) Urine Turbidity HAZY (CLEAR) Urine pH 7.5 (5.0-8.5) Urine Specific [place] 1.010 (1.002-1.035) Urine Protein 300 mg/dL (NEG-TRACE) Urine Glucose (UA) NEG mg/dL (NEG) Urine Ketones NEG mg/dL (NEG) Urine Occult Blood SMALL (NEG) Urine Nitrite NEG (NEG) Urine Bilirubin NEG (NEG) Urine Urobilinogen LESS THAN 2.0 MG/DL (LESS THAN 2.0) Urine Leukocyte Esterase NEG (NEG) Urine RBC 5 /hpf (0-3) Urine WBC 16 /hpf (0-5) Urine Amorphous Sediment FEW Urine Bacteria OCC /hpf (NONE) Urine Mucus FEW /lpf (OCC) Microscopic Urinalysis Comment CATH-CULTURE IND Test 01/27/17 01/27/17 01/27/17 01/27/17 01:30 02:22 04:57 05:15 Nasal Screen MRSA (PCR) MRSA NOT DETECTED (NOT DETECT) Lactic Acid Level 1.8 mmol/L (0.4-2.0) Troponin I 0.22 NG/ML (0.02-0.05) Blood Gas Puncture Site ART LINE Blood Gas Patient Temperature 98.6 Blood Gas HCO3 24 mmol/L (22-26) Blood Gas Base Excess -1.0 mmol/L (-2-2) Blood Gas Oxygen Saturation 97 % (90-100) Arterial Blood pH 7.32 (7.380-7.420) Arterial Blood Partial 49 mmHg (38-42) Pressure CO2 Arterial Blood Partial 229 mmHg Pressure O2 (61-120) Arterial Blood Oxygen Content 12.7 Vol % (12.0-20.0) Arterial Blood 1.5 % (0-4) Carboxyhemoglobin Arterial Blood Methemoglobin 0.9 % (0-2) Blood Gas Hemoglobin 8.8 G/DL (12.0-16.0) Oxygen Delivery Device VENT Blood Gas Ventilator Setting SEE COMMENTS Blood Gas Inspired Oxygen 100 % Result Diagram: 01/26/172 01/26/172 Microbiology Microbiology Date/Time Procedure Status Source Growth 01/26/17 22:35 Aerobic Blood Culture - Preliminary Resulted Blood Peripheral NO GROWTH IN 1 DAY 01/26/17 22:35 Anaerobic Blood Culture - Preliminary Resulted Blood Peripheral NO GROWTH IN 1 DAY 01/26/17 22:42 Aerobic Blood Culture - Preliminary Resulted Blood Peripheral NO GROWTH IN 1 DAY 01/26/17 22:42 Anaerobic Blood Culture - Preliminary Resulted Blood Peripheral NO GROWTH IN 1 DAY 01/27/17 00:04 Urine Culture Received Urine Catheterized Urine Pending Imaging Last Impressions Chest X-Ray 01/27/17 0000 Signed Impressions: Service Date/Time: January 04:20 - CONCLUSION: No significant change with persistent near-complete opacification of the right hemithorax. Larry Curiel MD Head CT 01/26/176 Signed Impressions: Service Date/Time: Thursday, January 26, 2017 23:36 - CONCLUSION: 1. Moderate amount of fluid in the sinuses involving the maxillary, ethmoid, and sphenoid sinuses. High density fluid is seen at the dependent portion of the left maxillary sinus. This may represent hemorrhagic material or proteinaceous material. Polyp or retention cyst is again seen in the left maxillary sinus. The fluid is new compared to the prior study of 01/07/2017. 2. No acute intracranial findings. Larry Curiel MD Procedures * 01/26/17 -intubation . Patient/Family Conference Present at Family Conference: Son Larry Tillman and family friend Fior Giordano. Family Conference Time (mins): 36 Family Conference Location: Bedside, Telephone Issues Discussed: * Palliative care role, purpose, approach * Additional medical, psychosocial, and spiritual history * Patients general health, functional status, and cognitive changes in the months leading up to the current hospitalization * Family understanding of the current medical problems -status post cardiac arrest, likely anoxic brain injury. * Family understanding of prognosis -very poor given acute events, multiple comorbidities and profound physical deconditioning. * Patients goals of care as best understood from advance directives and/or conversations and/or values * Current medical treatment options and benefits/burdens of those options * Questions answered to the best of my ability * Palliative care contact information provided * Risks, benefits and limitations of CPR given patient's current clinical condition . Assessment and Plan Disease Oriented Problem List: (1) Cardiac arrest (2) Respiratory failure (3) Atrial fibrillation Symptom Scale: (1) Shortness of breath 0-10 Scale: Unable to quantify Comment: Remains intubated on mechanical ventilation. (2) Debility 0-10 Scale: Unable to quantify Comment: Progressive. Worsen since October 2016. Pertinent Non-Medical Issues Psychosocial: . Has one child. Originally from the [facility]. Spiritual: Holiness adeline. Legal: No living will completed. Designation of healthcare surrogate in file. Ethical issues impacting care: No ethical issues have been identified. . Important Contacts HCS/son Larry Tillman . Family friend Fior Giordano . . Prognosis Mrs. Tillman is a 71-year-old female with multiple chronic issues and multiple hospitalizations within the past 18 months. Patient with progressive decline, [facility]. Currently status post cardiac arrest, remains on life support. Likely anoxic brain injury. Prognosis is very poor for survival given acute events, multiple chronic comorbidities, multiple recent acute hospitalizations, advanced age and profound physical deconditioning. . Code Status: Full Code Plan * CODE STATUS: Full code. Discussed with son risk, benefits and limitations of CPR given patient's current clinical condition. Son electing for patient to remain full code at this time. * HEALTHCARE DECISION-MAKING: Patient unable to participating medical decision- making secondary to clinical condition, unresponsive. Designation of healthcare surrogate in file, son Larry Tillman listed as HCS. * GOALS OF CARE: Son electing to continue with aggressive medical management to include FULL code at this time. Allow the weekend to reevaluate patient's clinical condition and prognosis. * Met patient's son Larry and family friend Fior Calix at bedside. Medical update provided. Son tells me that he has had the opportunity to talk with Dr. Cornelius. Risks, benefits and limitations of CPR were discussed with son. Son was made aware that patient's clinical condition is critical and that she is not likely survive this hospitalization. Son verbalized understanding. Patient's former primary care physician at bedside providing support and guidance to patient's son. * SYMPTOMS: = Shortness of breath, secondary to acute respiratory failure, COPD. Remains intubated on mechanical ventilation. FiO2 100%, titrated to 80% during my visit. = Debility, progressive and worsened during the past 3 months. * Case has been discussed with Dr. Cornelius and bedside RN Jerardo. * Palliative care contact information has been provided to patient's family. * Palliative care will continue to follow-up for further clarifications of goals of care as patient's clinical course continues to evolve. . Time Spent Total Floor Time (mins): 75 (Total time to include review and summarization of available medical records to include multiple prior hospitalizations, physical exam, telephone and bedside conversation with patient's son, case discussion with Dr. Cornelius and bedside RN.) >50% Counseling/Coord of Care: Yes Thank you for the opportunity to participate in the care of Ms. Tillman. Attestation To help prompt me to consider important information that might be impacting today's encounter and assessment, information from prior notes written by myself or my colleagues may have been "brought forward" into today's note. My signature on this note, however, is an attestation that I personally performed the exam, history, and/or decision-making noted today, and, unless otherwise indicated, the interactions with patient, family, and staff as well as the review of records all occurred today. I also attest that the listed assessment and stated plan reflect my best clinical judgment today based on the combination of historical information, prior notes, and today's exam/ interactions. When time spent is documented, it refers only to time spent today by the signer, or if indicated, combined time spent today by collaborating physician/nurse practitioner. Yolis Guerrier Jan 27, 2017 12:39
--- NOTE | 2017-01-27 13:01 | HHI.CCPN ---
Subjective Remarks/Hospital Course 71 year-old woman, multiple medical problems, presents to the emergency department following cardiac arrest. Patient was reportedly last seen around 4 hours or so before she was found unresponsive. She had no pulse. CPR was started. EMS found the patient asystolic. They continued ACLS, intubation, 3 rounds of epi, some bicarbonate. The return of spontaneous circulation and patient presented to the ED hypotensive but with pulses. No other history is available Subjective 01/27: Discussed with son and Dr. Preciado. Patient showing signs of anoxic brain injury. She is overbreathing the ventilator. Trending troponins. Objective Vital Signs Date Time Temp Pulse Resp B/P Pulse Ox O2 Delivery O2 Flow Rate FiO2 01/27/17 10:00 61 01/27/17 08:00 101.3 26 145/63 86 01/27/17 07:48 100 01/26/17 22:10 Ventilator 01/26/17 21:45 15.00 Result Diagram: 01/26/17 2242 01/26/17 2242 Other Results Microbiology Date/Time Procedure Status Source Growth 01/27/17 00:04 Urine Culture Received Urine Catheterized Urine Pending 01/26/17 22:42 Aerobic Blood Culture - Preliminary Resulted Blood Peripheral NO GROWTH IN 1 DAY 01/26/17 22:42 Anaerobic Blood Culture - Preliminary Resulted Blood Peripheral NO GROWTH IN 1 DAY Imaging Last 72 hours Impressions Chest X-Ray 01/27/17 0000 Signed Impressions: Service Date/Time: January 04:20 - CONCLUSION: No significant change with persistent near-complete opacification of the right hemithorax. Larry Curiel MD Head CT 01/26/172235 Signed Impressions: Service Date/Time: Thursday, January 26, 2017 23:36 - CONCLUSION: 1. Moderate amount of fluid in the sinuses involving the maxillary, ethmoid, and sphenoid sinuses. High density fluid is seen at the dependent portion of the left maxillary sinus. This may represent hemorrhagic material or proteinaceous material. Polyp or retention cyst is again seen in the left maxillary sinus. The fluid is new compared to the prior study of 01/07/2017. 2. No acute intracranial findings. Larry Curiel MD Chest X-Ray 01/26/172235 Signed Impressions: Service Date/Time: Thursday, January 26, 2017 22:35 - CONCLUSION: 1. Near-complete opacification of the right hemithorax again seen. 2. Endotracheal tube and nasogastric tube now in place. Larry Curiel MD Objective Remarks GENERAL: 71-year-old female, critically ill currently orotracheally intubated. SKIN: Warm and dry. Well perfused HEAD: Normocephalic. Atraumatic. EYES: No scleral icterus. No injection or drainage. NECK: Supple, trachea midline. No JVD or lymphadenopathy. CARDIOVASCULAR: Distant. IRR.. S1, S2. No S4. Without murmurs, gallops, or rubs. RESPIRATORY: No breath sounds throughout right lung sanford. Left breath sounds with fine crackles appreciated GASTROINTESTINAL: Abdomen soft, non-tender, obese. No bowel sounds appreciated MUSCULOSKELETAL: 1+ bilateral lower extremity edema. NEURO: Quite tremulous. Overbreathing the ventilator. Pupils with minimal reaction bilaterally. Not withdrawing to pain with my examination. No clonus. Vascular Central Line Catheter: Yes Assessment to: Continue Date of Insertion: Jan 27, 2017 Line: Central Venous Catheter Side: Right Location: Femoral A/P Assessment and Plan Neuro/Psych: Acute encephalopathy likely anoxic Adjustment disorder with missed anxiety and depressed mood Major depressive disorder Gait and balance disorder Chronic headaches Insomnia Chronic benzodiazepine use Will started Versed drip for sedation while intubated Goal of RA SS -2 CT revealed ethmoid, maxillary and sphenoid sinus fluid levels with possible blood within left maxillary sinus. Neurology has been consulted for prognosis management EEG has been ordered Holding melatonin 3 mg a night for insomnia Holding Seroquel 100 mg by mouth 3 times a day. Duloxetine 60 mill grams by mouth daily and Xanax 0.5 mg every 4 hours when necessary anxiety. Resume when clinically indicated Daily [place] 5/325 one tablet every 4 hours. Pain currently being held CV: Cardiac pulmonary arrest likely respiratory related Atrial fibrillation Hypertension Congestive heart failure History of carotid stent History of permanent IVC filter 2012 Mild MR Consult cardiology - Dr. Borrego. No plans for intervention at the present time by neurological status Unknown duration postcardiac arrest - not the candidate for hypothermia protocol per overnight sack maker Continue aspirin 81 mg by mouth daily Cycle troponins. Last 0.[address] on heparin drip and hold Xarelto in an Intensive Care Unit patient for more accurate measurement of proper anticoagulation Home medications metoprolol 25 mg every 8 hours resume. Enalapril 20 mg by mouth daily be held in light of possible acute kidney injury. Holding Lasix 20 mg by mouth daily potassium supplementation 2-D echo 11/01 revealed EF 40-45%. No regional wall motion abnormality. Mild MR. 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 Preciado who has been consulted Vocal cord polypectomy by history PC/AC ventilation 20/inspiratory pressure around 20. Inspiratory time 1.0. PEEP of 5. FiO2 80% Ventilator bundle Duo nebs every 6 hours and albuterol every 2 hours. Breakthrough Patient has known scarring the right mainstem bronchus. Follow-up with Dr. Una Mckenna who has been consulted Follow-up chest x-ray in a.m. GI: Gastroesophageal reflux disease Chronic pancreatitis Hypoalbuminemia Consulted dietary for tube feed recommendations Pepcid for GI prophylaxis. On Zantac 150 mg by mouth twice a day at senior living Gwen-Colace for bowel regimen : Barnett catheter has been placed for accurate I's and O's in a critically ill patient Endo: Hypothyroidism Check TSH. Continue Levoxyl 50 mcg daily. Adjust as clinically indicated Sliding-scale insulin/low regimen with Accu-Cheks every 6 hours to maintain euglycemia Renal: Creatinine currently within normal limits Accurate I's and O's Monitor urine output Heme: Chronic Xarelto use Normocytic anemia Monitor CBC daily. Follow trends. No indications for transfusion of blood process at this time. Holding Xarelto start heparin drip for anticoagulation ID: Urinary tract infection Likely aspiration pneumonia Aztreonam/Flagyl for aspiration. Follow blood cultures 2, sputum and urine. MSK: Osteoarthritis PT when appropriate FEN: Hyponatremia Replace electrolytes as clinically indicated Currently on NS @ 84 cc an hour. Access - Utilize right femoral CVL/arterial line placed in ED 01/27. Prophylaxis - GI -Pepcid - DVT - SCD/heparin drip 30 minutes additional critical care time. Konrad Cornelius MD Jan 27, 2017 13:01
[2017-01-27] MEDS: MIDAZOLAM 100 MG/ML INJ 100 ML IV SCH ×2 (13:14→19:39)
[2017-01-27] MEDS ORDERED: ROCURONIUM INJ 50 MG/5 ML VIAL IV ONE (14:00)
[2017-01-27] MEDS ORDERED: GLUCAGON 1 MG/ML VIAL OTHER PRN (14:30)
[2017-01-27] MEDS ORDERED: DEXTROSE 50% IN WATER 50 ML VIAL(D50) IV PRN (14:30)
[2017-01-27] MEDS: metroNIDAZOLE 500 MG INJ 100 ML IV SCH ×2 (14:57→18:10)
[2017-01-27] MEDS: AZTREONAM INJ 2,000 MG in SODIUM CHLORIDE 0.9% INJ 100 ML IV SCH ×2 (16:34→21:56)
[2017-01-27] MEDS: INSULIN NovoLIN REGULAR SUPPLEMENTAL SCALE SQ SCH (18:00)
--- NOTE | 2017-01-27 19:19 | MB ---
cc: Wandy BARRERA M.D. DATE OF CONSULTATION 01/27/17 REASON FOR CONSULTATION Respiratory failure status post cardiac arrest. HISTORY OF PRESENT ILLNESS This is a 71-year-old female with a longstanding history of severe COPD with oxygen dependency who was at the [facility] and apparently was short of breath and found unresponsive. She was pulseless and had CPR and EMS arrived and was she was then noted to be asystolic. ACLS protocol was instituted. The patient was intubated and given bicarbonate and subsequently started on IV fluids and transferred to the emergency room and placed on ventilator support. The patient has remained unresponsive but has some twitchy movements of her face and eyes. She is not able to respond and seems encephalopathic. 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 The patient also has been placed on IV antibiotic therapy for possible aspiration. She is on Pepcid and nebulized albuterol/Atrovent solution. PAST MEDICAL HISTORY 1. History for carcinoma of the lung, status post radiation and chemotherapy for a non-small cell carcinoma more than nine years ago. 2. COPD with emphysema, 3. History of hypertension 4. Cardiac arrhythmias 5. History of congestive heart failure and coronary artery disease. 6. History of gastroesophageal reflux disease 7. History of multiple episodes of pneumonia and respiratory failure. 8. Depression, anxiety 9. Hypothyroidism 10. Diabetes mellitus. HABITS The patient smoked remotely for over 20 years but not recently. No alcohol use. [facility] at the [facility]. FAMILY HISTORY Noncontributory. MEDICATIONS 1. DuoNeb solution with A nebulizer q.i.d., 2. Seroquel 100 mg t.i.d., 3. Xanax 0.5 mg q. 4 hour 4. Loperamide 4 mg p.r.n., 5. Duloxetine 60 mg daily. 6. Enalapril 20 mg a day 7. Xarelto 20 mg daily 8. Metoprolol 25 mg every 8 hours, 9. Synthroid 50 mcg a day, 10. Zantac 150 mg b.i.d. ALLERGIES PENICILLIN ADHESIVE TAPE PRILOSEC SULFA VANCOMYCIN EFFEXOR OMEPRAZOLE ZITHROMAX NONSTEROIDALS MARCAINE PENTAX MINOCIN FAMILY HISTORY Noncontributory REVIEW OF SYSTEMS The patient is on ventilator support. PHYSICAL EXAMINATION GENERAL: This is a moderately obese elderly lady who is unresponsive. Her eyes are open and she has some secretions drooling from the side of her mouth. VITAL SIGNS: Blood pressure is 128/60, pulse is 66, respirations 22, temperature 98.5. HEENT: Head normocephalic. Pupils are irregular reactive. Throat has secretions. ET tube in place. Nasal mucosa is edematous. NECK: Supple with mild venous distension. Trachea midline. CHEST: Decreased breath sounds over right lung sanford and wheezes are scattered over the left chest with occasional crackles. CARDIAC: Heart sounds are regular S1-S2. No murmur. No S3. ABDOMEN: Soft and nontender. No organomegaly. Bowel sounds are active. EXTREMITIES: Edema 1+ with decreased pulses. NEUROLOGIC: Reflexes are not elicited. The patient does withdraw to stimuli. Babinski negative. Cranial nerves not tested. SKIN: Dry and cool. IMPRESSION 1. Status post cardiopulmonary arrest 2. Acute respiratory failure with hypoxemia and hypercapnia. 3. History of carcinoma of the lung status post radiation and chemotherapy 4. Atelectasis right lung with radiation fibrosis 5. History of depression and anxiety 6. Atrial fibrillation and history of pulmonary emboli. PLAN The patient will be maintained on ventilator support. We will wean the FIO2 down to 40%, nebulized DuoNeb solution added q.i.d. Solu-Medrol 40 mg IV b.i.d. was ordered. Antibiotic coverage will be continued including Flagyl 500 mg q. 8 and 2 grams IV q.8 h. Cultures from the trache and blood and urine will be obtained. Follow up chest x-ray in the a.m. EEG and CT head. Neuro evaluation. If she becomes more responsive, attempts will be made for C-PAP trials. Thank you, Dr. Cornelius, for this consultation. MD REJI Ruth/ /6:45 PM /7:05 PM
--- NOTE | 2017-01-27 19:31 | MG ---
cc: RADHA LANDRY M.D. Lab No: [id number] Date: 01/27/17 Age: 71 Sex: F Race: HISTORY Intubated, mouth tremors, found unresponsive, pulseless, cardiac cath, a-fib. MEDICATIONS 1. Synthroid. 2. Pepcid. DESCRIPTION OF RECORD There are a lot of mouth tremors seen, these just correlate with muscle artifact. Appears to be a burst suppression type pattern with about 400-600 milliseconds of theta bursts and then depression or suppression for about almost two seconds and this is synchronous and symmetric. I do not see any epileptiform or seizure activity. I was unable to stop the tremors and again it is just burst suppression. Some small sharps are seen in the bifrontal central head region with the bursts but no runs or seizure are noted. Hyperventilation not performed. Photic stimulation is performed without significant posterior driving. IMPRESSION A burst suppression pattern consistent with severe diffuse cerebral disturbance, how much is medication effect is unclear. No prolonged seizure activity is seen. The bursts do have a slight sharp contour with small sharp waves to them, but I did not overall think that it was certainly not in the patient certainly not in status epilepticus. Clinical correlation is needed. MD KARLOS Santana/FIONA /6:44 PM /7:12 PM
[2017-01-27] MEDS: CHLORHEXIDINE 0.12% (ORAL KIT) 15 ML CUP MT SCH (19:40)
[2017-01-27] MEDS: methylPREDNISolone SOD SUCC 40 MG/1 ML VIAL IV SCH (21:55)
--- NOTE | 2017-01-27 23:30 | MB ---
cc: KRISTINE FIGUEROA MD DATE OF CONSULTATION 01/27/17 REASON FOR CONSULTATION Anoxic brain injury status post cardiac arrest. HISTORY OF PRESENT ILLNESS The patient is intubated and sedated. Past medical history is obtained from medical records and RN. Mrs. Tillman is a 71-year-old female presented to [facility] Room following a cardiac arrest that [facility]. CPR started, intubated, however, she was unresponsive. The patient was reportedly last seen around 4 hours or so before she was found unresponsive. She had no pulse. EMS found the patient asystolic. REVIEW OF SYSTEMS Unable to obtain. ALLERGIES REVIEW OF MEDICAL RECORDS ADHESIVE, CALCIUM, PEANUTS, NONSTEROIDAL ANTI-INFLAMMATORY AGENTS, PENICILLIN, SULFA, PROMETHAZINE, PRILOSEC, PREDNISONE, ZYRTEC, VANCOMYCIN, ZYPREXA, FLUTICASONE, OMEPRAZOLE, ZITHROMAX. PAST MEDICAL HISTORY As per medical records, atrial fibrillation, reportedly on Xarelto. COPD, history of lung cancer, hypertension, congestive heart failure, coronary artery disease, GI disorders, GERD, headaches, anxiety, hypothyroidism and diabetes. PAST SURGICAL HISTORY Unable to obtain. MEDICATIONS 1. Milk of Magnesia. 2. Xanax. 3. Seroquel. 4. Xarelto. 5. Loperamide. 6. Enema. 7. Dulcolax. 8. Tylenol. 9. Duloxetine. 10. Melatonin. 11. Anti acid. 12. Aspirin 81. 13. Enalapril. 14. Metoprolol. 15. Levothyroxine. 16. Zantac. 17. Potassium. FAMILY HISTORY Unable to obtain. SOCIAL HISTORY Per chart review, there is no history of illicit drug, alcohol or tobacco abuse. PHYSICAL EXAMINATION GENERAL: Overweight, intubated and sedated. HEENT: Atraumatic, normocephalic. NECK: Supple. No carotid bruits. Trachea in the midline. CARDIOVASCULAR: Regular rate and rhythm. RESPIRATORY: Clear breath sounds. MUSCULOSKELETAL: No cyanosis or edema. NEUROLOGIC: Sedated and ventilated and mechanically ___. Pupils left 3 mm, right 2 mm, both reacting to light. No gaze deviation. Absent corneal reflex bilaterally. Absent gag and cough reflex. Intermittent myoclonic activity around the mouth region is noted. LABORATORY DATA White blood cells 9.6, hemoglobin 8.3, MCV 92.6, platelet 208, sodium 134, potassium 4.2, anion gap 10, creatinine 1.44, BUN 11, lactic acid 5.5, calcium 7.8, magnesium 2.1. AST within normal. DIAGNOSTICS IMAGING STUDIES Head CT scan without contrast revealed no acute intracranial abnormality. DIAGNOSTIC IMPRESSION 1. Hypoxic/anoxic brain injury status post cardiopulmonary arrest. 2. Acute respiratory failure. 3. History of atrial fibrillation with pulmonary emboli. 4. History of lung cancer. 5. Diabetes mellitus. ASSESSMENT/PLAN 1. In light of the absent brain stem reflexes and the EEG that revealed that there is suppression pattern consistent with severe diffuse cerebral disturbance. The neurologic status of the patient carries a poor prognosis for meaningful recovery. 2. Will follow up for further neurologic assessment. Thank you for the opportunity to participate in the care of your patient. MD HOLDEN Proctor/MENDEZ /10:38 PM /11:01 PM [email or web address]
[2017-01-28] VITALS (50 sets, daily range): BP systolic 109–142; BP diastolic 50–61; PULSE 41–52; RESP 1–23; TEMP 96.3–100.3; O2SAT 97–100
[2017-01-28] MEDS: CHLORHEXIDINE GLUCONATE 2 % 1 PACK (2 CLOTHS) TOP SCH (01:54)
[2017-01-28] MEDS: metroNIDAZOLE 500 MG INJ 100 ML IV SCH ×5 (01:54→23:36)
[2017-01-28] MEDS: SODIUM CHLOR 0.9% 1000 ML INJ 1,000 ML IV SCH ×3 (01:55→23:36)
[2017-01-28] MEDS: RESP: ALBUTEROL 2.5 MG/IPRATROPIUM 0.5 MG NEB (SCH) INH ×4 (03:27→20:42)
[2017-01-28] MEDS: LEVOTHYROXINE SODIUM 50 MCG TAB PO SCH (05:15)
[2017-01-28] MEDS: METOPROLOL TARTRATE 25 MG TAB PO SCH ×3 (05:15→22:30)
[2017-01-28] MEDS: INSULIN NovoLIN REGULAR SUPPLEMENTAL SCALE SQ SCH ×5 (05:16→23:31)
[2017-01-28] MEDS: AZTREONAM INJ 2,000 MG in SODIUM CHLORIDE 0.9% INJ 100 ML IV SCH ×3 (05:16→22:30)
[2017-01-28 05:22] LABS: BASOPHIL % 0.1 % (0.0-2.0); HEMATOCRIT 23.7 % (35.0-46.0); LYMPH % 6.3 % (9.0-44.0); LYMPHOCYTE # 0.5 TH/MM3 (1.0-4.8); MEAN CELL VOLUME 89.9 FL (80.0-100.0); MEAN CORPUSCULAR HGB CONC 32.2 % (32.0-36.0); MONO % 4.5 % (0.0-8.0); NEUT % 89.1 % (16.0-70.0); PLATELET COUNT 112 TH/MM3 (150-450); RED BLOOD COUNT 2.64 MIL/MM3 (4.00-5.30); WHITE BLOOD COUNT 7.8 TH/MM3 (4.0-11.0)
[2017-01-28 05:26] LABS: HEMO FLAGS AUTO DIFF
[2017-01-28 06:34] LABS: BLOOD UREA NITROGEN 30 MG/DL (7-18); GLOMERULAR FILTRATION RATE 19 ML/MIN (>89)
[2017-01-28 06:35] LABS: ALKALINE PHOSPHATASE 62 U/L (45-117); ALT (GPT) 56 U/L (10-53); ANION GAP 14 MEQ/L (5-15); AST (GOT) 123 U/L (15-37); CHLORIDE 99 MEQ/L (98-107); MAGNESIUM 2.1 MG/DL (1.5-2.5); POTASSIUM 4.1 MEQ/L (3.5-5.1); SODIUM (NA) 134 MEQ/L (136-145); TOTAL BILIRUBIN ADULT 0.8 MG/DL (0.2-1.0)
[2017-01-28] MEDS: CHLORHEXIDINE 0.12% (ORAL KIT) 15 ML CUP MT SCH ×2 (08:00→21:05)
[2017-01-28 08:22] LABS: ACANTHOCYTES 1+ (NORMAL); BANDS 14 % (0-6); NEUTROPHIL # MANUAL DIFF 7.1 TH/MM3 (1.8-7.7); OVALOCYTES 2+ (NORMAL); PLATELET ESTIMATE SMEAR LOW (NORMAL); PLATELET MORPHOLOGY ENLARGED (NORMAL); POLYS (SEG NEUTROPHILS) 77 % (16-70); SCAN/DIFF FINAL DIFF MANUAL; WBC DIFF SAMPLE 100
[2017-01-28] MEDS: FAMOTIDINE 20 MG TAB PO SCH ×2 (09:57→20:22)
[2017-01-28] MEDS: DOCUSATE SODIUM 50 MG/SENNA 8.6 MG TAB PO SCH ×2 (09:57→20:22)
[2017-01-28] MEDS: SODIUM CHLORIDE 0.9% FLUSH 10 ML FLUSH SCH ×2 (09:58→20:23)
[2017-01-28] MEDS: ASPIRIN EC 81 MG TABEC PO SCH (09:58)
[2017-01-28] MEDS: methylPREDNISolone SOD SUCC 40 MG/1 ML VIAL IV SCH ×2 (09:58→20:22)
[2017-01-28] MEDS: LIPASE/PROTEASE/AMYLASE (24,000/76,000/120,000) CAP PO SCH ×3 (09:58→17:55)
--- NOTE | 2017-01-28 11:00 | HHI.HCPN ---
Reason for visit a. To assist with evaluation and management of symptoms including: Shortness of breath and debility. b. To assist medical decision maker(s) with: better understanding of current medical conditions; weighing benefits/burdens of medical treatment options; making medical treatment decisions. . Subjective/Interval History Mrs. Tillman is a 71-year-old female, known to palliative care services. This is patient's 7th of acute hospitalization this year, multiple prior hospitalizations and frequent ED visits during the past 12 months. Patient with a past medical history of COPD, A. fib on anticoagulation, hypertension, CHF, among other multiple chronic comorbidities. Patient presented from [facility] via EMS secondary to unwitnessed cardiac arrest. As per medical records, patient was found unresponsive, she had no pulse. CPR was started. EMS found patient asystolic, ACLS started requiring 3 rounds of epinephrine and bicarbonate. ROSC obtained. Patient presented to ED hypotensive but with a pulse. CT of the head negative for acute process. Chest x-ray revealing near complete opacification of the right hemithorax. Patient was admitted for further management. Palliative care has been consulted for further clarifications of goals of care given poor prognosis for survival. Pulmonology, Dr. Preciado consulted on 01/27/17 secondary to respiratory failure status post cardiac arrest. Continuation of medical management recommended, patient was continue on antibiotic. Neurology, Dr. Hamilton consulted on 01/27/17 for evaluation of anoxic brain injury status post cardiac arrest. EEG revealed suppression pattern consistent with severe diffuse cerebral disturbance. Absent brainstem's reflexes. As per neurology "poor prognosis for recovery". Clinical course further complicated by worsening kidney failure, BUN/creatinine 30/2.53. Minimal urinary output. Laboratory workup today indicating WBC 7.8, Hgb 7.7 from 8.3, platelet count 112. Sodium 134, potassium 4.1. Elevated liver enzymes, AST 123, ALT 56, alkaline phosphatase 62. Albumin 2.4. Patient seen in ICU, she remains orally intubated on mechanical ventilation. Unresponsive to verbal or tactile stimuli. Eyes open, no corneal work that reflex noted. Bradycardic with heart rate in the 40s. Stable hemodynamically. Currently on 40% FiO2, oxygen saturation in the high 90s. Telephone conversation with patient's son Larry Tillman. Medical update provided. Son to continue goals of care discussion at bedside within the next hour. 12:25. Family meeting, in attendance Dr. Cornelius, Dr. Preciado, palliative care, patient's son Larry and family friend Fior Calix. Medical update provided. Patient currently on multisystem organ failure. Worsening kidney function at this time. Discussed poor prognosis for meaningful neurological recovery. Discussed risks, benefits and limitations of CPR/cardiac code given patient's current clinical status and poor prognosis. Son electing to continue with aggressive medical management for an additional 24-48 hours. All questions were answered in great detail. Code status to remains full code at this time. Case has been discussed with Dr. Cornelius and bedside RN Ghazala. . Family/friend interactions See interval note. . Advance Directives Living Will: Never completed Health Care Surrogate: Copy in medical record Advance Directive Specifics Date completed: 03/16/2016. . Health Care Surrogate(s): HCS/son Larry Tillman. . Documented care wishes: No living will completed. . Significant change in goals: Full code. Son electing to continue with aggressive management for an additional 24-48 hours. Son to reevaluate patient's clinical condition over the weekend. . Objective Vital Signs Date Time Temp Pulse Resp B/P Pulse Ox O2 Delivery O2 Flow Rate FiO2 01/28/17 08:07 99 40 01/28/17 06:00 44 01/28/17 04:00 50 01/28/17 04:00 45 01/28/17 04:00 99.5 46 20 117/54 100 129/54 01/28/17 03:27 100 50 01/28/17 02:00 45 01/28/17 01:10 100 50 01/28/17 00:00 46 01/28/17 00:00 50 01/28/17 00:00 100.3 46 5 114/56 100 129/53 01/27/17 22:00 51 01/27/17 20:12 100 50 01/27/17 20:00 100.4 57 20 117/58 100 130/50 01/27/17 20:00 50 01/27/17 20:00 57 01/27/17 18:00 60 01/27/17 16:00 102.0 51 1 121/58 100 119/43 01/27/17 16:00 51 01/27/17 15:10 100 50 01/27/17 14:00 55 01/27/17 12:00 56 01/27/17 12:00 102.7 56 22 127/57 87 144/55 Intake & Output 01/28/17 01/28/17 07:00 19:00 Intake Total 1205 ml Output Total 55 ml Balance 1150 ml IV Total 1205 ml Output Urine Total 55 ml # Bowel Movements 1 Physical Exam CONSTITUTIONAL/GENERAL: This is an elderly frail female orally intubated on mechanical ventilation. Unresponsive. TUBES/LINES/DRAINS: ETT, OG, right femoral central line, Barnett catheter, PIV's. SKIN: No jaundice, rashes, or lesions. Ecchymoses on upper extremities. No wounds seen anteriorly. Skin temperature appropriate. Not diaphoretic. HEAD: Atraumatic. Normocephalic. EYES: No corneal reflex noted. No scleral icterus. No injection or drainage. ENT: Unable to evaluate hearing secondary to clinical condition. Nose without bleeding or purulent drainage. Moist oral mucosa, frothy oral secretions noted. NECK: Trachea midline. Supple. CARDIOVASCULAR: Bradycardic. Irregular rate and rhythm without murmurs, gallops , or rubs. Mottling of bilateral lower and upper extremities. RESPIRATORY/CHEST: Symmetric, unlabored. Coarse breath sounds bilaterally. Orally intubated on mechanical ventilation. GASTROINTESTINAL: Abdomen soft, round, obese. No guarding. Bowel sounds present. GENITOURINARY: Without palpable bladder distension. Barnett catheter in place. Scant amount of urine in Barnett bag. MUSCULOSKELETAL: Extremities with osteoarthritic changes to all 4 extremities. NEUROLOGICAL: Unresponsive to verbal or tactile stimuli. not following any commands. PSYCHIATRIC: Unable to assess secondary to clinical condition. . Diagnostic Tests Laboratory Laboratory Tests Test 01/26/17 01/26/17 01/27/17 01/27/17 22:42 23:00 00:04 00:30 Prothrombin Time 16.1 SEC (9.8-11.6) Prothromb Time International 1.4 RATIO Ratio Activated Partial 29.9 SEC Thromboplast Time (24.3-30.1) Sodium Level 134 MEQ/L (136-145) Potassium Level 4.2 MEQ/L (3.5-5.1) Chloride Level 96 MEQ/L (98-107) Carbon Dioxide Level 28.1 MEQ/L (21.0-32.0) Anion Gap 10 MEQ/L (5-15) Blood Urea Nitrogen 11 MG/DL (7-18) Creatinine 1.44 MG/DL (0.50-1.00) Estimat Glomerular Filtration 36 ML/MIN (>89) Rate Random Glucose 121 MG/DL (74-106) Calcium Level 7.8 MG/DL (8.5-10.1) Magnesium Level 2.1 MG/DL (1.5-2.5) Total Bilirubin 0.7 MG/DL (0.2-1.0) Aspartate Amino Transf 34 U/L (15-37) (AST/SGOT) Alanine Aminotransferase 15 U/L (10-53) (ALT/SGPT) Alkaline Phosphatase 72 U/L (45-117) Troponin I 0.05 NG/ML (0.02-0.05) Total Protein 5.5 GM/DL (6.4-8.2) Albumin 2.6 GM/DL (3.4-5.0) Lipase 109 U/L (73-393) White Blood Count 9.6 TH/MM3 (4.0-11.0) Red Blood Count 2.78 MIL/MM3 (4.00-5.30) Hemoglobin 8.3 GM/DL (11.6-15.3) Hematocrit 25.7 % (35.0-46.0) Mean Corpuscular Volume 92.6 FL (80.0-100.0) Mean Corpuscular Hemoglobin 29.7 PG (27.0-34.0) Mean Corpuscular Hemoglobin 32.1 % Concent (32.0-36.0) Red Cell Distribution Width 18.9 % (11.6-17.2) Platelet Count 208 TH/MM3 (150-450) Mean Platelet Volume 8.7 FL (7.0-11.0) Neutrophils (%) (Auto) 76.1 % (16.0-70.0) Lymphocytes (%) (Auto) 14.5 % (9.0-44.0) Monocytes (%) (Auto) 5.8 % (0.0-8.0) Eosinophils (%) (Auto) 3.2 % (0.0-4.0) Basophils (%) (Auto) 0.4 % (0.0-2.0) Neutrophils # (Auto) 7.3 TH/MM3 (1.8-7.7) Lymphocytes # (Auto) 1.4 TH/MM3 (1.0-4.8) Monocytes # (Auto) 0.6 TH/MM3 (0-0.9) Eosinophils # (Auto) 0.3 TH/MM3 (0-0.4) Basophils # (Auto) 0.0 TH/MM3 (0-0.2) CBC Comment DIFF FINAL Differential Comment Lactic Acid Level 5.5 mmol/L (0.4-2.0) Blood Gas Puncture Site ART LINE ART LINE Blood Gas Patient Temperature 98.6 98.6 Blood Gas HCO3 25 mmol/L 24 mmol/L (22-26) (22-26) Blood Gas Base Excess 1.2 mmol/L 0.8 mmol/L (-2-2) (-2-2) Blood Gas Oxygen Saturation 98 % (90-100) 98 % (90-100) Arterial Blood pH 7.44 7.46 (7.380-7.420) (7.380-7.420) Arterial Blood Partial 38 mmHg (38-42) 35 mmHg (38-42) Pressure CO2 Arterial Blood Partial 215 mmHG 167 mmHG Pressure O2 (61-120) (61-120) Arterial Blood Oxygen Content 11.6 Vol % 11.7 Vol % (12.0-20.0) (12.0-20.0) Arterial Blood 1.7 % (0-4) 1.7 % (0-4) Carboxyhemoglobin Arterial Blood Methemoglobin 0.4 % (0-2) 0.3 % (0-2) Blood Gas Hemoglobin 8.0 G/DL 8.3 G/DL (12.0-16.0) (12.0-16.0) Oxygen Delivery Device VENTILATOR VENTILATOR Blood Gas Ventilator Setting VAC20/500/8 VAC/20/500/PEEP8 Blood Gas Inspired Oxygen 70 % 70 % Urine Color YELLOW (YELLW/STRAW) Urine Turbidity HAZY (CLEAR) Urine pH 7.5 (5.0-8.5) Urine Specific [place] 1.010 (1.002-1.035) Urine Protein 300 mg/dL (NEG-TRACE) Urine Glucose (UA) NEG mg/dL (NEG) Urine Ketones NEG mg/dL (NEG) Urine Occult Blood SMALL (NEG) Urine Nitrite NEG (NEG) Urine Bilirubin NEG (NEG) Urine Urobilinogen LESS THAN 2.0 MG/DL (LESS THAN 2.0) Urine Leukocyte Esterase NEG (NEG) Urine RBC 5 /hpf (0-3) Urine WBC 16 /hpf (0-5) Urine Amorphous Sediment FEW Urine Bacteria OCC /hpf (NONE) Urine Mucus FEW /lpf (OCC) Microscopic Urinalysis Comment CATH-CULTURE IND Test 01/27/17 01/27/17 01/27/17 01/27/17 01:30 02:22 04:57 05:15 Nasal Screen MRSA (PCR) MRSA NOT DETECTED (NOT DETECT) Lactic Acid Level 1.8 mmol/L (0.4-2.0) Troponin I 0.22 NG/ML (0.02-0.05) Blood Gas Puncture Site ART LINE Blood Gas Patient Temperature 98.6 Blood Gas HCO3 24 mmol/L (22-26) Blood Gas Base Excess -1.0 mmol/L (-2-2) Blood Gas Oxygen Saturation 97 % (90-100) Arterial Blood pH 7.32 (7.380-7.420) Arterial Blood Partial 49 mmHg (38-42) Pressure CO2 Arterial Blood Partial 229 mmHg Pressure O2 (61-120) Arterial Blood Oxygen Content 12.7 Vol % (12.0-20.0) Arterial Blood 1.5 % (0-4) Carboxyhemoglobin Arterial Blood Methemoglobin 0.9 % (0-2) Blood Gas Hemoglobin 8.8 G/DL (12.0-16.0) Oxygen Delivery Device VENT Blood Gas Ventilator Setting SEE COMMENTS Blood Gas Inspired Oxygen 100 % Test 01/27/17 01/28/17 12:52 05:00 Troponin I 0.31 NG/ML (0.02-0.05) White Blood Count 7.8 TH/MM3 (4.0-11.0) Red Blood Count 2.64 MIL/MM3 (4.00-5.30) Hemoglobin 7.7 GM/DL (11.6-15.3) Hematocrit 23.7 % (35.0-46.0) Mean Corpuscular Volume 89.9 FL (80.0-100.0) Mean Corpuscular Hemoglobin 29.0 PG (27.0-34.0) Mean Corpuscular Hemoglobin 32.2 % Concent (32.0-36.0) Red Cell Distribution Width 19.0 % (11.6-17.2) Platelet Count 112 TH/MM3 (150-450) Mean Platelet Volume 7.7 FL (7.0-11.0) Neutrophils (%) (Auto) 89.1 % (16.0-70.0) Lymphocytes (%) (Auto) 6.3 % (9.0-44.0) Monocytes (%) (Auto) 4.5 % (0.0-8.0) Eosinophils (%) (Auto) 0.0 % (0.0-4.0) Basophils (%) (Auto) 0.1 % (0.0-2.0) Neutrophils # (Auto) 7.0 TH/MM3 (1.8-7.7) Lymphocytes # (Auto) 0.5 TH/MM3 (1.0-4.8) Monocytes # (Auto) 0.4 TH/MM3 (0-0.9) Eosinophils # (Auto) 0.0 TH/MM3 (0-0.4) Basophils # (Auto) 0.0 TH/MM3 (0-0.2) CBC Comment AUTO DIFF Differential Total Cells 100 Counted Neutrophils % (Manual) 77 % (16-70) Band Neutrophils % 14 % (0-6) Lymphocytes % 8 % (9-44) Monocytes % 1 % (0-8) Neutrophils # (Manual) 7.1 TH/MM3 (1.8-7.7) Differential Comment FINAL DIFF MANUAL Platelet Estimate LOW (NORMAL) Platelet Morphology Comment ENLARGED (NORMAL) Ovalocytes 2+ (NORMAL) Acanthocytes 1+ (NORMAL) Sodium Level 134 MEQ/L (136-145) Potassium Level 4.1 MEQ/L (3.5-5.1) Chloride Level 99 MEQ/L (98-107) Carbon Dioxide Level 21.0 MEQ/L (21.0-32.0) Anion Gap 14 MEQ/L (5-15) Blood Urea Nitrogen 30 MG/DL (7-18) Creatinine 2.53 MG/DL (0.50-1.00) Estimat Glomerular Filtration 19 ML/MIN (>89) Rate Random Glucose 125 MG/DL (74-106) Calcium Level 7.9 MG/DL (8.5-10.1) Phosphorus Level 2.9 MG/DL (2.5-4.9) Magnesium Level 2.1 MG/DL (1.5-2.5) Total Bilirubin 0.8 MG/DL (0.2-1.0) Aspartate Amino Transf 123 U/L (15-37) (AST/SGOT) Alanine Aminotransferase 56 U/L (10-53) (ALT/SGPT) Alkaline Phosphatase 62 U/L (45-117) Total Protein 5.5 GM/DL (6.4-8.2) Albumin 2.4 GM/DL (3.4-5.0) Thyroid Stimulating Hormone 0.425 uIU/ML 3rd Gen (0.358-3.740) Result Diagram: 01/28/17 0500 01/28/17 0500 Microbiology Microbiology Date/Time Procedure Status Source Growth 01/26/17 22:35 Aerobic Blood Culture - Preliminary Resulted Blood Peripheral NO GROWTH IN 1 DAY 01/26/17 22:35 Anaerobic Blood Culture - Preliminary Resulted Blood Peripheral NO GROWTH IN 1 DAY 01/26/17 22:42 Aerobic Blood Culture - Preliminary Resulted Blood Peripheral NO GROWTH IN 1 DAY 01/26/17 22:42 Anaerobic Blood Culture - Preliminary Resulted Blood Peripheral NO GROWTH IN 1 DAY 01/27/17 00:04 Urine Culture Received Urine Catheterized Urine Pending Procedures * 01/26/17 -intubation . Assessment and Plan Disease Oriented Problem List: (1) Cardiac arrest (2) Respiratory failure (3) Atrial fibrillation Symptom Scale: (1) Shortness of breath 0-10 Scale: Unable to quantify Comment: Remains intubated on mechanical ventilation. (2) Debility 0-10 Scale: Unable to quantify Comment: Progressive. Worsen since October 2016. Pertinent Non-Medical Issues Psychosocial: . Has one child. Originally from the [facility]. Spiritual: [employer]. Legal: No living will completed. Designation of healthcare surrogate in file. Ethical issues impacting care: No ethical issues have been identified. . Important Contacts HCS/son Larry Tillman . Family friend Fior Giordano . . Prognosis Mrs. Tillman is a 71-year-old female with multiple chronic issues and multiple hospitalizations within the past 18 months. Patient with progressive decline, resident of [facility] facility since October 2016. Currently status post cardiac arrest, remains on life support. Likely anoxic brain injury. Prognosis is very poor for survival given acute events, multiple chronic comorbidities, multiple recent acute hospitalizations, advanced age and profound physical deconditioning. . Code Status: Full Code Plan * CODE STATUS: Full code. Discussed with son risk, benefits and limitations of CPR given patient's current clinical condition. Son electing for patient to remain full code at this time. * HEALTHCARE DECISION-MAKING: Patient unable to participating medical decision- making secondary to clinical condition, unresponsive. Designation of healthcare surrogate in file, son Larry Tillman listed as HCS. * GOALS OF CARE: Son electing to continue with aggressive management to include FULL code for an additional 24-48 hours, with the understanding that patient's prognosis is very poor in the setting of multisystem organ failure and anoxic brain injury. * 01/28/17 -Family meeting, in attendance Dr. Cornelius, Dr. Preciado, palliative care , patient's son Larry and family friend Fior Giordano. Medical update provided. Patient currently on multisystem organ failure. Worsening kidney function at this time. Discussed poor prognosis for meaningful neurological recovery. Discussed risks, benefits and limitations of CPR/cardiac code given patient's current clinical status and poor prognosis. Discussed continuation of aggressive management vs withdrawal of life support/allow natural . All questions were answered in great detail. * SYMPTOMS: = Shortness of breath, secondary to acute respiratory failure, COPD. Remains intubated on mechanical ventilation. FiO2 40%. = Debility, progressive and worsened during the past 3 months. * Exhibits B and C signed, placed chart. * Case has been discussed with Dr. Cornelius and bedside RN Ghazala. * Palliative care contact information has been provided to patient's family. * Palliative care will continue to follow-up for further clarifications of goals of care as patient's clinical course continues to evolve. . Time Spent Total Floor Time (mins): 48 (Total time to include review of medical records, physical exam, goals of care conversation with patient's son and case discussion with Dr. Cornelius and bedside RN. ) >50% Counseling/Coord of Care: Yes Attestation To help prompt me to consider important information that might be impacting today's encounter and assessment, information from prior notes written by myself or my colleagues may have been "brought forward" into today's note. My signature on this note, however, is an attestation that I personally performed the exam, history, and/or decision-making noted today, and, unless otherwise indicated, the interactions with patient, family, and staff as well as the review of records all occurred today. I also attest that the listed assessment and stated plan reflect my best clinical judgment today based on the combination of historical information, prior notes, and today's exam/ interactions. When time spent is documented, it refers only to time spent today by the signer, or if indicated, combined time spent today by collaborating physician/nurse practitioner. Yolis Guerrier Jan 28, 2017 11:00
--- NOTE | 2017-01-28 13:01 | HHI.PR ---
Subjective Remarks Comatose on the vent . EEG shows severe encephalopathy. FIO2 40 %. Poor urine output. Objective Vital Signs Date Time Temp Pulse Resp B/P Pulse Ox O2 Delivery O2 Flow Rate FiO2 01/28/17 12:15 96.4 43 7 120/58 100 132/50 01/28/17 12:00 40 01/28/17 12:00 43 01/28/17 12:00 96.3 43 1 124/60 99 138/52 01/28/17 11:04 100 40 01/28/17 11:00 96.3 41 20 119/58 100 132/50 01/28/17 10:45 96.3 42 20 114/57 100 129/51 01/28/17 10:30 96.3 42 20 115/56 100 130/51 01/28/17 10:15 96.4 42 16 120/58 100 134/50 01/28/17 10:00 96.4 42 20 120/58 100 134/51 01/28/17 10:00 42 01/28/17 09:45 96.6 43 20 120/55 100 138/53 01/28/17 09:30 96.6 44 20 122/60 100 139/54 01/28/17 09:15 96.8 44 20 121/58 100 139/53 01/28/17 09:00 96.8 44 20 121/59 100 139/54 01/28/17 08:45 97.0 43 7 121/59 100 138/53 01/28/17 08:30 97.0 43 10 120/59 100 138/54 01/28/17 08:15 97.2 41 7 123/57 100 141/55 01/28/17 08:07 99 40 01/28/17 08:00 97.2 42 20 123/61 99 142/55 01/28/17 08:00 42 01/28/17 08:00 40 01/28/17 07:45 97.3 42 20 120/58 100 142/55 01/28/17 07:30 97.3 43 20 123/55 100 138/55 01/28/17 07:15 97.5 43 18 119/58 100 137/55 01/28/17 07:00 97.7 43 20 130/60 100 139/54 01/28/17 06:00 44 01/28/17 04:00 50 01/28/17 04:00 45 01/28/17 04:00 99.5 46 20 117/54 100 129/54 01/28/17 03:27 100 50 01/28/17 02:00 45 01/28/17 01:10 100 50 01/28/17 00:00 46 01/28/17 00:00 50 01/28/17 00:00 100.3 46 5 114/56 100 129/53 01/27/17 22:00 51 01/27/17 20:12 100 50 01/27/17 20:00 100.4 57 20 117/58 100 130/50 01/27/17 20:00 50 01/27/17 20:00 57 01/27/17 18:00 60 01/27/17 16:00 102.0 51 1 121/58 100 119/43 01/27/17 16:00 51 01/27/17 15:10 100 50 01/27/17 14:00 55 I/O 01/27/17 01/27/17 01/27/17 01/28/17 01/28/17 01/28/17 06:59 14:59 22:59 06:59 14:59 22:59 Intake Total 176 ml 559 ml 605 ml 600 ml Output Total 45 ml 30 ml 50 ml 5 ml Balance 131 ml 529 ml 555 ml 595 ml IV Total 176 ml 559 ml 605 ml 600 ml Output Urine Total 45 ml 30 ml 50 ml 5 ml # Bowel Movements 1 0 Result Diagram: 01/28/17 0500 01/28/17 0500 Objective Remarks GENERAL: This is a moderately obese elderly lady who is unresponsive. Her eyes are open and she has some secretions in throat HEENT: Head normocephalic. Pupils are irregular reactive. Throat has secretions. ET tube in place. Nasal mucosa is edematous. NECK: Supple with mild venous distension. Trachea midline. CHEST: Decreased breath sounds over right lung [place] and wheezes are scattered over the left chest with occasional crackles. CARDIAC: Heart sounds are regular S1-S2. No murmur. No S3. ABDOMEN: Soft and nontender. No organomegaly. Bowel sounds are active. EXTREMITIES: Edema 1+ with decreased pulses. NEUROLOGIC: Reflexes are not elicited. The patient does not withdraw to stimuli. Babinski negative. Cranial nerves not tested. SKIN: Dry and cool. Assessment and Plan Assessment and Plan IMPRESSION 1. Status post cardiopulmonary arrest 2. Acute respiratory failure with hypoxemia and hypercapnia. 3. History of carcinoma of the lung status post radiation and chemotherapy 4. Atelectasis right lung with radiation fibrosis 5. History of depression and anxiety 6. Atrial fibrillation and history of pulmonary emboli. Plan : 1. Leave on vent support and FIO2 40 % 2. Tube feeds at 30 CC 3. Neuro Evaluation 4. Continue nebs qid. 5. CBC,BMP in am. 6. Poor prognosis .Family to decide on Code status Wandy Preciado MD Jan 28, 2017 13:01
--- NOTE | 2017-01-28 13:41 | HHI.CCPN ---
Subjective Remarks/Hospital Course 71 year-old woman, multiple medical problems, presents to the emergency department following cardiac arrest. Patient was reportedly last seen around 4 hours or so before she was found unresponsive. She had no pulse. CPR was started. EMS found the patient asystolic. They continued ACLS, intubation, 3 rounds of epi, some bicarbonate. The return of spontaneous circulation and patient presented to the ED hypotensive but with pulses. No other history is available 01/27: Discussed with son and Dr. Preciado. Patient showing signs of anoxic brain injury. She is overbreathing the ventilator. Trending troponins. Subjective 01/28: Tmax 12.7. Currently hypothermic. Heart rate in the 40s. No gag. No corneal reflex. Anuric. Spoke with son. Objective Vital Signs Date Time Temp Pulse Resp B/P Pulse Ox O2 Delivery O2 Flow Rate FiO2 01/28/17 12:15 96.4 43 7 120/58 100 132/50 01/28/17 12:00 40 01/26/17 22:10 Ventilator 01/26/17 21:45 15.00 Intake and Output 01/27/17 01/27/17 01/27/17 07:59 15:59 23:59 Intake Total 434 ml 301 ml 605 ml Output Total 45 ml 30 ml 50 ml Balance 389 ml 271 ml 555 ml Result Diagram: 01/28/17 0500 01/28/17 0500 Other Results Microbiology Date/Time Procedure Status Source Growth 01/27/17 00:04 Urine Culture - Preliminary Resulted Urine Catheterized Urine NO GROWTH IN 24 HOURS. 01/26/17 22:42 Aerobic Blood Culture - Preliminary Resulted Blood Peripheral NO GROWTH IN 2 DAYS 01/26/17 22:42 Anaerobic Blood Culture - Preliminary Resulted Blood Peripheral NO GROWTH IN 2 DAYS Imaging Last 72 hours Impressions Chest X-Ray 01/27/17 0000 Signed Impressions: Service Date/Time: January 04:20 - CONCLUSION: No significant change with persistent near-complete opacification of the right hemithorax. Larry Curiel MD Head CT 01/26/17 2236 Signed Impressions: Service Date/Time: Thursday, January 26, 2017 23:36 - CONCLUSION: 1. Moderate amount of fluid in the sinuses involving the maxillary, ethmoid, and sphenoid sinuses. High density fluid is seen at the dependent portion of the left maxillary sinus. This may represent hemorrhagic material or proteinaceous material. Polyp or retention cyst is again seen in the left maxillary sinus. The fluid is new compared to the prior study of 01/07/2017. 2. No acute intracranial findings. Larry Curiel MD Chest X-Ray 01/26/176 Signed Impressions: Service Date/Time: Thursday, January 26, 2017 22:35 - CONCLUSION: 1. Near-complete opacification of the right hemithorax again seen. 2. Endotracheal tube and nasogastric tube now in place. Larry Curiel MD Objective Remarks GENERAL: 71-year-old female, critically ill currently orotracheally intubated. SKIN: Warm and dry. Well perfused HEAD: Normocephalic. Atraumatic. EYES: No scleral icterus. No injection or drainage. NECK: Supple, trachea midline. No JVD or lymphadenopathy. CARDIOVASCULAR: Distant. Bradycardic, IR.. S1, S2. No S4. Without murmurs, gallops, or rubs. RESPIRATORY: No breath sounds throughout right lung san[place]. Left breath sounds with fine crackles appreciated GASTROINTESTINAL: Abdomen soft, non-tender, obese. No bowel sounds appreciated MUSCULOSKELETAL: 1+ bilateral lower extremity edema. NEURO: Pupils currently not reactive 3 mm and fixed. No gag. No corneal reflex. Not withdrawing to pain with my examination. No clonus. Urinary Catheter: Yes Assessment to: Continue Barnett insert reason: Prolonged Immobilization Vascular Central Line Catheter: Yes Assessment to: Continue Date of Insertion: Jan 27, 2017 Line: Central Venous Catheter Side: Right Location: Femoral A/P Assessment and Plan Neuro/Psych: Acute encephalopathy likely anoxic Adjustment disorder with missed anxiety and depressed mood Major depressive disorder Gait and balance disorder Chronic headaches Insomnia Chronic benzodiazepine use Continue Versed drip at 5 mg an hour for sedation while intubated Goal of RA SS -2 CT brain 01/27 revealed ethmoid, maxillary and sphenoid sinus fluid levels with possible blood within left maxillary sinus. Neurology has been consulted for prognosis management EEG revealed severe encephalopathy without epileptic activity Holding melatonin 3 mg a night for insomnia Holding Seroquel 100 mg by mouth 3 times a day. Duloxetine 60 mill grams by mouth daily and Xanax 0.5 mg every 4 hours when necessary anxiety. Resume when clinically indicated Daily [place] 5/325 one tablet every 4 hours ordered at home for pain currently being held CV: Cardiac pulmonary arrest likely respiratory related Atrial fibrillation Hypertension Congestive heart failure History of carotid stent History of permanent IVC filter 2012 Mild MR Consult cardiology - Dr. Borrego. No plans for intervention at the present time by neurological status Unknown duration postcardiac arrest - not the candidate for hypothermia protocol per overnight crimp setter Continue aspirin 81 mg by mouth daily Cycle troponins. Trending slowly upwards Continue on heparin drip and hold Xarelto in an Intensive Care Unit patient for more accurate measurement of proper anticoagulation Home medications metoprolol 25 mg every 8 hours resume. Enalapril 20 mg by mouth daily be held in light of possible acute kidney injury. Holding Lasix 20 mg by mouth daily potassium supplementation 2-D echo 11/01 revealed EF 40-45%. No regional wall motion abnormality. Mild MR. 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 Preciado who has been consulted Vocal cord polypectomy by history PC/AC ventilation 20/inspiratory pressure around 20. Inspiratory time 1.0. PEEP of 5. FiO2 40% Ventilator bundle Duo nebs every 6 hours and albuterol every 2 hours. Breakthrough Patient has known scarring the right mainstem bronchus. Follow-up with Dr. Una Mckenna who has been consulted Follow-up chest x-ray in a.m. 01/29 GI: Gastroesophageal reflux disease Chronic pancreatitis Hypoalbuminemia Elevated transaminases Consulted dietary for tube feed recommendations. Started on Nepro goal 50 cc an hour Pepcid for GI prophylaxis. On Zantac 150 mg by [facility] a day [facility] Gwen-Colace for bowel regimen : Barnett catheter has been placed for accurate I's and O's in a critically ill patient Endo: Hypothyroidism Check TSH. Continue Levoxyl 50 mcg daily. Adjust as clinically indicated Sliding-scale insulin/low regimen with Accu-Cheks every 6 hours to maintain euglycemia Renal: Acute kidney injury Likely secondary to hypoperfusion. Check renal ultrasound/urine electrolytes and eosinophils Accurate I's and O's Monitor urine output Heme: Chronic Xarelto use Normocytic anemia Thrombocytopenia Monitor CBC daily. Follow trends. No indications for transfusion of blood process at this time. Holding Xarelto start heparin drip for anticoagulation ID: Urinary tract infection Likely aspiration pneumonia Aztreonam/Flagyl for aspiration to #2. Follow blood cultures 2, sputum and urine. MSK: Osteoarthritis PT when appropriate FEN: Hyponatremia Replace electrolytes as clinically indicated Currently on NS @ 84 cc an hour. Access - Utilize right femoral CVL/arterial line placed in ED 01/27. Prophylaxis - GI -Pepcid - DVT - SCD/heparin drip 30 minutes additional critical care time. Discussed with son. Remains full code. Palliative care consulted. Konrad Cornelius MD Jan 28, 2017 13:41
--- NOTE | 2017-01-28 17:44 | PD.CARD.PN ---
Subjective Subjective Remarks Intubated, unresponsive Objective Medications Current Medications Medications (Trade) Dose Ordered Sig/Lorie Route Start Time Stop Time Status Last Admin (Levophed-Dextrose Drip) 250 ml @ 0 mls/hr TITRATE IV 01/26/17 22:45 01/26/17 23:05 (Brethine Inj) 1 mg UNSCH PRN SQ 01/26/17 22:45 (Ecotrin Ec) 81 mg DAILY PO 01/27/17 09:00 01/28/17 09:58 (Synthroid) 50 mcg DAILY@0600 PO 01/27/17 06:00 01/28/17 05:15 (Lopressor) 25 mg Q8HR PO 01/27/17 06:00 01/27/17 14:57 (Creon 24-76-120) 1 cap TID PO 01/27/17 09:00 01/28/17 13:30 Famotidine 10 mg 10 mg Q12HR PO 01/27/17 09:00 01/28/17 09:57 (NS 1000 ml Inj) 1,000 ml @ 84 mls/hr [id number] IV 01/27/17 00:11 01/28/17 11:22 (NS Flush) 2 ml UNSCH PRN .XX 01/27/17 00:15 (NS Flush) 2 ml BID .XX 01/27/17 09:00 01/28/17 09:58 (Versed Inj) 2 mg Q1H PRN IV 01/27/17 00:15 01/27/17 12:48 (Zofran Inj) 4 mg Q6H PRN IV 01/27/17 00:15 Miscellaneous Information 1 Q361D XX 01/27/17 00:15 (Chlorhexidine 2% Cloth) 3 pack Taper DAILY@04 TOP 01/27/17 04:00 01/23/18 03:59 01/28/17 01:54 (Chlorhexidine 2% Cloth) 3 pack UNSCH PRN TOP 01/27/17 00:15 (Gwen-Colace) 1 tab BID PO 01/27/17 09:00 01/28/17 09:57 (Milk Of Magnesia Liq) 30 ml Q12H PRN PO 01/27/17 00:15 (Senokot) 17.2 mg Q12H PRN PO 01/27/17 00:15 (Dulcolax Supp) 10 mg DAILY PRN RECTAL 01/27/17 00:15 (Lactulose Liq) 30 ml DAILY PRN PO 01/27/17 00:15 (Ofirmev Inj) 1,000 mg Q8HR PRN IV 01/27/17 11:45 Chlorhexidine Gluconate 15 ml 15 ml BID@08,20 MT 01/27/17 20:00 01/28/17 08:00 (Versed 100 Mg/ ml Inj) 100 ml @ 0 mls/hr TITRATE IV 01/27/17 11:45 01/27/17 19:39 (Apresoline Inj) 10 mg Q1HR PRN IV PUSH 01/27/17 12:30 Nitroglycerin 2 inch 2 inch Q6HR PRN TOPICAL 01/27/17 12:30 Aztreonam 2000 mg/ Sodium Chloride 100 ml @ 200 mls/hr Q8H IV 01/27/17 14:00 02/03/17 13:59 01/28/17 13:30 (Flagyl 500 Mg Inj) 100 ml @ 100 mls/hr Q6H IV 01/27/17 13:00 02/03/17 12:59 01/28/17 13:31 (D50w (Vial) Inj) 50 ml UNSCH PRN IV 01/27/17 14:30 (Glucagon Inj) 1 mg UNSCH PRN OTHER 01/27/17 14:30 (NovoLIN R SUPPLEMENTAL SCALE) 1 Q6HR SQ 01/27/17 18:00 (SoluMEDROL INJ) 40 mg BID IV 01/27/17 21:00 01/28/17 09:58 Vital Signs / I&O Vital Signs Date Time Temp Pulse Resp B/P Pulse Ox O2 Delivery O2 Flow Rate FiO2 01/28/17 17:00 97.3 44 20 116/58 100 130/52 01/28/17 16:45 97.2 44 20 115/56 100 129/51 01/28/17 16:30 97.2 43 20 114/56 100 128/50 01/28/17 16:15 97.2 44 20 113/57 100 129/50 01/28/17 16:00 97.1 42 20 112/56 100 125/50 01/28/17 16:00 40 7/14/17 15:45 97.0 43 20 113/56 100 127/51 7/14/17 15:30 97.0 42 20 109/53 100 128/50 7/14/17 15:15 97.0 41 20 120/56 99 124/50 7/14/17 15:13 99 40 7/14/17 15:00 96.8 42 14 115/57 99 128/51 7/14/17 14:45 96.8 42 15 124/58 99 130/51 7/14/17 14:30 96.8 41 18 119/57 100 128/51 7/14/17 14:15 96.6 42 18 122/56 99 125/51 7/14/17 14:00 41 7/14/17 14:00 96.6 41 20 116/56 100 125/51 7/14/17 13:46 96.6 41 20 117/57 100 125/50 7/14/17 13:30 96.6 41 16 118/56 100 129/51 7/14/17 13:16 96.6 41 20 121/58 100 127/50 7/14/17 13:00 96.4 42 20 126/58 100 130/50 7/14/17 12:15 96.4 43 7 120/58 100 132/50 7/14/17 12:00 40 7/14/17 12:00 43 7/14/17 12:00 96.3 43 1 124/60 99 138/52 7/14/17 11:04 100 40 7/14/17 11:00 96.3 41 20 119/58 100 132/50 7/14/17 10:45 96.3 42 20 114/57 100 129/51 7/14/17 10:30 96.3 42 20 115/56 100 130/51 7/14/17 10:15 96.4 42 16 120/58 100 134/50 7/14/17 10:00 96.4 42 20 120/58 100 134/51 7/14/17 10:00 42 7/14/17 09:45 96.6 43 20 120/55 100 138/53 7/14/17 09:30 96.6 44 20 122/60 100 139/54 7/14/17 09:15 96.8 44 20 121/58 100 139/53 7/14/17 09:00 96.8 44 20 121/59 100 139/54 01/28/17 08:45 97.0 43 7 121/59 100 138/53 01/28/17 08:30 97.0 43 10 120/59 100 138/54 01/28/17 08:15 97.2 41 7 123/57 100 141/55 01/28/17 08:07 99 40 01/28/17 08:00 97.2 42 20 123/61 99 142/55 01/28/17 08:00 42 01/28/17 08:00 40 01/28/17 07:45 97.3 42 20 120/58 100 142/55 01/28/17 07:30 97.3 43 20 123/55 100 138/55 01/28/17 07:15 97.5 43 18 119/58 100 137/55 01/28/17 07:00 97.7 43 20 130/60 100 139/54 01/28/17 06:00 44 01/28/17 04:00 50 01/28/17 04:00 45 01/28/17 04:00 99.5 46 20 117/54 100 129/54 01/28/17 03:27 100 50 01/28/17 02:00 45 01/28/17 01:10 100 50 01/28/17 00:00 46 01/28/17 00:00 50 01/28/17 00:00 100.3 46 5 114/56 100 129/53 01/27/17 22:00 51 01/27/17 20:12 100 50 01/27/17 20:00 100.4 57 20 117/58 100 130/50 01/27/17 20:00 50 01/27/17 20:00 57 01/27/17 18:00 60 I/O 01/27/17 01/27/17 01/27/17 01/28/17 01/28/17 01/28/17 06:59 14:59 22:59 06:59 14:59 22:59 Intake Total 176 ml 559 ml 605 ml 600 ml 964 ml Output Total 45 ml 30 ml 50 ml 5 ml 37 ml Balance 131 ml 529 ml 555 ml 595 ml 927 ml IV Total 176 ml 559 ml 605 ml 600 ml 964 ml Output Urine Total 45 ml 30 ml 50 ml 5 ml 37 ml # Bowel Movements 1 0 Physical Exam GENERAL: Intubated, on the vent SKIN: Warm and dry. HEAD: Normocephalic. EYES: No scleral icterus. No injection or drainage. NECK: Supple, trachea midline. No JVD or lymphadenopathy. CARDIOVASCULAR: Regular rate and rhythm without murmurs, gallops, or rubs. RESPIRATORY: Breath sounds equal bilaterally. No accessory muscle use. GASTROINTESTINAL: Abdomen soft, non-tender, nondistended. MUSCULOSKELETAL: No cyanosis, or edema. Laboratory Laboratory Tests Test 01/28/17 05:00 White Blood Count 7.8 TH/MM3 Red Blood Count 2.64 MIL/MM3 Hemoglobin 7.7 GM/DL Hematocrit 23.7 % Mean Corpuscular Volume 89.9 FL Mean Corpuscular Hemoglobin 29.0 PG Mean Corpuscular Hemoglobin 32.2 % Concent Red Cell Distribution Width 19.0 % Platelet Count 112 TH/MM3 Mean Platelet Volume 7.7 FL Neutrophils (%) (Auto) 89.1 % Lymphocytes (%) (Auto) 6.3 % Monocytes (%) (Auto) 4.5 % Eosinophils (%) (Auto) 0.0 % Basophils (%) (Auto) 0.1 % Neutrophils # (Auto) 7.0 TH/MM3 Lymphocytes # (Auto) 0.5 TH/MM3 Monocytes # (Auto) 0.4 TH/MM3 Eosinophils # (Auto) 0.0 TH/MM3 Basophils # (Auto) 0.0 TH/MM3 CBC Comment AUTO DIFF Differential Total Cells 100 Counted Neutrophils % (Manual) 77 % Band Neutrophils % 14 % Lymphocytes % 8 % Monocytes % 1 % Neutrophils # (Manual) 7.1 TH/MM3 Differential Comment FINAL DIFF MANUAL Platelet Estimate LOW Platelet Morphology Comment ENLARGED Ovalocytes 2+ Acanthocytes 1+ Sodium Level 134 MEQ/L Potassium Level 4.1 MEQ/L Chloride Level 99 MEQ/L Carbon Dioxide Level 21.0 MEQ/L Anion Gap 14 MEQ/L Blood Urea Nitrogen 30 MG/DL Creatinine 2.53 MG/DL Estimat Glomerular Filtration 19 ML/MIN Rate Random Glucose 125 MG/DL Calcium Level 7.9 MG/DL Phosphorus Level 2.9 MG/DL Magnesium Level 2.1 MG/DL Total Bilirubin 0.8 MG/DL Aspartate Amino Transf 123 U/L (AST/SGOT) Alanine Aminotransferase 56 U/L (ALT/SGPT) Alkaline Phosphatase 62 U/L Total Protein 5.5 GM/DL Albumin 2.4 GM/DL Thyroid Stimulating Hormone 0.425 uIU/ML 3rd Gen Imaging Last Impressions Chest X-Ray 01/27/17 0000 Signed Impressions: Service Date/Time: January 04:20 - CONCLUSION: No significant change with persistent near-complete opacification of the right hemithorax. Larry Curiel MD Head CT 01/26/17 2236 Signed Impressions: Service Date/Time: Thursday, January 26, 2017 23:36 - CONCLUSION: 1. Moderate amount of fluid in the sinuses involving the maxillary, ethmoid, and sphenoid sinuses. High density fluid is seen at the dependent portion of the left maxillary sinus. This may represent hemorrhagic material or proteinaceous material. Polyp or retention cyst is again seen in the left maxillary sinus. The fluid is new compared to the prior study of 01/07/2017. 2. No acute intracranial findings. Larry Curiel MD Assessment and Plan Problem List: (1) Cardiac arrest (2) Respiratory failure (3) Renal failure (4) Anoxic encephalopathy Assessment and Plan Severe anoxic encephalopathy. Prognosis is very poor. Palliative care consulted. Situation discussed with the family. Shiv Borrego MD Jan 28, 2017 17:43
[2017-01-28] MEDS: MIDAZOLAM 100 MG/ML INJ 100 ML IV SCH (21:05)
[2017-01-29] VITALS (19 sets, daily range): BP systolic 123–170; BP diastolic 59–76; PULSE 52–67; RESP 6–34; TEMP 98–103.2; O2SAT 93–100
[2017-01-29] MEDS: CHLORHEXIDINE GLUCONATE 2 % 1 PACK (2 CLOTHS) TOP SCH (03:12)
[2017-01-29] MEDS: RESP: ALBUTEROL 2.5 MG/IPRATROPIUM 0.5 MG NEB (SCH) INH ×5 (03:59→20:24)
[2017-01-29 05:26] LABS: AUTOMATED NEUTROPHIL # 9.5 TH/MM3 (1.8-7.7); BASOPHIL % 0.1 % (0.0-2.0); HEMATOCRIT 22.9 % (35.0-46.0); HEMO FLAGS DIFF FINAL; LYMPH % 1.4 % (9.0-44.0); LYMPHOCYTE # 0.1 TH/MM3 (1.0-4.8); MEAN CELL VOLUME 90.8 FL (80.0-100.0); MEAN CORPUSCULAR HEMOGLOBIN 30.6 PG (27.0-34.0); MEAN CORPUSCULAR HGB CONC 33.7 % (32.0-36.0); MONO % 4.2 % (0.0-8.0); NEUT % 94.3 % (16.0-70.0); PLATELET COUNT 134 TH/MM3 (150-450); RED BLOOD COUNT 2.53 MIL/MM3 (4.00-5.30); RED CELL DISTRIBUTION WIDTH 19.3 % (11.6-17.2); WHITE BLOOD COUNT 10.1 TH/MM3 (4.0-11.0)
[2017-01-29] MEDS: LEVOTHYROXINE SODIUM 50 MCG TAB PO SCH (05:54)
[2017-01-29] MEDS: AZTREONAM INJ 2,000 MG in SODIUM CHLORIDE 0.9% INJ 100 ML IV SCH (05:54)
[2017-01-29] MEDS: METOPROLOL TARTRATE 25 MG TAB PO SCH ×3 (05:54→21:20)
[2017-01-29] MEDS: INSULIN NovoLIN REGULAR SUPPLEMENTAL SCALE SQ SCH ×3 (05:55→17:43)
[2017-01-29] MEDS: metroNIDAZOLE 500 MG INJ 100 ML IV SCH ×3 (06:03→17:32)
[2017-01-29 06:47] LABS: ALKALINE PHOSPHATASE 61 U/L (45-117); ALT (GPT) 54 U/L (10-53); ANION GAP 9 MEQ/L (5-15); AST (GOT) 100 U/L (15-37); BICARBONATE 26.4 MEQ/L (21.0-32.0); BLOOD UREA NITROGEN 48 MG/DL (7-18); CHLORIDE 99 MEQ/L (98-107); GLOMERULAR FILTRATION RATE 15 ML/MIN (>89); MAGNESIUM 2.2 MG/DL (1.5-2.5); POTASSIUM 3.9 MEQ/L (3.5-5.1); SODIUM (NA) 134 MEQ/L (136-145); TOTAL BILIRUBIN ADULT 0.6 MG/DL (0.2-1.0)
[2017-01-29 07:01] LABS: CREATINE KINASE 100 U/L (26-192)
--- NOTE | 2017-01-29 07:55 | HHI.CCPN ---
Subjective Remarks/Hospital Course 71 year-old woman, multiple medical problems, presents to the emergency department following cardiac arrest. Patient was reportedly last seen around 4 hours or so before she was found unresponsive. She had no pulse. CPR was started. EMS found the patient asystolic. They continued ACLS, intubation, 3 rounds of epi, some bicarbonate. The return of spontaneous circulation and patient presented to the ED hypotensive but with pulses. No other history is available 01/27: Discussed with son and Dr. Preciado. Patient showing signs of anoxic brain injury. She is overbreathing the ventilator. Trending troponins. 01/28: Tmax 102.7. Currently hypothermic. Heart rate in the 40s. No gag. No corneal reflex. Anuric. Spoke with son. Subjective 01/29: Temperature currently 98.8. Essentially anuric. Continues have mild clonus mouth activity. Again spoke with son yesterday very poor prognosis and all physicians on board agree Objective Vital Signs Date Time Temp Pulse Resp B/P Pulse Ox O2 Delivery O2 Flow Rate FiO2 01/29/17 07:22 100 40 01/29/17 06:00 58 01/29/17 04:00 98.8 7 134/63 170/76 01/26/17 22:10 Ventilator 01/26/17 21:45 15.00 Intake and Output 01/28/17 01/28/17 01/28/17 07:59 15:59 23:59 Intake Total 600 ml 964 ml 1152 ml Output Total 5 ml 37 ml 100 ml Balance 595 ml 927 ml 1052 ml Result Diagram: 01/29/17 0430 01/29/17 0430 Other Results Microbiology Date/Time Procedure Status Source Growth 01/27/17 00:04 Urine Culture - Preliminary Resulted Urine Catheterized Urine NO GROWTH IN 24 HOURS. 01/26/17 22:42 Aerobic Blood Culture - Preliminary Resulted Blood Peripheral NO GROWTH IN 2 DAYS 01/26/17 22:42 Anaerobic Blood Culture - Preliminary Resulted Blood Peripheral NO GROWTH IN 2 DAYS Imaging Last 72 hours Impressions Chest X-Ray 01/27/17 0000 Signed Impressions: Service Date/Time: January 04:20 - CONCLUSION: No significant change with persistent near-complete opacification of the right hemithorax. Larry Curiel MD Head CT 01/26/17 2236 Signed Impressions: Service Date/Time: Thursday, January 26, 2017 23:36 - CONCLUSION: 1. Moderate amount of fluid in the sinuses involving the maxillary, ethmoid, and sphenoid sinuses. High density fluid is seen at the dependent portion of the left maxillary sinus. This may represent hemorrhagic material or proteinaceous material. Polyp or retention cyst is again seen in the left maxillary sinus. The fluid is new compared to the prior study of 01/07/2017. 2. No acute intracranial findings. Larry Curiel MD Chest X-Ray 01/26/176 Signed Impressions: Service Date/Time: Thursday, January 26, 2017 22:35 - CONCLUSION: 1. Near-complete opacification of the right hemithorax again seen. 2. Endotracheal tube and nasogastric tube now in place. Larry Curiel MD Objective Remarks GENERAL: 71-year-old female, critically ill currently orotracheally intubated. SKIN: Warm and dry. Well perfused HEAD: Normocephalic. Atraumatic. EYES: No scleral icterus. No injection or drainage. NECK: Supple, trachea midline. No JVD or lymphadenopathy. CARDIOVASCULAR: Distant. Bradycardic, IR.. S1, S2. No S4. Without murmurs, gallops, or rubs. RESPIRATORY: No breath sounds throughout right lung [place]. Left breath sounds with fine crackles appreciated GASTROINTESTINAL: Abdomen soft, non-tender, obese. No bowel sounds appreciated MUSCULOSKELETAL: 1+ bilateral lower extremity edema. NEURO: Pupils currently not reactive 3 mm and fixed. No gag. No corneal reflex. Not withdrawing to pain with my examination. No clonus. Myoclonic activity around mouth Vascular Central Line Catheter: Yes Assessment to: Continue Date of Insertion: Jan 27, 2017 Line: Central Venous Catheter Side: Right Location: Femoral A/P Assessment and Plan Neuro/Psych: Acute encephalopathy likely anoxic Adjustment disorder with missed anxiety and depressed mood Major depressive disorder Gait and balance disorder Chronic headaches Insomnia Chronic benzodiazepine use Continue Versed drip at 5 mg an hour for sedation while intubated Goal of RA SS -2 CT brain 01/27 revealed ethmoid, maxillary and sphenoid sinus fluid levels with possible blood within left maxillary sinus. Neurology has been consulted. Dr. Hamilton very poor prognosis EEG revealed severe encephalopathy without epileptic activity Holding melatonin 3 mg a night for insomnia Holding Seroquel 100 mg by mouth 3 times a day. Duloxetine 60 mill grams by mouth daily and Xanax 0.5 mg every 4 hours when necessary anxiety. Resume when clinically indicated Daily [place] 5/325 one tablet every 4 hours ordered at home for pain currently being held CV: Cardiac pulmonary arrest likely respiratory related Atrial fibrillation Hypertension Congestive heart failure History of carotid stent History of permanent IVC filter 2012 Mild MR Consult cardiology - Dr. Borrego. No plans for intervention at the present time by neurological status. He has signed off Unknown duration postcardiac arrest - not the candidate for hypothermia protocol per overnight medical instructor Continue aspirin 81 mg by mouth daily Cycle troponins. Trending downward currently 0.07 Continue on heparin drip and hold Xarelto in an Intensive Care Unit patient for more accurate measurement of proper anticoagulation Home medications metoprolol 25 mg every 8 hours resume. Enalapril 20 mg by mouth daily be held in light of acute kidney injury. Holding Lasix 20 mg by mouth daily potassium supplementation 2-D echo 11/01 revealed EF 40-45%. No regional wall motion abnormality. Mild MR. 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 Preciado who has been consulted Vocal cord polypectomy by history PC/AC ventilation 20/inspiratory pressure around 20. Inspiratory time 1.0. PEEP of 5. FiO2 40% Ventilator bundle Duo nebs every 6 hours and albuterol every 2 hours. Breakthrough Patient has known scarring the right mainstem bronchus. Follow-up with Dr. Una Mckenna who has been consulted Follow-up chest x-ray in a.m. 01/29 GI: Gastroesophageal reflux disease Chronic pancreatitis Hypoalbuminemia Elevated transaminases Started on Nepro goal 50 cc an hour Pepcid for GI prophylaxis. On Zantac 150 mg by mouth twice a day at [facility] Gwen-Colace for bowel regimen : Barnett catheter has been placed for accurate I's and O's in a critically ill patient Endo: Hypothyroidism Check TSH. Continue Levoxyl 50 mcg daily. Adjust as clinically indicated Sliding-scale insulin/low regimen with Accu-Cheks every 6 hours to maintain euglycemia Renal: Acute kidney injury Likely secondary to hypoperfusion. Check renal ultrasound/urine electrolytes and eosinophils Accurate I's and O's Monitor urine output Heme: Chronic Xarelto use Normocytic anemia Thrombocytopenia Monitor CBC daily. Follow trends. No indications for transfusion of blood process at this time. Holding Xarelto start heparin drip for anticoagulation ID: Urinary tract infection Likely aspiration pneumonia Aztreonam/Flagyl for aspiration day #3. Follow blood cultures 2, no growth to date. MSK: Osteoarthritis PT when appropriate FEN: Hyponatremia Replace electrolytes as clinically indicated Currently on NS @ 30 cc an hour. Access - Utilize right femoral CVL/arterial line placed in ED 01/27. Prophylaxis - GI -Pepcid - DVT - SCD/heparin drip 30 minutes critical care time. Konrad Cornelius MD Jan 29, 2017 07:55
[2017-01-29] MEDS ORDERED: PANTOPRAZOLE SODIUM 40 MG VIAL IV PUSH SCH (08:00)
[2017-01-29] MEDS: LIPASE/PROTEASE/AMYLASE (24,000/76,000/120,000) CAP PO SCH ×3 (08:07→17:33)
[2017-01-29] MEDS: methylPREDNISolone SOD SUCC 40 MG/1 ML VIAL IV SCH ×2 (08:07→21:21)
[2017-01-29] MEDS: ASPIRIN EC 81 MG TABEC PO SCH (08:07)
[2017-01-29] MEDS: DOCUSATE SODIUM 50 MG/SENNA 8.6 MG TAB PO SCH ×2 (08:07→21:19)
[2017-01-29] MEDS: CHLORHEXIDINE 0.12% (ORAL KIT) 15 ML CUP MT SCH ×2 (08:09→21:23)
[2017-01-29] MEDS: FAMOTIDINE 20 MG TAB PO SCH ×2 (08:14→21:20)
[2017-01-29] MEDS: ARTIFICIAL TEARS OPTH OINT 3.5 APPLIC/3.5 GM TUBO EACH EYE SCH ×2 (08:20→21:00)
[2017-01-29] MEDS: SODIUM CHLORIDE 0.9% FLUSH 10 ML FLUSH SCH ×2 (08:21→21:23)
--- NOTE | 2017-01-29 08:24 | RADRPT ---
EXAM DATE/TIME: 01/29/2017 07:47 [facility] COMPARISON: CHEST SINGLE AP, January 27, 2017, 4:20. INDICATIONS : Shortness of breath. MEDICAL HISTORY : None. SURGICAL HISTORY : None. ENCOUNTER: Initial ACUITY: 1 day PAIN SCORE: Non-responsive. LOCATION: Bilateral chest FINDINGS: No significant change is noted. The right hemithorax remains almost completely opacified. Mild vascular engorgement is identified in the left lung. Heart and mediastinal structures are stable. Endotracheal and nasogastric tubes are in stable position. CONCLUSION: Persistent subtotal opacification of the right hemithorax without significant improvement. Trent Glynn MD on January 29, 2017 at 8:21 Board Certified Radiologist. This report was verified electronically.
[2017-01-29] MEDS: AZTREONAM INJ 1,000 MG in SODIUM CHLORIDE 0.9% INJ 100 ML IV SCH ×2 (13:47→21:20)
[2017-01-29] MEDS: MIDAZOLAM 100 MG/ML INJ 100 ML IV SCH (13:53)
[2017-01-29] MEDS: SODIUM CHLOR 0.9% 1000 ML INJ 1,000 ML IV SCH (17:48)
[2017-01-30] VITALS (20 sets, daily range): BP systolic 103–164; BP diastolic 52–73; PULSE 51–94; RESP 9–47; TEMP 99.3–101.6; O2SAT 87–100
[2017-01-30] MEDS: RESP: ALBUTEROL 2.5 MG/IPRATROPIUM 0.5 MG NEB (SCH) INH ×4 (03:47→20:00)
[2017-01-30 03:56] LABS: AUTOMATED NEUTROPHIL # 13.2 TH/MM3 (1.8-7.7); BASOPHIL % 0.1 % (0.0-2.0); EOSINOPHIL % 0.1 % (0.0-4.0); HEMATOCRIT 25.3 % (35.0-46.0); LYMPH % 1.9 % (9.0-44.0); LYMPHOCYTE # 0.3 TH/MM3 (1.0-4.8); MEAN CELL VOLUME 90.6 FL (80.0-100.0); MEAN CORPUSCULAR HEMOGLOBIN 29.7 PG (27.0-34.0); MEAN CORPUSCULAR HGB CONC 32.8 % (32.0-36.0); MONO % 4.5 % (0.0-8.0); NEUT % 93.4 % (16.0-70.0); PLATELET COUNT 138 TH/MM3 (150-450); RED BLOOD COUNT 2.79 MIL/MM3 (4.00-5.30); RED CELL DISTRIBUTION WIDTH 19.2 % (11.6-17.2); WHITE BLOOD COUNT 14.2 TH/MM3 (4.0-11.0)
[2017-01-30 03:58] LABS: HEMO FLAGS AUTO DIFF
[2017-01-30] MEDS: CHLORHEXIDINE GLUCONATE 2 % 1 PACK (2 CLOTHS) TOP SCH ×2 (04:00→06:34)
[2017-01-30 04:24] LABS: BANDS 19 % (0-6); METAMYELOCYTES 1 % (0-1); NEUTROPHIL # MANUAL DIFF 13.1 TH/MM3 (1.8-7.7); POLYS (SEG NEUTROPHILS) 72 % (16-70); WBC DIFF SAMPLE 100
[2017-01-30 04:25] LABS: ACANTHOCYTES 1+ (NORMAL); KERATOCYTES OCC (NORMAL); OVALOCYTES 1+ (NORMAL); PLATELET ESTIMATE SMEAR LOW (NORMAL); PLATELET MORPHOLOGY NORMAL (NORMAL); SCAN/DIFF FINAL DIFF MANUAL; TEARDROP RBCS 1+ (NORMAL)
[2017-01-30 04:38] LABS: ALKALINE PHOSPHATASE 72 U/L (45-117); ALT (GPT) 98 U/L (10-53); ANION GAP 10 MEQ/L (5-15); AST (GOT) 167 U/L (15-37); BICARBONATE 22.8 MEQ/L (21.0-32.0); BLOOD UREA NITROGEN 64 MG/DL (7-18); CHLORIDE 99 MEQ/L (98-107); GLOMERULAR FILTRATION RATE 13 ML/MIN (>89); MAGNESIUM 2.2 MG/DL (1.5-2.5); POTASSIUM 4.1 MEQ/L (3.5-5.1); SODIUM (NA) 132 MEQ/L (136-145); TOTAL BILIRUBIN ADULT 0.6 MG/DL (0.2-1.0)
[2017-01-30 04:39] LABS: CREATINE KINASE 49 U/L (26-192)
[2017-01-30] MEDS: AZTREONAM INJ 1,000 MG in SODIUM CHLORIDE 0.9% INJ 100 ML IV SCH ×3 (04:51→23:05)
[2017-01-30] MEDS: metroNIDAZOLE 500 MG INJ 100 ML IV SCH ×3 (04:51→13:32)
[2017-01-30] MEDS: LEVOTHYROXINE SODIUM 50 MCG TAB PO SCH ×2 (04:52→06:34)
[2017-01-30] MEDS: METOPROLOL TARTRATE 25 MG TAB PO SCH ×3 (04:52→22:00)
[2017-01-30] MEDS: INSULIN NovoLIN REGULAR SUPPLEMENTAL SCALE SQ SCH ×4 (06:00→18:00)
[2017-01-30] MEDS: MIDAZOLAM 100 MG/ML INJ 100 ML IV SCH (06:33)
[2017-01-30] MEDS: CHLORHEXIDINE 0.12% (ORAL KIT) 15 ML CUP MT SCH ×2 (08:00→21:34)
[2017-01-30] MEDS: DOCUSATE SODIUM 50 MG/SENNA 8.6 MG TAB PO SCH ×2 (08:36→21:32)
[2017-01-30] MEDS: FAMOTIDINE 20 MG TAB PO SCH ×2 (08:36→21:33)
[2017-01-30] MEDS: LIPASE/PROTEASE/AMYLASE (24,000/76,000/120,000) CAP PO SCH ×3 (08:36→19:10)
[2017-01-30] MEDS: methylPREDNISolone SOD SUCC 40 MG/1 ML VIAL IV SCH ×2 (08:36→21:33)
[2017-01-30] MEDS: ASPIRIN EC 81 MG TABEC PO SCH (08:37)
--- NOTE | 2017-01-30 08:38 | HHI.CCPN ---
Subjective Remarks/Hospital Course 71 year-old woman, multiple medical problems, presents to the emergency department following cardiac arrest. Patient was reportedly last seen around 4 hours or so before she was found unresponsive. She had no pulse. CPR was started. EMS found the patient asystolic. They continued ACLS, intubation, 3 rounds of epi, some bicarbonate. The return of spontaneous circulation and patient presented to the ED hypotensive but with pulses. No other history is available 01/27: Discussed with son and Dr. Preciado. Patient showing signs of anoxic brain injury. She is overbreathing the ventilator. Trending troponins. 01/28: Tmax 102.7. Currently hypothermic. Heart rate in the 40s. No gag. No corneal reflex. Anuric. Spoke with son. 01/29: Temperature currently 98.8. Essentially anuric. Continues have mild clonus mouth activity. Again spoke with son yesterday very poor prognosis and all physicians on board agree Subjective 01/30: Remains severely encephalopathy critically ill. No spontaneous moments of any extremities noted. Mild involuntary clonus like movements of the mouth. I will repeat EEG today, MRI of the brain without contrast. Continues to spike fever white count now of 14.2 increasing, MAXIMUM TEMPERATURE 103.2. Will repeat panculture. Creatinine is worsening today3.4, urine output 403 ml in 24 hours Objective Vital Signs Date Time Temp Pulse Resp B/P Pulse Ox O2 Delivery O2 Flow Rate FiO2 01/30/17 07:28 99 40 01/30/17 06:00 61 01/30/17 05:00 100.7 23 127/60 150/64 01/26/17 22:10 Ventilator 01/26/17 21:45 15.00 Intake and Output 01/29/17 01/29/17 01/30/17 08:00 16:00 00:00 Intake Total 601 ml 1283 ml 611 ml Output Total 8 ml 3 ml 250 ml Balance 593 ml 1280 ml 361 ml Result Diagram: 01/30/17 0340 01/30/17 0340 Imaging Last 72 hours Impressions Chest X-Ray 01/27/17 0000 Signed Impressions: Service Date/Time: January 04:20 - CONCLUSION: No significant change with persistent near-complete opacification of the right hemithorax. Larry Curiel MD Head CT [id number] Signed Impressions: Service Date/Time: Thursday, January 26, 2017 23:36 - CONCLUSION: 1. Moderate amount of fluid in the sinuses involving the maxillary, ethmoid, and sphenoid sinuses. High density fluid is seen at the dependent portion of the left maxillary sinus. This may represent hemorrhagic material or proteinaceous material. Polyp or retention cyst is again seen in the left maxillary sinus. The fluid is new compared to the prior study of 01/07/2017. 2. No acute intracranial findings. Larry Curiel MD Chest X-Ray [id number]/26/172235 Signed Impressions: Service Date/Time: Thursday, January 26, 2017 22:35 - CONCLUSION: 1. Near-complete opacification of the right hemithorax again seen. 2. Endotracheal tube and nasogastric tube now in place. Larry Curiel MD Objective Remarks GENERAL: 71-year-old female, critically ill currently orotracheally intubated. SKIN: Warm and dry. Well perfused HEAD: Normocephalic. Atraumatic. EYES: No scleral icterus. No injection or drainage. NECK: Supple, trachea midline. No JVD or lymphadenopathy. CARDIOVASCULAR: Distant. S1, S2. No S4. Without murmurs, gallops, or rubs. RESPIRATORY: No breath sounds throughout right lung san[place]. Left breath sounds with fine crackles appreciated GASTROINTESTINAL: Abdomen soft, non-tender, obese. No bowel sounds appreciated MUSCULOSKELETAL: 1+ bilateral lower extremity edema. NEURO: Pupils currently not reactive 3 mm and fixed. No gag. No corneal reflex. Not withdrawing to pain with my examination. Involuntary movement/ myoclonus of lower lips Date of Insertion: Jan 27, 2017 Line: Central Venous Catheter Side: Right Location: Femoral A/P Assessment and Plan Neuro/Psych: Severe anoxic encephalopathy acute Adjustment disorder with missed anxiety and depressed mood Major depressive disorder Chronic headaches Insomnia Chronic benzodiazepine use On Versed drip at 5 mg an hour-Will discontinue Repeat EEG today off sedation MRI of the brain to evaluate anoxic brain injury CT brain 01/27 revealed ethmoid, maxillary and sphenoid sinus fluid levels with possible blood within left maxillary sinus. Neurology has been consulted. Dr. Hamilton very poor prognosis EEG revealed severe encephalopathy without epileptic activity Holding melatonin 3 mg a night for insomnia Holding Seroquel 100 mg by mouth 3 times a day, Duloxetine 60 mill grams by mouth daily and Xanax 0.5 mg every 4 hours when necessary anxiety. Resume when clinically indicated Daily [place] 5/325 one tablet every 4 hours ordered at home for pain currently being held CV: Cardiac pulmonary arrest likely respiratory related Atrial fibrillation Hypertension Congestive heart failure History of carotid stent History of permanent IVC filter 2012 Mild MR Cardiology - Dr. Borrego. No plans for intervention at the present time by neurological status. 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 Enalapril 20 mg by mouth daily be held in light of acute kidney injury. Holding Lasix 20 mg by mouth daily potassium supplementation 2-D echo 11/01 revealed EF 40-45%. No regional wall motion abnormality. Mild MR. 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 Preciado who has been consulted Vocal cord polypectomy by history PC/AC ventilation 20/inspiratory pressure around 20. Inspiratory time 1.0. PEEP of 5. FiO2 40%-Change to ACV today Ventilator bundle. Duo nebs every 6 hours and albuterol every 2 hours PRN Patient has known scarring the right mainstem bronchus. Dr. Preciado has been consulted Follow-up chest x-ray in a.m. 01/30 GI: Gastroesophageal reflux disease Chronic pancreatitis Hypoalbuminemia Elevated transaminases Nepro goal 50 cc an hour Pepcid for GI prophylaxis. On Zantac 150 mg by mouth twice a day at [facility] Gwen-Colace for bowel regimen : Barnett catheter has been placed for accurate I's and O's in a critically ill patient Endo: Hypothyroidism Continue Levoxyl 50 mcg daily. Adjust as clinically indicated Sliding-scale insulin/low regimen with Accu-Cheks every 6 hours to maintain euglycemia Renal: Acute kidney injury Likely secondary to hypoperfusion. Worsening creatinine today 3.44-not a candidate for hemodialysis due to very poor neurological status Accurate I's and O's Monitor urine output Heme: Chronic Xarelto use Normocytic anemia Thrombocytopenia Monitor CBC daily. Follow trends. No indications for transfusion of blood Holding Xarelto, on heparin drip for anticoagulation ID: Severe sepsis, persistent high fever Urinary tract infection Aspiration pneumonia Aztreonam/Flagyl for aspiration day #4. Follow blood cultures 2, no growth to date. Start Zyvox 600 BID Repeat blood urine and sputum culture MSK: Osteoarthritis PT when appropriate FEN: Hyponatremia Replace electrolytes as clinically indicated Currently on NS @ 30 cc an hour. Access - DC right femoral CVL/arterial line placed in ED 01/27. Prophylaxis - GI -Pepcid - DVT - SCD/heparin drip 35 minutes critical care time. Dulce Noe MD Jan 30, 2017 08:38
[2017-01-30] MEDS: SODIUM CHLORIDE 0.9% FLUSH 10 ML FLUSH SCH ×2 (08:52→21:34)
[2017-01-30] MEDS: ARTIFICIAL TEARS OPTH OINT 3.5 APPLIC/3.5 GM TUBO EACH EYE SCH ×2 (09:00→21:33)
[2017-01-30] MEDS: LINEZOLID 600 MG PREMIX 300 ML IV SCH ×2 (09:12→21:33)
--- NOTE | 2017-01-30 16:05 | RADRPT ---
EXAM DATE/TIME: 01/30/2017 14:49 This report includes an Addendum and supersedes previous reports for this exam. [facility] COMPARISON: CT BRAIN W/O CONTRAST, January 26, 2017, 23:36. INDICATIONS : Anoxic brain injury. MEDICAL HISTORY : Carcinoma, lung. Hypertension. SURGICAL HISTORY : Cholecystectomy. Throat ENCOUNTER: Initial ACUITY: 1 day PAIN SCORE: 0/10 LOCATION: cranial TECHNIQUE: Multiplanar, multisequence MRI of the brain was performed without contrast. FINDINGS: There is no evidence for intracranial hemorrhage, mass effect, mass lesions, edema, or extra-axial fl uid collections. There are no signs of acute infarction for technique. The diffusion portion, and po stcontrast portion are unremarkable. Slight degree of brain atrophy is seen. Slight periventricular w ariela matter changes are seen nonspecific mostly consistent with chronic small vessel ischemic changes . There is extensive opacification of multiple sinuses including the sphenoid sinuses and bilateral m axillary sinuses. CONCLUSION: Chronic atrophic and small vessel ischemic changes without any evidence for acute hemorrhage or mass effect and chronic sinusitis. Lian Wilburn MD on January 30, 2017 at 16:00 Board Certified Radiologist. This report was verified electronically. ADDENDUM: Upon reading reviewing the MR brain. There are subtle areas of high flair abnormality in th e cerebral cortex most notably within the frontal parietal lobes along the high convexities with rest ricted diffusion consistent with anoxic brain injury. Quang Clarke MD on January 31, 2017 at 10:43 Board Certified Radiologist. This report was verified electronically.
[2017-01-30] MEDS: SODIUM CHLOR 0.9% 1000 ML INJ 1,000 ML IV SCH (18:47)
--- NOTE | 2017-01-30 21:47 | MG ---
cc: RADHA LANDRY M.D. Lab No: Date: 01/30/2017 Age: Sex: F Race: EEG NUMBER [id number] INTRODUCTION Intubated. Hyperventilation not performed. Had a burst suppression pattern before. A 71-year-old, found unresponsive. MEDICATIONS 1. Aspirin. 2. Metronidazole. 3. Solu-Medrol. 4. Versed. DESCRIPTION OF THE RECORDING A low amplitude 9 Hz 30-40 microvolt diffuse rhythm is seen. No burst suppression is seen. No epileptiform or seizure activity is noted. No hemisphere asymmetries are seen. Photic stimulation was performed without significant posterior driving. IMPRESSION A generally unremarkable recording. There is some generally low amplitudes but within a normal alpha range, could be medication effect. No focal abnormalities were noted. No seizure activity seen. This is improved from prior. MD KARLOS Santana/KK /9:43 PM /9:49 PM
[2017-01-31] VITALS (18 sets, daily range): BP systolic 129–147; BP diastolic 63–72; PULSE 80–97; RESP 11–27; TEMP 98–98.8; O2SAT 97–100
[2017-01-31] MEDS: METOPROLOL TARTRATE 25 MG TAB PO SCH ×4 (00:19→22:00)
[2017-01-31] MEDS: INSULIN NovoLIN REGULAR SUPPLEMENTAL SCALE SQ SCH ×4 (00:28→17:59)
[2017-01-31] MEDS: metroNIDAZOLE 500 MG INJ 100 ML IV SCH ×4 (01:00→17:59)
[2017-01-31] MEDS: RESP: ALBUTEROL 2.5 MG/IPRATROPIUM 0.5 MG NEB (SCH) INH ×4 (03:19→19:20)
[2017-01-31] MEDS: LEVOTHYROXINE SODIUM 50 MCG TAB PO SCH (05:12)
[2017-01-31] MEDS: AZTREONAM INJ 1,000 MG in SODIUM CHLORIDE 0.9% INJ 100 ML IV SCH ×2 (05:12→13:38)
--- NOTE | 2017-01-31 06:05 | RADRPT ---
EXAM DATE/TIME: 01/31/2017 04:46 [facility] COMPARISON: CHEST SINGLE AP, January 29, 2017, 7:47. INDICATIONS : Shortness of breath. MEDICAL HISTORY : None. SURGICAL HISTORY : None. ENCOUNTER: Subsequent ACUITY: 4 - 6 days PAIN SCORE: 0/10 LOCATION: Bilateral chest FINDINGS: The support devices remain in place. There continues to be a complete opacification the right in the thorax. This is unchanged compared to the prior study. The left lung remains grossly clear. The heart size is stable. The bony structures are stable. No evidence of pneumothorax. CONCLUSION: No significant interval change. Arie Olvera MD on January 31, 2017 at 6:03 Board Certified Radiologist. This report was verified electronically.
[2017-01-31 06:52] LABS: AUTOMATED NEUTROPHIL # 6.1 TH/MM3 (1.8-7.7); BASOPHIL # 0.1 TH/MM3 (0-0.2); EOSINOPHIL % 0.3 % (0.0-4.0); HEMATOCRIT 21.9 % (35.0-46.0); LYMPHOCYTE # 0.1 TH/MM3 (1.0-4.8); MEAN CELL VOLUME 88.8 FL (80.0-100.0); MEAN CORPUSCULAR HEMOGLOBIN 29.9 PG (27.0-34.0); MEAN CORPUSCULAR HGB CONC 33.6 % (32.0-36.0); NEUT % 91.7 % (16.0-70.0); PLATELET COUNT 102 TH/MM3 (150-450); RED BLOOD COUNT 2.47 MIL/MM3 (4.00-5.30); RED CELL DISTRIBUTION WIDTH 19.2 % (11.6-17.2); WHITE BLOOD COUNT 6.7 TH/MM3 (4.0-11.0)
[2017-01-31 06:55] LABS: HEMO FLAGS AUTO DIFF
[2017-01-31 07:13] LABS: ANION GAP 12 MEQ/L (5-15); AST (GOT) 84 U/L (15-37); BICARBONATE 22.4 MEQ/L (21.0-32.0); BLOOD UREA NITROGEN 64 MG/DL (7-18); CHLORIDE 100 MEQ/L (98-107); GLOMERULAR FILTRATION RATE 16 ML/MIN (>89); POTASSIUM 3.6 MEQ/L (3.5-5.1); SODIUM (NA) 134 MEQ/L (136-145)
[2017-01-31 07:19] LABS: ALKALINE PHOSPHATASE 57 U/L (45-117); ALT (GPT) 73 U/L (10-53); TOTAL BILIRUBIN ADULT 0.5 MG/DL (0.2-1.0)
[2017-01-31 08:16] LABS: OVALOCYTES 1+ (NORMAL); SCAN/DIFF AUTO DIFF CONFIRMED
[2017-01-31 08:17] LABS: ACANTHOCYTES 1+ (NORMAL); BURR CELLS 1+ (NORMAL); KERATOCYTES OCC (NORMAL); PLATELET ESTIMATE SMEAR LOW (NORMAL); PLATELET MORPHOLOGY NORMAL (NORMAL)
[2017-01-31] MEDS: LINEZOLID 600 MG PREMIX 300 ML IV SCH ×2 (08:35→21:00)
[2017-01-31] MEDS: ARTIFICIAL TEARS OPTH OINT 3.5 APPLIC/3.5 GM TUBO EACH EYE SCH (08:35)
[2017-01-31] MEDS: FAMOTIDINE 20 MG TAB PO SCH ×2 (08:36→21:00)
[2017-01-31] MEDS: CHLORHEXIDINE 0.12% (ORAL KIT) 15 ML CUP MT SCH (08:36)
[2017-01-31] MEDS: SODIUM CHLORIDE 0.9% FLUSH 10 ML FLUSH SCH (08:36)
[2017-01-31] MEDS: DOCUSATE SODIUM 50 MG/SENNA 8.6 MG TAB PO SCH ×2 (08:36→21:00)
[2017-01-31] MEDS: ASPIRIN EC 81 MG TABEC PO SCH (08:36)
[2017-01-31] MEDS: methylPREDNISolone SOD SUCC 40 MG/1 ML VIAL IV SCH ×2 (08:37→21:00)
[2017-01-31] MEDS: LIPASE/PROTEASE/AMYLASE (24,000/76,000/120,000) CAP PO SCH ×3 (08:37→17:59)
--- NOTE | 2017-01-31 10:22 | HHI.CCPN ---
Subjective Remarks/Hospital Course 71 year-old woman, multiple medical problems, presents to the emergency department following cardiac arrest. Patient was reportedly last seen around 4 hours or so before she was found unresponsive. She had no pulse. CPR was started. EMS found the patient asystolic. They continued ACLS, intubation, 3 rounds of epi, some bicarbonate. The return of spontaneous circulation and patient presented to the ED hypotensive but with pulses. No other history is available 01/27: Discussed with son and Dr. Preciado. Patient showing signs of anoxic brain injury. She is overbreathing the ventilator. Trending troponins. 01/28: Tmax 102.7. Currently hypothermic. Heart rate in the 40s. No gag. No corneal reflex. Anuric. Spoke with son. 01/29: Temperature currently 98.8. Essentially anuric. Continues have mild clonus mouth activity. Again spoke with son yesterday very poor prognosis and all physicians on board agree Subjective 01/30: Remains severely encephalopathy critically ill. No spontaneous moments of any extremities noted. Mild involuntary clonus like movements of the mouth. I will repeat EEG today, MRI of the brain without contrast. Continues to spike fever white count now of 14.2 increasing, MAXIMUM TEMPERATURE 103.2. Will repeat panculture. Creatinine is worsening today3.4, urine output 403 ml in 24 hours 01/31: Patient has no neurological improvement. MRI done yesterday did show some subtle bilateral cortical anoxic changes. EEG improved from prior, No sz. Patient does not show any clinical signs of improvement, pupils are nonreactive no corneal reflex Objective Vital Signs Date Time Temp Pulse Resp B/P Pulse Ox O2 Delivery O2 Flow Rate FiO2 01/31/17 07:41 100 35 01/31/17 06:00 87 01/31/17 04:00 98.6 18 135/63 Intake and Output 01/30/17 01/30/17 01/31/17 08:00 16:00 00:00 Intake Total 303 ml 867 ml 586 ml Output Total 150 ml 375 ml 150 ml Balance 153 ml 492 ml 436 ml Result Diagram: 01/31/17 0601/31/17 06 Imaging Last 72 hours Impressions Chest X-Ray 01/27/17 0000 Signed Impressions: Service Date/Time: January 04:20 - CONCLUSION: No significant change with persistent near-complete opacification of the right hemithorax. Larry Curiel MD Head CT [id number]/26/[id number] Signed Impressions: Service Date/Time: Thursday, January 26, 2017 23:36 - CONCLUSION: 1. Moderate amount of fluid in the sinuses involving the maxillary, ethmoid, and sphenoid sinuses. High density fluid is seen at the dependent portion of the left maxillary sinus. This may represent hemorrhagic material or proteinaceous material. Polyp or retention cyst is again seen in the left maxillary sinus. The fluid is new compared to the prior study of 01/07/2017. 2. No acute intracranial findings. Larry Curiel MD Chest X-Ray 01/26/172235 Signed Impressions: Service Date/Time: Thursday, January 26, 2017 22:35 - CONCLUSION: 1. Near-complete opacification of the right hemithorax again seen. 2. Endotracheal tube and nasogastric tube now in place. Larry Curiel MD Objective Remarks GENERAL: 71-year-old female, critically ill currently orotracheally intubated. SKIN: Warm and dry. Well perfused HEAD: Normocephalic. Atraumatic. EYES: No scleral icterus. No injection or drainage. Equal nonreactive NECK: Supple, trachea midline. No JVD or lymphadenopathy. CARDIOVASCULAR: Distant. S1, S2. No S4. Without murmurs, gallops, or rubs. RESPIRATORY: No breath sounds throughout right lung [place]. Left breath sounds with coarse rhonchi GASTROINTESTINAL: Abdomen soft, non-tender, obese. No bowel sounds appreciated MUSCULOSKELETAL: 1+ bilateral lower extremity edema. NEURO: Pupils currently not reactive 3 mm and fixed. No gag. No corneal reflex. Not withdrawing to pain. Involuntary movement/myoclonus of lower lips Date of Insertion: Jan 27, 2017 Line: Central Venous Catheter Side: Right Location: Femoral A/P Assessment and Plan Neuro/Psych: Severe anoxic encephalopathy, acute Adjustment disorder with missed anxiety and depressed mood Major depressive disorder Chronic headaches Insomnia Chronic benzodiazepine use Off all sedation Repeat EEG 01/30 shows some interval improvement. Prev EEG revealed severe encephalopathy without epileptic activity MRI of the brain to evaluate anoxic brain injury-Dr. Clarke states some subtle changes of anoxia in bilateral cerebral cortex CT brain 01/27 revealed ethmoid, maxillary and sphenoid sinus fluid levels with possible blood within left maxillary sinus. Neurology Dr. Hamilton following Holding melatonin 3 mg a night for insomnia Holding Seroquel 100 mg by mouth 3 times a day, Duloxetine 60 mill grams by mouth daily and Xanax 0.5 mg every 4 hours when necessary anxiety. Resume when clinically indicated Daily [place] 5/325 one tablet every 4 hours ordered at home for pain currently being held CV: Cardiac pulmonary arrest likely respiratory related Atrial fibrillation Hypertension Congestive heart failure History of carotid stent History of permanent IVC filter 2012 Mild MR Cardiology - Dr. Borrego. No plans for intervention at the present time by neurological status. 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 Enalapril 20 mg by mouth daily be held in light of acute kidney injury. Holding Lasix 20 mg by mouth daily potassium supplementation 2-D echo 11/01 revealed EF 40-45%. No regional wall motion abnormality. Mild MR. 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 Preciado who has been consulted Vocal cord polypectomy by history ACV mechanical ventilation Ventilator bundle. Duo nebs every 6 hours and albuterol every 2 hours PRN Patient has known scarring the right mainstem bronchus. Dr. Preciado has been consulted Follow-up chest x-ray in a.m. 01/30 Patient unable to protect airway-will not be able to extubate GI: Gastroesophageal reflux disease Chronic pancreatitis Hypoalbuminemia Elevated transaminases Nepro goal 50 cc an hour Pepcid for GI prophylaxis. On Zantac 150 mg by mouth twice a day at long-term Gwen-Colace for bowel regimen : Barnett catheter has been placed for accurate I's and O's in a critically ill patient Endo: Hypothyroidism Continue Levoxyl 50 mcg daily. Adjust as clinically indicated Sliding-scale insulin/low regimen with Accu-Cheks every 6 hours to maintain euglycemia Renal: Acute kidney injury Likely secondary to hypoperfusion. Worsening creatinine yesterday 3.44, but improved today to 2.8 with improved urine out put, after Barnett catheter was irrigated Accurate I's and O's Monitor urine output Heme: Chronic Xarelto use Normocytic anemia Thrombocytopenia Monitor CBC daily. Follow trends. No indications for transfusion of blood Holding Xarelto, on heparin drip for anticoagulation ID: Severe sepsis, persistent high fever Urinary tract infection Aspiration pneumonia Aztreonam/Flagyl for aspiration day #5. Follow blood cultures 2, no growth to date. Started Zyvox 600 BID 01/30 F/u blood urine and sputum culture FEN: Hyponatremia Replace electrolytes as clinically indicated Currently on NS @ 30 cc an hour. Access - DCd right femoral CVL/arterial line on 01/30, placed in ED 01/27. Prophylaxis - GI -Pepcid - DVT - SCD/heparin drip 35 minutes critical care time. Dulce Noe MD Jan 31, 2017 10:22
--- NOTE | 2017-01-31 14:36 | HHI.HCPN ---
Reason for visit a. To assist with evaluation and management of symptoms including: Shortness of breath and debility. b. To assist medical decision maker(s) with: better understanding of current medical conditions; weighing benefits/burdens of medical treatment options; making medical treatment decisions. . Subjective/Interval History Mrs. Tillman is a 71-year-old female, known to palliative care services. This is patient's 7th of acute hospitalization this year, multiple prior hospitalizations and frequent ED visits during the past 12 months. Patient with a past medical history of COPD, A. fib on anticoagulation, hypertension, CHF, among other multiple chronic comorbidities. Patient presented from [facility] via EMS secondary to unwitnessed cardiac arrest. As per medical records, patient was found unresponsive, she had no pulse. CPR was started. EMS found patient asystolic, ACLS started requiring 3 rounds of epinephrine and bicarbonate. ROSC obtained. Patient presented to ED hypotensive but with a pulse. CT of the head negative for acute process. Chest x-ray revealing near complete opacification of the right hemithorax. Patient was admitted for further management. Palliative care has been consulted for further clarifications of goals of care given poor prognosis for survival. Repeat EEG 01/30/17 improved from prior one, no seizure activity noted. Brain MRI 01/30/17 revealing chronic atrophic and small vessel ischemic changes, subtle areas of high flair abnormality consistent with anoxic brain injury. Patient seen in ICU, she remains orally intubated on mechanical ventilation. Unresponsive to verbal or tactile stimuli. Eyes open, no corneal reflex noted. Stable hemodynamically. Currently on 40% FiO2, oxygen saturation in the high 90s. Laboratory work Today revealing WBC 6.7, Hgb 7.4, platelet count 102. Sodium 134, potassium 3.6, BUN/creatinine 64/2.87. Albumin 1.8. Liver enzymes slightly elevated AST 84, ALT 73, alkaline phosphatase 57. No neurological improvement noted. Bedside conversation with patient's son Larry and family friend Fior Calix. Medical update provided. Patient remains on multisystem organ failure. Discussed poor prognosis for meaningful neurological recovery. Discussed risks , benefits and limitations of CPR/cardiac code given patient's current clinical status and poor prognosis. Son electing to continue with aggressive medical management at this time. Family to follow-up with neurology, Dr. Hamilton this evening for medical update and prognosis. Palliative care to follow-up. Case has been discussed with Dr. Noe and bedside RN Jerardo. . Family/friend interactions See interval note. . Advance Directives Living Will: Never completed Health Care Surrogate: Copy in medical record Advance Directive Specifics Date completed: 03/16/2016. . Health Care Surrogate(s): HCS/son Larry Tillman. . Documented care wishes: No living will completed. . Significant change in goals: Goals of care remains unchanged. Aggressive management. . Objective Vital Signs Date Time Temp Pulse Resp B/P Pulse Ox O2 Delivery O2 Flow Rate FiO2 01/31/17 12:00 97 01/31/17 12:00 40 01/31/17 12:00 97.9 97 16 129/64 97 01/31/17 11:31 98 35 01/31/17 10:00 94 01/31/17 08:00 98.1 97 19 134/70 98 01/31/17 08:00 40 01/31/17 08:00 98.1 97 19 134/70 98 01/31/17 08:00 97 01/31/17 07:41 100 35 01/31/17 06:00 87 01/31/17 04:00 40 01/31/17 04:00 98.6 80 18 135/63 99 01/31/17 04:00 80 01/31/17 03:20 99 40 01/31/17 02:00 82 01/31/17 00:58 99 40 01/31/17 00:00 98.8 96 16 147/68 99 01/31/17 00:00 96 01/31/17 00:00 40 01/30/17 22:09 99 40 01/30/17 22:00 56 01/30/17 20:00 99.5 54 21 127/59 98 Arterial Line 01/30/17 20:00 99 40 01/30/17 20:00 54 01/30/17 20:00 40 01/30/17 18:00 65 01/30/17 16:00 51 01/30/17 16:00 99.3 51 47 103/52 87 01/30/17 16:00 40 01/30/17 15:26 100 40 01/30/17 15:24 99 100 Intake & Output 01/31/17 01/31/17 07:00 19:00 Intake Total 1168 ml Output Total 900 ml Balance 268 ml IV Total 1010 ml Tube Feeding 158 ml Output Urine Total 900 ml Physical Exam CONSTITUTIONAL/GENERAL: This is an elderly frail female orally intubated on mechanical ventilation. Unresponsive. TUBES/LINES/DRAINS: ETT, OG, right femoral central line, Barnett catheter, PIV's. SKIN: No jaundice, rashes, or lesions. Ecchymoses on upper extremities. No wounds seen anteriorly. Skin temperature appropriate. Not diaphoretic. HEAD: Atraumatic. Normocephalic. EYES: No corneal reflex noted. No scleral icterus. Eyes open, erythematous. ENT: Unable to evaluate hearing secondary to clinical condition. Nose without bleeding or purulent drainage. Moist oral mucosa. NECK: Trachea midline. Supple. CARDIOVASCULAR: Bradycardic. Irregular rate and rhythm without murmurs, gallops , or rubs. Mottling of bilateral lower and upper extremities. RESPIRATORY/CHEST: Symmetric, unlabored. Coarse breath sounds bilaterally. Orally intubated on mechanical ventilation. GASTROINTESTINAL: Abdomen soft, round, obese. No guarding. Bowel sounds present. GENITOURINARY: Without palpable bladder distension. Barnett catheter in place. MUSCULOSKELETAL: Extremities with osteoarthritic changes to all 4 extremities. NEUROLOGICAL: Unresponsive to verbal or tactile stimuli. not following any commands. PSYCHIATRIC: Unable to assess secondary to clinical condition. . Diagnostic Tests Laboratory Laboratory Tests Test 01/29/17 01/30/17 01/31/17 04:30 03:40 06:23 White Blood Count 10.1 TH/MM3 14.2 TH/MM3 6.7 TH/MM3 (4.0-11.0) (4.0-11.0) (4.0-11.0) Red Blood Count 2.53 MIL/MM3 2.79 MIL/MM3 2.47 MIL/MM3 (4.00-5.30) (4.00-5.30) (4.00-5.30) Hemoglobin 7.7 GM/DL 8.3 GM/DL 7.4 GM/DL (11.6-15.3) (11.6-15.3) (11.6-15.3) Hematocrit 22.9 % 25.3 % 21.9 % (35.0-46.0) (35.0-46.0) (35.0-46.0) Mean Corpuscular Volume 90.8 FL 90.6 FL 88.8 FL (80.0-100.0) (80.0-100.0) (80.0-100.0) Mean Corpuscular Hemoglobin 30.6 PG 29.7 PG 29.9 PG (27.0-34.0) (27.0-34.0) (27.0-34.0) Mean Corpuscular Hemoglobin 33.7 % 32.8 % 33.6 % Concent (32.0-36.0) (32.0-36.0) (32.0-36.0) Red Cell Distribution Width 19.3 % 19.2 % 19.2 % (11.6-17.2) (11.6-17.2) (11.6-17.2) Platelet Count 134 TH/MM3 138 TH/MM3 102 TH/MM3 (150-450) (150-450) (150-450) Mean Platelet Volume 8.5 FL 7.7 FL 8.3 FL (7.0-11.0) (7.0-11.0) (7.0-11.0) Neutrophils (%) (Auto) 94.3 % 93.4 % 91.7 % (16.0-70.0) (16.0-70.0) (16.0-70.0) Lymphocytes (%) (Auto) 1.4 % 1.9 % 2.0 % (9.0-44.0) (9.0-44.0) (9.0-44.0) Monocytes (%) (Auto) 4.2 % (0.0-8.0) 4.5 % (0.0-8.0) 4.0 % (0.0-8.0) Eosinophils (%) (Auto) 0.0 % (0.0-4.0) 0.1 % (0.0-4.0) 0.3 % (0.0-4.0) Basophils (%) (Auto) 0.1 % (0.0-2.0) 0.1 % (0.0-2.0) 2.0 % (0.0-2.0) Neutrophils # (Auto) 9.5 TH/MM3 13.2 TH/MM3 6.1 TH/MM3 (1.8-7.7) (1.8-7.7) (1.8-7.7) Lymphocytes # (Auto) 0.1 TH/MM3 0.3 TH/MM3 0.1 TH/MM3 (1.0-4.8) (1.0-4.8) (1.0-4.8) Monocytes # (Auto) 0.4 TH/MM3 0.6 TH/MM3 0.3 TH/MM3 (0-0.9) (0-0.9) (0-0.9) Eosinophils # (Auto) 0.0 TH/MM3 0.0 TH/MM3 0.0 TH/MM3 (0-0.4) (0-0.4) (0-0.4) Basophils # (Auto) 0.0 TH/MM3 0.0 TH/MM3 0.1 TH/MM3 (0-0.2) (0-0.2) (0-0.2) CBC Comment DIFF FINAL AUTO DIFF AUTO DIFF Differential Comment FINAL DIFF AUTO DIFF MANUAL CONFIRMED Sodium Level 134 MEQ/L 132 MEQ/L 134 MEQ/L (136-145) (136-145) (136-145) Potassium Level 3.9 MEQ/L 4.1 MEQ/L 3.6 MEQ/L (3.5-5.1) (3.5-5.1) (3.5-5.1) Chloride Level 99 MEQ/L 99 MEQ/L 100 MEQ/L (98-107) (98-107) (98-107) Carbon Dioxide Level 26.4 MEQ/L 22.8 MEQ/L 22.4 MEQ/L (21.0-32.0) (21.0-32.0) (21.0-32.0) Anion Gap 9 MEQ/L (5-15) 10 MEQ/L (5-15) 12 MEQ/L (5-15) Blood Urea Nitrogen 48 MG/DL (7-18) 64 MG/DL (7-18) 64 MG/DL (7-18) Creatinine 3.12 MG/DL 3.44 MG/DL 2.87 MG/DL (0.50-1.00) (0.50-1.00) (0.50-1.00) Estimat Glomerular Filtration 15 ML/MIN (>89) 13 ML/MIN (>89) 16 ML/MIN (>89) Rate Random Glucose 138 MG/DL 159 MG/DL 166 MG/DL (74-106) (74-106) (74-106) Calcium Level 7.7 MG/DL 7.8 MG/DL 8.0 MG/DL (8.5-10.1) (8.5-10.1) (8.5-10.1) Phosphorus Level 3.2 MG/DL 3.3 MG/DL (2.5-4.9) (2.5-4.9) Magnesium Level 2.2 MG/DL 2.2 MG/DL (1.5-2.5) (1.5-2.5) Total Bilirubin 0.6 MG/DL 0.6 MG/DL 0.5 MG/DL (0.2-1.0) (0.2-1.0) (0.2-1.0) Aspartate Amino Transf 100 U/L (15-37) 167 U/L (15-37) 84 U/L (15-37) (AST/SGOT) Alanine Aminotransferase 54 U/L (10-53) 98 U/L (10-53) 73 U/L (10-53) (ALT/SGPT) Alkaline Phosphatase 61 U/L (45-117) 72 U/L (45-117) 57 U/L (45-117) Total Creatine Kinase 100 U/L 49 U/L (26-192) (26-192) Troponin I 0.07 NG/ML 0.11 NG/ML (0.02-0.05) (0.02-0.05) Total Protein 5.5 GM/DL 6.0 GM/DL 5.6 GM/DL (6.4-8.2) (6.4-8.2) (6.4-8.2) Albumin 2.3 GM/DL 2.3 GM/DL 1.8 GM/DL (3.4-5.0) (3.4-5.0) (3.4-5.0) Differential Total Cells 100 Counted Neutrophils % (Manual) 72 % (16-70) Band Neutrophils % 19 % (0-6) Lymphocytes % 4 % (9-44) Monocytes % 4 % (0-8) Neutrophils # (Manual) 13.1 TH/MM3 (1.8-7.7) Metamyelocytes 1 % (0-1) Platelet Estimate LOW (NORMAL) LOW (NORMAL) Platelet Morphology Comment NORMAL NORMAL (NORMAL) (NORMAL) Tear Drop Cells 1+ (NORMAL) Ovalocytes 1+ (NORMAL) 1+ (NORMAL) Acanthocytes 1+ (NORMAL) 1+ (NORMAL) Keratocytes OCC (NORMAL) OCC (NORMAL) Lactic Acid Level 1.3 mmol/L (0.4-2.0) Lipase 338 U/L (73-393) [place] Cells 1+ (NORMAL) Result Diagram: 01/31/1723 01/31/17622 Microbiology Microbiology Date/Time Procedure Status Source Growth 01/30/17 08:40 Aerobic Blood Culture Received Blood Peripheral Pending 01/30/17 08:40 Anaerobic Blood Culture Received Blood Peripheral Pending 01/30/17 18:20 Aerobic Blood Culture - Preliminary Resulted Blood Peripheral NO GROWTH IN 1 DAY 01/30/17 18:20 Anaerobic Blood Culture - Preliminary Resulted Blood Peripheral NO GROWTH IN 1 DAY 01/30/17 18:30 Aerobic Blood Culture - Preliminary Resulted Blood Peripheral NO GROWTH IN 1 DAY 01/30/17 18:30 Anaerobic Blood Culture - Preliminary Resulted Blood Peripheral NO GROWTH IN 1 DAY Procedures * 01/26/17 -intubation . Assessment and Plan Disease Oriented Problem List: (1) Cardiac arrest (2) Respiratory failure (3) Atrial fibrillation Symptom Scale: (1) Shortness of breath 0-10 Scale: Unable to quantify Comment: Remains intubated on mechanical ventilation. (2) Debility 0-10 Scale: Unable to quantify Comment: Progressive. Worsen since October 2016. Pertinent Non-Medical Issues Psychosocial: . Has one child. Originally from the [facility]. Spiritual: Denominational adeline. Legal: No living will completed. Designation of healthcare surrogate in file. Ethical issues impacting care: No ethical issues have been identified. . Important Contacts HCS/son Larry Tillman . Family friend Fior Giordano . . Prognosis Mrs. Tillman is a 71-year-old female with multiple chronic issues and multiple hospitalizations within the past 18 months. Patient with progressive decline, resident of intermediate facility since October 2016. Currently status post cardiac arrest, remains on life support. Likely anoxic brain injury. Prognosis is very poor for survival given acute events, multiple chronic comorbidities, multiple recent acute hospitalizations, advanced age and profound physical deconditioning. . Code Status: Full Code Plan * CODE STATUS: Full code. Discussed with son risk, benefits and limitations of CPR given patient's current clinical condition. Son electing for patient to remain full code at this time. * HEALTHCARE DECISION-MAKING: Patient unable to participating medical decision- making secondary to clinical condition, unresponsive. Designation of healthcare surrogate in file, son Larry Tillman listed as HCS. * GOALS OF CARE: Son electing to continue with aggressive management to include FULL code with the understanding that patient's prognosis is very poor in the setting of multisystem organ failure and anoxic brain injury. * 01/31/17 - Bedside conversation with patient's son Larry and family friend Fior Calix. Medical update provided. Patient remains on multisystem organ failure. Discussed poor prognosis for meaningful neurological recovery. Discussed risks, benefits and limitations of CPR/cardiac code given patient's current clinical status and poor prognosis. Son electing to continue with aggressive medical management at this time. Family to follow-up with neurology , Dr. Hamilton this evening for medical update and prognosis. * SYMPTOMS: = Shortness of breath, secondary to acute respiratory failure, COPD. Remains intubated on mechanical ventilation. FiO2 40%. = Debility, progressive and worsened during the past 3 months. * Exhibits B and C signed, placed chart. * Case has been discussed with Dr. Noe and bedside RN Jerardo. * Palliative care contact information has been provided to patient's family. * Palliative care will continue to follow-up for further clarifications of goals of care as patient's clinical course continues to evolve. . Time Spent Total Floor Time (mins): 32 (Total time to include review of medical records, medical update, goals of care discussion with patient's son and case discussion with Dr. Noe at bedside RN Jerardo. ) Face to Face Time (mins): 25 >50% Counseling/Coord of Care: Yes Attestation To help prompt me to consider important information that might be impacting today's encounter and assessment, information from prior notes written by myself or my colleagues may have been "brought forward" into today's note. My signature on this note, however, is an attestation that I personally performed the exam, history, and/or decision-making noted today, and, unless otherwise indicated, the interactions with patient, family, and staff as well as the review of records all occurred today. I also attest that the listed assessment and stated plan reflect my best clinical judgment today based on the combination of historical information, prior notes, and today's exam/ interactions. When time spent is documented, it refers only to time spent today by the signer, or if indicated, combined time spent today by collaborating physician/nurse practitioner. Yolis Guerrier Jan 31, 2017 14:36
[2017-01-31] MEDS ORDERED: VANCOMYCIN INJ 1,000 MG in SODIUM CHLOR 0.9% 250 ML INJ 250 ML IV ONE (16:00)
--- NOTE | 2017-01-31 18:00 | HHI.PR ---
Review/Management Diagnosis 1. Hypoxic/anoxic brain injury status post cardiopulmonary arrest. 2. Acute respiratory failure. 3. History of atrial fibrillation with pulmonary emboli. 4. History of lung cancer. 5. Diabetes mellitus. Plan - I met with the family [son, daughter in law & cousin] at length and explained to them the current clinical status and the results of the neurologic investigations, namely MRI brain that revealed radiologic evidence of hypoxic brain injury, and EEG findings, however, the son states that " I was told that the EEG has improved, and I do not want to arzate into making a decision"; hence, I explained to the family this finding on the previous EEG of 'burst suppression pattern' that was evident while patient was on sedated and ventilated. - The son wants to "make sure that I do not arzate" and pursue another EEG before he makes his decision about further care, he states that she never wanted to be in a vegetative state, and " this is not the quality of life that she wanted or I want her to live". 1. In light of the clinical neurologic evaluation and the results of the neurologic investigations, the current status of the patient carries a very poor prognosis for a meaningful neurologic recovery. 2. Follow up EEG . 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XX 01/27/17 09:00 01/31/17 08:36 (Zofran Inj) 4 mg Q6H PRN IV 01/27/17 00:15 Miscellaneous Information 1 Q361D XX 01/27/17 00:15 (Chlorhexidine 2% Cloth) 3 pack Taper DAILY@04 TOP 01/27/17 04:00 01/23/18 03:59 01/30/17 06:34 (Chlorhexidine 2% Cloth) 3 pack UNSCH PRN TOP 01/27/17 00:15 (Gwen-Colace) 1 tab BID PO 01/27/17 09:00 01/31/17 08:36 (Milk Of Magnesia Liq) 30 ml Q12H PRN PO 01/27/17 00:15 (Senokot) 17.2 mg Q12H PRN PO 01/27/17 00:15 (Dulcolax Supp) 10 mg DAILY PRN RECTAL 01/27/17 00:15 (Lactulose Liq) 30 ml DAILY PRN PO 01/27/17 00:15 (Ofirmev Inj) 1,000 mg Q8HR PRN IV 01/27/17 11:45 01/29/17 17:32 (Peridex 0.12% Liq) 15 ml BID@08,20 MT 01/27/17 20:00 01/31/17 08:36 (Apresoline Inj) 10 mg Q1HR PRN IV PUSH 01/27/17 12:30 Nitroglycerin 2 inch 2 inch Q6HR PRN TOPICAL 01/27/17 12:30 (Flagyl 500 Mg Inj) 100 ml @ 100 mls/hr Q6H IV 01/27/17 13:00 02/03/17 12:59 01/31/17 12:07 (D50w (Vial) Inj) 50 ml UNSCH PRN IV 01/27/17 14:30 (Glucagon Inj) 1 mg UNSCH PRN OTHER 01/27/17 14:30 (NovoLIN R SUPPLEMENTAL SCALE) 1 Q6HR SQ 01/27/17 18:00 01/31/17 12:00 (SoluMEDROL INJ) 40 mg BID IV 01/27/17 21:00 01/31/17 08:37 (Lacrilube Opht Oint) 1 applic Q12HR EACH EYE 01/29/17 09:00 01/31/17 08:35 Famotidine 10 mg 10 mg Q12HR PO 01/29/17 09:00 01/31/17 08:36 Aztreonam 1000 mg/ Sodium Chloride 100 ml @ 200 mls/hr Q8H IV 01/29/17 14:00 02/03/17 13:59 01/31/17 13:38 (Zyvox 600 Mg Premix) 300 ml @ 300 mls/hr Q12H IV 01/30/17 09:00 01/31/17 08:35 Allergies Allergies Coded Allergies Adhesives (Verified Allergy, Severe, RASK, 01/26/17) Calcium Channel Blockers (Verified Allergy, Severe, DIFFICULTY BREATHING, 01/26) Entex LA (Verified Allergy, Severe, Anaphylaxis, 01/26/17) Marcaine (Verified Allergy, Severe, DIFFICULTY BREATHING, 01/26/17) Minocin (Verified Allergy, Severe, DIFFICULTY BREATHING, 01/26/17) Nonsteroidal Anti-Inflammatory Agts (Verified Allergy, Severe, DIFFICULTY BREATHING, 01/26/17) PEANUTS (Verified Allergy, Severe, lips swelling, 01/26/17) Penicillin (Verified Allergy, Severe, DIFFICULTY BREATHING, 01/26/17) Prilosec (Verified Allergy, Severe, DIFFICULTY BREATHING, 01/26/17) Promethazine (Verified Allergy, Severe, DIFFICULTY BREATHING, 01/26/17) Sulfa (Verified Allergy, Severe, DIFFICULTY BREATHING, 01/26/17) Prednisone (Verified Allergy, Intermediate, rash and lips swell, 01/26/17) Zyrtec (Verified Allergy, Intermediate, rash, 01/26/17) Vancomycin (Verified Allergy, Mild, Flushing, 01/26/17) Zyprexa (Verified Adverse Reaction, Severe, Severe vomiting., 01/26/17) Fluticasone (Verified Adverse Reaction, Intermediate, Rawness of the skin around the nose. Inhaled steroids do , 01/26/17) Omeprazole (Verified Adverse Reaction, Intermediate, Matthews funny, 01/26/17) Zithromax (Verified Adverse Reaction, Intermediate, Says it made her jittery and it was harder to breathe. , 01/26/17) *MDRO Multi-Drug Resistant Organism (Unverified Adverse Reaction, Unknown, ESBL, 01/26/17) Uncoded Allergies Racemic Epinephrine Inhaled ( Allergy, Intermediate, Flushing, Mouth Tingling , 08/26/12) Klonapen ( Adverse Reaction, Severe, Caused amnesia and a fall. , 07/10/13) Review of Systems All other ROS: ROS reviewed as documented in chart Exam I&O / VS 01/30/17 01/30/17 01/31/17 15:00 23:00 07:00 Intake Total 867 ml 586 ml 582 ml Output Total 375 ml 150 ml 750 ml Balance 492 ml 436 ml -168 ml IV Total 867 ml 508 ml 502 ml Tube Feeding 0 ml 78 ml 80 ml Output Urine Total 375 ml 150 ml 750 ml # Bowel Movements 0 Vital Signs Date Time Temp Pulse Resp B/P Pulse Ox O2 Delivery O2 Flow Rate FiO2 01/31/17 15:02 98 35 01/31/17 14:00 92 01/31/17 12:00 97 01/31/17 12:00 40 01/31/17 12:00 97.9 97 16 129/64 97 01/31/17 11:31 98 35 01/31/17 10:00 94 01/31/17 08:00 98.1 97 19 134/70 98 01/31/17 08:00 40 01/31/17 08:00 98.1 97 19 134/70 98 01/31/17 08:00 97 01/31/17 07:41 100 35 01/31/17 06:00 87 01/31/17 04:00 40 01/31/17 04:00 98.6 80 18 135/63 99 01/31/17 04:00 80 01/31/17 03:20 99 40 01/31/17 02:00 82 01/31/17 00:58 99 40 01/31/17 00:00 98.8 96 16 147/68 99 01/31/17 00:00 96 01/31/17 00:00 40 01/30/17 22:09 99 40 01/30/17 22:00 56 01/30/17 20:00 99.5 54 21 127/59 98 Arterial Line 01/30/17 20:00 99 40 01/30/17 20:00 54 01/30/17 20:00 40 01/30/17 18:00 65 Exam Comments GENERAL: Overweight, intubated , off sedation HEENT: Atraumatic, normocephalic. NECK: Supple. No carotid bruits. Trachea in the midline. CARDIOVASCULAR: Regular rate and rhythm. RESPIRATORY: Clear breath sounds. MUSCULOSKELETAL: No cyanosis or edema. NEUROLOGIC: Mechanically vented. Pupils left 1-2 mm b/l non reacting to light. No gaze deviation. Absent corneal reflex bilaterally. Absent gag and cough reflex. Absent Oculo-caphalic eye movement [ Doll's eyes]. Plantar reflexes are b/l mute Objective Radiology Results Last 72 hours Impressions Chest X-Ray 01/31/17 0600 Signed Impressions: Service Date/Time: Tuesday, January 31, 2017 04:46 - CONCLUSION: No significant interval change. Arie Olvera MD Brain MRI 01/30/17 0000 Signed Impressions: Service Date/Time: Monday, January 30, 2017 14:49 - CONCLUSION: Chronic atrophic and small vessel ischemic changes without any evidence for acute hemorrhage or mass effect and chronic sinusitis. Lian Wilburn MD ADDENDUM: Upon reading reviewing the MR brain. There are subtle areas of high flair abnormality in the cerebral cortex most notably within the frontal parietal lobes along the high convexities with restricted diffusion consistent with anoxic brain injury. Quang Clarke MD Chest X-Ray 01/29/17 0000 Signed Impressions: Service Date/Time: Sunday, January 29, 2017 07:47 - CONCLUSION: Persistent subtotal opacification of the right hemithorax without significant improvement. Trent Glynn MD Micro and Labs Laboratory Tests Test 01/31/17 06:23 White Blood Count 6.7 Red Blood Count 2.47 Hemoglobin 7.4 Hematocrit 21.9 Mean Corpuscular Volume 88.8 Mean Corpuscular Hemoglobin 29.9 Mean Corpuscular Hemoglobin 33.6 Concent Red Cell Distribution Width 19.2 Platelet Count 102 Mean Platelet Volume 8.3 Neutrophils (%) (Auto) 91.7 Lymphocytes (%) (Auto) 2.0 Monocytes (%) (Auto) 4.0 Eosinophils (%) (Auto) 0.3 Basophils (%) (Auto) 2.0 Neutrophils # (Auto) 6.1 Lymphocytes # (Auto) 0.1 Monocytes # (Auto) 0.3 Eosinophils # (Auto) 0.0 Basophils # (Auto) 0.1 CBC Comment AUTO DIFF Differential Comment AUTO DIFF CONFIRMED Platelet Estimate LOW Platelet Morphology Comment NORMAL Ovalocytes 1+ [place] Cells 1+ Acanthocytes 1+ Keratocytes OCC Sodium Level 134 Potassium Level 3.6 Chloride Level 100 Carbon Dioxide Level 22.4 Anion Gap 12 Blood Urea Nitrogen 64 Creatinine 2.87 Estimat Glomerular Filtration 16 Rate Random Glucose 166 Calcium Level 8.0 Total Bilirubin 0.5 Aspartate Amino Transf 84 (AST/SGOT) Alanine Aminotransferase 73 (ALT/SGPT) Alkaline Phosphatase 57 Total Protein 5.6 Albumin 1.8 Date/Time Procedure Status Source Growth 01/30/17 18:30 Aerobic Blood Culture - Preliminary Resulted Blood Peripheral NO GROWTH IN 1 DAY 01/30/17 18:30 Anaerobic Blood Culture - Preliminary Resulted Blood Peripheral NO GROWTH IN 1 DAY 01/30/17 08:40 Aerobic Blood Culture Received Blood Peripheral Pending 01/30/17 08:40 Anaerobic Blood Culture Received Blood Peripheral Pending 01/27/17 00:04 Urine Culture - Final Complete Urine Catheterized Urine NO GROWTH IN 48 HOURS. 01/26/17 22:42 Aerobic Blood Culture - Final Complete Blood Peripheral NO GROWTH IN 5 DAYS 01/26/17 22:42 Anaerobic Blood Culture - Final Complete Blood Peripheral NO GROWTH IN 5 DAYS Pat Hamilton MD Jan 31, 2017 17:59
[2017-01-31] MEDS: SODIUM CHLOR 0.9% 1000 ML INJ 1,000 ML IV SCH (18:47)
--- NOTE | 2017-01-31 18:47 | PD.CARD.PN ---
Subjective Subjective Remarks Intubated, comatose Objective Medications Current Medications Medications (Trade) Dose Ordered Sig/Lorie Route Start Time Stop Time Status Last Admin (Brethine Inj) 1 mg UNSCH PRN SQ 01/26/17 22:45 (Ecotrin Ec) 81 mg DAILY PO 01/27/17 09:00 01/31/17 08:36 (Synthroid) 50 mcg DAILY@0600 PO 01/27/17 06:00 01/31/17 05:12 (Lopressor) 25 mg Q8HR PO 01/27/17 06:00 01/31/17 13:38 Amylase/Lipase/ Protease 1 cap 1 cap TID PO 01/27/17 09:00 01/31/17 17:59 (NS 1000 ml Inj) 1,000 ml @ 30 mls/hr Q24H IV 01/27/17 00:11 01/30/17 18:47 (NS Flush) 2 ml UNSCH PRN .XX 01/27/17 00:15 (NS Flush) 2 ml BID .XX 01/27/17 09:00 01/31/17 08:36 (Zofran Inj) 4 mg Q6H PRN IV 01/27/17 00:15 Miscellaneous Information 1 Q361D XX 01/27/17 00:15 (Chlorhexidine 2% Cloth) 3 pack Taper DAILY@04 TOP 01/27/17 04:00 01/23/18 03:59 01/30/17 06:34 (Chlorhexidine 2% Cloth) 3 pack UNSCH PRN TOP 01/27/17 00:15 (Gwen-Colace) 1 tab BID PO 01/27/17 09:00 01/31/17 08:36 (Milk Of Magnesia Liq) 30 ml Q12H PRN PO 01/27/17 00:15 (Senokot) 17.2 mg Q12H PRN PO 01/27/17 00:15 (Dulcolax Supp) 10 mg DAILY PRN RECTAL 01/27/17 00:15 (Lactulose Liq) 30 ml DAILY PRN PO 01/27/17 00:15 (Ofirmev Inj) 1,000 mg Q8HR PRN IV 01/27/17 11:45 01/29/17 17:32 (Peridex 0.12% Liq) 15 ml BID@08,20 MT 01/27/17 20:00 01/31/17 08:36 (Apresoline Inj) 10 mg Q1HR PRN IV PUSH 01/27/17 12:30 Nitroglycerin 2 inch 2 inch Q6HR PRN TOPICAL 01/27/17 12:30 (Flagyl 500 Mg Inj) 100 ml @ 100 mls/hr Q6H IV 01/27/17 13:00 02/03/17 12:59 01/31/17 17:59 (D50w (Vial) Inj) 50 ml UNSCH PRN IV 01/27/17 14:30 (Glucagon Inj) 1 mg UNSCH PRN OTHER 01/27/17 14:30 (NovoLIN R SUPPLEMENTAL SCALE) 1 Q6HR SQ 01/27/17 18:00 01/31/17 17:59 (SoluMEDROL INJ) 40 mg BID IV 01/27/17 21:00 01/31/17 08:37 (Lacrilube Opht Oint) 1 applic Q12HR EACH EYE 01/29/17 09:00 01/31/17 08:35 Famotidine 10 mg 10 mg Q12HR PO 01/29/17 09:00 01/31/17 08:36 Aztreonam 1000 mg/ Sodium Chloride 100 ml @ 200 mls/hr Q8H IV 01/29/17 14:00 02/03/17 13:59 01/31/17 13:38 (Zyvox 600 Mg Premix) 300 ml @ 300 mls/hr Q12H IV 01/30/17 09:00 01/31/17 08:35 Vital Signs / I&O Vital Signs Date Time Temp Pulse Resp B/P Pulse Ox O2 Delivery O2 Flow Rate FiO2 01/31/17 16:00 97.9 80 27 144/65 98 01/31/17 16:00 40 01/31/17 15:02 98 35 01/31/17 14:00 92 01/31/17 12:00 97 01/31/17 12:00 40 01/31/17 12:00 97.9 97 16 129/64 97 01/31/17 11:31 98 35 01/31/17 10:00 94 01/31/17 08:00 98.1 97 19 134/70 98 01/31/17 08:00 40 01/31/17 08:00 98.1 97 19 134/70 98 01/31/17 08:00 97 01/31/17 07:41 100 35 01/31/17 06:00 87 01/31/17 04:00 40 01/31/17 04:00 98.6 80 18 135/63 99 01/31/17 04:00 80 01/31/17 03:20 99 40 01/31/17 02:00 82 01/31/17 00:58 99 40 01/31/17 00:00 98.8 96 16 147/68 99 01/31/17 00:00 96 01/31/17 00:00 40 01/30/17 22:09 99 40 01/30/17 22:00 56 01/30/17 20:00 99.5 54 21 127/59 98 Arterial Line 01/30/17 20:00 99 40 01/30/17 20:00 54 01/30/17 20:00 40 I/O 01/30/17 01/30/17 01/30/17 01/31/17 01/31/17 01/31/17 07:00 15:00 23:00 07:00 15:00 23:00 Intake Total 303 ml 867 ml 586 ml 582 ml Output Total 150 ml 375 ml 150 ml 750 ml Balance 153 ml 492 ml 436 ml -168 ml IV Total 303 ml 867 ml 508 ml 502 ml Tube Feeding 0 ml 78 ml 80 ml Output Urine Total 150 ml 375 ml 150 ml 750 ml # Bowel Movements 0 Physical Exam GENERAL: Intubated, on the vent SKIN: Warm and dry. HEAD: Normocephalic. EYES: No scleral icterus. No injection or drainage. NECK: Supple, trachea midline. No JVD or lymphadenopathy. CARDIOVASCULAR: Regular rate and rhythm without murmurs, gallops, or rubs. RESPIRATORY: Breath sounds equal bilaterally. No accessory muscle use. GASTROINTESTINAL: Abdomen soft, non-tender, nondistended. MUSCULOSKELETAL: No cyanosis, or edema. Laboratory Laboratory Tests Test 01/31/17 06:23 White Blood Count 6.7 TH/MM3 Red Blood Count 2.47 MIL/MM3 Hemoglobin 7.4 GM/DL Hematocrit 21.9 % Mean Corpuscular Volume 88.8 FL Mean Corpuscular Hemoglobin 29.9 PG Mean Corpuscular Hemoglobin 33.6 % Concent Red Cell Distribution Width 19.2 % Platelet Count 102 TH/MM3 Mean Platelet Volume 8.3 FL Neutrophils (%) (Auto) 91.7 % Lymphocytes (%) (Auto) 2.0 % Monocytes (%) (Auto) 4.0 % Eosinophils (%) (Auto) 0.3 % Basophils (%) (Auto) 2.0 % Neutrophils # (Auto) 6.1 TH/MM3 Lymphocytes # (Auto) 0.1 TH/MM3 Monocytes # (Auto) 0.3 TH/MM3 Eosinophils # (Auto) 0.0 TH/MM3 Basophils # (Auto) 0.1 TH/MM3 CBC Comment AUTO DIFF Differential Comment AUTO DIFF CONFIRMED Platelet Estimate LOW Platelet Morphology Comment NORMAL Ovalocytes 1+ [place] Cells 1+ Acanthocytes 1+ Keratocytes OCC Sodium Level 134 MEQ/L Potassium Level 3.6 MEQ/L Chloride Level 100 MEQ/L Carbon Dioxide Level 22.4 MEQ/L Anion Gap 12 MEQ/L Blood Urea Nitrogen 64 MG/DL Creatinine 2.87 MG/DL Estimat Glomerular Filtration 16 ML/MIN Rate Random Glucose 166 MG/DL Calcium Level 8.0 MG/DL Total Bilirubin 0.5 MG/DL Aspartate Amino Transf 84 U/L (AST/SGOT) Alanine Aminotransferase 73 U/L (ALT/SGPT) Alkaline Phosphatase 57 U/L Total Protein 5.6 GM/DL Albumin 1.8 GM/DL Imaging Last Impressions Chest X-Ray 01/31/17 0600 Signed Impressions: Service Date/Time: Tuesday, January 31, 2017 04:46 - CONCLUSION: No significant interval change. Arie Olvera MD Brain MRI 01/30/17 0000 Signed Impressions: Service Date/Time: Monday, January 30, 2017 14:49 - CONCLUSION: Chronic atrophic and small vessel ischemic changes without any evidence for acute hemorrhage or mass effect and chronic sinusitis. Lian Wilburn MD ADDENDUM: Upon reading reviewing the MR brain. There are subtle areas of high flair abnormality in the cerebral cortex most notably within the frontal parietal lobes along the high convexities with restricted diffusion consistent with anoxic brain injury. Quang Clarke MD Head CT 01/26/17 0716 Signed Impressions: Service Date/Time: Thursday, January 26, 2017 23:36 - CONCLUSION: 1. Moderate amount of fluid in the sinuses involving the maxillary, ethmoid, and sphenoid sinuses. High density fluid is seen at the dependent portion of the left maxillary sinus. This may represent hemorrhagic material or proteinaceous material. Polyp or retention cyst is again seen in the left maxillary sinus. The fluid is new compared to the prior study of 01/07/2017. 2. No acute intracranial findings. Larry Curiel MD Assessment and Plan Problem List: (1) Cardiac arrest (2) Respiratory failure (3) Renal failure (4) Anoxic encephalopathy Assessment and Plan No improvement of neurologic status. Severe anoxic encephalopathy. Repeat EEG planned for tomorrow. Prognosis is very poor. Palliative care consulted. Situation again discussed with the family, the son will make the decision about the withdrawal of care if EEG shows no improvement. Shiv Borrego MD Jan 31, 2017 18:46
--- NOTE | 2017-01-31 19:18 | HHI.PR ---
Subjective Remarks Comatose on the vent . EEG shows severe encephalopathy. FIO2 35 %. Better urine output. Poor prognosis per Neurology. Objective Vital Signs Date Time Temp Pulse Resp B/P Pulse Ox O2 Delivery O2 Flow Rate FiO2 01/31/17 18:00 90 01/31/17 16:00 97.9 80 27 144/65 98 01/31/17 16:00 80 01/31/17 16:00 40 01/31/17 15:02 98 35 01/31/17 14:00 92 01/31/17 12:00 97 01/31/17 12:00 40 01/31/17 12:00 97.9 97 16 129/64 97 01/31/17 11:31 98 35 01/31/17 10:00 94 01/31/17 08:00 98.1 97 19 134/70 98 01/31/17 08:00 40 01/31/17 08:00 98.1 97 19 134/70 98 01/31/17 08:00 97 01/31/17 07:41 100 35 01/31/17 06:00 87 01/31/17 04:00 40 01/31/17 04:00 98.6 80 18 135/63 99 01/31/17 04:00 80 01/31/17 03:20 99 40 01/31/17 02:00 82 01/31/17 00:58 99 40 01/31/17 00:00 98.8 96 16 147/68 99 01/31/17 00:00 96 01/31/17 00:00 40 01/30/17 22:09 99 40 01/30/17 22:00 56 01/30/17 20:00 99.5 54 21 127/59 98 Arterial Line 01/30/17 20:00 99 40 01/30/17 20:00 54 01/30/17 20:00 40 I/O 01/30/17 01/30/17 01/30/17 01/31/17 01/31/17 01/31/17 07:00 15:00 23:00 07:00 15:00 23:00 Intake Total 303 ml 867 ml 586 ml 582 ml 1200 ml Output Total 150 ml 375 ml 150 ml 750 ml 850 ml Balance 153 ml 492 ml 436 ml -168 ml 350 ml IV Total 303 ml 867 ml 508 ml 502 ml 1200 ml Tube Feeding 0 ml 78 ml 80 ml 0 ml Output Urine Total 150 ml 375 ml 150 ml 750 ml 850 ml # Bowel Movements 0 0 Result Diagram: 01/31/1762201/31/17622 Objective Remarks GENERAL: This is a moderately obese elderly lady who is unresponsive. Her eyes are open and she has some secretions in throat HEENT: Head normocephalic. Pupils are irregular reactive. Throat has secretions. ET tube in place. Nasal mucosa is clear NECK: Supple with mild venous distension. Trachea midline. CHEST: Decreased breath sounds over right lung [place] and wheezes are scattered over the left chest . CARDIAC: Heart sounds are regular S1-S2. No murmur. No S3. ABDOMEN: Soft and nontender. No organomegaly. Bowel sounds are active. EXTREMITIES: Edema 1+ with decreased pulses. NEUROLOGIC: Reflexes are not elicited. The patient does not withdraw to stimuli. Cranial nerves not tested. SKIN: Dry and cool. Assessment and Plan Assessment and Plan IMPRESSION 1. Status post cardiopulmonary arrest 2. Acute respiratory failure with hypoxemia and hypercapnia. 3. History of carcinoma of the lung status post radiation and chemotherapy 4. Atelectasis right lung with radiation fibrosis 5. History of depression and anxiety 6. Atrial fibrillation and history of pulmonary emboli. Plan : 1. Leave on vent support at Rate 18, PEEP +5 and FIO2 40 % 2. Tube feeds at 50 CC 3. Neuro Evaluation 4. Continue nebs qid. 5. CBC,BMP in am. 6. Poor prognosis .Family to decide on Code status Wandy Preciado MD Jan 31, 2017 19:18
[2017-02-01] VITALS (21 sets, daily range): BP systolic 142–158; BP diastolic 67–75; PULSE 69–87; RESP 11–19; TEMP 98.2–98.7; O2SAT 97–100
[2017-02-01] MEDS: CHLORHEXIDINE 0.12% (ORAL KIT) 15 ML CUP MT SCH ×3 (01:12→20:00)
[2017-02-01] MEDS: SODIUM CHLORIDE 0.9% FLUSH 10 ML FLUSH SCH ×3 (01:12→20:27)
[2017-02-01] MEDS: ARTIFICIAL TEARS OPTH OINT 3.5 APPLIC/3.5 GM TUBO EACH EYE SCH ×3 (01:13→20:28)
[2017-02-01] MEDS: AZTREONAM INJ 1,000 MG in SODIUM CHLORIDE 0.9% INJ 100 ML IV SCH ×4 (01:13→21:38)
[2017-02-01] MEDS: metroNIDAZOLE 500 MG INJ 100 ML IV SCH ×5 (01:17→23:57)
[2017-02-01] MEDS: CHLORHEXIDINE GLUCONATE 2 % 1 PACK (2 CLOTHS) TOP SCH (04:00)
[2017-02-01] MEDS: RESP: ALBUTEROL 2.5 MG/IPRATROPIUM 0.5 MG NEB (SCH) INH ×4 (04:21→21:57)
[2017-02-01] MEDS: METOPROLOL TARTRATE 25 MG TAB PO SCH ×3 (05:31→21:38)
[2017-02-01] MEDS: LEVOTHYROXINE SODIUM 50 MCG TAB PO SCH (05:31)
[2017-02-01] MEDS: INSULIN NovoLIN REGULAR SUPPLEMENTAL SCALE SQ SCH ×5 (05:32→23:56)
[2017-02-01] MEDS: ASPIRIN EC 81 MG TABEC PO SCH (08:56)
[2017-02-01] MEDS: LIPASE/PROTEASE/AMYLASE (24,000/76,000/120,000) CAP PO SCH ×3 (08:56→18:19)
[2017-02-01] MEDS: DOCUSATE SODIUM 50 MG/SENNA 8.6 MG TAB PO SCH ×2 (08:56→20:29)
[2017-02-01] MEDS: methylPREDNISolone SOD SUCC 40 MG/1 ML VIAL IV SCH ×2 (08:57→20:28)
[2017-02-01] MEDS: LINEZOLID 600 MG PREMIX 300 ML IV SCH ×2 (08:58→20:28)
--- NOTE | 2017-02-01 11:07 | MG ---
cc: KRISTINE HAMILTON MD Lab No: Date: 02/01/2017 : 1945 Sex: F MEDICAL HISTORY Patient found unresponsive and pulseless. CPR started. Unknown time of return of spontaneous circulation. The patient has been off sedation for more than 72 hours, unresponsive. MEDICATIONS Linezolid, aztreonam, Solu-Medrol, Lopressor, Apresoline, metronidazole, aspirin. DESCRIPTION This is a low voltage EEG recording symmetrical throughout with very slow frequency in the delta range. The EEG recording is contaminated with excessive muscle and movement artifact. Breach rhythm is noted. Hyperventilation was not done. Photic stimulation did not elicit driving response. There were no epileptiform discharges or electrographic seizures noted during the recording. INTERPRETATION A low voltage and diffusely slow slow EEG recording that may indicate moderate to severe encephalopathy that may be secondary to anoxic brain injury. No ictal activity is noted. The absence of electrographic seizures or epileptiform discharges does not rule out the diagnosis of epilepsy. Clinical correlation is recommended. Kristine Hamilton MD RGO/SUKHJINDER /10:54 AM /11:04 AM MTDD
[2017-02-01] MEDS ORDERED: FLUMAZENIL 0.5 MG/5 ML VIAL IV PUSH ONE (11:45)
--- NOTE | 2017-02-01 11:45 | HHI.CCPN ---
Subjective Remarks/Hospital Course 71 year-old woman, multiple medical problems, presents to the emergency department following cardiac arrest. Patient was reportedly last seen around 4 hours or so before she was found unresponsive. She had no pulse. CPR was started. EMS found the patient asystolic. They continued ACLS, intubation, 3 rounds of epi, some bicarbonate. The return of spontaneous circulation and patient presented to the ED hypotensive but with pulses. No other history is available 01/27: Discussed with son and Dr. Preciado. Patient showing signs of anoxic brain injury. She is overbreathing the ventilator. Trending troponins. 01/28: Tmax 102.7. Currently hypothermic. Heart rate in the 40s. No gag. No corneal reflex. Anuric. Spoke with son. 01/29: Temperature currently 98.8. Essentially anuric. Continues have mild clonus mouth activity. Again spoke with son yesterday very poor prognosis and all physicians on board agree Subjective 01/30: Remains severely encephalopathy critically ill. No spontaneous moments of any extremities noted. Mild involuntary clonus like movements of the mouth. I will repeat EEG today, MRI of the brain without contrast. Continues to spike fever white count now of 14.2 increasing, MAXIMUM TEMPERATURE 103.2. Will repeat panculture. Creatinine is worsening today3.4, urine output 403 ml in 24 hours 01/31: Patient has no neurological improvement. MRI done yesterday did show some subtle bilateral cortical anoxic changes. EEG improved from prior, No sz. Patient does not show any clinical signs of improvement, pupils are nonreactive no corneal reflex 02/01: No improvement in clinical exam. No pupillary reaction or corneal reflex. EGD today shows moderate to severe encephalopathy. Family asking information about ventilator withdrawal protocol, but wants input from neurology again. I will give 1 dose of Romazicon 0.5 mg IV x1 Objective Vital Signs Date Time Temp Pulse Resp B/P Pulse Ox O2 Delivery O2 Flow Rate FiO2 02/01/17 11:19 99 35 02/01/17 06:00 69 02/01/17 04:00 98.7 11 147/70 Intake and Output 01/31/17 01/31/17 01/31/17 07:59 15:59 23:59 Intake Total 582 ml 1200 ml 817 ml Output Total 750 ml 850 ml 900 ml Balance -168 ml 350 ml -83 ml Result Diagram: 01/31/17 0623 01/31/17 0623 Imaging Last 72 hours Impressions Chest X-Ray 01/27/17 0000 Signed Impressions: Service Date/Time: January 04:20 - CONCLUSION: No significant change with persistent near-complete opacification of the right hemithorax. Larry Curiel MD Head CT 01/26/172235 Signed Impressions: Service Date/Time: Thursday, January 26, 2017 23:36 - CONCLUSION: 1. Moderate amount of fluid in the sinuses involving the maxillary, ethmoid, and sphenoid sinuses. High density fluid is seen at the dependent portion of the left maxillary sinus. This may represent hemorrhagic material or proteinaceous material. Polyp or retention cyst is again seen in the left maxillary sinus. The fluid is new compared to the prior study of 01/07/2017. 2. No acute intracranial findings. Larry Curiel MD Chest X-Ray 01/26/172235 Signed Impressions: Service Date/Time: Thursday, January 26, 2017 22:35 - CONCLUSION: 1. Near-complete opacification of the right hemithorax again seen. 2. Endotracheal tube and nasogastric tube now in place. Larry Curiel MD Objective Remarks GENERAL: 71-year-old female, critically ill currently orotracheally intubated. SKIN: Warm and dry. Well perfused HEAD: Normocephalic. Atraumatic. EYES: No scleral icterus. No injection or drainage. Equal nonreactive NECK: Supple, trachea midline. No JVD or lymphadenopathy. CARDIOVASCULAR: Distant. S1, S2. No S4. Without murmurs, gallops, or rubs. RESPIRATORY: No breath sounds throughout right lung [place]. Left breath sounds with coarse rhonchi GASTROINTESTINAL: Abdomen soft, non-tender, obese. No bowel sounds appreciated MUSCULOSKELETAL: 1+ bilateral lower extremity edema. NEURO: Pupils currently not reactive 3 mm and fixed. No gag. No corneal reflex. Not withdrawing to pain. Involuntary movement/myoclonus of tongue Date of Insertion: Jan 27, 2017 Line: Central Venous Catheter Side: Right Location: Femoral A/P Assessment and Plan Neuro/Psych: Severe acute anoxic encephalopathy Adjustment disorder with missed anxiety and depressed mood Major depressive disorder Chronic headaches Insomnia Chronic benzodiazepine use Off all sedation, Versed discontinued 01/30/17. Give Romazicon 0.5 mg IV 1 Repeat EEG 01/30 shows some interval improvement. Prev EEG revealed severe encephalopathy without epileptic activity MRI of the brain to evaluate anoxic brain injury-Dr. Clarke states some subtle changes of anoxia in bilateral cerebral cortex CT brain 01/27 revealed ethmoid, maxillary and sphenoid sinus fluid levels with possible blood within left maxillary sinus. Neurology Dr. Hamilton following, prognosis remains very poor Holding melatonin 3 mg a night for insomnia Holding Seroquel 100 mg by mouth 3 times a day, Duloxetine 60 mill grams by mouth daily and Xanax 0.5 mg every 4 hours when necessary anxiety. Resume when clinically indicated Daily [place] 5/325 one tablet every 4 hours ordered at home for pain currently being held CV: Cardiac pulmonary arrest likely respiratory related Atrial fibrillation Hypertension Congestive heart failure History of carotid stent History of permanent IVC filter 2012 Mild MR Cardiology - Dr. Borrego. No plans for intervention at the present time by neurological status. 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 Enalapril 20 mg by mouth daily be held in light of acute kidney injury. Holding Lasix 20 mg by mouth daily potassium supplementation 2-D echo 11/01 revealed EF 40-45%. No regional wall motion abnormality. Mild MR. 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 Preciado who has been consulted Vocal cord polypectomy by history ACV mechanical ventilation Ventilator bundle. Duo nebs every 6 hours and albuterol every 2 hours PRN Patient has known scarring the right mainstem bronchus. Dr. Preciado has been consulted Follow-up chest x-ray in a.m. 01/30 Patient unable to protect airway-will not be able to extubate GI: Gastroesophageal reflux disease Chronic pancreatitis Hypoalbuminemia Elevated transaminases Nepro goal 50 cc an hour Pepcid for GI prophylaxis. On Zantac 150 mg by mouth twice a day at assisted Gwen-Colace for bowel regimen : Barnett catheter has been placed for accurate I's and O's in a critically ill patient Endo: Hypothyroidism Continue Levoxyl 50 mcg daily. Adjust as clinically indicated Sliding-scale insulin/low regimen with Accu-Cheks every 6 hours to maintain euglycemia Renal: Acute kidney failure Likely secondary to hypoperfusion. Worsening creatinine yesterday 3.44, but improved today to 2.8 with improved urine out put, after Barnett catheter was irrigated Accurate I's and O's Monitor urine output Heme: Chronic Xarelto use Normocytic anemia Thrombocytopenia Monitor CBC daily. Follow trends. No indications for transfusion of blood Holding Xarelto, on heparin drip for anticoagulation ID: Sepsis Urinary tract infection Aspiration pneumonia Aztreonam/Flagyl for aspiration day #6. Follow blood cultures 2, no growth to date. Zyvox 600 BID 01/30 F/u blood urine and sputum culture Vanc 1 dose given for GPC in 1/4 bottles FEN: Hyponatremia Replace electrolytes as clinically indicated Currently on NS @ 30 cc an hour. Access - DCd right femoral CVL/arterial line on 01/30, placed in ED 01/27. Prophylaxis - GI -Pepcid - DVT - SCD/heparin drip 35 minutes critical care time. There is no clinical improvement in neurological exam for several days. Prognosis remains extremely poor. Family wants neurology input again prior to deciding on withdrawal of life support Dulce Noe MD Feb 01, 2017 11:45
[2017-02-01] MEDS: FAMOTIDINE 20 MG TAB PO SCH ×2 (12:00→20:28)
--- NOTE | 2017-02-01 12:05 | HHI.HCPN ---
Reason for visit a. To assist with evaluation and management of symptoms including: Shortness of breath and debility. b. To assist medical decision maker(s) with: better understanding of current medical conditions; weighing benefits/burdens of medical treatment options; making medical treatment decisions. . Subjective/Interval History Mrs. Tillman is a 71-year-old female, known to palliative care services. This is patient's 7th of acute hospitalization this year, multiple prior hospitalizations and frequent ED visits during the past 12 months. Patient with a past medical history of COPD, A. fib on anticoagulation, hypertension, CHF, among other multiple chronic comorbidities. Patient presented from [facility] via EMS secondary to unwitnessed cardiac arrest. As per medical records, patient was found unresponsive, she had no pulse. CPR was started. EMS found patient asystolic, ACLS started requiring 3 rounds of epinephrine and bicarbonate. ROSC obtained. Patient presented to ED hypotensive but with a pulse. CT of the head negative for acute process. Chest x-ray revealing near complete opacification of the right hemithorax. Patient was admitted for further management. Palliative care has been consulted for further clarifications of goals of care given poor prognosis for survival. Repeat EEG this morning revealing moderate to severe encephalopathy likely secondary to anoxic brain injury. Unchanged neurological status, no gag or corneal reflex. Patient seen in ICU, she remains orally intubated on mechanical ventilation. Unresponsive to verbal or tactile stimuli. Stable hemodynamically. Currently on 35% FiO2, oxygen saturation in the high 90s. No new imaging and laboratory for review. Bedside conversation with patient's son Larry, [id number] October and additional family members. Medical update provided. Reviewed poor prognosis for a neurological recovery. Son requesting input from neurology after completion EEG today. Ongoing goals of care discussion, family considering comfort-directed care/withdrawal of life support if prognosis remains very poor. 14:30 to 14:52. Bedside conversation with patient's son Larry. Son and family with questions regarding patient's current clinical condition, prognosis and withdrawal of life support process. Discussed in detail risks, benefits and limitations of CPR given patient's current clinical condition to include severe anoxic brain injury. Family inquiring regarding tracheostomy. Discussed patient's prior medical history to include worsening physical deconditioning and multiple acute hospitalizations within the last 18 months. Discussed that patient's health at baseline was already precarious. Discussed that if we were to proceed with tracheostomy and given her severe anoxic brain injury and multiple comorbidities, she will likely succumb from acute complications. Discussed quality of life in patient's clinical condition. Patient's son asked palliative care to follow-up at the end of the day. 16:45 to 17:00. Called at bedside by patient's son. Discussed risks, benefits and limitations of CPR given patient's condition. Pending meeting with neurology, Dr. Burgos. Son was encouraged to discuss goals of care and code status with family. Case has been discussed with Dr. Noe and bedside RN Annabelle. Exhibits B & C signed and placed in chart. . Family/friend interactions See interval note. . Advance Directives Living Will: Never completed Health Care Surrogate: Copy in medical record Advance Directive Specifics Date completed: 03/16/2016. . Health Care Surrogate(s): HCS/son Larry Tillman. . Documented care wishes: No living will completed. . Significant change in goals: Full code. Continue aggressive management, pending input from neurology to discuss prognosis. Objective Vital Signs Date Time Temp Pulse Resp B/P Pulse Ox O2 Delivery O2 Flow Rate FiO2 02/01/17 11:19 99 35 02/01/17 08:12 99 35 02/01/17 06:00 69 02/01/17 04:22 99 35 02/01/17 04:00 35 02/01/17 04:00 69 02/01/17 04:00 98.7 69 11 147/70 97 02/01/17 02:00 82 02/01/17 00:22 97 35 02/01/17 00:00 83 02/01/17 00:00 98.2 82 16 150/71 97 02/01/17 00:00 35 01/31/17 22:00 81 01/31/17 20:00 82 01/31/17 20:00 98.0 92 11 140/72 97 01/31/17 20:00 35 01/31/17 19:15 98 35 01/31/17 18:00 90 01/31/17 16:00 97.9 80 27 144/65 98 01/31/17 16:00 80 01/31/17 16:00 40 01/31/17 15:02 98 35 01/31/17 14:00 92 01/31/17 12:00 97 01/31/17 12:00 40 01/31/17 12:00 97.9 97 16 129/64 97 Intake & Output 02/01/17 02/01/17 07:00 19:00 Intake Total 1795 ml Output Total 2450 ml Balance -655 ml IV Total 881 ml Tube Feeding 674 ml Other 240 ml Output Urine Total 2450 ml # Bowel Movements 0 Physical Exam CONSTITUTIONAL/GENERAL: This is an elderly frail female orally intubated on mechanical ventilation. Unresponsive. TUBES/LINES/DRAINS: ETT, OG, right femoral central line, Barnett catheter, PIV's. SKIN: No jaundice, rashes, or lesions. Ecchymoses on upper extremities. No wounds seen anteriorly. Skin temperature appropriate. Not diaphoretic. HEAD: Atraumatic. Normocephalic. EYES: No corneal reflex noted. No scleral icterus. Eyes open, erythematous. ENT: Unable to evaluate hearing secondary to clinical condition. Nose without bleeding or purulent drainage. Dry lips. NECK: Trachea midline. Supple. CARDIOVASCULAR: Bradycardic. Irregular rate and rhythm without murmurs, gallops , or rubs. Mottling of bilateral lower and upper extremities. RESPIRATORY/CHEST: Symmetric, unlabored. Coarse breath sounds on the left. Orally intubated on mechanical ventilation. GASTROINTESTINAL: Abdomen soft, round, obese. No guarding. Bowel sounds present. GENITOURINARY: Without palpable bladder distension. Barnett catheter in place. MUSCULOSKELETAL: Extremities with osteoarthritic changes to all 4 extremities. NEUROLOGICAL: Unresponsive to verbal or tactile stimuli. not following any commands. PSYCHIATRIC: Unable to assess secondary to clinical condition. . Diagnostic Tests Laboratory Laboratory Tests Test 01/30/17 01/31/17 03:40 06:23 White Blood Count 14.2 TH/MM3 6.7 TH/MM3 (4.0-11.0) (4.0-11.0) Red Blood Count 2.79 MIL/MM3 2.47 MIL/MM3 (4.00-5.30) (4.00-5.30) Hemoglobin 8.3 GM/DL 7.4 GM/DL (11.6-15.3) (11.6-15.3) Hematocrit 25.3 % 21.9 % (35.0-46.0) (35.0-46.0) Mean Corpuscular Volume 90.6 FL 88.8 FL (80.0-100.0) (80.0-100.0) Mean Corpuscular Hemoglobin 29.7 PG 29.9 PG (27.0-34.0) (27.0-34.0) Mean Corpuscular Hemoglobin 32.8 % 33.6 % Concent (32.0-36.0) (32.0-36.0) Red Cell Distribution Width 19.2 % 19.2 % (11.6-17.2) (11.6-17.2) Platelet Count 138 TH/MM3 102 TH/MM3 (150-450) (150-450) Mean Platelet Volume 7.7 FL 8.3 FL (7.0-11.0) (7.0-11.0) Neutrophils (%) (Auto) 93.4 % 91.7 % (16.0-70.0) (16.0-70.0) Lymphocytes (%) (Auto) 1.9 % 2.0 % (9.0-44.0) (9.0-44.0) Monocytes (%) (Auto) 4.5 % (0.0-8.0) 4.0 % (0.0-8.0) Eosinophils (%) (Auto) 0.1 % (0.0-4.0) 0.3 % (0.0-4.0) Basophils (%) (Auto) 0.1 % (0.0-2.0) 2.0 % (0.0-2.0) Neutrophils # (Auto) 13.2 TH/MM3 6.1 TH/MM3 (1.8-7.7) (1.8-7.7) Lymphocytes # (Auto) 0.3 TH/MM3 0.1 TH/MM3 (1.0-4.8) (1.0-4.8) Monocytes # (Auto) 0.6 TH/MM3 0.3 TH/MM3 (0-0.9) (0-0.9) Eosinophils # (Auto) 0.0 TH/MM3 0.0 TH/MM3 (0-0.4) (0-0.4) Basophils # (Auto) 0.0 TH/MM3 0.1 TH/MM3 (0-0.2) (0-0.2) CBC Comment AUTO DIFF AUTO DIFF Differential Total Cells 100 Counted Neutrophils % (Manual) 72 % (16-70) Band Neutrophils % 19 % (0-6) Lymphocytes % 4 % (9-44) Monocytes % 4 % (0-8) Neutrophils # (Manual) 13.1 TH/MM3 (1.8-7.7) Metamyelocytes 1 % (0-1) Differential Comment FINAL DIFF AUTO DIFF MANUAL CONFIRMED Platelet Estimate LOW (NORMAL) LOW (NORMAL) Platelet Morphology Comment NORMAL NORMAL (NORMAL) (NORMAL) Tear Drop Cells 1+ (NORMAL) Ovalocytes 1+ (NORMAL) 1+ (NORMAL) Acanthocytes 1+ (NORMAL) 1+ (NORMAL) Keratocytes OCC (NORMAL) OCC (NORMAL) Sodium Level 132 MEQ/L 134 MEQ/L (136-145) (136-145) Potassium Level 4.1 MEQ/L 3.6 MEQ/L (3.5-5.1) (3.5-5.1) Chloride Level 99 MEQ/L 100 MEQ/L (98-107) (98-107) Carbon Dioxide Level 22.8 MEQ/L 22.4 MEQ/L (21.0-32.0) (21.0-32.0) Anion Gap 10 MEQ/L (5-15) 12 MEQ/L (5-15) Blood Urea Nitrogen 64 MG/DL (7-18) 64 MG/DL (7-18) Creatinine 3.44 MG/DL 2.87 MG/DL (0.50-1.00) (0.50-1.00) Estimat Glomerular Filtration 13 ML/MIN (>89) 16 ML/MIN (>89) Rate Random Glucose 159 MG/DL 166 MG/DL (74-106) (74-106) Lactic Acid Level 1.3 mmol/L (0.4-2.0) Calcium Level 7.8 MG/DL 8.0 MG/DL (8.5-10.1) (8.5-10.1) Phosphorus Level 3.3 MG/DL (2.5-4.9) Magnesium Level 2.2 MG/DL (1.5-2.5) Total Bilirubin 0.6 MG/DL 0.5 MG/DL (0.2-1.0) (0.2-1.0) Aspartate Amino Transf 167 U/L (15-37) 84 U/L (15-37) (AST/SGOT) Alanine Aminotransferase 98 U/L (10-53) 73 U/L (10-53) (ALT/SGPT) Alkaline Phosphatase 72 U/L (45-117) 57 U/L (45-117) Total Creatine Kinase 49 U/L (26-192) Troponin I 0.11 NG/ML (0.02-0.05) Total Protein 6.0 GM/DL 5.6 GM/DL (6.4-8.2) (6.4-8.2) Albumin 2.3 GM/DL 1.8 GM/DL (3.4-5.0) (3.4-5.0) Lipase 338 U/L (73-393) Leighton Cells 1+ (NORMAL) Result Diagram: 01/31/1762201/31/17622 Microbiology Microbiology Date/Time Procedure Status Source Growth 01/30/17 08:40 Aerobic Blood Culture Received Blood Peripheral Pending 01/30/17 08:40 Anaerobic Blood Culture Received Blood Peripheral Pending 01/30/17 18:20 Aerobic Blood Culture - Preliminary Resulted Blood Peripheral Staphylococcus Aureus 01/30/17 18:20 Anaerobic Blood Culture - Preliminary Resulted Blood Peripheral NO GROWTH IN 2 DAYS 01/30/17 18:30 Aerobic Blood Culture - Preliminary Resulted Blood Peripheral NO GROWTH IN 2 DAYS 01/30/17 18:30 Anaerobic Blood Culture - Preliminary Resulted Blood Peripheral NO GROWTH IN 2 DAYS Procedures * 01/26/17 -intubation . Assessment and Plan Disease Oriented Problem List: (1) Cardiac arrest (2) Respiratory failure (3) Atrial fibrillation Symptom Scale: (1) Shortness of breath 0-10 Scale: Unable to quantify Comment: Remains intubated on mechanical ventilation. (2) Debility 0-10 Scale: Unable to quantify Comment: Progressive. Worsen since October 2016. Pertinent Non-Medical Issues Psychosocial: . Has one child. Originally from the [facility]. Spiritual: Faith adeline. Legal: No living will completed. Designation of healthcare surrogate in file. Ethical issues impacting care: No ethical issues have been identified. . Important Contacts HCS/son Larry Tillman . Family friend Fior Giordano . . Prognosis Mrs. Tillman is a 71-year-old female with multiple chronic issues and multiple hospitalizations within the past 18 months. Patient with progressive decline, resident of nursing home facility since October 2016. Currently status post cardiac arrest, remains on life support. Likely anoxic brain injury. Prognosis is very poor for survival given acute events, multiple chronic comorbidities, multiple recent acute hospitalizations, advanced age and profound physical deconditioning. . Code Status: Full Code Plan * CODE STATUS: Full code. Discussed with son risk, benefits and limitations of CPR given patient's current clinical condition. Son electing for patient to remain full code at this time. * HEALTHCARE DECISION-MAKING: Patient unable to participating medical decision- making secondary to clinical condition, unresponsive. Designation of healthcare surrogate in file, son Larry Tillman listed as HCS. * GOALS OF CARE: Son electing to continue with aggressive management to include FULL code with the understanding that patient's prognosis is very poor in the setting of multisystem organ failure and anoxic brain injury. Family considering transition to comfort-care/withdrawal life support after discussing prognosis with neurology today. * 02/01/17 -Bedside conversation with patient's son Larry, [id number] October and additional family members. Medical update provided. Reviewed poor prognosis for a neurological recovery. Son requesting input from neurology after completion EEG today. Ongoing goals of care discussion, family considering comfort-directed care/withdrawal of life support if prognosis remains very poor. * SYMPTOMS: = Shortness of breath, secondary to acute respiratory failure, COPD. Remains intubated on mechanical ventilation. FiO2 35%. = Debility, progressive and worsened during the past 3 months. * Exhibits B and C signed, placed chart. * Case has been discussed with Dr. Noe and bedside RN Annabelle. * Palliative care contact information has been provided to patient's family. * Palliative care will continue to follow-up for further clarifications of goals of care as patient's clinical course continues to evolve. . Time Spent Total Floor Time (mins): 72 (Total time to include review of medical records, physical exam, please separate bedside meetings with patient's son and family from 10:15 to 10:35, 14:30 to 14:52 and 16:45 to 17:00, case discussion with Dr. Noe and bedside RN.) >50% Counseling/Coord of Care: Yes Attestation To help prompt me to consider important information that might be impacting today's encounter and assessment, information from prior notes written by myself or my colleagues may have been "brought forward" into today's note. My signature on this note, however, is an attestation that I personally performed the exam, history, and/or decision-making noted today, and, unless otherwise indicated, the interactions with patient, family, and staff as well as the review of records all occurred today. I also attest that the listed assessment and stated plan reflect my best clinical judgment today based on the combination of historical information, prior notes, and today's exam/ interactions. When time spent is documented, it refers only to time spent today by the signer, or if indicated, combined time spent today by collaborating physician/nurse practitioner. Yolis Guerrier Feb 01, 2017 12:05
--- NOTE | 2017-02-01 12:58 | HHI.PR ---
Subjective Remarks Comatose on the vent . EEG shows severe encephalopathy. FIO2 35 %. Poor prognosis per Neurology. Objective Vital Signs Date Time Temp Pulse Resp B/P Pulse Ox O2 Delivery O2 Flow Rate FiO2 02/01/17 11:19 99 35 02/01/17 08:12 99 35 02/01/17 06:00 69 02/01/17 04:22 99 35 02/01/17 04:00 35 02/01/17 04:00 69 02/01/17 04:00 98.7 69 11 147/70 97 02/01/17 02:00 82 02/01/17 00:22 97 35 02/01/17 00:00 83 02/01/17 00:00 98.2 82 16 150/71 97 02/01/17 00:00 35 01/31/17 22:00 81 01/31/17 20:00 82 01/31/17 20:00 98.0 92 11 140/72 97 01/31/17 20:00 35 01/31/17 19:15 98 35 01/31/17 18:00 90 01/31/17 16:00 97.9 80 27 144/65 98 01/31/17 16:00 80 01/31/17 16:00 40 01/31/17 15:02 98 35 01/31/17 14:00 92 I/O 01/31/17 01/31/17 01/31/17 02/01/17 02/01/17 02/01/17 06:59 14:59 22:59 06:59 14:59 22:59 Intake Total 582 ml 1200 ml 817 ml 978 ml Output Total 750 ml 850 ml 900 ml 1550 ml Balance -168 ml 350 ml -83 ml -572 ml IV Total 502 ml 1200 ml 397 ml 484 ml Tube Feeding 80 ml 0 ml 300 ml 374 ml Other 120 ml 120 ml Output Urine Total 750 ml 850 ml 900 ml 1550 ml # Bowel Movements 0 0 0 Result Diagram: 01/31/1762201/31/17622 Objective Remarks GENERAL: This is a moderately obese elderly lady who is unresponsive. Her eyes are open . HEENT: Head normocephalic. Pupils are irregular reactive. Throat has secretions. ET tube in place. Nasal mucosa is clear NECK: Supple with mild venous distension. Trachea midline. CHEST: Decreased breath sounds over right lung sanford and wheezes are scattered over the left chest . CARDIAC: Heart sounds are regular S1-S2. No murmur. No S3. ABDOMEN: Soft and nontender. No organomegaly. Bowel sounds are active. EXTREMITIES: Edema 1+ with decreased pulses. NEUROLOGIC: Reflexes are not elicited. The patient does not withdraw to stimuli. Cranial nerves not tested. SKIN: Dry and cool. Assessment and Plan Assessment and Plan IMPRESSION 1. Status post cardiopulmonary arrest 2. Acute respiratory failure with hypoxemia and hypercapnia. 3. History of carcinoma of the lung status post radiation and chemotherapy 4. Atelectasis right lung with radiation fibrosis 5. History of depression and anxiety 6. Atrial fibrillation and history of pulmonary emboli. Plan : 1. Leave on vent support at Rate 20, PEEP +5 and FIO2 35 % 2. Tube feeds at 50 CC 3. Neuro Evaluation/EEG result 4. Continue nebs qid. 5. CBC,BMP in am. 6. Poor prognosis .Family to decide on Code status Wandy Preciado MD Feb 01, 2017 12:58
[2017-02-01 14:03] LABS: ALT (GPT) 61 U/L (10-53); ANION GAP 11 MEQ/L (5-15); AST (GOT) 59 U/L (15-37); BICARBONATE 24.5 MEQ/L (21.0-32.0); BLOOD UREA NITROGEN 59 MG/DL (7-18); CHLORIDE 100 MEQ/L (98-107); GLOMERULAR FILTRATION RATE 25 ML/MIN (>89); POTASSIUM 3.5 MEQ/L (3.5-5.1); SODIUM (NA) 135 MEQ/L (136-145)
[2017-02-01 14:05] LABS: ALKALINE PHOSPHATASE 59 U/L (45-117); TOTAL BILIRUBIN ADULT 0.4 MG/DL (0.2-1.0)
--- NOTE | 2017-02-01 15:40 | PD.CARD.PN ---
Subjective Subjective Remarks Intubated, comatose Objective Medications Current Medications Medications (Trade) Dose Ordered Sig/Lorie Route Start Time Stop Time Status Last Admin (Brethine Inj) 1 mg UNSCH PRN SQ 01/26/17 22:45 (Ecotrin Ec) 81 mg DAILY PO 01/27/17 09:00 02/01/17 08:56 (Synthroid) 50 mcg DAILY@0600 PO 01/27/17 06:00 02/01/17 05:31 (Lopressor) 25 mg Q8HR PO 01/27/17 06:00 02/01/17 15:19 Amylase/Lipase/ Protease 1 cap 1 cap TID PO 01/27/17 09:00 02/01/17 12:02 (NS 1000 ml Inj) 1,000 ml @ 30 mls/hr Q24H IV 01/27/17 00:11 01/31/17 18:47 (NS Flush) 2 ml UNSCH PRN .XX 01/27/17 00:15 (NS Flush) 2 ml BID .XX 01/27/17 09:00 02/01/17 12:01 (Zofran Inj) 4 mg Q6H PRN IV 01/27/17 00:15 Miscellaneous Information 1 Q361D XX 01/27/17 00:15 (Chlorhexidine 2% Cloth) Taper DAILY@04 TOP 01/27/17 04:00 01/23/18 03:59 01/30/17 06:34 (Chlorhexidine 2% Cloth) 3 pack UNSCH PRN TOP 01/27/17 00:15 (Gwen-Colace) 1 tab BID PO 01/27/17 09:00 02/01/17 08:56 (Milk Of Magnesia Liq) 30 ml Q12H PRN PO 01/27/17 00:15 (Senokot) 17.2 mg Q12H PRN PO 01/27/17 00:15 (Dulcolax Supp) 10 mg DAILY PRN RECTAL 01/27/17 00:15 (Lactulose Liq) 30 ml DAILY PRN PO 01/27/17 00:15 (Ofirmev Inj) 1,000 mg Q8HR PRN IV 01/27/17 11:45 01/29/17 17:32 (Peridex 0.12% Liq) 15 ml BID@08,20 MT 01/27/17 20:00 02/01/17 08:00 (Apresoline Inj) 10 mg Q1HR PRN IV PUSH 01/27/17 12:30 Nitroglycerin 2 inch 2 inch Q6HR PRN TOPICAL 01/27/17 12:30 (Flagyl 500 Mg Inj) 100 ml @ 100 mls/hr Q6H IV 01/27/17 13:00 02/03/17 12:59 02/01/17 12:02 (D50w (Vial) Inj) 50 ml UNSCH PRN IV 01/27/17 14:30 (Glucagon Inj) 1 mg UNSCH PRN OTHER 01/27/17 14:30 (NovoLIN R SUPPLEMENTAL SCALE) 1 Q6HR SQ 01/27/17 18:00 02/01/17 12:50 (SoluMEDROL INJ) 40 mg BID IV 01/27/17 21:00 02/01/17 08:57 (Lacrilube Opht Oint) 1 applic Q12HR EACH EYE 01/29/17 09:00 02/01/17 12:01 Famotidine 10 mg 10 mg Q12HR PO 01/29/17 09:00 02/01/17 12:00 Aztreonam 1000 mg/ Sodium Chloride 100 ml @ 200 mls/hr Q8H IV 01/29/17 14:00 02/03/17 13:59 02/01/17 15:19 (Zyvox 600 Mg Premix) 300 ml @ 300 mls/hr Q12H IV 01/30/17 09:00 02/01/17 08:58 Vital Signs / I&O Vital Signs Date Time Temp Pulse Resp B/P Pulse Ox O2 Delivery O2 Flow Rate FiO2 02/01/17 12:00 35 02/01/17 11:19 99 35 02/01/17 08:12 99 35 02/01/17 08:00 35 02/01/17 06:00 69 02/01/17 04:22 99 35 02/01/17 04:00 35 02/01/17 04:00 69 02/01/17 04:00 98.7 69 11 147/70 97 02/01/17 02:00 82 02/01/17 00:22 97 35 02/01/17 00:00 83 02/01/17 00:00 98.2 82 16 150/71 97 02/01/17 00:00 35 01/31/17 22:00 81 01/31/17 20:00 82 01/31/17 20:00 98.0 92 11 140/72 97 01/31/17 20:00 35 01/31/17 19:15 98 35 01/31/17 18:00 90 01/31/17 16:00 97.9 80 27 144/65 98 01/31/17 16:00 80 01/31/17 16:00 40 I/O 01/31/17 01/31/17 01/31/17 02/01/17 02/01/17 02/01/17 07:00 15:00 23:00 07:00 15:00 23:00 Intake Total 582 ml 1200 ml 817 ml 978 ml 1014 ml Output Total 750 ml 850 ml 900 ml 1550 ml 800 ml Balance -168 ml 350 ml -83 ml -572 ml 214 ml IV Total 502 ml 1200 ml 397 ml 484 ml 644 ml Tube Feeding 80 ml 0 ml 300 ml 374 ml 370 ml Other 120 ml 120 ml Output Urine Total 750 ml 850 ml 900 ml 1550 ml 800 ml # Bowel Movements 0 0 0 0 Physical Exam GENERAL: Intubated, on the vent SKIN: Warm and dry. HEAD: Normocephalic. EYES: No scleral icterus. No injection or drainage. NECK: Supple, trachea midline. No JVD or lymphadenopathy. CARDIOVASCULAR: Regular rate and rhythm without murmurs, gallops, or rubs. RESPIRATORY: Breath sounds equal bilaterally. No accessory muscle use. GASTROINTESTINAL: Abdomen soft, non-tender, nondistended. MUSCULOSKELETAL: No cyanosis, or edema. Laboratory Laboratory Tests Test 02/01/17 12:48 Sodium Level 135 MEQ/L Potassium Level 3.5 MEQ/L Chloride Level 100 MEQ/L Carbon Dioxide Level 24.5 MEQ/L Anion Gap 11 MEQ/L Blood Urea Nitrogen 59 MG/DL Creatinine 1.96 MG/DL Estimat Glomerular Filtration 25 ML/MIN Rate Random Glucose 214 MG/DL Calcium Level 7.9 MG/DL Total Bilirubin 0.4 MG/DL Aspartate Amino Transf 59 U/L (AST/SGOT) Alanine Aminotransferase 61 U/L (ALT/SGPT) Alkaline Phosphatase 59 U/L Total Protein 5.5 GM/DL Albumin 1.8 GM/DL Imaging Last Impressions Chest X-Ray 01/31/17 0600 Signed Impressions: Service Date/Time: Tuesday, January 31, 2017 04:46 - CONCLUSION: No significant interval change. Arie Olvera MD Brain MRI 01/30/17 0000 Signed Impressions: Service Date/Time: Monday, January 30, 2017 14:49 - CONCLUSION: Chronic atrophic and small vessel ischemic changes without any evidence for acute hemorrhage or mass effect and chronic sinusitis. Lian Wilburn MD ADDENDUM: Upon reading reviewing the MR brain. There are subtle areas of high flair abnormality in the cerebral cortex most notably within the frontal parietal lobes along the high convexities with restricted diffusion consistent with anoxic brain injury. Quang Clarke MD Head CT 01/26/176 Signed Impressions: Service Date/Time: Thursday, January 26, 2017 23:36 - CONCLUSION: 1. Moderate amount of fluid in the sinuses involving the maxillary, ethmoid, and sphenoid sinuses. High density fluid is seen at the dependent portion of the left maxillary sinus. This may represent hemorrhagic material or proteinaceous material. Polyp or retention cyst is again seen in the left maxillary sinus. The fluid is new compared to the prior study of 01/07/2017. 2. No acute intracranial findings. Larry Curiel MD Assessment and Plan Problem List: (1) Cardiac arrest (2) Respiratory failure (3) Renal failure (4) Anoxic encephalopathy Assessment and Plan No improvement of neurologic status. Severe anoxic encephalopathy. EEG in progress. Prognosis is very poor. Palliative care consulted. Family considering withdrawal of care based on the EEG result. Shiv Borrego MD Feb 01, 2017 15:40
--- NOTE | 2017-02-01 17:49 | HHI.PR ---
Review/Management Diagnosis 1. Hypoxic/anoxic brain injury status post cardiopulmonary arrest. 2. Acute respiratory failure. 3. History of atrial fibrillation with pulmonary emboli. 4. History of lung cancer. 5. Diabetes mellitus. Plan - I was asked to hold a second family meeting in regards to the current neurologic status, and the result of the follow up EEG interpretation. - A meeting was with family members [son, daughter in law], in presence of RN. I re-explained to them the current clinical neurologic status and the interpretation of the follow up EEG findings. - The questions and concerns of the family was addressed and answered to the best of my knowledge - The family asked about the ventilator withdrawal protocol, I will leave this part of care to the experts, namely palliative care, ICU attending. - In light of the clinical neurologic evaluation and the results of the neurologic investigations, the current status of the patient carries a very poor prognosis for a meaningful neurologic recovery. - Please call for questions. Diagnosis/Plan: Subjective Subjective Comments No change in neurologic status Follow up EEG done today, revealed 'a low voltage and diffusely slow slow EEG recording that may indicate moderate to severe encephalopathy that may be secondary to anoxic brain injury. No ictal activity is noted. The absence of electrographic seizures or epileptiform discharges does not rule out the diagnosis of epilepsy. Clinical correlation is recommended'. Active Medications Current Medications Medications (Trade) Dose Ordered Sig/Lorie Route Start Time Stop Time Status Last Admin (Brethine Inj) 1 mg UNSCH PRN SQ 01/26/17 22:45 (Ecotrin Ec) 81 mg DAILY PO 01/27/17 09:00 02/01/17 08:56 (Synthroid) 50 mcg DAILY@0600 PO 01/27/17 06:00 02/01/17 05:31 (Lopressor) 25 mg Q8HR PO 01/27/17 06:00 02/01/17 15:19 Amylase/Lipase/ Protease 1 cap 1 cap TID PO 01/27/17 09:00 02/01/17 12:02 (NS 1000 ml Inj) 1,000 ml @ 30 mls/hr Q24H IV 01/27/17 00:11 01/31/17 18:47 (NS Flush) 2 ml UNSCH PRN .XX 01/27/17 00:15 (NS Flush) 2 ml BID .XX 01/27/17 09:00 02/01/17 12:01 (Zofran Inj) 4 mg Q6H PRN IV 01/27/17 00:15 Miscellaneous Information 1 Q361D XX 01/27/17 00:15 (Chlorhexidine 2% Cloth) Taper DAILY@04 TOP 01/27/17 04:00 01/23/18 03:59 01/30/17 06:34 (Chlorhexidine 2% Cloth) 3 pack UNSCH PRN TOP 01/27/17 00:15 (Gwen-Colace) 1 tab BID PO 01/27/17 09:00 02/01/17 08:56 (Milk Of Magnesia Liq) 30 ml Q12H PRN PO 01/27/17 00:15 (Senokot) 17.2 mg Q12H PRN PO 01/27/17 00:15 (Dulcolax Supp) 10 mg DAILY PRN RECTAL 01/27/17 00:15 (Lactulose Liq) 30 ml DAILY PRN PO 01/27/17 00:15 (Ofirmev Inj) 1,000 mg Q8HR PRN IV 01/27/17 11:45 01/29/17 17:32 (Peridex 0.12% Liq) 15 ml BID@08,20 MT 01/27/17 20:00 02/01/17 08:00 (Apresoline Inj) 10 mg Q1HR PRN IV PUSH 01/27/17 12:30 Nitroglycerin 2 inch 2 inch Q6HR PRN TOPICAL 01/27/17 12:30 (Flagyl 500 Mg Inj) 100 ml @ 100 mls/hr Q6H IV 01/27/17 13:00 02/03/17 12:59 02/01/17 12:02 (D50w (Vial) Inj) 50 ml UNSCH PRN IV 01/27/17 14:30 (Glucagon Inj) 1 mg UNSCH PRN OTHER 01/27/17 14:30 (NovoLIN R SUPPLEMENTAL SCALE) 1 Q6HR SQ 01/27/17 18:00 02/01/17 12:50 (SoluMEDROL INJ) 40 mg BID IV 01/27/17 21:00 02/01/17 08:57 (Lacrilube Opht Oint) 1 applic Q12HR EACH EYE 01/29/17 09:00 02/01/17 12:01 Famotidine 10 mg 10 mg Q12HR PO 01/29/17 09:00 02/01/17 12:00 Aztreonam 1000 mg/ Sodium Chloride 100 ml @ 200 mls/hr Q8H IV 01/29/17 14:00 02/03/17 13:59 02/01/17 15:19 (Zyvox 600 Mg Premix) 300 ml @ 300 mls/hr Q12H IV 01/30/17 09:00 02/01/17 08:58 Allergies Allergies Coded Allergies Adhesives (Verified Allergy, Severe, RASK, 01/26/17) Calcium Channel Blockers (Verified Allergy, Severe, DIFFICULTY BREATHING, 01/26) Entex LA (Verified Allergy, Severe, Anaphylaxis, 01/26/17) Marcaine (Verified Allergy, Severe, DIFFICULTY BREATHING, 01/26/17) Minocin (Verified Allergy, Severe, DIFFICULTY BREATHING, 01/26/17) Nonsteroidal Anti-Inflammatory Agts (Verified Allergy, Severe, DIFFICULTY BREATHING, 01/26/17) PEANUTS (Verified Allergy, Severe, lips swelling, 01/26/17) Penicillin (Verified Allergy, Severe, DIFFICULTY BREATHING, 01/26/17) Prilosec (Verified Allergy, Severe, DIFFICULTY BREATHING, 01/26/17) Promethazine (Verified Allergy, Severe, DIFFICULTY BREATHING, 01/26/17) Sulfa (Verified Allergy, Severe, DIFFICULTY BREATHING, 01/26/17) Prednisone (Verified Allergy, Intermediate, rash and lips swell, 01/26/17) Zyrtec (Verified Allergy, Intermediate, rash, 01/26/17) Vancomycin (Verified Allergy, Mild, Flushing, 01/26/17) Zyprexa (Verified Adverse Reaction, Severe, Severe vomiting., 01/26/17) Fluticasone (Verified Adverse Reaction, Intermediate, Rawness of the skin around the nose. Inhaled steroids do , 01/26/17) Omeprazole (Verified Adverse Reaction, Intermediate, [place] funny, 01/26/17) Zithromax (Verified Adverse Reaction, Intermediate, Says it made her jittery and it was harder to breathe. , 01/26/17) *MDRO Multi-Drug Resistant Organism (Unverified Adverse Reaction, Unknown, ESBL, 01/26/17) Uncoded Allergies Racemic Epinephrine Inhaled ( Allergy, Intermediate, Flushing, Mouth Tingling , 08/26/12) Klonapen ( Adverse Reaction, Severe, Caused amnesia and a fall. , 07/10/13) Review of Systems All other ROS: ROS reviewed as documented in chart Exam I&O / VS 01/31/17 01/31/17 02/01/17 15:00 23:00 07:00 Intake Total 1200 ml 817 ml 978 ml Output Total 850 ml 900 ml 1550 ml Balance 350 ml -83 ml -572 ml IV Total 1200 ml 397 ml 484 ml Tube Feeding 0 ml 300 ml 374 ml Other 120 ml 120 ml Output Urine Total 850 ml 900 ml 1550 ml # Bowel Movements 0 0 0 Vital Signs Date Time Temp Pulse Resp B/P Pulse Ox O2 Delivery O2 Flow Rate FiO2 02/01/17 16:00 99.0 72 18 155/70 100 02/01/17 16:00 35 02/01/17 16:00 72 02/01/17 15:55 100 35 02/01/17 15:00 71 02/01/17 14:00 71 02/01/17 13:00 71 02/01/17 12:00 70 02/01/17 12:00 35 02/01/17 12:00 98.4 70 18 158/74 98 02/01/17 11:19 99 35 02/01/17 11:00 69 02/01/17 10:00 70 02/01/17 08:12 99 35 02/01/17 08:00 98.4 69 19 142/67 98 02/01/17 08:00 35 02/01/17 08:00 69 02/01/17 06:00 69 02/01/17 04:22 99 35 02/01/17 04:00 35 02/01/17 04:00 69 02/01/17 04:00 98.7 69 11 147/70 97 02/01/17 02:00 82 02/01/17 00:22 97 35 02/01/17 00:00 83 02/01/17 00:00 98.2 82 16 150/71 97 02/01/17 00:00 35 01/31/17 22:00 81 01/31/17 20:00 82 01/31/17 20:00 98.0 92 11 140/72 97 01/31/17 20:00 35 01/31/17 19:15 98 35 01/31/17 18:00 90 Exam Comments GENERAL: Overweight, intubated , off sedation HEENT: Atraumatic, normocephalic. NECK: Supple. No carotid bruits. Trachea in the midline. CARDIOVASCULAR: Regular rate and rhythm. RESPIRATORY: Clear breath sounds. MUSCULOSKELETAL: No cyanosis or edema. NEUROLOGIC: Mechanically vented. No spontaneous eye opening or movements. No response to verbal or deep painful stimulation. Pupils left 1-2 mm b/l non reacting to light. No gaze deviation. Absent corneal reflex bilaterally. Absent gag and cough reflex. Absent Oculo-caphalic eye movement [Doll's eyes]. Plantar reflexes are b/l mute. Objective Radiology Results Last 72 hours Impressions Chest X-Ray 01/31/17 0600 Signed Impressions: Service Date/Time: Tuesday, January 31, 2017 04:46 - CONCLUSION: No significant interval change. Arie Olvera MD Brain MRI 01/30/17 0000 Signed Impressions: Service Date/Time: Monday, January 30, 2017 14:49 - CONCLUSION: Chronic atrophic and small vessel ischemic changes without any evidence for acute hemorrhage or mass effect and chronic sinusitis. Lian Wilburn MD ADDENDUM: Upon reading reviewing the MR brain. There are subtle areas of high flair abnormality in the cerebral cortex most notably within the frontal parietal lobes along the high convexities with restricted diffusion consistent with anoxic brain injury. Quang Clarke MD Micro and Labs Laboratory Tests Test 02/01/17 12:48 Sodium Level 135 Potassium Level 3.5 Chloride Level 100 Carbon Dioxide Level 24.5 Anion Gap 11 Blood Urea Nitrogen 59 Creatinine 1.96 Estimat Glomerular Filtration 25 Rate Random Glucose 214 Calcium Level 7.9 Total Bilirubin 0.4 Aspartate Amino Transf 59 (AST/SGOT) Alanine Aminotransferase 61 (ALT/SGPT) Alkaline Phosphatase 59 Total Protein 5.5 Albumin 1.8 Date/Time Procedure Status Source Growth 01/30/17 18:30 Aerobic Blood Culture - Preliminary Resulted Blood Peripheral NO GROWTH IN 2 DAYS 01/30/17 18:30 Anaerobic Blood Culture - Preliminary Resulted Blood Peripheral NO GROWTH IN 2 DAYS 01/30/17 08:40 Aerobic Blood Culture Received Blood Peripheral Pending 01/30/17 08:40 Anaerobic Blood Culture Received Blood Peripheral Pending Pat Hamilton MD Feb 01, 2017 17:49
[2017-02-01] MEDS: SODIUM CHLOR 0.9% 1000 ML INJ 1,000 ML IV SCH (18:47)
[2017-02-02] VITALS (16 sets, daily range): BP systolic 123–143; BP diastolic 78–87; PULSE 109–185; RESP 14–22; TEMP 98.6–99.7; O2SAT 47–100
[2017-02-02] MEDS: RESP: ALBUTEROL 2.5 MG/IPRATROPIUM 0.5 MG NEB (SCH) INH ×2 (03:24→07:22)
[2017-02-02] MEDS: CHLORHEXIDINE GLUCONATE 2 % 1 PACK (2 CLOTHS) TOP SCH (04:00)
[2017-02-02] MEDS: AZTREONAM INJ 1,000 MG in SODIUM CHLORIDE 0.9% INJ 100 ML IV SCH (05:40)
[2017-02-02] MEDS: METOPROLOL TARTRATE 25 MG TAB PO SCH (05:40)
[2017-02-02] MEDS: LEVOTHYROXINE SODIUM 50 MCG TAB PO SCH (05:40)
[2017-02-02] MEDS: INSULIN NovoLIN REGULAR SUPPLEMENTAL SCALE SQ SCH (05:47)
[2017-02-02] MEDS: metroNIDAZOLE 500 MG INJ 100 ML IV SCH (05:48)
[2017-02-02] MEDS: SODIUM CHLORIDE 0.9% FLUSH 10 ML FLUSH SCH ×2 (09:00→21:00)
[2017-02-02] MEDS: ASPIRIN EC 81 MG TABEC PO SCH (10:12)
[2017-02-02] MEDS: DOCUSATE SODIUM 50 MG/SENNA 8.6 MG TAB PO SCH (10:12)
[2017-02-02] MEDS: FAMOTIDINE 20 MG TAB PO SCH (10:12)
[2017-02-02] MEDS: methylPREDNISolone SOD SUCC 40 MG/1 ML VIAL IV SCH (10:13)
--- NOTE | 2017-02-02 11:12 | HHI.HCPN ---
Reason for visit a. To assist with evaluation and management of symptoms including: Shortness of breath and debility. b. To assist medical decision maker(s) with: better understanding of current medical conditions; weighing benefits/burdens of medical treatment options; making medical treatment decisions. . Subjective/Interval History Mrs. Tillman is a 71-year-old female, known to palliative care services. This is patient's 7th of acute hospitalization this year, multiple prior hospitalizations and frequent ED visits during the past 12 months. Patient with a past medical history of COPD, A. fib on anticoagulation, hypertension, CHF, among other multiple chronic comorbidities. Patient presented from [facility] via EMS secondary to unwitnessed cardiac arrest. As per medical records, patient was found unresponsive, she had no pulse. CPR was started. EMS found patient asystolic, ACLS started requiring 3 rounds of epinephrine and bicarbonate. ROSC obtained. Patient presented to ED hypotensive but with a pulse. CT of the head negative for acute process. Chest x-ray revealing near complete opacification of the right hemithorax. Patient was admitted for further management. Palliative care has been consulted for further clarifications of goals of care given poor prognosis for survival. Repeat EEG yesterday revealed moderate to severe encephalopathy likely secondary to anoxic brain injury. Unchanged neurological status, no gag or corneal reflex. Patient seen in ICU, she remains orally intubated on mechanical ventilation. no purposeful movement noted. Tachycardic with HR in the low 110' s. Currently on 35% FiO2, oxygen saturation in the high 90s. No new imaging and laboratory for review. Bedside conversation with patient's son Larry, [id number] October and additional family members. Medical update provided. Reviewed poor prognosis for a neurological recovery. Family had an opportunity to talk with Dr. Hamilton yesterday to discuss prognosis. Family electing to transition patient to comfort -directed care/withdraw life support and to allow natural to occur. Exhibits B & C signed. Ongoing emotional support and active listening provided. Anticipatory guidance provided. Case has been discussed with Dr. Noe and bedside RN Juliet. . Family/friend interactions See interval note. . Advance Directives Living Will: Never completed Health Care Surrogate: Copy in medical record Advance Directive Specifics Date completed: 03/16/2016. . Health Care Surrogate(s): HCS/son Larry Tillman. . Documented care wishes: No living will completed. . Significant change in goals: No code/DNR/DNI. Family electing to transition patient to comfort-directed care/ withdrawal of life support given poor prognosis for neurological recovery. . Objective Vital Signs Date Time Temp Pulse Resp B/P Pulse Ox O2 Delivery O2 Flow Rate FiO2 02/02/17 07:23 100 35 02/02/17 06:00 111 02/02/17 04:26 100 35 02/02/17 04:00 35 02/02/17 04:00 109 02/02/17 04:00 98.6 109 18 123/79 99 02/02/17 02:00 110 02/02/17 01:02 99 35 02/02/17 00:00 110 02/02/17 00:00 35 02/02/17 00:00 98.8 110 20 143/87 100 02/01/17 22:00 87 02/01/17 21:58 100 35 02/01/17 20:00 35 02/01/17 20:00 71 02/01/17 20:00 98.6 71 18 149/75 100 02/01/17 18:00 71 02/01/17 16:00 99.0 72 18 155/70 100 02/01/17 16:00 35 02/01/17 16:00 72 02/01/17 15:55 100 35 02/01/17 15:00 71 02/01/17 14:00 71 02/01/17 13:00 71 02/01/17 12:00 70 02/01/17 12:00 35 02/01/17 12:00 98.4 70 18 158/74 98 02/01/17 11:19 99 35 Intake & Output 02/02/17 02/02/17 07:00 19:00 Intake Total 1744 ml Output Total 1050 ml Balance 694 ml IV Total 946 ml Tube Feeding 618 ml Other 180 ml Output Urine Total 1050 ml # Bowel Movements 0 Physical Exam CONSTITUTIONAL/GENERAL: This is an elderly frail female orally intubated on mechanical ventilation. Unresponsive. TUBES/LINES/DRAINS: ETT, OG, right femoral central line, Barnett catheter, PIV's. SKIN: No jaundice, rashes, or lesions. Ecchymoses on upper extremities. No wounds seen anteriorly. Skin temperature appropriate. Not diaphoretic. HEAD: Atraumatic. Normocephalic. EYES: No corneal reflex noted. No scleral icterus. Eyes open, erythematous. ENT: Unable to evaluate hearing secondary to clinical condition. Nose without bleeding or purulent drainage. Dry lips. NECK: Trachea midline. Supple. CARDIOVASCULAR: tachycardic with HR in the low 110's. Irregular rate and rhythm without murmurs, gallops, or rubs. Mottling of bilateral lower and upper extremities. RESPIRATORY/CHEST: Symmetric, unlabored. Coarse breath sounds on the left. Orally intubated on mechanical ventilation. GASTROINTESTINAL: Abdomen soft, round, obese. No guarding. Bowel sounds present. GENITOURINARY: Without palpable bladder distension. Barnett catheter in place. MUSCULOSKELETAL: Extremities with osteoarthritic changes to all 4 extremities. NEUROLOGICAL: Unresponsive to verbal or tactile stimuli. not following any commands. PSYCHIATRIC: Unable to assess secondary to clinical condition. . Diagnostic Tests Laboratory Laboratory Tests Test 01/31/17 02/01/17 06:23 12:48 White Blood Count 6.7 TH/MM3 (4.0-11.0) Red Blood Count 2.47 MIL/MM3 (4.00-5.30) Hemoglobin 7.4 GM/DL (11.6-15.3) Hematocrit 21.9 % (35.0-46.0) Mean Corpuscular Volume 88.8 FL (80.0-100.0) Mean Corpuscular Hemoglobin 29.9 PG (27.0-34.0) Mean Corpuscular Hemoglobin 33.6 % Concent (32.0-36.0) Red Cell Distribution Width 19.2 % (11.6-17.2) Platelet Count 102 TH/MM3 (150-450) Mean Platelet Volume 8.3 FL (7.0-11.0) Neutrophils (%) (Auto) 91.7 % (16.0-70.0) Lymphocytes (%) (Auto) 2.0 % (9.0-44.0) Monocytes (%) (Auto) 4.0 % (0.0-8.0) Eosinophils (%) (Auto) 0.3 % (0.0-4.0) Basophils (%) (Auto) 2.0 % (0.0-2.0) Neutrophils # (Auto) 6.1 TH/MM3 (1.8-7.7) Lymphocytes # (Auto) 0.1 TH/MM3 (1.0-4.8) Monocytes # (Auto) 0.3 TH/MM3 (0-0.9) Eosinophils # (Auto) 0.0 TH/MM3 (0-0.4) Basophils # (Auto) 0.1 TH/MM3 (0-0.2) CBC Comment AUTO DIFF Differential Comment AUTO DIFF CONFIRMED Platelet Estimate LOW (NORMAL) Platelet Morphology Comment NORMAL (NORMAL) Ovalocytes 1+ (NORMAL) Leighton Cells 1+ (NORMAL) Acanthocytes 1+ (NORMAL) Keratocytes OCC (NORMAL) Sodium Level 134 MEQ/L 135 MEQ/L (136-145) (136-145) Potassium Level 3.6 MEQ/L 3.5 MEQ/L (3.5-5.1) (3.5-5.1) Chloride Level 100 MEQ/L 100 MEQ/L (98-107) (98-107) Carbon Dioxide Level 22.4 MEQ/L 24.5 MEQ/L (21.0-32.0) (21.0-32.0) Anion Gap 12 MEQ/L (5-15) 11 MEQ/L (5-15) Blood Urea Nitrogen 64 MG/DL (7-18) 59 MG/DL (7-18) Creatinine 2.87 MG/DL 1.96 MG/DL (0.50-1.00) (0.50-1.00) Estimat Glomerular Filtration 16 ML/MIN (>89) 25 ML/MIN (>89) Rate Random Glucose 166 MG/DL 214 MG/DL (74-106) (74-106) Calcium Level 8.0 MG/DL 7.9 MG/DL (8.5-10.1) (8.5-10.1) Total Bilirubin 0.5 MG/DL 0.4 MG/DL (0.2-1.0) (0.2-1.0) Aspartate Amino Transf 84 U/L (15-37) 59 U/L (15-37) (AST/SGOT) Alanine Aminotransferase 73 U/L (10-53) 61 U/L (10-53) (ALT/SGPT) Alkaline Phosphatase 57 U/L (45-117) 59 U/L (45-117) Total Protein 5.6 GM/DL 5.5 GM/DL (6.4-8.2) (6.4-8.2) Albumin 1.8 GM/DL 1.8 GM/DL (3.4-5.0) (3.4-5.0) Result Diagram: 01/31/17 0623 02/01/17 1248 Microbiology Microbiology Date/Time Procedure Status Source Growth 01/30/17 18:20 Aerobic Blood Culture - Final Resulted Blood Peripheral Staphylococcus Aureus 01/30/17 18:20 Anaerobic Blood Culture - Preliminary Resulted Gram Positive Cocci 01/30/17 18:30 Aerobic Blood Culture - Preliminary Resulted Blood Peripheral NO GROWTH IN 2 DAYS 01/30/17 18:30 Anaerobic Blood Culture - Preliminary Resulted Blood Peripheral NO GROWTH IN 2 DAYS Procedures * 01/26/17 -intubation . Assessment and Plan Disease Oriented Problem List: (1) Cardiac arrest (2) Respiratory failure (3) Atrial fibrillation Symptom Scale: (1) Shortness of breath 0-10 Scale: Unable to quantify Comment: Remains intubated on mechanical ventilation. (2) Debility 0-10 Scale: Unable to quantify Comment: Progressive. Worsen since October 2016. Pertinent Non-Medical Issues Psychosocial: . Has one child. Originally from the [place]. Spiritual: [employer] adeline. Legal: No living will completed. Designation of healthcare surrogate in file. Ethical issues impacting care: No ethical issues have been identified. . Important Contacts HCS/son Larry Tillman . Family friend Fior Giordano . . Prognosis Mrs. Tillman is a 71-year-old female with multiple chronic issues and multiple hospitalizations within the past 18 months. Patient with progressive decline, resident of [facility] facility since October 2016. Currently status post cardiac arrest, remains on life support. Likely anoxic brain injury. Prognosis is very poor for survival given acute events, multiple chronic comorbidities, multiple recent acute hospitalizations, advanced age and profound physical deconditioning. . Code Status: No Code Plan * CODE STATUS: No code. [facility], [facility] DNR signed. * HEALTHCARE DECISION-MAKING: Patient unable to participating medical decision- making secondary to clinical condition, unresponsive. Designation of healthcare surrogate in file, katrina Tillman listed as HCS. * GOALS OF CARE: Son electing to transition patient to comfort-directed care/ withdraw of life support and allow natural to occur given patient's poor prognosis for neurological recovery. * SYMPTOMS: = Shortness of breath, secondary to acute respiratory failure, COPD. Remains intubated on mechanical ventilation. FiO2 35%. = Debility, progressive and worsened during the past 3 months. Comfort medications added to include scheduled Hydromorphone and Ativan post extubation. * Exhibits B and C signed, placed chart. * Anticipatory guidance provided to family. Ongoing emotional support and active listening provided. * Discussed hospice should patient survives the night post extubation. Family receptive to this. * Case has been discussed with Dr. Noe and bedside RN Juliet. * Palliative care contact information has been provided to patient's family. . Time Spent Total Floor Time (mins): 48 (Total time to include review of medical records, physical exam, GOC conversation with son and addl fam members, case discussion with Dr Noe and juliet RN. ) >50% Counseling/Coord of Care: Yes Attestation To help prompt me to consider important information that might be impacting today's encounter and assessment, information from prior notes written by myself or my colleagues may have been "brought forward" into today's note. My signature on this note, however, is an attestation that I personally performed the exam, history, and/or decision-making noted today, and, unless otherwise indicated, the interactions with patient, family, and staff as well as the review of records all occurred today. I also attest that the listed assessment and stated plan reflect my best clinical judgment today based on the combination of historical information, prior notes, and today's exam/ interactions. When time spent is documented, it refers only to time spent today by the signer, or if indicated, combined time spent today by collaborating physician/nurse practitioner. Yolis Guerrier Feb 02, 2017 11:12
[2017-02-02] MEDS ORDERED: HYOSCYAMINE 0.5 MG/ML AMP IV PRN (11:15)
[2017-02-02] MEDS ORDERED: HYDROmorphone HCL PF 2 MG/ML VIAL IV PRN ×2 (11:15)
[2017-02-02] MEDS ORDERED: FUROSEMIDE 20 MG/2 ML VIAL IV PRN (11:15)
[2017-02-02] MEDS ORDERED: LORazepam 2 MG/ML VIAL IVS PRN (11:15)
[2017-02-02] MEDS ORDERED: LORazepam 2 MG/ML VIAL IV PRN ×2 (11:15→12:00)
[2017-02-02] MEDS ORDERED: HYOSCYAMINE 0.5 MG/ML AMP IV ONE (12:00)
[2017-02-02] MEDS ORDERED: LORazepam 2 MG/ML VIAL IV ONE ×2 (12:00)
[2017-02-02] MEDS ORDERED: HYDROmorphone HCL PF 2 MG/ML VIAL IV ONE ×2 (12:00)
--- NOTE | 2017-02-02 12:14 | HHI.CCPN ---
Subjective Remarks/Hospital Course 71 year-old woman, multiple medical problems, presents to the emergency department following cardiac arrest. Patient was reportedly last seen around 4 hours or so before she was found unresponsive. She had no pulse. CPR was started. EMS found the patient asystolic. They continued ACLS, intubation, 3 rounds of epi, some bicarbonate. The return of spontaneous circulation and patient presented to the ED hypotensive but with pulses. No other history is available 01/27: Discussed with son and Dr. Preciado. Patient showing signs of anoxic brain injury. She is overbreathing the ventilator. Trending troponins. 01/28: Tmax 102.7. Currently hypothermic. Heart rate in the 40s. No gag. No corneal reflex. Anuric. Spoke with son. 01/29: Temperature currently 98.8. Essentially anuric. Continues have mild clonus mouth activity. Again spoke with son yesterday very poor prognosis and all physicians on board agree Subjective 01/30: Remains severely encephalopathy critically ill. No spontaneous moments of any extremities noted. Mild involuntary clonus like movements of the mouth. I will repeat EEG today, MRI of the brain without contrast. Continues to spike fever white count now of 14.2 increasing, MAXIMUM TEMPERATURE 103.2. Will repeat panculture. Creatinine is worsening today3.4, urine output 403 ml in 24 hours 01/31: Patient has no neurological improvement. MRI done yesterday did show some subtle bilateral cortical anoxic changes. EEG improved from prior, No sz. Patient does not show any clinical signs of improvement, pupils are nonreactive no corneal reflex 02/01: No improvement in clinical exam. No pupillary reaction or corneal reflex. EGD today shows moderate to severe encephalopathy. Family asking information about ventilator withdrawal protocol, but wants input from neurology again. I will give 1 dose of Romazicon 0.5 mg IV x1 02/02: Patient has no improvement in neuro exam and family wants to withdraw active life support today. Comfort measures ordered Objective Vital Signs Date Time Temp Pulse Resp B/P Pulse Ox O2 Delivery O2 Flow Rate FiO2 02/02/17 07:23 100 35 02/02/17 06:00 111 02/02/17 04:00 98.6 18 123/79 Intake and Output 02/01/17 02/01/17 02/01/17 07:59 15:59 23:59 Intake Total 978 ml 1014 ml 901 ml Output Total 1550 ml 800 ml 500 ml Balance -572 ml 214 ml 401 ml Result Diagram: 01/31/17 0623 02/01/17 1248 Imaging Last 72 hours Impressions Chest X-Ray 01/27/17 0000 Signed Impressions: Service Date/Time: January 04:20 - CONCLUSION: No significant change with persistent near-complete opacification of the right hemithorax. Larry Curiel MD Head CT 01/26/172235 Signed Impressions: Service Date/Time: Thursday, January 26, 2017 23:36 - CONCLUSION: 1. Moderate amount of fluid in the sinuses involving the maxillary, ethmoid, and sphenoid sinuses. High density fluid is seen at the dependent portion of the left maxillary sinus. This may represent hemorrhagic material or proteinaceous material. Polyp or retention cyst is again seen in the left maxillary sinus. The fluid is new compared to the prior study of 01/07/2017. 2. No acute intracranial findings. Larry Curiel MD Chest X-Ray 01/26/172235 Signed Impressions: Service Date/Time: Thursday, January 26, 2017 22:35 - CONCLUSION: 1. Near-complete opacification of the right hemithorax again seen. 2. Endotracheal tube and nasogastric tube now in place. Larry Curiel MD Objective Remarks GENERAL: 71-year-old female, orotracheally intubated. SKIN: Warm and dry. Well perfused HEAD: Normocephalic. Atraumatic. EYES: No scleral icterus. No injection or drainage. NECK: Supple, trachea midline. No JVD or lymphadenopathy. CARDIOVASCULAR: Distant. S1, S2. No S4. Without murmurs, gallops, or rubs. RESPIRATORY: No breath sounds throughout right lung [place]. Left breath sounds with coarse rhonchi GASTROINTESTINAL: Abdomen soft, non-tender, obese. No bowel sounds appreciated MUSCULOSKELETAL: 1+ bilateral lower extremity edema. NEURO: Pupils currently not reactive 3 mm and fixed. No gag. No corneal reflex. Not withdrawing to pain. Involuntary movement/myoclonus of tongue Date of Insertion: Jan 27, 2017 Line: Central Venous Catheter Side: Right Location: Femoral A/P Assessment and Plan Neuro/Psych: Severe acute anoxic encephalopathy Adjustment disorder with missed anxiety and depressed mood Major depressive disorder Chronic headaches Insomnia Chronic benzodiazepine use Off all sedation, Versed discontinued 01/30/17. Give Romazicon 0.5 mg IV 1 02/01 EEG 02/01 Moderate to sev encephalopathy EEG 01/30 shows some interval improvement. Prev EEG revealed severe encephalopathy without epileptic activity MRI of the brain to evaluate anoxic brain injury-Dr. Clarke states some subtle changes of anoxia in bilateral cerebral cortex CT brain 01/27 revealed ethmoid, maxillary and sphenoid sinus fluid levels with possible blood within left maxillary sinus. Neurology Dr. Hamilton following, prognosis remains very poor Holding melatonin 3 mg a night for insomnia, Holding Seroquel 100 mg by mouth 3 times a day, Duloxetine 60 mill grams by mouth daily and Xanax 0.5 mg every 4 hours when necessary anxiety. Holding Daily [place] 5/325 one tablet every 4 hours ordered at home for pain CV: Cardiac pulmonary arrest likely respiratory related Atrial fibrillation Hypertension Congestive heart failure History of carotid stent History of permanent IVC filter 2012 Mild MR Cardiology - Dr. Borrego. No plans for intervention. Signed off Unknown duration postcardiac arrest - was not a candidate for hypothermia protocol per overnight flatwork tier Discontinue all cardiac medications as the patient is comfort measures only 2-D echo 11/01 revealed EF 40-45%. No regional wall motion abnormality. Mild MR. 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 Preciado who has been consulted Vocal cord polypectomy by history ACV mechanical ventilation Ventilator bundle. Duo nebs every 6 hours and albuterol every 2 hours PRN Patient has known scarring the right mainstem bronchus. Dr. Preciado has been consulted Withdrawal of life support today GI: Gastroesophageal reflux disease Chronic pancreatitis Hypoalbuminemia Elevated transaminases Nepro goal 50 cc an hour-DC Pepcid for GI prophylaxis. On Zantac 150 mg by mouth twice a day at care home Gwen-Colace for bowel regimen : Barnett catheter has been placed for accurate I's and O's in a critically ill patient Endo: Hypothyroidism Continue Levoxyl 50 mcg daily. Adjust as clinically indicated Sliding-scale insulin/low regimen with Accu-Cheks every 6 hours to maintain euglycemia Renal: Acute kidney failure Likely secondary to hypoperfusion. Worsening creatinine yesterday 3.44, but improved today to 2.8 with improved urine out put, after Barnett catheter was irrigated Accurate I's and O's Monitor urine output Heme: Chronic Xarelto use Normocytic anemia Thrombocytopenia Monitor CBC daily. Follow trends. No indications for transfusion of blood Holding Xarelto, on heparin drip for anticoagulation ID: Sepsis Urinary tract infection Aspiration pneumonia Aztreonam/Flagyl for aspiration. Follow blood cultures 2, no growth to date. Zyvox 600 BID 01/30 F/u blood urine and sputum culture Vanc 1 dose given for GPC in 1/4 bottles FEN: Hyponatremia Replace electrolytes as clinically indicated Currently on NS @ 30 cc an hour. Access - DCd right femoral CVL/arterial line on 01/30, placed in ED 01/27. Prophylaxis - GI -Pepcid - DVT - SCD/heparin drip Level 1 Plan is for withdrawal of life support, and comfort measures only Dulce Noe MD Feb 02, 2017 12:13
--- NOTE | 2017-02-02 13:01 | HHI.PR ---
Subjective Remarks Comatose on the vent . EEG shows severe encephalopathy. No spontaneous activity noted . FIO2 35 %. Poor prognosis per Neurology. Objective Vital Signs Date Time Temp Pulse Resp B/P Pulse Ox O2 Delivery O2 Flow Rate FiO2 02/02/17 07:23 100 35 02/02/17 06:00 111 02/02/17 04:26 100 35 02/02/17 04:00 35 02/02/17 04:00 109 02/02/17 04:00 98.6 109 18 123/79 99 02/02/17 02:00 110 02/02/17 01:02 99 35 02/02/17 00:00 110 02/02/17 00:00 35 02/02/17 00:00 98.8 110 20 143/87 100 02/01/17 22:00 87 02/01/17 21:58 100 35 02/01/17 20:00 35 02/01/17 20:00 71 02/01/17 20:00 98.6 71 18 149/75 100 02/01/17 18:00 71 02/01/17 16:00 99.0 72 18 155/70 100 02/01/17 16:00 35 02/01/17 16:00 72 02/01/17 15:55 100 35 02/01/17 15:00 71 02/01/17 14:00 71 02/01/17 13:00 71 I/O 02/01/17 02/01/17 02/01/17 02/02/17 02/02/17 02/02/17 07:00 15:00 23:00 07:00 15:00 23:00 Intake Total 978 ml 1014 ml 901 ml 843 ml Output Total 1550 ml 800 ml 500 ml 550 ml Balance -572 ml 214 ml 401 ml 293 ml IV Total 484 ml 644 ml 507 ml 439 ml Tube Feeding 374 ml 370 ml 274 ml 344 ml Other 120 ml 120 ml 60 ml Output Urine Total 1550 ml 800 ml 500 ml 550 ml # Bowel Movements 0 0 0 0 Result Diagram: 01/31/17 0623 02/01/17 1248 Objective Remarks GENERAL: This is a moderately obese elderly lady who is unresponsive. No reaction of pupils. HEENT: Head normocephalic. Pupils are irregular reactive. Throat has secretions. ET tube in place. NECK: Supple with mild venous distension. Trachea midline. CHEST: Decreased breath sounds over right lung [place] and wheezes are scattered over the left chest . CARDIAC: Heart sounds are regular S1-S2. No murmur. No S3. ABDOMEN: Soft and nontender. No organomegaly. Bowel sounds are active. EXTREMITIES: Edema 1+ with decreased pulses. NEUROLOGIC: Reflexes are not elicited. The patient does not withdraw to stimuli. SKIN: Dry and cool. Assessment and Plan Assessment and Plan IMPRESSION 1. Status post cardiopulmonary arrest 2. Acute respiratory failure with hypoxemia and hypercapnia. 3. History of carcinoma of the lung status post radiation and chemotherapy 4. Atelectasis right lung with radiation fibrosis 5. History of depression and anxiety 6. Atrial fibrillation and history of pulmonary emboli. 7. Hypoxic Encephalopathy Plan : 1. Vent Withdrawel per Family 2. Tube feeds at 50 CC 3. D/C IV meds 4. D/C nebs 5. Comfort measures Wandy Preciado MD Feb 02, 2017 13:01
--- NOTE | 2017-02-02 13:05 | PD.CARD.PN ---
Subjective Subjective Remarks Intubated, comatose Objective Medications Current Medications Medications (Trade) Dose Ordered Sig/Lorie Route Start Time Stop Time Status Last Admin (NS 1000 ml Inj) 1,000 ml @ 30 mls/hr Q24H IV 01/27/17 00:11 01/31/17 18:47 (NS Flush) 2 ml UNSCH PRN .XX 01/27/17 00:15 (NS Flush) 2 ml BID .XX 01/27/17 09:00 02/01/17 20:27 (Zofran Inj) 4 mg Q6H PRN IV 01/27/17 00:15 (Dulcolax Supp) 10 mg DAILY PRN RECTAL 01/27/17 00:15 (Ofirmev Inj) 1,000 mg Q8HR PRN IV 01/27/17 11:45 01/29/17 17:32 (SoluMEDROL INJ) 40 mg BID IV 01/27/17 21:00 02/02/17 10:13 (Lacrilube Opht Oint) 1 applic Q12HR EACH EYE 01/29/17 09:00 02/01/17 20:28 (Dilaudid Pf Inj) 0.75 mg Q30M PRN IV 02/02/17 11:15 (Dilaudid Pf Inj) 1 mg Q30M PRN IV 02/02/17 11:15 (Ativan Inj) 1 mg Q1H PRN IV 02/02/17 11:15 (Ativan Inj) 2 mg Q1H PRN IV 02/02/17 12:00 (Ativan Inj) 2 mg Q15M PRN IVS 02/02/17 11:15 (Levsin Inj) 0.25 mg Q4H PRN IV 02/02/17 11:15 (Lasix Inj) 20 mg Q6H PRN IV 02/02/17 11:15 (Dilaudid Pf Inj) 0.75 mg Q4HR IV 02/02/17 12:00 (Ativan Inj) 1 mg Q4HR IV 02/02/17 12:00 Vital Signs / I&O Vital Signs Date Time Temp Pulse Resp B/P Pulse Ox O2 Delivery O2 Flow Rate FiO2 02/02/17 07:23 100 35 02/02/17 06:00 111 02/02/17 04:26 100 35 02/02/17 04:00 35 02/02/17 04:00 109 02/02/17 04:00 98.6 109 18 123/79 99 02/02/17 02:00 110 02/02/17 01:02 99 35 02/02/17 00:00 110 02/02/17 00:00 35 02/02/17 00:00 98.8 110 20 143/87 100 02/01/17 22:00 87 02/01/17 21:58 100 35 02/01/17 20:00 35 02/01/17 20:00 71 02/01/17 20:00 98.6 71 18 149/75 100 02/01/17 18:00 71 02/01/17 16:00 99.0 72 18 155/70 100 02/01/17 16:00 35 02/01/17 16:00 72 02/01/17 15:55 100 35 02/01/17 15:00 71 02/01/17 14:00 71 I/O 02/01/17 02/01/17 02/01/17 02/02/17 02/02/17 02/02/17 07:00 15:00 23:00 07:00 15:00 23:00 Intake Total 978 ml 1014 ml 901 ml 843 ml Output Total 1550 ml 800 ml 500 ml 550 ml Balance -572 ml 214 ml 401 ml 293 ml IV Total 484 ml 644 ml 507 ml 439 ml Tube Feeding 374 ml 370 ml 274 ml 344 ml Other 120 ml 120 ml 60 ml Output Urine Total 1550 ml 800 ml 500 ml 550 ml # Bowel Movements 0 0 0 0 Physical Exam GENERAL: Intubated, on the vent SKIN: Warm and dry. HEAD: Normocephalic. EYES: No scleral icterus. No injection or drainage. NECK: Supple, trachea midline. No JVD or lymphadenopathy. CARDIOVASCULAR: Regular rate and rhythm without murmurs, gallops, or rubs. RESPIRATORY: Breath sounds equal bilaterally. No accessory muscle use. GASTROINTESTINAL: Abdomen soft, non-tender, nondistended. MUSCULOSKELETAL: No cyanosis, or edema. Laboratory Laboratory Tests Test 01/30/17 01/31/17 02/01/17 03:40 06:23 12:48 Differential Total Cells 100 Counted Neutrophils % (Manual) 72 % Band Neutrophils % 19 % Lymphocytes % 4 % Monocytes % 4 % Neutrophils # (Manual) 13.1 TH/MM3 Metamyelocytes 1 % Tear Drop Cells 1+ Lactic Acid Level 1.3 mmol/L Phosphorus Level 3.3 MG/DL Magnesium Level 2.2 MG/DL Total Creatine Kinase 49 U/L Troponin I 0.11 NG/ML Lipase 338 U/L White Blood Count 6.7 TH/MM3 Red Blood Count 2.47 MIL/MM3 Hemoglobin 7.4 GM/DL Hematocrit 21.9 % Mean Corpuscular Volume 88.8 FL Mean Corpuscular Hemoglobin 29.9 PG Mean Corpuscular Hemoglobin 33.6 % Concent Red Cell Distribution Width 19.2 % Platelet Count 102 TH/MM3 Mean Platelet Volume 8.3 FL Neutrophils (%) (Auto) 91.7 % Lymphocytes (%) (Auto) 2.0 % Monocytes (%) (Auto) 4.0 % Eosinophils (%) (Auto) 0.3 % Basophils (%) (Auto) 2.0 % Neutrophils # (Auto) 6.1 TH/MM3 Lymphocytes # (Auto) 0.1 TH/MM3 Monocytes # (Auto) 0.3 TH/MM3 Eosinophils # (Auto) 0.0 TH/MM3 Basophils # (Auto) 0.1 TH/MM3 CBC Comment AUTO DIFF Differential Comment AUTO DIFF CONFIRMED Platelet Estimate LOW Platelet Morphology Comment NORMAL Ovalocytes 1+ [place] Cells 1+ Acanthocytes 1+ Keratocytes OCC Sodium Level 135 MEQ/L Potassium Level 3.5 MEQ/L Chloride Level 100 MEQ/L Carbon Dioxide Level 24.5 MEQ/L Anion Gap 11 MEQ/L Blood Urea Nitrogen 59 MG/DL Creatinine 1.96 MG/DL Estimat Glomerular Filtration 25 ML/MIN Rate Random Glucose 214 MG/DL Calcium Level 7.9 MG/DL Total Bilirubin 0.4 MG/DL Aspartate Amino Transf 59 U/L (AST/SGOT) Alanine Aminotransferase 61 U/L (ALT/SGPT) Alkaline Phosphatase 59 U/L Total Protein 5.5 GM/DL Albumin 1.8 GM/DL Imaging Last Impressions Chest X-Ray 01/31/17 0600 Signed Impressions: Service Date/Time: Tuesday, January 31, 2017 04:46 - CONCLUSION: No significant interval change. Arie Olvera MD Brain MRI 01/30/17 0000 Signed Impressions: Service Date/Time: Monday, January 30, 2017 14:49 - CONCLUSION: Chronic atrophic and small vessel ischemic changes without any evidence for acute hemorrhage or mass effect and chronic sinusitis. Lian Wilburn MD ADDENDUM: Upon reading reviewing the MR brain. There are subtle areas of high flair abnormality in the cerebral cortex most notably within the frontal parietal lobes along the high convexities with restricted diffusion consistent with anoxic brain injury. Quang Clarke MD Head CT 01/26/17 1314 Signed Impressions: Service Date/Time: Thursday, January 26, 2017 23:36 - CONCLUSION: 1. Moderate amount of fluid in the sinuses involving the maxillary, ethmoid, and sphenoid sinuses. High density fluid is seen at the dependent portion of the left maxillary sinus. This may represent hemorrhagic material or proteinaceous material. Polyp or retention cyst is again seen in the left maxillary sinus. The fluid is new compared to the prior study of 01/07/2017. 2. No acute intracranial findings. Larry Curiel MD Assessment and Plan Problem List: (1) Cardiac arrest (2) Respiratory failure (3) Renal failure (4) Anoxic encephalopathy Assessment and Plan EEG c/w severe anoxic encephalopathy. No improvement of neurologic status. Prognosis is very poor. Family present, decided for withdrawal of care. Shiv Borrego MD Feb 02, 2017 13:05
[2017-02-02] MEDS: LORazepam 2 MG/ML VIAL IV SCH ×3 (14:15→20:00)
[2017-02-02] MEDS: ARTIFICIAL TEARS OPTH OINT 3.5 APPLIC/3.5 GM TUBO EACH EYE SCH ×2 (14:15→21:00)
[2017-02-02] MEDS: HYDROmorphone HCL PF 2 MG/ML VIAL IV SCH ×2 (14:16→20:00)
[2017-02-02] MEDS ORDERED: SCOPOLAMINE 1.5 MG PATCH SCH (18:00)
[2017-02-02] MEDS ORDERED: LORazepam 1 MG TAB SL PRN (18:45)
[2017-02-02] MEDS ORDERED: ATROPINE SULFATE 1% OPHT SOLN 5 ML BTL SL PRN (18:45)
[2017-02-02] MEDS: LORazepam 1 MG TAB SL SCH ×2 (19:26→21:01)
--- NOTE | 2017-02-03 09:04 | DEATH SUM ---
Summary Demographics Date Pronounced : Feb 02, 2017 Time Of : 2214 Pronounced By: Gardenia Reyes Preliminary Cause of : Cardiac arrest Dulce Noe MD Feb 03, 2017 09:04
--- NOTE | 2017-02-03 09:09 | HHI.DS ---
Summary Note Date of : Feb 02, 2017 Time Of : 2214 Admission Date Jan 26, 2017 at 23:54 Admitting Diagnosis asystolic cardiac arrest Diagnosis at Time of : (1) Anoxic brain injury ICD Code: G93.1 Diagnosis: Principal (2) Acute respiratory failure ICD Code: J96.00 Diagnosis: Principal (3) Severe sepsis ICD Code: A41.9 Diagnosis: Principal (4) Acute kidney failure ICD Code: N17.9 Diagnosis: Principal (5) Acute encephalopathy ICD Code: G93.40 Diagnosis: Principal (6) COPD (chronic obstructive pulmonary disease) ICD Code: J44.9 Diagnosis: Secondary (7) History of NC (myocardial infarction) ICD Code: I25.2 Diagnosis: Secondary (8) Chronic kidney disease ICD Code: N18.9 Diagnosis: Secondary (9) Small cell lung cancer ICD Code: C34.90 Diagnosis: Secondary Brief History 71 year-old woman, multiple medical problems, presents to the emergency department following cardiac arrest. Patient was reportedly last seen around 4 hours or so before she was found unresponsive. She had no pulse. CPR was started. EMS found the patient asystolic. They continued ACLS, intubation, 3 rounds of epi, some bicarbonate. The return of spontaneous circulation and patient presented to the ED hypotensive but with pulses. No other history is available. CBC/BMP: 01/31/17 0623 02/01/17 1248 Significant Findings Laboratory Tests Test 02/01/17 12:48 Sodium Level 135 MEQ/L (136-145) Blood Urea Nitrogen 59 MG/DL (7-18) Creatinine 1.96 MG/DL (0.50-1.00) Estimat Glomerular Filtration 25 ML/MIN (>89) Rate Random Glucose 214 MG/DL (74-106) Calcium Level 7.9 MG/DL (8.5-10.1) Aspartate Amino Transf 59 U/L (15-37) (AST/SGOT) Alanine Aminotransferase 61 U/L (10-53) (ALT/SGPT) Total Protein 5.5 GM/DL (6.4-8.2) Albumin 1.8 GM/DL (3.4-5.0) Imaging Last 72 hours Impressions Chest X-Ray 01/27/17 0000 Signed Impressions: Service Date/Time: January 04:20 - CONCLUSION: No significant change with persistent near-complete opacification of the right hemithorax. Larry Curiel MD Head CT 01/26/172235 Signed Impressions: Service Date/Time: Thursday, January 26, 2017 23:36 - CONCLUSION: 1. Moderate amount of fluid in the sinuses involving the maxillary, ethmoid, and sphenoid sinuses. High density fluid is seen at the dependent portion of the left maxillary sinus. This may represent hemorrhagic material or proteinaceous material. Polyp or retention cyst is again seen in the left maxillary sinus. The fluid is new compared to the prior study of 01/07/2017. 2. No acute intracranial findings. Larry Curiel MD Chest X-Ray 01/26/172235 Signed Impressions: Service Date/Time: Thursday, January 26, 2017 22:35 - CONCLUSION: 1. Near-complete opacification of the right hemithorax again seen. 2. Endotracheal tube and nasogastric tube now in place. Larry Curiel MD Hospital Course 71 year-old woman, multiple medical problems, presents to the emergency department following cardiac arrest. Patient was reportedly last seen around 4 hours or so before she was found unresponsive. She had no pulse. CPR was started. EMS found the patient asystolic. They continued ACLS, intubation, 3 rounds of epi, some bicarbonate. The return of spontaneous circulation and patient presented to the ED hypotensive but with pulses. No other history is available 01/27: Discussed with son and Dr. Preciado. Patient showing signs of anoxic brain injury. She is overbreathing the ventilator. Trending troponins. 01/28: Tmax 102.7. Currently hypothermic. Heart rate in the 40s. No gag. No corneal reflex. Anuric. Spoke with son. 01/29: Temperature currently 98.8. Essentially anuric. Continues have mild clonus mouth activity. Again spoke with son yesterday very poor prognosis and all physicians on board agree Subjective 01/30: Remains severely encephalopathy critically ill. No spontaneous moments of any extremities noted. Mild involuntary clonus like movements of the mouth. I will repeat EEG today, MRI of the brain without contrast. Continues to spike fever white count now of 14.2 increasing, MAXIMUM TEMPERATURE 103.2. Will repeat panculture. Creatinine is worsening today3.4, urine output 403 ml in 24 hours 01/31: Patient has no neurological improvement. MRI done yesterday did show some subtle bilateral cortical anoxic changes. EEG improved from prior, No sz. Patient does not show any clinical signs of improvement, pupils are nonreactive no corneal reflex 02/01: No improvement in clinical exam. No pupillary reaction or corneal reflex. EGD today shows moderate to severe encephalopathy. Family asking information about ventilator withdrawal protocol, but wants input from neurology again. I will give 1 dose of Romazicon 0.5 mg IV x1 02/02: Patient has no improvement in neuro exam and family wants to withdraw active life support today. Comfort measures ordered Active lifes support was withdrawn per family request patient at 2215 on 02/02/17 Dulce Noe MD Feb 03, 2017 09:09
== END 2017-02-02 22:15 | disposition expired | DRG 207 ==
LOC: NEPC 21:50 → NEDA 23:54 → HIME 01-27 01:00
PROVIDERS: ADMIT Internal Medicine; ATTEND Internal Medicine
PROC: 0T9B70Z Drainage of Bladder with Drainage Device, Via Natural or Artificial Opening (ICD-10-PCS; principal; 2017-01-26)
PROC: 5A1955Z Respiratory Ventilation, Greater than 96 Consecutive Hours (ICD-10-PCS; 2017-01-26)
PROC: 04HY32Z Insertion of Monitoring Device into Lower Artery, Percutaneous Approach (ICD-10-PCS; 2017-01-26)
DX: J96.01 Acute respiratory failure with hypoxia (principal); J69.0 Pneumonitis due to inhalation of food and vomit; I46.9 Cardiac arrest, cause unspecified; R65.20 Severe sepsis without septic shock; G93.1 Anoxic brain damage, not elsewhere classified; A41.9 Sepsis, unspecified organism; R34 Anuria and oliguria; J44.1 Chronic obstructive pulmonary disease with (acute) exacerbation; I95.9 Hypotension, unspecified; J44.9 Chronic obstructive pulmonary disease, unspecified; J70.1 Chronic and other pulmonary manifestations due to radiation; K86.1 Other chronic pancreatitis; I50.32 Chronic diastolic (congestive) heart failure; J98.11 Atelectasis; E87.1 Hypo-osmolality and hyponatremia; N39.0 Urinary tract infection, site not specified; J96.02 Acute respiratory failure with hypercapnia; I11.0 Hypertensive heart disease with heart failure; F03.90 Unspecified dementia, unspecified severity, without behavioral disturbance, psychotic disturbance, mood disturbance, and anxiety; Z99.81 Dependence on supplemental oxygen; E11.9 Type 2 diabetes mellitus without complications; I25.10 Atherosclerotic heart disease of native coronary artery without angina pectoris; Z79.02 Long term (current) use of antithrombotics/antiplatelets; I48.2 Chronic atrial fibrillation; F41.9 Anxiety disorder, unspecified; F32.9 Major depressive disorder, single episode, unspecified; E03.9 Hypothyroidism, unspecified; K21.9 Gastro-esophageal reflux disease without esophagitis; Z78.1 Physical restraint status; Z85.118 Personal history of other malignant neoplasm of bronchus and lung; G25.3 Myoclonus; Z51.5 Encounter for palliative care; I25.2 Old myocardial infarction; Z92.21 Personal history of antineoplastic chemotherapy; Z92.3 Personal history of irradiation; N28.89 Other specified disorders of kidney and ureter; Z87.891 Personal history of nicotine dependence; Z80.0 Family history of malignant neoplasm of digestive organs; Z80.7 Family history of other malignant neoplasms of lymphoid, hematopoietic and related tissues; Z80.51 Family history of malignant neoplasm of kidney; Z81.8 Family history of other mental and behavioral disorders; Z63.72 Alcoholism and drug addiction in family; M19.90 Unspecified osteoarthritis, unspecified site; Z87.01 Personal history of pneumonia (recurrent); Z86.711 Personal history of pulmonary embolism; F43.20 Adjustment disorder, unspecified; G47.00 Insomnia, unspecified; E88.09 Other disorders of plasma-protein metabolism, not elsewhere classified; D64.9 Anemia, unspecified; R00.1 Bradycardia, unspecified; D69.6 Thrombocytopenia, unspecified; Z66 Do not resuscitate; R00.0 Tachycardia, unspecified
CPT/HCPCS: 36000; 36556; 70450; 70551; 71010; 76937; 80053; 81001; 82550; 82805; 82948; 83605; 83690; 83735; 84100; 84443; 84484; 85007; 85025; 85027; 85610; 85730; 87040; 87086; 87641; 93005; 94002; 94003; 94640; 94664; 94770; 95819; 96374; J0131; J0171; J0461; J1170; J1980; J2020; J2060; J2250; J2920; J3370; J7030; J7050